=== PATIENT | male | born 1995 | race Caucasian/White ===

== ENCOUNTER 2022-06-11 15:00 | Outpatient (RCR) | payer MEDICARE, MEDICAID, SELFPAY ==
[2022-06-03 10:15] VITALS: BP 115/78; PULSE 99; TEMP 35.7; BMI 23.7
--- NOTE | 2022-06-03 11:18 | PCM.WC.HP ---
History of Present Illness Date of Service: 06/03/22 Chief Complaint: Left buttock ulcer History of Wound: Patient is accompanied with his mother. He is a 26 year old with a history of Spina bifida presents with a pressure ulcer that start six weeks ago. He bumped his buttocks sometime during the summer and did not tell his mother until it was infected and draining. He initially went to [facility] and was hospitalized 3 days, then transferred to [facility] and was admitted for a week. They were initially told he would need surgery, then were told he didn't need surgery. He was discharged 2 weeks ago. He has a history of Spina bifida which he has had bilateral hip surgery for hip dysplasia at age 8 and another surgery on legs bilaterally to help him wear braces to stand, which he never has been able to do. He had a sacral muscle flap at age 14 at [facility] for an ulcer. Also has a history of hydrocephalous with a shunt. He uses a wheelchair. He states his air cushion for his chair has deflated. He is not completely sure when he received his current wheelchair. He sleeps on a regular mattress with a foam overlay. Upon discharge from , there were no instructions on how to manage the wound. Patient's mother has been covering with large band aid and gauze. Wound care - Right buttocks ulcer Dakins 0.25% moistened gauze covered with ABD/Super absorber daily and as needed (he is incontinent of stool). Left buttock ulcer Aquacel-Ag covered with gauze daily. Wash ulcers with soap and water at the time of the dressing changes. Today denies fever, chills, nausea and vomiting. Appetite is typically good, he is recently getting over the GI flu, therefore has not been eating as much as he typically does. Progress of Wound: Left buttocks ulcer is stage IV, it is beefy pink tunneling into the muscle, with no bone exposure but is palpable. There is a small stage II ulcer on right buttocks that is beefy pink. [facility] Medical History Congenital hip dysplasia Ventricular shunt in place Allergy/AdvReac Type Severity Reaction Status Date / Time Penicillins Allergy Nausea/Vom/ Verified 06/03/22 10:45 Diarrhea Surgical History (Reviewed 06/03/22 @ 11:38 by Brianna Nunes WORKFORCE MANAGEMENT ANALYST, WORKFORCE MANAGEMENT ANALYST-C) S/P flap graft ROS Constitutional Constitutional: Reports as per HPI Eyes Eyes: Reports none ENT HEENT: Reports systems reviewed and no addt'l complaints, except as documented Cardiovascular Cardiovascular: Denies chest pain at rest or dyspnea Respiratory/Chest Respiratory/Chest: Reports systems reviewed and no addt'l complaints, except as documented Gastrointestinal Gastrointestinal: Reports fecal incontinence Genitourinary Genitourinary: Reports systems reviewed and no addt'l complaints, except as documented Musculoskeletal Musculoskeletal: Reports as per HPI Integumentary Integumentary: Reports as per HPI and skin ulcer Neurologic Neurologic: Reports as per HPI and other Details: Shunt placed for hydrocephalous Psychiatric Psychiatric: Reports systems reviewed and no addt'l complaints, except as documented Endocrine Endocrinology: Reports none Hematologic/Lymphatic Hematologic/Lymphatic: Reports none Allergic/Immunologic Allergic/Immunologic: Reports none Vital Signs Vital Signs Vital Signs: 06/03/22 10:15 Temperature 96.3 F L Temperature Source Temporal Pulse Rate 99 Blood Pressure 115/78 Blood Pressure Mean 90 Weight Weight: 175 lb Body Mass Index (BMI) 23.7 Physical Exam Const alert, oriented x3 and no apparent distress General Appearance: cooperative HEENT normocephalic Head and Scalp: atraumatic Eyes General Eye: normal appearance of both eyes Neck full ROM Resp normal respiratory effort, normal air movement and clear to auscultation bilaterally Effort and Inspection: able to speak in complete sentences Cardio regular rate and regular rhythm GI normal to inspection, nondistended, normoactive bowel sounds, soft to palpation and non-tender Back/Spine Cervical Spine: cervical ROM normal Extremity General Extremity: atrophy Skin Wound Narrative: Left buttocks ulcer is stage IV, it is beefy pink tunneling into the muscle, with no bone exposure but is palpable. There is a small stage II ulcer on right buttocks that is beefy pink. Neuro oriented x3 Psych cooperative and affect normal Debridement Note Debridement Note Wound debrided: buttock ulcer Laterality: Left Wound Grade/Stage: Stage IV Type of Debridement: Excisional debridement Anesthesia Used: 5% Lidocaine Gel Depth: Down to and including healthy tissue, in the subcutaneous layer and to muscle Percentage of wound debrided: 100 Instrument Used: 7mm curette Tissue Removed: Non vitalized tissue and slough Severity: Fat Layer Exposed Amount of bleeding with debridement: Mild Bleeding Controlled with: Compression and gauze Patient tolerated procedure: Patient tolerated procedure well Post-Debridement Measurements and Additional Note: Post-Debridement Measurements/Treatment - Nurse 1 - General Ulcer Assessment Start: 06/03/22 10:10 Freq: Status: Active Protocol: ANDREW Activity Type Activity Date Activity User E-sign Co-sign Detail Recorded Client Recorded Date Recorded By Document 06/03/22 10:15 JOSE ROBERTO [id number] 06/03/22 10:25 ID 06/03/22 10:15 WC - Today's Visit Information Type of service Initial Visit Arrival Mode Wheelchair Patient Identification Verified (Name & Yes ) Patient Requires Transmission-Based No Precautions Safety Precautions NA Height and Weight Height 6 ft Weight 175 lb Weight in Pounds 175.0 lbs Body Mass Index (BMI) 23.7 BMI Classification Normal BSA - Jayna 2.01 Vital Signs Temperature (97.8 F-99.1 F) 96.3 F L Temperature Source Temporal Pulse Rate (60-100) 99 Pulse Location Monitor Blood Pressure (90/60-120/80) 115/78 Blood Pressure Mean 90 History Since Last Visit- (Skip if this is Patient's initial visit) Has compression in place as prescribed N/A Has offloadiing in place as prescribed N/A Experienced any changes in pain level or No management Left Footwear Regular Shoe Right Footwear Regular Shoe Pain Scale: 0-10 Numeric Is Patient Pain Free? Yes [facility] Nurse 1 - General Ulcer Measurement Start: 06/03/22 10:10 Freq: Status: Active Protocol: Activity Type Activity Date Activity User E-sign Co-sign Detail Recorded Client Recorded Date Recorded By Document 06/03/22 10:15 JOSE ROBERTO [id number] 06/03/22 10:25 ID 06/03/22 10:15 Wound Center Nurse 1 #1 left buttucks -Current Size (cm) - Length 7 -Current Size (cm) - Width 5.8 -Current Size (cm) - Depth 2.5 -Total Square Cm 40.6 -Date of Last Picture (Recall this 06/03/22 field) -Photo Taken Yes -Tunneling Yes -Tunneling Position (O'clock) 9 -Tunneling Distance (cm) 5.2 -Tunneling Position #2 (O'clock) 3 -Undermining/Tunneling No -Circular Undermining No -Change in Wound Grade/Stage No -Exudate Amt Medium -Exudate Type Serosanguineous -Wound Margin Distinct, Outline Attached -Granulation Amt Large (67-100%) -Granulation Quality Burchinal,Red -Slough/Fibrin Yes -Necrosis Amt Medium (34-66%) -Necrotic Tissue Type Adherent Slough -Structure Exposed N/A -Texture (Meliza-wound Skin Appearance) No Abnormality, Assessed -Moisture (Meliza-wound Skin Appearance) No Abnormality, Assessed -Color (Meliza-wound Skin Appearance) No Abnormality, Assessed -Temperature (Meliza-wound Skin No Abnormality Appearance) (Pt Warm) -Tenderness on Palpation (Meliza-wound No Skin Appearance) -Ulcer Cleansing Soap and Water -Foul Odor after Cleansing No -Anesthetic Used 4% Lidocaine Solution WC - Nurse 2 - General Ulcer CM Notes Start: 06/03/22 10:10 Freq: Status: Active Protocol: Activity Type Activity Date Activity User E-sign Co-sign Detail Recorded Client Recorded Date Recorded By Document 06/03/22 10:54 BILLY [id number] 06/03/22 11:00 BILLY 06/03/22 10:54 Wound Center Nurse 2 2-right buttucks -Time 10:57 -Correct Patient Yes -Correct Side, Site, Position Yes -Correct Procedure Yes -Procedure Performed Yes -Type of Procedure Debridement -Clinical Debridement Subcutaneous -Tissue Removed Subcutaneous -Post Debridement (cm) - Length 1.4 -Post Debridement (cm) - Width 1.7 -Post Debridement (cm) - Depth 0.1 -Total Square (Post) (cm) 2.38 -Area of Debridement (cm) - Length 1.4 -Area of Debridement (cm) - Width 1.7 -Total Square (Area) (cm) 2.38 -Tunneling No -Undermining/Tunneling No -Circular Undermining No -Wound/Ulcer Outcome Not Healed -Ulcer Cleansing Rinsed/ Irrigated with Saline -Foul Odor after Cleansing No -Bioengineered Tissue No -Bleeding Controlled with Pressure -Treatment Response Procedure Tolerated Well -Offloading No -Debridement - Subq, 1st 20sq cm Yes #1 left buttucks -Time 10:55 -Correct Patient Yes -Correct Side, Site, Position Yes -Correct Procedure Yes -Procedure Performed Yes -Type of Procedure Incision & Drainage -Clinical Debridement Muscle / Fascia -Tissue Removed Muscle,Fascia -Post Debridement (cm) - Length 7.0 -Post Debridement (cm) - Width 6.5 -Post Debridement (cm) - Depth 5.3 -Total Square (Post) (cm) 45.50 -Area of Debridement (cm) - Length 7 -Area of Debridement (cm) - Width 6.5 -Total Square (Area) (cm) 45.5 -Tunneling No -Undermining/Tunneling No -Circular Undermining No -Wound/Ulcer Outcome Not Healed -Ulcer Cleansing Rinsed/ Irrigated with Saline -Foul Odor after Cleansing No -Bioengineered Tissue No -Bleeding Controlled with Pressure -Treatment Response Procedure Tolerated Well -Offloading No -Debridement - Muscle / Fascia, 1st Yes 20sq cm -Debridement, Muscle/Fascia, ea addt'l 3 20sq cm or part thereof Pain Scale: 0-10 Numeric Is Patient Pain Free? Yes Additional Wound Wound debrided: buttocks ulcer Laterality: Right Wound Grade/Stage: Stage II Type of Debridement: Excisional debridement Anesthesia Used: 5% Lidocaine Gel Depth: Down to and including healthy tissue and in the subcutaneous layer Percentage of wound debrided: 100 Instrument Used: 3mm curette Tissue Removed: Devitalized tissue and slough Severity: Fat Layer Exposed Amount of bleeding with debridement: Mild Bleeding Controlled with: Compression and gauze Patient tolerated procedure: Patient tolerated procedure well Charges/Coding Visit Charges Office Visits / Consults: 41140 OV L3 New (25 modifier) Procedures Integumentary [id number]: [id number] Camelia musc/fascia 20 sq cm/< (left buttock) Add On Codes: 14736 Camelia musc/fascia add-on (x2) Multi Select Codes Integumentary Integumentary CPT Codes: 29534 Camelia subq tissue 20 sq cm/< (right buttock) Assessment/Plan Assessment/Plan (1) Decubitus ulcer of left buttock, stage 4: CODE(S): L89.324 - Pressure ulcer of left buttock, stage 4 (2) Decubitus ulcer of right buttock, stage 2: CODE(S): L89.312 - Pressure ulcer of right buttock, stage 2 (3) Spina bifida: CODE(S): Q05.9 - Spina bifida, unspecified (4) Wheelchair dependence: CODE(S): Z99.3 - Dependence on wheelchair PLAN: Plan Patient evaluated at the wound center. Would like to obtain recent records from both [facility] [place] and inpatient visits. A wound culture was obtained today, 06/03/22.? A positive culture will necessitate antibiotic therapy. Wound care - Left buttock ulcer Dakins 0.25% moistened gauze covered with ABD/super absorber. Right buttock ulcer Aquacel-Ag covered with gauze. Both dressings are daily and as needed after washing with soap and water. A hospital bed with a low air loss mattress would be beneficial for his stage IV left buttock ulcer that is into the muscle and able to palpate bone. Would like to prevent this ulcer from worsening. A new Roho cushion for his wheelchair to help with pressure when he is sitting in it, his current cushion is flat. H should be evaluated to see if it is time for a new wheelchair. He has several areas on his wheelchair that could potentially cause injury if his legs were to bump into them. Greater than 40 minutes spent with patient and his mother evaluating, educating, establishing plan of care, and documenting.
[2022-06-11 15:27] VITALS: BP 123/92; PULSE 102; RESP 16; TEMP 36.8; BMI 23.7
--- NOTE | 2022-06-11 16:11 | PCM.WC.PN ---
History of Present Illness Date of Service: 06/11/22 Chief Complaint: Left buttock ulcer History of Wound: Patient is accompanied with his mother. He is a 26 year old with a history of Spina bifida presents with a pressure ulcer that start six weeks ago. He bumped his buttocks sometime during the summer and did not tell his mother until it was infected and draining. He initially went to [facility] on 04/28/22 and was hospitalized [address] was obtained on 04/29/22 that showed rim-enhancing perirectal fluid collection measuring 3.9 x 6.2 cm, compatible with an abscess and UTI, he was treated with Meropenem. He was transferred to [facility] and they performed a bedside debridement on 05/02/22, and went to interventional radiology for drainage of his perirectal abscess on 05/03/22 but IR didn't find anything to drain. He was discharged home on 05/05/22. He has a history of Spina bifida which he has had bilateral hip surgery for hip dysplasia at age 8 and another surgery on legs bilaterally to help him wear braces to stand, which he never has been able to do. He had a sacral muscle flap at age 14 at [facility] for an ulcer. Also has a history of hydrocephalous with a ventricular peritoneal catheter He uses a wheelchair. He states his air cushion for his chair has deflated. He is not completely sure when he received his current wheelchair. He sleeps on a regular mattress with a foam overlay. Upon discharge from , there were no instructions on how to manage the wound. Patient's mother has been covering with large band aid and gauze. Wound care - Left buttocks ulcer Dakins 0.25% moistened gauze covered with ABD/Super absorber daily and as needed (he is incontinent of stool). Right buttock ulcer Collagen hydrogel covered with gauze daily. Wash ulcers with soap and water at the time of the dressing changes. Wound culture from 06/03/22 positive for Bacillus sp. no anthracis and Staphylococcus epidermidis. Will start him on Levaquin. Today denies fever, chills, nausea and vomiting. Appetite is typically good, he is recently getting over the GI flu, therefore has not been eating as much as he typically does. Progress of Wound: Left buttocks ulcer is stage IV, it is beefy pink tunneling into the muscle, with no bone exposure but is palpable. There is a small stage II ulcer on right buttocks that is almost healed this week after using Aquacel-Ag on it. Objective Data Objective Data Vital Signs: Vital Signs Temp Pulse Resp BP O2 Del Method 98.3 F 102 H 16 123/92 H Room Air 06/11/22 15:27 06/11/22 15:27 06/11/22 15:27 06/11/22 15:27 06/11/22 15:27 Oxygen Delivery Method Room Air Weight: 175 lb Body Mass Index (BMI) 23.7 Lab / Micro Data Micro: Microbiology 06/03/22 10:50 Wound Abcess - Sacral Gram Stain - Final 06/03/22 10:50 Wound Abcess - Sacral Wound Culture - Final Bacillus sp., not anthracis Staphylococcus epidermidis 06/03/22 10:50 Wound Abcess - Sacral Anaerobic Culture - Final No anaerobic bacteria isolated. Charges/Coding Procedures Integumentary 111xxx-113xx: [id number] Camelia musc/fascia 20 sq cm/< Add On Codes: [id number] Camelia musc/fascia add-on (x2) Debridement Note Debridement Note Wound debrided: buttock ulcer Laterality: Left Wound Grade/Stage: Stage IV Type of Debridement: Excisional debridement Anesthesia Used: 5% Lidocaine Gel Depth: Down to and including healthy tissue, in the subcutaneous layer and to muscle Percentage of wound debrided: 100 Instrument Used: 7mm curette Tissue Removed: Non vitalized tissue and slough, into the muscle Severity: Fat Layer Exposed Amount of bleeding with debridement: Mild Bleeding Controlled with: Compression and gauze Patient tolerated procedure: Patient tolerated procedure well Post-Debridement Measurements and Additional Note: Post-Debridement Measurements/Treatment - Nurse 1 - General Ulcer Assessment Start: 06/03/22 10:10 Freq: Status: Active Protocol: ANDREW Activity Type Activity Date Activity User E-sign Co-sign Detail Recorded Client Recorded Date Recorded By Document 06/03/22 10:15 AK [id number] 06/03/22 10:25 AK Document 06/11/22 15:27 MW [id number] 06/11/22 15:47 MW 06/03/22 06/11/22 10:15 15:27 WC - Today's Visit Information Type of service Initial Visit Follow-up Visit (Physician/FIELD INVESTIGATOR ) Arrival Mode Wheelchair Wheelchair Transfer Assistance None Accompanied by mom Patient Identification Verified (Name & Yes Yes ) Patient Requires Transmission-Based No No Precautions Safety Precautions NA Fall Prevention Height and Weight Height 6 ft Weight 175 lb Weight in Pounds 175.0 lbs Body Mass Index (BMI) 23.7 23.7 BMI Classification Normal Normal BSA - Jayna 2.01 Vital Signs Temperature (97.8 F-99.1 F) 96.3 F L 98.3 F Temperature Source Temporal Temporal Pulse Rate (60-100) 99 102 H Pulse Location Monitor Monitor Respiratory Rate (12-18) 16 Respiratory rate source Observation Oxygen Delivery Method Room Air Blood Pressure (90/60-120/80) 115/78 123/92 H Blood Pressure Mean (mm Hg) 90 102 Source Monitor Position Sitting Blood Pressure Location Left Arm History Since Last Visit- (Skip if this is Patient's initial visit) Have you changed medications since your No last visit? Any new allergies or adverse reactions No Had a fall/change in ADL's that may No increase risk of falls Signs or symptoms of abuse and/or No neglect since last visit Have you been in the hospital since your No last visit? Has dressing in place as prescribed Yes Has compression in place as prescribed N/A N/A Has offloadiing in place as prescribed N/A Yes Experienced any changes in pain level or No No management Left Footwear Regular Shoe Regular Shoe Right Footwear Regular Shoe Regular Shoe Pain Scale: 0-10 Numeric Is Patient Pain Free? Yes Yes - Nurse 1 - General Ulcer Measurement Start: 06/03/22 10:10 Freq: Status: Active Protocol: Activity Type Activity Date Activity User E-sign Co-sign Detail Recorded Client Recorded Date Recorded By Document 06/03/22 10:15 AK [id number] 06/03/22 10:25 AK Document 06/11/22 15:27 MW [id number] 06/11/22 15:47 MW 06/03/22 06/11/22 10:15 15:27 Wound Center Nurse 1 2-right buttucks -Combined with other wound No -Current Size (cm) - Length 0.1 -Current Size (cm) - Width 0.1 -Current Size (cm) - Depth 0.1 -Total Square Cm 0.01 -Date of Last Picture (Recall this 06/11/22 field) -Photo Taken Yes -Epithelialization Small 1-33% -Tunneling No -Undermining/Tunneling No -Circular Undermining No -Exudate Amt Small -Exudate Type Serosanguineous -Wound Margin Flat & Intact -Granulation Amt Large (67-100%) -Granulation Quality Gulf -Slough/Fibrin Yes -Necrosis Amt Small (1-33%) -Necrotic Tissue Type Adherent Slough -Structure Exposed N/A -Texture (Meliza-wound Skin Appearance) No Abnormality, Assessed -Moisture (Meliza-wound Skin Appearance) No Abnormality, Assessed -Color (Meliza-wound Skin Appearance) No Abnormality, Assessed -Temperature (Meliza-wound Skin No Abnormality Appearance) (Pt Warm) -Tenderness on Palpation (Meliza-wound No Skin Appearance) -Ulcer Cleansing Soap and Water -Foul Odor after Cleansing No -Anesthetic Used 4% Lidocaine Solution #1 left buttucks -Combined with other wound No -Current Size (cm) - Length 7 7.2 -Current Size (cm) - Width 5.8 3.0 -Current Size (cm) - Depth 2.5 4.5 -Total Square Cm 40.6 21.60 -Date of Last Picture (Recall this 06/03/22 06/11/22 field) -Photo Taken Yes Yes -Epithelialization None Present -Tunneling Yes Yes -Tunneling Position (O'clock) 9 12 -Tunneling Distance (cm) 5.2 5.5 -Tunneling Position #2 (O'clock) 3 -Undermining/Tunneling No No -Circular Undermining No No -Change in Wound Grade/Stage No -Exudate Amt Medium Large -Exudate Type Serosanguineous Serosanguineous -Wound Margin Distinct, Distinct, Outline Outline Attached Attached -Granulation Amt Large (67-100%) Large (67-100%) -Granulation Quality Gulf,[place] -Slough/Fibrin Yes Yes -Necrosis Amt Medium (34-66%) Small (1-33%) -Necrotic Tissue Type Adherent Slough Adherent Slough -Structure Exposed N/A N/A -Texture (Meliza-wound Skin Appearance) No Abnormality, Assessed, Assessed Scarring -Moisture (Meliza-wound Skin Appearance) No Abnormality, No Abnormality, Assessed Assessed -Color (Meliza-wound Skin Appearance) No Abnormality, No Abnormality, Assessed Assessed -Temperature (Emliza-wound Skin No Abnormality No Abnormality Appearance) (Pt Warm) (Pt Warm) -Tenderness on Palpation (Meliza-wound No No Skin Appearance) -Ulcer Cleansing Soap and Water Soap and Water -Foul Odor after Cleansing No No -Anesthetic Used 4% Lidocaine 4% Lidocaine Solution Solution Lower Limb Edema Present NA WC - Nurse 2 - General Ulcer CM Notes Start: 06/03/22 10:10 Freq: Status: Active Protocol: Activity Type Activity Date Activity User E-sign Co-sign Detail Recorded Client Recorded Date Recorded By Document 06/03/22 10:54 [id number] 06/03/22 11:00 Document 06/11/22 16:05 [id number] 06/11/22 16:09 06/03/22 06/11/22 10:54 16:05 Wound Center Nurse 2 2-right buttucks -Time 10:57 -Correct Patient Yes No -Correct Side, Site, Position Yes No -Correct Procedure Yes No -Procedure Performed Yes No -Type of Procedure Debridement -Clinical Debridement Subcutaneous -Tissue Removed Subcutaneous -Post Debridement (cm) - Length 1.4 -Post Debridement (cm) - Width 1.7 -Post Debridement (cm) - Depth 0.1 -Total Square (Post) (cm) 2.38 -Area of Debridement (cm) - Length 1.4 -Area of Debridement (cm) - Width 1.7 -Total Square (Area) (cm) 2.38 -Tunneling No -Undermining/Tunneling No -Circular Undermining No -Wound/Ulcer Outcome Not Healed Not Healed -Ulcer Cleansing Rinsed/ Irrigated with Saline -Foul Odor after Cleansing No -Bioengineered Tissue No -Bleeding Controlled with Pressure -Treatment Response Procedure Tolerated Well -Offloading No -Debridement - Subq, 1st 20sq cm Yes #1 left buttucks -Time 10:55 16:06 -Correct Patient Yes Yes -Correct Side, Site, Position Yes Yes -Correct Procedure Yes Yes -Procedure Performed Yes Yes -Type of Procedure Incision & Debridement Drainage -Clinical Debridement Muscle / Fascia Muscle / Fascia -Tissue Removed Muscle,Fascia Muscle,Fascia -Post Debridement (cm) - Length 7.0 6.8 -Post Debridement (cm) - Width 6.5 7 -Post Debridement (cm) - Depth 5.3 6.3 -Total Square (Post) (cm) 45.50 47.6 -Area of Debridement (cm) - Length 7 6.8 -Area of Debridement (cm) - Width 6.5 7.0 -Total Square (Area) (cm) 45.5 47.60 -Tunneling No No -Undermining/Tunneling No No -Circular Undermining No No -Wound/Ulcer Outcome Not Healed Not Healed -Ulcer Cleansing Rinsed/ Rinsed/ Irrigated with Irrigated with Saline Saline -Foul Odor after Cleansing No No -Bioengineered Tissue No No -Bleeding Controlled with Pressure Pressure -Treatment Response Procedure Procedure Tolerated Well Tolerated Well -Offloading No No -Pressure Reduction Wheelchair cushion, Mattress overlay -Debridement - Muscle / Fascia, 1st Yes Yes 20sq cm -Debridement, Muscle/Fascia, ea addt'l 3 2 20sq cm or part thereof Pain Scale: 0-10 Numeric Is Patient Pain Free? Yes Yes - Nurse 3 - General Ulcer D/C NN Start: 06/03/22 10:10 Freq: Status: Active Protocol: Activity Type Activity Date Activity User E-sign Co-sign Detail Recorded Client Recorded Date Recorded By Document 06/03/22 11:18 DL [id number] 06/03/22 11:20 DL 06/03/22 11:18 Wound Care Nurse 3 2-right buttucks -Ulcer Cleansing Rinsed/ Irrigated with Saline -Foul Odor after Cleansing No -Other Dressing Aquacel Ag -Primary Dressing Covered/Secured with Dry Gauze, Secured with Tape #1 left buttucks -Ulcer Cleansing Rinsed/ Irrigated with Saline -Foul Odor after Cleansing No -Primary Dressing Applied Other -Other Dressing Dakins -Primary Dressing Covered/Secured with Dry Gauze -Other Covering ABD Treatment Response Procedure Tolerated Well Pain Scale: 0-10 Numeric Is Patient Pain Free? 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 Would like to obtain recent records from both [facility] and inpatient visits. Wound culture from 06/03/22 positive for Bacillus sp. no anthracis and Staphylococcus epidermidis. Will start him on Levaquin 500 mg daily. Wound care - Left buttock ulcer Dakins 0.25% moistened gauze covered with ABD/super absorber. Right buttock ulcer Collagen hydrogel covered with gauze. Both dressings are daily and as needed after washing with soap and water. A hospital bed with a low air loss mattress would be beneficial for his stage IV left buttock ulcer that is into the muscle and able to palpate bone. Would like to prevent this ulcer from worsening. A new Roho cushion for his wheelchair to help with pressure when he is sitting in it, his current cushion is flat. H should be evaluated to see if it is time for a new wheelchair. He has several areas on his wheelchair that could potentially cause injury if his legs were to bump into them. He has not heard from [employer] companies about a bed or Roho cushion yet. Follow up one week.
== END 2022-06-15 23:59 | disposition home or self-care (01) ==
LOC: WC 15:00
PROVIDERS: Visit Provider Nurse Practitioner Family
DX: L89.312 Pressure ulcer of right buttock, stage 2 (principal); L89.324 Pressure ulcer of left buttock, stage 4; Q05.9 Spina bifida, unspecified; Z99.3 Dependence on wheelchair
CPT/HCPCS: 11042; 11043; 11046; 87070; 87075; 87077; 87186; 87205; 99214; G0463

== ENCOUNTER 2022-07-02 15:00 | Outpatient (RCR) | payer MEDICARE, MEDICAID, SELFPAY ==
[2022-06-16 00:38] VITALS: BP 123/92; PULSE 102; RESP 16; TEMP 36.8; BMI 23.7
[2022-06-18 15:37] VITALS: BP 122/75; PULSE 110; RESP 16; BMI 23.7
--- NOTE | 2022-06-18 16:42 | PCM.WC.PN ---
History of Present Illness Date of Service: 06/18/22 Chief Complaint: Left buttock ulcer History of Wound: Patient is accompanied with his mother. He is a 26 year old with a history of Spina bifida presents with a pressure ulcer that start six weeks ago. He bumped his buttocks sometime during the summer and did not tell his mother until it was infected and draining. He initially went to [facility] and was hospitalized 3 days, then transferred to [facility] and was admitted for a week. They were initially told he would need surgery, then were told he didn't need surgery. He was discharged 2 weeks ago. He has a history of Spina bifida which he has had bilateral hip surgery for hip dysplasia at age 8 and another surgery on legs bilaterally to help him wear braces to stand, which he never has been able to do. He had a sacral muscle flap at age 14 at [facility] for an ulcer. Also has a history of hydrocephalous with a shunt. He uses a wheelchair. He states his air cushion for his chair has deflated. He is not completely sure when he received his current wheelchair. He sleeps on a regular mattress with a foam overlay. Upon discharge from , there were no instructions on how to manage the wound. Patient's mother has been covering with large band aid and gauze. Wound care - Left buttocks ulcer Dakins 0.25% moistened gauze covered with ABD/Super absorber daily and as needed (he is incontinent of stool). Right buttock ulcer is healed. Wash ulcers with soap and water at the time of the dressing changes. Wound culture from 06/03/22 positive for Bacillus sp. no anthracis and Staphylococcus epidermidis. Will start him on Levaquin. Today denies fever, chills, nausea and vomiting. Appetite is typically good, he is recently getting over the GI flu, therefore has not been eating as much as he typically does. Progress of Wound: Left buttocks ulcer is stage IV, it is beefy pink tunneling into the muscle, with no bone exposure but is palpable. The right buttocks ulcer is healed today. Objective Data Objective Data Vital Signs: Vital Signs Temp Pulse Resp BP O2 Del Method 98.3 F 110 H 16 122/75 H Room Air 06/16/22 00:38 06/18/22 15:37 06/18/22 15:37 06/18/22 15:37 06/18/22 15:37 Oxygen Delivery Method Room Air Weight: 175 lb Body Mass Index (BMI) 23.7 Charges/Coding Procedures Integumentary 111xxx-113xx: 78554 Camelia musc/fascia 20 sq cm/< Add On Codes: 12414 Camelia musc/fascia add-on (x2) Debridement Note Debridement Note Wound debrided: buttock ulcer Laterality: Left Wound Grade/Stage: Stage IV Type of Debridement: Excisional debridement Anesthesia Used: 5% Lidocaine Gel Depth: Down to and including healthy tissue, in the subcutaneous layer and to muscle Percentage of wound debrided: 100 Instrument Used: 7mm curette Tissue Removed: Non vitalized tissue and slough, into the muscle Severity: Fat Layer Exposed Amount of bleeding with debridement: Mild Bleeding Controlled with: Compression and gauze Patient tolerated procedure: Patient tolerated procedure well Post-Debridement Measurements and Additional Note: Post-Debridement Measurements/Treatment - Nurse 1 - General Ulcer Assessment Start: 06/18/22 15:37 Freq: Status: Active Protocol: ANDREW Activity Type Activity Date Activity User E-sign Co-sign Detail Recorded Client Recorded Date Recorded By Document 06/18/22 15:37 [facility] [id number] 06/18/22 15:49 [facility] 06/18/22 15:37 - Today's Visit Information Type of service Follow-up Visit (Physician/ROLL TENSION TESTER ) Arrival Mode Wheelchair Accompanied by mom Patient Identification Verified (Name & Yes ) Patient Requires Transmission-Based No Precautions Height and Weight Body Mass Index (BMI) 23.7 BMI Classification Normal Vital Signs Pulse Rate (60-100) 110 H Pulse Location Monitor Respiratory Rate (12-18) 16 Respiratory rate source Observation Oxygen Delivery Method Room Air Blood Pressure (90/60-120/80) 122/75 H Blood Pressure Mean (mm Hg) 90 Source Monitor Position Sitting Blood Pressure Location Left Arm History Since Last Visit- (Skip if this is Patient's initial visit) Have you changed medications since your No last visit? Any new allergies or adverse reactions No Had a fall/change in ADL's that may No increase risk of falls Signs or symptoms of abuse and/or No neglect since last visit Have you been in the hospital since your No last visit? Has dressing in place as prescribed Yes Has compression in place as prescribed N/A Has offloadiing in place as prescribed N/A Experienced any changes in pain level or No management Left Footwear Regular Shoe Right Footwear Regular Shoe Pain Scale: 0-10 Numeric Is Patient Pain Free? Yes WC - Nurse 1 - General Ulcer Measurement Start: 06/18/22 15:37 Freq: Status: Active Protocol: Activity Type Activity Date Activity User E-sign Co-sign Detail Recorded Client Recorded Date Recorded By Document 06/18/22 15:37 [facility] [id number] 06/18/22 15:49 [facility] 06/18/22 15:37 Wound Center Nurse 1 2-right buttucks -Combined with other wound No -Current Size (cm) - Length 0 -Current Size (cm) - Width 0 -Current Size (cm) - Depth 0 -Total Square Cm 0 -Date of Last Picture (Recall this 06/18/22 field) -Photo Taken Yes -Epithelialization Large 67-100% -Tunneling No -Undermining/Tunneling No -Circular Undermining No -Exudate Amt None Present -Texture (Meliza-wound Skin Appearance) Assessed, Scarring -Moisture (Meliza-wound Skin Appearance) Assessed -Color (Meliza-wound Skin Appearance) Assessed -Temperature (Meliza-wound Skin No Abnormality Appearance) (Pt Warm) -Tenderness on Palpation (Meliza-wound No Skin Appearance) -Ulcer Cleansing Soap and Water -Foul Odor after Cleansing No #1 left buttucks -Combined with other wound No -Current Size (cm) - Length 7.5 -Current Size (cm) - Width 6 -Current Size (cm) - Depth 3.5 -Total Square Cm 45.0 -Date of Last Picture (Recall this 06/18/22 field) -Photo Taken Yes -Epithelialization Small 1-33% -Tunneling Yes -Tunneling Position (O'clock) 12 -Tunneling Distance (cm) 4.9 -Undermining/Tunneling No -Circular Undermining No -Exudate Amt Large -Exudate Type Serosanguineous -Wound Margin Distinct, Outline Attached -Granulation Amt Large (67-100%) -Granulation Quality Pale,Red -Slough/Fibrin No -Necrosis Amt None Present (0 %) -Texture (Meliza-wound Skin Appearance) Assessed, Scarring -Moisture (Meliza-wound Skin Appearance) Assessed -Color (Meliza-wound Skin Appearance) No Abnormality, Assessed -Temperature (Meliza-wound Skin No Abnormality Appearance) (Pt Warm) -Tenderness on Palpation (Meliza-wound No Skin Appearance) -Ulcer Cleansing Soap and Water -Foul Odor after Cleansing No -Anesthetic Used 4% Lidocaine Solution LARISSA - Nurse 2 - General Ulcer CM Notes Start: 06/18/22 15:37 Freq: Status: Active Protocol: Activity Type Activity Date Activity User E-sign Co-sign Detail Recorded Client Recorded Date Recorded By Document 06/18/22 16:01 BILLY [id number] 06/18/22 16:05 BILLY 06/18/22 16:01 Wound Center Nurse 2 2-right buttucks -Correct Patient No -Correct Side, Site, Position No -Correct Procedure No -Procedure Performed No -Post Debridement (cm) - Length 0 -Post Debridement (cm) - Width 0 -Post Debridement (cm) - Depth 0 -Total Square (Post) (cm) 0 -Area of Debridement (cm) - Length 0 -Area of Debridement (cm) - Width 0 -Total Square (Area) (cm) 0 -Wound/Ulcer Outcome Healed- Epithelialized #1 left buttucks -Time 16:02 -Correct Patient Yes -Correct Side, Site, Position Yes -Correct Procedure Yes -Procedure Performed Yes -Type of Procedure Debridement -Clinical Debridement Muscle / Fascia -Tissue Removed Muscle,Fascia -Post Debridement (cm) - Length 7.2 -Post Debridement (cm) - Width 7.0 -Post Debridement (cm) - Depth 5.8 -Total Square (Post) (cm) 50.40 -Area of Debridement (cm) - Length 7.2 -Area of Debridement (cm) - Width 7 -Total Square (Area) (cm) 50.4 -Tunneling No -Undermining/Tunneling No -Circular Undermining No -Wound/Ulcer Outcome Not Healed -Ulcer Cleansing Rinsed/ Irrigated with Saline -Foul Odor after Cleansing No -Bioengineered Tissue No -Bleeding Controlled with Pressure -Treatment Response Procedure Tolerated Well -Offloading No -Pressure Reduction Wheelchair cushion -Debridement - Muscle / Fascia, 1st Yes 20sq cm -Debridement, Muscle/Fascia, ea addt'l 2 20sq cm or part thereof Pain Scale: 0-10 Numeric Is Patient Pain Free? Yes - Nurse 3 - General Ulcer D/C NN Start: 06/18/22 15:37 Freq: Status: Active Protocol: Activity Type Activity Date Activity User E-sign Co-sign Detail Recorded Client Recorded Date Recorded By Document 06/18/22 16:10 DL [id number] 06/18/22 16:11 DL 06/18/22 16:10 Wound Care Nurse 3 #1 left buttucks -Ulcer Cleansing Rinsed/ Irrigated with Saline -Foul Odor after Cleansing No -Other Dressing dakins -Primary Dressing Covered/Secured with Dry Gauze, Secured with Tape Treatment Response Procedure Tolerated Well Pain Scale: 0-10 Numeric Is Patient Pain Free? 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 Would like to obtain recent records from both [facility] and inpatient visits. Wound culture from 06/03/22 positive for Bacillus sp. no anthracis and Staphylococcus epidermidis. He is taking Levaquin. Right buttock is healed. Wound care - Left buttock ulcer Dakins 0.25% moistened gauze covered with ABD/super absorber daily and as needed after washing with soap and water. Will consider ordering a wound VAC. The concern about using the VAC is that there is not much room between the ulcer and the anal opening. It would be difficult to keep a good seal. He does not want a hospital bed. He states his bed has a egg crate foam mattress cover. A new Roho cushion for his wheelchair to help with pressure when he is sitting in it, his current cushion is flat. He states that he does not qualify for a new wheel chair for another 2 years. He has an electric wheel chair at home, but it keeps malfunctioning so he is using an older wheel chair. He should be receiving his Roho cushion in the next couple weeks. Follow up one week.
[2022-06-25 15:18] VITALS: BP 113/64; PULSE 108; RESP 16; BMI 23.7
--- NOTE | 2022-06-25 15:57 | PN.PCM_ITS ---
History of Present Illness Date of Service: 06/25/22 Chief Complaint: Left buttock ulcer History of Wound: Patient is accompanied with his mother. He is a 26 year old with a history of Spina bifida presents with a pressure ulcer that start six weeks ago. He bumped his buttocks sometime during the summer and did not tell his mother until it was infected and draining. He initially went to [facility] and was hospitalized 3 days, then transferred to [facility] and was admitted for a week. They were initially told he would need surgery, then were told he didn't need surgery. He was discharged 2 weeks ago. He has a history of Spina bifida which he has had bilateral hip surgery for hip dysplasia at age 8 and another surgery on legs bilaterally to help him wear braces to stand, which he never has been able to do. He had a sacral muscle flap at age 14 at [facility] for an ulcer. Also has a history of hydrocephalous with a shunt. He uses a wheelchair. He states his air cushion for his chair has deflated. He is not completely sure when he received his current wheelchair. He sleeps on a regular mattress with a foam overlay. Upon discharge from , per the patient there were no instructions on how to manage the wound. Patient's mother has been covering with large band aid and gauze. Wound care - Left buttocks ulcer Dakins 0.25% moistened gauze covered with ABD/Super absorber daily and as needed (he is incontinent of stool). Right buttock ulcer is healed. Wash ulcers with soap and water at the time of the dressing changes. Wound culture from 06/03/22 positive for Bacillus sp. no anthracis and Staphylococcus epidermidis. Will start him on Levaquin. Today denies fever, chills, nausea and vomiting. Appetite is typically good, he is recently getting over the GI flu, therefore has not been eating as much as he typically does. Progress of Wound: Left buttocks ulcer is stage IV, it is beefy pink tunneling into the muscle, with no bone exposure but is palpable. The right buttocks ulcer remains healed. Objective Data Objective Data Vital Signs: Vital Signs Temp Pulse Resp BP O2 Del Method 98.3 F 108 H 16 113/64 Room Air 06/16/22 00:38 06/25/22 15:18 06/25/22 15:18 06/25/22 15:18 06/25/22 15:18 Oxygen Delivery Method Room Air Weight: 175 lb Body Mass Index (BMI) 23.7 Charges/Coding Procedures Integumentary 111xxx-113xx: 29841 Camelia musc/fascia 20 sq cm/< Add On Codes: 54193 Camelia musc/fascia add-on (x2) Debridement Note Debridement Note Wound debrided: buttock ulcer Laterality: Left Wound Grade/Stage: Stage IV Type of Debridement: Excisional debridement Anesthesia Used: 5% Lidocaine Gel Depth: Down to and including healthy tissue, in the subcutaneous layer and to muscle Percentage of wound debrided: 100 Instrument Used: 7mm curette Tissue Removed: Non vitalized tissue and slough, into the muscle Severity: Fat Layer Exposed Amount of bleeding with debridement: Mild Bleeding Controlled with: Compression and gauze Patient tolerated procedure: Patient tolerated procedure well Post-Debridement Measurements and Additional Note: Post-Debridement Measurements/Treatment - Nurse 1 - General Ulcer Assessment Start: 06/18/22 15:37 Freq: Status: Active Protocol: ANDREW Activity Type Activity Date Activity User E-sign Co-sign Detail Recorded Client Recorded Date Recorded By Document 06/18/22 15:37 [facility] [id number] 06/18/22 15:49 [facility] Document 06/25/22 15:18 [facility] [id number] 06/25/22 15:30 [facility] 06/18/22 06/25/22 15:37 15:18 - Today's Visit Information Type of service Follow-up Visit Follow-up Visit (Physician/WARDROBE ASSISTANT (Physician/WARDROBE ASSISTANT ) ) Arrival Mode Wheelchair Wheelchair Transfer Assistance Other Transfer Assist (Other) 1 Accompanied by mom MOM Patient Identification Verified (Name & Yes Yes ) Patient Requires Transmission-Based No No Precautions Height and Weight Body Mass Index (BMI) 23.7 23.7 BMI Classification Normal Normal Vital Signs Pulse Rate (60-100) 110 H 108 H Pulse Location Monitor Monitor Respiratory Rate (12-18) 16 16 Respiratory rate source Observation Observation Oxygen Delivery Method Room Air Room Air Blood Pressure (90/60-120/80) 122/75 H 113/64 Blood Pressure Mean (mm Hg) 90 80 Source Monitor Monitor Position Sitting Sitting Blood Pressure Location Left Arm Right Forearm History Since Last Visit- (Skip if this is Patient's initial visit) Have you changed medications since your No No last visit? Any new allergies or adverse reactions No No Had a fall/change in ADL's that may No No increase risk of falls Signs or symptoms of abuse and/or No No neglect since last visit Have you been in the hospital since your No No last visit? Has dressing in place as prescribed Yes Yes Has compression in place as prescribed N/A N/A Has offloadiing in place as prescribed N/A N/A Experienced any changes in pain level or No No management Left Footwear Regular Shoe Regular Shoe Right Footwear Regular Shoe Regular Shoe Pain Scale: 0-10 Numeric Is Patient Pain Free? Yes Yes WC - Nurse 1 - General Ulcer Measurement Start: 06/18/22 15:37 Freq: Status: Active Protocol: Activity Type Activity Date Activity User E-sign Co-sign Detail Recorded Client Recorded Date Recorded By Document 06/18/22 15:37 [facility] [id number] 06/18/22 15:49 [facility] Document 06/25/22 15:18 [facility] [id number] 06/25/22 15:30 BMF 06/18/22 06/25/22 15:37 15:18 Wound Center Nurse 1 2-right buttucks -Combined with other wound No -Current Size (cm) - Length 0 -Current Size (cm) - Width 0 -Current Size (cm) - Depth 0 -Total Square Cm 0 -Date of Last Picture (Recall this 06/18/22 field) -Photo Taken Yes -Epithelialization Large 67-100% -Tunneling No -Undermining/Tunneling No -Circular Undermining No -Exudate Amt None Present -Texture (Meliza-wound Skin Appearance) Assessed, Scarring -Moisture (Meliza-wound Skin Appearance) Assessed -Color (Meliza-wound Skin Appearance) Assessed -Temperature (Meliza-wound Skin No Abnormality Appearance) (Pt Warm) -Tenderness on Palpation (Meliza-wound No Skin Appearance) -Ulcer Cleansing Soap and Water -Foul Odor after Cleansing No #1 left buttucks -Combined with other wound No No -Current Size (cm) - Length 7.5 5 -Current Size (cm) - Width 6 6.4 -Current Size (cm) - Depth 3.5 4.2 -Total Square Cm 45.0 32.0 -Date of Last Picture (Recall this 06/18/22 field) -Photo Taken Yes -Epithelialization Small 1-33% None Present -Tunneling Yes No -Tunneling Position (O'clock) 12 -Tunneling Distance (cm) 4.9 -Undermining/Tunneling No No -Circular Undermining No No -Exudate Amt Large Large -Exudate Type Serosanguineous Serosanguineous -Wound Margin Distinct, Distinct, Outline Outline Attached Attached -Granulation Amt Large (67-100%) Large (67-100%) -Granulation Quality Pale,Red [place] -Slough/Fibrin No No -Necrosis Amt None Present (0 None Present (0 %) %) -Texture (Meliza-wound Skin Appearance) Assessed, Assessed, Scarring Scarring -Moisture (Meliza-wound Skin Appearance) Assessed Assessed -Color (Meliza-wound Skin Appearance) No Abnormality, Assessed Assessed -Temperature (Meliza-wound Skin No Abnormality No Abnormality Appearance) (Pt Warm) (Pt Warm) -Tenderness on Palpation (Meliza-wound No No Skin Appearance) -Ulcer Cleansing Soap and Water Soap and Water -Foul Odor after Cleansing No No -Anesthetic Used 4% Lidocaine 4% Lidocaine Solution Solution WC - Nurse 2 - General Ulcer CM Notes Start: 06/18/22 15:37 Freq: Status: Active Protocol: Activity Type Activity Date Activity User E-sign Co-sign Detail Recorded Client Recorded Date Recorded By Document 06/18/22 16:01 [id number] 06/18/22 16:05 Document 06/25/22 15:45 [id number] 06/25/22 15:46 06/18/22 06/25/22 16:01 15:45 Wound Center Nurse 2 2-right buttucks -Correct Patient No -Correct Side, Site, Position No -Correct Procedure No -Procedure Performed No -Post Debridement (cm) - Length 0 -Post Debridement (cm) - Width 0 -Post Debridement (cm) - Depth 0 -Total Square (Post) (cm) 0 -Area of Debridement (cm) - Length 0 -Area of Debridement (cm) - Width 0 -Total Square (Area) (cm) 0 -Wound/Ulcer Outcome Healed- Epithelialized #1 left buttucks -Time 16:02 -Correct Patient Yes Yes -Correct Side, Site, Position Yes Yes -Correct Procedure Yes Yes -Procedure Performed Yes Yes -Type of Procedure Debridement Debridement -Clinical Debridement Muscle / Fascia Muscle / Fascia -Tissue Removed Muscle,Fascia Muscle,Fascia -Post Debridement (cm) - Length 7.2 6.2 -Post Debridement (cm) - Width 7.0 7 -Post Debridement (cm) - Depth 5.8 6.0 -Total Square (Post) (cm) 50.40 43.4 -Area of Debridement (cm) - Length 7.2 6.2 -Area of Debridement (cm) - Width 7 7.0 -Total Square (Area) (cm) 50.4 43.40 -Tunneling No No -Undermining/Tunneling No No -Circular Undermining No No -Wound/Ulcer Outcome Not Healed Not Healed -Ulcer Cleansing Rinsed/ Rinsed/ Irrigated with Irrigated with Saline Saline -Foul Odor after Cleansing No No -Bioengineered Tissue No No -Bleeding Controlled with Pressure Pressure -Treatment Response Procedure Procedure Tolerated Well Tolerated Well -Offloading No No -Pressure Reduction Wheelchair Wheelchair cushion cushion -Debridement - Muscle / Fascia, 1st Yes Yes 20sq cm -Debridement, Muscle/Fascia, ea addt'l 2 2 20sq cm or part thereof Pain Scale: 0-10 Numeric Is Patient Pain Free? Yes Yes - Nurse 3 - General Ulcer D/C NN Start: 06/18/22 15:37 Freq: Status: Active Protocol: Activity Type Activity Date Activity User E-sign Co-sign Detail Recorded Client Recorded Date Recorded By Document 06/18/22 16:10 DL [id number] 06/18/22 16:11 DL 06/18/22 16:10 Wound Care Nurse 3 #1 left buttucks -Ulcer Cleansing Rinsed/ Irrigated with Saline -Foul Odor after Cleansing No -Other Dressing dakins -Primary Dressing Covered/Secured with Dry Gauze, Secured with Tape Treatment Response Procedure Tolerated Well Pain Scale: 0-10 Numeric Is Patient Pain Free? Yes - Visit Discharge Discharge Condition Stable Ambulatory Status Wheelchair Transportation Private Auto Accompanied by mother Notes: dressing applied per Tianna Carmen RN Assessment/Plan Assessment/Plan (1) Stage IV pressure ulcer of sacral region: CODE(S): L89.154 - Pressure ulcer of sacral region, stage 4 (2) Spina bifida: CODE(S): Q05.9 - Spina bifida, unspecified (3) Wheelchair dependence: CODE(S): Z99.3 - Dependence on wheelchair PLAN: Plan Patient evaluated at the wound center. Received records from both [facility] and inpatient visits. CT showed 9 mm distal left ureteral calculus with mild hydronephrosis. He has not seen urology. Will refer him to urology for further evaluation. Wound culture from 06/03/22 positive for Bacillus sp. no anthracis and Staphylococcus epidermidis.? He is taking Levaquin. Right buttock is healed. Massage area with lotion to help soften scarring. Wound care - Left buttock ulcer Dakins 0.25% moistened gauze covered with ABD/super absorber daily and as needed after washing with soap and water. Will consider ordering a wound VAC.? The concern about using the VAC is that there is not much room between the ulcer and the anal opening.? It would be difficult to keep a good seal. He does not want a hospital bed because he does not have any room for it.? He states his bed has a egg crate foam mattress cover. He should be receiving his Roho cushion in the next couple weeks. I think he would benefit from being seen by Plastic Surgery to see if his flap can be advanced. Will discuss this with Dr. Arechiga to see if he can evaluate him within the next couple weeks. Follow up one week.?
[2022-07-02 15:10] VITALS: BP 133/88; PULSE 109; RESP 18; TEMP 37.2; BMI 23.7
--- NOTE | 2022-07-02 16:05 | PCM.WC.HP ---
History of Present Illness Date of Service: 07/02/22 Chief Complaint: WOUND CENTER CONSULT Referring Provider: RONALD Lobo. Manager Lighting: Dr. Arechiga. Recurrent left sacral pressure sore, Stage IV. History of Wound: 26 year old man with a history of Spina bifida presented to the Wound Center with a recurrent left sacral pressure sore that started a couple of months ago according to the patient. He bumped his buttocks sometime during the summer and did not tell his mother until it was infected and draining. He initially went to [facility] in April,, and was hospitalized 3 days for IV antibiotics with Meropenem and Clindamycin. Also received a dose of Vancomycin in the ED and had a skin rash. CT showed a rim-enhancing perirectal fluid collection measuring 3.9 x 6.2 cm, compatible with an abscess. He was transferred to [facility] where an I&D was performed. He has a history of Spina bifida which he has had bilateral hip surgery for hip dysplasia at age 8 and another surgery on legs bilaterally to help him wear braces to stand, which he never has been able to do. He had a sacral muscle flap at age 14 at [facility] for an ulcer. Also has a history of hydrocephalous with a shunt. Wound care - Dakins dressing changes. Wound culture from 06/03/22 positive for Bacillus sp. no anthracis and MRSE. He was started on Levaquin. Today denies fever. His appetite is ok. Progress of Wound: Recurrent left sacral pressure sore, Stage IV, shows good granulation tissue. There is tunneling superiorly to the bone. Bone is palpable but not exposed. [facility] Medical History (Updated 07/08/22 @ 23:[address] Costa Arechiga MD) Congenital hip dysplasia Stage IV pressure ulcer of sacral region Ventricular shunt in place Home Medications levofloxacin 500 mg tablet 500 mg PO DAILY 14 days #14 tabs 06/11/22 [Rx Last Taken Unknown] Allergy/AdvReac Type Severity Reaction Status Date / Time Penicillins Allergy Nausea/Vom/ Verified 07/08/22 23:36 Diarrhea Surgical History S/P flap graft Social History (Updated 07/08/22 @ 23:[address] Costa Arechiga MD) Smoking Status: Never smoker ROS ROS Narrative REVIEW OF SYSTEMS General - Denies fever, fatigue, and weight loss. Eyes - Denies cataracts and glaucoma. ENT - Denies nasal congestion and sore throat. Endocrine - Denies excessive thirst and urination. Skin - Denies suspicious lesions and skin cancer. Has recurrent left sacral pressure sore, Stage IV. Musculoskeletal - Denies joint pain, joint stiffness, weakness of muscles and joints, back pain, and arthritis. Had bilateral hip surgery with hardware. Neuro - Denies headaches. Has spina bifida. Has hydrocephalus with a shunt. Cardiovascular - Denies chest pain, fatigue, and shortness of breath with exertion. Psych - Denies anxiety and depression. Respiratory - Denies chronic cough and shortness of breath. Gastrointestinal - Denies nausea, vomiting, diarrhea, and constipation. Hematologic - Denies abnormal bruising and bleeding. Genitourinary - Denies hematuria and urinary frequency. Vital Signs Vital Signs Vital Signs: 07/02/22 15:10 Temperature 98.9 F Temperature Source Temporal Pulse Rate 109 H Respiratory Rate 18 Blood Pressure 133/88 H Blood Pressure Mean 103 Weight Weight: 175 lb Body Mass Index (BMI) 23.7 Physical Exam Narrative PHYSICAL EXAMINATION General - Alert and Oriented HEENT - PERRL. EOMI. Throat is clear. Neck - Supple and nontender. No cervical adenopathy. Lungs - Clear to auscultation. Heart - Regular rate and rhythm. Abdomen - Soft and nondistended. Buttock - There is a recurrent left sacral pressure sore, Stage IV. Superior tunneling down to the bone. Bone is palpable but not exposed. Bilateral scars from V-Y myocutaneous advancement flaps. Measures 7 x 6 x 4 cm. Superior tunneling measures 5 cm. The recurrent left sacral pressure sore is 2 cm from the anal opening. Neuro - CN II-XII grossly intact. Psych - Normal mood and affect. Debridement Note Debridement Note Wound debrided: #1 Left sacral area. Laterality: Left Wound Grade/Stage: IV. Type of Debridement: Excisional debridement Anesthesia Used: 4% Lidocaine Solution Depth: Down to and including healthy tissue, in the subcutaneous layer, to muscle and to bone (bone is palpable but not debrided.) Percentage of wound debrided: 100 Instrument Used: 7mm curette Tissue Removed: subcutaneous tissue and muscle. Severity: Fat Layer Exposed (muscle is exposed. bone is palpable but not exposed.) Amount of bleeding with debridement: Mild Bleeding Controlled with: Pressure and Compression and gauze Patient tolerated procedure: Patient tolerated procedure well Post-Debridement Measurements and Additional Note: Post-Debridement Measurements/Treatment WC - Nurse 1 - General Ulcer Assessment Start: 06/18/22 15:37 Freq: Status: Active Protocol: WC.LOWEXT Activity Type Activity Date Activity User E-sign Co-sign Detail Recorded Client Recorded Date Recorded By Document 06/18/22 15:37 BM [id number] 06/18/22 15:49 BM Document 06/25/22 15:18 BMF [id number] 06/25/22 15:30 BM Document 07/02/22 15:10 DL [id number] 07/02/22 15:19 DL 06/18/22 06/25/22 07/02/22 15:37 15:18 15:10 WC - Today's Visit Information Type of service Follow-up Visit Follow-up Visit Follow-up Visit (Physician/PAINT TINTER (Physician/PAINT TINTER (Physician/PAINT TINTER ) ) ) Arrival Mode Wheelchair Wheelchair Wheelchair Transfer Assistance Other None Transfer Assist (Other) 1 Accompanied by mom MOM Patient Identification Verified (Name & Yes Yes Yes ) Patient Requires Transmission-Based No No No Precautions Height and Weight Body Mass Index (BMI) 23.7 23.7 23.7 BMI Classification Normal Normal Normal Vital Signs Temperature (97.8 F-99.1 F) 98.9 F Temperature Source Temporal Pulse Rate (60-100) 110 H 108 H 109 H Pulse Location Monitor Monitor Monitor Respiratory Rate (12-18) 16 16 18 Respiratory rate source Observation Observation Observation Oxygen Delivery Method Room Air Room Air Blood Pressure (90/60-120/80) 122/75 H 113/64 133/88 H Blood Pressure Mean 90 80 103 Source Monitor Monitor Position Sitting Sitting Blood Pressure Location Left Arm Right Forearm History Since Last Visit- (Skip if this is Patient's initial visit) Have you changed medications since your No No No last visit? Any new allergies or adverse reactions No No No Had a fall/change in ADL's that may No No No increase risk of falls Signs or symptoms of abuse and/or No No No neglect since last visit Have you been in the hospital since your No No No last visit? Has dressing in place as prescribed Yes Yes Yes Has compression in place as prescribed N/A N/A N/A Has offloadiing in place as prescribed N/A N/A Yes Experienced any changes in pain level or No No No management Left Footwear Regular Shoe Regular Shoe Right Footwear Regular Shoe Regular Shoe Pain Scale: 0-10 Numeric Is Patient Pain Free? Yes Yes Yes WC - Nurse 1 - General Ulcer Measurement Start: 06/18/22 15:37 Freq: Status: Active Protocol: Activity Type Activity Date Activity User E-sign Co-sign Detail Recorded Client Recorded Date Recorded By Document 06/18/22 15:37 BM [id number] 06/18/22 15:49 BM Document 06/25/22 15:18 BMF [id number] 06/25/22 15:30 BMF Document 07/02/22 15:10 DL [id number] 07/02/22 15:19 DL 06/18/22 06/25/22 07/02/22 15:37 15:18 15:10 Wound Center Nurse 1 2-right buttucks -Combined with other wound No -Current Size (cm) - Length 0 -Current Size (cm) - Width 0 -Current Size (cm) - Depth 0 -Total Square Cm 0 -Date of Last Picture (Recall this 06/18/22 field) -Photo Taken Yes -Epithelialization Large 67-100% -Tunneling No -Undermining/Tunneling No -Circular Undermining No -Exudate Amt None Present -Texture (Meliza-wound Skin Appearance) Assessed, Scarring -Moisture (Meliza-wound Skin Appearance) Assessed -Color (Meliza-wound Skin Appearance) Assessed -Temperature (Meliza-wound Skin No Abnormality Appearance) (Pt Warm) -Tenderness on Palpation (Meliza-wound No Skin Appearance) -Ulcer Cleansing Soap and Water -Foul Odor after Cleansing No #1 left sacral area -Combined with other wound No No -Current Size (cm) - Length 7.5 5 6.6 -Current Size (cm) - Width 6 6.4 4.6 -Current Size (cm) - Depth 3.5 4.2 4.6 -Total Square Cm 45.0 32.0 30.36 -Date of Last Picture (Recall this 06/18/22 field) -Photo Taken Yes Yes -Epithelialization Small 1-33% None Present -Tunneling Yes No -Tunneling Position (O'clock) 12 -Tunneling Distance (cm) 4.9 -Undermining/Tunneling No No -Undermining/Tunneling Starts (O'clock 11 ) -Undermining/Tunneling Ends (O'clock) 5 -Maximum Distance (cm) 6.2 -Circular Undermining No No -Exudate Amt Large Large Large -Exudate Type Serosanguineous Serosanguineous Serosanguineous -Wound Margin Distinct, Distinct, Distinct, Outline Outline Outline Attached Attached Attached -Granulation Amt Large (67-100%) Large (67-100%) Large (67-100%) -Granulation Quality Pale,Red [place] Red -Slough/Fibrin No No -Necrosis Amt None Present (0 None Present (0 Small (1-33%) %) %) -Necrotic Tissue Type Adherent Slough -Structure Exposed N/A -Texture (Meliza-wound Skin Appearance) Assessed, Assessed, Scarring Scarring Scarring -Moisture (Meliza-wound Skin Appearance) Assessed Assessed Maceration -Color (Meliza-wound Skin Appearance) No Abnormality, Assessed No Abnormality Assessed -Temperature (Meliza-wound Skin No Abnormality No Abnormality No Abnormality Appearance) (Pt Warm) (Pt Warm) (Pt Warm) -Tenderness on Palpation (Meliza-wound No No No Skin Appearance) -Ulcer Cleansing Soap and Water Soap and Water Soap and Water -Foul Odor after Cleansing No No No -Anesthetic Used 4% Lidocaine 4% Lidocaine 4% Lidocaine Solution Solution Solution WC - Nurse 2 - General Ulcer CM Notes Start: 06/18/22 15:37 Freq: Status: Active Protocol: Activity Type Activity Date Activity User E-sign Co-sign Detail Recorded Client Recorded Date Recorded By Document 06/18/22 16:01 [id number] 06/18/22 16:05 Document 06/25/22 15:45 [id number] 06/25/22 15:46 Document 07/02/22 15:46 [id number] 07/02/22 15:58 06/18/22 06/25/22 07/02/22 16:01 15:45 15:46 Wound Center Nurse 2 2-right buttucks -Correct Patient No -Correct Side, Site, Position No -Correct Procedure No -Procedure Performed No -Post Debridement (cm) - Length 0 -Post Debridement (cm) - Width 0 -Post Debridement (cm) - Depth 0 -Total Square (Post) (cm) 0 -Area of Debridement (cm) - Length 0 -Area of Debridement (cm) - Width 0 -Total Square (Area) (cm) 0 -Wound/Ulcer Outcome Healed- Epithelialized #1 left sacral area -Time 16:02 15:46 -Correct Patient Yes Yes Yes -Correct Side, Site, Position Yes Yes Yes -Correct Procedure Yes Yes Yes -Procedure Performed Yes Yes Yes -Type of Procedure Debridement Debridement Debridement -Clinical Debridement Muscle / Fascia Muscle / Fascia Muscle / Fascia -Tissue Removed Muscle,Fascia Muscle,Fascia Muscle,Fascia -Post Debridement (cm) - Length 7.2 6.2 7.0 -Post Debridement (cm) - Width 7.0 7 5.8 -Post Debridement (cm) - Depth 5.8 6.0 3.6 -Total Square (Post) (cm) 50.40 43.4 40.60 -Area of Debridement (cm) - Length 7.2 6.2 7.0 -Area of Debridement (cm) - Width 7 7.0 5.8 -Total Square (Area) (cm) 50.4 43.40 40.60 -Tunneling No No Yes -Tunneling Position (O'clock) 12 -Tunneling Distance (cm) 5.5 -Undermining/Tunneling No No No -Circular Undermining No No No -Wound/Ulcer Outcome Not Healed Not Healed Not Healed -Ulcer Cleansing Rinsed/ Rinsed/ Rinsed/ Irrigated with Irrigated with Irrigated with Saline Saline Saline -Foul Odor after Cleansing No No No -Bioengineered Tissue No No No -Bleeding Controlled with Pressure Pressure Pressure -Treatment Response Procedure Procedure Procedure Tolerated Well Tolerated Well Tolerated Well -Offloading No No No -Pressure Reduction Wheelchair Wheelchair Wheelchair cushion cushion cushion, Specialty bed -Debridement - Muscle / Fascia, 1st Yes Yes Yes 20sq cm -Debridement, Muscle/Fascia, ea addt'l 2 2 2 20sq cm or part thereof Pain Scale: 0-10 Numeric Is Patient Pain Free? Yes Yes Yes WC - Nurse 3 - General Ulcer D/C NN Start: 06/18/22 15:37 Freq: Status: Active Protocol: Activity Type Activity Date Activity User E-sign Co-sign Detail Recorded Client Recorded Date Recorded By Document 06/18/22 16:10 DL [id number] 06/18/22 16:11 DL Document 06/25/22 15:57 DL [id number] 06/25/22 15:58 DL Document 07/02/22 16:02 DL [id number] 07/02/22 16:03 DL 06/18/22 06/25/22 07/02/22 16:10 15:57 16:02 Wound Care Nurse 3 #1 left sacral area -Ulcer Cleansing Rinsed/ Rinsed/ Rinsed/ Irrigated with Irrigated with Irrigated with Saline Saline Saline -Foul Odor after Cleansing No No No -Other Dressing dakins dakins dakins moistened gauze moistened gauze -Primary Dressing Covered/Secured with Dry Gauze, Dry Gauze, Dry Gauze, Secured with Secured with Secured with Tape Tape Tape Treatment Response Procedure Procedure Procedure Tolerated Well Tolerated Well Tolerated Well Pain Scale: 0-10 Numeric Is Patient Pain Free? Yes Yes Yes WC - Visit Discharge Discharge Condition Stable Stable Stable Ambulatory Status Wheelchair Wheelchair Wheelchair Transportation Private Auto Private Auto Private Auto Accompanied by mother Notes: dressing applied per Tianna Carmen RN Lab / Micro Data Attestation: I reviewed the patient's lab results. Charges/Coding Visit Charges Office Visits / Consults: 15139 OV L5 New (25 Modifier ICD-10 - L89.154, Q05.9, Z99.3, G91.9) Procedures Integumentary 111xxx-113xx: [id number] Camelia musc/fascia 20 sq cm/< (ICD-10 - L89.154, Q05.9, Z99.3, G91.9) Add On Codes: 05144 Camelia musc/fascia add-on (X2 Units ICD-10 - L89.154, Q05.9, Z99.3, G91.9) Assessment/Plan Assessment/Plan (1) Stage IV pressure ulcer of sacral region: CODE(S): L89.154 - Pressure ulcer of sacral region, stage 4 (2) Spina bifida: CODE(S): Q05.9 - Spina bifida, unspecified (3) Wheelchair dependence: CODE(S): Z99.3 - Dependence on wheelchair (4) Hydrocephalus: CODE(S): G91.9 - Hydrocephalus, unspecified PLAN: Plan Medical records reviewed. Labs and cultures reviewed. CT reviewed from Continue Dakins dressing changes. He was treated with Levaquin for MRSE from 06/03/22. He has a new Roho cushion for his wheelchair. He has an overlay mattress at home. He states a hospital low air loss bed won't fit into their trailer. The recurrent left sacral pressure sore shows good granulation tissue but there is superior tunneling that extends to the bone. Suspect underlying osteomyelitis. Recommend operative intervention with excision of the recurrent left sacral pressure sore, Stage IV, and partial ostectomy for osteomyelitis. Soft tissue and bone will be sent to Pathology for analysis to rule out carcinoma and to evaluate for osteomyelitis. Soft tissue and bone will be sent to Microbiology for culture. A positive culture will necessitate antibiotic therapy. Postoperatively may place a VAC. However it may be difficult to maintain a seal because of its proximity to the anal opening. While he is in the hospital, will have General Surgery evaluate for a diverting colostomy which can be done electively. Will also obtain a CT Pelvis to look for osteomyelitis. Anticipate increased metabolic demands from the pressure sore. Will check a Prealbumin and encourage nutritional supplementation with protein to help the healing process. After the infection has been treated and controlled and after his nutrition has been maximized and after the stool has been diverted with a colostomy, then we can begin to discuss wound closure with re-advancement of the gluteus apollo myocutaneous flaps in a V-Y fashion. Will try and get a hold of the operative report if possible to get a sense of whether the flaps have been maximally advanced initially or if more advancement can be done. If the flaps cannot be advanced enough to close the wound defect, we may be able to rotate a vastus lateralis muscle flap followed by skin grafting. I have used the vastus lateralis muscle flap to close the ipsilateral ischial pressure sore. However, reaching the sacral defect would be a longer stretch for the muscle. Also the muscle may have questionable viability after it is freed up distally because the proximal portion of the muscle where the vascular pedicle is may be compromised from previous hip surgery. Other option include a large lumbosacral fasciocutaneous flap. After surgery he would be on bedrest for 6 weeks. Surgery would be done under general anesthesia. Patient was informed of the risks and complications of the procedure including alternatives to surgery. These were discussed with the patient personally. Patient voices understanding and wishes to proceed. Potential risks and complications included but not inclusive of bleeding, infection seroma, hematoma, bruising, swelling, prolonged need for drains, loss of sensation to skin, partial or complete loss of muscle flap and/or skin graft, wound breakdown, need for wound care, poor scarring, poor aesthetic outcome, intra operative cardiac or neurologic events, DVT, PE, and reaction to anesthesia. Followup weekly until the surgery.
== END 2022-07-16 23:59 | disposition home or self-care (01) ==
LOC: WC 15:00
PROVIDERS: Visit Provider Nurse Practitioner Family
DX: L89.154 Pressure ulcer of sacral region, stage 4 (principal); L89.324 Pressure ulcer of left buttock, stage 4; L89.144 Pressure ulcer of left lower back, stage 4; L89.312 Pressure ulcer of right buttock, stage 2; Q05.9 Spina bifida, unspecified; Z99.3 Dependence on wheelchair
CPT/HCPCS: 11043; 11046

== ENCOUNTER 2022-07-16 16:56 | Observation (INO) | payer MEDICARE, MEDICAID, SELFPAY ==
[2022-07-16] VITALS (9 sets, daily range): BP systolic 108–135; BP diastolic 73–106; PULSE 92–126; RESP 16–18; TEMP 36.6–37.7; O2SAT 97–100; BMI 29.0
--- NOTE | 2022-07-16 10:54 | HP.PCM_ITS ---
History and Physical Date of Admission: 07/16/22 HISTORY OF PRESENT ILLNESS 26 year old man with a history of Spina bifida presented to the Wound Center with a recurrent left sacral pressure sore that started a couple of months ago according to the patient. ? He bumped his buttocks sometime during the summer and did not tell his mother until it was infected and draining. He initially went to [facility] in April,, and was hospitalized 3 days for IV antibiotics with Meropenem and Clindamycin.? Also received a dose of Vancomycin in the ED and had a skin rash.? CT showed a rim-enhancing perirectal fluid collection measuring 3.9 x 6.2 cm, compatible with an abscess.? He was transferred to [facility] where an I&D was performed.? ? He has a history of Spina bifida which he has had bilateral hip surgery for hip dysplasia at age 8 and another surgery on legs bilaterally to help him wear braces to stand, which he never has been able to do.? He had a sacral muscle flap at age 14 at [facility] for an ulcer. Also has a history of hydrocephalous with a shunt.? Wound care - Dakins dressing changes. ? ? Wound culture from 06/03/22 positive for Bacillus sp. no anthracis and MRSE.? He was started on Levaquin. Today denies fever.? His appetite is ok. ? PAST MEDICAL HISTORY Congenital hip dysplasia Stage IV pressure ulcer of sacral region Ventricular shunt in place PAST SURGICAL HISTORY S/P flap graft MEDICATIONS levofloxacin ALLERGIES latex penicillin FAMILY HISTORY Noncontributory SOCIAL HISTORY Smoking Status:? Never smoker REVIEW OF SYSTEMS General - Denies fever, fatigue, and weight loss. Eyes - Denies cataracts and glaucoma. ENT - Denies nasal congestion and sore throat. Endocrine - Denies excessive thirst and urination. Skin - Denies suspicious lesions and skin cancer.? Has recurrent left sacral pressure sore, Stage IV. Musculoskeletal - Denies joint pain, joint stiffness, weakness of muscles and joints, back pain, and arthritis.? Had bilateral hip surgery with hardware. Neuro - Denies headaches.? Has spina bifida.? Has hydrocephalus with a shunt. Cardiovascular - Denies chest pain, fatigue, and shortness of breath with exertion. Psych - Denies anxiety and depression. Respiratory - Denies chronic cough and shortness of breath. Gastrointestinal - Denies nausea, vomiting, diarrhea, and constipation. Hematologic - Denies abnormal bruising and bleeding. Genitourinary - Denies hematuria and urinary frequency. PHYSICAL EXAMINATION General - Alert and Oriented HEENT - PERRL. EOMI.? Throat is clear. Neck - Supple and nontender.? No cervical adenopathy. Lungs - Clear to auscultation. Heart - Regular rate and rhythm. Abdomen - Soft and nondistended. Buttock - There is a recurrent left sacral pressure sore, Stage IV.? Superior tunneling down to the bone.? Bone is palpable but not exposed.? Bilateral scars from V-Y myocutaneous advancement flaps.? Measures 7 x 6 x 4 cm.? Superior tunneling measures 5 cm.? The recurrent left sacral pressure sore is 2 cm from the anal opening. Neuro - CN II-XII grossly intact. Psych - Normal mood and affect. ASSESSMENT (1) Stage IV pressure ulcer of sacral region (L89.154). (2) Spina bifida (Q05.9). (3) Wheelchair dependence (Z99.3). (4) Hydrocephalus (G91.9). PLAN Medical records reviewed. Labs and cultures reviewed.? CT reviewed from 04/29/22. Continue Dakins dressing changes. He was treated with Levaquin for MRSE from 06/03/22. He has a new Roho cushion for his wheelchair.? He has an overlay mattress at home.? He states a hospital low air loss bed won't fit into their trailer. The recurrent left sacral pressure sore shows good granulation tissue but there is superior tunneling that extends to the bone.? Suspect underlying osteomyelitis. Recommend operative intervention with excision of the recurrent left sacral pressure sore, Stage IV, and partial ostectomy for osteomyelitis. Soft tissue and bone will be sent to Pathology for analysis to rule out carcinoma and to evaluate for osteomyelitis.? Soft tissue and bone will be sent to Microbiology for culture.? A positive culture will necessitate antibiotic therapy. Postoperatively may place a VAC.? However it may be difficult to maintain a seal because of its proximity to the anal opening. While he is in the hospital, will have General Surgery evaluate for a diverting colostomy which can be done electively. Will also obtain a CT Pelvis to look for osteomyelitis. Anticipate increased metabolic demands from the pressure sore.? Will check a Prealbumin and encourage nutritional supplementation with protein to help the healing process. After the infection has been treated and controlled and after his nutrition has been maximized and after the stool has been diverted with a colostomy, then we can begin to discuss wound closure with re-advancement of the gluteus apollo m yocutaneous flaps in a V-Y fashion.? Will try and get a hold of the operative report if possible to get a sense of whether the flaps have been maximally advanced initially or if more advancement can be done.? If the flaps cannot be advanced enough to close the wound defect, we may be able to rotate a vastus lateralis muscle flap followed by skin grafting.? I have used the vastus lateralis muscle flap to close the ipsilateral ischial pressure sore.? However, reaching the sacral defect would be a longer stretch for the muscle.? Also the muscle may have questionable viability after it is freed up distally because the proximal portion of the muscle where the vascular pedicle is may be compromised from previous hip surgery.? Other option include a large lumbosacral fasciocutaneous flap. After surgery he would be on bedrest for 6 weeks.? Surgery would be done under general anesthesia. Patient was informed of the risks and complications of the procedure including alternatives to surgery.? These were discussed with the patient personally.? Patient voices understanding and wishes to proceed. Potential risks and complications included but not inclusive of bleeding, infection seroma, hematoma, bruising, swelling, prolonged need for drains, loss of sensation to skin, partial or complete loss of muscle flap and/or skin graft, wound breakdown, need for wound care, poor scarring, poor aesthetic outcome, intra operative cardiac or neurologic events, DVT, PE, and reaction to anesthesia. Followup weekly until the surgery. Assessment & Plan Assessment/Plan (1) Spina bifida: (2) Wheelchair dependence: (3) Hydrocephalus: (4) Stage IV pressure ulcer of sacral region:
--- NOTE | 2022-07-16 13:02 | EKG12_ITS ---
Test Reason : PREOP Blood Pressure : / mmHG Vent. Rate : 111 BPM Atrial Rate : 111 BPM P-R Int : 126 ms QRS Dur : 082 ms QT Int : 330 ms P-R-T Axes : 024 028 019 degrees QTc Int : 448 ms Sinus tachycardia Otherwise normal ECG No previous ECGs available Confirmed by NAA RUVALCABA, VAL ([id number]), commissioning editor FATMATA HUDSON ([id number]) on 07/22/2022 12:57:16 PM Referred By: Costa Arechiga Confirmed By:PABLO JACOME MD
[2022-07-16] MEDS: Lactated Ringers 1,000 ML 15 ML IV (13:43)
[2022-07-16] MEDS: Vancomycin IV 1,000 MG/200 ML BAG 200 MG IV (13:45)
[2022-07-16 13:46] LABS: Hematocrit 38.8 % (40-54); Mean Corp Hgb Conc 30.9 g/dL (32-36); Mean Corpuscular Hgb 25.3 pg (27.0-32.0); Mean Corpuscular Volume 81.7 fL (80-94); Mean Platelet Vol. 9.1 fl (6.2-12.0); Platelet Count 350 K/mm3 (150-450); RBC Distribution Width CV 14.9 % (11.6-14.6); RBC Distribution Width SD 44.5 fl (35.1-43.9); Red Blood Count 4.75 M/mm3 (4.6-6.2); White Blood Count 12.4 K/mm3 (4.4-11.0)
[2022-07-16 13:57] LABS: Anion Gap 8 (5-15); BUN 15 mg/dL (7-18); BUN/Creat Ratio 19.5 RATIO (10-20); Calcium,Total 9.2 mg/dL (8.5-10.1); Chloride 104 mmol/L (98-107); Creatinine, Serum 0.77 mg/dL (0.70-1.30); EST Glomerular Filtration Rate 127 mL/min (>60); Est Glom Filt Rate - Afr Amer 154 mL/min (>60); Estimated Creatinine Clearance 133.54 ml/min; Glucose 108 mg/dL (74-106); Potassium 3.7 mmol/L (3.5-5.1); Sodium Level 139 mmol/L (136-145)
--- NOTE | 2022-07-16 14:15 | BONBX_PTH ---
PATIENT: INESSA ADAMES PETRONA LOC: MS3 U#:[id number] AGE/SX: 26/M ROOM: [facility] [place]07/16/[address]: Dr. Costa Arechiga MD : 1995 BED: 1 DIS: 07/17/2022 SPEC #: [id number] RECD: 07/16/22 16:44 STATUS: ELENO REVladislav #: [id number] JOSE ALFREDO: 07/16/22 14:[address]: Costa Arechiga DEPT: SURGICAL PATHOLOGY RECD BY: Nate Conley ENTERED: 07/17/22 10:32 SP TYPE: Bone OTHR DR: Snow Primary Care Phys Tissues: A - Sacral region B - Sacral region Procedures: Decalcification bone/plaque Surgery Specimen Level IV Surgery Specimen Level V HEADER OPERATION: Excision recurrent sacral pressure sore with partial ostectomy PRE-OP DIAGNOSIS: Spina bifida, stage IV pressure ulcer of sacral region TISSUE SUBMITTED: A ? Sacral bone biopsy, B ? Sacral pressure sore tissue MICROSCOPIC DIAGNOSIS A. Sacral bone, biopsy: Chronic reparative and reactive change. No evidence of acute osteomyelitis. B. Skin and soft tissue of sacral region, excision: Ulceration with associated acute and chronic inflammation and granulation. AM:doreen 07/22/2022 MICROSCOPIC DESCRIPTION Slides are reviewed. GROSS DESCRIPTION A - Received in fixative is one container labeled with the patient's name and designated sacral bone biopsy. The specimen consists of multiple pieces of bone that in aggregate measure 3 x 2.5 x 0.4 cm. The specimen is totally submitted in one cassette after decalcification. B - Received in fixative is one container labeled with the patient's name and designated sacral pressure ulcer tissue. The specimen consists of two pieces of skin and soft tissue measuring in aggregate 13 x 10 x 3 cm. The skin surface shows a focal area of ulceration. Formulator Compounder sections are submitted in two cassettes. / SJ:doreen 07/17/2022 TC:2 CPT: 02132, 74491, 02568
[2022-07-16] MEDS: Lidocaine 1% /Epi 1:100 (20ml) 20 ML Vial (15:30)
--- NOTE | 2022-07-16 15:55 | OP.PCM_ITS ---
Problems Associated Problem List Diagnoses (1) Stage IV pressure ulcer of sacral region: (2) Spina bifida: (3) Wheelchair dependence: (4) Hydrocephalus: (5) Methicillin resistant Staphylococcus epidermidis infection: Report of Operation Date of Procedure: 07/16/22 Pre-Operative Diagnosis: 1) Recurrent left sacral pressure sore, Stage IV (L89.154). (2) Spina bifida (Q05.9). (3) Wheelchair dependence (Z99.3). (4) Hydrocephalus (G91.9). (5) MRSE (A49.8). Post-Operative Diagnosis: Same. Surgery/Procedure Performed:: Excision recurrent left sacral pressure sore, Stage IV, with partial ostectomy for osteomyelitis. Description of Surgical Findings:: 26 year old man with a history of Spina bifida presented [facility] with a recurrent left sacral pressure sore that started a couple of months ago according to the patient. ? He bumped his buttocks sometime during the summer and did not tell his mother until it was infected and draining. He initially went to [facility] in April,, and was hospitalized 3 days for IV antibiotics with Meropenem and Clindamycin.? Also received a dose of Vancomycin in the ED and had a skin rash.? CT showed a rim-enhancing perirectal fluid collection measuring 3.9 x 6.2 cm, compatible with an abscess.? He was transferred to [facility] where an I&D was performed.? ? He has a history of Spina bifida which he has had bilateral hip surgery for hip dysplasia at age 8 and another surgery on legs bilaterally to help him wear braces to stand, which he never has been able to do.? He had a sacral muscle flap at age 14 at [facility] for an ulcer. Also has a history of hydrocephalous with a shunt.? Wound care - Dakins dressing changes. ? ? Wound culture from 06/03/22 positive for Bacillus sp. no anthracis and MRSE.? He was started on Levaquin. Patient was informed of the risks and complications of the procedure including alternatives to surgery. These were discussed with the patient personally. Patient voices understanding and wishes to proceed. Potential risks and complications included but not inclusive of bleeding, infection, hematoma, bruising, swelling, wound breakdown, need for wound care, poor scarring, poor aesthetic outcome, intra operative cardiac or neurologic events, DVT, PE, and reaction to anesthesia.? Size of wound left sacral area - 12 x 9 x 5 cm. Surgeon: Costa Arechiga MD one piece expansion maker hand: None Type of Anesthesia: Local MAC (xylocaine with epinephrine and IV sedation.) Anesthesiologist: Esa Fragoso MD and Linda Moore CRNA Specimen's removed: 1. Recurrent left sacral pressure sore soft tissue to Pathology and Microbiology. 2. Recurrent left sacral pressure sore bone to Pathology and Microbiology. Drains: None. Estimated Blood Loss (mL): 350. Description of Procedure: Patient was taken to OR in supine position and was given IV sedation. The patient was placed in the prone position. The sacral and buttock areas were prepped and draped in the usual fashion. SCD's were placed for DVT prophylaxis. Perioperative antibiotics were given intravenously. The recurrent left sacral pressure sore was infiltrated with xylocaine and epinephrine. After waiting 5 minutes for the anesthetic to take effect, An incision was made around the pressure sore into the subcutaneous tissue. The bursal scar tissue was thickened and excised. Dissection was carried down through the muscle to the bone. Inferiorly, the pressure extended to the anal sphincter muscle. Using rongeurs, a partial ostectomy was performed. I took several medical representative samples of bone. A rasp was used to smooth out the bony edges. The wound was irrigated with saline. Hemostasis was obtained with electrocautery. The size of the wound after excision of the recurrent left sacral pressure sore and partial ostectomy for osteomyelitis was 12 x 9 x 5 cm. Bone wax was used over the recently excised bone to help with hemostasis. Half the soft tissue and half the bone was sent to Pathology for analysis to rule out carcinoma and to evaluate for osteomyelitis. Half the soft tissue and half the bone was sent to Microbiology for culture. A positive culture will necessitate antibiotic therapy. The wound was dressed with Mepitel nonadherent dressing followed by Kerlix gauze and Betadine. This was followed with dry Kerlix gauze and ABD pads for a compression dressing. Patient tolerated the procedure well and was sent to PACU in satisfactory condition. Patient will be sent upstairs for continued postop care. It will be difficult to place the VAC because of the proximity to the anal opening. Inferiorly it extended to the anal sphincter muscle. Will have General Surgery evaluate for a diverting colostomy which can be done electively over the next few weeks. After discharge, will followup at the Wound Center. Grafts/Implants Used: Bone wax. Procedure Start Time: 14:49 Procedure Stop Time: 15:53 Complications None. Admit VTE Documentation VTE Present on Admission: No VTE Mechan Device Prophylaxis: SCD's VTE Pharm Prophylaxis ordered?: Yes Addendum Addendum: Surgery Charges CPT - 55913 ICD-10 - L89.154, Q05.9, Z99.3, G91.9, A49.8
--- NOTE | 2022-07-16 16:20 | SUR.PHASEI ---
PATIENT TURNED ON RIGHT SIDE, PRESSURE OFF SURGICAL WOUND
--- NOTE | 2022-07-16 17:20 | PCM.RX.CS ---
Consult Pharmacy has been consulted to manage selected antiobiotic: Vancomycin Type of Consult: New start Suspected Infection: Skin/Soft tissue Prior Doses of Antibiotics Received/Current Regimen: received vancomycin 1000mg IV x1 preop at 13:45 today Labs: Sodium 139 mmol/L (136-145) 07/16/22 13:30 Potassium 3.7 mmol/L (3.5-5.1) 07/16/22 13:30 Chloride 104 mmol/L (98-107) 07/16/22 13:30 Carbon Dioxide 27.0 mmol/L (21.0-32.0) 07/16/22 13:30 Anion Gap 8 (5-15) 07/16/22 13:30 BUN 15 mg/dL (7-18) 07/16/22 13:30 Creatinine 0.77 mg/dL (0.70-1.30) 07/16/22 13:30 Est GFR (MDRD) Af Amer 154 mL/min (>60) 07/16/22 13:30 Est GFR (MDRD) Non-Af 127 mL/min (>60) 07/16/22 13:30 BUN/Creatinine Ratio 19.5 RATIO (10-20) 07/16/22 13:30 Glucose 108 mg/dL (74-106) H 07/16/22 13:30 Weight used for dosin.9 kg Estimated Creatinine Clearance: >100ml/min Goal Trough: 10-15 mcg/mL Pharmacy Plan for Drug Dosing: Per [facility] dosing protocol, will continue with vanc 1250mg IV q12h and will start this approximately 10 hours after the preop dose since that preop dose was not quite at the standard 15mg/kg dose that is initially ordered. Will order a trough before the 4th total dose tomorrow night. Pharmacy Service will continue to monitor and adjust dosing as required. Follow-Up Labs: Trough Vancomycin Labs to be done on [date and time ordered]: 07/17/22 23:30
[2022-07-17 02:00] VITALS: BP 118/57; PULSE 103; RESP 18; TEMP 36.8; O2SAT 95
[2022-07-17 06:20] LABS: Hematocrit 34.2 % (40-54); Hemoglobin 10.1 g/dL (13.0-16.5); Mean Corp Hgb Conc 29.5 g/dL (32-36); Mean Corpuscular Volume 84.7 fL (80-94); Mean Platelet Vol. 9.6 fl (6.2-12.0); Platelet Count 282 K/mm3 (150-450); RBC Distribution Width CV 15.1 % (11.6-14.6); RBC Distribution Width SD 46.5 fl (35.1-43.9); Red Blood Count 4.04 M/mm3 (4.6-6.2); White Blood Count 10.4 K/mm3 (4.4-11.0)
[2022-07-17 06:53] VITALS: O2SAT 99
[2022-07-17 07:00] LABS: Anion Gap 7 (5-15); BUN 14 mg/dL (7-18); BUN/Creat Ratio 19.1 RATIO (10-20); Calcium,Total 8.2 mg/dL (8.5-10.1); Chloride 108 mmol/L (98-107); Creatinine, Serum 0.73 mg/dL (0.70-1.30); EST Glomerular Filtration Rate 135 mL/min (>60); Est Glom Filt Rate - Afr Amer 163 mL/min (>60); Estimated Creatinine Clearance 140.85 ml/min; Glucose 95 mg/dL (74-106); Potassium 4.1 mmol/L (3.5-5.1); Prealbumin 14.6 mg/dL (20.0-40.0); Sodium Level 140 mmol/L (136-145)
[2022-07-17 08:53] VITALS: BP 112/67; PULSE 105; RESP 18; TEMP 37.1; O2SAT 100
--- NOTE | 2022-07-17 09:47 | WOUNDNOTE ---
wound photo: sacrum
[2022-07-17] MEDS: Enoxaparin 40 MG/0.4 ML Syringe SC (10:23)
[2022-07-17] MEDS: Juven (unflavored) Packet 1 PACKET PO (10:23)
[2022-07-17] MEDS: Multivitamins,Therapeutic Tablet 1 TABLET PO (10:23)
--- NOTE | 2022-07-17 10:31 | NURSING ---
This RN is aware of Ronit Gaitan [employer] Software Team Leader Vitals that were obtained earlier today.
--- NOTE | 2022-07-17 11:09 | CT_ITS ---
STUDY: CT PELVIS WITHOUT CONTRAST REASON FOR EXAM: Male, 26 years old. Recurrent left sacral pressure sore, Stage IV RADIATION DOSAGE (If Supplied By Facility): CTDIvol = ( 27.80 ) mGy, DLP = ( 975.69 ) mGycm TECHNIQUE: Transaxial imaging of the pelvis was performed with oral contrast, and without intravenous administration of contrast material. Multiplanar coronal and sagittal images were reformatted. Individualized dose optimization techniques were used for this CT. COMPARISON: None. FINDINGS: There is a 6.1 cm x 4 cm x 7.9 cm large soft tissue defect in the medial aspect of the right buttock and mild involvement of the medial aspect of the left buttock. This tissue defect abuts the distal sacrum and coccygeal elements. Packing material is seen within the defect. There is no evidence of the bony destruction at this time. Small calculi are seen at the base of the urinary bladder. The urinary bladder is mildly dilated and irregular in contour. Surgical anastomosis seen in the right lower quadrant. Normal visualized small intestine. Normal visualized colon. There is no pelvic fluid. There is no pelvic mass lesion or lymphadenopathy. Normal visualized pelvic arteries. Normal abdominal wall. There is a destruction of the left femoral head with cephalic migration of the left femur and deformity of the shaft of the proximal left femur. CT/Pelvis without IV Contrast IMPRESSION: Large soft tissue defect as described. No evidence of osteomyelitis of the sacrum or coccygeal elements. Small calculi at the base of the urinary bladder which is deformed. Cephalic migration of a deformed proximal left femur Electronically Signed: Audie Dozier MD at 13:42 EST ,
--- NOTE | 2022-07-17 11:37 | CASEMGMT ---
RAMILA CM in to pt room to complete assessment, pt is off of the floor at this time.
[2022-07-17] MEDS: 0.9% Saline Lock 10 ML Syringe IV (12:10)
--- NOTE | 2022-07-17 13:35 | CON.PCM.SX_ITS ---
Assessment & Plan Assessment/Plan (1) Decubitus ulcer of left buttock, stage 4: PLAN: This is a 26-year-old male, past medical history inclusive of spina bifida and wheelchair dependence who is under management of plastic surgery for a stage IV decubitus ulcer of the left buttock. General surgery was asked to evaluate the patient for possible fecal diversion via a colostomy. I attempted to educate patient that such an arrangement would be used to improve his chances of healing his current wound and remove the constant threat of infection through contamination. Patient flatly stated that he was not interested at this time. It is also noted that patient has a rather complex past surgical history with the presence of a TROLLEY COACH DRIVER shunt and urinary conduit?both coursing through the right abdomen. In the event patient were to change his mind with respect to a colostomy, he should be evaluated at a facility where there is urologic e xpertise with his anatomy since any planned surgical intervention for a colostomy would involve right-sided port placement in the vicinity of these prior interventions. HPI Consult Data Date of Consult: 07/17/22 HPI Narrative Reason for Consultation: Consideration of fecal diversion with diverting colostomy HPI Narrative: INESSA ADAMES, is a 26 M who is admitted to plastic surgery for management of a stage IV decubitus ulcer of the left buttock. Patient has a history of spina bifida and is wheelchair dependent for his mobilization. He states that the current wound started 3 months ago as he would bang his backside against the wheel of his wheelchair. He admits there have been previous wounds, but not as deep as the current wound. He underwent operative debridement with Dr. Arechiga yesterday 07/16/2022 and surgery was asked to evaluate patient for possible diverting colostomy given the proximity of the patient's wound to his waste stream and difficulty obtaining a wound VAC seal as a consequence. Patient's surgical history includes placement of a TROLLEY COACH DRIVER shunt to his right abdomen as well as creation of a urinary conduit (also on the right side of his abdomen) that exits at his umbilicus. [facility] Medical History (Updated 07/17/22 @ 15:22 by Brianna Nunes NP, PLATING FOREMAN-C) Anxiety Cognitive decline Congenital hip dysplasia Heartburn History of edema Hx of spina bifida Incontinence of bowel Kidney stone Methicillin resistant Staphylococcus epidermidis infection Non-smoker Presence of urostomy Psoriasis Seizures Stage IV pressure ulcer of sacral region Uses wheelchair Ventricular shunt in place Home Medications garlic 500 mg PO DAILY 07/12/22 [History Last Taken Unknown] multivitamin 1 cap PO DAILY 07/12/22 [History Last Taken Unknown] vitamin E 400 unit tablet 45 mg PO DAILY 07/12/22 [History Last Taken Unknown] arginine 7 gram-glutam 7 gram-CaHMB 1.5 [id number]-vt-min oral pwd pkt (Von (with collagen)) 1 packet PO BIDCM 30 days #60 ea 07/17/22 [Rx Last Taken Unknown] docusate sodium 100 mg capsule (Colace) 100 mg PO DAILY 60 days #60 caps 07/17/22 [Rx Last Taken Unknown] levofloxacin 500 mg tablet 500 mg PO DAILY 21 days #21 tabs 07/17/22 [Rx Last Taken Unknown] oxycodone-acetaminophen 5 mg-325 mg tablet (Percocet) 1 tab PO TID PRN pain (scale score 7-10) 4 days #10 tabs 07/17/22 [Rx Last Taken Unknown] sodium hypochlorite 0.25 % solution (HySept) 1 applic topical DAILY 30 days #1 BOTTLE 07/17/22 [Rx Last Taken Unknown] Allergy/AdvReac Type Severity Reaction Status Date / Time latex Allergy Hives Verified 07/16/22 13:33 Penicillins Allergy Nausea/Vom/ Verified 07/16/22 13:33 Diarrhea Surgical History S/P flap graft Social History (Updated 07/08/22 @ 23:[address] Costa Arechiga MD) Smoking Status: Never smoker Physical Exam Const alert and no apparent distress General Appearance: cooperative Resp normal respiratory effort Effort and Inspection: able to speak in complete sentences GI GI Narrative: Nondistended abdomen. Surgical scars on right consistent with prior TROLLEY COACH DRIVER shunt placement. Mucosal os present of the umbilicus which patient states is his urinary conduit. Lab / Micro Data Result Diagrams: 07/17/22 05:37 07/17/22 05:37 Labs: Laboratory Results - last 24 hr 07/16/22 13:30: WBC 12.4 H, RBC 4.75, Hgb 12.0 L, Hct 38.8 L, MCV 81.7, MCH 25.3 L, MCHC 30.9 L, RDW Std Deviation 44.5 H, RDW Coeff of Cathy 14.9 H, Plt Count 350, MPV 9.1 07/16/22 13:30: Sodium 139, Potassium 3.7, Chloride 104, Carbon Dioxide 27.0, Anion Gap 8, BUN 15, Creatinine 0.77, Estim Creat Clear Calc 133.54, Est GFR (MDRD) Af Amer 154, Est GFR (MDRD) Non-Af 127, BUN/Creatinine Ratio 19.5, Glucose 108 H, Calcium 9.2 07/17/22 05:37: WBC 10.4, RBC 4.04 L, Hgb 10.1 L, Hct 34.2 L, MCV 84.7, MCH 25.0 L, MCHC 29.5 L, RDW Std Deviation 46.5 H, RDW Coeff of Cathy 15.1 H, Plt Count 282, MPV 9.6 07/17/22 05:37: Sodium 140, Potassium 4.1, Chloride 108 H, Carbon Dioxide 25.0, Anion Gap 7, BUN 14, Creatinine 0.73, Estim Creat Clear Calc 140.85, Est GFR (MDRD) Af Amer 163, Est GFR (MDRD) Non-Af 135, BUN/Creatinine Ratio 19.1, Glucose 95, Calcium 8.2 L, Prealbumin 14.6 L Micro: Microbiology 07/16/22 Unknown Tissue Ulcer - Sacral Pressure Sore Wound Culture - Preliminary Gram negative cynthia 07/16/22 Unknown Bone - Sacral Bone Wound Culture - Preliminary Gram negative cynthia
--- NOTE | 2022-07-17 13:52 | CASEMGMT ---
Addendum entered by Sophie Peraza 07/17/22 14:46: RAMILA LONG in to pt room, he tried to call his mother and received same message. Provided pt with RAMILA LONG card and he will notify mother she can call if she would like assistance setting up PCP appt. Pt to dc today. Addendum entered by Sophie Peraza 07/17/22 14:37: Spoke with TUFTER OPERATOR Brianna Nunes, states pt and mother have not been interested in [facility] services. RAMILA LONG in to pt room, pt does not have [facility] card with him to see if a PCP is listed. He states his mother has it. TC to pt mother, phone unavailable now. TC to [facility], spoke with Miguel A, states they do accept [facility] patients and would accept a pt with spina bifida. Notified pt of this. Attempted again to call pt mother and call states phone is unavailable now. Marked in pamphlet in pt room for mother to know. Did not set up appt as pt wants to wait for mother to decide PCP. Original Note: RAMILA LONG Assessment: Face to Face with pt for initial transition planning/care coordination assessment. RAMILA LONG introduced self and role at [facility], pt voices understanding and consents to assessment. Pt is A/O x4 and answers all questions appropriately at this time. Care providers, pharmacy, and demographics verified/updated. Pt gave permission for RAMILA LONG to call his mother to discuss care. Admitting Dx: excision left sacral pressure sore partial ostectomy PCP:Pt denies. Pt states that he cannot find a doctor that takes medicaid and will see him d/t his spina bifida. Pt is agreeable to a local healthcare directory. He states he would like his mother to pick the PCP. Specialists:Geni OR [facility] Pharmacy: [facility] Insurance: [facility] Prescription Benefit: yes LNOK: Myrna Perez, mother Living Arrangements: Pt lives with mother in a mobile home with a ramp to enter. Pt reports he is able to bathe himself but his mother assists with dressing him. Pt denies concerns at home. Transportation: Pt mother provides transportation. DME/HHC/SNF: Pt has a w/c. He states it was a smart drive w/c but the motor got wet and he is unable to get a new one for 2 mos. Pt also has a foam mattress on his bed, roho cushion and a shower chair. Pt denies hx of HHC or SNF stays. Pt states no concerns with going home at time of dc. He states his mother has been doing his wound care and will continue. He does see the [facility] and they have set up pt with a supply company. Pt does not know the name of the company. Pt states he caths himself and they wash and reuse the catheters. States he is unable to get new catheters d/t not having PCP. Pt states no further concerns/needs. CM to follow. Advised pt to ask CM if any further question/concerns/needs arise, voices understanding. Pt Goal: Home with mother resuming dressing changes Plan: Home with mother resuming dressing changes TC to pt mother Myrna. She also states pt does not have a PCP because they cannot find a doctor who will take pt. Discussed with her that RN MERCEDES can provide a local healthcare directory pamphlet of healthcare providers. She states she will be in or leave with pt. She is aware that pt would like her to pick PCP. Also made her aware that should pt have a pcp, there is potential for [facility] to assist her with wound care. She states she was a nurse for 20 years and she has no issues to perform the wound care for pt. She is not interested in [facility] for this. She does not know which company provides pt with wound supplies. She states pt will have an appt in [place] upcoming for a kidney stone but does not know the name of the doctor. She denies any questions at this time.
[2022-07-17 14:46] VITALS: BP 101/61; PULSE 99; RESP 18; TEMP 36.8; O2SAT 100
--- NOTE | 2022-07-17 15:03 | DCINST_ITS ---
Discharge Instructions Diet Discharge Diet: No restrictions (increase protein intake) Activity Discharge Activity: - (avoid sitting for long periods of time. Make sure to off load off of buttocks) May resume sexual activity in: No Restrictions Dressing / Incision Call your doctor if your incision/area has: Continuous Slow Oozing, Sudden Increased Bleeding, Increased Pain/ Swelling, Increased Redness and Foul Smelling Discharge Call your doctor if you observe: Fever of 101 or Higher, Inability to have a bowel movement, Shortness of breath, Chest pain, Calf discomfort and Un controlled pain Change Dressing in: 1 day Cleanse incision/area with: Soap & Water Additional Dressing/Incision Instructions:: Dakins 0.25% moistened gauze covered with ABD or super absorber daily and as needed. Follow Up Care Please Follow Up With: Brianna Nunes COMPUTER TECHNOLOGY INSTRUCTOR, COMPUTER TECHNOLOGY INSTRUCTOR-C When: Friday07/22/22 at the wound center as previously scheduled Test Results: Test results from this visit will be discussed in further detail at your follow- up appointment, if applicable. Discharge Plan Admission Admit Date/Time: 07/16/22 16:56 Attending Provider: Costa Arechiga Primary Care Provider: Care Physician,No Primary Consulting Providers: Sunil Dougherty Discharge Orders/Prescriptions Prescriptions: New HySept 0.25 % Solution 1 applic topical DAILY 30 Days Qty: 1 0RF Protocol: *Topical Application Instructions APPLICATION INSTRUCTIONS: sacral wound Von (with collagen) 7-7-1.5 gram Powder In Packet 1 packet PO BIDCM 30 Days Qty: 60 1RF levofloxacin 500 mg tablet 500 mg PO DAILY 21 Days Qty: 21 1RF oxycodone-acetaminophen [Percocet] 5-325 mg tablet 1 tab PO TID PRN (Reason: pain (scale score 7-10)) 4 Days Qty: 10 0RF docusate sodium [Colace] 100 mg capsule 100 mg PO DAILY 60 Days Qty: 60 0RF Continued vitamin E 400 unit Tablet 45 mg PO DAILY garlic Capsule 500 mg PO DAILY multivitamin Capsule 1 cap PO DAILY Referrals / Follow Up: Care Physician,No Primary [Primary Care Provider] - Disposition Disposition (needs filled in before D/C Order can be placed): Home Health Service
--- NOTE | 2022-07-17 15:27 | PCM.PN.SRG ---
Subjective Subjective Postop day #1 Patient states his pain is controlled. Objective Data Objective Data Vital Signs: Vital Signs Temp Pulse Resp BP Pulse Ox O2 Del Method 98.3 F 99 18 101/61 100 Room Air 07/17/22 14:46 07/17/22 14:46 07/17/22 14:46 07/17/22 14:46 07/17/22 14:46 07/17/22 14:47 Oxygen Delivery Method Room Air Weight: 185 lb Body Mass Index (BMI) 29.0 Intake & Output: Intake and Output for Last 24 Hours 07/15/22 07/16/22 07/17/22 23:59 23:59 23:59 Intake Total 353 / 603 1213.5 / 1213.5 Output Total 770 / 770 Balance 353 / 603 443.5 / 443.5 Lab / Micro Data Result Diagrams: 07/17/22 05:37 07/17/22 05:37 Labs: Laboratory Results - last 24 hr 07/17/22 05:37: WBC 10.4, RBC 4.04 L, Hgb 10.1 L, Hct 34.2 L, MCV 84.7, MCH 25.0 L, MCHC 29.5 L, RDW Std Deviation 46.5 H, RDW Coeff of Cathy 15.1 H, Plt Count 282, MPV 9.6 07/17/22 05:37: Sodium 140, Potassium 4.1, Chloride 108 H, Carbon Dioxide 25.0, Anion Gap 7, BUN 14, Creatinine 0.73, Estim Creat Clear Calc 140.85, Est GFR (MDRD) Af Amer 163, Est GFR (MDRD) Non-Af 135, BUN/Creatinine Ratio 19.1, Glucose 95, Calcium 8.2 L, Prealbumin 14.6 L Micro: Microbiology 07/16/22 Unknown Tissue Ulcer - Sacral Pressure Sore Gram Stain - Final 07/16/22 Unknown Tissue Ulcer - Sacral Pressure Sore Wound Culture - Preliminary Gram negative cynthia 07/16/22 Unknown Bone - Sacral Bone Gram Stain - Final 07/16/22 Unknown Bone - Sacral Bone Wound Culture - Preliminary Gram negative cynthia Radiography Diagnostic Testing: Radiology Impression Pelvis CT 07/17/22 11:09 IMPRESSION: Large soft tissue defect as described. No evidence of osteomyelitis of the sacrum or coccygeal elements. Small calculi at the base of the urinary bladder which is deformed. Cephalic migration of a deformed proximal left femur Electronically Signed: Audie Dozier MD at 13:42 EST , Physical Exam Const alert and no apparent distress HEENT normocephalic Lymph Lymphatic: no lymphedema noted Resp normal respiratory effort Effort and Inspection: able to speak in complete sentences Cardio regular rate GI soft to palpation and non-tender Extremity normal capillary refill Skin Wound Narrative: Sacral ulcer is stable with no active bleeding. Wound bed is beefy pink with bone exposure. Neuro Sensorium / Orientation: awake and alert Psych cooperative Assessment & Plan Assessment/Plan (1) Stage IV pressure ulcer of sacral region: (2) Decubitus ulcer of left buttock, stage 4: (3) Wheelchair dependence: (4) Hydrocephalus: (5) Spina bifida: (6) Methicillin resistant Staphylococcus epidermidis infection: (7) Other acute postprocedural pain: PLAN: Plan Patient is resting in bed. He states that he is having difficulty staying off of his ulcer in the hospital bed. He states he keeps rolling back on it. Preliminary operative cultures positive for Gram negative cynthia for both bone and tissue. He is currently on Vancomycin. Will place him on Levaquin upon discharge. Hgb 10.1 today, down for 12.0. Operative blood loss 350 ml and IV solution dilution. Will recheck CBC next week. Prealbumin 14.6. Encouraged increase in protein intake and supplementation with Von or Ensure. Wound care will be Dakins 0.25% moistened gauze covered by ABD/Super absorber daily and as needed after washing area with soap and water. There is concern that stool will get into the ulcer due to the proximity of the ulcer with the anal opening. Dr. Dougherty has been consulted for a colostomy evaluation to be done on an elective outpatient basis. Follow up at the wound Center next Friday to see me as previous scheduled. Discharge home today. Charges/Coding Procedures Integumentary 111xxx-113xx: [id number] Global Visit
[2022-07-17] MEDS: DAKIN'S SOL HALF STRENGTH (=0.25%) 1 APPLIC TOPICAL (16:58)
--- NOTE | 2022-07-17 16:59 | NURSING ---
Aware of Vital Signs that were done at 1415 today by Ronit Gaitan Hartington Copying Machine Repairer.
== END 2022-07-17 17:34 | disposition home health service (06) ==
LOC: SDC 07-17 09:35 → MS3 07-17 09:35
PROVIDERS: Anesthesiology; Admitting Provider Surgery; Referring Provider Surgery; Visit Provider Surgery
PROC: (CPT 15937; principal; 2022-07-16 14:00)
DX: L89.154 Pressure ulcer of sacral region, stage 4 (principal); Q05.9 Spina bifida, unspecified; G91.9 Hydrocephalus, unspecified; Z99.3 Dependence on wheelchair; Z86.14 Personal history of Methicillin resistant Staphylococcus aureus infection; Q74.8 Other specified congenital malformations of limb(s); Z79.899 Other long term (current) drug therapy; L40.9 Psoriasis, unspecified
CPT/HCPCS: 15937; 01120; J2405; J7120; 36415; 72192; 80048; 84134; 85027; 87015; 87070; 87075; 87077; 87102; 87116; 87186; 87205; 87206; 88305; 88307; 88311; 93005; 94668; 96365; 96366; 96372; 97802; 99221; 99252; J7050; A4216; G0378; G0463

== ENCOUNTER 2022-08-12 11:15 | Outpatient (RCR) | payer MEDICARE, MEDICAID, SELFPAY ==
[2022-07-17 00:36] VITALS: BP 133/88; PULSE 109; RESP 18; TEMP 37.2; BMI 23.7
[2022-07-24 12:58] VITALS: BP 111/72; PULSE 119; RESP 18; TEMP 36.6; BMI 23.7
--- NOTE | 2022-07-24 16:57 | PCM.WC.PN ---
History of Present Illness Date of Service: 07/24/22 Chief Complaint: Recurrent left sacral pressure sore, Stage IV. History of Wound: 26 year old man with a history of Spina bifida presented to the Wound Center with a recurrent left sacral pressure sore that started a couple of months ago according to the patient. He bumped his buttocks sometime during the summer and did not tell his mother until it was infected and draining. He initially went to [facility] in April,, and was hospitalized 3 days for IV antibiotics with Meropenem and Clindamycin. Also received a dose of Vancomycin in the ED and had a skin rash. CT showed a rim-enhancing perirectal fluid collection measuring 3.9 x 6.2 cm, compatible with an abscess. He was transferred to [facility] where an I&D was performed. He has a history of Spina bifida which he has had bilateral hip surgery for hip dysplasia at age 8 and another surgery on legs bilaterally to help him wear braces to stand, which he never has been able to do. He had a sacral muscle flap at age 14 at [facility] for an ulcer. Also has a history of hydrocephalous with a shunt. Surgery 07/16/22 - Excision recurrent left sacral pressure sore, Stage IV, with partial ostectomy for osteomyelitis. Operative tissue and bone cultures positive for Enterobacter cloacae complex and he is on Levaquin. Consult placed for diverting colostomy but it was recommended the patient be referred to a tertiary center due to his SHOE LASTER shunt and urinary conduit. Wound care - Dakins dressing changes. Wound culture from 06/03/22 positive for Bacillus sp. no anthracis and MRSE. He was started on Levaquin. Today denies fever. His appetite is ok. Progress of Wound: His mother states he has been having a lot of issues with loose stools and it getting into the ulcer. She is changing him and his dressing at least 4 times per day. The left sacral pressure sore, Stage IV with bone exposure has some fat necrosis present. Objective Data Objective Data Vital Signs: Vital Signs Temp Pulse Resp BP 97.8 F 119 H 18 111/72 07/24/22 12:58 07/24/22 12:58 07/24/22 12:58 07/24/22 12:58 Weight: 175 lb Body Mass Index (BMI) 23.7 Charges/Coding Procedures Integumentary 111xxx-113xx: [id number] Global Visit Debridement Note Debridement Note Wound debrided: #1 Left sacral area. Laterality: Left Wound Grade/Stage: IV Type of Debridement: Excisional debridement Anesthesia Used: 4% Lidocaine Solution Depth: Down to and including healthy tissue, in the subcutaneous layer, to muscle and to bone (bone is palpable but not debrided.) Percentage of wound debrided: 100 Instrument Used: 7mm curette Tissue Removed: subcutaneous tissue and muscle. Severity: Fat Layer Exposed (muscle is exposed. bone is palpable but not exposed.) Amount of bleeding with debridement: Mild Bleeding Controlled with: Pressure, Compression and gauze and Silver Nitrate Patient tolerated procedure: Patient tolerated procedure well Post-Debridement Measurements and Additional Note: Post-Debridement Measurements/Treatment WC - Nurse 1 - General Ulcer Assessment Start: 07/24/22 12:58 Freq: Status: Active Protocol: [email or web address] Activity Type Activity Date Activity User E-sign Co-sign Detail Recorded Client Recorded Date Recorded By Document 07/24/22 12:58 DL [id number] 07/24/22 13:09 DL 07/24/22 12:58 WC - Today's Visit Information Type of service Follow-up Visit (Physician/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 ) Arrival Mode Wheelchair Transfer Assistance None Patient Identification Verified (Name & Yes ) Patient Requires Transmission-Based No Precautions Height and Weight Body Mass Index (BMI) 23.7 BMI Classification Normal Vital Signs Temperature (97.8 F-99.1 F) 97.8 F Temperature Source Temporal Pulse Rate (60-100) 119 H Pulse Location Monitor Respiratory Rate (12-18) 18 Respiratory rate source Observation Blood Pressure (90/60-120/80) 111/72 Blood Pressure Mean (mm Hg) 85 Source Monitor History Since Last Visit- (Skip if this is Patient's initial visit) Have you changed medications since your No last visit? Any new allergies or adverse reactions No Had a fall/change in ADL's that may No increase risk of falls Signs or symptoms of abuse and/or No neglect since last visit Have you been in the hospital since your No last visit? Has dressing in place as prescribed Yes Has compression in place as prescribed N/A Has offloadiing in place as prescribed Yes Experienced any changes in pain level or No management Pain Scale: 0-10 Numeric Is Patient Pain Free? Yes WC - Nurse 1 - General Ulcer Measurement Start: 07/24/22 12:58 Freq: Status: Active Protocol: Activity Type Activity Date Activity User E-sign Co-sign Detail Recorded Client Recorded Date Recorded By Document 07/24/22 12:58 DL [id number] 07/24/22 13:09 DL 07/24/22 12:58 Wound Center Nurse 1 #1 left buttucks -Combined with other wound No -Current Size (cm) - Length 14 -Current Size (cm) - Width 5 -Current Size (cm) - Depth 7.5 -Total Square Cm 70 -Date of Last Picture (Recall this 07/24/22 field) -Photo Taken Yes -Epithelialization None Present -Tunneling No -Undermining/Tunneling No -Circular Undermining No -Exudate Amt Large -Exudate Type Serosanguineous -Wound Margin Distinct, Outline Attached -Granulation Amt Small (1-33%) -Granulation Quality Red -Slough/Fibrin Yes -Necrosis Amt Large (67-100%) -Necrotic Tissue Type Adherent Slough -Texture (Meliza-wound Skin Appearance) Assessed, Scarring -Moisture (Meliza-wound Skin Appearance) Assessed -Color (Meliza-wound Skin Appearance) Assessed -Temperature (Meliza-wound Skin No Abnormality Appearance) (Pt Warm) -Tenderness on Palpation (Meliza-wound No Skin Appearance) -Ulcer Cleansing Soap and Water -Foul Odor after Cleansing No -Anesthetic Used 4% Lidocaine Solution WC - Nurse 2 - General Ulcer CM Notes Start: 07/24/22 12:58 Freq: Status: Active Protocol: Activity Type Activity Date Activity User E-sign Co-sign Detail Recorded Client Recorded Date Recorded By Document 07/24/22 13:29 DL [id number] 07/24/22 13:36 DL Edit Result 07/24/22 13:29 DL (1) [id number] 07/24/22 13:39 DL (1) #1 left buttucks - Bleeding Controlled with Pressure => Pressure,Silver => Nitrate 07/24/22 13:29 Wound Center Nurse 2 -Time 13:29 -Correct Patient Yes -Correct Side, Site, Position Yes -Correct Procedure Yes -Procedure Performed Yes -Type of Procedure Debridement -Clinical Debridement Muscle / Fascia -Tissue Removed Muscle,Fascia -Post Debridement (cm) - Length 17 -Post Debridement (cm) - Width 6.0 -Post Debridement (cm) - Depth 7.0 -Total Square (Post) (cm) 102.0 -Area of Debridement (cm) - Length 17 -Area of Debridement (cm) - Width 6.0 -Total Square (Area) (cm) 102.0 -Tunneling No -Undermining/Tunneling No -Circular Undermining No -Wound/Ulcer Outcome Not Healed -Ulcer Cleansing Rinsed/ Irrigated with Saline -Foul Odor after Cleansing No -Bioengineered Tissue No -Bleeding Controlled with Pressure,Silver Nitrate -Treatment Response Procedure Tolerated Well -Offloading No -Debridement - Muscle / Fascia, 1st Yes 20sq cm -Debridement, Muscle/Fascia, ea addt'l 5 20sq cm or part thereof Pain Scale: 0-10 Numeric Is Patient Pain Free? Yes - Nurse 3 - General Ulcer D/C NN Start: 07/24/22 12:58 Freq: Status: Active Protocol: Activity Type Activity Date Activity User E-sign Co-sign Detail Recorded Client Recorded Date Recorded By Document 07/24/22 13:51 DL [id number] 07/24/22 13:52 DL 07/24/22 13:51 Wound Care Center Nurse 3 #1 left buttucks -Ulcer Cleansing Soap and Water -Foul Odor after Cleansing No -Other Dressing dakins -Primary Dressing Covered/Secured with Dry Gauze, Secured with Tape Treatment Response Procedure Tolerated Well Pain Scale: 0-10 Numeric Is Patient Pain Free? Yes - Visit Discharge Discharge Condition Stable Ambulatory Status Wheelchair Transportation Private Auto Accompanied by mother Assessment/Plan Assessment/Plan (1) Stage IV pressure ulcer of sacral region: CODE(S): L89.154 - Pressure ulcer of sacral region, stage 4 (2) Spina bifida: CODE(S): Q05.9 - Spina bifida, unspecified (3) Wheelchair dependence: CODE(S): Z99.3 - Dependence on wheelchair (4) Hydrocephalus: CODE(S): G91.9 - Hydrocephalus, unspecified PLAN: Plan Patient evaluated at the wound center today. Wound care - Continue Dakins o.25% moistened gauze covered by ABD/super absorber dressing changes daily. Operative culture from 07/16/22 for both the tissue and the bone are positive for Enterobacter cloacae complex. He is being treated with Levaquin. Prealbumin 14.6 from 07/17/22. Encourage increase protein intake with supplementation. He has a new Roho cushion for his wheelchair. He has an overlay mattress at home. He states a hospital low air loss bed won't fit into their trailer. Dr. Dougherty evaluated him while Latonya was in the hospital for a colostomy. Latonya at that time stated he is not interested in one at this time. Dr Dougherty stated in his note that if the patient changed his mind, then he should be referred to a tertiary center due to his shunt and urinary conduit - both coursing through the right abdomen, he should be evaluated at at facility where there is urologic expertise with her anatomy. Patient's mother states that he definitely needs a colostomy, he is incontinent of stool and she is having a difficult time keeping him clean. She states there is stool getting into the wound and she is changing him at least 4 times per day. Will refer him to [facility] for further evaluation. Follow up one week.
[2022-07-29 14:38] VITALS: BP 130/67; RESP 16; TEMP 37.2; BMI 23.7
--- NOTE | 2022-07-29 15:22 | PCM.WC.PN ---
History of Present Illness Date of Service: 07/29/22 Chief Complaint: Recurrent left sacral pressure sore, Stage IV. History of Wound: 26 year old man with a history of Spina bifida presented to the Wound Center with a recurrent left sacral pressure sore that started a couple of months ago according to the patient. He bumped his buttocks sometime during the summer and did not tell his mother until it was infected and draining. He initially went to [facility] in April,, and was hospitalized 3 days for IV antibiotics with Meropenem and Clindamycin. Also received a dose of Vancomycin in the ED and had a skin rash. CT showed a rim-enhancing perirectal fluid collection measuring 3.9 x 6.2 cm, compatible with an abscess. He was transferred to [facility] where an I&D was performed. He has a history of Spina bifida which he has had bilateral hip surgery for hip dysplasia at age 8 and another surgery on legs bilaterally to help him wear braces to stand, which he never has been able to do. He had a sacral muscle flap at age 14 at [facility] for an ulcer. Also has a history of hydrocephalous with a shunt. Surgery 07/16/22 - Excision recurrent left sacral pressure sore, Stage IV, with partial ostectomy for osteomyelitis. Operative tissue and bone cultures positive for Enterobacter cloacae complex and he is on Levaquin. 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 Wound care - Dakins dressing changes. Wound culture from 06/03/22 positive for Bacillus sp. no anthracis and MRSE. He was started on Levaquin. Today denies fever. His appetite is ok. Progress of Wound: The left sacral pressure sore, Stage IV with bone exposure looks better this week. He has not been having as much diarrhea and his mother states the stool has not been as much as an issue this week. The base of the ulcer is beefy pink, there is not as much fat necrosis. Objective Data Objective Data Vital Signs: Vital Signs Temp Pulse Resp BP O2 Del Method 98.9 F 119 H 16 130/67 H Room Air 07/29/22 14:38 07/24/22 12:58 07/29/22 14:38 07/29/22 14:38 07/29/22 14:38 Oxygen Delivery Method Room Air Weight: 175 lb Body Mass Index (BMI) 23.7 Charges/Coding Procedures Integumentary 111xxx-113xx: 98197 Global Visit Debridement Note Debridement Note Wound debrided: #1 Left sacral area. Laterality: Left Wound Grade/Stage: Stage IV Type of Debridement: Excisional debridement Anesthesia Used: 4% Lidocaine Solution and 5% Lidocaine Gel Depth: Down to and including healthy tissue, in the subcutaneous layer, to muscle and to bone (bone is palpable but not debrided.) Percentage of wound debrided: 100 Instrument Used: 7mm curette Tissue Removed: subcutaneous tissue and muscle. Severity: Fat Layer Exposed (muscle is exposed. bone is palpable but not exposed.) Amount of bleeding with debridement: Mild Bleeding Controlled with: Pressure, Compression and gauze and Silver Nitrate Patient tolerated procedure: Patient tolerated procedure well Post-Debridement Measurements and Additional Note: Post-Debridement Measurements/Treatment WC - Nurse 1 - General Ulcer Assessment Start: 07/24/22 12:58 Freq: Status: Active Protocol: ANDREW Activity Type Activity Date Activity User E-sign Co-sign Detail Recorded Client Recorded Date Recorded By Document 07/24/22 12:58 DL [id number] 07/24/22 13:09 DL Document 07/29/22 14:38 [facility] [id number] 07/29/22 14:45 [facility] 07/24/22 07/29/22 12:58 14:38 - Today's Visit Information Type of service Follow-up Visit Follow-up Visit (Physician/RESEARCH PSYCHOLOGIST (Physician/RESEARCH PSYCHOLOGIST ) ) Arrival Mode Wheelchair Wheelchair Transfer Assistance None Other Transfer Assist (Other) 1 Accompanied by MOM Patient Identification Verified (Name & Yes Yes ) Patient Requires Transmission-Based No No Precautions Height and Weight Body Mass Index (BMI) 23.7 23.7 BMI Classification Normal Normal Vital Signs Temperature (97.8 F-99.1 F) 97.8 F 98.9 F Temperature Source Temporal Temporal Pulse Rate (60-100) 119 H Pulse Location Monitor Respiratory Rate (12-18) 18 16 Respiratory rate source Observation Observation Oxygen Delivery Method Room Air Blood Pressure (90/60-120/80) 111/72 130/67 H Blood Pressure Mean (mm Hg) 85 88 Source Monitor Monitor Position Sitting Blood Pressure Location Left Arm History Since Last Visit- (Skip if this is Patient's initial visit) Have you changed medications since your No No last visit? Any new allergies or adverse reactions No Had a fall/change in ADL's that may No No increase risk of falls Signs or symptoms of abuse and/or No No neglect since last visit Have you been in the hospital since your No No last visit? Has dressing in place as prescribed Yes Yes Has compression in place as prescribed N/A N/A Has offloadiing in place as prescribed Yes N/A Experienced any changes in pain level or No No management Left Footwear Regular Shoe Right Footwear Regular Shoe Pain Scale: 0-10 Numeric Is Patient Pain Free? Yes Yes WC - Nurse 1 - General Ulcer Measurement Start: 07/24/22 12:58 Freq: Status: Active Protocol: Activity Type Activity Date Activity User E-sign Co-sign Detail Recorded Client Recorded Date Recorded By Document 07/24/22 12:58 DL [id number] 07/24/22 13:09 DL Document 07/29/22 14:38 [facility] [id number] 07/29/22 14:45 BMF 07/24/22 07/29/22 12:58 14:38 Wound Center Nurse 1 #1 left buttucks -Combined with other wound No No -Current Size (cm) - Length 14 14.5 -Current Size (cm) - Width 5 5 -Current Size (cm) - Depth 7.5 7.6 -Total Square Cm 70 72.5 -Date of Last Picture (Recall this 07/24/22 07/29/22 field) -Photo Taken Yes Yes -Epithelialization None Present None Present -Tunneling No -Undermining/Tunneling No Yes -Undermining/Tunneling Starts (O'clock 1 ) -Undermining/Tunneling Ends (O'clock) 1 -Maximum Distance (cm) 4.1 -Undermining/Tunneling Starts #2 (O' 9 clock) -Undermining/Tunneling Ends #2 (O' 9 clock) -Maximum Distance #2 (cm) 5.6 -Circular Undermining No No -Exudate Amt Large Large -Exudate Type Serosanguineous Yellow/Green -Wound Margin Distinct, Distinct, Outline Outline Attached Attached -Granulation Amt Small (1-33%) Medium (34-66%) -Granulation Quality Red Red -Slough/Fibrin Yes Yes -Necrosis Amt Large (67-100%) Medium (34-66%) -Necrotic Tissue Type Adherent Slough Adherent Slough -Texture (Meliza-wound Skin Appearance) Assessed, Assessed, Scarring Scarring -Moisture (Meliza-wound Skin Appearance) Assessed Assessed -Color (Meliza-wound Skin Appearance) Assessed Assessed -Temperature (Meliza-wound Skin No Abnormality No Abnormality Appearance) (Pt Warm) (Pt Warm) -Tenderness on Palpation (Meliza-wound No No Skin Appearance) -Ulcer Cleansing Soap and Water Soap and Water -Foul Odor after Cleansing No No -Anesthetic Used 4% Lidocaine 4% Lidocaine Solution Solution WC - Nurse 2 - General Ulcer CM Notes Start: 07/24/22 12:58 Freq: Status: Active Protocol: Activity Type Activity Date Activity User E-sign Co-sign Detail Recorded Client Recorded Date Recorded By Document 07/24/22 13:29 DL [id number] 07/24/22 13:36 DL Edit Result 07/24/22 13:29 DL (1) [id number] 07/24/22 13:39 DL Document 07/29/22 15:10 JF [id number] 07/29/22 15:15 JF (1) #1 left buttucks - Bleeding Controlled with Pressure => Pressure,Silver => Nitrate 07/24/22 07/29/22 13:29 15:10 Wound Center Nurse 2 #1 left buttucks -Time 13:29 15:11 -Correct Patient Yes Yes -Correct Side, Site, Position Yes Yes -Correct Procedure Yes Yes -Procedure Performed Yes Yes -Type of Procedure Debridement Debridement -Clinical Debridement Muscle / Fascia Muscle / Fascia -Tissue Removed Muscle,Fascia Muscle,Fascia -Post Debridement (cm) - Length 17 17 -Post Debridement (cm) - Width 6.0 8 -Post Debridement (cm) - Depth 7.0 7.4 -Total Square (Post) (cm) 102.0 136 -Area of Debridement (cm) - Length 17 17 -Area of Debridement (cm) - Width 6.0 8 -Total Square (Area) (cm) 102.0 136 -Tunneling No No -Undermining/Tunneling No No -Circular Undermining No No -Wound/Ulcer Outcome Not Healed Not Healed -Ulcer Cleansing Rinsed/ Rinsed/ Irrigated with Irrigated with Saline Saline -Foul Odor after Cleansing No No -Bioengineered Tissue No No -Bleeding Controlled with Pressure,Silver Pressure Nitrate -Treatment Response Procedure Procedure Tolerated Well Tolerated Well -Offloading No No -Pressure Reduction Wheelchair cushion -Debridement - Muscle / Fascia, 1st Yes Yes 20sq cm -Debridement, Muscle/Fascia, ea addt'l 5 6 20sq cm or part thereof Pain Scale: 0-10 Numeric Is Patient Pain Free? Yes Yes - Nurse 3 - General Ulcer D/C NN Start: 07/24/22 12:58 Freq: Status: Active Protocol: Activity Type Activity Date Activity User E-sign Co-sign Detail Recorded Client Recorded Date Recorded By Document 07/24/22 13:51 DL [id number] 07/24/22 13:52 DL Document 07/29/22 15:19 [id number] 07/29/22 15:20 JF 07/24/22 07/29/22 13:51 15:19 Wound Care Center Nurse 3 #1 left buttucks -Ulcer Cleansing Soap and Water Rinsed/ Irrigated with Saline -Foul Odor after Cleansing No No -Negative Pressure Wound Therapy N/A -Other Dressing dakins dakins and ABD -Primary Dressing Covered/Secured with Dry Gauze, Dry Gauze, Secured with Secured with Tape Tape Treatment Response Procedure Tolerated Well Pain Scale: 0-10 Numeric Is Patient Pain Free? Yes Yes - Visit Discharge Discharge Condition Stable Stable Ambulatory Status Wheelchair Wheelchair Transportation Private Auto Private Auto Accompanied by mother mom Medication Reconcilliation completed & Yes provided to patient/care provider Clinical Summary of Care Provided Yes Assessment/Plan Assessment/Plan (1) Stage IV pressure ulcer of sacral region: CODE(S): L89.154 - Pressure ulcer of sacral region, stage 4 (2) Spina bifida: CODE(S): Q05.9 - Spina bifida, unspecified (3) Wheelchair dependence: CODE(S): Z99.3 - Dependence on wheelchair (4) Hydrocephalus: CODE(S): G91.9 - Hydrocephalus, unspecified PLAN: Plan Patient evaluated at the wound center today. Wound care - Continue Dakins o.25% moistened gauze covered by ABD/super absorber dressing changes daily. Operative culture from 07/16/22 for both the tissue and the bone are positive for Enterobacter cloacae complex. He is being treated with Levaquin. Prealbumin 14.6 from 07/17/22. Encourage increase protein intake with supplementation. He has a new Roho cushion for his wheelchair. He has an overlay mattress at home. He states a hospital low air loss bed won't fit into their trailer. Dr. Dougherty evaluated him while Latonya was in the hospital for a colostomy. Latonya at that time stated he is not interested in one at this time. Dr Dougherty stated in his note that if the patient changed his mind, then he should be referred to a tertiary center due to his shunt and urinary conduit - both coursing through the right abdomen, he should be evaluated at at facility where there is urologic expertise with her anatomy. Patient's mother has made an appointment in early August at [facility] to be evaluated for colostomy placement. Follow up two weeks.
[2022-08-12 10:59] VITALS: BP 121/55; PULSE 96; RESP 20; TEMP 36.4; BMI 23.7
--- NOTE | 2022-08-12 14:32 | PCM.WC.PN ---
History of Present Illness Date of Service: 08/12/22 Chief Complaint: Recurrent left sacral pressure sore, Stage IV. History of Wound: 26 year old man with a history of Spina bifida presented to the Wound Center with a recurrent left sacral pressure sore that started a couple of months ago according to the patient. He bumped his buttocks sometime during the summer and did not tell his mother until it was infected and draining. He initially went to [facility] in April,, and was hospitalized 3 days for IV antibiotics with Meropenem and Clindamycin. Also received a dose of Vancomycin in the ED and had a skin rash. CT showed a rim-enhancing perirectal fluid collection measuring 3.9 x 6.2 cm, compatible with an abscess. He was transferred to [facility] where an I&D was performed. He has a history of Spina bifida which he has had bilateral hip surgery for hip dysplasia at age 8 and another surgery on legs bilaterally to help him wear braces to stand, which he never has been able to do. He had a sacral muscle flap at age 14 at [facility] for an ulcer. Also has a history of hydrocephalous with a shunt. Surgery 07/16/22 - Excision recurrent left sacral pressure sore, Stage IV, with partial ostectomy for osteomyelitis. Operative tissue and bone cultures positive for Enterobacter cloacae complex and he is on Levaquin. 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 He has that appointment on 08/14/22. Wound care - Dakins dressing changes. Wound culture from 06/03/22 positive for Bacillus sp. no anthracis and MRSE. He was started on Levaquin. Today denies fever. His appetite is ok. Progress of Wound: The left sacral pressure sore, Stage IV with bone exposure looks better this week. Wound bed is beefy pink. Bone is still palpable. Objective Data Objective Data Vital Signs: Vital Signs Temp Pulse Resp BP O2 Del Method 97.5 F L 96 20 H 121/55 H Room Air 08/12/22 10:59 08/12/22 10:59 08/12/22 10:59 08/12/22 10:59 07/29/22 14:38 Oxygen Delivery Method Room Air Weight: 175 lb Body Mass Index (BMI) 23.7 Charges/Coding Procedures Integumentary 111xxx-113xx: 04461 Global Visit Debridement Note Debridement Note Wound debrided: #1 Left sacral area. Laterality: Left Wound Grade/Stage: Stage IV Type of Debridement: Excisional debridement Anesthesia Used: 4% Lidocaine Solution and 5% Lidocaine Gel Depth: Down to and including healthy tissue, in the subcutaneous layer, to muscle and to bone (bone is palpable but not debrided.) Percentage of wound debrided: 100 Instrument Used: 7mm curette Tissue Removed: subcutaneous tissue and muscle. Severity: Fat Layer Exposed (muscle is exposed. bone is palpable but not exposed.) Amount of bleeding with debridement: Mild Bleeding Controlled with: Pressure, Compression and gauze and Silver Nitrate Patient tolerated procedure: Patient tolerated procedure well Post-Debridement Measurements and Additional Note: Post-Debridement Measurements/Treatment - Nurse 1 - General Ulcer Assessment Start: 07/24/22 12:58 Freq: Status: Active Protocol: ANDREW Activity Type Activity Date Activity User E-sign Co-sign Detail Recorded Client Recorded Date Recorded By Document 07/24/22 12:58 [id number] 07/24/22 13:09 Document 07/29/22 14:38 [facility] [id number] 07/29/22 14:45 [facility] Document 08/12/22 10:59 DL [id number] 08/12/22 11:01 DL 07/24/22 07/29/22 08/12/22 12:58 14:38 10:59 - Today's Visit Information Type of service Follow-up Visit Follow-up Visit Follow-up Visit (Physician/TELESALES PROFESSIONAL (Physician/TELESALES PROFESSIONAL (Physician/TELESALES PROFESSIONAL ) ) ) Arrival Mode Wheelchair Wheelchair Wheelchair Transfer Assistance None Other None Transfer Assist (Other) 1 Accompanied by MOM Patient Identification Verified (Name & Yes Yes Yes ) Patient Requires Transmission-Based No No No Precautions Height and Weight Body Mass Index (BMI) 23.7 23.7 23.7 BMI Classification Normal Normal Normal Vital Signs Temperature (97.8 F-99.1 F) 97.8 F 98.9 F 97.5 F L Temperature Source Temporal Temporal Temporal Pulse Rate (60-100) 119 H 96 Pulse Location Monitor Monitor Respiratory Rate (12-18) 18 16 20 H Respiratory rate source Observation Observation Oxygen Delivery Method Room Air Blood Pressure (90/60-120/80) 111/72 130/67 H 121/55 H Blood Pressure Mean (mm Hg) 85 88 77 Source Monitor Monitor Monitor Position Sitting Blood Pressure Location Left Arm History Since Last Visit- (Skip if this is Patient's initial visit) Have you changed medications since your No No No last visit? Any new allergies or adverse reactions No No Had a fall/change in ADL's that may No No No increase risk of falls Signs or symptoms of abuse and/or No No No neglect since last visit Have you been in the hospital since your No No No last visit? Has dressing in place as prescribed Yes Yes Yes Has compression in place as prescribed N/A N/A N/A Has offloadiing in place as prescribed Yes N/A Experienced any changes in pain level or No No No management Left Footwear Regular Shoe Right Footwear Regular Shoe Pain Scale: 0-10 Numeric Is Patient Pain Free? Yes Yes Yes WC - Nurse 1 - General Ulcer Measurement Start: 07/24/22 12:58 Freq: Status: Active Protocol: Activity Type Activity Date Activity User E-sign Co-sign Detail Recorded Client Recorded Date Recorded By Document 07/24/22 12:58 DL [id number] 07/24/22 13:09 DL Document 07/29/22 14:38 [facility] [id number] 07/29/22 14:45 BMF Document 08/12/22 11:01 DL [id number] 08/12/22 11:04 DL 07/24/22 07/29/22 08/12/22 12:58 14:38 11:01 Wound Center Nurse 1 #1 left buttucks -Combined with other wound No No -Current Size (cm) - Length 14 14.5 13 -Current Size (cm) - Width 5 5 2 -Current Size (cm) - Depth 7.5 7.6 5.6 -Total Square Cm 70 72.5 26 -Date of Last Picture (Recall this 07/24/22 07/29/22 field) -Photo Taken Yes Yes Yes -Epithelialization None Present None Present -Tunneling No -Tunneling Position (O'clock) 6 -Tunneling Distance (cm) 2 -Undermining/Tunneling No Yes -Undermining/Tunneling Starts (O'clock 1 ) -Undermining/Tunneling Ends (O'clock) 1 -Maximum Distance (cm) 4.1 -Undermining/Tunneling Starts #2 (O' 9 clock) -Undermining/Tunneling Ends #2 (O' 9 clock) -Maximum Distance #2 (cm) 5.6 -Circular Undermining No No -Exudate Amt Large Large Medium -Exudate Type Serosanguineous Yellow/Green Serosanguineous -Wound Margin Distinct, Distinct, Distinct, Outline Outline Outline Attached Attached Attached -Granulation Amt Small (1-33%) Medium (34-66%) Medium (34-66%) -Granulation Quality Red Red Red -Slough/Fibrin Yes Yes -Necrosis Amt Large (67-100%) Medium (34-66%) Medium (34-66%) -Necrotic Tissue Type Adherent Slough Adherent Slough Adherent Slough -Structure Exposed Bone -Texture (Meliza-wound Skin Appearance) Assessed, Assessed, Scarring Scarring Scarring -Moisture (Meliza-wound Skin Appearance) Assessed Assessed No Abnormality -Color (Meliza-wound Skin Appearance) Assessed Assessed No Abnormality -Temperature (Meliza-wound Skin No Abnormality No Abnormality No Abnormality Appearance) (Pt Warm) (Pt Warm) (Pt Warm) -Tenderness on Palpation (Meliza-wound No No No Skin Appearance) -Ulcer Cleansing Soap and Water Soap and Water Soap and Water -Foul Odor after Cleansing No No No -Anesthetic Used 4% Lidocaine 4% Lidocaine 4% Lidocaine Solution Solution Solution -Wound Comment(s) measurements per Brandon florence WC - Nurse 2 - General Ulcer CM Notes Start: 07/24/22 12:58 Freq: Status: Active Protocol: Activity Type Activity Date Activity User E-sign Co-sign Detail Recorded Client Recorded Date Recorded By Document 07/24/22 13:29 DL [id number] 07/24/22 13:36 DL Edit Result 07/24/22 13:29 DL (1) [id number] 07/24/22 13:39 DL Document 07/29/22 15:10 JF [id number] 07/29/22 15:15 JF Document 08/12/22 11:41 [id number] 08/12/22 11:43 JF (1) #1 left buttucks - Bleeding Controlled with Pressure => Pressure,Silver => Nitrate 07/24/22 07/29/22 08/12/22 13:29 15:10 11:41 Wound Center Nurse 2 #1 left buttucks -Time 13:29 15:11 11:41 -Correct Patient Yes Yes Yes -Correct Side, Site, Position Yes Yes Yes -Correct Procedure Yes Yes Yes -Procedure Performed Yes Yes Yes -Type of Procedure Debridement Debridement Debridement -Clinical Debridement Muscle / Fascia Muscle / Fascia Muscle / Fascia -Tissue Removed Muscle,Fascia Muscle,Fascia Muscle,Fascia -Post Debridement (cm) - Length 17 17 15.0 -Post Debridement (cm) - Width 6.0 8 7.0 -Post Debridement (cm) - Depth 7.0 7.4 5.5 -Total Square (Post) (cm) 102.0 136 105.00 -Area of Debridement (cm) - Length 17 17 15 -Area of Debridement (cm) - Width 6.0 8 7.0 -Total Square (Area) (cm) 102.0 136 105.0 -Tunneling No No No -Undermining/Tunneling No No No -Circular Undermining No No No -Wound/Ulcer Outcome Not Healed Not Healed Not Healed -Ulcer Cleansing Rinsed/ Rinsed/ Wound Cleanser Irrigated with Irrigated with Saline Saline -Foul Odor after Cleansing No No No -Bioengineered Tissue No No No -Bleeding Controlled with Pressure,Silver Pressure Pressure Nitrate -Treatment Response Procedure Procedure Procedure Tolerated Well Tolerated Well Tolerated Well -Offloading No No No -Pressure Reduction Wheelchair cushion -Debridement - Muscle / Fascia, 1st Yes Yes Yes 20sq cm -Debridement, Muscle/Fascia, ea addt'l 5 6 5 20sq cm or part thereof Pain Scale: 0-10 Numeric Is Patient Pain Free? Yes Yes Yes WC - Nurse 3 - General Ulcer D/C NN Start: 07/24/22 12:58 Freq: Status: Active Protocol: Activity Type Activity Date Activity User E-sign Co-sign Detail Recorded Client Recorded Date Recorded By Document 07/24/22 13:51 DL [id number] 07/24/22 13:52 DL Document 07/29/22 15:19 JF [id number] 07/29/22 15:20 JF Document 08/12/22 11:58 NE [id number] 08/12/22 11:59 AK 07/24/22 07/29/22 08/12/22 13:51 15:19 11:58 Wound Care Center Nurse 3 #1 left buttucks -Ulcer Cleansing Soap and Water Rinsed/ Rinsed/ Irrigated with Irrigated with Saline Saline -Foul Odor after Cleansing No No No -Negative Pressure Wound Therapy N/A N/A -Primary Dressing Applied Hysept ($) -Other Dressing dakins dakins and ABD ABD -Primary Dressing Covered/Secured with Dry Gauze, Dry Gauze, Dry Gauze, Secured with Secured with Secured with Tape Tape Tape Treatment Response Procedure Tolerated Well Pain Scale: 0-10 Numeric Is Patient Pain Free? Yes Yes Yes WC - Visit Discharge Discharge Condition Stable Stable Stable Ambulatory Status Wheelchair Wheelchair Wheelchair Transportation Private Auto Private Auto Private Auto Accompanied by mother mom Medication Reconcilliation completed & Yes Yes provided to patient/care provider Clinical Summary of Care Provided Yes Yes Assessment/Plan Assessment/Plan (1) Stage IV pressure ulcer of sacral region: CODE(S): L89.154 - Pressure ulcer of sacral region, stage 4 (2) Spina bifida: CODE(S): Q05.9 - Spina bifida, unspecified (3) Wheelchair dependence: CODE(S): Z99.3 - Dependence on wheelchair (4) Hydrocephalus: CODE(S): G91.9 - Hydrocephalus, unspecified PLAN: Plan Patient evaluated at the wound center today. Wound care - Continue Dakins 0.25% moistened gauze covered by ABD/super absorber dressing changes daily. Operative culture from 07/16/22 for both the tissue and the bone are positive for Enterobacter cloacae complex. He is being treated with Levaquin. Prealbumin 14.6 from 07/17/22. Encourage increase protein intake with supplementation. He has a new Roho cushion for his wheelchair. He has a memory foam mattress at home. He states a hospital low air loss bed won't fit into their trailer. His mother states that he never has any red areas or pressure areas when he is in bed. Dr. Dougherty evaluated him while Latonya was in the hospital for a colostomy. Latonya at that time stated he is not interested in one at this time. Dr Dougherty stated in his note that if the patient changed his mind, then he should be referred to a tertiary center due to his shunt and urinary conduit - both coursing through the right abdomen, he should be evaluated at at facility where there is urologic expertise with her anatomy. Patient's mother has made an appointment on Friday08/14/22 at [facility] to be evaluated for colostomy placement. Follow up two weeks.
== END 2022-08-13 23:59 | disposition home or self-care (01) ==
LOC: WC 11:15
PROVIDERS: Visit Provider Nurse Practitioner Family
DX: L89.154 Pressure ulcer of sacral region, stage 4 (principal); Q05.9 Spina bifida, unspecified; Z99.3 Dependence on wheelchair
CPT/HCPCS: 11043; 11046

== ENCOUNTER 2022-10-07 14:45 | Outpatient (RCR) | payer MEDICARE, MEDICAID, SELFPAY ==
[2022-08-14 00:24] VITALS: BP 121/55; PULSE 96; RESP 20; TEMP 36.4; BMI 23.7
[2022-09-16 15:07] VITALS: BP 123/76; PULSE 107; RESP 20; TEMP 37.1; BMI 23.7
--- NOTE | 2022-09-16 16:19 | PCM.WC.PN ---
History of Present Illness Date of Service: 09/16/22 Chief Complaint: Recurrent left sacral pressure sore, Stage IV. History of Wound: 26 year old man with a history of Spina bifida presented to the Wound Center with a recurrent left sacral pressure sore that started a couple of months ago according to the patient. He bumped his buttocks sometime during the summer and did not tell his mother until it was infected and draining. He initially went to [facility] in April,, and was hospitalized 3 days for IV antibiotics with Meropenem and Clindamycin. Also received a dose of Vancomycin in the ED and had a skin rash. CT showed a rim-enhancing perirectal fluid collection measuring 3.9 x 6.2 cm, compatible with an abscess. He was transferred to [facility] where an I&D was performed. He has a history of Spina bifida which he has had bilateral hip surgery for hip dysplasia at age 8 and another surgery on legs bilaterally to help him wear braces to stand, which he never has been able to do. He had a sacral muscle flap at age 14 at [facility] for an ulcer. Also has a history of hydrocephalous with a shunt. Surgery 07/16/22 - Excision recurrent left sacral pressure sore, Stage IV, with partial ostectomy for osteomyelitis. Operative tissue and bone cultures positive for Enterobacter cloacae complex and he is on Levaquin. 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 Wound care - Dakins dressing changes. Wound culture from 06/03/22 positive for Bacillus sp. no anthracis and MRSE. He was started on Levaquin. Today denies fever. His appetite is ok. Progress of Wound: The left sacral pressure sore, Stage IV is pink. There is no bone exposure. Objective Data Objective Data Vital Signs: Vital Signs Temp Pulse Resp BP 98.7 F 107 H 20 H 123/76 H 09/16/22 15:07 09/16/22 15:07 09/16/22 15:07 09/16/22 15:07 Weight: 175 lb Body Mass Index (BMI) 23.7 Charges/Coding Procedures Integumentary 111xxx-113xx: 31386 Global Visit Debridement Note Debridement Note Wound debrided: #1 Left sacral area. Laterality: Left Wound Grade/Stage: Stage IV Type of Debridement: Excisional debridement Anesthesia Used: 4% Lidocaine Solution and 5% Lidocaine Gel Depth: Down to and including healthy tissue, in the subcutaneous layer and to muscle Percentage of wound debrided: 100 Instrument Used: 7mm curette Tissue Removed: subcutaneous tissue and muscle. Severity: Fat Layer Exposed (muscle is exposed. bone is palpable but not exposed.) Amount of bleeding with debridement: Mild Bleeding Controlled with: Pressure and Compression and gauze Patient tolerated procedure: Patient tolerated procedure well Post-Debridement Measurements and Additional Note: Post-Debridement Measurements/Treatment - Nurse 1 - General Ulcer Assessment Start: 09/16/22 15:07 Freq: Status: Active Protocol: ANDREW Activity Type Activity Date Activity User E-sign Co-sign Detail Recorded Client Recorded Date Recorded By Document 09/16/22 15:07 DL [id number] 09/16/22 15:14 DL 09/16/22 15:07 WC - Today's Visit Information Type of service Follow-up Visit (Physician/SENIOR FRONT END WEB DEVELOPER ) Arrival Mode Wheelchair Transfer Assist (Other) x1 Patient Identification Verified (Name & Yes ) Patient Requires Transmission-Based No Precautions Height and Weight Body Mass Index (BMI) 23.7 BMI Classification Normal Vital Signs Temperature (97.8 F-99.1 F) 98.7 F Temperature Source Temporal Pulse Rate (60-100) 107 H Pulse Location Monitor Respiratory Rate (12-18) 20 H Respiratory rate source Observation Blood Pressure (90/60-120/80) 123/76 H Blood Pressure Mean (mm Hg) 91 Source Monitor History Since Last Visit- (Skip if this is Patient's initial visit) Have you changed medications since your No last visit? Any new allergies or adverse reactions No Had a fall/change in ADL's that may No increase risk of falls Signs or symptoms of abuse and/or No neglect since last visit Have you been in the hospital since your No last visit? Has dressing in place as prescribed Yes Has compression in place as prescribed N/A Has offloadiing in place as prescribed Yes Experienced any changes in pain level or No management Pain Scale: 0-10 Numeric Is Patient Pain Free? Yes Isaías Nurse 1 - General Ulcer Measurement Start: 09/16/22 15:07 Freq: Status: Active Protocol: Activity Type Activity Date Activity User E-sign Co-sign Detail Recorded Client Recorded Date Recorded By Document 09/16/22 15:07 DL [id number] 09/16/22 15:14 DL 09/16/22 15:07 Wound Center Nurse 1 #1 left buttucks -Current Size (cm) - Length 13.2 -Current Size (cm) - Width 8 -Current Size (cm) - Depth 5.5 -Total Square Cm 105.6 -Photo Taken Yes -Undermining/Tunneling Starts (O'clock 1 ) -Undermining/Tunneling Ends (O'clock) 5 -Maximum Distance (cm) 6.5 -Exudate Amt Large -Exudate Type Serosanguineous -Wound Margin Thickened & Rolled Under -Granulation Amt Large (67-100%) -Granulation Quality Red -Necrosis Amt Small (1-33%) -Necrotic Tissue Type Adherent Slough -Structure Exposed N/A -Texture (Meliza-wound Skin Appearance) Scarring -Moisture (Meliza-wound Skin Appearance) No Abnormality -Color (Meliza-wound Skin Appearance) No Abnormality -Temperature (Meliza-wound Skin No Abnormality Appearance) (Pt Warm) -Tenderness on Palpation (Meliza-wound No Skin Appearance) -Ulcer Cleansing Soap and Water -Foul Odor after Cleansing No -Anesthetic Used 4% Lidocaine Solution WC - Nurse 2 - General Ulcer CM Notes Start: 09/16/22 15:07 Freq: Status: Active Protocol: Activity Type Activity Date Activity User E-sign Co-sign Detail Recorded Client Recorded Date Recorded By Document 09/16/22 15:32 BILLY [id number] 09/16/22 15:35 BILLY 09/16/22 15:32 Wound Center Nurse 2 -Time 15:34 -Correct Patient Yes -Correct Side, Site, Position Yes -Correct Procedure Yes -Procedure Performed Yes -Type of Procedure Debridement -Clinical Debridement Muscle / Fascia -Tissue Removed Muscle,Fascia -Post Debridement (cm) - Length 13 -Post Debridement (cm) - Width 8 -Post Debridement (cm) - Depth 4.2 -Total Square (Post) (cm) 104 -Area of Debridement (cm) - Length 13 -Area of Debridement (cm) - Width 8 -Total Square (Area) (cm) 104 -Tunneling No -Undermining/Tunneling Yes -Undermining/Tunneling Starts (O'clock 1 ) -Undermining/Tunneling Ends (O'clock) 5 -Maximum Distance (cm) 7 -Circular Undermining No -Wound/Ulcer Outcome Not Healed -Ulcer Cleansing Rinsed/ Irrigated with Saline -Foul Odor after Cleansing No -Bioengineered Tissue No -Bleeding Controlled with Pressure -Treatment Response Procedure Tolerated Well -Offloading No -Debridement - Muscle / Fascia, 1st Yes 20sq cm -Debridement, Muscle/Fascia, ea addt'l 5 20sq cm or part thereof Pain Scale: 0-10 Numeric Is Patient Pain Free? Yes - Nurse 3 - General Ulcer D/C NN Start: 09/16/22 15:07 Freq: Status: Active Protocol: Activity Type Activity Date Activity User E-sign Co-sign Detail Recorded Client Recorded Date Recorded By Document 09/16/22 15:42 DL [id number] 09/16/22 15:44 DL 09/16/22 15:42 Wound Care Center Nurse 3 #1 left buttucks -Ulcer Cleansing Rinsed/ Irrigated with Saline -Foul Odor after Cleansing No -Primary Dressing Applied Hysept ($) -Other Dressing dakins -Primary Dressing Covered/Secured with Dry Gauze, Secured with Tape Treatment Response Procedure Tolerated Well Pain Scale: 0-10 Numeric Is Patient Pain Free? Yes - Visit Discharge Discharge Condition Stable Ambulatory Status Wheelchair Transportation Private Auto Assessment/Plan Assessment/Plan (1) Stage IV pressure ulcer of sacral region: CODE(S): L89.154 - Pressure ulcer of sacral region, stage 4 (2) Spina bifida: CODE(S): Q05.9 - Spina bifida, unspecified (3) Wheelchair dependence: CODE(S): Z99.3 - Dependence on wheelchair (4) Hydrocephalus: CODE(S): G91.9 - Hydrocephalus, unspecified PLAN: Plan Patient evaluated at the wound center today. Wound care - Continue Dakins 0.25% moistened gauze covered by ABD/super absorber dressing changes daily. Operative culture from 07/16/22 for both the tissue and the bone are positive for Enterobacter cloacae complex. He is being treated with Levaquin. Prealbumin 14.6 from 07/17/22. Encourage increase protein intake with supplementation. He has a new Roho cushion for his wheelchair. He has a memory foam mattress at home. He states a hospital low air loss bed won't fit into their trailer. His mother states that he never has any red areas or pressure areas when he is in bed. Dr. Dougherty evaluated him while Latonya was in the hospital for a colostomy. Latonya at that time stated he is not interested in one at this time. Dr Dougherty stated in his note that if the patient changed his mind, then he should be referred to a tertiary center due to his shunt and urinary conduit - both coursing through the right abdomen, he should be evaluated at at facility where there is urologic expertise with her anatomy. Patient had an appointment on 08/14/22 at [facility] to be evaluated for colostomy placement. He is scheduled for September 30, 2022. Follow up three weeks.
--- NOTE | 2022-09-23 13:47 | WC ---
Patient's mom Myrna called informing us that her son's catrachito-ulcer doesn't look good and probably needs an antibiotic. Called her back and she said there's redness between 11-1:00 with a bit of an odor and has had low grade temps. Notified Brianna RODRIGUEZ. Patient is currently on his way to [place] to get blood work done for his future surgery for his colostomy. She isn't able to bring him in [place] due to her work schedule. Brianna reviewed recent wound culture and called in Bactrim for 10 days. Will attempt to let Myrna know, made several attempts but her voicemail is not set-up.
[2022-10-07 14:58] VITALS: BP 133/85; PULSE 132; RESP 16; TEMP 36.6; BMI 23.7
--- NOTE | 2022-10-07 15:29 | PCM.WC.PN ---
History of Present Illness Date of Service: 10/07/22 Chief Complaint: Recurrent left sacral pressure sore, Stage IV. History of Wound: 26 year old man with a history of Spina bifida presented to the Wound Center with a recurrent left sacral pressure sore that started a couple of months ago according to the patient. He bumped his buttocks sometime during the summer and did not tell his mother until it was infected and draining. He initially went to [facility] in April,, and was hospitalized 3 days for IV antibiotics with Meropenem and Clindamycin. Also received a dose of Vancomycin in the ED and had a skin rash. CT showed a rim-enhancing perirectal fluid collection measuring 3.9 x 6.2 cm, compatible with an abscess. He was transferred to [facility] where an I&D was performed. He has a history of Spina bifida which he has had bilateral hip surgery for hip dysplasia at age 8 and another surgery on legs bilaterally to help him wear braces to stand, which he never has been able to do. He had a sacral muscle flap at age 14 at [facility] for an ulcer. Also has a history of hydrocephalous with a shunt. Surgery 07/16/22 - Excision recurrent left sacral pressure sore, Stage IV, with partial ostectomy for osteomyelitis. Operative tissue and bone cultures positive for Enterobacter cloacae complex and he is on Levaquin. 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 Wound care - Dakins dressing changes. Wound culture from 06/03/22 positive for Bacillus sp. no anthracis and MRSE. He was started on Levaquin. Today denies fever. His appetite is ok. Progress of Wound: The left sacral pressure sore, Stage IV is pink into the muscle. There is no bone exposure. He obtained a colostomy a couple weeks ago at [facility], he is not having any issues with that. Objective Data Objective Data Vital Signs: Vital Signs Temp Pulse Resp BP O2 Del Method 97.8 F 132 H 16 133/85 H Room Air 10/07/22 14:58 10/07/22 14:58 10/07/22 14:58 10/07/22 14:58 10/07/22 14:58 Oxygen Delivery Method Room Air Weight: 175 lb Body Mass Index (BMI) 23.7 Charges/Coding Procedures Integumentary 111xxx-113xx: 29218 Camelia musc/fascia 20 sq cm/< Add On Codes: 07447 Camelia musc/fascia add-on (x4) Debridement Note Debridement Note Wound debrided: #1 Left sacral area. Laterality: Left Wound Grade/Stage: Stage IV Type of Debridement: Excisional debridement Anesthesia Used: 4% Lidocaine Solution and 5% Lidocaine Gel Depth: Down to and including healthy tissue, in the subcutaneous layer and to muscle Percentage of wound debrided: 100 Instrument Used: 7mm curette Tissue Removed: subcutaneous tissue and muscle. Severity: Fat Layer Exposed (muscle is exposed. bone is palpable but not exposed.) Amount of bleeding with debridement: Mild Bleeding Controlled with: Pressure and Compression and gauze Patient tolerated procedure: Patient tolerated procedure well Post-Debridement Measurements and Additional Note: Post-Debridement Measurements/Treatment - Nurse 1 - General Ulcer Assessment Start: 09/16/22 15:07 Freq: Status: Active Protocol: ANDREW Activity Type Activity Date Activity User E-sign Co-sign Detail Recorded Client Recorded Date Recorded By Document 09/16/22 15:07 DL [id number] 09/16/22 15:14 DL Document 10/07/22 14:58 [facility] [id number] 10/07/22 15:01 BM 09/16/22 10/07/22 15:07 14:58 - Today's Visit Information Type of service Follow-up Visit Follow-up Visit (Physician/RENTAL SALES REPRESENTATIVE (Physician/RENTAL SALES REPRESENTATIVE ) ) Arrival Mode Wheelchair Wheelchair Transfer Assistance Other Transfer Assist (Other) x1 2 Accompanied by MOM Patient Identification Verified (Name & Yes Yes ) Patient Requires Transmission-Based No No Precautions Height and Weight Body Mass Index (BMI) 23.7 23.7 BMI Classification Normal Normal Vital Signs Temperature (97.8 F-99.1 F) 98.7 F 97.8 F Temperature Source Temporal Temporal Pulse Rate (60-100) 107 H 132 H Pulse Location Monitor Apical Respiratory Rate (12-18) 20 H 16 Respiratory rate source Observation Observation Oxygen Delivery Method Room Air Blood Pressure (90/60-120/80) 123/76 H 133/85 H Blood Pressure Mean (mm Hg) 91 101 Source Monitor Monitor Position Sitting Blood Pressure Location Right Arm History Since Last Visit- (Skip if this is Patient's initial visit) Have you changed medications since your No No last visit? Any new allergies or adverse reactions No No Had a fall/change in ADL's that may No No increase risk of falls Signs or symptoms of abuse and/or No No neglect since last visit Have you been in the hospital since your No Yes last visit? Has dressing in place as prescribed Yes Yes Has compression in place as prescribed N/A N/A Has offloadiing in place as prescribed Yes N/A Experienced any changes in pain level or No No management Left Footwear Regular Shoe Right Footwear Regular Shoe Pain Scale: 0-10 Numeric Is Patient Pain Free? Yes Yes WC - Nurse 1 - General Ulcer Measurement Start: 09/16/22 15:07 Freq: Status: Active Protocol: Activity Type Activity Date Activity User E-sign Co-sign Detail Recorded Client Recorded Date Recorded By Document 09/16/22 15:07 DL [id number] 09/16/22 15:14 DL Document 10/07/22 14:58 [facility] [id number] 10/07/22 15:01 BMF 09/16/22 10/07/22 15:07 14:58 Wound Center Nurse 1 #1 left buttucks -Combined with other wound No -Current Size (cm) - Length 13.2 12.2 -Current Size (cm) - Width 8 4.3 -Current Size (cm) - Depth 5.5 2.7 -Total Square Cm 105.6 52.46 -Date of Last Picture (Recall this 10/07/22 field) -Photo Taken Yes Yes -Epithelialization Small 1-33% -Tunneling No -Undermining/Tunneling Yes -Undermining/Tunneling Starts (O'clock 1 12 ) -Undermining/Tunneling Ends (O'clock) 5 5 -Maximum Distance (cm) 6.5 4 -Exudate Amt Large Large -Exudate Type Serosanguineous Serosanguineous -Wound Margin Thickened & Distinct, Rolled Under Outline Attached -Granulation Amt Large (67-100%) Large (67-100%) -Granulation Quality Red Red -Slough/Fibrin No -Necrosis Amt Small (1-33%) None Present (0 %) -Necrotic Tissue Type Adherent Slough -Structure Exposed N/A -Texture (Meliza-wound Skin Appearance) Scarring Assessed, Scarring -Moisture (Meliza-wound Skin Appearance) No Abnormality Assessed -Color (Meliza-wound Skin Appearance) No Abnormality Assessed -Temperature (Meliza-wound Skin No Abnormality No Abnormality Appearance) (Pt Warm) (Pt Warm) -Tenderness on Palpation (Meliza-wound No No Skin Appearance) -Ulcer Cleansing Soap and Water Soap and Water -Foul Odor after Cleansing No No -Anesthetic Used 4% Lidocaine 4% Lidocaine Solution Solution WC - Nurse 2 - General Ulcer CM Notes Start: 09/16/22 15:07 Freq: Status: Active Protocol: Activity Type Activity Date Activity User E-sign Co-sign Detail Recorded Client Recorded Date Recorded By Document 09/16/22 15:32 [id number] 09/16/22 15:35 Document 10/07/22 15:06 [id number] 10/07/22 15:10 09/16/22 10/07/22 15:32 15:06 Wound Center Nurse 2 #1 left buttucks -Time 15:34 15:07 -Correct Patient Yes Yes -Correct Side, Site, Position Yes Yes -Correct Procedure Yes Yes -Procedure Performed Yes Yes -Type of Procedure Debridement Debridement -Clinical Debridement Muscle / Fascia Muscle / Fascia -Tissue Removed Muscle,Fascia Muscle,Fascia -Post Debridement (cm) - Length 13 12.7 -Post Debridement (cm) - Width 8 7 -Post Debridement (cm) - Depth 4.2 4.0 -Total Square (Post) (cm) 104 88.9 -Area of Debridement (cm) - Length 13 12.7 -Area of Debridement (cm) - Width 8 7.0 -Total Square (Area) (cm) 104 88.90 -Tunneling No -Undermining/Tunneling Yes Yes -Undermining/Tunneling Starts (O'clock 1 1 ) -Undermining/Tunneling Ends (O'clock) 5 5 -Maximum Distance (cm) 7 4.9 -Circular Undermining No No -Wound/Ulcer Outcome Not Healed Not Healed -Ulcer Cleansing Rinsed/ Rinsed/ Irrigated with Irrigated with Saline Saline -Foul Odor after Cleansing No No -Bioengineered Tissue No No -Bleeding Controlled with Pressure Pressure -Treatment Response Procedure Procedure Tolerated Well Tolerated Well -Offloading No No -Pressure Reduction Wheelchair cushion -Debridement - Muscle / Fascia, 1st Yes Yes 20sq cm -Debridement, Muscle/Fascia, ea addt'l 5 4 20sq cm or part thereof Pain Scale: 0-10 Numeric Is Patient Pain Free? Yes Yes - Nurse 3 - General Ulcer D/C NN Start: 09/16/22 15:07 Freq: Status: Active Protocol: Activity Type Activity Date Activity User E-sign Co-sign Detail Recorded Client Recorded Date Recorded By Document 09/16/22 15:42 DL [id number] 09/16/22 15:44 DL Document 10/07/22 15:21 BM [id number] 10/07/22 15:21 BM 09/16/22 10/07/22 15:42 15:21 Wound Care Center Nurse 3 #1 left buttucks -Ulcer Cleansing Rinsed/ Rinsed/ Irrigated with Irrigated with Saline Saline -Foul Odor after Cleansing No No -Primary Dressing Applied Hysept ($) Hysept ($) -Other Dressing dakins DAKINS MOIST GAUZE -Primary Dressing Covered/Secured with Dry Gauze, Secured with Secured with Tape Tape -Other Covering ABDS Treatment Response Procedure Procedure Tolerated Well Tolerated Well Pain Scale: 0-10 Numeric Is Patient Pain Free? Yes Yes - Visit Discharge Discharge Condition Stable Stable Ambulatory Status Wheelchair Wheelchair Transportation Private Auto Private Auto Accompanied by MOM Assessment/Plan Assessment/Plan (1) Stage IV pressure ulcer of sacral region: CODE(S): L89.154 - Pressure ulcer of sacral region, stage 4 (2) Spina bifida: CODE(S): Q05.9 - Spina bifida, unspecified (3) Wheelchair dependence: CODE(S): Z99.3 - Dependence on wheelchair (4) Hydrocephalus: CODE(S): G91.9 - Hydrocephalus, unspecified PLAN: Plan Patient evaluated at the wound center today. Wound care - Will apply to his insurance for a wound VAC now that he has a colostomy. Continue Dakins 0.25% moistened gauze covered by ABD/super absorber dressing changes daily until he can come in to the wound center to show his mother how to place a wound VAC. She states that he had a wound VAC in the past. She is still declining home health services at this time. Operative culture from 07/16/22 for both the tissue and the bone are positive for Enterobacter cloacae complex. He completed the Levaquin. He has a new Roho cushion for his wheelchair. He has a memory foam mattress at home. He states a hospital low air loss bed won't fit into their trailer. His mother states that he never has any red areas or pressure areas when he is in bed. Dr. Dougherty evaluated him while Latonya was in the hospital for a colostomy. Latonya at that time stated he is not interested in one at this time. Dr Dougherty stated in his note that if the patient changed his mind, then he should be referred to a tertiary center due to his shunt and urinary conduit - both coursing through the right abdomen, he should be evaluated at at facility where there is urologic expertise with her anatomy. Patient had a colostomy placed at [facility] on September 30, 2022. Follow up one week.
== END 2022-10-13 23:59 | disposition home or self-care (01) ==
LOC: WC 14:45
PROVIDERS: Visit Provider Nurse Practitioner Family
DX: L89.154 Pressure ulcer of sacral region, stage 4 (principal); Q05.9 Spina bifida, unspecified; G91.9 Hydrocephalus, unspecified; R21 Rash and other nonspecific skin eruption; Z98.2 Presence of cerebrospinal fluid drainage device; Z99.3 Dependence on wheelchair
CPT/HCPCS: 11043; 11046

== ENCOUNTER 2022-11-04 14:45 | Outpatient (RCR) | payer MEDICARE, MEDICAID, SELFPAY ==
[2022-10-14 00:08] VITALS: BP 133/85; PULSE 132; RESP 16; TEMP 36.6; BMI 23.7
[2022-10-21 14:00] VITALS: BP 124/71; PULSE 115; RESP 20; TEMP 36.5; BMI 23.7
--- NOTE | 2022-10-21 15:39 | PN.PCM_ITS ---
History of Present Illness Date of Service: 10/21/22 Chief Complaint: Recurrent left sacral pressure sore, Stage IV. History of Wound: 26 year old man with a history of Spina bifida presented to the Wound Center with a recurrent left sacral pressure sore that started a couple of months ago according to the patient. He bumped his buttocks sometime during the summer and did not tell his mother until it was infected and draining. He initially went to [facility] in April,, and was hospitalized 3 days for IV antibiotics with Meropenem and Clindamycin. Also received a dose of Vancomycin in the ED and had a skin rash. CT showed a rim- enhancing perirectal fluid collection measuring 3.9 x 6.2 cm, compatible with an abscess. He was transferred to [facility] where an I&D was performed. He has a history of Spina bifida which he has had bilateral hip surgery for hip dysplasia at age 8 and another surgery on legs bilaterally to help him wear braces to stand, which he never has been able to do. He had a sacral muscle flap at age 14 at [facility] for an ulcer. Also has a history of hydrocephalous with a shunt. Surgery 07/16/22 - Excision recurrent left sacral pressure sore, Stage IV, with partial ostectomy for osteomyelitis. Operative tissue and bone cultures positive for Enterobacter cloacae complex and he is on Levaquin. Consult placed for diverting colostomy but it was recommended the patient be referred to a tertiary center due to his [employer] shunt and urinary conduit. Wound care - Wound VAC at 150 mmHg to be changed 3 times per week. Wound culture from 06/03/22 positive for Bacillus sp. no anthracis and MRSE. He was started on Levaquin. Today denies fever. His appetite is ok. Progress of Wound: The left sacral pressure sore, Stage IV is pink into the muscle. There is no bone exposure. He obtained a colostomy in September at [facility], he is not having any issues with that. Will start the wound VAC to help decrease the depth of his ulcer. He has finally received the wound VAC and his mother wants to be educated on how to change it. Objective Data Objective Data Vital Signs: Vital Signs Temp Pulse Resp BP 97.7 F L 115 H 20 H 124/71 H 10/21/22 14:00 10/21/22 14:00 10/21/22 14:00 10/21/22 14:00 Weight: 175 lb Body Mass Index (BMI) 23.7 Charges/Coding Procedures Integumentary 111xxx-113xx: 55744 Camelia musc/fascia 20 sq cm/< Add On Codes: 73040 Camelia musc/fascia add-on (x4) Debridement Note Debridement Note Wound debrided: #1 Left sacral area. Laterality: Left Wound Grade/Stage: Stage IV Type of Debridement: Excisional debridement Anesthesia Used: 4% Lidocaine Solution and 5% Lidocaine Gel Depth: Down to and including healthy tissue, in the subcutaneous layer and to muscle Percentage of wound debrided: 100 Instrument Used: 7mm curette Tissue Removed: subcutaneous tissue and muscle. Severity: Fat Layer Exposed (muscle is exposed. bone is palpable but not exposed.) Amount of bleeding with debridement: Mild Bleeding Controlled with: Pressure and Compression and gauze Patient tolerated procedure: Patient tolerated procedure well Post-Debridement Measurements and Additional Note: Post-Debridement Measurements/Treatment - Nurse 1 - General Ulcer Assessment Start: 10/21/22 14:00 Freq: Status: Active Protocol: LARISSA.LOWSARAHT Activity Type Activity Date Activity User E-sign Co-sign Detail Recorded Client Recorded Date Recorded By Document 10/21/22 14:00 DL [id number] 10/21/22 14:09 DL 10/21/22 14:00 WC - Today's Visit Information Type of service Follow-up Visit (Physician/SHIPPING SUPPORT ) Arrival Mode Wheelchair Transfer Assistance Manual Transfer Assist (Other) x1 Patient Identification Verified (Name & Yes ) Patient Requires Transmission-Based No Precautions Height and Weight Body Mass Index (BMI) 23.7 BMI Classification Normal Vital Signs Temperature (97.8 F-99.1 F) 97.7 F L Temperature Source Temporal Pulse Rate (60-100) 115 H Pulse Location Monitor Respiratory Rate (12-18) 20 H Respiratory rate source Observation Blood Pressure (90/60-120/80) 124/71 H Blood Pressure Mean (mm Hg) 88 Source Monitor History Since Last Visit- (Skip if this is Patient's initial visit) Have you changed medications since your No last visit? Any new allergies or adverse reactions No Had a fall/change in ADL's that may No increase risk of falls Signs or symptoms of abuse and/or No neglect since last visit Have you been in the hospital since your No last visit? Has dressing in place as prescribed Yes Has compression in place as prescribed N/A Has offloadiing in place as prescribed Yes Experienced any changes in pain level or No management Pain Scale: 0-10 Numeric Is Patient Pain Free? Yes - Nurse 1 - General Ulcer Measurement Start: 10/21/22 14:00 Freq: Status: Active Protocol: Activity Type Activity Date Activity User E-sign Co-sign Detail Recorded Client Recorded Date Recorded By Document 10/21/22 14:00 [id number] 10/21/22 14:09 DL 10/21/22 14:00 Wound Center Nurse 1 #1 left buttucks -Current Size (cm) - Length 1.5 -Current Size (cm) - Width 7 -Current Size (cm) - Depth 2.2 -Total Square Cm 10.5 -Photo Taken Yes -Undermining/Tunneling Starts (O'clock 1 ) -Undermining/Tunneling Ends (O'clock) 5 -Maximum Distance (cm) 7.3 -Exudate Amt Medium -Exudate Type Serosanguineous -Wound Margin Distinct, Outline Attached -Granulation Amt Large (67-100%) -Granulation Quality Red -Necrosis Amt None Present (0 %) -Structure Exposed N/A -Texture (Meliza-wound Skin Appearance) Scarring -Moisture (Meliza-wound Skin Appearance) No Abnormality -Color (Meliza-wound Skin Appearance) No Abnormality -Temperature (Meliza-wound Skin No Abnormality Appearance) (Pt Warm) -Tenderness on Palpation (Meliza-wound No Skin Appearance) -Ulcer Cleansing Soap and Water -Foul Odor after Cleansing No -Anesthetic Used 4% Lidocaine Solution - Nurse 2 - General Ulcer CM Notes Start: 10/21/22 14:00 Freq: Status: Active Protocol: Activity Type Activity Date Activity User E-sign Co-sign Detail Recorded Client Recorded Date Recorded By Document 10/21/22 14:29 [id number] 10/21/22 14:33 10/21/22 14:29 Wound Center Nurse 2 -Time 14:30 -Correct Patient Yes -Correct Side, Site, Position Yes -Correct Procedure Yes -Procedure Performed Yes -Type of Procedure Debridement -Clinical Debridement Muscle / Fascia -Tissue Removed Muscle,Fascia -Post Debridement (cm) - Length 11.8 -Post Debridement (cm) - Width 7.8 -Post Debridement (cm) - Depth 3.4 -Total Square (Post) (cm) 92.04 -Area of Debridement (cm) - Length 11.8 -Area of Debridement (cm) - Width 7.8 -Total Square (Area) (cm) 92.04 -Tunneling No -Undermining/Tunneling Yes -Undermining/Tunneling Starts (O'clock 1 ) -Undermining/Tunneling Ends (O'clock) 5 -Maximum Distance (cm) 6.3 -Circular Undermining No -Wound/Ulcer Outcome Not Healed -Ulcer Cleansing Rinsed/ Irrigated with Saline -Foul Odor after Cleansing No -Bioengineered Tissue No -Bleeding Controlled with Pressure -Treatment Response Procedure Tolerated Well -Offloading No -Pressure Reduction Wheelchair cushion -Debridement - Muscle / Fascia, 1st Yes 20sq cm -Debridement, Muscle/Fascia, ea addt'l 4 20sq cm or part thereof Pain Scale: 0-10 Numeric Is Patient Pain Free? Yes - Nurse 3 - General Ulcer D/C NN Start: 10/21/22 14:00 Freq: Status: Active Protocol: Activity Type Activity Date Activity User E-sign Co-sign Detail Recorded Client Recorded Date Recorded By Document 10/21/22 15:13 DL [id number] 10/21/22 15:14 DL 10/21/22 15:13 Wound Care Center Nurse 3 #1 left buttucks -Ulcer Cleansing Soap and Water -Foul Odor after Cleansing No -Negative Pressure Wound Therapy Continue -Setting (mmHg) 150 -Negative Pressure is Continuous -NPWT Application Charge NPWT & Debridement (nc ) Meliza-Wound Care Barrier Treatment Response Procedure Tolerated Well Pain Scale: 0-10 Numeric Is Patient Pain Free? Yes WC - Visit Discharge Discharge Condition Stable Ambulatory Status Wheelchair Transportation Private Auto Accompanied by mother Notes: Vac initiated today, mother instructed on application. Assessment/Plan Assessment/Plan (1) Stage IV pressure ulcer of sacral region: CODE(S): L89.154 - Pressure ulcer of sacral region, stage 4 (2) Spina bifida: CODE(S): Q05.9 - Spina bifida, unspecified (3) Wheelchair dependence: CODE(S): Z99.3 - Dependence on wheelchair (4) Hydrocephalus: CODE(S): G91.9 - Hydrocephalus, unspecified PLAN: Plan Patient evaluated at the wound center today. Wound care - Wound VAC at 150mm Hg three times per week, now that he has a colostomy. His mother will be educated on how to apply the wound VAC, she has applied them in the past. She is still declining home health services at this time. Hopefully with the wound vac, this will help decrease the depth of his ulcer. Operative culture from 07/16/22 for both the tissue and the bone are positive for Enterobacter cloacae complex. He completed the Levaquin. He has a new Roho cushion for his wheelchair. He has a memory foam mattress at home. He states a hospital low air loss bed won't fit into their trailer. His mother states that he never has any red areas or pressure areas when he is in bed. Patient had a colostomy placed at [facility] on September 30, 2022 and is doing well since then. Follow up two weeks.
--- NOTE | 2022-11-04 15:27 | PN.PCM_ITS ---
History of Present Illness Date of Service: 11/04/22 Chief Complaint: Recurrent left sacral pressure sore, Stage IV. History of Wound: 26 year old man with a history of Spina bifida presented to the Wound Center with a recurrent left sacral pressure sore that started a couple of months ago according to the patient. He bumped his buttocks sometime during the summer and did not tell his mother until it was infected and draining. He initially went to [facility] in April,, and was hospitalized 3 days for IV antibiotics with Meropenem and Clindamycin. Also received a dose of Vancomycin in the ED and had a skin rash. CT showed a rim- enhancing perirectal fluid collection measuring 3.9 x 6.2 cm, compatible with an abscess. He was transferred to [facility] where an I&D was performed. He has a history of Spina bifida which he has had bilateral hip surgery for hip dysplasia at age 8 and another surgery on legs bilaterally to help him wear braces to stand, which he never has been able to do. He had a sacral muscle flap at age 14 at [facility] for an ulcer. Also has a history of hydrocephalous with a shunt. Surgery 07/16/22 - Excision recurrent left sacral pressure sore, Stage IV, with partial ostectomy for osteomyelitis. Operative tissue and bone cultures positive for Enterobacter cloacae complex and he is on Levaquin. Consult placed for diverting colostomy but it was recommended the patient be referred to a tertiary center due to his [employer] shunt and urinary conduit. Wound care - Wound VAC at 150 mmHg to be changed 3 times per week. Wound culture from 06/03/22 positive for Bacillus sp. no anthracis and MRSE. He was started on Levaquin. Today denies fever. His appetite is ok. Progress of Wound: The left sacral pressure sore, Stage IV is pink into the muscle. There is no bone exposure. He obtained a colostomy in September at [facility], he is not having any issues with that. He is tolerating the wound VAC and his mom is doing a good job with his VAC dressing changes. She states he is having a lot of drainage and it requires changing the canister every other day. Objective Data Objective Data Vital Signs: Vital Signs Temp Pulse Resp BP 97.7 F L 115 H 20 H 124/71 H 10/21/22 14:00 10/21/22 14:00 10/21/22 14:00 10/21/22 14:00 Weight: 175 lb Body Mass Index (BMI) 23.7 Charges/Coding Procedures Integumentary 111xxx-113xx: 34913 Camelia musc/fascia 20 sq cm/< Add On Codes: 34428 Camelia musc/fascia add-on (x4) Debridement Note Debridement Note Wound debrided: #1 Left sacral area. Laterality: Left Wound Grade/Stage: Stage IV Type of Debridement: Excisional debridement Anesthesia Used: 4% Lidocaine Solution Depth: Down to and including healthy tissue, in the subcutaneous layer and to muscle Percentage of wound debrided: 100 Instrument Used: 7mm curette Tissue Removed: subcutaneous tissue into the muscle muscle. Severity: Fat Layer Exposed (muscle is exposed. bone is palpable but not exposed.) Amount of bleeding with debridement: Mild Bleeding Controlled with: Pressure and Compression and gauze Patient tolerated procedure: Patient tolerated procedure well Post-Debridement Measurements and Additional Note: Post-Debridement Measurements/Treatment - Nurse 1 - General Ulcer Assessment Start: 10/21/22 14:00 Freq: Status: Active Protocol: [email or web address].LOWEXT Activity Type Activity Date Activity User E-sign Co-sign Detail Recorded Client Recorded Date Recorded By Document 10/21/22 14:00 DL [id number] 10/21/22 14:09 DL 10/21/22 14:00 WC - Today's Visit Information Type of service Follow-up Visit (Physician/WELDING MACHINE OPERATOR RESISTANCE ) Arrival Mode Wheelchair Transfer Assistance Manual Transfer Assist (Other) x1 Patient Identification Verified (Name & Yes ) Patient Requires Transmission-Based No Precautions Height and Weight Body Mass Index (BMI) 23.7 BMI Classification Normal Vital Signs Temperature (97.8 F-99.1 F) 97.7 F L Temperature Source Temporal Pulse Rate (60-100) 115 H Pulse Location Monitor Respiratory Rate (12-18) 20 H Respiratory rate source Observation Blood Pressure (90/60-120/80) 124/71 H Blood Pressure Mean (mm Hg) 88 Source Monitor History Since Last Visit- (Skip if this is Patient's initial visit) Have you changed medications since your No last visit? Any new allergies or adverse reactions No Had a fall/change in ADL's that may No increase risk of falls Signs or symptoms of abuse and/or No neglect since last visit Have you been in the hospital since your No last visit? Has dressing in place as prescribed Yes Has compression in place as prescribed N/A Has offloadiing in place as prescribed Yes Experienced any changes in pain level or No management Pain Scale: 0-10 Numeric Is Patient Pain Free? Yes LARISSA - Nurse 1 - General Ulcer Measurement Start: 10/21/22 14:00 Freq: Status: Active Protocol: Activity Type Activity Date Activity User E-sign Co-sign Detail Recorded Client Recorded Date Recorded By Document 10/21/22 14:00 DL [id number] 10/21/22 14:09 DL 10/21/22 14:00 Wound Center Nurse 1 #1 left buttucks -Current Size (cm) - Length 1.5 -Current Size (cm) - Width 7 -Current Size (cm) - Depth 2.2 -Total Square Cm 10.5 -Photo Taken Yes -Undermining/Tunneling Starts (O'clock 1 ) -Undermining/Tunneling Ends (O'clock) 5 -Maximum Distance (cm) 7.3 -Exudate Amt Medium -Exudate Type Serosanguineous -Wound Margin Distinct, Outline Attached -Granulation Amt Large (67-100%) -Granulation Quality Red -Necrosis Amt None Present (0 %) -Structure Exposed N/A -Texture (Meliza-wound Skin Appearance) Scarring -Moisture (Meliza-wound Skin Appearance) No Abnormality -Color (Meliza-wound Skin Appearance) No Abnormality -Temperature (Meliza-wound Skin No Abnormality Appearance) (Pt Warm) -Tenderness on Palpation (Meliza-wound No Skin Appearance) -Ulcer Cleansing Soap and Water -Foul Odor after Cleansing No -Anesthetic Used 4% Lidocaine Solution LARISSA - Nurse 2 - General Ulcer CM Notes Start: 10/21/22 14:00 Freq: Status: Active Protocol: Activity Type Activity Date Activity User E-sign Co-sign Detail Recorded Client Recorded Date Recorded By Document 10/21/22 14:29 [id number] 10/21/22 14:33 Document 11/04/22 15:23 PL [id number] 11/04/22 15:25 PL 10/21/22 11/04/22 14:29 15:23 Wound Center Nurse 2 #1 left buttucks -Time 14:30 15:15 -Correct Patient Yes Yes -Correct Side, Site, Position Yes Yes -Correct Procedure Yes Yes -Procedure Performed Yes Yes -Type of Procedure Debridement Debridement -Clinical Debridement Muscle / Fascia Muscle / Fascia -Tissue Removed Muscle,Fascia Muscle -Post Debridement (cm) - Length 11.8 12.0 -Post Debridement (cm) - Width 7.8 7.0 -Post Debridement (cm) - Depth 3.4 3.3 -Total Square (Post) (cm) 92.04 84.00 -Area of Debridement (cm) - Length 11.8 12.0 -Area of Debridement (cm) - Width 7.8 7.0 -Total Square (Area) (cm) 92.04 84.00 -Tunneling No No -Undermining/Tunneling Yes Yes -Undermining/Tunneling Starts (O'clock 1 1 ) -Undermining/Tunneling Ends (O'clock) 5 5 -Maximum Distance (cm) 6.3 7.5 -Circular Undermining No No -Wound/Ulcer Outcome Not Healed Not Healed -Ulcer Cleansing Rinsed/ Rinsed/ Irrigated with Irrigated with Saline Saline -Foul Odor after Cleansing No No -Bioengineered Tissue No No -Bleeding Controlled with Pressure Pressure -Treatment Response Procedure Procedure Tolerated Well Tolerated Well -Offloading No -Pressure Reduction Wheelchair cushion -Debridement - Muscle / Fascia, 1st Yes Yes 20sq cm -Debridement, Muscle/Fascia, ea addt'l 4 4 20sq cm or part thereof Pain Scale: 0-10 Numeric Is Patient Pain Free? Yes Yes - Nurse 3 - General Ulcer D/C NN Start: 10/21/22 14:00 Freq: Status: Active Protocol: Activity Type Activity Date Activity User E-sign Co-sign Detail Recorded Client Recorded Date Recorded By Document 10/21/22 15:13 DL [id number] 10/21/22 15:14 DL 10/21/22 15:13 Wound Care Center Nurse 3 #1 left buttucks -Ulcer Cleansing Soap and Water -Foul Odor after Cleansing No -Negative Pressure Wound Therapy Continue -Setting (mmHg) 150 -Negative Pressure is Continuous -NPWT Application Charge NPWT & Debridement (nc ) Meliza-Wound Care Barrier Treatment Response Procedure Tolerated Well Pain Scale: 0-10 Numeric Is Patient Pain Free? Yes WC - Visit Discharge Discharge Condition Stable Ambulatory Status Wheelchair Transportation Private Auto Accompanied by mother Notes: Vac initiated today, mother instructed on application. Assessment/Plan Assessment/Plan (1) Stage IV pressure ulcer of sacral region: CODE(S): L89.154 - Pressure ulcer of sacral region, stage 4 (2) Spina bifida: CODE(S): Q05.9 - Spina bifida, unspecified (3) Wheelchair dependence: CODE(S): Z99.3 - Dependence on wheelchair (4) Hydrocephalus: CODE(S): G91.9 - Hydrocephalus, unspecified PLAN: Plan Patient evaluated at the wound center today. Wound care - Wound VAC at 150mm Hg three times per week, now that he has a colostomy. His mother is doing a nice job with the wound VAC dressing changes. Hopefully with the wound vac, this will help decrease the depth of his ulcer. Operative culture from 07/16/22 for both the tissue and the bone are positive for Enterobacter cloacae complex. He completed the Levaquin. He has a new Roho cushion for his wheelchair. He has a memory foam mattress at home. He states a hospital low air loss bed won't fit into their trailer. His mother states that he never has any red areas or pressure areas when he is in bed. Patient had a colostomy placed at [facility] on September 30, 2022 and is doing well since then. Follow up two weeks.
[2022-11-04 16:25] VITALS: BP 129/67; PULSE 67; TEMP 36.1; BMI 23.7
== END 2022-11-13 23:59 | disposition home or self-care (01) ==
LOC: WC 14:45
PROVIDERS: Visit Provider Nurse Practitioner Family
DX: L89.154 Pressure ulcer of sacral region, stage 4 (principal); Q05.9 Spina bifida, unspecified; Z98.2 Presence of cerebrospinal fluid drainage device; R21 Rash and other nonspecific skin eruption; Z99.3 Dependence on wheelchair
CPT/HCPCS: 11043; 11046; 97605

== ENCOUNTER 2022-12-12 15:30 | Outpatient (RCR) | payer MEDICARE, MEDICAID, SELFPAY ==
[2022-11-14 00:14] VITALS: BP 129/67; PULSE 67; RESP 20; TEMP 36.1; BMI 23.7
[2022-12-02 14:50] VITALS: BP 111/68; PULSE 102; RESP 16; TEMP 36.6; BMI 23.7
--- NOTE | 2022-12-02 15:15 | PN.PCM_ITS ---
History of Present Illness Date of Service: 12/02/22 Chief Complaint: Recurrent left sacral pressure sore, Stage IV. History of Wound: 26 year old man with a history of Spina bifida presented to the Wound Center with a recurrent left sacral pressure sore that started a couple of months ago according to the patient. He bumped his buttocks sometime during the summer and did not tell his mother until it was infected and draining. He initially went to [facility] in April,, and was hospitalized 3 days for IV antibiotics with Meropenem and Clindamycin. Also received a dose of Vancomycin in the ED and had a skin rash. CT showed a rim- enhancing perirectal fluid collection measuring 3.9 x 6.2 cm, compatible with an abscess. He was transferred to [facility] where an I&D was performed. He has a history of Spina bifida which he has had bilateral hip surgery for hip dysplasia at age 8 and another surgery on legs bilaterally to help him wear braces to stand, which he never has been able to do. He had a sacral muscle flap at age 14 at [facility] for an ulcer. Also has a history of hydrocephalous with a shunt. Surgery 07/16/22 - Excision recurrent left sacral pressure sore, Stage IV, with partial ostectomy for osteomyelitis. Operative tissue and bone cultures positive for Enterobacter cloacae complex and he is on Levaquin. 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 Wound care - Wound VAC at 150 mmHg to be changed 3 times per week. Wound culture from 06/03/22 positive for Bacillus sp. no anthracis and MRSE. He was started on Levaquin. Today denies fever. His appetite is ok. Progress of Wound: The left sacral pressure sore, Stage IV is pink into the muscle. There is no bone exposure. He obtained a colostomy in September at [facility], he is not having any issues with that. His mother states that he is having increased wound VAC drainage with an odor. There is concern that he is not keeping a good seal on the VAC. Objective Data Objective Data Vital Signs: Vital Signs Temp Pulse Resp BP O2 Del Method 97.9 F 102 H 16 111/68 Room Air 12/02/22 14:50 12/02/22 14:50 12/02/22 14:50 12/02/22 14:50 12/02/22 14:50 Oxygen Delivery Method Room Air Weight: 175 lb Body Mass Index (BMI) 23.7 Charges/Coding Procedures Integumentary 111xxx-113xx: 55339 Camelia musc/fascia 20 sq cm/< Add On Codes: 61709 Camelia musc/fascia add-on (x4) Debridement Note Debridement Note Wound debrided: #1 Left sacral area. Laterality: Left Wound Grade/Stage: Stage IV Type of Debridement: Excisional debridement Anesthesia Used: 4% Lidocaine Solution Depth: Down to and including healthy tissue, in the subcutaneous layer and to mu scle Percentage of wound debrided: 100 Instrument Used: 7mm curette Tissue Removed: subcutaneous tissue into the muscle muscle. Severity: Fat Layer Exposed (muscle is exposed. bone is palpable but not exposed.) Amount of bleeding with debridement: Mild Bleeding Controlled with: Pressure and Compression and gauze Patient tolerated procedure: Patient tolerated procedure well Post-Debridement Measurements and Additional Note: Post-Debridement Measurements/Treatment - Nurse 1 - General Ulcer Assessment Start: 12/02/22 14:50 Freq: Status: Active Protocol: ANDREW Activity Type Activity Date Activity User E-sign Co-sign Detail Recorded Client Recorded Date Recorded By Document 12/02/22 14:50 [facility] [id number] 12/02/22 14:59 [facility] 12/02/22 14:50 - Today's Visit Information Type of service Follow-up Visit (Physician/INFUSION PHARMACIST ) Arrival Mode Wheelchair Transfer Assistance Other Transfer Assist (Other) 1 Accompanied by MOM Patient Identification Verified (Name & Yes ) Patient Requires Transmission-Based No Precautions Height and Weight Body Mass Index (BMI) 23.7 BMI Classification Normal Vital Signs Temperature (97.8 F-99.1 F) 97.9 F Temperature Source Temporal Pulse Rate (60-100) 102 H Pulse Location Monitor Respiratory Rate (12-18) 16 Respiratory rate source Observation Oxygen Delivery Method Room Air Blood Pressure (90/60-120/80) 111/68 Blood Pressure Mean (mm Hg) 82 Source Monitor Position Sitting Blood Pressure Location Right Arm History Since Last Visit- (Skip if this is Patient's initial visit) Have you changed medications since your No last visit? Any new allergies or adverse reactions No Had a fall/change in ADL's that may No increase risk of falls Signs or symptoms of abuse and/or No neglect since last visit Have you been in the hospital since your No last visit? Has dressing in place as prescribed Yes Has compression in place as prescribed N/A Has offloadiing in place as prescribed N/A Experienced any changes in pain level or No management Left Footwear Regular Shoe Right Footwear Regular Shoe Pain Scale: 0-10 Numeric Is Patient Pain Free? Yes WC - Nurse 1 - General Ulcer Measurement Start: 12/02/22 14:50 Freq: Status: Active Protocol: Activity Type Activity Date Activity User E-sign Co-sign Detail Recorded Client Recorded Date Recorded By Document 12/02/22 14:50 [facility] [id number] 12/02/22 14:59 [facility] 12/02/22 14:50 Wound Center Nurse 1 #1 left buttucks -Combined with other wound No -Current Size (cm) - Length 11 -Current Size (cm) - Width 7.6 -Current Size (cm) - Depth 4.3 -Total Square Cm 83.6 -Date of Last Picture (Recall this 12/02/22 field) -Photo Taken Yes -Epithelialization None Present -Tunneling No -Undermining/Tunneling Yes -Undermining/Tunneling Starts (O'clock 1 ) -Undermining/Tunneling Ends (O'clock) 5 -Maximum Distance (cm) 5 -Exudate Amt Large -Exudate Type Serosanguineous -Wound Margin Distinct, Outline Attached -Granulation Amt Large (67-100%) -Granulation Quality [place] -Slough/Fibrin Yes -Necrosis Amt Small (1-33%) -Necrotic Tissue Type Adherent Slough -Structure Exposed Bone -Texture (Meliza-wound Skin Appearance) Assessed, Scarring -Moisture (Meliza-wound Skin Appearance) Assessed -Color (Meliza-wound Skin Appearance) Assessed -Temperature (Meliza-wound Skin No Abnormality Appearance) (Pt Warm) -Tenderness on Palpation (Meilza-wound No Skin Appearance) -Ulcer Cleansing Soap and Water -Foul Odor after Cleansing No -Anesthetic Used 4% Lidocaine Solution Assessment/Plan Assessment/Plan (1) Stage IV pressure ulcer of sacral region: CODE(S): L89.154 - Pressure ulcer of sacral region, stage 4 (2) Spina bifida: CODE(S): Q05.9 - Spina bifida, unspecified (3) Wheelchair dependence: CODE(S): Z99.3 - Dependence on wheelchair (4) Hydrocephalus: CODE(S): G91.9 - Hydrocephalus, unspecified PLAN: Plan Patient evaluated at the wound center today. Wound care - Will take a wound VAC holiday for one week. Place Dakins 0.25% moistened gauze daily covered with ABD. Plan on restarting the VAC next week. A wound culture was obtained today.? A positive culture will necessitate antibiotic therapy. Operative culture from 07/16/22 for both the tissue and the bone are positive for Enterobacter cloacae complex. He completed the Levaquin. He has a new Roho cushion for his wheelchair. He has a memory foam mattress at home. He states a hospital low air loss bed won't fit into their trailer. His mother states that he never has any red areas or pressure areas when he is in bed. Patient had a colostomy placed at [facility] on September 30, 2022 and is doing well since then. Follow up next week with Dr. Arechiga at the wound center for further evaluation.
--- NOTE | 2022-12-11 13:49 | WC ---
Have been attempting to get a hold of patient's mother regarding the new prescription for Levaquin. No answer and her voicemail is not set up for messages. Will continue to get a hold of Myrna.
[2022-12-12 15:40] VITALS: BP 115/61; PULSE 113; RESP 20; TEMP 36.8; BMI 23.7
--- NOTE | 2022-12-12 17:30 | PCM.WC.PN ---
History of Present Illness Date of Service: 12/12/22 Chief Complaint: Recurrent left sacral pressure sore, Stage IV. History of Wound: 26 year old man with a history of Spina bifida presented to the Wound Center with a recurrent left sacral pressure sore that started a couple of months ago according to the patient. He bumped his buttocks sometime during the summer and did not tell his mother until it was infected and draining. He initially went to [facility] in April,, and was hospitalized 3 days for IV antibiotics with Meropenem and Clindamycin. Also received a dose of Vancomycin in the ED and had a skin rash. CT showed a rim-enhancing perirectal fluid collection measuring 3.9 x 6.2 cm, compatible with an abscess. He was transferred to [facility] where an I&D was performed. He has a history of Spina bifida which he has had bilateral hip surgery for hip dysplasia at age 8 and another surgery on legs bilaterally to help him wear braces to stand, which he never has been able to do. He had a sacral muscle flap at age 14 at [facility] for an ulcer. Also has a history of hydrocephalous with a shunt. Surgery 07/16/22 - Excision recurrent left sacral pressure sore, Stage IV, with partial ostectomy for osteomyelitis. Surgery 09/30/22 - Diverting colostomy placed at [facility]. Wound care - VAC at 150 mmHg to be changed 3 times per week. Tissue and bone cultures from surgery 07/16/22 were positive for Enterobacter cloacae complex and he was placed on Levaquin. Wound culture from 12/02/22 was positive for Proteus panneri and Streptococcus group C. He was placed on Levaquin. Erythromycin was added for the Streptococcus. Pathology from surgery 07/16/22 was negative for acute osteomyelitis. Prealbumin from 07/17/22 was 14.6. Encourage nutritional supplementation with protein to help the healing process. A CT Pelvis was done on 07/17/22. It showed a 6.1 cm x 4 cm x 7.9 cm large soft tissue defect in the medial aspect of the right buttock and mild involvement of the medial aspect of the left buttock. This tissue defect abuts the distal sacrum and coccygeal elements. Packing material is seen within the defect. There is no evidence of the bony destruction at this time. There is a destruction of the left femoral head with cephalic migration of the left femur and deformity of the shaft of the proximal left femur. No evidence of osteomyelitis of the sacrum or coccygeal elements. Today denies fever. His appetite is ok. Progress of Wound: The left sacral pressure sore, Stage IV is healing with good granulation tissue. There is palpable bone but not exposed. Objective Data Objective Data Vital Signs: Vital Signs Temp Pulse Resp BP O2 Del Method 98.2 F 113 H 20 H 115/61 Room Air 12/12/22 15:40 12/12/22 15:40 12/12/22 15:40 12/12/22 15:40 12/02/22 14:50 Oxygen Delivery Method Room Air Weight: 175 lb Body Mass Index (BMI) 23.7 Prealbumin from 07/17/22 was 14.6. Encourage nutritional supplementation with protein to help the healing process. Lab / Micro Data Attestation: I reviewed the patient's lab results. Micro: Microbiology 12/02/22 15:10 Wound Abcess - Buttock Gram Stain - Final 12/02/22 15:10 Wound Abcess - Buttock Wound Culture - Final Proteus penneri Streptococcus group C 12/02/22 15:10 Wound Abcess - Buttock Anaerobic Culture - Final No anaerobic bacteria isolated. Charges/Coding Procedures Integumentary 111xxx-113xx: 63234 Camelia musc/fascia 20 sq cm/< (ICD-10 - L89.154, Q05.9, Z99.3, G91.9) Add On Codes: 62365 Camelia musc/fascia add-on (x4 Units ICD-10 - ICD-10 - L89.154, Q05.9, Z99.3, G91.9) Debridement Note Debridement Note Wound debrided: #1 Sacral area. Laterality: Not Applicable Wound Grade/Stage: IV. Type of Debridement: Excisional debridement Anesthesia Used: 4% Lidocaine Solution Depth: Down to and including healthy tissue, in the subcutaneous layer, to muscle and to bone (bone is palpable but not exposed and not debrided.) Percentage of wound debrided: 100 Instrument Used: 7mm curette Tissue Removed: subcutaneous tissue and muscle. Severity: Fat Layer Exposed (muscle is exposed. bone is palpable but not exposed and not debrided.) Amount of bleeding with debridement: Mild Bleeding Controlled with: Pressure and Compression and gauze Patient tolerated procedure: Patient tolerated procedure well Post-Debridement Measurements and Additional Note: Post-Debridement Measurements/Treatment LARISSA - Nurse 1 - General Ulcer Assessment Start: 12/02/22 14:50 Freq: Status: Active Protocol: ANDREW Activity Type Activity Date Activity User E-sign Co-sign Detail Recorded Client Recorded Date Recorded By Document 12/02/22 14:50 BMF [id number] 12/02/22 14:59 BMF Document 12/12/22 15:40 DL [id number] 12/12/22 15:41 DL 12/02/22 12/12/22 14:50 15:40 WC - Today's Visit Information Type of service Follow-up Visit Follow-up Visit (Physician/ENTRY LEVEL PROGRAMMER (Physician/ENTRY LEVEL PROGRAMMER ) ) Arrival Mode Wheelchair Wheelchair Transfer Assistance Other None Transfer Assist (Other) 1 Accompanied by MOM Patient Identification Verified (Name & Yes Yes ) Patient Requires Transmission-Based No No Precautions Height and Weight Body Mass Index (BMI) 23.7 23.7 BMI Classification Normal Normal Vital Signs Temperature (97.8 F-99.1 F) 97.9 F 98.2 F Temperature Source Temporal Temporal Pulse Rate (60-100) 102 H 113 H Pulse Location Monitor Monitor Respiratory Rate (12-18) 16 20 H Respiratory rate source Observation Observation Oxygen Delivery Method Room Air Blood Pressure (90/60-120/80) 111/68 115/61 Blood Pressure Mean (mm Hg) 82 79 Source Monitor Monitor Position Sitting Blood Pressure Location Right Arm History Since Last Visit- (Skip if this is Patient's initial visit) Have you changed medications since your No No last visit? Any new allergies or adverse reactions No No Had a fall/change in ADL's that may No No increase risk of falls Signs or symptoms of abuse and/or No No neglect since last visit Have you been in the hospital since your No No last visit? Has dressing in place as prescribed Yes Yes Has compression in place as prescribed N/A N/A Has offloadiing in place as prescribed N/A Yes Experienced any changes in pain level or No No management Left Footwear Regular Shoe Right Footwear Regular Shoe Pain Scale: 0-10 Numeric Is Patient Pain Free? Yes Yes LARISSA - Nurse 1 - General Ulcer Measurement Start: 12/02/22 14:50 Freq: Status: Active Protocol: Activity Type Activity Date Activity User E-sign Co-sign Detail Recorded Client Recorded Date Recorded By Document 12/02/22 14:50 BMF [id number] 12/02/22 14:59 BMF Document 12/12/22 15:40 DL [id number] 12/12/22 15:41 DL 12/02/22 12/12/22 14:50 15:40 Wound Center Nurse 1 #1 left buttucks -Combined with other wound No -Current Size (cm) - Length 11 12 -Current Size (cm) - Width 7.6 8 -Current Size (cm) - Depth 4.3 7 -Total Square Cm 83.6 96 -Date of Last Picture (Recall this 12/02/22 field) -Photo Taken Yes -Epithelialization None Present -Tunneling No -Undermining/Tunneling Yes -Undermining/Tunneling Starts (O'clock 1 ) -Undermining/Tunneling Ends (O'clock) 5 -Maximum Distance (cm) 5 -Exudate Amt Large Medium -Exudate Type Serosanguineous Serosanguineous -Wound Margin Distinct, Distinct, Outline Outline Attached Attached -Granulation Amt Large (67-100%) Large (67-100%) -Granulation Quality [place] -Slough/Fibrin Yes -Necrosis Amt Small (1-33%) Small (1-33%) -Necrotic Tissue Type Adherent Slough Adherent Slough -Structure Exposed Bone N/A -Texture (Meliza-wound Skin Appearance) Assessed, Scarring Scarring -Moisture (Meliza-wound Skin Appearance) Assessed No Abnormality -Color (Meliza-wound Skin Appearance) Assessed No Abnormality -Temperature (Meliza-wound Skin No Abnormality No Abnormality Appearance) (Pt Warm) (Pt Warm) -Tenderness on Palpation (Meliza-wound No No Skin Appearance) -Ulcer Cleansing Soap and Water Soap and Water -Foul Odor after Cleansing No -Anesthetic Used 4% Lidocaine 4% Lidocaine Solution Solution WC - Nurse 2 - General Ulcer CM Notes Start: 12/02/22 14:50 Freq: Status: Active Protocol: Activity Type Activity Date Activity User E-sign Co-sign Detail Recorded Client Recorded Date Recorded By Document 12/02/22 15:58 PL [id number] 12/02/22 16:00 PL Document 12/12/22 15:59 [id number] 12/12/22 16:06 12/02/22 12/12/22 15:58 15:59 Wound Center Nurse 2 #1 left buttucks -Time 14:50 16:02 -Correct Patient Yes Yes -Correct Side, Site, Position Yes Yes -Correct Procedure Yes Yes -Procedure Performed Yes Yes -Type of Procedure Debridement Debridement -Clinical Debridement Muscle / Fascia Muscle / Fascia -Tissue Removed Subcutaneous, Muscle,Fascia Muscle -Post Debridement (cm) - Length 11.0 12.1 -Post Debridement (cm) - Width 9.0 8 -Post Debridement (cm) - Depth 3.5 7 -Total Square (Post) (cm) 99.00 96.8 -Area of Debridement (cm) - Length 11.0 12.1 -Area of Debridement (cm) - Width 9.0 8 -Total Square (Area) (cm) 99.00 96.8 -Tunneling No No -Undermining/Tunneling No No -Circular Undermining No No -Wound/Ulcer Outcome Healed- Not Healed Surgical Closure -Ulcer Cleansing Rinsed/ Irrigated with Saline -Foul Odor after Cleansing No No -Bioengineered Tissue No No -Bleeding Controlled with Pressure Pressure -Treatment Response Procedure Procedure Tolerated Well Tolerated Well -Offloading No -Pressure Reduction Wheelchair cushion -Debridement - Muscle / Fascia, 1st Yes Yes 20sq cm -Debridement, Muscle/Fascia, ea addt'l 4 4 20sq cm or part thereof Pain Scale: 0-10 Numeric Is Patient Pain Free? Yes Yes - Nurse 3 - General Ulcer D/C NN Start: 12/02/22 14:50 Freq: Status: Active Protocol: Activity Type Activity Date Activity User E-sign Co-sign Detail Recorded Client Recorded Date Recorded By Document 12/02/22 15:16 DL [id number] 12/02/22 15:18 DL Document 12/12/22 16:23 DL [id number] 12/12/22 16:24 DL 12/02/22 12/12/22 15:16 16:23 Wound Care Center Nurse 3 #1 left buttucks -Ulcer Cleansing Soap and Water Rinsed/ Irrigated with Saline -Foul Odor after Cleansing No No -Negative Pressure Wound Therapy Continue -Setting (mmHg) 150 -Negative Pressure is Continuous -Primary Dressing Applied Hysept ($) -Other Dressing dakins packing -Other Covering ABD -NPWT Application Charge NPWT & Debridement (nc ) Treatment Response Procedure Procedure Tolerated Well Tolerated Well Pain Scale: 0-10 Numeric Is Patient Pain Free? Yes Yes WC - Visit Discharge Discharge Condition Stable Stable Ambulatory Status Wheelchair Wheelchair Transportation Private Auto Private Auto Accompanied by mother Notes: dressing packed Dressing applie per B Carmen per mother today. today. Assessment/Plan Assessment/Plan (1) Stage IV pressure ulcer of sacral region: CODE(S): L89.154 - Pressure ulcer of sacral region, stage 4 (2) Spina bifida: CODE(S): Q05.9 - Spina bifida, unspecified (3) Wheelchair dependence: CODE(S): Z99.3 - Dependence on wheelchair (4) Hydrocephalus: CODE(S): G91.9 - Hydrocephalus, unspecified PLAN: Plan Restart the VAC after taking a VAC holiday for one week. A wound culture was obtained today.? It was positive for Proteus panneri and Streptococcus group C. He was placed on Levaquin. Erythromycin was added for the Streptococcus. Prealbumin from 07/17/22 was 14.6. Encourage nutritional supplementation with protein to help the healing process. Patient had a colostomy placed at [facility] on September 30, 2022 and is doing well since then. He has a new Roho cushion for his wheelchair. He has a memory foam mattress at home. He states a hospital low air loss bed won't fit into their trailer. His mother states that he never has any red areas or pressure areas when he is in bed. A memory foam mattress is not adequate for a Stage IV pressure sore. When the wound is closed with muscle flaps, a hospital low air loss bed is paramount. Otherwise the memory foam mattress will place extra pressure on the surgical incision, and there is a very high likelihood that the flap would fail. The patient and family are anxious for wound closure. Stressed the importance of control of infection, maximize the nutrition, and have proper low air loss bed before considering wound closure. I anticipate wound closure in 6 months, tentative. Initially will need another excision along with partial ostectomy to evaluate for osteomyelitis. The gluteus apollo V-Y myocutaneous flaps appear to be maximally advanced. Not sure how much advancement I will get for closure even by mobilizing and advancing both gluteus apollo myocutaneous flaps. Vastus lateralis muscular flaps can be used as well. However its blood supply is in the proximal thigh. He has bilateral incisions from previous hip surgery. Don't know preop whether these muscle flaps will be able to be used because of previous surgical dissection that may have compromised the proximal blood supply to the vastus lateralis muscle. So when the muscle is elevated from distal to proximal, there is a chance the muscle won't survive because of compromised proximal blood supply. Ultimately the last resort would be a total thigh flap to provide enough soft tissue to close the pressure sore. The flap necessitates an amputation. The mother stated that they are not in favor of an amputation. The patient may benefit from being evaluated at a tertiary center for possible wound closure with microvascular free tissue transfer if the above mentioned muscles end up being inadequate for complete wound closure. At the time of the excision of the pressure sore in preparation for wound closure with muscle flaps, will check a Prealbumin and send soft tissue and bone to Pathology as well as to Microbiology. A positive culture will necessitate antibiotic therapy, possibly IV. Followup one week.
== END 2022-12-13 23:59 | disposition home or self-care (01) ==
LOC: WC 15:30
PROVIDERS: Visit Provider Nurse Practitioner Family
DX: L89.154 Pressure ulcer of sacral region, stage 4 (principal); Q05.9 Spina bifida, unspecified; Z99.3 Dependence on wheelchair; R21 Rash and other nonspecific skin eruption
CPT/HCPCS: 11043; 11046; 87070; 87075; 87077; 87186; 87205

== ENCOUNTER 2023-01-13 13:30 | Outpatient (RCR) | payer MEDICARE, MEDICAID, SELFPAY ==
[2022-12-14 00:36] VITALS: BP 115/61; PULSE 113; RESP 20; TEMP 36.8; BMI 23.7
[2022-12-23 14:20] VITALS: BP 105/60; PULSE 104; RESP 104; TEMP 36.8; BMI 23.7
--- NOTE | 2022-12-23 15:09 | PCM.WC.PN ---
History of Present Illness Date of Service: 12/23/22 Chief Complaint: Recurrent left sacral pressure sore, Stage IV. History of Wound: 26 year old man with a history of Spina bifida presented to the [facility] with a recurrent left sacral pressure sore that started a couple of months ago according to the patient. He bumped his buttocks sometime during the summer and did not tell his mother until it was infected and draining. He initially went to [facility] in April,, and was hospitalized 3 days for IV antibiotics with Meropenem and Clindamycin. Also received a dose of Vancomycin in the ED and had a skin rash. CT showed a rim-enhancing perirectal fluid collection measuring 3.9 x 6.2 cm, compatible with an abscess. He was transferred to [facility] where an I&D was performed. He has a history of Spina bifida which he has had bilateral hip surgery for hip dysplasia at age 8 and another surgery on legs bilaterally to help him wear braces to stand, which he never has been able to do. He had a sacral muscle flap at age 14 at [facility] for an ulcer. Also has a history of hydrocephalous with a shunt. Surgery 07/16/22 - Excision recurrent left sacral pressure sore, Stage IV, with partial ostectomy for osteomyelitis. Operative tissue and bone cultures positive for Enterobacter cloacae complex and he is on Levaquin. Consult placed for diverting colostomy but it was recommended the patient be referred to a tertiary center due to his CHAIRMAN shunt and urinary conduit. Wound care - Wound VAC at 150 mmHg to be changed 3 times per week. Wound culture from 06/03/22 positive for Bacillus sp. no anthracis and MRSE. He was started on Levaquin. Today denies fever. His appetite is ok. Progress of Wound: The left sacral pressure sore, Stage IV is healing with good granulation tissue. There is palpable bone but not exposed. His mother states they have had some issues over the past couple days with the wound VAC because he is perspiring so much due to the heat. Meliza wound is clear. Objective Data Objective Data Vital Signs: Vital Signs Temp Pulse Resp BP O2 Del Method 98.2 F 104 H 104 H 105/60 Room Air 12/23/22 14:20 12/23/22 14:20 12/23/22 14:20 12/23/22 14:20 12/23/22 14:20 Oxygen Delivery Method Room Air Weight: 175 lb Body Mass Index (BMI) 23.7 Charges/Coding Procedures Integumentary 111xxx-113xx: 22443 Camelia musc/fascia 20 sq cm/< Add On Codes: 68054 Camelia musc/fascia add-on (x4) Debridement Note Debridement Note Wound debrided: #1 Sacral area. Laterality: Not Applicable Wound Grade/Stage: IV. Type of Debridement: Excisional debridement Anesthesia Used: 4% Lidocaine Solution Depth: Down to and including healthy tissue, in the subcutaneous layer, to muscle and to bone (bone is palpable but not exposed and not debrided.) Percentage of wound debrided: 100 Instrument Used: 7mm curette Tissue Removed: subcutaneous tissue and muscle. Severity: Fat Layer Exposed (muscle is exposed. bone is palpable but not exposed and not debrided.) Amount of bleeding with debridement: Mild Bleeding Controlled with: Pressure and Compression and gauze Patient tolerated procedure: Patient tolerated procedure well Post-Debridement Measurements and Additional Note: Post-Debridement Measurements/Treatment - Nurse 1 - General Ulcer Assessment Start: 12/23/22 14:18 Freq: Status: Active Protocol: [email or web address].[email or web address] Activity Type Activity Date Activity User E-sign Co-sign Detail Recorded Client Recorded Date Recorded By Document 12/23/22 14:20 [facility] [id number] 12/23/22 14:33 [facility] 12/23/22 14:20 - Today's Visit Information Type of service Follow-up Visit (Physician/INSPECTOR [employer] [facility] ) Arrival Mode Wheelchair Transfer Assistance Other Transfer Assist (Other) stand by Accompanied by mom Patient Identification Verified (Name & Yes ) Patient Requires Transmission-Based No Precautions Height and Weight Body Mass Index (BMI) 23.7 BMI Classification Normal Vital Signs Temperature (97.8 F-99.1 F) 98.2 F Temperature Source Temporal Pulse Rate (60-100) 104 H Pulse Location Monitor Respiratory Rate (12-18) 104 H Respiratory rate source Observation Oxygen Delivery Method Room Air Blood Pressure (90/60-120/80) 105/60 Blood Pressure Mean (mm Hg) 75 Source Monitor Position Sitting Blood Pressure Location Left Arm History Since Last Visit- (Skip if this is Patient's initial visit) Have you changed medications since your No last visit? Any new allergies or adverse reactions No Had a fall/change in ADL's that may No increase risk of falls Signs or symptoms of abuse and/or No neglect since last visit Have you been in the hospital since your No last visit? Has dressing in place as prescribed Yes Has compression in place as prescribed N/A Has offloadiing in place as prescribed N/A Experienced any changes in pain level or No management Left Footwear Regular Shoe Right Footwear Regular Shoe Pain Scale: 0-10 Numeric Is Patient Pain Free? Yes LARISSA - Nurse 1 - General Ulcer Measurement Start: 12/23/22 14:18 Freq: Status: Active Protocol: Activity Type Activity Date Activity User E-sign Co-sign Detail Recorded Client Recorded Date Recorded By Document 12/23/22 14:20 [facility] [id number] 12/23/22 14:33 [facility] 12/23/22 14:20 Wound Center Nurse 1 #1 left buttucks -Combined with other wound No -Current Size (cm) - Length 12.9 -Current Size (cm) - Width 3.4 -Current Size (cm) - Depth 4.2 -Total Square Cm 43.86 -Date of Last Picture (Recall this 12/23/22 field) -Photo Taken Yes -Epithelialization None Present -Tunneling No -Undermining/Tunneling Yes -Undermining/Tunneling Starts (O'clock 8 ) -Undermining/Tunneling Ends (O'clock) 3 -Maximum Distance (cm) 4.3 -Circular Undermining No -Exudate Amt Large -Exudate Type Serosanguineous -Wound Margin Distinct, Outline Attached -Granulation Amt Large (67-100%) -Granulation Quality Red -Slough/Fibrin Yes -Necrosis Amt Small (1-33%) -Necrotic Tissue Type Adherent Slough -Texture (Meliza-wound Skin Appearance) Assessed, Scarring -Moisture (Meliza-wound Skin Appearance) Assessed -Color (Meliza-wound Skin Appearance) Assessed -Temperature (Meliza-wound Skin No Abnormality Appearance) (Pt Warm) -Tenderness on Palpation (Meliza-wound No Skin Appearance) -Ulcer Cleansing Soap and Water -Foul Odor after Cleansing No -Anesthetic Used 4% Lidocaine Solution LARISSA - Nurse 2 - General Ulcer CM Notes Start: 12/23/22 14:18 Freq: Status: Active Protocol: Activity Type Activity Date Activity User E-sign Co-sign Detail Recorded Client Recorded Date Recorded By Document 12/23/22 14:52 [id number] 12/23/22 14:57 JF 12/23/22 14:52 Wound Center Nurse 2 -Time 14:52 -Correct Patient Yes -Correct Side, Site, Position Yes -Correct Procedure Yes -Procedure Performed Yes -Type of Procedure Debridement -Clinical Debridement Muscle / Fascia -Tissue Removed Muscle,Fascia -Post Debridement (cm) - Length 12.0 -Post Debridement (cm) - Width 8.0 -Post Debridement (cm) - Depth 2.8 -Total Square (Post) (cm) 96.00 -Area of Debridement (cm) - Length 12 -Area of Debridement (cm) - Width 8.0 -Total Square (Area) (cm) 96.0 -Tunneling No -Undermining/Tunneling Yes -Undermining/Tunneling Starts (O'clock 7 ) -Undermining/Tunneling Ends (O'clock) 12 -Maximum Distance (cm) 5.5 -Circular Undermining No -Wound/Ulcer Outcome Not Healed -Ulcer Cleansing Rinsed/ Irrigated with Saline -Foul Odor after Cleansing No -Bioengineered Tissue No -Bleeding Controlled with Pressure -Treatment Response Procedure Tolerated Well -Offloading No -Pressure Reduction Wheelchair cushion -Debridement - Muscle / Fascia, 1st Yes 20sq cm -Debridement, Muscle/Fascia, ea addt'l 4 20sq cm or part thereof Pain Scale: 0-10 Numeric Is Patient Pain Free? Yes - Nurse 3 - General Ulcer D/C NN Start: 12/23/22 14:18 Freq: Status: Active Protocol: Activity Type Activity Date Activity User E-sign Co-sign Detail Recorded Client Recorded Date Recorded By Document 12/23/22 15:03 DL [id number] 12/23/22 15:04 DL 12/23/22 15:03 Wound Care Center Nurse 3 #1 left buttucks -Ulcer Cleansing Soap and Water -Foul Odor after Cleansing No -Negative Pressure Wound Therapy Continue -Setting (mmHg) 150 -Negative Pressure is Continuous -NPWT Application Charge NPWT & Debridement (nc ) Meliza-Wound Care Barrier Treatment Response Procedure Tolerated Well Pain Scale: 0-10 Numeric Is Patient Pain Free? Yes - Visit Discharge Discharge Condition Stable Ambulatory Status Wheelchair Transportation Private Auto Assessment/Plan Assessment/Plan (1) Stage IV pressure ulcer of sacral region: CODE(S): L89.154 - Pressure ulcer of sacral region, stage 4 (2) Spina bifida: CODE(S): Q05.9 - Spina bifida, unspecified (3) Wheelchair dependence: CODE(S): Z99.3 - Dependence on wheelchair (4) Hydrocephalus: CODE(S): G91.9 - Hydrocephalus, unspecified PLAN: Plan Patient was evaluated at the wound healing center today. Wound care - Wound VAC at 150 mmHg to be changed 3 times per week. Wash ulcer and meliza wound with soap and water at the time of the dressing change. If have difficulty keeping the wound vac dressing in place due to perspiration, stressed importance of keeping a good seal. If there is not a good seal then may remove the VAC and place Dakins 0.25% moistened gauze covered with ABD daily. A wound culture was obtained 12/02/22, it was positive for Proteus panneri and Streptococcus group C. He was placed on Levaquin. Erythromycin was added for the Streptococcus. Prealbumin from 07/17/22 was 14.6. Encourage nutritional supplementation with protein to help the healing process. Patient had a colostomy placed at [facility] on September 30, 2022 and is doing well since then. Follow up 2 weeks. Call or come in if develop any concerns. He has a new Roho cushion for his wheelchair. He has a memory foam mattress at home. He states a hospital low air loss bed won't fit into their trailer. His mother states that he never has any red areas or pressure areas when he is in bed. A memory foam mattress is not adequate for a Stage IV pressure sore. When the wound is closed with muscle flaps, a hospital low air loss bed is paramount. Otherwise the memory foam mattress will place extra pressure on the surgical incision, and there is a very high likelihood that the flap would fail. The patient and family are anxious for wound closure. Stressed the importance of control of infection, maximize the nutrition, and have proper low air loss bed before considering wound closure. I anticipate wound closure in 6 months, tentative. Initially will need another excision along with partial ostectomy to evaluate for osteomyelitis. The gluteus apollo V-Y myocutaneous flaps appear to be maximally advanced. Not sure how much advancement I will get for closure even by mobilizing and advancing both gluteus apollo myocutaneous flaps. Vastus lateralis muscular flaps can be used as well. However its blood supply is in the proximal thigh. He has bilateral incisions from previous hip surgery. Don't know preop whether these muscle flaps will be able to be used because of previous surgical dissection that may have compromised the proximal blood supply to the vastus lateralis muscle. So when the muscle is elevated from distal to proximal, there is a chance the muscle won't survive because of compromised proximal blood supply. Ultimately the last resort would be a total thigh flap to provide enough soft tissue to close the pressure sore. The flap necessitates an amputation. The mother stated that they are not in favor of an amputation. The patient may benefit from being evaluated at a tertiary center for possible wound closure with microvascular free tissue transfer if the above mentioned muscles end up being inadequate for complete wound closure. At the time of the excision of the pressure sore in preparation for wound closure with muscle flaps, will check a Prealbumin and send soft tissue and bone to Pathology as well as to Microbiology. A positive culture will necessitate antibiotic therapy, possibly IV.
[2023-01-13 13:48] VITALS: BP 108/75; PULSE 111; RESP 16; TEMP 36.8; BMI 23.7
--- NOTE | 2023-01-13 14:27 | PCM.WC.PN ---
History of Present Illness Date of Service: 01/13/23 Chief Complaint: Recurrent left sacral pressure sore, Stage IV. History of Wound: 26 year old man with a history of Spina bifida presented to the Wound Center with a recurrent left sacral pressure sore that started a couple of months ago according to the patient. He bumped his buttocks sometime during the summer and did not tell his mother until it was infected and draining. He initially went to [facility] in April,, and was hospitalized 3 days for IV antibiotics with Meropenem and Clindamycin. Also received a dose of Vancomycin in the ED and had a skin rash. CT showed a rim-enhancing perirectal fluid collection measuring 3.9 x 6.2 cm, compatible with an abscess. He was transferred to [facility] where an I&D was performed. He has a history of Spina bifida which he has had bilateral hip surgery for hip dysplasia at age 8 and another surgery on legs bilaterally to help him wear braces to stand, which he never has been able to do. He had a sacral muscle flap at age 14 at [facility] for an ulcer. Also has a history of hydrocephalous with a shunt. Surgery 07/16/22 - Excision recurrent left sacral pressure sore, Stage IV, with partial ostectomy for osteomyelitis. Operative tissue and bone cultures positive for Enterobacter cloacae complex and he is on Levaquin. Consult placed for diverting colostomy but it was recommended the patient be referred to a tertiary center due to his COMPLAINT MANAGER shunt and urinary conduit. Wound care - Wound VAC at 150 mmHg to be changed 3 times per week. Wound culture from 06/03/22 positive for Bacillus sp. no anthracis and MRSE. He was started on Levaquin. Today denies fever. His appetite is ok. Progress of Wound: The left sacral pressure sore, Stage IV is healing with good granulation tissue. There is palpable bone but not exposed. His mother states that the wound VAC has not been working correctly. The collection canister alarm won't go off so she stopped using the wound VAC and has been using Dakins wet to dry dressings. He also has a pressure area on his posterior scrotum that is intact but needs to be watched closely it measures approximately 0.5 x 0.1 cm. Objective Data Objective Data Vital Signs: Vital Signs Temp Pulse Resp BP O2 Del Method 98.2 F 111 H 16 108/75 Room Air 01/13/23 13:48 01/13/23 13:48 01/13/23 13:48 01/13/23 13:48 01/13/23 13:48 Oxygen Delivery Method Room Air Weight: 175 lb Body Mass Index (BMI) 23.7 Charges/Coding Procedures Integumentary 111xxx-113xx: [id number] Camelia musc/fascia 20 sq cm/< Add On Codes: 82531 Camelia musc/fascia add-on (x4) Debridement Note Debridement Note Wound debrided: #1 Sacral area. Laterality: Not Applicable Wound Grade/Stage: IV. Type of Debridement: Excisional debridement Anesthesia Used: 4% Lidocaine Solution Depth: Down to and including healthy tissue, in the subcutaneous layer, to muscle and to bone (bone is palpable but not exposed and not debrided.) Percentage of wound debrided: 100 Instrument Used: 7mm curette Tissue Removed: subcutaneous tissue and muscle. Severity: Fat Layer Exposed (muscle is exposed. bone is palpable but not exposed and not debrided.) Amount of bleeding with debridement: Mild Bleeding Controlled with: Pressure and Compression and gauze Patient tolerated procedure: Patient tolerated procedure well Post-Debridement Measurements and Additional Note: Post-Debridement Measurements/Treatment - Nurse 1 - General Ulcer Assessment Start: 12/23/22 14:18 Freq: Status: Active Protocol: ANDREW Activity Type Activity Date Activity User E-sign Co-sign Detail Recorded Client Recorded Date Recorded By Document 12/23/22 14:20 [facility] [id number] 12/23/22 14:33 [facility] Document 01/13/23 13:48 [facility] [id number] 01/13/23 13:58 [facility] 12/23/22 01/13/23 14:20 13:48 - Today's Visit Information Type of service Follow-up Visit Follow-up Visit (Physician/PROP WORKER (Physician/PROP WORKER ) ) Arrival Mode Wheelchair Wheelchair Transfer Assistance Other Other Transfer Assist (Other) stand by 1 Accompanied by mom MOM Patient Identification Verified (Name & Yes Yes ) Patient Requires Transmission-Based No No Precautions Height and Weight Body Mass Index (BMI) 23.7 23.7 BMI Classification Normal Normal Vital Signs Temperature (97.8 F-99.1 F) 98.2 F 98.2 F Temperature Source Temporal Temporal Pulse Rate (60-100) 104 H 111 H Pulse Location Monitor Monitor Respiratory Rate (12-18) 104 H 16 Respiratory rate source Observation Observation Oxygen Delivery Method Room Air Room Air Blood Pressure (90/60-120/80) 105/60 108/75 Blood Pressure Mean (mm Hg) 75 86 Source Monitor Monitor Position Sitting Sitting Blood Pressure Location Left Arm Left Arm History Since Last Visit- (Skip if this is Patient's initial visit) Have you changed medications since your No No last visit? Any new allergies or adverse reactions No No Had a fall/change in ADL's that may No No increase risk of falls Signs or symptoms of abuse and/or No No neglect since last visit Have you been in the hospital since your No No last visit? Has dressing in place as prescribed Yes No Has compression in place as prescribed N/A N/A Has offloadiing in place as prescribed N/A N/A Experienced any changes in pain level or No No management Left Footwear Regular Shoe Regular Shoe Right Footwear Regular Shoe Regular Shoe Pain Scale: 0-10 Numeric Is Patient Pain Free? Yes Yes WC - Nurse 1 - General Ulcer Measurement Start: 12/23/22 14:18 Freq: Status: Active Protocol: Activity Type Activity Date Activity User E-sign Co-sign Detail Recorded Client Recorded Date Recorded By Document 12/23/22 14:20 [facility] [id number] 12/23/22 14:33 [facility] Document 01/13/23 13:48 [facility] [id number] 01/13/23 13:58 [facility] 12/23/22 01/13/23 14:20 13:48 Wound Center Nurse 1 #1 left buttucks -Combined with other wound No No -Current Size (cm) - Length 12.9 12.2 -Current Size (cm) - Width 3.4 4.5 -Current Size (cm) - Depth 4.2 4.6 -Total Square Cm 43.86 54.90 -Date of Last Picture (Recall this 12/23/22 01/13/23 field) -Photo Taken Yes Yes -Epithelialization None Present None Present -Tunneling No No -Undermining/Tunneling Yes Yes -Undermining/Tunneling Starts (O'clock 8 9 ) -Undermining/Tunneling Ends (O'clock) 3 2 -Maximum Distance (cm) 4.3 8 -Circular Undermining No No -Exudate Amt Large Large -Exudate Type Serosanguineous Serosanguineous -Wound Margin Distinct, Distinct, Outline Outline Attached Attached -Granulation Amt Large (67-100%) Large (67-100%) -Granulation Quality Red Pale -Slough/Fibrin Yes Yes -Necrosis Amt Small (1-33%) Small (1-33%) -Necrotic Tissue Type Adherent Slough Adherent Slough -Structure Exposed Bone -Texture (Meliza-wound Skin Appearance) Assessed, Assessed Scarring -Moisture (Meliza-wound Skin Appearance) Assessed Assessed -Color (Meliza-wound Skin Appearance) Assessed Assessed -Temperature (Meliza-wound Skin No Abnormality No Abnormality Appearance) (Pt Warm) (Pt Warm) -Tenderness on Palpation (Meliza-wound No No Skin Appearance) -Ulcer Cleansing Soap and Water Soap and Water -Foul Odor after Cleansing No No -Anesthetic Used 4% Lidocaine 4% Lidocaine Solution Solution WC - Nurse 2 - General Ulcer CM Notes Start: 12/23/22 14:18 Freq: Status: Active Protocol: Activity Type Activity Date Activity User E-sign Co-sign Detail Recorded Client Recorded Date Recorded By Document 12/23/22 14:52 [id number] 12/23/22 14:57 Document 01/13/23 14:13 [id number] 01/13/23 14:19 12/23/22 01/13/23 14:52 14:13 Wound Center Nurse 2 #1 left buttucks -Time 14:52 14:15 -Correct Patient Yes Yes -Correct Side, Site, Position Yes Yes -Correct Procedure Yes Yes -Procedure Performed Yes Yes -Type of Procedure Debridement Debridement -Clinical Debridement Muscle / Fascia Muscle / Fascia -Tissue Removed Muscle,Fascia Muscle,Fascia -Post Debridement (cm) - Length 12.0 12 -Post Debridement (cm) - Width 8.0 8 -Post Debridement (cm) - Depth 2.8 4 -Total Square (Post) (cm) 96.00 96 -Area of Debridement (cm) - Length 12 12 -Area of Debridement (cm) - Width 8.0 8 -Total Square (Area) (cm) 96.0 96 -Tunneling No No -Undermining/Tunneling Yes Yes -Undermining/Tunneling Starts (O'clock 7 7 ) -Undermining/Tunneling Ends (O'clock) 12 12 -Maximum Distance (cm) 5.5 7.6 -Circular Undermining No No -Wound/Ulcer Outcome Not Healed Not Healed -Ulcer Cleansing Rinsed/ Rinsed/ Irrigated with Irrigated with Saline Saline -Foul Odor after Cleansing No No -Bioengineered Tissue No No -Bleeding Controlled with Pressure Pressure -Treatment Response Procedure Procedure Tolerated Well Tolerated Well -Offloading No No -Pressure Reduction Wheelchair Wheelchair cushion cushion -Debridement - Muscle / Fascia, 1st Yes Yes 20sq cm -Debridement, Muscle/Fascia, ea addt'l 4 4 20sq cm or part thereof Pain Scale: 0-10 Numeric Is Patient Pain Free? Yes Yes - Nurse 3 - General Ulcer D/C NN Start: 12/23/22 14:18 Freq: Status: Active Protocol: Activity Type Activity Date Activity User E-sign Co-sign Detail Recorded Client Recorded Date Recorded By Document 12/23/22 15:03 DL [id number] 12/23/22 15:04 DL Document 01/13/23 14:25 DL [id number] 01/13/23 14:26 DL 12/23/22 01/13/23 15:03 14:25 Wound Care Center Nurse 3 #1 left buttucks -Ulcer Cleansing Soap and Water Soap and Water -Foul Odor after Cleansing No No -Negative Pressure Wound Therapy Continue Continue -Setting (mmHg) 150 150 -Negative Pressure is Continuous Continuous -NPWT Application Charge NPWT & NPWT & Debridement (nc Debridement (nc ) ) Meliza-Wound Care Barrier Treatment Response Procedure Procedure Tolerated Well Tolerated Well Pain Scale: 0-10 Numeric Is Patient Pain Free? Yes Yes WC - Visit Discharge Discharge Condition Stable Stable Ambulatory Status Wheelchair Wheelchair Transportation Private Auto Private Auto Assessment/Plan Assessment/Plan (1) Stage IV pressure ulcer of sacral region: CODE(S): L89.154 - Pressure ulcer of sacral region, stage 4 (2) Spina bifida: CODE(S): Q05.9 - Spina bifida, unspecified (3) Wheelchair dependence: CODE(S): Z99.3 - Dependence on wheelchair (4) Hydrocephalus: CODE(S): G91.9 - Hydrocephalus, unspecified PLAN: Plan Patient was evaluated at the wound healing center today. Wound care - Wound VAC at 150 mmHg to be changed 3 times per week. Wash ulcer and meliza wound with soap and water at the time of the dressing change. If have difficulty keeping the wound vac dressing in place due to perspiration, stressed importance of keeping a good seal. If there is not a good seal then may remove the VAC and place Dakins 0.25% moistened gauze covered with ABD daily. To his scrotal pressure area, place skin barrier daily to the area to help protect it. Discussed making sure that he is not sitting on his scrotum. Will monitor closely. A wound culture was obtained 12/02/22, it was positive for Proteus panneri and Streptococcus group C. He was placed on Levaquin. Erythromycin was added for the Streptococcus. Prealbumin from 07/17/22 was 14.6. Encourage nutritional supplementation with protein to help the healing process. Patient had a colostomy placed at [facility] on September 30, 2022 and is doing well since then. Follow up 2 weeks. Call or come in if develop any concerns. He has a new Roho cushion for his wheelchair. He has a memory foam mattress at home. He states a hospital low air loss bed won't fit into their trailer. His mother states that he never has any red areas or pressure areas when he is in bed. A memory foam mattress is not adequate for a Stage IV pressure sore. When the wound is closed with muscle flaps, a hospital low air loss bed is paramount. Otherwise the memory foam mattress will place extra pressure on the surgical incision, and there is a very high likelihood that the flap would fail. The patient and family are anxious for wound closure. Stressed the importance of control of infection, maximize the nutrition, and have proper low air loss bed before considering wound closure. I anticipate wound closure in 6 months, tentative. Initially will need another excision along with partial ostectomy to evaluate for osteomyelitis. The gluteus apollo V-Y myocutaneous flaps appear to be maximally advanced. Not sure how much advancement I will get for closure even by mobilizing and advancing both gluteus apollo myocutaneous flaps. Vastus lateralis muscular flaps can be used as well. However its blood supply is in the proximal thigh. He has bilateral incisions from previous hip surgery. Don't know preop whether these muscle flaps will be able to be used because of previous surgical dissection that may have compromised the proximal blood supply to the vastus lateralis muscle. So when the muscle is elevated from distal to proximal, there is a chance the muscle won't survive because of compromised proximal blood supply. Ultimately the last resort would be a total thigh flap to provide enough soft tissue to close the pressure sore. The flap necessitates an amputation. The mother stated that they are not in favor of an amputation. The patient may benefit from being evaluated at a tertiary center for possible wound closure with microvascular free tissue transfer if the above mentioned muscles end up being inadequate for complete wound closure. At the time of the excision of the pressure sore in preparation for wound closure with muscle flaps, will check a Prealbumin and send soft tissue and bone to Pathology as well as to Microbiology. A positive culture will necessitate antibiotic therapy, possibly IV.
== END 2023-01-13 23:59 | disposition home or self-care (01) ==
LOC: WC 13:30
PROVIDERS: Visit Provider Nurse Practitioner Family
DX: L89.154 Pressure ulcer of sacral region, stage 4 (principal); Q05.9 Spina bifida, unspecified; Z98.2 Presence of cerebrospinal fluid drainage device; Z99.3 Dependence on wheelchair
CPT/HCPCS: 11043; 11046

== ENCOUNTER 2023-01-29 10:11 | Outpatient (RCR) | payer MEDICARE, MEDICAID, SELFPAY ==
[2023-01-14 00:29] VITALS: BP 108/75; PULSE 111; RESP 16; TEMP 36.8; BMI 23.7
[2023-01-29 11:03] VITALS: BP 120/74; PULSE 126; RESP 20; TEMP 37.4; BMI 23.7
--- NOTE | 2023-01-29 14:09 | PN.PCM_ITS ---
History of Present Illness Date of Service: 01/29/23 Chief Complaint: Recurrent left sacral pressure sore, Stage IV. History of Wound: 27 year old man with a history of Spina bifida presented to the Wound Center with a recurrent left sacral pressure sore that started a couple of months ago according to the patient. He bumped his buttocks sometime during the summer and did not tell his mother until it was infected and draining. He initially went to [facility] in April,, and was hospitalized 3 days for IV antibiotics with Meropenem and Clindamycin. Also received a dose of Vancomycin in the ED and had a skin rash. CT showed a rim- enhancing perirectal fluid collection measuring 3.9 x 6.2 cm, compatible with an abscess. He was transferred to [facility] where an I&D was performed. He has a history of Spina bifida which he has had bilateral hip surgery for hip dysplasia at age 8 and another surgery on legs bilaterally to help him wear braces to stand, which he never has been able to do. He had a sacral muscle flap at age 14 at [facility] for an ulcer. Also has a history of hydrocephalous with a shunt. Surgery 07/16/22 - Excision recurrent left sacral pressure sore, Stage IV, with partial ostectomy for osteomyelitis. Operative tissue and bone cultures positive for Enterobacter cloacae complex and he is on Levaquin. Consult placed for diverting colostomy but it was recommended the patient be referred to a tertiary center due to his ROOTER OPERATOR shunt and urinary conduit. Wound care - Wound VAC at 150 mmHg to be changed 3 times per week. Wound culture from 06/03/22 positive for Bacillus sp. no anthracis and MRSE. He was started on Levaquin. Today denies fever. His appetite is ok. Progress of Wound: The left sacral pressure sore, Stage IV is healing with good granulation tissue. There is palpable bone but not exposed. His mother states that the wound VAC has not been working correctly, they have been doing Dakins moistened gauze dressing changes while waiting for a new wound VAC. His mom states he has been having nausea and vomiting for the past couple days with fevers as high as 102. He has not been eating or drinking anything. She states that he isn't as sharp as he typically is. He is warm to touch. Wound culture obtained after his debridement and I am referring him to the ED for further evaluation. Objective Data Objective Data Vital Signs: Vital Signs Temp Pulse Resp BP 99.4 F H 126 H 20 H 120/74 01/29/23 11:03 01/29/23 11:03 01/29/23 11:03 01/29/23 11:03 Weight: 175 lb Body Mass Index (BMI) 23.7 Charges/Coding Procedures Integumentary 111xxx-113xx: 75057 Camelia musc/fascia 20 sq cm/< Add On Codes: 78920 Camelia musc/fascia add-on (x4) Debridement Note Debridement Note Wound debrided: #1 Sacral area. Laterality: Not Applicable Wound Grade/Stage: IV. Type of Debridement: Excisional debridement Anesthesia Used: 4% Lidocaine Solution Depth: Down to and including healthy tissue, in the subcutaneous layer, to muscle and to bone (bone is palpable but not exposed and not debrided.) Percentage of wound debrided: 100 Instrument Used: 7mm curette Tissue Removed: subcutaneous tissue and muscle. Severity: Fat Layer Exposed (muscle is exposed. bone is palpable but not exposed and not debrided.) Amount of bleeding with debridement: Mild Bleeding Controlled with: Pressure and Compression and gauze Patient tolerated procedure: Patient tolerated procedure well Debridement Free Text: Ulcer into the muscle with bone covered but palpable. Post-Debridement Measurements and Additional Note: Post-Debridement Measurements/Treatment - Nurse 1 - General Ulcer Assessment Start: 01/29/23 11:00 Freq: Status: Active Protocol: .LOWEXT Activity Type Activity Date Activity User E-sign Co-sign Detail Recorded Client Recorded Date Recorded By Document 01/29/23 11:03 [id number] 01/29/23 11:13 JOHNATHAN 01/29/23 11:03 - Today's Visit Information Type of service Follow-up Visit (Physician/MOTOR VEHICLE REPRESENTATIVE ) Arrival Mode Wheelchair Transfer Assistance None Patient Identification Verified (Name & Yes ) Patient Requires Transmission-Based No Precautions Height and Weight Body Mass Index (BMI) 23.7 BMI Classification Normal Vital Signs Temperature (97.8 F-99.1 F) 99.4 F H Temperature Source Oral Pulse Rate (60-100) 126 H Pulse Location Monitor Respiratory Rate (12-18) 20 H Respiratory rate source Observation Blood Pressure (90/60-120/80) 120/74 Blood Pressure Mean (mm Hg) 89 Source Monitor History Since Last Visit- (Skip if this is Patient's initial visit) Have you changed medications since your No last visit? Any new allergies or adverse reactions No Had a fall/change in ADL's that may No increase risk of falls Signs or symptoms of abuse and/or No neglect since last visit Have you been in the hospital since your No last visit? Has dressing in place as prescribed Yes Has compression in place as prescribed N/A Has offloadiing in place as prescribed N/A Experienced any changes in pain level or No management Pain Scale: 0-10 Numeric Is Patient Pain Free? Yes - Nurse 1 - General Ulcer Measurement Start: 01/29/23 11:00 Freq: Status: Active Protocol: Activity Type Activity Date Activity User E-sign Co-sign Detail Recorded Client Recorded Date Recorded By Document 01/29/23 11:03 JOHNATHAN [id number] 01/29/23 11:13 JOHNATHAN 01/29/23 11:03 Wound Center Nurse 1 #1 left buttucks -Current Size (cm) - Length 12 -Current Size (cm) - Width 10.5 -Current Size (cm) - Depth 7 -Total Square Cm 126.0 -Exudate Amt Medium -Exudate Type Serosanguineous -Wound Margin Distinct, Outline Attached -Granulation Amt Medium (34-66%) -Granulation Quality [place],Red -Necrosis Amt None Present (0 %) -Structure Exposed N/A -Texture (Meliza-wound Skin Appearance) Scarring -Moisture (Meliza-wound Skin Appearance) No Abnormality -Color (Meliza-wound Skin Appearance) No Abnormality -Temperature (Meliza-wound Skin No Abnormality Appearance) (Pt Warm) -Ulcer Cleansing Soap and Water -Foul Odor after Cleansing No -Anesthetic Used 4% Lidocaine Solution - Nurse 2 - General Ulcer CM Notes Start: 01/29/23 11:00 Freq: Status: Active Protocol: Activity Type Activity Date Activity User E-sign Co-sign Detail Recorded Client Recorded Date Recorded By Document 01/29/23 11:20 BILLY [id number] 01/29/23 11:27 BILLY 01/29/23 11:20 Wound Center Nurse 2 -Time 11:20 -Correct Patient Yes -Correct Side, Site, Position Yes -Correct Procedure Yes -Procedure Performed Yes -Type of Procedure Debridement -Clinical Debridement Muscle / Fascia -Tissue Removed Muscle,Fascia -Post Debridement (cm) - Length 12 -Post Debridement (cm) - Width 8 -Post Debridement (cm) - Depth 4 -Total Square (Post) (cm) 96 -Area of Debridement (cm) - Length 12 -Area of Debridement (cm) - Width 8 -Total Square (Area) (cm) 96 -Tunneling No -Undermining/Tunneling No -Circular Undermining No -Wound/Ulcer Outcome Not Healed -Ulcer Cleansing Rinsed/ Irrigated with Saline -Foul Odor after Cleansing No -Bioengineered Tissue No -Bleeding Controlled with Pressure -Treatment Response Procedure Tolerated Well -Offloading No -Pressure Reduction Wheelchair cushion -Debridement - Muscle / Fascia, 1st Yes 20sq cm Pain Scale: 0-10 Numeric Is Patient Pain Free? Yes - Nurse 3 - General Ulcer D/C NN Start: 01/29/23 11:00 Freq: Status: Active Protocol: Activity Type Activity Date Activity User E-sign Co-sign Detail Recorded Client Recorded Date Recorded By Document 01/29/23 11:34 [id number] 01/29/23 11:35 01/29/23 11:34 Wound Care Center Nurse 3 #1 left buttucks -Ulcer Cleansing Rinsed/ Irrigated with Saline -Foul Odor after Cleansing No -Other Dressing dakin's -Primary Dressing Covered/Secured with Dry Gauze & Roll Gauze, Secured with Tape Pain Scale: 0-10 Numeric Is Patient Pain Free? Yes - Visit Discharge Discharge Condition Stable Ambulatory Status Wheelchair Transportation Private Auto Accompanied by mom Medication Reconcilliation completed & Yes provided to patient/care provider Clinical Summary of Care Provided Yes Notes: Report to ER Assessment/Plan Assessment/Plan (1) Stage IV pressure ulcer of sacral region: CODE(S): L89.154 - Pressure ulcer of sacral region, stage 4 (2) Spina bifida: CODE(S): Q05.9 - Spina bifida, unspecified (3) Wheelchair dependence: CODE(S): Z99.3 - Dependence on wheelchair (4) Hydrocephalus: CODE(S): G91.9 - Hydrocephalus, unspecified (5) Nausea & vomiting: CODE(S): R11.2 - Nausea with vomiting, unspecified (6) Fever: CODE(S): R50.9 - Fever, unspecified PLAN: Plan Patient was evaluated at the wound healing center today. Wound care - Wound VAC on hold until her receives a new wound VAC. Will start Dakins 0.25% moistened gauze daily. Wash ulcer and meliza wound with soap and water at the time of the dressing change. To his scrotal pressure area, place skin barrier daily to the area to help protect it. Discussed making sure that he is not sitting on his scrotum. Will monitor closely. His mother states that he has been running fevers on and off for the past couple days and has been nausea with vomiting. A wound culture was obtained today.? A positive culture will necessitate antibiotic therapy. Will refer him to the ED for further evaluation of his nausea and vomiting and fevers. Phoned the ED and spoke with Dr. Carranza that I was sending the patient over with his mother for further evaluation. A wound culture was obtained 12/02/22, it was positive for Proteus panneri and Streptococcus group C. He was placed on Levaquin. Erythromycin was added for the Streptococcus. Prealbumin from 07/17/22 was 14.6. Encourage nutritional supplementation with protein to help the healing process. Patient had a colostomy placed at [facility] on September 30, 2022 and is doing well since then. Follow up 2 weeks. Call or come in if develop any concerns. He has a new Roho cushion for his wheelchair. He has a memory foam mattress at home. He states a hospital low air loss bed won't fit into their trailer. His mother states that he never has any red areas or pressure areas when he is in bed. A memory foam mattress is not adequate for a Stage IV pressure sore. When the wound is closed with muscle flaps, a hospital low air loss bed is paramount. Otherwise the memory foam mattress will place extra pressure on the surgical incision, and there is a very high likelihood that the flap would fail. The patient and family are anxious for wound closure. Stressed the importance of control of infection, maximize the nutrition, and have proper low air loss bed before considering wound closure. I anticipate wound closure in 6 months, tentative. Initially will need another excision along with partial ostectomy to evaluate for osteomyelitis. The gluteus apollo V-Y myocutaneous flaps appear to be maximally advanced. Not sure how much advancement I will get for closure even by mobilizing and advancing both gluteus apollo myocutaneous flaps. Vastus lateralis muscular flaps can be used as well. However its blood supply is in the proximal thigh. He has bilateral incisions from previous hip surgery. Don't know preop whether these muscle flaps will be able to be used because of previous surgical dissection that may have compromised the proximal blood supply to the vastus lateralis muscle. So when the muscle is elevated from distal to proximal, there is a chance the muscle won't survive because of compromised proximal blood supply. Ultimately the last resort would be a total thigh flap to provide enough soft tissue to close the pressure sore. The flap necessitates an amputation. The mother stated that they are not in favor of an amputation. The patient may benefit from being evaluated at a tertiary center for possible wound closure with microvascular free tissue transfer if the above mentioned muscles end up being inadequate for complete wound closure. At the time of the excision of the pressure sore in preparation for wound closure with muscle flaps, will check a Prealbumin and send soft tissue and bone to Pathology as well as to Microbiology. A positive culture will necessitate antibiotic therapy, possibly IV.
== END 2023-02-13 23:59 | disposition home or self-care (01) ==
LOC: WC 10:11
PROVIDERS: Visit Provider Nurse Practitioner Family
DX: L89.154 Pressure ulcer of sacral region, stage 4 (principal); Q05.9 Spina bifida, unspecified; R21 Rash and other nonspecific skin eruption; Z98.2 Presence of cerebrospinal fluid drainage device; Z99.3 Dependence on wheelchair; R11.2 Nausea with vomiting, unspecified; R50.9 Fever, unspecified
CPT/HCPCS: 11043; 11046; 87070; 87075; 87077; 87186; 87205

== ENCOUNTER 2023-01-29 11:49 | Inpatient (IN) | payer MEDICARE, MEDICAID, SELFPAY ==
[2023-01-29] VITALS (9 sets, daily range): BP systolic 96–119; BP diastolic 71–84; PULSE 91–125; RESP 14–20; TEMP 36.3–37.6; O2SAT 97–100; BMI 21.6; BMI 20.8
--- NOTE | 2023-01-29 11:59 | EDS_ITS ---
HPI History of Present Illness Chief Complaint: Abscess [facility] Medical History (Updated 01/29/23 @ 13:[address] Julien Carranza, DO) Anxiety Cognitive decline Congenital hip dysplasia Heartburn History of edema Hx of spina bifida Incontinence of bowel Kidney stone Methicillin resistant Staphylococcus epidermidis infection Non-smoker Presence of urostomy Psoriasis Seizures Stage IV pressure ulcer of sacral region Uses wheelchair Ventricular shunt in place Home Medications garlic 500 mg PO DAILY 07/12/22 [History Last Taken Unknown] multivitamin 1 cap PO DAILY 07/12/22 [History Last Taken Unknown] vitamin E 400 unit tablet 45 mg PO DAILY 07/12/22 [History Last Taken Unknown] arginine 7 gram-glutam 7 gram-CaHMB 1.5 [id number] oral pwd pkt (Von (with collagen)) 1 packet PO BIDCM 30 days #60 ea 07/17/22 [Rx Last Taken Unknown] docusate sodium 100 mg capsule (Colace) 100 mg PO DAILY 60 days #60 caps 07/17/22 [Rx Last Taken Unknown] levofloxacin 500 mg tablet 500 mg PO DAILY 21 days #21 tabs 07/17/22 [Rx Last Taken Unknown] oxycodone-acetaminophen 5 mg-325 mg tablet (Percocet) 1 tab PO TID PRN pain (scale score 7-10) 4 days #10 tabs 07/17/22 [Rx Last Taken Unknown] sodium hypochlorite 0.25 % solution (HySept) 1 applic topical DAILY 30 days #1 BOTTLE 07/17/22 [Rx Last Taken Unknown] sulfamethoxazole 800 mg-trimethoprim 160 mg tablet (Bactrim DS) 1 tab PO Q12H 10 days #20 tabs 09/23/22 [Rx Last Taken Unknown] levofloxacin 500 mg tablet 500 mg PO DAILY 14 days #14 tabs 12/10/22 [Rx Last Taken Unknown] erythromycin 500 mg tablet,delayed release 500 mg PO Q12H 10 days #20 tabs 12/17/22 [Rx Last Taken Unknown] Allergy/AdvReac Type Severity Reaction Status Date / Time latex Allergy Hives Verified 01/29/23 11:52 Penicillins Allergy Nausea/Vom/ Verified 01/29/23 11:52 Diarrhea levofloxacin [From Levaquin] AdvReac Mild Nausea/Vom/ Verified 01/29/23 11:52 Diarrhea Surgical History S/P flap graft Social History (Updated 07/08/22 @ 23:[address] Costa Arechiga MD) Smoking Status: Never smoker EXAM Physical Exam Const Vital Signs: 01/29/23 11:50 01/29/23 12:08 Temperature 99.7 F H Temperature Source Oral Pulse Rate 125 H Respiratory Rate 16 Blood Pressure 117/80 Blood Pressure Mean 92 Pulse Ox 100 Oxygen Delivery Method Room Air Room Air [facility] [place] Narrative Medical decision making narrative: HISTORY OF PRESENT ILLNESS: 27-year-old male history of spina bifida, history of colostomy, history of sacral decubitus ulcer presents with his mother with concern for infection. He was seen at wound care prior to arrival. histology specialist ( Angeljessicaerin) was concerned for infection patient felt warm per her report. Notes she debrided the patient's wound and took with culture. State she thinks the patient needs to be evaluated for sepsis. Patient's mother does not think it is his second he was also thinks he has another source of infection. She is concerned about him being dehydrated given nausea and vomiting. States he has not tolerated p.o. for at least 24 hours. any head trauma. She denies any new focal deficits. Notes a cough. Denies any sick contacts. Notes increased ostomy output. REVIEW OF SYSTEMS: Pertinent positives: Fever, nausea vomiting, increased ostomy output Pertinent negatives: Focal weakness, seizures, syncope or chest pain PHYSICAL EXAM: Nursing triage notes reviewed, Vital signs reviewed Constitutional: please see [facility] HENT: MMM Eyes: Pupils equal round and reactive to light, Extraocular muscles intact Neck: No stridor, no JVD, full neck ROM Lungs: Clear to auscultation, No wheezing or rales. No increased work of breathing, no conversational dyspnea, no accessory muscle use, no nasal flaring. No respiratory distress noted Heart: Regular rate and rhythm, No murmurs, No rubs and No gallops, 2+ distal pulses (radial, femoral, posterior tibial) in all extremities Abdomen: Soft, there no obvious tenderness, no pulsatile abdominal masses, o stomy noted with liquid brown output : No CVAT Extremities: No edema Neuro: Alert, oriented to person, place and time, cranial nerves II through XII intact, 5/5 strength in bilateral upper extremities, chronic contractures noted bilateral lower extremities with decreased movement however baseline strength per the patient's caregiver.. Intact sensation to light touch in all extremities, 2+ reflexes bilateral patella tendons. No obvious extremity ataxia. Gait not assessed secondary to chronic condition. Skin: No rash or lesions noted MEDICAL DECISION MAKING: Chief Complaint: Fever, nausea vomiting, dehydration External records reviewed: Reviewed prior inpatient notes, reviewed prior history and physical by Dr. Costa Arechiga Factors affecting care: Hydrocephalus status post [employer] shunt, sacral decubitus ulcer, MRSA infection Social determinants of health: Developmental delay History obtained from others: Patient's mother Consults: Internal medicine, wound care ALL IMAGES (IF OBTAINED) HAVE BEEN PERSONALLY REVIEWED AND INTERPRETED BY MYSELF. EKG with sinus tachycardia, normal axis, no intervals, no STEMI MDM Narrative: Patient was initially tachycardic and borderline febrile I considered the following differential diagnosis: Sepsis, intra-abdominal pathology, sacral osteomyelitis, COVID, flu, pneumonia, UTI, intra-abdominal infection I obtained a broad lab and imaging work-up to further elucidate the etiology the patient's complaints. I obtained an chest x-ray rule out pneumonia, COVID and flu swab, urinalysis to rule out UTI. Also obtain blood cultures lactate and urine culture empirically given patient initial tachycardia and fever. He was treated with Tylenol, fluid bolus and given empiric broad-spectrum antibiotics. Patient's labs were remarkable for evidence of dehydration consistent with nausea vomiting creased ostomy output with hyponatremia, hypokalemia. These were replaced with IV fluids and oral potassium. CBC without evidence of leukocytosis suggestive of no systemic inflammation. Lactate was initially elevated consistent with endorgan hypoperfusion. There are signs of coagulopathy as well. COVID and flu were negative. X-ray showed no evidence of pneumonia. CT scan of the abdomen pelvis showed evidence of chronic sacral osteomyelitis. UA with evidence of UTI. Given these bacterial infectious etiologies were covered by the broad-spectrum antibiotics were given. Given abnormal vital signs signs of sepsis and fever. Patient will be admitted for ongoing antibiotics, await cultures of her wound, urine culture and blood cult ures. The patient and/or family, caregivers express understanding. The patient and/or family, caregivers agrees with the plan. Shared decision making: I will have a discussion with the patient and or visitors regarding risk/benefits of further testing or admission. They will be made aware of of the risk/benefits inherent in this decision they will be given the opportunity to voice understanding. Total critical care time today provided was at least 0 minutes. This excludes separately billable procedures. Critical care time (if documented) is secondary to the patient having high probability of clinically significant/life threatening deterioration in the patient's condition which required my urgent intervention. Lab Data Attestation: I reviewed the patient's lab results. Lab results narrative: CBC without leukocytosis, noted anemia, no thrombocytopenia Coagulopathy noted with elevated PT, PTT BMP with hyponatremia, hypokalemia consistent with history of nausea vomit increased ostomy output, there is no anion gap to suggest endorgan hypoperfusion bicarb is within normal limits on BMP suggesting no metabolic acidosis Lactate elevated consistent with endorgan hypoperfusion CK within normal limits no evidence of rhabdo LFTs show no evidence of hepatobiliary pathology. COVID and flu are negative Labs: Laboratory Results - last 24 hr 01/29/23 01/29/23 12:20 13:45 WBC 10.7 RBC 4.85 Hgb 9.6 L Hct 33.7 L MCV 69.5 L MCH 19.8 L MCHC 28.5 L RDW Std Deviation 46.3 H RDW Coeff of Cathy 18.6 H Plt Count 473 H MPV 8.2 Immature Gran % (Auto) 1.000 H Neut % (Auto) 76.7 H Lymph % (Auto) 13.8 L [place] % (Auto) 8.1 Eos % (Auto) 0.1 Baso % (Auto) 0.3 Absolute Neuts (auto) 8.2 H Absolute Lymphs (auto) 1.47 Nucleated RBC % 0 PT 16.8 H INR 1.4 APTT 44.4 H Sodium 130 L Potassium 3.0 L Chloride 96 L Carbon Dioxide 27.0 Anion Gap 7 BUN 12 Creatinine 0.86 Estim Creat Clear Calc 112.04 Est GFR (MDRD) Af Amer 136 Est GFR (MDRD) Non-Af 112 BUN/Creatinine Ratio 14.0 Glucose 103 Lactic Acid 2.2 H* Calcium 8.4 L Total Bilirubin 0.50 AST 11 L ALT 9 L Alkaline Phosphatase 100 Total Creatine Kinase 24 L Total Protein 7.1 Albumin 2.1 L Globulin 5.0 H Albumin/Globulin Ratio 0.4 L Urine Color Yellow Urine Clarity Sl. Cloudy Urine pH 7.0 Ur Specific [place] 1.010 Urine Protein 30 H Urine Glucose (UA) Normal Urine Ketones 5 H Urine Occult Blood 25 H Urine Nitrite Positive H Urine Bilirubin Negative Urine Urobilinogen Normal Ur Leukocyte Esterase 500 H Radiography Diagnostic Testing: Clinical Impression(s) from Imaging Studies Abdomen/Pelvis CT 01/29/23 12:08 IMPRESSION: 4.7 cm soft tissue ulceration overlying the inferior aspect of the sacrum with changes suggestive chronic osteomyelitis of the distal sacrum. 2 calculi are seen at the base of the urinary bladder. Distended urinary bladder with the deformity of the bladder. Cephalic migration of an altered appearance of the proximal left femur. Electronically Signed: Audie Dozier MD at 13:38 EDT , Chest X-Ray 01/29/23 12:39 IMPRESSION: Normal x-ray examination of the chest. Electronically Signed: Audie Dozier MD at 13:07 EDT , Discharge Plan Triage Chief Complaint: Abscess ED Provider: Julien Carranza Dx/Rx/DC Orders Clinical Impression: Decubitus ulcer of sacral area, Fever, Nausea & vomiting, Acute hyponatremia, Acute hypokalemia Prescriptions: No Action vitamin E 400 unit Tablet 45 mg PO DAILY garlic Capsule 500 mg PO DAILY multivitamin Capsule 1 cap PO DAILY HySept 0.25 % Solution 1 applic topical DAILY 30 Days Qty: 1 0RF Protocol: *Topical Application Instructions APPLICATION INSTRUCTIONS: sacral wound Von (with collagen) 7-7-1.5 gram Powder In Packet 1 packet PO BIDCM 30 Days Qty: 60 1RF levofloxacin 500 mg tablet 500 mg PO DAILY 21 Days Qty: 21 1RF oxycodone-acetaminophen [Percocet] 5-325 mg tablet 1 tab PO TID PRN (Reason: pain (scale score 7-10)) 4 Days Qty: 10 0RF docusate sodium [Colace] 100 mg capsule 100 mg PO DAILY 60 Days Qty: 60 0RF sulfamethoxazole-trimethoprim [Bactrim DS] 800-160 mg tablet 1 tab PO Q12H 10 Days Qty: 20 0RF levofloxacin 500 mg tablet 500 mg PO DAILY 14 Days Qty: 14 1RF erythromycin 500 mg tablet,delayed release (DR/EC) 500 mg PO Q12H 10 Days Qty: 20 2RF Primary Care Provider: Costa Arechiga Referrals: Care Physician,No Primary [Non-Staff] - Disposition Disposition: Acute Care Hospital [facility]
--- NOTE | 2023-01-29 12:08 | EKG12_ITS ---
Test Reason : Blood Pressure : / mmHG Vent. Rate : 122 BPM Atrial Rate : 122 BPM P-R Int : 096 ms QRS Dur : 088 ms QT Int : 304 ms P-R-T Axes : 000 050 034 degrees QTc Int : 433 ms Sinus tachycardia with short RI Otherwise normal ECG Confirmed by NORBERT HORAN ([id number]), technical writer and editor JETHRO ARTEAGA ([id number]) on 01/30/2023 11:25:42 AM Referred By: Confirmed By:NORBERT HORAN
--- NOTE | 2023-01-29 12:08 | CT_ITS ---
STUDY: CT ABDOMEN AND PELVIS WITHOUT CONTRAST REASON FOR EXAM: Male, 27 years old. Sacral ulcer r/o osteomyelitis. SPINA BIFIDA RADIATION DOSAGE (If Supplied By Facility): CTDIvol = ( 6.64 ) mGy, DLP = ( 370.42 ) mGycm TECHNIQUE: Transaxial images were obtained from the dome of the diaphragm to the symphysis pubis without oral contrast, and without intravenous contrast. Sagittal and coronal images were reconstructed. Individualized dose optimization techniques were used for this CT. COMPARISON: Comparison is made with prior CT scan of pelvis dated July 17, 2022. FINDINGS: A right-sided ventriculoperitoneal shunt tube is seen. The catheter is also seen along the left hemidiaphragm. The visualized lung bases are unremarkable. The visualized portions of the heart are within normal limits. Normal liver. Normal gallbladder and extrahepatic biliary system. Normal spleen. Normal pancreas. Normal bilateral adrenal glands. Normal right kidney. 5 mm nonobstructive calculus is seen in the lower pole calyx of the left kidney. Normal visualized stomach. Normal small intestine. A colostomy is seen in the left anterior lower quadrant. The appendix is visualized and appears normal. Normal abdominal aorta. Normal inferior vena cava. There is borderline retroperitoneal lymphadenopathy with enlarged nodes no greater than 10mm in the short axis diameter. 2 calculi are seen in the base of the urinary bladder. The larger measured 6.3 mm. There is a distended urinary bladder. The urinary bladder has a lobulated appearance. This is unchanged. There is a small umbilical hernia containing fat. There is evidence of spina bifida. There is a 4.7 cm soft tissue ulceration overlying the distal portion of the sacrum. This is essentially unchanged. There is sclerosis of the underlying sacrum suggestive of possible chronic osteomyelitis. There is superior migration of the proximal left femur. There is deformity of the proximal left femur with the old fracture of the left femoral head. CT/Abdomen/Pelvis without Cont IMPRESSION: 4.7 cm soft tissue ulceration overlying the inferior aspect of the sacrum with changes suggestive chronic osteomyelitis of the distal sacrum. 2 calculi are seen at the base of the urinary bladder. Distended urinary bladder with the deformity of the bladder. Cephalic migration of an altered appearance of the proximal left femur. Electronically Signed: Audie Dozier MD at 13:38 EDT ,
[2023-01-29 12:37] LABS: Absolute Lymphocyte Count 1.47 X10^3/uL (0.83-4.51); Absolute Neutrophil Count 8.2 X10^3/uL (2.0-7.7); Basophil# 0.03 X10^3/uL; Basophil% 0.3 % (0-1); Eosinophil# 0.01 X10^3/uL; Eosinophils% 0.1 % (0-5); Hematocrit 33.7 % (40-54); Hemoglobin 9.6 g/dL (13.0-16.5); Lymphocyte # 1.47 X10^3/ul (0.83-4.51); Lymphocyte % 13.8 % (19-41); Mean Corp Hgb Conc 28.5 g/dL (32-36); Mean Corpuscular Hgb 19.8 pg (27.0-32.0); Mean Corpuscular Volume 69.5 fL (80-94); Mean Platelet Vol. 8.2 fl (6.2-12.0); Monocyte# 0.87 X10^3/uL; Monocyte% 8.1 % (0-10); NRBC Flagged by Analyzer 0 % (0-5); Neutrophil % 76.7 % (47-70); Platelet Count 473 K/mm3 (150-450); RBC Distribution Width CV 18.6 % (11.6-14.6); RBC Distribution Width SD 46.3 fl (35.1-43.9); Red Blood Count 4.85 M/mm3 (4.6-6.2); White Blood Count 10.7 K/mm3 (4.4-11.0)
--- NOTE | 2023-01-29 12:39 | RAD_ITS ---
STUDY: X-RAY CHEST REASON FOR EXAM: Male, 27 years old. Sepsis TECHNIQUE: Single AP portable view of the chest. COMPARISON: None. FINDINGS: The lungs are clear and expanded. There is no demonstrated pleural abnormality. Normal size heart. Normal mediastinum and cheyanne. Normal visualized pulmonary arteries. Normal visualized aortic arch and descending thoracic aorta. Normal visualized thoracic spine. Normal visualized ribs, clavicles, and shoulders. There is no demonstrated abnormality of the visualized soft tissue structures of the upper abdomen. RAD/Chest 1 View (Portable) IMPRESSION: Normal x-ray examination of the chest. Electronically Signed: Audie Dozier MD at 13:07 EDT ,
[2023-01-29] MEDS: Ondansetron 4 MG/2 ML Vial IV (12:45)
[2023-01-29] MEDS: 0.9% Normal Saline 1,000 ML 999 ML IV ×2 (12:45→14:24)
[2023-01-29] MEDS: Acetaminophen 500 MG Tablet 1000 MG PO (12:45)
[2023-01-29 12:46] LABS: International Normalized Ratio 1.4; Prothrombin Time (Protime)PT. 16.8 SECONDS (11.7-14.9)
[2023-01-29 12:47] LABS: Partial Thromboplast Time 44.4 Seconds (24.1-36.2)
[2023-01-29 12:56] LABS: ALB/GLOB Ratio 0.4 RATIO (0.9-2.4); AST(SGOT) 11 U/L (15-37); Alanine Aminotransfer ALT/SGPT 9 U/L (16-61); Albumin, Serum 2.1 g/dL (3.2-5.0); Alkaline Phosphatase 100 U/L (45-117); Anion Gap 7 (5-15); BUN 12 mg/dL (7-18); CPK Total, Creatine Kinase 24 U/L (39-308); Calcium,Total 8.4 mg/dL (8.5-10.1); Chloride 96 mmol/L (98-107); Creatinine, Serum 0.86 mg/dL (0.70-1.30); EST Glomerular Filtration Rate 112 mL/min (>60); Est Glom Filt Rate - Afr Amer 136 mL/min (>60); Estimated Creatinine Clearance 112.04 ml/min; Glucose 103 mg/dL (74-106); Protein, Total 7.1 g/dL (6.4-8.2); Sodium Level 130 mmol/L (136-145)
[2023-01-29 13:10] LABS: Lactic Acid 2.2 mmol/L (0.4-1.9)
[2023-01-29 13:50] LABS: Mucous, Urine 0 SEEN /hpf (<or=2+); Squamous Epithelial Cells - UA 0 SEEN /hpf (0-5)
[2023-01-29 13:53] LABS: Color, Urine Yellow (Yellow); Glucose, Dipstick Normal (Normal); Ketone-Dipstick 5 mg/dl (Negative); Leukocyte Esterase-Dipstick 500 /ul (Negative); Nitrite-Dipstick Positive (Negative); Occult Blood-Urine 25 /ul (Negative); Protein-Dipstick 30 mg/dl (Negative); Urine Bilirubin Dipstick Negative (Negative); Urine Clarity Sl. Cloudy (Clear); Urine Urobilinogen Normal (Normal)
[2023-01-29 14:01] LABS: Amorphous Sediment 2+; Bacteria 2+ /hpf (None Seen); Red Blood Cells-Urine 0-5 SEEN /hpf (0-5); White Blood Cells 25-50 SEEN /hpf (0-5)
--- NOTE | 2023-01-29 14:14 | NURSING ---
Augusto CLAY UTI, SEPSIS
--- NOTE | 2023-01-29 14:23 | HP.PCM.HOS_ITS ---
HPI - General General Date of Admission: 01/29/23 Date of Service: 01/29/23 Chief Complaint: confusion. fevers. HPI Narrative INESSA ADAMES, is a 27 M who presents with confusion, fever, rigors. Patient had been well up until the past few days where he has been not able to tolerate any oral. He is been getting more confused particularly today was having fevers at home. He was sent to the emergency room where he was noted to be febrile. Patient underwent a work-up including a urinalysis that was concerning for urinary tract infection and patient received cefepime and vancomycin. Patient does have a large decubitus ulcer that is healing on his sacrum. That was recently cultured. Patient is here with his mother who states that his mentation is currently improved. He was confused earlier but that is since resolved. [facility] Medical History Anxiety Cognitive decline Congenital hip dysplasia Heartburn History of edema Hx of spina bifida Incontinence of bowel Kidney stone Methicillin resistant Staphylococcus epidermidis infection Non-smoker Presence of urostomy Psoriasis Seizures Stage IV pressure ulcer of sacral region Uses wheelchair Ventricular shunt in place Home Medications garlic 500 mg PO DAILY 07/12/22 [History Last Taken Unknown] multivitamin 1 cap PO DAILY 07/12/22 [History Last Taken Unknown] vitamin E 400 unit tablet 45 mg PO DAILY 07/12/22 [History Last Taken Unknown] arginine 7 gram-glutam 7 gram-CaHMB 1.5 dudg-hsavf-oz-min oral pwd pkt (Von (with collagen)) 1 packet PO BIDCM 30 days #60 ea 07/17/22 [Rx Last Taken Unknown] docusate sodium 100 mg capsule (Colace) 100 mg PO DAILY 60 days #60 caps 07/17/22 [Rx Last Taken Unknown] levofloxacin 500 mg tablet 500 mg PO DAILY 21 days #21 tabs 07/17/22 [Rx Last Taken Unknown] oxycodone-acetaminophen 5 mg-325 mg tablet (Percocet) 1 tab PO TID PRN pain (scale score 7-10) 4 days #10 tabs 07/17/22 [Rx Last Taken Unknown] sodium hypochlorite 0.25 % solution (HySept) 1 applic topical DAILY 30 days #1 BOTTLE 07/17/22 [Rx Last Taken Unknown] sulfamethoxazole 800 mg-trimethoprim 160 mg tablet (Bactrim DS) 1 tab PO Q12H 10 days #20 tabs 09/23/22 [Rx Last Taken Unknown] levofloxacin 500 mg tablet 500 mg PO DAILY 14 days #14 tabs 12/10/22 [Rx Last Taken Unknown] erythromycin 500 mg tablet,delayed release 500 mg PO Q12H 10 days #20 tabs 12/17/22 [Rx Last Taken Unknown] Allergy/AdvReac Type Severity Reaction Status Date / Time latex Allergy Hives Verified 01/29/23 11:52 Penicillins Allergy Nausea/Vom/ Verified 01/29/23 11:52 Diarrhea levofloxacin [From Levaquin] AdvReac Mild Nausea/Vom/ Verified 01/29/23 11:52 Diarrhea no significant family history Surgical History S/P flap graft Social History (Updated 01/29/23 @ 14:[address] Esa Mccurdy DO) Smoking Status: Never smoker alcohol intake: never substance use type: does not use ROS ROS Narrative Patient does self catheterize through his umbilicus when he feels the need to urinate. His mother states that they have not had any new prescriptions for catheter since the onset of the pandemic. State they have had trouble getting into see a urologist as there is no local urologist that we will see him. Either the urologist only sees females or the urologist does not accept Medicaid . She states that the catheters that he uses are bleached and boiled. All review of systems were negative except as mentioned above in the history of present illness and the other review of systems. Vital Signs Vital Signs Vital Signs: 01/29/23 11:50 01/29/23 12:08 Temperature 37.6 C H Temperature Source Oral Pulse Rate 125 H Respiratory Rate 16 Blood Pressure 117/80 Blood Pressure Mean 92 Pulse Ox 100 Oxygen Delivery Method Room Air Room Air Weight Weight: 62.5 kg Body Mass Index (BMI) 21.6 Physical Exam Const alert and no apparent distress Constitutional Narrative: Up in bed. Nontoxic. HEENT normocephalic, hearing grossly normal bilaterally and oropharynx normal Eyes Eyes Narrative: No icterus Neck no lymphadenopathy Resp normal respiratory effort, no retractions, no use of accessory muscles and clear to auscultation bilaterally Cardio regular rate, regular rhythm, S1 normal heart sound and S2 normal heart sound GI normal to inspection, nondistended, normoactive bowel sounds and soft to palpation GI Narrative: Ostomy in place. Umbilicus reviewed and showed no erythema. Little bit of urine dribbling from the area. Extremity normal to inspection and full ROM Skin Skin Narrative: Large sacral decubitus ulcer that is healing by secondary intention. No foul odor was identified nor any purulent tissue could be clearly identified. Neuro oriented x3 and moves all extremities Sensorium / Orientation: awake and alert Psych affect normal Results Lab / Micro Data Attestation: I reviewed the patient's lab results. 01/29/23 12:20 01/29/23 12:20 Labs: Laboratory Results - last 24 hr 01/29/23 12:20: WBC 10.7, RBC 4.85, Hgb 9.6 L, Hct 33.7 L, MCV 69.5 L, MCH 19.8 L, MCHC 28.5 L, RDW Std Deviation 46.3 H, RDW Coeff of Cathy 18.6 H, Plt Count 473 H, MPV 8.2, Immature Gran % (Auto) 1.000 H, Neut % (Auto) 76.7 H, Lymph % (Auto) 13.8 L, [place] % (Auto) 8.1, Eos % (Auto) 0.1, Baso % (Auto) 0.3, Absolute Neuts (auto) 8.2 H, Absolute Lymphs (auto) 1.47, Nucleated RBC % 0, PT 16.8 H, INR 1.4, APTT 44.4 H, Sodium 130 L, Potassium 3.0 L, Chloride 96 L, Carbon Dioxide 27.0, Anion Gap 7, BUN 12, Creatinine 0.86, Estim Creat Clear Calc 112.04, Est GFR (MDRD) Af Amer 136, Est GFR (MDRD) Non-Af 112, BUN/Creatinine Ratio 14.0, Glucose 103, Lactic Acid 2.2 H*, Calcium 8.4 L, Total Bilirubin 0.50, AST 11 L, ALT 9 L, Alkaline Phosphatase 100, Total Creatine Kinase 24 L, Total Protein 7.1, Albumin 2.1 L, Globulin 5.0 H, Albumin/Globulin Ratio 0.4 L 01/29/23 13:45: Urine Color Yellow, Urine Clarity Sl. Cloudy, Urine pH 7.0, Ur Specific [place] 1.010, Urine Protein 30 H, Urine Glucose (UA) Normal, Urine Ketones 5 H, Urine Occult Blood 25 H, Urine Nitrite Positive H, Urine Bilirubin Negative, Urine Urobilinogen Normal, Ur Leukocyte Esterase 500 H, Urine RBC 0-5 SEEN, Urine WBC 25-50 SEEN, Ur Squamous Epith Cells 0 SEEN, Amorphous Sediment 2+, Urine Bacteria 2+, Urine Mucus 0 SEEN Micro: Microbiology 01/29/23 12:50 Nasal Secretion SARS-CoV-2 & FLU Antigen (Rapid) - Final EKG Initial EKG: Attestation: I personally reviewed and interpreted this EKG as follows: Prior EKG tracings: available for review EKG Rhythm Intrepretation: Sinus Tachycardia Radiology Impression Abdomen/Pelvis CT 01/29/23 12:08 IMPRESSION: 4.7 cm soft tissue ulceration overlying the inferior aspect of the sacrum with changes suggestive chronic osteomyelitis of the distal sacrum. 2 calculi are seen at the base of the urinary bladder. Distended urinary bladder with the deformity of the bladder. Cephalic migration of an altered appearance of the proximal left femur. Electronically Signed: Audie Dozier MD at 13:38 EDT , Chest X-Ray 01/29/23 12:39 IMPRESSION: Normal x-ray examination of the chest. Electronically Signed: Audie Dozier MD at 13:07 EDT , Assessment & Plan Assessment/Plan (1) UTI (urinary tract infection): QUALIFIERS: Urinary tract infection type: catheter-associated UTI Indwelling urinary catheter type: unspecified Encounter type: initial encounter Qualified Code(s): T83.511A - Infection and inflammatory reaction due to indwelling urethral catheter, initial encounter; N39.0 - Urinary tract infection, site not specified PLAN: Acute Patient self catheterizes but has been not using new catheters. He and his mother have been unable to see a local urologist due to either the urologist seeing only females or the urologist not taking Medicaid patients. Patient self catheterizes through his umbilicus Patient received cefepime in the emergency room. We will continue with that on the floor. Urine cultures pending. (2) Metabolic encephalopathy: PLAN: Secondary to the underlying infection Clinically improved at this time. No additional work-up. 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 The patient is functional as far as the patient's mother is aware. Has had it replaced when he was 9 years old as it had to be replaced as he had grown and it needed to be adjusted. No clinical evidence at this time to suggest meningitis. * Spina bifida: VTE prophylaxis: Low molecular weight heparin. Disposition: When anticipate 2 midnight stay in anticipation of the following the urine cultures. Eventual plan is for the patient to return home with his mother. Charges/Coding Visit Charges Inpatient E&M: 36572 Init Hosp L3
[2023-01-29] MEDS: Vancomycin IV 1,000 MG/200 ML BAG 200 MG IV (14:24)
[2023-01-29] MEDS: Potassium Chloride Oral Tablet 20 MEQ 60 MEQ PO (14:26)
[2023-01-29] MEDS: DiphenhydrAMINE 50 MG/ML Syringe IV (15:39)
--- NOTE | 2023-01-29 15:42 | ED.RN ---
pt called out stating he was itchy around his neck and head, areas noted to be red. pt stating he has siriasis. Iv vanc done infusing. Dr. Carranza updated. IV Benadryl ordered and given.
[2023-01-29 16:31] LABS: Reflex Lactate? Y
[2023-01-29 17:38] LABS: Lactic Acid 1.2 mmol/L (0.4-1.9)
[2023-01-29] MEDS: 0.9% Normal Saline 1,000 ML 150 ML IV (17:47)
[2023-01-30 03:35] VITALS: BP 96/52; PULSE 99; RESP 18; TEMP 37; O2SAT 100
[2023-01-30 06:48] LABS: Absolute Lymphocyte Count 1.06 X10^3/uL (0.83-4.51); Absolute Neutrophil Count 4.3 X10^3/uL (2.0-7.7); Basophil# 0.03 X10^3/uL; Basophil% 0.5 % (0-1); Eosinophils% 1.6 % (0-5); Hematocrit 29.7 % (40-54); Hemoglobin 8.3 g/dL (13.0-16.5); Lymphocyte # 1.06 X10^3/ul (0.83-4.51); Lymphocyte % 17.5 % (19-41); Mean Corp Hgb Conc 27.9 g/dL (32-36); Mean Corpuscular Volume 71.6 fL (80-94); Mean Platelet Vol. 8.4 fl (6.2-12.0); Monocyte# 0.49 X10^3/uL; Monocyte% 8.1 % (0-10); NRBC Flagged by Analyzer 0 % (0-5); Neutrophil # 4.29 X10^3/uL (2.7-7.7); Neutrophil % 70.7 % (47-70); Platelet Count 409 K/mm3 (150-450); RBC Distribution Width CV 18.6 % (11.6-14.6); RBC Distribution Width SD 47.8 fl (35.1-43.9); Red Blood Count 4.15 M/mm3 (4.6-6.2); White Blood Count 6.1 K/mm3 (4.4-11.0)
[2023-01-30 07:54] LABS: Anion Gap 9 (5-15); BUN 10 mg/dL (7-18); BUN/Creat Ratio 16.7 RATIO (10-20); Calcium,Total 7.9 mg/dL (8.5-10.1); Chloride 108 mmol/L (98-107); EST Glomerular Filtration Rate 170 mL/min (>60); Est Glom Filt Rate - Afr Amer 205 mL/min (>60); Estimated Creatinine Clearance 155.19 ml/min; Glucose 81 mg/dL (74-106); Potassium 3.2 mmol/L (3.5-5.1); Sodium Level 137 mmol/L (136-145)
[2023-01-30 09:20] VITALS: BP 103/72; PULSE 105; RESP 16; TEMP 37.1; O2SAT 100
[2023-01-30] MEDS: Docusate Sodium 100 MG Capsule PO (09:29)
[2023-01-30] MEDS: Enoxaparin 40 MG/0.4 ML Syringe SC (09:29)
[2023-01-30] MEDS: DAKIN'S SOL HALF STRENGTH (=0.25%) 1 APPLIC TOPICAL (10:08)
--- NOTE | 2023-01-30 10:10 | CASEMGMT ---
Addendum entered by Sophie Peraza 01/30/23 14:11: Pt reports he cannot do a 10am appt. He states it needs to be 2pm or after. RAMILA LONG called back to 's office and changed appt to Mar 27 at 2pm. Pt aware and placed on dc instructions. Original Note: RN MERCEDES Assessment: Face to Face with pt for initial transition planning/care coordination assessment. RN MERCEDES introduced self and role at [facility], pt voices understanding and consents to assessment. Pt is A/O x4 and answers all questions appropriately at this time. Pt sitting up in bed on roho cushion in no distress. Care providers, pharmacy, and demographics verified/updated. Admitting Dx: UTI, sepsis PCP:Pt does not have. Pt wishes for this RAMILA LONG to call his mother to set up PCP for him. He would like her to pick the PCP. Specialists:Geni, wound. Pt sees C every 2 wks. [facility] Pres[facility] Benefit: yes LNOK: Myrna Perez, mother Living Arrangements: Pt lives with mother in a mobile home with a ramp to enter. Pt is able to bathe self. He states his mother assists with dressing and does meals, laundry and grocery shopping. Pt denies concerns at home other than not being able to get catheter supplies. Pt aware once he establishes with PCP, this may be able to happen. Transportation: Pt mother transports pt to medical appts. DME/HHC/SNF: Pt has a w/c, foam mattress, roho cushion and shower chair. Pt denies hx of HHC and states he does not need it now. Pt denies SNF stays. Pt states no concerns with going home at time of dc. TC to pt mother, reviewed list of primary care physicians and mother chose . She is aware appt will be made and pt will be made aware. Pt mother states she does not feel that HHC is needed either as she was a nurse. Pt mother appreciative of the call and denies any questions. Pt states no further concerns/needs. CM to follow. Advised pt to ask CM if any further question/concerns/needs arise, voices understanding. Pt Goal: Home with mother performing dressing changes, obtain PCP. Plan: Home with mother performing dressing changes, set up PCP appt. TC to 's office. Set up appt for Mar 25 at 10am. Pt to arrive 15 min early and bring packet that will be mailed to him. Pt will also need photo ID and insurance card. Notified pt of this information and placed on dc instructions.
--- NOTE | 2023-01-30 10:11 | WOUNDNOTE ---
wound photo: sacrum
--- NOTE | 2023-01-30 10:20 | WOUNDNOTE ---
Pt with colostomy appliance to the left lower abdomen. patient states the appliances are changed about every other day at home. appliance is intact at this time. Pt states he is hoping to be discharged home today or tomorrow. pt did not bring any supplies in from home and does now want this nurse to apply one of the appliances here at the hospital. pt prefers to use his own. states they will change the appliance at home. pt denies further needs at this time.
[2023-01-30 14:35] VITALS: BP 112/71; PULSE 110; RESP 16; TEMP 37.4; O2SAT 97
--- NOTE | 2023-01-30 14:37 | PCM.PN.HOSP ---
Reason for Visit Reason for Visit: Diagnoses Hypo-osmolality and hyponatremia (01/29/23) Hypokalemia (01/29/23) Metabolic encephalopathy (01/29/23) Pressure ulcer of sacral region, stage 4 (01/29/23) Urinary tract infection, site not specified (01/29/23) Infection and inflammatory reaction due to indwelling urethral catheter, initial encounter (01/29/23) Subjective Subjective Seen at bedside. Sitting comfortably in bed, conversing normally, no acute distress. He reports feeling significantly improved today. He denies any pain or discomfort with urination. He states that the ulcer on his buttocks is not causing him significant pain right now. Denies any fevers or chills. No other acute concerns. Objective Data Objective Data Vital Signs: Vital Signs Temp Pulse Resp BP Pulse Ox O2 Del Method 99.3 F H 110 H 16 112/71 97 Room Air 01/30/23 14:35 01/30/23 14:35 01/30/23 14:35 01/30/23 14:35 01/30/23 14:35 01/30/23 14:35 Oxygen Delivery Method Room Air Weight: 60.4 kg Body Mass Index (BMI) 20.8 Intake & Output: Intake and Output for Last 24 Hours 01/28/23 01/29/23 01/30/23 23:59 23:59 23:59 Intake Total 2350 / 2350 1350 / 1350 Output Total 1000 / 1000 Balance 2350 / 2350 350 / 350 Lab / Micro Data Attestation: I reviewed the patient's lab results. 01/30/23 06:13 01/30/23 06:13 Labs: Laboratory Results - last 24 hr 01/29/23 12:20: Magnesium 2.0 01/29/23 17:00: Lactic Acid 1.2 01/30/23 06:13: WBC 6.1, RBC 4.15 L, Hgb 8.3 L, Hct 29.7 L, MCV 71.6 L, MCH 20.0 L, MCHC 27.9 L, RDW Std Deviation 47.8 H, RDW Coeff of Cathy 18.6 H, Plt Count 409, MPV 8.4, Immature Gran % (Auto) 1.600 H, Neut % (Auto) 70.7 H, Lymph % (Auto) 17.5 L, Haakon % (Auto) 8.1, Eos % (Auto) 1.6, Baso % (Auto) 0.5, Absolute Neuts (auto) 4.3, Absolute Lymphs (auto) 1.06, Nucleated RBC % 0, Sodium 137, Potassium 3.2 L, Chloride 108 H, Carbon Dioxide 20.0 L, Anion Gap 9, BUN 10, Creatinine 0.60 L, Estim Creat Clear Calc 155.19, Est GFR (MDRD) Af Amer 205, Est GFR (MDRD) Non-Af 170, BUN/Creatinine Ratio 16.7, Glucose 81, Calcium 7.9 L Micro: Microbiology 01/29/23 13:45 Urine, Catheterized Urine Culture - Preliminary GNR lactose job putter up and ticket preparer 01/29/23 12:50 Nasal Secretion SARS-CoV-2 & FLU Antigen (Rapid) - Final Physical Exam Const alert and oriented x3 Constitutional Narrative: Pleasant young male, mild cognitive delay at baseline, sitting comfortably in bed, conversing normally, no acute distress. General Appearance: cooperative and comfortable HEENT normocephalic, head/scalp atraumatic, hearing grossly normal bilaterally, nasal mucous membranes and turbinates normal and moist oral mucous membranes Eyes PERRL, EOMs intact bilaterally and conjunctivae normal Neck full ROM, no lymphadenopathy and supple Lymph Lymphatic: no lymphadenopathy noted Chest inspection of chest normal Resp normal respiratory effort, normal air movement, no use of accessory muscles and clear to auscultation bilaterally Cardio regular rate, regular rhythm, no murmurs and peripheral pulses 2+ throughout GI normal to inspection, nondistended, normoactive bowel sounds, soft to palpation, non-tender and non-distended Narrative: No suprapubic tenderness to palpation. Back/Spine Back/Spine Narrative: Known changes due to spina bifida. Extremity normal to inspection, full ROM and no pedal edema Skin Skin Narrative: Known stage IV sacral decubitus ulcer. Did not view today as dressing was in place. Psych mental status grossly normal Assessment & Plan Assessment/Plan (1) UTI (urinary tract infection): QUALIFIERS: Urinary tract infection type: catheter-associated UTI Indwelling urinary catheter type: unspecified Encounter type: initial encounter Qualified Code(s): T83.511A - Infection and inflammatory reaction due to indwelling urethral catheter, initial encounter; N39.0 - Urinary tract infection, site not specified (2) Metabolic encephalopathy: (3) Acute hypokalemia: (4) Acute hyponatremia: (5) Decubitus ulcer of sacral area: QUALIFIERS: Pressure injury stage: stage 4 Qualified Code(s): L89.154 - Pressure ulcer of sacral region, stage 4 PLAN: Plan Patient is a 27-year-old male with history significant for spina bifida, stage IV decubitus ulcer of sacral region, wheelchair-bound, colostomy, mild cognitive impairment and seizures who presented to the [facility] ED on 01/29 with confusion, fevers and rigors. 1. Complicated UTI Catheter associated UTI, as patient straight caths himself at home. Per patient and mother, patient has been sterilizing his catheters and reusing them at home because they have been unable to get into see a local urologist. He self catheterizes through his umbilicus. UA showed positive nitrates and leukocyte esterase, with 2+ bacteria seen. Preliminary urine culture results show a gram-negative cynthia lactose job putter up and ticket preparer. CT abdomen pelvis with contrast showed a distended urinary bladder with deformity of the bladder, 2 calculi seen at the base of the urinary bladder, was otherwise unremarkable. -Continue cefepime, will narrow as able. Likely plan for 7-day course. Case management following for assistance in finding appropriate follow-up care once discharged. 2. Stage IV decubitus ulcer of sacral region Known. Had diverting colostomy placed in September 2022 that seems to have aided with minimizing risk of further infection. CT abdomen pelvis on admission showed a 4.7 cm soft tissue ulceration overlying the inferior aspect of the sacrum with changes suggestive of chronic osteomyelitis of the distal sacrum. -Wound care following, appreciate assistance. Scheduled turns in bed by nursing. Continue outpatient follow-up. Have low concern that patient's current infection is secondary to this ulcer. 3. Hypokalemia, improving ? Likely secondary to potassium wasting in setting of UTI as noted above, versus potassium wasting through colostomy. Replete as needed 4. Hyponatremia, improved ? Likely secondary to dehydration on admission. Sodium 130 in the ED, improved to 137 with IV fluids. Monitor. 5. Chronic microcytic anemia ? Unclear etiology. May be secondary to iron deficiency versus anemia of chronic disease. Hemoglobin 9.6 on admission, dropped to 8.3 after IV fluids. No sources of bleeding noted. Will obtain iron studies. Monitor CBC. 6. History of spina bifida, wheelchair-bound at baseline ?Lives with his mother at home. Has assistance with activities at home as needed. No need for home health care on discharge. DVT prophylaxis: Lovenox CODE STATUS: Full code, unverified Expected disposition: Home, 1 to 2 days Total clinical time spent by myself addressing the patient's medical issues, reviewing all the data, and collaborating with patient's care team: 35 minutes. Charges/Coding Visit Charges Inpatient E&M: 41207 Subs Hosp L2
[2023-01-30 15:40] LABS: Ferritin 192 ng/mL (26-388); Iron 12 ug/dL (65-175); Iron Binding Capacity,Total 196 ug/dL (250-450); PERCENT IRON SATURATION 6.1 % (15.0-55.0)
[2023-01-31 03:31] VITALS: BP 104/64; PULSE 89; RESP 16; TEMP 36.9; O2SAT 100
[2023-01-31] MEDS: Calcium Carbonate 500 MG Tablet PO (06:57)
[2023-01-31] MEDS: Docusate Sodium 100 MG Capsule PO (06:57)
[2023-01-31 08:43] LABS: Hematocrit 32.4 % (40-54); Hemoglobin 9.1 g/dL (13.0-16.5); Mean Corp Hgb Conc 28.1 g/dL (32-36); Mean Corpuscular Volume 71.2 fL (80-94); Mean Platelet Vol. 8.2 fl (6.2-12.0); Platelet Count 385 K/mm3 (150-450); RBC Distribution Width CV 18.6 % (11.6-14.6); Red Blood Count 4.55 M/mm3 (4.6-6.2)
[2023-01-31 09:14] VITALS: BP 96/63; PULSE 95; RESP 16; TEMP 37.8; O2SAT 99
[2023-01-31 09:32] LABS: Anion Gap 5 (5-15); BUN 11 mg/dL (7-18); BUN/Creat Ratio 20.3 RATIO (10-20); Calcium,Total 8.2 mg/dL (8.5-10.1); Chloride 106 mmol/L (98-107); Creatinine, Serum 0.54 mg/dL (0.70-1.30); EST Glomerular Filtration Rate 190 mL/min (>60); Est Glom Filt Rate - Afr Amer 230 mL/min (>60); Estimated Creatinine Clearance 172.44 ml/min; Glucose 86 mg/dL (74-106); Potassium 3.2 mmol/L (3.5-5.1); Sodium Level 137 mmol/L (136-145)
[2023-01-31] MEDS: DAKIN'S SOL HALF STRENGTH (=0.25%) 1 APPLIC TOPICAL (09:36)
[2023-01-31] MEDS: Enoxaparin 40 MG/0.4 ML Syringe SC (09:38)
[2023-01-31] MEDS: Ferrous Sulfate 325 MG Tablet PO (11:57)
--- NOTE | 2023-01-31 13:12 | DCINST_ITS ---
Discharge Instructions Diet Discharge Diet: No restrictions Activity Discharge Activity: Return to Normal Activity Weight Bearing Status: Weight bearing as tolerated Follow Up Care Test Results: Test results from this visit will be discussed in further detail at your follow- up appointment, if applicable. Pending Tests Upon Discharge: None Discharge Plan Admission Admit Date/Time: 01/29/23 14:15 Primary Reason for Your Visit: UTI Attending Provider: Jimmy Lemus Primary Care Provider: Lucia Parmar Consulting Providers: Esa Mccurdy Instructions Additional Instructions / Restrictions: Please complete 6 more days of ciprofloxacin twice daily to complete a 7-day course of antibiotics for your urinary tract infection. Also please start taking iron pills daily for your iron deficiency anemia. Please follow-up with your new primary care provider when scheduled. Discharge Orders/Prescriptions Prescriptions: New ferrous sulfate [FeroSul] 325 mg (65 mg iron) Tablet 325 mg PO DAILY@1200 90 Days Qty: 90 0RF ciprofloxacin HCl 500 mg tablet 500 mg PO BID 6 Days Qty: 12 0RF Referrals / Follow Up: Lucia Parmar MD [Primary Care Provider] - 03/27/23 2:00 pm (You will be mailed a packet from the doctor office. Please bring this with you to your appoi ntment and arrive 15 minutes early. Please bring a photo ID and insurance card as well. ) Care Physician,No Primary [Non-Staff] - Disposition Disposition (needs filled in before D/C Order can be placed): Home, Self Care
--- NOTE | 2023-01-31 13:17 | PCM.DC.SUM ---
Providers Date of Admission: 01/29/23 Date of Discharge: 01/31/23 Primary Care Physician: Dr. Lucia Parmar MD Consultations 01/29/23 17:20 Consult: Onc/Wound/dental hygiene instructor Routine Comment: Reason For Visit: UTI, SEPSIS Diagnosis Discharge Diagnosis (1) UTI (urinary tract infection): Status: Acute Code(s): N39.0 - Urinary tract infection, site not specified Qualifiers: Encounter type: initial encounter Indwelling urinary catheter type: unspecified Urinary tract infection type: catheter-associated UTI Qualified Code(s): T83.511A - Infection and inflammatory reaction due to indwelling urethral catheter, initial encounter; N39.0 - Urinary tract infection, site not specified (2) Metabolic encephalopathy: Status: Acute Code(s): G93.41 - Metabolic encephalopathy (3) Acute hypokalemia: Status: Acute Code(s): E87.6 - Hypokalemia (4) Acute hyponatremia: Status: Acute Code(s): E87.1 - Hypo-osmolality and hyponatremia (5) Decubitus ulcer of sacral area: Status: Acute Code(s): L89.159 - Pressure ulcer of sacral region, unspecified stage Qualifiers: Pressure injury stage: stage 4 Qualified Code(s): L89.154 - Pressure ulcer of sacral region, stage 4 Plan Patient is a 27-year-old male with history significant for spina bifida, 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 1. Complicated UTI Catheter associated UTI, as patient straight caths himself at home. Per patient and mother, patient has been sterilizing his catheters and reusing them at home because they have been unable to get into see a local urologist. He self catheterizes through his umbilicus. UA showed positive nitrates and leukocyte esterase, with 2+ bacteria seen. Preliminary urine culture results show a gram-negative cynthia lactose mba internship. CT abdomen pelvis with contrast showed a distended urinary bladder with deformity of the bladder, 2 calculi seen at the base of the urinary bladder, was otherwise unremarkable. -Continue cefepime, will narrow as able. Likely plan for 7-day course. Case management following for assistance in finding appropriate follow-up care once discharged. 2. Stage IV decubitus ulcer of sacral region Known. Had diverting colostomy placed in September 2022 that seems to have aided with minimizing risk of further infection. CT abdomen pelvis on admission showed a 4.7 cm soft tissue ulceration overlying the inferior aspect of the sacrum with changes suggestive of chronic osteomyelitis of the distal sacrum. -Wound care following, appreciate assistance. Scheduled turns in bed by nursing. Continue outpatient follow-up. Have low concern that patient's current infection is secondary to this ulcer. 3. Hypokalemia, improving ? Likely secondary to potassium wasting in setting of UTI as noted above, versus potassium wasting through colostomy. Replete as needed 4. Hyponatremia, improved ? Likely secondary to dehydration on admission. Sodium 130 in the ED, improved to 137 with IV fluids. Monitor. 5. Chronic microcytic anemia ? Unclear etiology. May be secondary to iron deficiency versus anemia of chronic disease. Hemoglobin 9.6 on admission, dropped to 8.3 after IV fluids. No sources of bleeding noted. Will obtain iron studies. Monitor CBC. 6. History of spina bifida, wheelchair-bound at baseline ?Lives with his mother at home. Has assistance with activities at home as needed. No need for home health care on discharge. DVT prophylaxis: Lovenox CODE STATUS: Full code, unverified Expected disposition: Home, 1 to 2 days Total clinical time spent by myself addressing the patient's medical issues, reviewing all the data, and collaborating with patient's care team: 35 minutes. Medications at Discharge Home Medications ciprofloxacin HCl 500 mg tablet 500 mg PO BID 6 days #12 tabs 01/31/23 ferrous sulfate 325 mg (65 mg iron) tablet (FeroSul) 325 mg PO DAILY@1200 90 days #90 tabs 01/31/23 Hospital Course Operations None Procedures - (Chest x-ray, CT abdomen pelvis with IV contrast) Summary of Care Provided Minutes Spent on Discharge: 38 Hospital Course: Patient is a 27-year-old male with history significant for spina bifida, 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 Discharge diagnoses: Complicated UTI Stage IV decubitus ulcer of sacral region Hypokalemia, improved Hyponatremia, improved Chronic microcytic anemia History of spina bifida, wheelchair-bound at baseline PCP follow-up: Completing 7-day course of ciprofloxacin on discharge. Will need ample catheter supplies at home. We will also need continued close monitoring of his stage IV sacral ulcer going forward. Total clinical time spent by myself addressing the patient's discharge needs: 38 minutes. Physical Exam Const alert and oriented x3 Constitutional Narrative: Pleasant young male, mild cognitive delay at baseline, sitting comfortably in bed, conversing normally, no acute distress. General Appearance: cooperative and comfortable HEENT normocephalic, head/scalp atraumatic, hearing grossly normal bilaterally, nasal mucous membranes and turbinates normal and moist oral mucous membranes Eyes PERRL, EOMs intact bilaterally and conjunctivae normal Neck full ROM, no lymphadenopathy and supple Lymph Lymphatic: no lymphadenopathy noted Chest inspection of chest normal Resp normal respiratory effort, normal air movement, no use of accessory muscles and clear to auscultation bilaterally Cardio regular rate, regular rhythm, no murmurs and peripheral pulses 2+ throughout GI normal to inspection, nondistended, normoactive bowel sounds, soft to palpation, non-tender and non-distended Narrative: No suprapubic tenderness to palpation. Back/Spine Back/Spine Narrative: Known changes due to spina bifida. Extremity normal to inspection, full ROM and no pedal edema Skin Skin Narrative: Known stage IV sacral decubitus ulcer. Did not view today as dressing was in place. Psych mental status grossly normal Weight / BMI Weight Weight: 60.4 kg Body Mass Index (BMI) 20.8 ABG / Lab / Microbiology Data 01/31/23 08:35 01/31/23 08:35 Laboratory: Laboratory Results - last 24 hr 01/30/23 06:13: Iron 12 L, TIBC 196 L, Iron Saturation 6.1 L, Ferritin 192 01/31/23 08:35: WBC 5.0, RBC 4.55 L, Hgb 9.1 L, Hct 32.4 L, MCV 71.2 L, MCH 20.0 L, MCHC 28.1 L, RDW Std Deviation 47.0 H, RDW Coeff of Cathy 18.6 H, Plt Count 385, MPV 8.2, Sodium 137, Potassium 3.2 L, Chloride 106, Carbon Dioxide 26.0, Anion Gap 5, BUN 11, Creatinine 0.54 L, Estim Creat Clear Calc 172.44, Est GFR (MDRD) Af Amer 230, Est GFR (MDRD) Non-Af 190, BUN/Creatinine Ratio 20.3 H, Glucose 86, Calcium 8.2 L Microbiology: Microbiology 01/29/23 12:50 Blood Culture (Wb) - Anticubital Left Blood Culture - Preliminary No growth in 48 hours. 01/29/23 12:20 Blood Culture (Wb) - Anticubital Left Blood Culture - Preliminary No growth in 48 hours. 01/29/23 13:45 Urine, Catheterized Urine Culture - Final Escherichia coli 01/29/23 12:50 Nasal Secretion SARS-CoV-2 & FLU Antigen (Rapid) - Final D/C Instructions Discharge Diet: No restrictions Weight Bearing Status: Weight bearing as tolerated Pending Tests Upon Discharge: None Meaningful Use Info Meaningful Use Diagnoses (Choose all that apply): None applicable Discharge Plan Admission Admit Date/Time: 01/29/23 14:15 Primary Reason for Your Visit: UTI Attending Provider: Jimmy Lemus Primary Care Provider: Lucia Parmar Consulting Providers: Esa Mccurdy Instructions Additional Instructions / Restrictions: Please complete 6 more days of ciprofloxacin twice daily to complete a 7-day course of antibiotics for your urinary tract infection. Also please start taking iron pills daily for your iron deficiency anemia. Please follow-up with your new primary care provider when scheduled. Discharge Orders/Prescriptions Prescriptions: New ferrous sulfate [FeroSul] 325 mg (65 mg iron) Tablet 325 mg PO DAILY@1200 90 Days Qty: 90 0RF ciprofloxacin HCl 500 mg tablet 500 mg PO BID 6 Days Qty: 12 0RF Referrals / Follow Up: Lucia Parmar MD [Primary Care Provider] - 03/27/23 2:00 pm (You will be mailed a packet from the doctor office. Please bring this with you to your appointment and arrive 15 minutes early. Please bring a photo ID and insurance card as well. ) Care Physician,No Primary [Non-Staff] - Disposition Disposition (needs filled in before D/C Order can be placed): Home, Self Care Charges/Coding Visit Charges Inpatient E&M: 43393 Disch Hosp >30min
[2023-01-31 13:49] VITALS: BP 94/58; PULSE 95; RESP 16; TEMP 37.1; O2SAT 100
== END 2023-01-31 17:41 | disposition home or self-care (01) | DRG 698 ==
LOC: ED 14:16 → MS3 15:03
PROVIDERS: Emergency Provider Emergency Medicine; PCP Internal Medicine; Visit Provider Hospitalist
DX: T83.518A Infection and inflammatory reaction due to other urinary catheter, initial encounter (principal); G93.41 Metabolic encephalopathy; L89.154 Pressure ulcer of sacral region, stage 4; Q05.4 Unspecified spina bifida with hydrocephalus; E87.1 Hypo-osmolality and hyponatremia; N39.0 Urinary tract infection, site not specified; D50.9 Iron deficiency anemia, unspecified; Z98.2 Presence of cerebrospinal fluid drainage device; N32.89 Other specified disorders of bladder; Z99.3 Dependence on wheelchair; Z86.14 Personal history of Methicillin resistant Staphylococcus aureus infection
CPT/HCPCS: 11043; 11046; 36415; 71045; 74176; 80048; 80053; 81001; 82550; 82728; 83540; 83550; 83605; 83735; 85025; 85027; 85610; 85730; 87040; 87070; 87075; 87077; 87086; 87088; 87186; 87205; 87428; 93005; 97802; 99285; J7030; J7050; A4216; J2405

== ENCOUNTER 2023-04-02 09:29 | Outpatient (RCR) | payer MEDICARE, MEDICAID, SELFPAY ==
[2023-02-14 00:14] VITALS: BP 120/74; PULSE 126; RESP 20; TEMP 37.4; BMI 23.7
[2023-04-02 09:50] VITALS: BP 121/73; PULSE 116; RESP 18; TEMP 36.1; BMI 23.7
--- NOTE | 2023-04-02 11:58 | PCM.WC.PN ---
History of Present Illness Date of Service: 04/02/23 Chief Complaint: Recurrent left sacral pressure sore, Stage IV. History of Wound: 27 year old man with a history of Spina bifida presented to the Wound Center with a recurrent left sacral pressure sore that started a couple of months ago according to the patient. He bumped his buttocks sometime during the summer and did not tell his mother until it was infected and draining. He initially went to [facility] in April,, and was hospitalized 3 days for IV antibiotics with Meropenem and Clindamycin. Also received a dose of Vancomycin in the ED and had a skin rash. CT showed a rim-enhancing perirectal fluid collection measuring 3.9 x 6.2 cm, compatible with an abscess. He was transferred to [facility] where an I&D was performed. He has a history of Spina bifida which he has had bilateral hip surgery for hip dysplasia at age 8 and another surgery on legs bilaterally to help him wear braces to stand, which he never has been able to do. He had a sacral muscle flap at age 14 at [facility] for an ulcer. Also has a history of hydrocephalous with a shunt. Surgery 07/16/22 - Excision recurrent left sacral pressure sore, Stage IV, with partial ostectomy for osteomyelitis. Operative tissue and bone cultures positive for Enterobacter cloacae complex and he is on Levaquin. Consult placed for diverting colostomy but it was recommended the patient be referred to a tertiary center due to his [employer]END[employer] shunt and urinary conduit. Wound care - Wound VAC at 150 mmHg to be changed 3 times per week. Wound culture from 06/03/22 positive for Bacillus sp. no anthracis and MRSE. He was started on Levaquin. Today denies fever. His appetite is ok. Progress of Wound: The left sacral pressure sore, Stage IV is healing with good granulation tissue. There is palpable bone but not exposed. He ended up hospitalized after his last visit on 01/29/23. He also was admitted to [place] in February for a seizure. His mom states they have not been using the wound VAC because they couldn't keep a seal. She has been using Dakins moistened gauze. Objective Data Objective Data Vital Signs: Vital Signs Temp Pulse Resp BP 97 F L 116 H 18 121/73 H 04/02/23 09:50 04/02/23 09:50 04/02/23 09:50 04/02/23 09:50 Weight: 175 lb Body Mass Index (BMI) 23.7 Charges/Coding Procedures Integumentary 111xxx-113xx: 79649 Camelia musc/fascia 20 sq cm/< Add On Codes: 85352 Camelia musc/fascia add-on (x6) Debridement Note Debridement Note Wound debrided: #1 Sacral area. Laterality: Not Applicable Wound Grade/Stage: IV. Type of Debridement: Excisional debridement Anesthesia Used: 4% Lidocaine Solution Depth: Down to and including healthy tissue, in the subcutaneous layer, to muscle and to bone (bone is palpable but not exposed and not debrided.) Percentage of wound debrided: 100 Instrument Used: 7mm curette Tissue Removed: subcutaneous tissue and muscle. Severity: Fat Layer Exposed (muscle is exposed. bone is palpable but not exposed and not debrided.) Amount of bleeding with debridement: Mild Bleeding Controlled with: Pressure and Compression and gauze Patient tolerated procedure: Patient tolerated procedure well Debridement Free Text: Ulcer into the muscle with bone covered but palpable. Post-Debridement Measurements and Additional Note: Post-Debridement Measurements/Treatment - Nurse 1 - General Ulcer Assessment Start: 04/02/23 09:50 Freq: Status: Active Protocol: ANDREW Activity Type Activity Date Activity User E-sign Co-sign Detail Recorded Client Recorded Date Recorded By Document 04/02/23 09:50 DL Desktop 04/02/23 09:57 DL 04/02/23 09:50 - Today's Visit Information Type of service Follow-up Visit (Physician/SECOND SHIFT SUPERVISOR ) Arrival Mode Wheelchair Transfer Assistance Manual Transfer Assist (Other) x1 Patient Identification Verified (Name & Yes ) Patient Requires Transmission-Based No Precautions Height and Weight Body Mass Index (BMI) 23.7 BMI Classification Normal Vital Signs Temperature (97.8 F-99.1 F) 97 F L Temperature Source Temporal Pulse Rate (60-100) 116 H Pulse Location Monitor Respiratory Rate (12-18) 18 Respiratory rate source Observation Blood Pressure (90/60-120/80) 121/73 H Blood Pressure Mean (mm Hg) 89 Source Monitor History Since Last Visit- (Skip if this is Patient's initial visit) Have you changed medications since your No last visit? Any new allergies or adverse reactions No Had a fall/change in ADL's that may No increase risk of falls Signs or symptoms of abuse and/or No neglect since last visit Have you been in the hospital since your No last visit? Has dressing in place as prescribed Yes Has compression in place as prescribed N/A Has offloadiing in place as prescribed Yes Experienced any changes in pain level or No management Pain Scale: 0-10 Numeric Is Patient Pain Free? Yes WC - Nurse 1 - General Ulcer Measurement Start: 04/02/23 09:50 Freq: Status: Active Protocol: Activity Type Activity Date Activity User E-sign Co-sign Detail Recorded Client Recorded Date Recorded By Document 04/02/23 09:50 DL Desktop 04/02/23 09:57 DL 04/02/23 09:50 Wound Center Nurse 1 #1 left buttucks -Current Size (cm) - Length 11.5 -Current Size (cm) - Width 8.5 -Current Size (cm) - Depth 3.2 -Total Square Cm 97.75 -Photo Taken Yes -Undermining/Tunneling Yes -Undermining/Tunneling Starts (O'clock 9 ) -Undermining/Tunneling Ends (O'clock) 4 -Maximum Distance (cm) 5.4 -Exudate Amt Large -Exudate Type Serosanguineous -Wound Margin Distinct, Outline Attached -Granulation Amt Large (67-100%) -Granulation Quality Becker,Red -Necrosis Amt Small (1-33%) -Necrotic Tissue Type Adherent Slough -Texture (Meliza-wound Skin Appearance) Assessed -Moisture (Meliza-wound Skin Appearance) Assessed -Color (Meliza-wound Skin Appearance) Assessed -Temperature (Meliza-wound Skin No Abnormality Appearance) (Pt Warm) -Ulcer Cleansing Soap and Water -Foul Odor after Cleansing No -Anesthetic Used 4% Lidocaine Solution Lower Limb Edema Present NA WC - Nurse 2 - General Ulcer CM Notes Start: 04/02/23 09:50 Freq: Status: Active Protocol: Activity Type Activity Date Activity User E-sign Co-sign Detail Recorded Client Recorded Date Recorded By Document 04/02/23 10:13 JF Laptop 04/02/23 10:20 JF 04/02/23 10:13 Wound Center Nurse 2 #1 left buttucks -Time 10:14 -Correct Patient Yes -Correct Side, Site, Position Yes -Correct Procedure Yes -Procedure Performed Yes -Type of Procedure Debridement -Clinical Debridement Muscle / Fascia -Tissue Removed Muscle -Post Debridement (cm) - Length 14 -Post Debridement (cm) - Width 9.3 -Post Debridement (cm) - Depth 2.9 -Total Square (Post) (cm) 130.2 -Area of Debridement (cm) - Length 14.0 -Area of Debridement (cm) - Width 9.3 -Total Square (Area) (cm) 130.20 -Tunneling No -Undermining/Tunneling Yes -Undermining/Tunneling Starts (O'clock 12 ) -Undermining/Tunneling Ends (O'clock) 5 -Maximum Distance (cm) 7 -Circular Undermining No -Wound/Ulcer Outcome Not Healed -Ulcer Cleansing Rinsed/ Irrigated with Saline -Foul Odor after Cleansing No -Bioengineered Tissue No -Bleeding Controlled with Pressure -Treatment Response Procedure Tolerated Well -Offloading No -Pressure Reduction Wheelchair cushion -Debridement - Muscle / Fascia, 1st Yes 20sq cm -Debridement, Muscle/Fascia, ea addt'l 6 20sq cm or part thereof Pain Scale: 0-10 Numeric Is Patient Pain Free? Yes - Nurse 3 - General Ulcer D/C NN Start: 04/02/23 09:50 Freq: Status: Active Protocol: Activity Type Activity Date Activity User E-sign Co-sign Detail Recorded Client Recorded Date Recorded By Document 04/02/23 10:35 KW Desktop 04/02/23 10:35 KW 04/02/23 10:35 Wound Care Center Nurse 3 #1 left buttucks -Ulcer Cleansing Rinsed/ Irrigated with Saline -Primary Dressing Applied Hysept ($) -Primary Dressing Covered/Secured with Dry Gauze, Secured with Tape Pain Scale: 0-10 Numeric Is Patient Pain Free? Yes - Visit Discharge Discharge Condition Stable Ambulatory Status Wheelchair Transportation Private Auto Medication Reconcilliation completed & No provided to patient/care provider Clinical Summary of Care Provided Yes Assessment/Plan Assessment/Plan (1) Stage IV pressure ulcer of sacral region: CODE(S): L89.154 - Pressure ulcer of sacral region, stage 4 (2) Spina bifida: CODE(S): Q05.9 - Spina bifida, unspecified QUALIFIERS: Spinal region: lumbosacral Presence of hydrocephalus: with hydrocephalus Qualified Code(s): Q05.2 - Lumbar spina bifida with hydrocephalus (3) Wheelchair dependence: CODE(S): Z99.3 - Dependence on wheelchair (4) Hydrocephalus: CODE(S): G91.9 - Hydrocephalus, unspecified QUALIFIERS: Hydrocephalus type: unspecified Qualified Code(s): G91.9 - Hydrocephalus, unspecified (5) Nausea & vomiting: CODE(S): R11.2 - Nausea with vomiting, unspecified (6) Fever: CODE(S): R50.9 - Fever, unspecified PLAN: Plan Patient was evaluated at the wound healing center today. Wound care - Discontinue Wound VAC. Dakins 0.25% moistened gauze daily. Wash ulcer and meliza wound with soap and water at the time of the dressing change. A wound culture was obtained 12/02/22, it was positive for Proteus panneri and Streptococcus group C. He was placed on Levaquin. Erythromycin was added for the Streptococcus. Prealbumin from 07/17/22 was 14.6. Encourage nutritional supplementation with protein to help the healing process. Patient had a colostomy placed at [facility] on September 30, 2022 and is doing well since then. Wound culture from 01/29/23 positive for Pseudomonas aeroginosa #1 and #2 and Staphylococcus hominis hominis. He was treated with Cipro. Follow up 3 weeks. Call or come in if develop any concerns. He has a new Roho cushion for his wheelchair. He has a memory foam mattress at home. He states a hospital low air loss bed won't fit into their trailer. His mother states that he never has any red areas or pressure areas when he is in bed. A memory foam mattress is not adequate for a Stage IV pressure sore. When the wound is closed with muscle flaps, a hospital low air loss bed is paramount. Otherwise the memory foam mattress will place extra pressure on the surgical incision, and there is a very high likelihood that the flap would fail. The patient and family are anxious for wound closure. Stressed the importance of control of infection, maximize the nutrition, and have proper low air loss bed before considering wound closure. I anticipate wound closure in 6 months, tentative. Initially will need another excision along with partial ostectomy to evaluate for osteomyelitis. The gluteus apollo V-Y myocutaneous flaps appear to be maximally advanced. Not sure how much advancement I will get for closure even by mobilizing and advancing both gluteus apollo myocutaneous flaps. Vastus lateralis muscular flaps can be used as well. However its blood supply is in the proximal thigh. He has bilateral incisions from previous hip surgery. Don't know preop whether these muscle flaps will be able to be used because of previous surgical dissection that may have compromised the proximal blood supply to the vastus lateralis muscle. So when the muscle is elevated from distal to proximal, there is a chance the muscle won't survive because of compromised proximal blood supply. Ultimately the last resort would be a total thigh flap to provide enough soft tissue to close the pressure sore. The flap necessitates an amputation. The mother stated that they are not in favor of an amputation. The patient may benefit from being evaluated at a tertiary center for possible wound closure with microvascular free tissue transfer if the above mentioned muscles end up being inadequate for complete wound closure. At the time of the excision of the pressure sore in preparation for wound closure with muscle flaps, will check a Prealbumin and send soft tissue and bone to Pathology as well as to Microbiology. A positive culture will necessitate antibiotic therapy, possibly IV.
== END 2023-04-15 23:59 | disposition home or self-care (01) ==
LOC: WC 09:29
PROVIDERS: PCP Internal Medicine; Visit Provider Nurse Practitioner Family
DX: L89.154 Pressure ulcer of sacral region, stage 4 (principal); Q05.2 Lumbar spina bifida with hydrocephalus; Z98.2 Presence of cerebrospinal fluid drainage device; R11.2 Nausea with vomiting, unspecified; R50.9 Fever, unspecified; Z99.3 Dependence on wheelchair
CPT/HCPCS: 11043; 11046

== ENCOUNTER 2023-04-23 09:22 | Outpatient (RCR) | payer MEDICARE, MEDICAID, SELFPAY ==
[2023-04-16 00:07] VITALS: BP 121/73; PULSE 116; RESP 18; TEMP 36.1; BMI 23.7
[2023-04-23 09:25] VITALS: BP 115/71; PULSE 106; TEMP 36.2; BMI 23.7
--- NOTE | 2023-04-23 16:07 | PCM.WC.PN ---
History of Present Illness Date of Service: 04/23/23 Chief Complaint: Recurrent left sacral pressure sore, Stage IV. History of Wound: 27 year old man with a history of Spina bifida presented to the Wound Center with a recurrent left sacral pressure sore that started a couple of months ago according to the patient. He bumped his buttocks sometime during the summer and did not tell his mother until it was infected and draining. He initially went to [facility] in April,, and was hospitalized 3 days for IV antibiotics with Meropenem and Clindamycin. Also received a dose of Vancomycin in the ED and had a skin rash. CT showed a rim-enhancing perirectal fluid collection measuring 3.9 x 6.2 cm, compatible with an abscess. He was transferred to [facility] where an I&D was performed. He has a history of Spina bifida which he has had bilateral hip surgery for hip dysplasia at age 8 and another surgery on legs bilaterally to help him wear braces to stand, which he never has been able to do. He had a sacral muscle flap at age 14 at [facility] for an ulcer. Also has a history of hydrocephalous with a shunt. Surgery 07/16/22 - Excision recurrent left sacral pressure sore, Stage IV, with partial ostectomy for osteomyelitis. Operative tissue and bone cultures positive for Enterobacter cloacae complex and he is on Levaquin. Consult placed for diverting colostomy but it was recommended the patient be referred to a tertiary center due to his DIRECTOR [employer]ACE[employer] shunt and urinary conduit. Wound care - Wound VAC at 150 mmHg to be changed 3 times per week. Wound culture from 06/03/22 positive for Bacillus sp. no anthracis and MRSE. He was started on Levaquin. Today denies fever. His appetite is ok. Progress of Wound: The left sacral pressure sore, Stage IV into the muscle, the bone is palpable but not exposed. There is circumferential undermining with the deepest area at 9 o'clock. Objective Data Objective Data Vital Signs: Vital Signs Temp Pulse Resp BP O2 Del Method 97.1 F L 106 H 18 115/71 Room Air 04/23/23 09:25 04/23/23 09:25 04/16/23 00:07 04/23/23 09:25 04/23/23 09:25 Oxygen Delivery Method Room Air Weight: 175 lb Body Mass Index (BMI) 23.7 Charges/Coding Procedures Integumentary 111xxx-113xx: 34769 Camelia musc/fascia 20 sq cm/< Add On Codes: 46733 Camelia musc/fascia add-on (x4) Debridement Note Debridement Note Wound debrided: #1 Sacral area. Laterality: Not Applicable Wound Grade/Stage: IV. Type of Debridement: Excisional debridement Anesthesia Used: 4% Lidocaine Solution Depth: Down to and including healthy tissue, in the subcutaneous layer, to muscle and to bone (bone is palpable but not exposed and not debrided.) Percentage of wound debrided: 100 Instrument Used: 7mm curette Tissue Removed: subcutaneous tissue and muscle. Severity: Fat Layer Exposed (muscle is exposed. bone is palpable but not exposed and not debrided.) Amount of bleeding with debridement: Mild Bleeding Controlled with: Pressure and Compression and gauze Patient tolerated procedure: Patient tolerated procedure well Debridement Free Text: Ulcer into the muscle with bone covered but palpable. Post-Debridement Measurements and Additional Note: Post-Debridement Measurements/Treatment - Nurse 1 - General Ulcer Assessment Start: 04/23/23 09:25 Freq: Status: Active Protocol: [email or web address] Activity Type Activity Date Activity User E-sign Co-sign Detail Recorded Client Recorded Date Recorded By Document 04/23/23 09:25 Desktop 04/23/23 09:37 04/23/23 09:25 - Today's Visit Information Type of service Follow-up Visit (Physician/TOOTH INSPECTOR ) Arrival Mode Wheelchair Transfer Assistance None Accompanied by mother Patient Identification Verified (Name & Yes ) Patient Requires Transmission-Based No Precautions Safety Precautions Fall Prevention Height and Weight Body Mass Index (BMI) 23.7 BMI Classification Normal Vital Signs Temperature (97.8 F-99.1 F) 97.1 F L Temperature Source Temporal Pulse Rate (60-100) 106 H Pulse Location Monitor Oxygen Delivery Method Room Air Blood Pressure (90/60-120/80) 115/71 Blood Pressure Mean (mm Hg) 85 Source Monitor Position Sitting Blood Pressure Location Left Arm History Since Last Visit- (Skip if this is Patient's initial visit) Have you changed medications since your No last visit? Any new allergies or adverse reactions No Had a fall/change in ADL's that may No increase risk of falls Signs or symptoms of abuse and/or No neglect since last visit Have you been in the hospital since your No last visit? Has dressing in place as prescribed Yes Has compression in place as prescribed N/A Has offloadiing in place as prescribed N/A Experienced any changes in pain level or No management Pain Scale: 0-10 Numeric Is Patient Pain Free? Yes - Nurse 1 - General Ulcer Measurement Start: 04/23/23 09:25 Freq: Status: Active Protocol: Activity Type Activity Date Activity User E-sign Co-sign Detail Recorded Client Recorded Date Recorded By Document 04/23/23 09:25 Desktop 04/23/23 09:37 04/23/23 09:25 Wound Center Nurse 1 #1 sacrum -Epithelialization Small 1-33% -Exudate Type Serous -Wound Margin Distinct, Outline Attached -Granulation Amt Medium (34-66%) -Granulation Quality Red -Slough/Fibrin No -Necrosis Amt Small (1-33%) -Necrotic Tissue Type Adherent Slough -Structure Exposed Muscle -Texture (Meliza-wound Skin Appearance) Assessed -Moisture (Meliza-wound Skin Appearance) Assessed -Color (Meliza-wound Skin Appearance) Assessed -Temperature (Meliza-wound Skin No Abnormality Appearance) (Pt Warm) -Tenderness on Palpation (Meliza-wound No Skin Appearance) -Ulcer Cleansing Soap and Water -Anesthetic Used 4% Lidocaine Solution - Nurse 2 - General Ulcer CM Notes Start: 04/23/23 09:25 Freq: Status: Active Protocol: Activity Type Activity Date Activity User E-sign Co-sign Detail Recorded Client Recorded Date Recorded By Document 04/23/23 10:19 Laptop 04/23/23 10:25 04/23/23 10:19 Wound Center Nurse 2 -Time 10:20 -Correct Patient Yes -Correct Side, Site, Position Yes -Correct Procedure Yes -Procedure Performed Yes -Type of Procedure Debridement -Clinical Debridement Muscle / Fascia -Tissue Removed Muscle,Fascia -Post Debridement (cm) - Length 11.0 -Post Debridement (cm) - Width 8.5 -Post Debridement (cm) - Depth 2.8 -Total Square (Post) (cm) 93.50 -Area of Debridement (cm) - Length 11 -Area of Debridement (cm) - Width 8.5 -Total Square (Area) (cm) 93.5 -Tunneling Yes -Tunneling Position (O'clock) 9 -Tunneling Distance (cm) 7.5 -Undermining/Tunneling No -Circular Undermining Yes -Wound/Ulcer Outcome Not Healed -Ulcer Cleansing Rinsed/ Irrigated with Saline -Foul Odor after Cleansing No -Bioengineered Tissue No -Bleeding Controlled with Pressure -Treatment Response Procedure Tolerated Well -Offloading No -Pressure Reduction Wheelchair cushion -Debridement - Muscle / Fascia, 1st Yes 20sq cm -Debridement, Muscle/Fascia, ea addt'l 4 20sq cm or part thereof -Debridement - Bone, 1st 20sq cm No Pain Scale: 0-10 Numeric Is Patient Pain Free? Yes Assessment/Plan Assessment/Plan (1) Stage IV pressure ulcer of sacral region: CODE(S): L89.154 - Pressure ulcer of sacral region, stage 4 (2) Spina bifida: CODE(S): Q05.9 - Spina bifida, unspecified QUALIFIERS: Spinal region: lumbosacral Presence of hydrocephalus: with hydrocephalus Qualified Code(s): Q05.2 - Lumbar spina bifida with hydrocephalus (3) Wheelchair dependence: CODE(S): Z99.3 - Dependence on wheelchair (4) Hydrocephalus: CODE(S): G91.9 - Hydrocephalus, unspecified QUALIFIERS: Hydrocephalus type: unspecified Qualified Code(s): G91.9 - Hydrocephalus, unspecified (5) Nausea & vomiting: CODE(S): R11.2 - Nausea with vomiting, unspecified (6) Fever: CODE(S): R50.9 - Fever, unspecified PLAN: Plan Patient was evaluated at the wound healing center today. Wound care - Dakins 0.25% moistened gauze daily. Wash ulcer and meliza wound with soap and water at the time of the dressing change. A wound culture was obtained 12/02/22, it was positive for Proteus panneri and Streptococcus group C. He was placed on Levaquin. Erythromycin was added for the Streptococcus. Prealbumin from 07/17/22 was 14.6. Encourage nutritional supplementation with protein to help the healing process. Patient had a colostomy placed at [facility] on September 30, 2022 and is doing well since then. Wound culture from 01/29/23 positive for Pseudomonas aeroginosa #1 and #2 and Staphylococcus hominis hominis. He was treated with Cipro. Follow up 3 weeks. Call or come in if develop any concerns. He has a new Roho cushion for his wheelchair. He has a memory foam mattress at home. He states a hospital low air loss bed won't fit into their trailer. His mother states that he never has any red areas or pressure areas when he is in bed. A memory foam mattress is not adequate for a Stage IV pressure sore. When the wound is closed with muscle flaps, a hospital low air loss bed is paramount. Otherwise the memory foam mattress will place extra pressure on the surgical incision, and there is a very high likelihood that the flap would fail. The patient and family are anxious for wound closure. Stressed the importance of control of infection, maximize the nutrition, and have proper low air loss bed before considering wound closure. I anticipate wound closure in 6 months, tentative. Initially will need another excision along with partial ostectomy to evaluate for osteomyelitis. The gluteus apollo V-Y myocutaneous flaps appear to be maximally advanced. Not sure how much advancement I will get for closure even by mobilizing and advancing both gluteus apollo myocutaneous flaps. Vastus lateralis muscular flaps can be used as well. However its blood supply is in the proximal thigh. He has bilateral incisions from previous hip surgery. Don't know preop whether these muscle flaps will be able to be used because of previous surgical dissection that may have compromised the proximal blood supply to the vastus lateralis muscle. So when the muscle is elevated from distal to proximal, there is a chance the muscle won't survive because of compromised proximal blood supply. Ultimately the last resort would be a total thigh flap to provide enough soft tissue to close the pressure sore. The flap necessitates an amputation. The mother stated that they are not in favor of an amputation. The patient may benefit from being evaluated at a tertiary center for possible wound closure with microvascular free tissue transfer if the above mentioned muscles end up being inadequate for complete wound closure. At the time of the excision of the pressure sore in preparation for wound closure with muscle flaps, will check a Prealbumin and send soft tissue and bone to Pathology as well as to Microbiology. A positive culture will necessitate antibiotic therapy, possibly IV.
== END 2023-05-15 23:59 | disposition home or self-care (01) ==
LOC: WC 09:22
PROVIDERS: PCP Internal Medicine; Visit Provider Nurse Practitioner Family
DX: L89.154 Pressure ulcer of sacral region, stage 4 (principal); Q05.9 Spina bifida, unspecified; Z98.2 Presence of cerebrospinal fluid drainage device; R50.9 Fever, unspecified; R11.2 Nausea with vomiting, unspecified; Z99.3 Dependence on wheelchair
CPT/HCPCS: 11043; 11046

== ENCOUNTER 2023-05-26 12:59 | Outpatient (RCR) | payer MEDICARE, MEDICAID, SELFPAY ==
[2023-05-16 00:08] VITALS: BP 115/71; PULSE 106; RESP 18; TEMP 36.2; BMI 23.7
[2023-05-26 13:09] VITALS: BP 119/70; PULSE 96; RESP 16; TEMP 36.6; BMI 23.7
--- NOTE | 2023-05-26 16:52 | PCM.WC.PN ---
History of Present Illness Date of Service: 05/26/23 Chief Complaint: Recurrent left sacral pressure sore, Stage IV. History of Wound: 27 year old man with a history of Spina bifida presented to the Wound Center with a recurrent left sacral pressure sore that started a couple of months ago according to the patient. He bumped his buttocks sometime during the summer and did not tell his mother until it was infected and draining. He initially went to [facility] in April,, and was hospitalized 3 days for IV antibiotics with Meropenem and Clindamycin. Also received a dose of Vancomycin in the ED and had a skin rash. CT showed a rim-enhancing perirectal fluid collection measuring 3.9 x 6.2 cm, compatible with an abscess. He was transferred to [facility] where an I&D was performed. He has a history of Spina bifida which he has had bilateral hip surgery for hip dysplasia at age 8 and another surgery on legs bilaterally to help him wear braces to stand, which he never has been able to do. He had a sacral muscle flap at age 14 at [facility] for an ulcer. Also has a history of hydrocephalous with a shunt. Surgery 07/16/22 - Excision recurrent left sacral pressure sore, Stage IV, with partial ostectomy for osteomyelitis. Operative tissue and bone cultures positive for Enterobacter cloacae complex and he is on Levaquin. Consult placed for diverting colostomy but it was recommended the patient be referred to a tertiary center due to his [employer] D[employer] shunt and urinary conduit. Wound care - Wound VAC at 150 mmHg to be changed 3 times per week. Wound culture from 06/03/22 positive for Bacillus sp. no anthracis and MRSE. He was started on Levaquin. Today denies fever. His appetite is ok. Progress of Wound: The left sacral pressure sore, Stage IV into the muscle, the bone is palpable but not exposed. There is circumferential undermining with the deepest area at 9 o'clock. He has a new ulcer on his left scrotum most likely from pressure and moisture. Objective Data Objective Data Vital Signs: Vital Signs Temp Pulse Resp BP O2 Del Method 98 F 96 16 119/70 Room Air 05/26/23 13:09 05/26/23 13:09 05/26/23 13:09 05/26/23 13:09 05/26/23 13:09 Oxygen Delivery Method Room Air Weight: 175 lb Body Mass Index (BMI) 23.7 Charges/Coding Procedures Integumentary 111xxx-113xx: 16848 Camelia musc/fascia 20 sq cm/< (sacral ulcer) Add On Codes: 61495 Camelia musc/fascia add-on (x5) Multi Select Codes Integumentary Integumentary CPT Codes: 41162 Camelia subq tissue 20 sq cm/< (left scrotal ulcer) Debridement Note Debridement Note Wound debrided: #1 Sacral area. Laterality: Not Applicable Wound Grade/Stage: IV. Type of Debridement: Excisional debridement Anesthesia Used: 4% Lidocaine Solution Depth: Down to and including healthy tissue, in the subcutaneous layer, to muscle and to bone (bone is palpable but not exposed and not debrided.) Percentage of wound debrided: 100 Instrument Used: 7mm curette Tissue Removed: subcutaneous tissue and muscle. Severity: Fat Layer Exposed (muscle is exposed. bone is palpable but not exposed and not debrided.) Amount of bleeding with debridement: Mild Bleeding Controlled with: Pressure and Compression and gauze Patient tolerated procedure: Patient tolerated procedure well Debridement Free Text: Ulcer into the muscle with bone covered but palpable. Post-Debridement Measurements and Additional Note: Post-Debridement Measurements/Treatment - Nurse 1 - General Ulcer Assessment Start: 05/26/23 13:07 Freq: Status: Active Protocol: [email or web address] Activity Type Activity Date Activity User E-sign Co-sign Detail Recorded Client Recorded Date Recorded By Document 05/26/23 13:09 [facility] Desktop 05/26/23 13:24 [facility] 05/26/23 13:09 - Today's Visit Information Type of service Follow-up Visit (Physician/GENERAL RO[employer]NAGER ) Arrival Mode Wheelchair Transfer Assistance Other Transfer Assist (Other) stand by Accompanied by mom Patient Identification Verified (Name & Yes ) Patient Requires Transmission-Based No Precautions Height and Weight Body Mass Index (BMI) 23.7 BMI Classification Normal Vital Signs Temperature (97.8 F-99.1 F) 98 F Temperature Source Temporal Pulse Rate (60-100) 96 Pulse Location Monitor Respiratory Rate (12-18) 16 Respiratory rate source Ventilator Oxygen Delivery Method Room Air Blood Pressure (90/60-120/80) 119/70 Blood Pressure Mean (mm Hg) 86 Source Monitor Position Sitting Blood Pressure Location Left Arm History Since Last Visit- (Skip if this is Patient's initial visit) Have you changed medications since your No last visit? Any new allergies or adverse reactions No Had a fall/change in ADL's that may No increase risk of falls Signs or symptoms of abuse and/or No neglect since last visit Have you been in the hospital since your No last visit? Has dressing in place as prescribed Yes Has compression in place as prescribed N/A Has offloadiing in place as prescribed N/A Experienced any changes in pain level or No management Left Footwear Regular Shoe Right Footwear Regular Shoe Pain Scale: 0-10 Numeric Is Patient Pain Free? Yes WC - Nurse 1 - General Ulcer Measurement Start: 05/26/23 13:07 Freq: Status: Active Protocol: Activity Type Activity Date Activity User E-sign Co-sign Detail Recorded Client Recorded Date Recorded By Document 05/26/23 13:09 [facility] Desktop 05/26/23 13:24 [facility] 05/26/23 13:09 Wound Center Nurse 1 #3- SCROTAL -Combined with other wound No -Current Size (cm) - Length 2.3 -Current Size (cm) - Width 3.1 -Current Size (cm) - Depth 0.1 -Total Square Cm 7.13 -Date of Last Picture (Recall this 05/26/23 field) -Photo Taken No -Epithelialization None Present -Tunneling No -Undermining/Tunneling No -Circular Undermining No -Exudate Amt Large -Exudate Type Serosanguineous -Wound Margin Flat & Intact -Granulation Amt Small (1-33%) -Granulation Quality Red -Slough/Fibrin Yes -Necrosis Amt Large (67-100%) -Necrotic Tissue Type Adherent Slough -Texture (Meliza-wound Skin Appearance) Assessed, Scarring -Moisture (Meliza-wound Skin Appearance) Assessed -Color (Meliza-wound Skin Appearance) Assessed, Erythema -Temperature (Meliza-wound Skin No Abnormality Appearance) (Pt Warm) -Tenderness on Palpation (Meliza-wound No Skin Appearance) -Ulcer Cleansing Soap and Water -Foul Odor after Cleansing No -Anesthetic Used 4% Lidocaine Solution #1 sacrum -Combined with other wound No -Current Size (cm) - Length 10.9 -Current Size (cm) - Width 3.5 -Current Size (cm) - Depth 6.7 -Total Square Cm 38.15 -Date of Last Picture (Recall this 05/26/23 field) -Photo Taken Yes -Epithelialization None Present -Tunneling No -Undermining/Tunneling Yes -Undermining/Tunneling Starts (O'clock 9 ) -Undermining/Tunneling Ends (O'clock) 11 -Maximum Distance (cm) 4.1 -Circular Undermining No -Exudate Amt Large -Exudate Type Yellow/Green -Wound Margin Distinct, Outline Attached -Granulation Amt Large (67-100%) -Granulation Quality Red -Slough/Fibrin Yes -Necrosis Amt Small (1-33%) -Necrotic Tissue Type Adherent Slough -Texture (Meliza-wound Skin Appearance) Assessed, Scarring -Moisture (Meliza-wound Skin Appearance) Assessed -Color (Meliza-wound Skin Appearance) Assessed -Temperature (Meliza-wound Skin No Abnormality Appearance) (Pt Warm) -Tenderness on Palpation (Meliza-wound No Skin Appearance) -Ulcer Cleansing Soap and Water -Anesthetic Used 4% Lidocaine Solution, Cetacaine WC - Nurse 2 - General Ulcer CM Notes Start: 05/26/23 13:07 Freq: Status: Active Protocol: Activity Type Activity Date Activity User E-sign Co-sign Detail Recorded Client Recorded Date Recorded By Document 05/26/23 13:38 Laptop 05/26/23 13:48 05/26/23 13:38 Wound Center Nurse 2 #3- SCROTAL -Time 13:47 -Correct Patient Yes -Correct Side, Site, Position Yes -Correct Procedure Yes -Procedure Performed Yes -Type of Procedure Debridement -Clinical Debridement Subcutaneous -Tissue Removed Subcutaneous -Post Debridement (cm) - Length 3.0 -Post Debridement (cm) - Width 2.0 -Post Debridement (cm) - Depth 0.1 -Total Square (Post) (cm) 6.00 -Area of Debridement (cm) - Length 3.0 -Area of Debridement (cm) - Width 2.0 -Total Square (Area) (cm) 6.00 -Tunneling No -Undermining/Tunneling No -Circular Undermining No -Wound/Ulcer Outcome Not Healed -Ulcer Cleansing Rinsed/ Irrigated with Saline -Foul Odor after Cleansing No -Bioengineered Tissue No -Bleeding Controlled with Pressure -Treatment Response Procedure Tolerated Well -Offloading No -Pressure Reduction Wheelchair cushion -Debridement - Subq, 1st 20sq cm Yes #1 sacrum -Time 13:46 -Correct Patient Yes -Correct Side, Site, Position Yes -Correct Procedure Yes -Procedure Performed Yes -Type of Procedure Debridement -Clinical Debridement Muscle / Fascia -Tissue Removed Muscle,Fascia -Post Debridement (cm) - Length 11.5 -Post Debridement (cm) - Width 10.0 -Post Debridement (cm) - Depth 1.5 -Total Square (Post) (cm) 115.00 -Area of Debridement (cm) - Length 11.5 -Area of Debridement (cm) - Width 10 -Total Square (Area) (cm) 115.0 -Tunneling No -Undermining/Tunneling No -Circular Undermining No -Wound/Ulcer Outcome Not Healed -Ulcer Cleansing Rinsed/ Irrigated with Saline -Foul Odor after Cleansing No -Bioengineered Tissue No -Bleeding Controlled with Pressure -Treatment Response Procedure Tolerated Well -Offloading No -Debridement - Muscle / Fascia, 1st Yes 20sq cm -Debridement, Muscle/Fascia, ea addt'l 5 20sq cm or part thereof Pain Scale: 0-10 Numeric Is Patient Pain Free? Yes - Nurse 3 - General Ulcer D/C NN Start: 05/26/23 13:07 Freq: Status: Active Protocol: Activity Type Activity Date Activity User E-sign Co-sign Detail Recorded Client Recorded Date Recorded By Document 05/26/23 14:00 [facility] Desktop 05/26/23 14:01 [facility] 05/26/23 14:00 Wound Care Center Nurse 3 #3- SCROTAL -Ulcer Cleansing Rinsed/ Irrigated with Saline -Foul Odor after Cleansing No -Other Dressing CALMOSEPTINE #1 sacrum -Ulcer Cleansing Soap and Water -Foul Odor after Cleansing No -Primary Dressing Applied Hysept ($) -Other Dressing DAKINS MOIST KERLIX -Primary Dressing Covered/Secured with Secured with Tape -Other Covering ABD Treatment Response Procedure Tolerated Well Pain Scale: 0-10 Numeric Is Patient Pain Free? Yes - Visit Discharge Discharge Condition Stable Ambulatory Status Wheelchair Transportation Private Auto Accompanied by MOM Additional Wound Wound debrided: Scrotum Laterality: Left Wound Grade/Stage: Stage II Type of Debridement: Excisional debridement Anesthesia Used: 5% Lidocaine Gel Depth: Down to and including healthy tissue and in the subcutaneous layer Percentage of wound debrided: 100 Instrument Used: 5mm curette Tissue Removed: Non viable tissue and slough Severity: Limited To Skin Breakdown Amount of bleeding with debridement: Mild Bleeding Controlled with: Compression and gauze Patient tolerated procedure: Patient tolerated procedure well Assessment/Plan Assessment/Plan (1) Stage IV pressure ulcer of sacral region: CODE(S): L89.154 - Pressure ulcer of sacral region, stage 4 (2) Spina bifida: CODE(S): Q05.9 - Spina bifida, unspecified QUALIFIERS: Spinal region: lumbosacral Presence of hydrocephalus: with hydrocephalus Qualified Code(s): Q05.2 - Lumbar spina bifida with hydrocephalus (3) Wheelchair dependence: CODE(S): Z99.3 - Dependence on wheelchair (4) Hydrocephalus: CODE(S): G91.9 - Hydrocephalus, unspecified QUALIFIERS: Hydrocephalus type: unspecified Qualified Code(s): G91.9 - Hydrocephalus, unspecified (5) Nausea & vomiting: CODE(S): R11.2 - Nausea with vomiting, unspecified (6) Fever: CODE(S): R50.9 - Fever, unspecified (7) Skin ulcer of scrotum: CODE(S): N50.89 - Other specified disorders of the male genital organs PLAN: Plan Patient was evaluated at the wound healing center today. Wound care - Dakins 0.25% moistened gauze daily. Wash ulcer and meliza wound with soap and water at the time of the dressing change. Left sacral ulcer place barrier cream on daily and make sure he is not sitting on his scrotum. A wound culture was obtained 12/02/22, it was positive for Proteus panneri and Streptococcus group C. He was placed on Levaquin. Erythromycin was added for the Streptococcus. Prealbumin from 07/17/22 was 14.6. Encourage nutritional supplementation with protein to help the healing process. Patient had a colostomy placed at [facility] on September 30, 2022 and is doing well since then. Wound culture from 01/29/23 positive for Pseudomonas aeroginosa #1 and #2 and Staphylococcus hominis hominis. He was treated with Cipro. Follow up 4 weeks. Call or come in if develop any concerns. He has a new Roho cushion for his wheelchair. He has a memory foam mattress at home. He states a hospital low air loss bed won't fit into their trailer. His mother states that he never has any red areas or pressure areas when he is in bed. A memory foam mattress is not adequate for a Stage IV pressure sore. When the wound is closed with muscle flaps, a hospital low air loss bed is paramount. Otherwise the memory foam mattress will place extra pressure on the surgical incision, and there is a very high likelihood that the flap would fail. The patient and family are anxious for wound closure. Stressed the importance of control of infection, maximize the nutrition, and have proper low air loss bed before considering wound closure. I anticipate wound closure in 6 months, tentative. Initially will need another excision along with partial ostectomy to evaluate for osteomyelitis. The gluteus apollo V-Y myocutaneous flaps appear to be maximally advanced. Not sure how much advancement I will get for closure even by mobilizing and advancing both gluteus apollo myocutaneous flaps. Vastus lateralis muscular flaps can be used as well. However its blood supply is in the proximal thigh. He has bilateral incisions from previous hip surgery. Don't know preop whether these muscle flaps will be able to be used because of previous surgical dissection that may have compromised the proximal blood supply to the vastus lateralis muscle. So when the muscle is elevated from distal to proximal, there is a chance the muscle won't survive because of compromised proximal blood supply. Ultimately the last resort would be a total thigh flap to provide enough soft tissue to close the pressure sore. The flap necessitates an amputation. The mother stated that they are not in favor of an amputation. The patient may benefit from being evaluated at a tertiary center for possible wound closure with microvascular free tissue transfer if the above mentioned muscles end up being inadequate for complete wound closure. At the time of the excision of the pressure sore in preparation for wound closure with muscle flaps, will check a Prealbumin and send soft tissue and bone to Pathology as well as to Microbiology. A positive culture will necessitate antibiotic therapy, possibly IV.
--- NOTE | 2023-05-29 13:02 | WC ---
Received a call from Brianna Nunes about sending patient to ID for consult due to increase resistance to ATB's based on his culture report. Called Myrna, patient's mom and informed her that I will be sending the referral to Dr Light's office and they will contact her for an appt. She verbalized understanding. Referral faxed.
--- NOTE | 2023-06-04 16:29 | WC ---
Myrna, patient's mom called saying Latonya nixon get in until 06/25/23 for ID. Notified Brianna Nunes [employer] regarding this and she will be calling in [employer] to [facility] to cover until seen by ID. She stressed that if patient's wound get worse, to report to ER. Explained this to Myrna who verbalized understanding.
== END 2023-06-15 23:59 | disposition home or self-care (01) ==
LOC: WC 12:59
PROVIDERS: PCP Internal Medicine; Visit Provider Nurse Practitioner Family
DX: L89.154 Pressure ulcer of sacral region, stage 4 (principal); L98.492 Non-pressure chronic ulcer of skin of other sites with fat layer exposed; Q05.2 Lumbar spina bifida with hydrocephalus; Z98.2 Presence of cerebrospinal fluid drainage device; R11.2 Nausea with vomiting, unspecified; Z99.3 Dependence on wheelchair; N50.9 Disorder of male genital organs, unspecified; R50.9 Fever, unspecified
CPT/HCPCS: 11042; 11043; 11046; 87070; 87075; 87077; 87186; 87205

== ENCOUNTER 2023-06-23 13:23 | Outpatient (RCR) | payer MEDICARE, MEDICAID, SELFPAY ==
[2023-06-16 00:10] VITALS: BP 119/70; PULSE 96; RESP 16; TEMP 36.6; BMI 23.7
[2023-06-23 13:28] VITALS: BP 117/78; PULSE 91; RESP 18; TEMP 36.2; BMI 23.7
--- NOTE | 2023-06-23 14:45 | PCM.WC.PN ---
History of Present Illness Date of Service: 06/23/23 Chief Complaint: Recurrent left sacral pressure sore, Stage IV. History of Wound: 27 year old man with a history of Spina bifida presented to the [facility] with a recurrent left sacral pressure sore that started a couple of months ago according to the patient. He bumped his buttocks sometime during the summer and did not tell his mother until it was infected and draining. He initially went to [facility] in April,, and was hospitalized 3 days for IV antibiotics with Meropenem and Clindamycin. Also received a dose of Vancomycin in the ED and had a skin rash. CT showed a rim-enhancing perirectal fluid collection measuring 3.9 x 6.2 cm, compatible with an abscess. He was transferred to [facility] where an I&D was performed. He has a history of Spina bifida which he has had bilateral hip surgery for hip dysplasia at age 8 and another surgery on legs bilaterally to help him wear braces to stand, which he never has been able to do. He had a sacral muscle flap at age 14 at [facility] for an ulcer. Also has a history of hydrocephalous with a shunt. Surgery 07/16/22 - Excision recurrent left sacral pressure sore, Stage IV, with partial ostectomy for osteomyelitis. Wound Care - [facility]. Operative tissue and bone cultures from 07/16/22 were positive for Enterobacter cloacae complex. He was treated with Levaquin. Pathology from 07/16/22 showed chronic reparative and reactive change. No evidence of acute osteomyelitis. Recent wound culture from 05/27/23 showed MDR Acinetobacter baumannii, Enterococcus faecalis, and Methicillin resistant Staphylococcus haemolyticus. Infectious Diseases has been consulted to assist with antibiotic management (PO vs IV). Prealbumin from 07/17/22 was 14.6. Encourage nutritional supplementation with protein to help the healing process. CT Abdomen/Pelvis from 01/29/23 - There is sclerosis of the underlying sacrum suggestive of possible chronic osteomyelitis. There is superior migration of the proximal left femur. There is deformity of the proximal left femur with the old fracture of the left femoral head. Today denies fever. His appetite is ok. Progress of Wound: Stable. Minimal improvement. Objective Data Objective Data Vital Signs: Vital Signs Temp Pulse Resp BP O2 Del Method 97.1 F L 91 18 117/78 Room Air 06/23/23 13:28 06/23/23 13:28 06/23/23 13:28 06/23/23 13:28 06/23/23 13:28 Oxygen Delivery Method Room Air Weight: 175 lb Body Mass Index (BMI) 23.7 Prealbumin from 07/17/22 was 14.6.? Encourage nutritional supplementation with protein to help the healing process. Lab / Micro Data Attestation: I reviewed the patient's lab results. Charges/Coding Procedures Integumentary [id number]: [id number] Camelia musc/fascia 20 sq cm/< (ICD-10 - L89.154, Q05.9, Z99.3, G91.9) Add On Codes: 93911 Camelia musc/fascia add-on (x5 Units) (ICD-10 - L89.154, Q05.9, Z99.3, G91.9) Debridement Note Debridement Note Wound debrided: #1 Sacral area. Laterality: Not Applicable Wound Grade/Stage: IV. Type of Debridement: Excisional debridement Anesthesia Used: 4% Lidocaine Solution Depth: Down to and including healthy tissue, in the subcutaneous layer, to muscle and to bone (bone is palpable but not exposed and not debrided.) Percentage of wound debrided: 100 Instrument Used: 7mm curette Tissue Removed: subcutaneous tissue and muscle. Severity: Fat Layer Exposed (muscle is exposed. bone is palpable but not exposed and not debrided.) Amount of bleeding with debridement: Mild Bleeding Controlled with: Pressure and Compression and gauze Patient tolerated procedure: Patient tolerated procedure well Debridement Free Text: Ulcer into the muscle with bone palpable but covered with granulation tissue. Post-Debridement Measurements and Additional Note: Post-Debridement Measurements/Treatment - Nurse 1 - General Ulcer Assessment Start: 06/23/23 13:28 Freq: Status: Active Protocol: .LOWEXT Activity Type Activity Date Activity User E-sign Co-sign Detail Recorded Client Recorded Date Recorded By Document 06/23/23 13:28 [facility] Desktop 06/23/23 13:38 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 ) Arrival Mode Wheelchair Patient Identification Verified (Name & Yes ) Height and Weight Body Mass Index (BMI) 23.7 BMI Classification Normal Vital Signs Temperature (97.8 F-99.1 F) 97.1 F L Temperature Source Temporal Pulse Rate (60-100) 91 Pulse Location Monitor Respiratory Rate (12-18) 18 Respiratory rate source Observation Oxygen Delivery Method Room Air Blood Pressure (90/60-120/80) 117/78 Blood Pressure Mean (mm Hg) 91 Source Monitor Position Sitting Blood Pressure Location Left Arm History Since Last Visit- (Skip if this is Patient's initial visit) Have you changed medications since your No last visit? Any new allergies or adverse reactions No Had a fall/change in ADL's that may No increase risk of falls Signs or symptoms of abuse and/or No neglect since last visit Have you been in the hospital since your No last visit? Has dressing in place as prescribed Yes Has compression in place as prescribed No Has offloadiing in place as prescribed No Experienced any changes in pain level or No management Left Footwear Regular Shoe Right Footwear Regular Shoe Pain Scale: 0-10 Numeric Is Patient Pain Free? Yes WC - Nurse 1 - General Ulcer Measurement Start: 06/23/23 13:28 Freq: Status: Active Protocol: Activity Type Activity Date Activity User E-sign Co-sign Detail Recorded Client Recorded Date Recorded By Document 06/23/23 13:28 [facility] Desktop 06/23/23 13:38 [facility] 06/23/23 13:28 Wound Center Nurse 1 #3- SCROTAL -Current Size (cm) - Length 0 -Current Size (cm) - Width 0 -Current Size (cm) - Depth 0 -Total Square Cm 0 #1 sacrum -Current Size (cm) - Length 11.5 -Current Size (cm) - Width 4.3 -Current Size (cm) - Depth 2.7 -Total Square Cm 49.45 -Date of Last Picture (Recall this 06/23/23 field) -Photo Taken Yes -Undermining/Tunneling Yes -Undermining/Tunneling Starts (O'clock 7 ) -Undermining/Tunneling Ends (O'clock) 2 -Maximum Distance (cm) 8.5 -Exudate Amt Medium -Exudate Type Yellow/Green -Wound Margin Distinct, Outline Attached -Granulation Amt Large (67-100%) -Granulation Quality Red -Necrosis Amt Small (1-33%) -Necrotic Tissue Type Adherent Slough -Texture (Meliza-wound Skin Appearance) Assessed -Moisture (Meliza-wound Skin Appearance) Assessed -Color (Meliza-wound Skin Appearance) Assessed -Ulcer Cleansing Soap and Water -Anesthetic Used 4% Lidocaine Solution WC - Nurse 2 - General Ulcer CM Notes Start: 06/23/23 13:28 Freq: Status: Active Protocol: Activity Type Activity Date Activity User E-sign Co-sign Detail Recorded Client Recorded Date Recorded By Document 06/23/23 13:48 [facility]ILLY Laptop 06/23/23 13:54 BILLY Edit Result 06/23/23 13:48 JF (1) Laptop 06/23/23 14:02 JF (1) #3- SCROTAL - Post Debridement (cm) - Length => 0 - Post Debridement (cm) - Width => 0 - Post Debridement (cm) - Depth => 0 - Total Square (Post) (cm) => 0 - Area of Debridement (cm) - Length => 0 - Area of Debridement (cm) - Width => 0 - Total Square (Area) (cm) => 0 - Wound/Ulcer Outcome => Healed- => Epithelialized 06/23/23 13:48 Wound Center Nurse 2 #3- SCROTAL -Correct Patient No -Correct Side, Site, Position No -Correct Procedure No -Procedure Performed No -Post Debridement (cm) - Length 0 -Post Debridement (cm) - Width 0 -Post Debridement (cm) - Depth 0 -Total Square (Post) (cm) 0 -Area of Debridement (cm) - Length 0 -Area of Debridement (cm) - Width 0 -Total Square (Area) (cm) 0 -Wound/Ulcer Outcome Healed- Epithelialized #1 sacrum -Time 13:48 -Correct Patient Yes -Correct Side, Site, Position Yes -Correct Procedure Yes -Procedure Performed Yes -Type of Procedure Debridement -Clinical Debridement Muscle / Fascia -Tissue Removed Muscle,Fascia -Post Debridement (cm) - Length 11 -Post Debridement (cm) - Width 10 -Post Debridement (cm) - Depth 1.0 -Total Square (Post) (cm) 110 -Area of Debridement (cm) - Length 11 -Area of Debridement (cm) - Width 10 -Total Square (Area) (cm) 110 -Tunneling Yes -Tunneling Position (O'clock) 9 -Tunneling Distance (cm) 6 -Undermining/Tunneling No -Circular Undermining No -Wound/Ulcer Outcome Not Healed -Ulcer Cleansing Rinsed/ Irrigated with Saline -Foul Odor after Cleansing No -Bioengineered Tissue No -Bleeding Controlled with Pressure -Treatment Response Procedure Tolerated Well -Offloading No -Debridement - Muscle / Fascia, 1st Yes 20sq cm -Debridement, Muscle/Fascia, ea addt'l 5 20sq cm or part thereof Pain Scale: 0-10 Numeric Is Patient Pain Free? Yes WC - Nurse 3 - General Ulcer D/C NN Start: 06/23/23 13:28 Freq: Status: Active Protocol: Activity Type Activity Date Activity User E-sign Co-sign Detail Recorded Client Recorded Date Recorded By Document 06/23/23 14:19 [facility] Desktop 06/23/23 14:19 KW 06/23/23 14:19 Wound Care Center Nurse 3 #1 sacrum -Primary Dressing Applied Hysept ($) -Primary Dressing Covered/Secured with Dry Gauze, Secured with Tape Pain Scale: 0-10 Numeric Is Patient Pain Free? Yes WC - Visit Discharge Discharge Condition Stable Ambulatory Status Wheelchair Transportation Private Auto Medication Reconcilliation completed & No provided to patient/care provider Clinical Summary of Care Provided Yes Additional Wound Tissue Removed: Non viable tissue and slough Assessment/Plan Assessment/Plan (1) Stage IV pressure ulcer of sacral region: CODE(S): L89.154 - Pressure ulcer of sacral region, stage 4 (2) Spina bifida: CODE(S): Q05.9 - Spina bifida, unspecified QUALIFIERS: Presence of hydrocephalus: with hydrocephalus Spinal region: lumbosacral Qualified Code(s): Q05.2 - Lumbar spina bifida with hydrocephalus (3) Wheelchair dependence: CODE(S): Z99.3 - Dependence on wheelchair (4) Hydrocephalus: CODE(S): G91.9 - Hydrocephalus, unspecified QUALIFIERS: Hydrocephalus type: unspecified Qualified Code(s): G91.9 - Hydrocephalus, unspecified PLAN: Plan Wound care - Dakins dressing changes daily. Had a wound culture on 05/27/23. It showed MDR Acinetobacter baumannii, Enterococcus faecalis, and Methicillin resistant Staphylococcus haemolyticus. He is being evaluated by Infectious Diseases later in the week for assistance with antibiotic management (PO vs IV). He has a new Roho cushion for his wheelchair. He has a memory foam mattress at home. He states a hospital low air loss bed won't fit into their trailer. His mother states that he never has any red areas or pressure areas when he is in bed. A memory foam mattress is not adequate for a Stage IV pressure sore. When the wound is closed with muscle flaps, a hospital low air loss bed is paramount. Otherwise the memory foam mattress will place extra pressure on the surgical incision, and there is a very high likelihood that the flap would fail. The patient and family are anxious for wound closure. Stressed the importance of control of infection, maximize the nutrition, and have proper low air loss bed before considering wound closure. I anticipate wound closure in 6 months, tentative. Initially will need another excision along with partial ostectomy to evaluate for osteomyelitis. The gluteus apollo V-Y myocutaneous flaps appear to be maximally advanced. Not sure how much advancement I will get for closure even by mobilizing and advancing both gluteus apollo myocutaneous flaps. Vastus lateralis muscular flaps can be used as well. However its blood supply is in the proximal thigh. He has bilateral incisions from previous hip surgery. Don't know preop whether these muscle flaps will be able to be used because of previous surgical dissection that may have compromised the proximal blood supply to the vastus lateralis muscle. So when the muscle is elevated from distal to proximal, there is a chance the muscle won't survive because of compromised proximal blood supply. Ultimately the last resort would be a total thigh flap to provide enough soft tissue to close the pressure sore. The flap necessitates an amputation. The mother stated that they are not in favor of an amputation. The patient may benefit from being evaluated at a tertiary center for possible wound closure with microvascular free tissue transfer if the above mentioned muscles end up being inadequate for complete wound closure. At the time of the excision of the pressure sore in preparation for wound closure with muscle flaps, will check a Prealbumin and send soft tissue and bone to Pathology as well as to Microbiology. A positive culture will necessitate antibiotic therapy. Usually can then proceed with the muscle flap closure in about 2 weeks after the excision. However if Pseudomonas is present or MRSA is present, then would need to treat for 6 weeks before thinking about wound closure. Followup 2 weeks.
== END 2023-07-16 23:59 | disposition home or self-care (01) ==
LOC: WC 13:23
PROVIDERS: PCP Internal Medicine; Visit Provider Surgery
DX: L89.154 Pressure ulcer of sacral region, stage 4 (principal); Q05.2 Lumbar spina bifida with hydrocephalus; G91.9 Hydrocephalus, unspecified; Z99.3 Dependence on wheelchair
CPT/HCPCS: 11043; 11046; 87070; 87075; 87077; 87186; 87205

== ENCOUNTER 2023-08-05 13:00 | Outpatient (RCR) | payer MEDICARE, MEDICAID, SELFPAY ==
[2023-07-17 00:45] VITALS: BP 117/78; PULSE 91; RESP 18; TEMP 36.2; BMI 23.7
[2023-07-22 13:20] VITALS: BP 114/67; PULSE 108; RESP 18; TEMP 36.4; BMI 23.7
--- NOTE | 2023-07-22 14:41 | PCM.WC.PN ---
History of Present Illness Date of Service: 07/22/23 Chief Complaint: Recurrent left sacral pressure sore, Stage IV. History of Wound: 27 year old man with a history of Spina bifida presented to the [facility] with a recurrent left sacral pressure sore that started a couple of months ago according to the patient. He bumped his buttocks sometime during the summer and did not tell his mother until it was infected and draining. He initially went to [facility] in April,, and was hospitalized 3 days for IV antibiotics with Meropenem and Clindamycin. Also received a dose of Vancomycin in the ED and had a skin rash. CT showed a rim-enhancing perirectal fluid collection measuring 3.9 x 6.2 cm, compatible with an abscess. He was transferred to [facility] where an I&D was performed. He has a history of Spina bifida which he has had bilateral hip surgery for hip dysplasia at age 8 and another surgery on legs bilaterally to help him wear braces to stand, which he never has been able to do. He had a sacral muscle flap at age 14 at [facility] for an ulcer. Also has a history of hydrocephalous with a shunt. Surgery 07/16/22 - Excision recurrent left sacral pressure sore, Stage IV, with partial ostectomy for osteomyelitis. Wound Care - [facility]. Operative tissue and bone cultures from 07/16/22 were positive for Enterobacter cloacae complex. He was treated with Levaquin. Pathology from 07/16/22 showed chronic reparative and reactive change. No evidence of acute osteomyelitis. Recent wound culture from 05/27/23 showed MDR Acinetobacter baumannii, Enterococcus faecalis, and Methicillin resistant Staphylococcus haemolyticus. Infectious Diseases has been consulted to assist with antibiotic management (PO vs IV). Prealbumin from 07/17/22 was 14.6. Encourage nutritional supplementation with protein to help the healing process. CT Abdomen/Pelvis from 01/29/23 - There is sclerosis of the underlying sacrum suggestive of possible chronic osteomyelitis. There is superior migration of the proximal left femur. There is deformity of the proximal left femur with the old fracture of the left femoral head. Today denies fever. His appetite is ok. Progress of Wound: Stable. Minimal improvement. Wound bed is beefy pink. Was hospitalized in [place] last week for having several seizures. Objective Data Objective Data Vital Signs: Vital Signs Temp Pulse Resp BP 97.6 F L 108 H 18 114/67 07/22/23 13:20 07/22/23 13:20 07/22/23 13:20 07/22/23 13:20 Weight: 175 lb Body Mass Index (BMI) 23.7 Charges/Coding Procedures Integumentary 111xxx-113xx: 32808 Camelia musc/fascia 20 sq cm/< (ICD-10 - L89.154, Q05.9, Z99.3, G91.9) Add On Codes: 06361 Camelia musc/fascia add-on (x4 Units) (ICD-10 - L89.154, Q05.9, Z99.3, G91.9) Debridement Note Debridement Note Wound debrided: #1 Sacral area. Laterality: Not Applicable Wound Grade/Stage: IV. Type of Debridement: Excisional debridement Anesthesia Used: 4% Lidocaine Solution Depth: Down to and including healthy tissue, in the subcutaneous layer, to muscle and to bone (bone is palpable but not exposed and not debrided.) Percentage of wound debrided: 100 Instrument Used: 7mm curette Tissue Removed: subcutaneous tissue and muscle. Severity: Fat Layer Exposed (muscle is exposed. bone is palpable but not exposed and not debrided.) Amount of bleeding with debridement: Mild Bleeding Controlled with: Pressure and Compression and gauze Patient tolerated procedure: Patient tolerated procedure well Debridement Free Text: Ulcer into the muscle with bone palpable but covered with granulation tissue. Post-Debridement Measurements and Additional Note: Post-Debridement Measurements/Treatment - Nurse 1 - General Ulcer Assessment Start: 07/22/23 13:20 Freq: Status: Active Protocol: ANDREW Activity Type Activity Date Activity User E-sign Co-sign Detail Recorded Client Recorded Date Recorded By Document 07/22/23 13:20 RB Desktop 07/22/23 13:37 RB 07/22/23 13:20 - Today's Visit Information Type of service Follow-up Visit (Physician/[employer]SULTANT ) Arrival Mode Ambulatory Transfer Assistance None Patient Identification Verified (Name & Yes ) Patient Requires Transmission-Based No Precautions Height and Weight Body Mass Index (BMI) 23.7 BMI Classification Normal Vital Signs Temperature (97.8 F-99.1 F) 97.6 F L Temperature Source Temporal Pulse Rate (60-100) 108 H Pulse Location Monitor Respiratory Rate (12-18) 18 Respiratory rate source Observation Blood Pressure (90/60-120/80) 114/67 Blood Pressure Mean (mm Hg) 82 Source Monitor Position Sitting Blood Pressure Location Right Arm History Since Last Visit- (Skip if this is Patient's initial visit) Have you changed medications since your No last visit? Any new allergies or adverse reactions No Had a fall/change in ADL's that may No increase risk of falls Signs or symptoms of abuse and/or No neglect since last visit Have you been in the hospital since your No last visit? Has dressing in place as prescribed Yes Has compression in place as prescribed No Has offloadiing in place as prescribed No Experienced any changes in pain level or No management Pain Scale: 0-10 Numeric Is Patient Pain Free? Yes WC - Nurse 1 - General Ulcer Measurement Start: 07/22/23 13:20 Freq: Status: Active Protocol: Activity Type Activity Date Activity User E-sign Co-sign Detail Recorded Client Recorded Date Recorded By Document 07/22/23 13:20 RB Desktop 07/22/23 13:37 RB 07/22/23 13:20 Wound Center Nurse 1 #1 sacrum -Combined with other wound No -Current Size (cm) - Length 13 -Current Size (cm) - Width 9 -Current Size (cm) - Depth 4.1 -Total Square Cm 117 -Tunneling No -Undermining/Tunneling Yes -Undermining/Tunneling Starts (O'clock 10 ) -Undermining/Tunneling Ends (O'clock) 2 -Maximum Distance (cm) 7.1 -Circular Undermining No -Exudate Amt Large -Exudate Type Serosanguineous -Wound Margin Thickened & Rolled Under -Granulation Amt Large (67-100%) -Granulation Quality Wolbach,Red -Slough/Fibrin Yes -Necrosis Amt Medium (34-66%) -Necrotic Tissue Type Adherent Slough -Structure Exposed Bone -Texture (Meliza-wound Skin Appearance) Assessed -Moisture (Meliza-wound Skin Appearance) Assessed -Color (Meliza-wound Skin Appearance) Assessed -Temperature (Meliza-wound Skin No Abnormality Appearance) (Pt Warm) -Tenderness on Palpation (Meliza-wound No Skin Appearance) -Ulcer Cleansing Wound Cleanser -Foul Odor after Cleansing Yes, Due to Product Use -Anesthetic Used 4% Lidocaine Solution WC - Nurse 2 - General Ulcer CM Notes Start: 07/22/23 13:20 Freq: Status: Active Protocol: Activity Type Activity Date Activity User E-sign Co-sign Detail Recorded Client Recorded Date Recorded By Document 07/22/23 13:51 JF Laptop 07/22/23 13:56 JF Edit Result 07/22/23 13:51 JF (1) Laptop 07/22/23 13:56 JF (1) #1 sacrum - Debridement, Muscle/Fascia, ea addt'l => 4 20sq cm or part thereof 07/22/23 13:51 Wound Center Nurse 2 -Time 13:51 -Correct Patient Yes -Correct Side, Site, Position Yes -Correct Procedure Yes -Procedure Performed Yes -Type of Procedure Debridement -Clinical Debridement Muscle / Fascia -Tissue Removed Muscle,Fascia -Post Debridement (cm) - Length 12 -Post Debridement (cm) - Width 8 -Post Debridement (cm) - Depth 3.6 -Total Square (Post) (cm) 96 -Area of Debridement (cm) - Length 12 -Area of Debridement (cm) - Width 8 -Total Square (Area) (cm) 96 -Tunneling No -Undermining/Tunneling Yes -Undermining/Tunneling Starts (O'clock 9 ) -Undermining/Tunneling Ends (O'clock) 12 -Maximum Distance (cm) 5.6 -Circular Undermining No -Wound/Ulcer Outcome Not Healed -Ulcer Cleansing Rinsed/ Irrigated with Saline -Foul Odor after Cleansing No -Bioengineered Tissue No -Bleeding Controlled with Pressure -Treatment Response Procedure Tolerated Well -Offloading No -Pressure Reduction Wheelchair cushion -Debridement - Muscle / Fascia, 1st Yes 20sq cm -Debridement, Muscle/Fascia, ea addt'l 4 20sq cm or part thereof Pain Scale: 0-10 Numeric Is Patient Pain Free? Yes LARISSA - Nurse 3 - General Ulcer D/C NN Start: 07/22/23 13:20 Freq: Status: Active Protocol: Activity Type Activity Date Activity User E-sign Co-sign Detail Recorded Client Recorded Date Recorded By Document 07/22/23 14:17 RB Desktop 07/22/23 14:19 RB 07/22/23 14:17 Wound Care Center Nurse 3 #1 sacrum -Ulcer Cleansing Rinsed/ Irrigated with Saline -Other Dressing dakins moistened gauze -Primary Dressing Covered/Secured with Dry Gauze,Dry Gauze & Roll Gauze,Secured with Tape -Other Covering abd Treatment Response Procedure Tolerated Well Pain Scale: 0-10 Numeric Is Patient Pain Free? Yes WC - Visit Discharge Discharge Condition Stable Ambulatory Status Wheelchair Transportation Private Auto Medication Reconcilliation completed & No provided to patient/care provider Clinical Summary of Care Provided Yes Notes: assist per 2 nurses to w/c Additional Wound Tissue Removed: Non viable tissue and slough Assessment/Plan Assessment/Plan (1) Stage IV pressure ulcer of sacral region: CODE(S): L89.154 - Pressure ulcer of sacral region, stage 4 (2) Spina bifida: CODE(S): Q05.9 - Spina bifida, unspecified QUALIFIERS: Spinal region: lumbosacral Presence of hydrocephalus: with hydrocephalus Qualified Code(s): Q05.2 - Lumbar spina bifida with hydrocephalus (3) Wheelchair dependence: CODE(S): Z99.3 - Dependence on wheelchair (4) Hydrocephalus: CODE(S): G91.9 - Hydrocephalus, unspecified QUALIFIERS: Hydrocephalus type: unspecified Qualified Code(s): G91.9 - Hydrocephalus, unspecified PLAN: Plan Wound care - Dakins dressing changes daily. Had a wound culture on 05/27/23. It showed MDR Acinetobacter baumannii, Enterococcus faecalis, and Methicillin resistant Staphylococcus haemolyticus. He is on IV antibiotics from Infectious Diseases for antibiotic management. Patient does not remember what antibiotic that he is currently on. Will obtain note from ID. Followup [address] Arechiga's previous note: He has a new Roho cushion for his wheelchair. He has a memory foam mattress at home. He states a hospital low air loss bed won't fit into their trailer. His mother states that he never has any red areas or pressure areas when he is in bed. A memory foam mattress is not adequate for a Stage IV pressure sore. When the wound is closed with muscle flaps, a hospital low air loss bed is paramount. Otherwise the memory foam mattress will place extra pressure on the surgical incision, and there is a very high likelihood that the flap would fail. The patient and family are anxious for wound closure. Stressed the importance of control of infection, maximize the nutrition, and have proper low air loss bed before considering wound closure. I anticipate wound closure in 6 months, tentative. Initially will need another excision along with partial ostectomy to evaluate for osteomyelitis. The gluteus apollo V-Y myocutaneous flaps appear to be maximally advanced. Not sure how much advancement I will get for closure even by mobilizing and advancing both gluteus apollo myocutaneous flaps. Vastus lateralis muscular flaps can be used as well. However its blood supply is in the proximal thigh. He has bilateral incisions from previous hip surgery. Don't know preop whether these muscle flaps will be able to be used because of previous surgical dissection that may have compromised the proximal blood supply to the vastus lateralis muscle. So when the muscle is elevated from distal to proximal, there is a chance the muscle won't survive because of compromised proximal blood supply. Ultimately the last resort would be a total thigh flap to provide enough soft tissue to close the pressure sore. The flap necessitates an amputation. The mother stated that they are not in favor of an amputation. The patient may benefit from being evaluated at a tertiary center for possible wound closure with microvascular free tissue transfer if the above mentioned muscles end up being inadequate for complete wound closure. At the time of the excision of the pressure sore in preparation for wound closure with muscle flaps, will check a Prealbumin and send soft tissue and bone to Pathology as well as to Microbiology. A positive culture will necessitate antibiotic therapy. Usually can then proceed with the muscle flap closure in about 2 weeks after the excision. However if Pseudomonas is present or MRSA is present, then would need to treat for 6 weeks before thinking about wound closure.
[2023-08-05 13:18] VITALS: BP 103/61; PULSE 102; RESP 18; TEMP 36.6; BMI 23.7
--- NOTE | 2023-08-05 14:56 | PCM.WC.PN ---
History of Present Illness Date of Service: 08/05/23 Chief Complaint: Recurrent left sacral pressure sore, Stage IV. History of Wound: 27 year old man with a history of Spina bifida presented to the Wound Center with a recurrent left sacral pressure sore that started a couple of months ago according to the patient. He bumped his buttocks sometime during the summer and did not tell his mother until it was infected and draining. He initially went to [facility] in April,, and was hospitalized 3 days for IV antibiotics with Meropenem and Clindamycin. Also received a dose of Vancomycin in the ED and had a skin rash. CT showed a rim-enhancing perirectal fluid collection measuring 3.9 x 6.2 cm, compatible with an abscess. He was transferred to [facility] where an I&D was performed. He has a history of Spina bifida which he has had bilateral hip surgery for hip dysplasia at age 8 and another surgery on legs bilaterally to help him wear braces to stand, which he never has been able to do. He had a sacral muscle flap at age 14 at [facility] for an ulcer. Also has a history of hydrocephalous with a shunt. Surgery 07/16/22 - Excision recurrent left sacral pressure sore, Stage IV, with partial ostectomy for osteomyelitis. Wound Care - [facility]. Operative tissue and bone cultures from 07/16/22 were positive for Enterobacter cloacae complex. He was treated with Levaquin. Pathology from 07/16/22 showed chronic reparative and reactive change. No evidence of acute osteomyelitis. Recent wound culture from 05/27/23 showed MDR Acinetobacter baumannii, Enterococcus faecalis, and Methicillin resistant Staphylococcus haemolyticus. Infectious Diseases has been consulted to assist with antibiotic management (PO vs IV). Prealbumin from 07/17/22 was 14.6. Encourage nutritional supplementation with protein to help the healing process. CT Abdomen/Pelvis from 01/29/23 - There is sclerosis of the underlying sacrum suggestive of possible chronic osteomyelitis. There is superior migration of the proximal left femur. There is deformity of the proximal left femur with the old fracture of the left femoral head. Today denies fever. His appetite is ok. Progress of Wound: Ulcer is stable. Wound bed is beefy pink. Objective Data Objective Data Vital Signs: Vital Signs Temp Pulse Resp BP 97.8 F 102 H 18 103/61 08/05/23 13:18 08/05/23 13:18 08/05/23 13:18 08/05/23 13:18 Weight: 175 lb Body Mass Index (BMI) 23.7 Charges/Coding Procedures Integumentary [id number]: 72111 Camelia musc/fascia 20 sq cm/< (ICD-10 - L89.154, Q05.9, Z99.3, G91.9) Add On Codes: 52068 Camelia musc/fascia add-on (x6 Units) (ICD-10 - L89.154, Q05.9, Z99.3, G91.9) Debridement Note Debridement Note Wound debrided: #1 Sacral area. Laterality: Not Applicable Wound Grade/Stage: IV. Type of Debridement: Excisional debridement Anesthesia Used: 4% Lidocaine Solution Depth: Down to and including healthy tissue, in the subcutaneous layer, to muscle and to bone (bone is palpable but not exposed and not debrided.) Percentage of wound debrided: 100 Instrument Used: 7mm curette Tissue Removed: subcutaneous tissue and muscle. Severity: Fat Layer Exposed (muscle is exposed. bone is palpable but not exposed and not debrided.) Amount of bleeding with debridement: Mild Bleeding Controlled with: Pressure, Compression and gauze and Silver Nitrate (Silver Nitrate used at 2 o'clock area where there was some hypergranulation tissue present) Patient tolerated procedure: Patient tolerated procedure well Debridement Free Text: Ulcer into the muscle with bone palpable but covered with granulation tissue. Post-Debridement Measurements and Additional Note: Post-Debridement Measurements/Treatment - Nurse 1 - General Ulcer Assessment Start: 07/22/23 13:20 Freq: Status: Active Protocol: ANDREW Activity Type Activity Date Activity User E-sign Co-sign Detail Recorded Client Recorded Date Recorded By Document 07/22/23 13:20 RB Desktop 07/22/23 13:37 RB Document 08/05/23 13:18 RB Desktop 08/05/23 13:21 RB 07/22/23 08/05/23 13:20 13:18 - Today's Visit Information Type of service Follow-up Visit Follow-up Visit (Physician/RECYCLING PROGRAM MANAGER (Physician/RECYCLING PROGRAM MANAGER ) ) Arrival Mode Ambulatory Wheelchair Transfer Assistance None Manual Patient Identification Verified (Name & Yes Yes ) Patient Requires Transmission-Based No No Precautions Height and Weight Body Mass Index (BMI) 23.7 23.7 BMI Classification Normal Normal Vital Signs Temperature (97.8 F-99.1 F) 97.6 F L 97.8 F Temperature Source Temporal Temporal Pulse Rate (60-100) 108 H 102 H Pulse Location Monitor Monitor Respiratory Rate (12-18) 18 18 Respiratory rate source Observation Observation Blood Pressure (90/60-120/80) 114/67 103/61 Blood Pressure Mean (mm Hg) 82 75 Source Monitor Monitor Position Sitting Semi-Fowlers Blood Pressure Location Right Arm Left Arm History Since Last Visit- (Skip if this is Patient's initial visit) Have you changed medications since your No No last visit? Any new allergies or adverse reactions No No Had a fall/change in ADL's that may No No increase risk of falls Signs or symptoms of abuse and/or No No neglect since last visit Have you been in the hospital since your No No last visit? Has dressing in place as prescribed Yes Yes Has compression in place as prescribed No No Has offloadiing in place as prescribed No No Experienced any changes in pain level or No No management Pain Scale: 0-10 Numeric Is Patient Pain Free? Yes Yes WC - Nurse 1 - General Ulcer Measurement Start: 07/22/23 13:20 Freq: Status: Active Protocol: Activity Type Activity Date Activity User E-sign Co-sign Detail Recorded Client Recorded Date Recorded By Document 07/22/23 13:20 RB Desktop 07/22/23 13:37 RB Document 08/05/23 13:18 RB Desktop 08/05/23 13:21 RB 07/22/23 08/05/23 13:20 13:18 Wound Center Nurse 1 #1 sacrum -Combined with other wound No No -Current Size (cm) - Length 13 10.5 -Current Size (cm) - Width 9 7.5 -Current Size (cm) - Depth 4.1 5 -Total Square Cm 117 78.75 -Tunneling No No -Undermining/Tunneling Yes Yes -Undermining/Tunneling Starts (O'clock 10 1 ) -Undermining/Tunneling Ends (O'clock) 2 5 -Maximum Distance (cm) 7.1 6.5 -Circular Undermining No -Exudate Amt Large Medium -Exudate Type Serosanguineous Serosanguineous -Wound Margin Thickened & Thickened & Rolled Under Rolled Under -Granulation Amt Large (67-100%) Medium (34-66%) -Granulation Quality [place],Red [place] -Slough/Fibrin Yes Yes -Necrosis Amt Medium (34-66%) Medium (34-66%) -Necrotic Tissue Type Adherent Slough Adherent Slough -Structure Exposed Bone Bone -Texture (Meliza-wound Skin Appearance) Assessed Assessed, Scarring -Moisture (Meliza-wound Skin Appearance) Assessed Assessed -Color (Meliza-wound Skin Appearance) Assessed Assessed -Temperature (Meliza-wound Skin No Abnormality No Abnormality Appearance) (Pt Warm) (Pt Warm) -Tenderness on Palpation (Meliza-wound No No Skin Appearance) -Ulcer Cleansing Wound Cleanser Wound Cleanser -Foul Odor after Cleansing Yes, Due to No Product Use -Anesthetic Used 4% Lidocaine 5% Lidocaine Solution Gel WC - Nurse 2 - General Ulcer CM Notes Start: 07/22/23 13:20 Freq: Status: Active Protocol: Activity Type Activity Date Activity User E-sign Co-sign Detail Recorded Client Recorded Date Recorded By Document 07/22/23 13:51 Laptop 07/22/23 13:56 Edit Result 07/22/23 13:51 JF (1) Laptop 07/22/23 13:56 JF Document 08/05/23 13:32 JF Laptop 08/05/23 13:43 JF (1) #1 sacrum - Debridement, Muscle/Fascia, ea addt'l => 4 20sq cm or part thereof 07/22/23 08/05/23 13:51 13:32 Wound Center Nurse 2 #1 sacrum -Time 13:51 13:33 -Correct Patient Yes Yes -Correct Side, Site, Position Yes Yes -Correct Procedure Yes Yes -Procedure Performed Yes Yes -Type of Procedure Debridement Debridement -Clinical Debridement Muscle / Fascia Muscle / Fascia -Tissue Removed Muscle,Fascia Muscle,Fascia -Post Debridement (cm) - Length 12 11 -Post Debridement (cm) - Width 8 11 -Post Debridement (cm) - Depth 3.6 4.5 -Total Square (Post) (cm) 96 121 -Area of Debridement (cm) - Length 12 11 -Area of Debridement (cm) - Width 8 11 -Total Square (Area) (cm) 96 121 -Tunneling No No -Undermining/Tunneling Yes Yes -Undermining/Tunneling Starts (O'clock 9 12 ) -Undermining/Tunneling Ends (O'clock) 12 3 -Maximum Distance (cm) 5.6 6.7 -Circular Undermining No No -Wound/Ulcer Outcome Not Healed Not Healed -Ulcer Cleansing Rinsed/ Rinsed/ Irrigated with Irrigated with Saline Saline -Foul Odor after Cleansing No No -Bioengineered Tissue No No -Bleeding Controlled with Pressure Pressure -Treatment Response Procedure Procedure Tolerated Well Tolerated Well -Offloading No No -Pressure Reduction Wheelchair Wheelchair cushion cushion -Debridement - Muscle / Fascia, 1st Yes Yes 20sq cm -Debridement, Muscle/Fascia, ea addt'l 4 6 20sq cm or part thereof Pain Scale: 0-10 Numeric Is Patient Pain Free? Yes Yes - Nurse 3 - General Ulcer D/C NN Start: 07/22/23 13:20 Freq: Status: Active Protocol: Activity Type Activity Date Activity User E-sign Co-sign Detail Recorded Client Recorded Date Recorded By Document 07/22/23 14:17 RB Desktop 07/22/23 14:19 RB Document 08/05/23 13:51 KW Desktop 08/05/23 13:51 07/22/23 08/05/23 14:17 13:51 Wound Care Center Nurse 3 #1 sacrum -Ulcer Cleansing Rinsed/ Irrigated with Saline -Primary Dressing Applied Hysept ($) -Other Dressing dakins moistened gauze -Primary Dressing Covered/Secured with Dry Gauze,Dry Dry Gauze, Gauze & Roll Secured with Gauze,Secured Tape with Tape -Other Covering abd Treatment Response Procedure Tolerated Well Pain Scale: 0-10 Numeric Is Patient Pain Free? Yes Yes - Visit Discharge Discharge Condition Stable Stable Ambulatory Status Wheelchair Wheelchair Transportation Private Auto Private Auto Medication Reconcilliation completed & No No provided to patient/care provider Clinical Summary of Care Provided Yes Yes Notes: assist per 2 nurses to w/c Additional Wound Tissue Removed: Non viable tissue and slough Assessment/Plan Assessment/Plan (1) Stage IV pressure ulcer of sacral region: CODE(S): L89.154 - Pressure ulcer of sacral region, stage 4 (2) Spina bifida: CODE(S): Q05.9 - Spina bifida, unspecified QUALIFIERS: Spinal region: lumbosacral Presence of hydrocephalus: with hydrocephalus Qualified Code(s): Q05.2 - Lumbar spina bifida with hydrocephalus (3) Wheelchair dependence: CODE(S): Z99.3 - Dependence on wheelchair (4) Hydrocephalus: CODE(S): G91.9 - Hydrocephalus, unspecified QUALIFIERS: Hydrocephalus type: unspecified Qualified Code(s): G91.9 - Hydrocephalus, unspecified PLAN: Plan Wound care - Dakins dressing changes daily. Had a wound culture on 05/27/23. It showed MDR Acinetobacter baumannii, Enterococcus faecalis, and Methicillin resistant Staphylococcus haemolyticus. He is on IV antibiotics from Infectious Diseases for antibiotic management. Patient is on Meropenem, which he completes next week. Followup [address] Arechiga's previous note: He has a new Roho cushion for his wheelchair. He has a memory foam mattress at home. He states a hospital low air loss bed won't fit into their trailer. His mother states that he never has any red areas or pressure areas when he is in bed. A memory foam mattress is not adequate for a Stage IV pressure sore. When the wound is closed with muscle flaps, a hospital low air loss bed is paramount. Otherwise the memory foam mattress will place extra pressure on the surgical incision, and there is a very high likelihood that the flap would fail. The patient and family are anxious for wound closure. Stressed the importance of control of infection, maximize the nutrition, and have proper low air loss bed before considering wound closure. I anticipate wound closure in 6 months, tentative. Initially will need another excision along with partial ostectomy to evaluate for osteomyelitis. The gluteus apollo V-Y myocutaneous flaps appear to be maximally advanced. Not sure how much advancement I will get for closure even by mobilizing and advancing both gluteus apollo myocutaneous flaps. Vastus lateralis muscular flaps can be used as well. However its blood supply is in the proximal thigh. He has bilateral incisions from previous hip surgery. Don't know preop whether these muscle flaps will be able to be used because of previous surgical dissection that may have compromised the proximal blood supply to the vastus lateralis muscle. So when the muscle is elevated from distal to proximal, there is a chance the muscle won't survive because of compromised proximal blood supply. Ultimately the last resort would be a total thigh flap to provide enough soft tissue to close the pressure sore. The flap necessitates an amputation. The mother stated that they are not in favor of an amputation. The patient may benefit from being evaluated at a tertiary center for possible wound closure with microvascular free tissue transfer if the above mentioned muscles end up being inadequate for complete wound closure. At the time of the excision of the pressure sore in preparation for wound closure with muscle flaps, will check a Prealbumin and send soft tissue and bone to Pathology as well as to Microbiology. A positive culture will necessitate antibiotic therapy. Usually can then proceed with the muscle flap closure in about 2 weeks after the excision. However if Pseudomonas is present or MRSA is present, then would need to treat for 6 weeks before thinking about wound closure.
== END 2023-08-14 23:59 | disposition home or self-care (01) ==
LOC: WC 13:00
PROVIDERS: PCP Internal Medicine; Visit Provider Surgery
DX: L89.154 Pressure ulcer of sacral region, stage 4 (principal); Q05.2 Lumbar spina bifida with hydrocephalus; Z99.3 Dependence on wheelchair
CPT/HCPCS: 11043; 11046

== ENCOUNTER 2023-09-02 13:15 | Outpatient (RCR) | payer MEDICARE, MEDICAID, SELFPAY ==
[2023-08-15 00:15] VITALS: BP 103/61; PULSE 102; RESP 18; TEMP 36.6; BMI 23.7
[2023-08-19 13:52] VITALS: BP 86/62; PULSE 111; RESP 18; TEMP 37.6; BMI 23.7
--- NOTE | 2023-08-19 15:23 | PCM.WC.PN ---
History of Present Illness Date of Service: 08/19/23 Chief Complaint: Recurrent left sacral pressure sore, Stage IV. History of Wound: 27 year old man with a history of Spina bifida presented to the [facility]ound [facility] with a recurrent left sacral pressure sore that started a couple of months ago according to the patient. He bumped his buttocks sometime during the summer and did not tell his mother until it was infected and draining. He initially went to [facility] in April,, and was hospitalized 3 days for IV antibiotics with Meropenem and Clindamycin. Also received a dose of Vancomycin in the ED and had a skin rash. CT showed a rim-enhancing perirectal fluid collection measuring 3.9 x 6.2 cm, compatible with an abscess. He was transferred to [facility] where an I&D was performed. He has a history of Spina bifida which he has had bilateral hip surgery for hip dysplasia at age 8 and another surgery on legs bilaterally to help him wear braces to stand, which he never has been able to do. He had a sacral muscle flap at age 14 at [facility] for an ulcer. Also has a history of hydrocephalous with a shunt. Surgery 07/16/22 - Excision recurrent left sacral pressure sore, Stage IV, with partial ostectomy for osteomyelitis. Wound Care - [facility]. Operative tissue and bone cultures from 07/16/22 were positive for Enterobacter cloacae complex. He was treated with Levaquin. Pathology from 07/16/22 showed chronic reparative and reactive change. No evidence of acute osteomyelitis. Recent wound culture from 05/27/23 showed MDR Acinetobacter baumannii, Enterococcus faecalis, and Methicillin resistant Staphylococcus haemolyticus. Infectious Diseases has been consulted to assist with antibiotic management (PO vs IV). Prealbumin from 07/17/22 was 14.6. Encourage nutritional supplementation with protein to help the healing process. CT Abdomen/Pelvis from 01/29/23 - There is sclerosis of the underlying sacrum suggestive of possible chronic osteomyelitis. There is superior migration of the proximal left femur. There is deformity of the proximal left femur with the old fracture of the left femoral head. Today denies fever. His appetite is ok. Progress of Wound: Sacral ulcer is stable. There are multiple areas in the ulcer that pocket full of bloody fluid, they appear almost like blood blisters. Most likely caused by sitting on ulcer too long. He has a new area on his mid lower back with scabbing that is sensitive to palpation and has scabbing present. Denies any trauma. Not erythematous. His mother would like to be having this ulcer closed. Discussed the need to send him to a tertiary center since we currently do not have a plastic surgeon in [facility] that will do flap. She would prefer to go to [place] than [place]. Objective Data Objective Data Vital Signs: Vital Signs Temp Pulse Resp BP 99.7 F H 111 H 18 86/62 L 08/19/23 13:52 08/19/23 13:52 08/19/23 13:52 08/19/23 13:52 Weight: 175 lb Body Mass Index (BMI) 23.7 Charges/Coding Procedures Integumentary [id number]: 66143 Camelia musc/fascia 20 sq cm/< ( sacral ulcer ICD-10 - L89.154, Q05.9, Z99.3, G91.9) Add On Codes: 65016 Camelia musc/fascia add-on (x6 Units) (ICD-10 - L89.154, Q05.9, Z99.3, G91.9) Multi Select Codes Integumentary Integumentary CPT Codes: 15040 Camelia subq tissue 20 sq cm/< (midline lower back wound) Addendum Addendum: 29108 x 1 midline lower back Debridement Note Debridement Note Wound debrided: #1 Sacral area. Laterality: Not Applicable Wound Grade/Stage: IV. Type of Debridement: Excisional debridement Anesthesia Used: 4% Lidocaine Solution Depth: Down to and including healthy tissue, in the subcutaneous layer, to muscle and to bone (bone is palpable but not exposed and not debrided.) Percentage of wound debrided: 100 Instrument Used: 7mm curette Tissue Removed: subcutaneous tissue and muscle. Severity: Fat Layer Exposed (muscle is exposed. bone is palpable but not exposed and not debrided.) Amount of bleeding with debridement: Mild Bleeding Controlled with: Pressure, Compression and gauze and Silver Nitrate (Silver Nitrate used at 2 o'clock area.) Patient tolerated procedure: Patient tolerated procedure well Debridement Free Text: Ulcer into the muscle with bone palpable but covered with granulation tissue. Post-Debridement Measurements and Additional Note: Post-Debridement Measurements/Treatment WC - Nurse 1 - General Ulcer Assessment Start: 08/19/23 13:52 Freq: Status: Active Protocol: DICK Activity Type Activity Date Activity User E-sign Co-sign Detail Recorded Client Recorded Date Recorded By Document 08/19/23 13:52 [email or web address] 08/19/23 13:56 08/19/23 13:52 - Today's Visit Information Type of service Follow-up Visit (Physician/OSTOMY CARE NURSE ) Arrival Mode Wheelchair Transfer Assistance None Patient Identification Verified (Name & Yes ) Patient Requires Transmission-Based No Precautions Height and Weight Body Mass Index (BMI) 23.7 BMI Classification Normal Vital Signs Temperature (97.8 F-99.1 F) 99.7 F H Temperature Source Temporal Pulse Rate (60-100) 111 H Pulse Location Monitor Respiratory Rate (12-18) 18 Respiratory rate source Observation Blood Pressure (90/60-120/80) 86/62 L Blood Pressure Mean (mm Hg) 70 Source Monitor Position Semi-Fowlers Blood Pressure Location Right Arm History Since Last Visit- (Skip if this is Patient's initial visit) Have you changed medications since your No last visit? Any new allergies or adverse reactions No Had a fall/change in ADL's that may No increase risk of falls Signs or symptoms of abuse and/or No neglect since last visit Have you been in the hospital since your No last visit? Has dressing in place as prescribed Yes Has compression in place as prescribed No Has offloadiing in place as prescribed No Experienced any changes in pain level or No management Pain Scale: 0-10 Numeric Is Patient Pain Free? Yes - Nurse 1 - General Ulcer Measurement Start: 08/19/23 13:52 Freq: Status: Active Protocol: Activity Type Activity Date Activity User E-sign Co-sign Detail Recorded Client Recorded Date Recorded By Document 08/19/23 13:52 [email or web address] 08/19/23 13:56 08/19/23 13:52 Wound Center Nurse 1 #3- SCROTAL -Combined with other wound No -Current Size (cm) - Length 0.1 -Current Size (cm) - Width 0.1 -Current Size (cm) - Depth 0.1 -Total Square Cm 0.01 -Tunneling No -Undermining/Tunneling No -Circular Undermining No -Exudate Amt Small -Exudate Type Serosanguineous -Wound Margin Distinct, Outline Attached -Granulation Amt Large (67-100%) -Granulation Quality [place] -Slough/Fibrin Yes -Necrosis Amt Medium (34-66%) -Necrotic Tissue Type Adherent Slough -Structure Exposed N/A -Texture (Meliza-wound Skin Appearance) Assessed -Moisture (Meliza-wound Skin Appearance) Assessed -Color (Meliza-wound Skin Appearance) Assessed -Temperature (Meliza-wound Skin No Abnormality Appearance) (Pt Warm) -Tenderness on Palpation (Meliza-wound No Skin Appearance) -Ulcer Cleansing Wound Cleanser -Foul Odor after Cleansing No #1 sacrum -Combined with other wound No -Current Size (cm) - Length 11 -Current Size (cm) - Width 7.5 -Current Size (cm) - Depth 3.5 -Total Square Cm 82.5 -Photo Taken Yes -Tunneling No -Undermining/Tunneling No -Circular Undermining No -Exudate Amt Large -Exudate Type Serosanguineous -Wound Margin Thickened & Rolled Under -Granulation Amt Medium (34-66%) -Granulation Quality [place] -Slough/Fibrin Yes -Necrosis Amt Medium (34-66%) -Necrotic Tissue Type Adherent Slough -Structure Exposed N/A -Texture (Meliza-wound Skin Appearance) Assessed -Moisture (Meliza-wound Skin Appearance) Assessed -Color (Meliza-wound Skin Appearance) Assessed -Temperature (Meliza-wound Skin No Abnormality Appearance) (Pt Warm) -Tenderness on Palpation (Meliza-wound No Skin Appearance) -Ulcer Cleansing Wound Cleanser -Foul Odor after Cleansing No -Anesthetic Used 5% Lidocaine Gel WC - Nurse 2 - General Ulcer CM Notes Start: 08/19/23 13:52 Freq: Status: Active Protocol: Activity Type Activity Date Activity User E-sign Co-sign Detail Recorded Client Recorded Date Recorded By Document 08/19/23 14:34 Laptop 08/19/23 14:47 08/19/23 14:34 Wound Center Nurse 2 #3- SCROTAL -Correct Patient No -Correct Side, Site, Position No -Correct Procedure No -Procedure Performed No -Post Debridement (cm) - Length 0 -Post Debridement (cm) - Width 0 -Post Debridement (cm) - Depth 0 -Total Square (Post) (cm) 0 -Area of Debridement (cm) - Length 0 -Area of Debridement (cm) - Width 0 -Total Square (Area) (cm) 0 -Wound/Ulcer Outcome Healed- Epithelialized 4-lower back -Time 14:45 -Correct Patient Yes -Correct Side, Site, Position Yes -Correct Procedure Yes -Procedure Performed Yes -Type of Procedure Debridement -Clinical Debridement Subcutaneous -Tissue Removed Subcutaneous -Post Debridement (cm) - Length 4.5 -Post Debridement (cm) - Width 4.5 -Post Debridement (cm) - Depth 0.1 -Total Square (Post) (cm) 20.25 -Area of Debridement (cm) - Length 4.5 -Area of Debridement (cm) - Width 4.5 -Total Square (Area) (cm) 20.25 -Tunneling No -Undermining/Tunneling No -Circular Undermining No -Wound/Ulcer Outcome Not Healed -Ulcer Cleansing Rinsed/ Irrigated with Saline -Foul Odor after Cleansing No -Bioengineered Tissue No -Bleeding Controlled with Pressure -Treatment Response Procedure Tolerated Well -Offloading No -Debridement - Subq, 1st 20sq cm Yes -Debridement, SubQ, ea addt'l 20sq cm 1 or part thereof #1 sacrum -Time 14:35 -Correct Patient Yes -Correct Side, Site, Position Yes -Correct Procedure Yes -Procedure Performed Yes -Type of Procedure Debridement -Clinical Debridement Muscle / Fascia -Tissue Removed Muscle,Fascia -Post Debridement (cm) - Length 14 -Post Debridement (cm) - Width 10 -Post Debridement (cm) - Depth 2.8 -Total Square (Post) (cm) 140 -Area of Debridement (cm) - Length 14 -Area of Debridement (cm) - Width 10 -Total Square (Area) (cm) 140 -Tunneling No -Undermining/Tunneling Yes -Undermining/Tunneling Starts (O'clock 3 ) -Maximum Distance (cm) 6.2 -Circular Undermining No -Wound/Ulcer Outcome Not Healed -Ulcer Cleansing Rinsed/ Irrigated with Saline -Foul Odor after Cleansing No -Bioengineered Tissue No -Bleeding Controlled with Pressure,Silver Nitrate -Treatment Response Procedure Tolerated Well -Offloading No -Pressure Reduction Wheelchair cushion -Debridement - Muscle / Fascia, 1st Yes 20sq cm -Debridement, Muscle/Fascia, ea addt'l 6 20sq cm or part thereof Pain Scale: 0-10 Numeric Is Patient Pain Free? Yes Additional Wound Wound debrided: lower mid back Laterality: Not Applicable Type of Debridement: Excisional debridement Anesthesia Used: 5% Lidocaine Gel Depth: Down to and including healthy tissue and in the subcutaneous layer Percentage of wound debrided: 100 Instrument Used: 5mm curette Tissue Removed: Non viable tissue and slough Severity: Limited To Skin Breakdown Amount of bleeding with debridement: Mild Bleeding Controlled with: Compression and gauze Patient tolerated procedure: Patient tolerated procedure well Operative Diagnosis: removed scabbing and non viable tissue, under scabbing area is superficial Assessment/Plan Assessment/Plan (1) Stage IV pressure ulcer of sacral region: CODE(S): L89.154 - Pressure ulcer of sacral region, stage 4 (2) Spina bifida: CODE(S): Q05.9 - Spina bifida, unspecified QUALIFIERS: Spinal region: lumbosacral Presence of hydrocephalus: with hydrocephalus Qualified Code(s): Q05.2 - Lumbar spina bifida with hydrocephalus (3) Wheelchair dependence: CODE(S): Z99.3 - Dependence on wheelchair (4) Hydrocephalus: CODE(S): G91.9 - Hydrocephalus, unspecified QUALIFIERS: Hydrocephalus type: unspecified Qualified Code(s): G91.9 - Hydrocephalus, unspecified (5) Excoriation of back: CODE(S): S20.419A - Abrasion of unspecified back wall of thorax, initial encounter PLAN: Plan Wound care - Dakins moistened gauze dressing changes daily after washing with soap and water to sacral ulcer. Lower back excoriation is superficial, start collagen hydrogel covered with gauze daily after washing with soap and water. Had a wound culture on 05/27/23. It showed MDR Acinetobacter baumannii, Enterococcus faecalis, and Methicillin resistant Staphylococcus haemolyticus. He is on IV antibiotics from Infectious Diseases for antibiotic management. Patient completed Meropenem. Will refer him to plastics at [facility] for evaluation for closure of flap. Did express to patient and his mother that he really needs to be off loading and staying off this ulcer. Stressed importance of a low air loss mattress. The foam mattress he is on is not helping relieve pressure from his ulcer. We have had this discussion in the past but his mother does not want the bed because it would not fit in his room and it would have to be in their living room. Had discussion with mom that she needs to be involved with medical decisions for Latonya, especially when he gets admitted to the hospital due to his cognitive issues of understanding everything that is discussed with him. She verbalized understanding. I stressed that she needs to let the hospital know to call and discuss his medical care with her because he does not always comprehend what is being said and he also does not remember what was discussed. Unsure if she has power of commercial attorney over his medical care. Followup [address] Arechiga's previous note: He has a new Roho cushion for his wheelchair. He has a memory foam mattress at home. He states a hospital low air loss bed won't fit into their trailer. His mother states that he never has any red areas or pressure areas when he is in bed. A memory foam mattress is not adequate for a Stage IV pressure sore. When the wound is closed with muscle flaps, a hospital low air loss bed is paramount. Otherwise the memory foam mattress will place extra pressure on the surgical incision, and there is a very high likelihood that the flap would fail. The patient and family are anxious for wound closure. Stressed the importance of control of infection, maximize the nutrition, and have proper low air loss bed before considering wound closure. I anticipate wound closure in 6 months, tentative. Initially will need another excision along with partial ostectomy to evaluate for osteomyelitis. The gluteus apollo V-Y myocutaneous flaps appear to be maximally advanced. Not sure how much advancement I will get for closure even by mobilizing and advancing both gluteus apollo myocutaneous flaps. Vastus lateralis muscular flaps can be used as well. However its blood supply is in the proximal thigh. He has bilateral incisions from previous hip surgery. Don't know preop whether these muscle flaps will be able to be used because of previous surgical dissection that may have compromised the proximal blood supply to the vastus lateralis muscle. So when the muscle is elevated from distal to proximal, there is a chance the muscle won't survive because of compromised proximal blood supply. Ultimately the last resort would be a total thigh flap to provide enough soft tissue to close the pressure sore. The flap necessitates an amputation. The mother stated that they are not in favor of an amputation. The patient may benefit from being evaluated at a tertiary center for possible wound closure with microvascular free tissue transfer if the above mentioned muscles end up being inadequate for complete wound closure. At the time of the excision of the pressure sore in preparation for wound closure with muscle flaps, will check a Prealbumin and send soft tissue and bone to Pathology as well as to Microbiology. A positive culture will necessitate antibiotic therapy. Usually can then proceed with the muscle flap closure in about 2 weeks after the excision. However if Pseudomonas is present or MRSA is present, then would need to treat for 6 weeks before thinking about wound closure.
[2023-09-02 13:16] VITALS: BP 109/48; PULSE 104; RESP 18; TEMP 36.2; BMI 23.7
--- NOTE | 2023-09-02 15:40 | PN.PCM_ITS ---
History of Present Illness Date of Service: 09/02/23 Chief Complaint: Recurrent left sacral pressure sore, Stage IV. History of Wound: 27 year old man with a history of Spina bifida presented to the [facility] with a recurrent left sacral pressure sore that started a couple of months ago according to the patient. He bumped his buttocks sometime during the summer and did not tell his mother until it was infected and draining. He initially went to [facility] in April,, and was hospitalized 3 days for IV antibiotics with Meropenem and Clindamycin. Also received a dose of Vancomycin in the ED and had a skin rash. CT showed a rim- enhancing perirectal fluid collection measuring 3.9 x 6.2 cm, compatible with an abscess. He was transferred to [facility] where an I&D was performed. He has a history of Spina bifida which he has had bilateral hip surgery for hip dysplasia at age 8 and another surgery on legs bilaterally to help him wear braces to stand, which he never has been able to do. He had a sacral muscle flap at age 14 at [facility] for an ulcer. Also has a history of hydrocephalous with a shunt. Surgery 07/16/22 - Excision recurrent left sacral pressure sore, Stage IV, with partial ostectomy for osteomyelitis. Wound Care - [facility]. Operative tissue and bone cultures from 07/16/22 were positive for Enterobacter cloacae complex. He was treated with Levaquin. Pathology from 07/16/22 showed chronic reparative and reactive change. No evidence of acute osteomyelitis. Recent wound culture from 05/27/23 showed MDR Acinetobacter baumannii, Enterococcus faecalis, and Methicillin resistant Staphylococcus haemolyticus. Infectious Diseases has been consulted to assist with antibiotic management (PO vs IV). Prealbumin from 07/17/22 was 14.6. Encourage nutritional supplementation with protein to help the healing process. CT Abdomen/Pelvis from 01/29/23 - There is sclerosis of the underlying sacrum suggestive of possible chronic osteomyelitis. There is superior migration of the proximal left femur. There is deformity of the proximal left femur with the old fracture of the left femoral head. Today denies fever. His appetite is ok. Progress of Wound: Sacral ulcer is stable. Ulcer bed is beefy pink. The area on his mid lower back with scabbing has healed. He now has a pink area that clinically looks like yeast. This is in an area where his diaper covers the skin. They are still waiting to hear from Yvonne Du about a consult for his possible flap closure. Objective Data Objective Data Vital Signs: Vital Signs Temp Pulse Resp BP 97.2 F L 104 H 18 109/48 L 09/02/23 13:16 09/02/23 13:16 09/02/23 13:16 09/02/23 13:16 Weight: 175 lb Body Mass Index (BMI) 23.7 Charges/Coding Procedures Integumentary [id number]: [id number] Camelia musc/fascia 20 sq cm/< ( sacral ulcer ICD-10 - L89.154, Q05.9, Z99.3, G91.9) Add On Codes: 62166 Camelia musc/fascia add-on (x4 Units) (ICD-10 - L89.154, Q05.9, Z99.3, G91.9) Debridement Note Debridement Note Wound debrided: #1 Sacral area. Laterality: Not Applicable Wound Grade/Stage: IV. Type of Debridement: Excisional debridement Anesthesia Used: 4% Lidocaine Solution Depth: Down to and including healthy tissue, in the subcutaneous layer, to muscle and to bone (bone is palpable but not exposed and not debrided.) Percentage of wound debrided: 100 Instrument Used: 7mm curette Tissue Removed: subcutaneous tissue and muscle. Severity: Fat Layer Exposed (muscle is exposed. bone is palpable but not exposed and not debrided.) Amount of bleeding with debridement: Mild Bleeding Controlled with: Pressure, Compression and gauze and Silver Nitrate (Silver Nitrate used at 2 o'clock area.) Patient tolerated procedure: Patient tolerated procedure well Debridement Free Text: Ulcer into the muscle with bone palpable but covered with granulation tissue. Post-Debridement Measurements and Additional Note: Post-Debridement Measurements/Treatment WC - Nurse 1 - General Ulcer Assessment Start: 08/19/23 13:52 Freq: Status: Active Protocol: ANDREW Activity Type Activity Date Activity User E-sign Co-sign Detail Recorded Client Recorded Date Recorded By Document 08/19/23 13:52 RB Desktop 08/19/23 13:56 RB Document 09/02/23 13:16 RB Desktop 09/02/23 13:20 RB 08/19/23 09/02/23 13:52 13:16 - Today's Visit Information Type of service Follow-up Visit Follow-up Visit (Physician/INFORMATION RESOURCES DIRECTOR (Physician/INFORMATION RESOURCES DIRECTOR ) ) Arrival Mode Wheelchair Wheelchair Transfer Assistance None Manual Patient Identification Verified (Name & Yes Yes ) Patient Requires Transmission-Based No No Precautions Height and Weight Body Mass Index (BMI) 23.7 23.7 BMI Classification Normal Normal Vital Signs Temperature (97.8 F-99.1 F) 99.7 F H 97.2 F L Temperature Source Temporal Temporal Pulse Rate (60-100) 111 H 104 H Pulse Location Monitor Monitor Respiratory Rate (12-18) 18 18 Respiratory rate source Observation Observation Blood Pressure (90/60-120/80) 86/62 L 109/48 L Blood Pressure Mean (mm Hg) 70 68 Source Monitor Monitor Position Semi-Fowlers Sitting Blood Pressure Location Right Arm Left Arm History Since Last Visit- (Skip if this is Patient's initial visit) Have you changed medications since your No No last visit? Any new allergies or adverse reactions No No Had a fall/change in ADL's that may No No increase risk of falls Signs or symptoms of abuse and/or No No neglect since last visit Have you been in the hospital since your No No last visit? Has dressing in place as prescribed Yes Yes Has compression in place as prescribed No No Has offloadiing in place as prescribed No No Experienced any changes in pain level or No No management Pain Scale: 0-10 Numeric Is Patient Pain Free? Yes Yes - Nurse 1 - General Ulcer Measurement Start: 08/19/23 13:52 Freq: Status: Active Protocol: Activity Type Activity Date Activity User E-sign Co-sign Detail Recorded Client Recorded Date Recorded By Document 08/19/23 13:52 RB Desktop 08/19/23 13:56 RB Document 09/02/23 13:16 RB Desktop 09/02/23 13:20 RB 08/19/23 09/02/23 13:52 13:16 Wound Center Nurse 1 4-lower back -Combined with other wound No -Current Size (cm) - Length 0 -Current Size (cm) - Width 0 -Current Size (cm) - Depth 0 -Total Square Cm 0 -Epithelialization Large 67-100% #3- SCROTAL -Combined with other wound No -Current Size (cm) - Length 0.1 -Current Size (cm) - Width 0.1 -Current Size (cm) - Depth 0.1 -Total Square Cm 0.01 -Tunneling No -Undermining/Tunneling No -Circular Undermining No -Exudate Amt Small -Exudate Type Serosanguineous -Wound Margin Distinct, Outline Attached -Granulation Amt Large (67-100%) -Granulation Quality [place] -Slough/Fibrin Yes -Necrosis Amt Medium (34-66%) -Necrotic Tissue Type Adherent Slough -Structure Exposed N/A -Texture (Meliza-wound Skin Appearance) Assessed -Moisture (Meliza-wound Skin Appearance) Assessed -Color (Meliza-wound Skin Appearance) Assessed -Temperature (Meliza-wound Skin No Abnormality Appearance) (Pt Warm) -Tenderness on Palpation (Meliza-wound No Skin Appearance) -Ulcer Cleansing Wound Cleanser -Foul Odor after Cleansing No #1 sacrum -Combined with other wound No No -Current Size (cm) - Length 11 12 -Current Size (cm) - Width 7.5 6.7 -Current Size (cm) - Depth 3.5 5.7 -Total Square Cm 82.5 80.4 -Photo Taken Yes -Tunneling No No -Undermining/Tunneling No Yes -Undermining/Tunneling Starts (O'clock 3 ) -Undermining/Tunneling Ends (O'clock) 3 -Maximum Distance (cm) 7 -Circular Undermining No No -Exudate Amt Large Large -Exudate Type Serosanguineous Serosanguineous -Wound Margin Thickened & Thickened & Rolled Under Rolled Under -Granulation Amt Medium (34-66%) Large (67-100%) -Granulation Quality [place] -Slough/Fibrin Yes Yes -Necrosis Amt Medium (34-66%) Medium (34-66%) -Necrotic Tissue Type Adherent Slough Adherent Slough -Structure Exposed N/A N/A -Texture (Meliza-wound Skin Appearance) Assessed Scarring -Moisture (Meliza-wound Skin Appearance) Assessed Assessed -Color (Meliza-wound Skin Appearance) Assessed Assessed -Temperature (Meliza-wound Skin No Abnormality No Abnormality Appearance) (Pt Warm) (Pt Warm) -Tenderness on Palpation (Meliza-wound No No Skin Appearance) -Ulcer Cleansing Wound Cleanser Wound Cleanser -Foul Odor after Cleansing No No -Anesthetic Used 5% Lidocaine 4% Lidocaine Gel Solution WC - Nurse 2 - General Ulcer CM Notes Start: 08/19/23 13:52 Freq: Status: Active Protocol: Activity Type Activity Date Activity User E-sign Co-sign Detail Recorded Client Recorded Date Recorded By Document 08/19/23 14:34 Laptop 08/19/23 14:47 Document 09/02/23 13:36 Laptop 09/02/23 13:39 08/19/23 09/02/23 14:34 13:36 Wound Center Nurse 2 4-lower back -Time 14:45 -Correct Patient Yes No -Correct Side, Site, Position Yes No -Correct Procedure Yes No -Procedure Performed Yes No -Type of Procedure Debridement -Clinical Debridement Subcutaneous -Tissue Removed Subcutaneous -Post Debridement (cm) - Length 4.5 0 -Post Debridement (cm) - Width 4.5 0 -Post Debridement (cm) - Depth 0.1 0 -Total Square (Post) (cm) 20.25 0 -Area of Debridement (cm) - Length 4.5 0 -Area of Debridement (cm) - Width 4.5 0 -Total Square (Area) (cm) 20.25 0 -Tunneling No -Undermining/Tunneling No -Circular Undermining No -Wound/Ulcer Outcome Not Healed Healed- Epithelialized -Ulcer Cleansing Rinsed/ Irrigated with Saline -Foul Odor after Cleansing No -Bioengineered Tissue No -Bleeding Controlled with Pressure -Treatment Response Procedure Tolerated Well -Offloading No -Debridement - Subq, 1st 20sq cm Yes -Debridement, SubQ, ea addt'l 20sq cm 1 or part thereof #3- SCROTAL -Correct Patient No -Correct Side, Site, Position No -Correct Procedure No -Procedure Performed No -Post Debridement (cm) - Length 0 -Post Debridement (cm) - Width 0 -Post Debridement (cm) - Depth 0 -Total Square (Post) (cm) 0 -Area of Debridement (cm) - Length 0 -Area of Debridement (cm) - Width 0 -Total Square (Area) (cm) 0 -Wound/Ulcer Outcome Healed- Epithelialized #1 sacrum -Time 14:35 13:36 -Correct Patient Yes Yes -Correct Side, Site, Position Yes Yes -Correct Procedure Yes Yes -Procedure Performed Yes Yes -Type of Procedure Debridement Debridement -Clinical Debridement Muscle / Fascia Muscle / Fascia -Tissue Removed Muscle,Fascia Muscle,Fascia -Post Debridement (cm) - Length 14 11 -Post Debridement (cm) - Width 10 8 -Post Debridement (cm) - Depth 2.8 3.1 -Total Square (Post) (cm) 140 88 -Area of Debridement (cm) - Length 14 11 -Area of Debridement (cm) - Width 10 8 -Total Square (Area) (cm) 140 88 -Tunneling No Yes -Tunneling Position (O'clock) 3 -Tunneling Distance (cm) 5.5 -Undermining/Tunneling Yes No -Undermining/Tunneling Starts (O'clock 3 ) -Maximum Distance (cm) 6.2 -Circular Undermining No No -Wound/Ulcer Outcome Not Healed Not Healed -Ulcer Cleansing Rinsed/ Rinsed/ Irrigated with Irrigated with Saline Saline -Foul Odor after Cleansing No No -Bioengineered Tissue No No -Bleeding Controlled with Pressure,Silver Pressure Nitrate -Treatment Response Procedure Procedure Tolerated Well Tolerated Well -Offloading No No -Pressure Reduction Wheelchair Wheelchair cushion cushion -Debridement - Muscle / Fascia, 1st Yes Yes 20sq cm -Debridement, Muscle/Fascia, ea addt'l 6 8 20sq cm or part thereof Pain Scale: 0-10 Numeric Is Patient Pain Free? Yes Yes - Nurse 3 - General Ulcer D/C NN Start: 08/19/23 13:52 Freq: Status: Active Protocol: Activity Type Activity Date Activity User E-sign Co-sign Detail Recorded Client Recorded Date Recorded By Document 08/19/23 15:45 RB Desktop 08/19/23 15:46 RB Document 09/02/23 13:43 KW Desktop 09/02/23 13:43 08/19/23 09/02/23 15:45 13:43 Wound Care Center Nurse 3 4-lower back -Ulcer Cleansing Rinsed/ Irrigated with Saline -Other Dressing hydrogel -Primary Dressing Covered/Secured with Dry Gauze, Secured with Tape #1 sacrum -Ulcer Cleansing Rinsed/ Irrigated with Saline -Primary Dressing Applied Hysept ($) -Other Dressing dakins mostened gauze -Primary Dressing Covered/Secured with Dry Gauze, Dry Gauze, Secured with Secured with Tape Tape Pain Scale: 0-10 Numeric Is Patient Pain Free? Yes Yes - Visit Discharge Discharge Condition Stable Stable Ambulatory Status Wheelchair Wheelchair Transportation Private Auto Private Auto Medication Reconcilliation completed & No No provided to patient/care provider Clinical Summary of Care Provided Yes Yes Assessment/Plan Assessment/Plan (1) Stage IV pressure ulcer of sacral region: CODE(S): L89.154 - Pressure ulcer of sacral region, stage 4 (2) Spina bifida: CODE(S): Q05.9 - Spina bifida, unspecified QUALIFIERS: Presence of hydrocephalus: with hydrocephalus Spinal region: lumbosacral Qualified Code(s): Q05.2 - Lumbar spina bifida with hydrocephalus (3) Wheelchair dependence: CODE(S): Z99.3 - Dependence on wheelchair (4) Hydrocephalus: CODE(S): G91.9 - Hydrocephalus, unspecified QUALIFIERS: Hydrocephalus type: unspecified Qualified Code(s): G91.9 - Hydrocephalus, unspecified (5) Excoriation of back: CODE(S): S20.419A - Abrasion of unspecified back wall of thorax, initial encounter (6) Abrasion of lower back: CODE(S): S30.810A - Abrasion of lower back and pelvis, initial encounter (7) Yeast infection of the skin: CODE(S): B37.2 - Candidiasis of skin and nail PLAN: Plan Wound care - Dakins moistened gauze dressing changes daily after washing with soap and water to sacral ulcer. Lower back excoriation has healed. It has a red rash that clinically appears to be yeast. Will send in nystatin cream to use twice daily. Had a wound culture on 05/27/23. It showed MDR Acinetobacter baumannii, Enterococcus faecalis, and Methicillin resistant Staphylococcus haemolyticus. He is on IV antibiotics from Infectious Diseases for antibiotic management. Patient completed Meropenem. Referred him to plastics at [facility] for evaluation for closure of flap. He has not been seen by them yet. Did express to patient and his mother that he really needs to be off loading and staying off this ulcer. Stressed importance of a low air loss mattress. The foam mattress he is on is not helping relieve pressure from his ulcer. We have had this discussion in the past but his mother does not want the bed because it would not fit in his room and it would have to be in their living room. Followup [address] Arechiga's previous note: He has a new Roho cushion for his wheelchair. He has a memory foam mattress at home. He states a hospital low air loss bed won't fit into their trailer. His mother states that he never has any red areas or pressure areas when he is in bed. A memory foam mattress is not adequate for a Stage IV pressure sore. When the wound is closed with muscle flaps, a hospital low air loss bed is paramount. Otherwise the memory foam mattress will place extra pressure on the surgical incision, and there is a very high likelihood that the flap would fail. The patient and family are anxious for wound closure. Stressed the importance of control of infection, maximize the nutrition, and have proper low air loss bed before considering wound closure. I anticipate wound closure in 6 months, tentative. Initially will need another excision along with partial ostectomy to evaluate for osteomyelitis. The gluteus apollo V-Y myocutaneous flaps appear to be maximally advanced. Not sure how much advancement I will get for closure even by mobilizing and advancing both gluteus apollo myocutaneous flaps. Vastus lateralis muscular flaps can be used as well. However its blood supply is in the proximal thigh. He has bilateral incisions from previous hip surgery. Don't know preop whether these muscle flaps will be able to be used because of previous surgical dissection that may have compromised the proximal blood supply to the vastus lateralis muscle. So when the muscle is elevated from distal to proximal, there is a chance the muscle won't survive because of compromised proximal blood supply. Ultimately the last resort would be a total thigh flap to provide enough soft tissue to close the pressure sore. The flap necessitates an amputation. The mother stated that they are not in favor of an amputation. The patient may benefit from being evaluated at a tertiary center for possible wound closure with microvascular free tissue transfer if the above mentioned muscles end up being inadequate for complete wound closure. At the time of the excision of the pressure sore in preparation for wound closure with muscle flaps, will check a Prealbumin and send soft tissue and bone to Pathology as well as to Microbiology. A positive culture will necessitate antibiotic therapy. Usually can then proceed with the muscle flap closure in about 2 weeks after the excision. However if Pseudomonas is present or MRSA is present, then would need to treat for 6 weeks before thinking about wound closure.
== END 2023-09-14 23:59 | disposition home or self-care (01) ==
LOC: WC 13:15
PROVIDERS: PCP Internal Medicine; Visit Provider Nurse Practitioner Family
DX: L89.154 Pressure ulcer of sacral region, stage 4 (principal); Q05.2 Lumbar spina bifida with hydrocephalus; G91.9 Hydrocephalus, unspecified; R21 Rash and other nonspecific skin eruption; Z99.3 Dependence on wheelchair; S20.419A Abrasion of unspecified back wall of thorax, initial encounter; S30.810A Abrasion of lower back and pelvis, initial encounter; B37.2 Candidiasis of skin and nail
CPT/HCPCS: 11042; 11043; 11045; 11046

== ENCOUNTER 2023-09-23 06:13 | Day surgery (SDC) | payer MEDICARE, MEDICAID, SELFPAY ==
[2023-09-23] VITALS (7 sets, daily range): BP systolic 93–104; BP diastolic 50–76; PULSE 83–98; RESP 16–18; TEMP 36.4–37; O2SAT 100; BMI 23.5
[2023-09-23] MEDS: Lactated Ringers 1,000 ML 15 ML IV (06:48)
--- NOTE | 2023-09-23 08:14 | DCINST_ITS ---
Discharge Instructions Diet Discharge Diet: No restrictions Activity Discharge Activity: Return to Normal Activity Dressing / Incision Call your doctor if your incision/area has: Foul Smelling Discharge Follow Up Care Please Follow Up With: Isaiah Yang MD When: 3 weeks Test Results: Test results from this visit will be discussed in further detail at your follow- up appointment, if applicable. Discharge Plan Admission Attending Provider: Isaiah Yang Primary Care Provider: Lucia Parmar Discharge Orders/Prescriptions Prescriptions: No Action levetiracetam [Keppra] 500 mg tablet 500 mg PO BID Qty: 60 0RF ferrous sulfate [FeroSul] 325 mg (65 mg iron) Tablet 325 mg PO DAILY@1200 90 Days Qty: 90 0RF levetiracetam [Keppra XR] 500 mg tablet extended release 24 hr 500 mg PO BID nystatin 100,000 unit/gram cream 1 applic topical BID 14 Days Qty: 30 2RF potassium chloride 20 mEq tablet,ER particles/crystals 40 meq PO ONCE Qty: 2 0RF (DME) Bard Coude Tip Catheter 14 Fr misc See Rx Instructions .Route Qty: 120 5RF Rx Instructions: As directed Referrals / Follow Up: Lucia Parmar MD [Primary Care Provider] - Disposition Disposition (needs filled in before D/C Order can be placed): Home, Self Care
--- NOTE | 2023-09-23 08:15 | PCM.OPRPT ---
Problems Associated Problem List Diagnoses (1) Foreign body in ear, bilateral: Report of Operation Date of Procedure: 09/23/23 Pre-Operative Diagnosis: foreign body, right and left ear Post-Operative Diagnosis: foreign body, right and left ear Surgeon: Isaiah Yang Type of Anesthesia: General Description of Procedure: on the day of the procedure, after appropriate informed consent was obtained, the patient was brought to the operating room and placed in supine position on the operating table. he was placed under general mask anesthesia by the anesthesiologist. the right ear was examined with the binocular operating microscope. the compacted q-tip end was removed with an alligator. there was a middle ear effusion with retraction. the left ear was examined and again, a compacted qtip was removed. the TM was viewed in its entirety and found to be intact; the middle ear was normal. he was awoken from anesthesia and transferred to the PACU in stable condition.
[2023-09-23] MEDS: Ciprofloxacin 0.3% 2.5ml Bottle 1 DRP (08:22)
== END 2023-09-23 09:14 | disposition home or self-care (01) ==
LOC: SDC 06:15 → AC 06:26
PROVIDERS: PCP Internal Medicine; Referring Provider Otolaryngology; Visit Provider Otolaryngology
PROC: (CPT 69205; principal; 2023-09-23 07:55)
DX: T16.1XXA Foreign body in right ear, initial encounter (principal); Z93.3 Colostomy status; Z93.6 Other artificial openings of urinary tract status; T16.2XXA Foreign body in left ear, initial encounter; Z16.29 Resistance to other single specified antibiotic; Z87.728 Personal history of other specified (corrected) congenital malformations of nervous system and sense organs; E61.1 Iron deficiency; Z99.3 Dependence on wheelchair; Z96.643 Presence of artificial hip joint, bilateral
CPT/HCPCS: 69205; 00124; J7120; J2405

== ENCOUNTER 2023-10-29 14:04 | Outpatient (RCR) | payer MEDICARE, MEDICAID, SELFPAY ==
[2023-09-15 00:38] VITALS: BP 109/48; PULSE 104; RESP 18; TEMP 36.2; BMI 23.7
[2023-10-29 14:27] VITALS: BP 102/61; PULSE 97; RESP 18; TEMP 36.9; BMI 23.7
--- NOTE | 2023-10-29 16:18 | PCM.WC.PN ---
History of Present Illness Date of Service: 10/29/23 Chief Complaint: Recurrent left sacral pressure sore, Stage IV. History of Wound: 27 year old man with a history of Spina bifida presented to the Wound Center with a recurrent left sacral pressure sore that started a couple of months ago according to the patient. He bumped his buttocks sometime during the summer and did not tell his mother until it was infected and draining. He initially went to [facility] in April,, and was hospitalized 3 days for IV antibiotics with Meropenem and Clindamycin. Also received a dose of Vancomycin in the ED and had a skin rash. CT showed a rim-enhancing perirectal fluid collection measuring 3.9 x 6.2 cm, compatible with an abscess. He was transferred to [facility] where an I&D was performed. He has a history of Spina bifida which he has had bilateral hip surgery for hip dysplasia at age 8 and another surgery on legs bilaterally to help him wear braces to stand, which he never has been able to do. He had a sacral muscle flap at age 14 at [facility] for an ulcer. Also has a history of hydrocephalous with a shunt. Surgery 07/16/22 - Excision recurrent left sacral pressure sore, Stage IV, with partial ostectomy for osteomyelitis. Wound Care - [facility]. Operative tissue and bone cultures from 07/16/22 were positive for Enterobacter cloacae complex. He was treated with Levaquin. Pathology from 07/16/22 showed chronic reparative and reactive change. No evidence of acute osteomyelitis. Recent wound culture from 05/27/23 showed MDR Acinetobacter baumannii, Enterococcus faecalis, and Methicillin resistant Staphylococcus haemolyticus. Infectious Diseases has been consulted to assist with antibiotic management (PO vs IV). Prealbumin from 07/17/22 was 14.6. Encourage nutritional supplementation with protein to help the healing process. CT Abdomen/Pelvis from 01/29/23 - There is sclerosis of the underlying sacrum suggestive of possible chronic osteomyelitis. There is superior migration of the proximal left femur. There is deformity of the proximal left femur with the old fracture of the left femoral head. Today denies fever. His appetite is ok. Progress of Wound: Sacral ulcer is stable. Ulcer bed is beefy pink. He has one area that is bruised, most likely from too much time in his wheel chair. He was seen at [facility] wound center a couple weeks ago. They changed his dressing to Sorbalgon-Ag (calium alginate with silver dressing). He did not see a plastic surgeon. His mother said that she was told you will a plastic surgeon when we think he's ready to see a surgeon. They have an appointment there again next week. He is waiting on a new wheel chair, orders have been signed. Objective Data Objective Data Vital Signs: Vital Signs Temp Pulse Resp BP 98.4 F 97 18 102/61 10/29/23 14:27 10/29/23 14:27 10/29/23 14:27 10/29/23 14:27 Weight: 175 lb Body Mass Index (BMI) 23.7 Charges/Coding Procedures Integumentary [id number]: [id number] Camelia musc/fascia 20 sq cm/< ( sacral ulcer ICD-10 - L89.154, Q05.9, Z99.3, G91.9) Add On Codes: 53961 Camelia musc/fascia add-on (x4 Units) (ICD-10 - L89.154, Q05.9, Z99.3, G91.9) Debridement Note Debridement Note Wound debrided: #1 Sacral area. Laterality: Not Applicable Wound Grade/Stage: IV. Type of Debridement: Excisional debridement Anesthesia Used: 4% Lidocaine Solution Depth: Down to and including healthy tissue, in the subcutaneous layer, to muscle and to bone (bone is palpable but not exposed and not debrided.) Percentage of wound debrided: 100 Instrument Used: 7mm curette Tissue Removed: subcutaneous tissue and muscle. Severity: Fat Layer Exposed (muscle is exposed. bone is palpable but not exposed and not debrided.) Amount of bleeding with debridement: Mild Bleeding Controlled with: Pressure, Compression and gauze and Silver Nitrate (Silver Nitrate used at 2 o'clock area.) Patient tolerated procedure: Patient tolerated procedure well Debridement Free Text: Ulcer into the muscle with bone palpable but covered with granulation tissue. Post-Debridement Measurements and Additional Note: Post-Debridement Measurements/Treatment WC - Nurse 1 - General Ulcer Assessment Start: 10/29/23 14:27 Freq: Status: Active Protocol: ANDREW Activity Type Activity Date Activity User E-sign Co-sign Detail Recorded Client Recorded Date Recorded By Document 10/29/23 14:27 RB wound center 10/29/23 14:34 10/29/23 14:27 - Today's Visit Information Type of service Follow-up Visit (Physician/[employer] ) Arrival Mode Wheelchair Transfer Assistance Manual Patient Identification Verified (Name & Yes ) Patient Requires Transmission-Based No Precautions Height and Weight Body Mass Index (BMI) 23.7 BMI Classification Normal Vital Signs Temperature (97.8 F-99.1 F) 98.4 F Temperature Source Temporal Pulse Rate (60-100) 97 Pulse Location Monitor Respiratory Rate (12-18) 18 Respiratory rate source Observation Blood Pressure (90/60-120/80) 102/61 Blood Pressure Mean (mm Hg) 74 Source Monitor Position Semi-Fowlers Blood Pressure Location Left Arm History Since Last Visit- (Skip if this is Patient's initial visit) Have you changed medications since your No last visit? Any new allergies or adverse reactions No Had a fall/change in ADL's that may No increase risk of falls Signs or symptoms of abuse and/or No neglect since last visit Have you been in the hospital since your No last visit? Has dressing in place as prescribed Yes Has compression in place as prescribed No Has offloadiing in place as prescribed Yes Experienced any changes in pain level or No management Pain Scale: 0-10 Numeric Is Patient Pain Free? Yes - Nurse 1 - General Ulcer Measurement Start: 10/29/23 14:27 Freq: Status: Active Protocol: Activity Type Activity Date Activity User E-sign Co-sign Detail Recorded Client Recorded Date Recorded By Document 10/29/23 14:27 wound center 10/29/23 14:34 10/29/23 14:27 Wound Center Nurse 1 #1 sacrum -Combined with other wound No -Current Size (cm) - Length 11.1 -Current Size (cm) - Width 5 -Current Size (cm) - Depth 2.4 -Total Square Cm 55.5 -Photo Taken Yes -Tunneling No -Undermining/Tunneling Yes -Undermining/Tunneling Starts (O'clock 12 ) -Undermining/Tunneling Ends (O'clock) 5 -Maximum Distance (cm) 4.5 -Circular Undermining No -Exudate Amt Large -Exudate Type Serosanguineous -Wound Margin Thickened & Rolled Under -Granulation Amt Large (67-100%) -Granulation Quality Big Pool,Red -Slough/Fibrin Yes -Necrosis Amt Medium (34-66%) -Necrotic Tissue Type Adherent Slough -Structure Exposed N/A -Texture (Meliza-wound Skin Appearance) Assessed, Scarring -Moisture (Meliza-wound Skin Appearance) Assessed -Color (Meliza-wound Skin Appearance) Assessed -Temperature (Meliza-wound Skin No Abnormality Appearance) (Pt Warm) -Tenderness on Palpation (Meliza-wound No Skin Appearance) -Ulcer Cleansing Wound Cleanser -Foul Odor after Cleansing No -Anesthetic Used 4% Lidocaine Solution -Wound Comment(s) shanice jesus helped measurement of wound WC - Nurse 2 - General Ulcer CM Notes Start: 10/29/23 14:27 Freq: Status: Active Protocol: Activity Type Activity Date Activity User E-sign Co-sign Detail Recorded Client Recorded Date Recorded By Document 10/29/23 14:56 [id number] 10/29/23 15:01 10/29/23 14:56 Wound Center Nurse 2 -Time 14:56 -Correct Patient Yes -Correct Side, Site, Position Yes -Correct Procedure Yes -Procedure Performed Yes -Type of Procedure Debridement -Clinical Debridement Muscle / Fascia -Tissue Removed Muscle -Post Debridement (cm) - Length 10.8 -Post Debridement (cm) - Width 8.0 -Post Debridement (cm) - Depth 3.2 -Total Square (Post) (cm) 86.40 -Area of Debridement (cm) - Length 10.8 -Area of Debridement (cm) - Width 8.0 -Total Square (Area) (cm) 86.40 -Tunneling Yes -Tunneling Position (O'clock) 3 -Tunneling Distance (cm) 4.5 -Wound/Ulcer Outcome Not Healed -Ulcer Cleansing Rinsed/ Irrigated with Saline -Foul Odor after Cleansing No -Bleeding Controlled with Pressure -Treatment Response Procedure Tolerated Well -Debridement - Muscle / Fascia, 1st Yes 20sq cm -Debridement, Muscle/Fascia, ea addt'l 4 20sq cm or part thereof Pain Scale: 0-10 Numeric Is Patient Pain Free? Yes WC - Nurse 3 - General Ulcer D/C NN Start: 10/29/23 14:27 Freq: Status: Active Protocol: Activity Type Activity Date Activity User E-sign Co-sign Detail Recorded Client Recorded Date Recorded By Document 10/29/23 15:13 RB wound center 10/29/23 15:14 RB 10/29/23 15:13 Wound Care Center Nurse 3 #1 sacrum -Ulcer Cleansing Rinsed/ Irrigated with Saline -Other Dressing sorbalogon AG -Primary Dressing Covered/Secured with Dry Gauze, Secured with Tape -Other Covering ABD Treatment Response Procedure Tolerated Well Pain Scale: 0-10 Numeric Is Patient Pain Free? Yes Teaching: Wound Center Dressing Your Wound -Person Taught Patient -Teaching Method Discussion, Demonstration -Response to teaching Verbalize understanding WC - Visit Discharge Discharge Condition Stable Ambulatory Status Wheelchair Transportation Private Auto Medication Reconcilliation completed & No provided to patient/care provider Clinical Summary of Care Provided Yes Assessment/Plan Assessment/Plan (1) Stage IV pressure ulcer of sacral region: CODE(S): L89.154 - Pressure ulcer of sacral region, stage 4 (2) Spina bifida: CODE(S): Q05.9 - Spina bifida, unspecified QUALIFIERS: Spinal region: lumbosacral Presence of hydrocephalus: with hydrocephalus Qualified Code(s): Q05.2 - Lumbar spina bifida with hydrocephalus (3) Wheelchair dependence: CODE(S): Z99.3 - Dependence on wheelchair (4) Hydrocephalus: CODE(S): G91.9 - Hydrocephalus, unspecified QUALIFIERS: Hydrocephalus type: unspecified Qualified Code(s): G91.9 - Hydrocephalus, unspecified (5) Excoriation of back: CODE(S): S20.419A - Abrasion of unspecified back wall of thorax, initial encounter (6) Abrasion of lower back: CODE(S): S30.810A - Abrasion of lower back and pelvis, initial encounter (7) Yeast infection of the skin: CODE(S): B37.2 - Candidiasis of skin and nail PLAN: Plan Wound care - Calcium alginate with silver (Sorbalgon-Ag) covered with fluffed gauze and topped with ABD daily after washing with soap and water. Had a wound culture on 05/27/23. It showed MDR Acinetobacter baumannii, Enterococcus faecalis, and Methicillin resistant Staphylococcus haemolyticus. He is on IV antibiotics from Infectious Diseases for antibiotic management. Patient completed Meropenem. Referred him to plastics at [facility] for evaluation for closure of flap. He has another appointment at their wound center scheduled in the next 2 weeks. Instructed him mom that he may need to be seen at [facility] wound clinic several times before seeing a plastic surgeon. Instructed her to keep us notified if she has any issues or concerns. Did express to patient and his mother that he really needs to be off loading and staying off this ulcer. Stressed importance of a low air loss mattress. Followup as needed. From Dr. Arechiga's previous note: He has a new Roho cushion for his wheelchair. He has a memory foam mattress at home. He states a hospital low air loss bed won't fit into their trailer. His mother states that he never has any red areas or pressure areas when he is in bed. A memory foam mattress is not adequate for a Stage IV pressure sore. When the wound is closed with muscle flaps, a hospital low air loss bed is paramount. Otherwise the memory foam mattress will place extra pressure on the surgical incision, and there is a very high likelihood that the flap would fail. The patient and family are anxious for wound closure. Stressed the importance of control of infection, maximize the nutrition, and have proper low air loss bed before considering wound closure. I anticipate wound closure in 6 months, tentative. Initially will need another excision along with partial ostectomy to evaluate for osteomyelitis. The gluteus apollo V-Y myocutaneous flaps appear to be maximally advanced. Not sure how much advancement I will get for closure even by mobilizing and advancing both gluteus apollo myocutaneous flaps. Vastus lateralis muscular flaps can be used as well. However its blood supply is in the proximal thigh. He has bilateral incisions from previous hip surgery. Don't know preop whether these muscle flaps will be able to be used because of previous surgical dissection that may have compromised the proximal blood supply to the vastus lateralis muscle. So when the muscle is elevated from distal to proximal, there is a chance the muscle won't survive because of compromised proximal blood supply. Ultimately the last resort would be a total thigh flap to provide enough soft tissue to close the pressure sore. The flap necessitates an amputation. The mother stated that they are not in favor of an amputation. The patient may benefit from being evaluated at a tertiary center for possible wound closure with microvascular free tissue transfer if the above mentioned muscles end up being inadequate for complete wound closure. At the time of the excision of the pressure sore in preparation for wound closure with muscle flaps, will check a Prealbumin and send soft tissue and bone to Pathology as well as to Microbiology. A positive culture will necessitate antibiotic therapy. Usually can then proceed with the muscle flap closure in about 2 weeks after the excision. However if Pseudomonas is present or MRSA is present, then would need to treat for 6 weeks before thinking about wound closure.
== END 2023-11-14 23:59 | disposition home or self-care (01) ==
LOC: WC 14:04
PROVIDERS: PCP Internal Medicine; Visit Provider Nurse Practitioner Family
DX: L89.154 Pressure ulcer of sacral region, stage 4 (principal); Q05.2 Lumbar spina bifida with hydrocephalus; Z99.3 Dependence on wheelchair; S20.419A Abrasion of unspecified back wall of thorax, initial encounter; S30.810A Abrasion of lower back and pelvis, initial encounter; B37.2 Candidiasis of skin and nail
CPT/HCPCS: 11043; 11046

== ENCOUNTER 2023-12-08 14:20 | Outpatient (RCR) | payer MEDICARE, MEDICAID, SELFPAY ==
[2023-11-15 01:29] VITALS: BP 109/48; PULSE 104; RESP 18; TEMP 36.2; BMI 23.7
[2023-12-08 14:33] VITALS: BP 111/48; PULSE 82; RESP 16; TEMP 36.6; BMI 23.7
--- NOTE | 2023-12-08 15:13 | PCM.WC.PN ---
History of Present Illness Date of Service: 12/08/23 Chief Complaint: Recurrent left sacral pressure sore, Stage IV. History of Wound: 28 year old man with a history of Spina bifida presented to the Wound Center with a recurrent left sacral pressure sore that started a couple of months ago according to the patient. He bumped his buttocks sometime during the summer and did not tell his mother until it was infected and draining. He initially went to [facility] in April,, and was hospitalized 3 days for IV antibiotics with Meropenem and Clindamycin. Also received a dose of Vancomycin in the ED and had a skin rash. CT showed a rim-enhancing perirectal fluid collection measuring 3.9 x 6.2 cm, compatible with an abscess. He was transferred to [facility] where an I&D was performed. He has a history of Spina bifida which he has had bilateral hip surgery for hip dysplasia at age 8 and another surgery on legs bilaterally to help him wear braces to stand, which he never has been able to do. He had a sacral muscle flap at age 14 at [facility] for an ulcer. Also has a history of hydrocephalous with a shunt. Surgery 07/16/22 - Excision recurrent left sacral pressure sore, Stage IV, with partial ostectomy for osteomyelitis. Wound Care - [facility]. Operative tissue and bone cultures from 07/16/22 were positive for Enterobacter cloacae complex. He was treated with Levaquin. Pathology from 07/16/22 showed chronic reparative and reactive change. No evidence of acute osteomyelitis. Wound culture from 05/27/23 showed MDR Acinetobacter baumannii, Enterococcus faecalis, and Methicillin resistant Staphylococcus haemolyticus. Infectious Diseases has been consulted to assist with antibiotic management (PO vs IV). Prealbumin from 07/17/22 was 14.6. Encourage nutritional supplementation with protein to help the healing process. CT Abdomen/Pelvis from 01/29/23 - There is sclerosis of the underlying sacrum suggestive of possible chronic osteomyelitis. There is superior migration of the proximal left femur. There is deformity of the proximal left femur with the old fracture of the left femoral head. Today denies fever. His appetite is ok. Progress of Wound: Sacral ulcer is stable. Ulcer bed is beefy pink. No odor or clinical signs of infection. His meliza wound is clear. He was seen at [facility] wound center a couple times. He was referred to [facility] for evaluation for a flap by plastics but he needed to go through the wound center and his mother said that she was told you will a plastic surgeon when we think he's ready to see a surgeon. She states that the last time he was there they ordered a wound VAC, but he never received it. His mother states that she does not want to go back to [place] because it is too far for her drive and they are not doing anything for him that the [facility] center cannot do. I did mention that he still needs evaluated by a plastic surgeon for a flap and she said they would wait until the plastic surgeon come in January. Objective Data Objective Data Vital Signs: Vital Signs Temp Pulse Resp BP O2 Del Method 97.9 F 82 16 111/48 L Room Air 12/08/23 14:33 12/08/23 14:33 12/08/23 14:33 12/08/23 14:33 12/08/23 14:33 Oxygen Delivery Method Room Air Weight: 175 lb Body Mass Index (BMI) 23.7 Charges/Coding Procedures Integumentary 111xxx-113xx: [id number] Camelia musc/fascia 20 sq cm/< Add On Codes: 61881 Camelia musc/fascia add-on (x2) Debridement Note Debridement Note Wound debrided: #1 Sacral area. Laterality: Not Applicable Wound Grade/Stage: IV. Type of Debridement: Excisional debridement Anesthesia Used: 4% Lidocaine Solution Depth: Down to and including healthy tissue, in the subcutaneous layer, to muscle and to bone (bone is palpable but not exposed and not debrided.) Percentage of wound debrided: 100 Instrument Used: 7mm curette Tissue Removed: subcutaneous tissue and muscle. Severity: Fat Layer Exposed (muscle is exposed. bone is palpable but not exposed and not debrided.) Amount of bleeding with debridement: Mild Bleeding Controlled with: Pressure and Compression and gauze Patient tolerated procedure: Patient tolerated procedure well Debridement Free Text: Ulcer into the muscle with bone palpable but covered with granulation tissue. Post-Debridement Measurements and Additional Note: Post-Debridement Measurements/Treatment LARISSA - Nurse 1 - General Ulcer Assessment Start: 12/08/23 14:31 Freq: Status: Active Protocol: ANDREW Activity Type Activity Date Activity User E-sign Co-sign Detail Recorded Client Recorded Date Recorded By Document 12/08/23 14:33 [facility] 12/08/23 14:45 [facility] 12/08/23 14:33 WC - Today's Visit Information Type of service Follow-up Visit (Physician/ASSEMBLY DEPARTMENT SUPERVISOR ) Arrival Mode Wheelchair Transfer Assistance Other Transfer Assist (Other) standby Accompanied by mom Patient Identification Verified (Name & Yes ) Patient Requires Transmission-Based No Precautions Height and Weight Body Mass Index (BMI) 23.7 BMI Classification Normal Vital Signs Temperature (97.8 F-99.1 F) 97.9 F Temperature Source Temporal Pulse Rate (60-100) 82 Pulse Location Monitor Respiratory Rate (12-18) 16 Respiratory rate source Observation Oxygen Delivery Method Room Air Blood Pressure (90/60-120/80) 111/48 L Blood Pressure Mean (mm Hg) 69 Source Monitor Position Sitting Blood Pressure Location Right Arm History Since Last Visit- (Skip if this is Patient's initial visit) Have you changed medications since your No last visit? Any new allergies or adverse reactions No Had a fall/change in ADL's that may No increase risk of falls Signs or symptoms of abuse and/or No neglect since last visit Have you been in the hospital since your No last visit? Has dressing in place as prescribed Yes Has compression in place as prescribed N/A Has offloadiing in place as prescribed N/A Experienced any changes in pain level or No management Left Footwear Regular Shoe Right Footwear Regular Shoe Pain Scale: 0-10 Numeric Is Patient Pain Free? Yes - Nurse 1 - General Ulcer Measurement Start: 12/08/23 14:31 Freq: Status: Active Protocol: Activity Type Activity Date Activity User E-sign Co-sign Detail Recorded Client Recorded Date Recorded By Document 12/08/23 14:33 [facility] 12/08/23 14:45 [facility] 12/08/23 14:33 Wound Center Nurse 1 #1 sacrum -Combined with other wound No -Current Size (cm) - Length 9 -Current Size (cm) - Width 3 -Current Size (cm) - Depth 5.6 -Total Square Cm 27 -Date of Last Picture (Recall this 12/08/23 field) -Photo Taken Yes -Tunneling No -Undermining/Tunneling Yes -Undermining/Tunneling Starts (O'clock 1 ) -Undermining/Tunneling Ends (O'clock) 4 -Maximum Distance (cm) 5.1 -Circular Undermining No -Exudate Amt Large -Exudate Type Serosanguineous -Wound Margin Thickened & Rolled Under -Granulation Amt Large (67-100%) -Granulation Quality Red -Slough/Fibrin Yes -Necrosis Amt Small (1-33%) -Necrotic Tissue Type Adherent Slough -Texture (Meliza-wound Skin Appearance) Assessed, Scarring -Moisture (Meliza-wound Skin Appearance) Assessed -Color (Meliza-wound Skin Appearance) Assessed -Temperature (Meliza-wound Skin No Abnormality Appearance) (Pt Warm) -Tenderness on Palpation (Meliza-wound No Skin Appearance) -Ulcer Cleansing Soap and Water -Foul Odor after Cleansing No -Anesthetic Used 4% Lidocaine Solution WC - Nurse 2 - General Ulcer CM Notes Start: 12/08/23 14:31 Freq: Status: Active Protocol: Activity Type Activity Date Activity User E-sign Co-sign Detail Recorded Client Recorded Date Recorded By Document 12/08/23 15:00 JF 0000 12/08/23 15:05 12/08/23 15:00 Wound Center Nurse 2 -Time 15:02 -Correct Patient Yes -Correct Side, Site, Position Yes -Correct Procedure Yes -Procedure Performed Yes -Type of Procedure Debridement -Clinical Debridement Muscle / Fascia -Tissue Removed Muscle,Fascia -Post Debridement (cm) - Length 10 -Post Debridement (cm) - Width 6 -Post Debridement (cm) - Depth 3.9 -Total Square (Post) (cm) 60 -Area of Debridement (cm) - Length 10 -Area of Debridement (cm) - Width 6 -Total Square (Area) (cm) 60 -Tunneling No -Undermining/Tunneling Yes -Undermining/Tunneling Starts (O'clock 3 ) -Maximum Distance (cm) 6.5 -Circular Undermining No -Wound/Ulcer Outcome Not Healed -Ulcer Cleansing Rinsed/ Irrigated with Saline -Foul Odor after Cleansing No -Bioengineered Tissue No -Bleeding Controlled with Pressure -Treatment Response Procedure Tolerated Well -Offloading No -Pressure Reduction Wheelchair cushion -Debridement - Muscle / Fascia, 1st Yes 20sq cm -Debridement, Muscle/Fascia, ea addt'l 2 20sq cm or part thereof Pain Scale: 0-10 Numeric Is Patient Pain Free? Yes - Nurse 3 - General Ulcer D/C NN Start: 12/08/23 14:31 Freq: Status: Active Protocol: Activity Type Activity Date Activity User E-sign Co-sign Detail Recorded Client Recorded Date Recorded By Document 12/08/23 15:12 [facility] 12/08/23 15:12 [facility] 12/08/23 15:12 Wound Care Center Nurse 3 #1 sacrum -Ulcer Cleansing Rinsed/ Irrigated with Saline -Foul Odor after Cleansing No -Primary Dressing Applied Silvercel -Other Dressing kerlix, ABD; DRSG PER DL IT RISK ANALYST -Primary Dressing Covered/Secured with Secured with Tape -Silvercel 2 Treatment Response Procedure Tolerated Well Pain Scale: 0-10 Numeric Is Patient Pain Free? Yes WC - Visit Discharge Discharge Condition Stable Ambulatory Status Wheelchair Transportation Private Auto Accompanied by MOM Assessment/Plan Assessment/Plan (1) Stage IV pressure ulcer of sacral region: CODE(S): L89.154 - Pressure ulcer of sacral region, stage 4 (2) Spina bifida: CODE(S): Q05.9 - Spina bifida, unspecified QUALIFIERS: Spinal region: lumbosacral Presence of hydrocephalus: with hydrocephalus Qualified Code(s): Q05.2 - Lumbar spina bifida with hydrocephalus (3) Wheelchair dependence: CODE(S): Z99.3 - Dependence on wheelchair (4) Hydrocephalus: CODE(S): G91.9 - Hydrocephalus, unspecified QUALIFIERS: Hydrocephalus type: unspecified Qualified Code(s): G91.9 - Hydrocephalus, unspecified PLAN: Plan Wound care - Silver alginate covered with fluffed gauze and topped with ABD daily after washing with soap and water. Will order a Wound VAC at 150 mmHg to be changed 3 times per week. This will start once it is approved and they receive the wound VAC. His mother is able to do his wound VAC dressing changes. The wound VAC will hopefully help decrease the depth and tunneled area. Had a wound culture on 05/27/23. It showed MDR Acinetobacter baumannii, Enterococcus faecalis, and Methicillin resistant Staphylococcus haemolyticus. He is on IV antibiotics from Infectious Diseases for antibiotic management. Patient completed Meropenem. Referred him to plastics at [facility] for evaluation for closure of flap. He never saw a plastic surgeon and his mother has decided to stay in [place] for the time being. Did express to patient and his mother that he really needs to be off loading and staying off this ulcer. Stressed importance of a low air loss mattress. Encouraged supplementation with protein to help with wound healing. Follow up [address] Arechiga's previous note: He has a new Roho cushion for his wheelchair. He has a memory foam mattress at home. He states a hospital low air loss bed won't fit into their trailer. His mother states that he never has any red areas or pressure areas when he is in bed. A memory foam mattress is not adequate for a Stage IV pressure sore. When the wound is closed with muscle flaps, a hospital low air loss bed is paramount. Otherwise the memory foam mattress will place extra pressure on the surgical incision, and there is a very high likelihood that the flap would fail. The patient and family are anxious for wound closure. Stressed the importance of control of infection, maximize the nutrition, and have proper low air loss bed before considering wound closure. I anticipate wound closure in 6 months, tentative. Initially will need another excision along with partial ostectomy to evaluate for osteomyelitis. The gluteus apollo V-Y myocutaneous flaps appear to be maximally advanced. Not sure how much advancement I will get for closure even by mobilizing and advancing both gluteus apollo myocutaneous flaps. Vastus lateralis muscular flaps can be used as well. However its blood supply is in the proximal thigh. He has bilateral incisions from previous hip surgery. Don't know preop whether these muscle flaps will be able to be used because of previous surgical dissection that may have compromised the proximal blood supply to the vastus lateralis muscle. So when the muscle is elevated from distal to proximal, there is a chance the muscle won't survive because of compromised proximal blood supply. Ultimately the last resort would be a total thigh flap to provide enough soft tissue to close the pressure sore. The flap necessitates an amputation. The mother stated that they are not in favor of an amputation. The patient may benefit from being evaluated at a tertiary center for possible wound closure with microvascular free tissue transfer if the above mentioned muscles end up being inadequate for complete wound closure. At the time of the excision of the pressure sore in preparation for wound closure with muscle flaps, will check a Prealbumin and send soft tissue and bone to Pathology as well as to Microbiology. A positive culture will necessitate antibiotic therapy. Usually can then proceed with the muscle flap closure in about 2 weeks after the excision. However if Pseudomonas is present or MRSA is present, then would need to treat for 6 weeks before thinking about wound closure.
--- NOTE | 2023-12-09 15:58 | WC ---
Contacted for call regarding concerns on pt wound vac order. Spoke with Josy in place of [facility] who originally called and was in a meeting. I confirmed with her that the wound vac orders was in fact signed by provider Oli Nunes. Josy stated she put in a note to send over to Sagr[facility] to proceed with vac order, and [facility] will be in contact with us if anymore info is needed.
--- NOTE | 2023-12-17 09:48 | WC ---
PHOTO SACRUM 12/08/23
== END 2023-12-14 23:59 | disposition home or self-care (01) ==
LOC: WC 14:20
PROVIDERS: PCP Internal Medicine; Visit Provider Nurse Practitioner Family
DX: L89.154 Pressure ulcer of sacral region, stage 4 (principal); Q05.2 Lumbar spina bifida with hydrocephalus; R21 Rash and other nonspecific skin eruption; Z99.3 Dependence on wheelchair
CPT/HCPCS: 11043; 11046

== ENCOUNTER 2024-01-05 13:30 | Outpatient (RCR) | payer MEDICARE, MEDICAID, SELFPAY ==
[2023-12-15 00:39] VITALS: BP 109/48; PULSE 104; RESP 18; TEMP 36.2; BMI 23.7
[2023-12-22 14:17] VITALS: BP 108/55; PULSE 89; RESP 16; TEMP 36.3; BMI 23.7
--- NOTE | 2023-12-22 16:26 | PCM.WC.PN ---
History of Present Illness Date of Service: 12/22/23 Chief Complaint: Recurrent left sacral pressure sore, Stage IV. History of Wound: 27 year old man with a history of Spina bifida presented to the Wound Center with a recurrent left sacral pressure sore that started a couple of months ago according to the patient. He bumped his buttocks sometime during the summer and did not tell his mother until it was infected and draining. He initially went to [facility] in April,, and was hospitalized 3 days for IV antibiotics with Meropenem and Clindamycin. Also received a dose of Vancomycin in the ED and had a skin rash. CT showed a rim-enhancing perirectal fluid collection measuring 3.9 x 6.2 cm, compatible with an abscess. He was transferred to [facility] where an I&D was performed. He has a history of Spina bifida which he has had bilateral hip surgery for hip dysplasia at age 8 and another surgery on legs bilaterally to help him wear braces to stand, which he never has been able to do. He had a sacral muscle flap at age 14 at [facility] for an ulcer. Also has a history of hydrocephalous with a shunt. Surgery 07/16/22 - Excision recurrent left sacral pressure sore, Stage IV, with partial ostectomy for osteomyelitis. Wound Care - [facility]. Operative tissue and bone cultures from 07/16/22 were positive for Enterobacter cloacae complex. He was treated with Levaquin. Pathology from 07/16/22 showed chronic reparative and reactive change. No evidence of acute osteomyelitis. Recent wound culture from 05/27/23 showed MDR Acinetobacter baumannii, Enterococcus faecalis, and Methicillin resistant Staphylococcus haemolyticus. Infectious Diseases has been consulted to assist with antibiotic management (PO vs IV). Prealbumin from 07/17/22 was 14.6. Encourage nutritional supplementation with protein to help the healing process. CT Abdomen/Pelvis from 01/29/23 - There is sclerosis of the underlying sacrum suggestive of possible chronic osteomyelitis. There is superior migration of the proximal left femur. There is deformity of the proximal left femur with the old fracture of the left femoral head. Today denies fever. His appetite is ok. Progress of Wound: Sacral ulcer is stable. Ulcer bed is beefy pink. No odor or clinical signs of infection. His meliza wound has a small amount of erythema on the left buttocks that has a pattern that resembles the wound VAC drape circles. Unsure if this where he has been having issues with wound VAC leaking. His mother has been changing his wound VAC dressing 3 times per week. She states that he has issues at night with perspiration and will sweat and then will have an air leak. She is typically able to get the air leak to stop. Objective Data Objective Data Vital Signs: Vital Signs Temp Pulse Resp BP O2 Del Method 97.3 F L 89 16 108/55 L Room Air 12/22/23 14:17 12/22/23 14:17 12/22/23 14:17 12/22/23 14:17 12/22/23 14:17 Oxygen Delivery Method Room Air Weight: 175 lb Body Mass Index (BMI) 23.7 Charges/Coding Procedures Integumentary 111xxx-113xx: [id number] Camelia musc/fascia 20 sq cm/< Add On Codes: 49315 Camelia musc/fascia add-on (x3) Debridement Note Debridement Note Wound debrided: #1 Sacral area. Laterality: Not Applicable Wound Grade/Stage: IV. Type of Debridement: Excisional debridement Anesthesia Used: 4% Lidocaine Solution Depth: Down to and including healthy tissue, in the subcutaneous layer, to muscle and to bone (bone is palpable but not exposed and not debrided.) Percentage of wound debrided: 100 Instrument Used: 7mm curette Tissue Removed: subcutaneous tissue and muscle. Severity: Fat Layer Exposed (muscle is exposed. bone is palpable but not exposed and not debrided.) Amount of bleeding with debridement: Mild Bleeding Controlled with: Pressure and Compression and gauze Patient tolerated procedure: Patient tolerated procedure well Debridement Free Text: Ulcer into the muscle with bone palpable but covered with granulation tissue. Post-Debridement Measurements and Additional Note: Post-Debridement Measurements/Treatment - Nurse 1 - General Ulcer Assessment Start: 12/22/23 14:17 Freq: Status: Active Protocol: ANDREW Activity Type Activity Date Activity User E-sign Co-sign Detail Recorded Client Recorded Date Recorded By Document 12/22/23 14:17 KW h 12/22/23 14:23 KW 12/22/23 14:17 - Today's Visit Information Type of service Follow-up Visit (Physician/LIMOUSINE DRIVER ) Arrival Mode Wheelchair Accompanied by mom Patient Identification Verified (Name & Yes ) Height and Weight Body Mass Index (BMI) 23.7 BMI Classification Normal Vital Signs Temperature (97.8 F-99.1 F) 97.3 F L Temperature Source Temporal Pulse Rate (60-100) 89 Pulse Location Monitor Respiratory Rate (12-18) 16 Respiratory rate source Observation Oxygen Delivery Method Room Air Blood Pressure (90/60-120/80) 108/55 L Blood Pressure Mean (mm Hg) 72 Source Monitor Position Sitting Blood Pressure Location Right Arm History Since Last Visit- (Skip if this is Patient's initial visit) Have you changed medications since your No last visit? Any new allergies or adverse reactions No Had a fall/change in ADL's that may No increase risk of falls Signs or symptoms of abuse and/or No neglect since last visit Have you been in the hospital since your No last visit? Has dressing in place as prescribed Yes Has compression in place as prescribed N/A Has offloadiing in place as prescribed N/A Experienced any changes in pain level or No management Left Footwear Regular Shoe Right Footwear Regular Shoe Pain Scale: 0-10 Numeric Is Patient Pain Free? Yes WC - Nurse 1 - General Ulcer Measurement Start: 12/22/23 14:17 Freq: Status: Active Protocol: Activity Type Activity Date Activity User E-sign Co-sign Detail Recorded Client Recorded Date Recorded By Document 12/22/23 14:17 KW h 12/22/23 14:23 KW 12/22/23 14:17 Wound Center Nurse 1 #1 sacrum -Current Size (cm) - Length 11.1 -Current Size (cm) - Width 3.6 -Current Size (cm) - Depth 3.6 -Total Square Cm 39.96 -Date of Last Picture (Recall this 12/22/23 field) -Undermining/Tunneling Yes -Undermining/Tunneling Starts (O'clock 9 ) -Undermining/Tunneling Ends (O'clock) 5 -Maximum Distance (cm) 5.5 -Exudate Amt Medium -Exudate Type Serosanguineous -Wound Margin Distinct, Outline Attached -Granulation Amt Large (67-100%) -Granulation Quality [place] -Texture (Meliza-wound Skin Appearance) Assessed -Moisture (Meliza-wound Skin Appearance) Assessed, Maceration -Color (Meliza-wound Skin Appearance) Assessed -Temperature (Meliza-wound Skin No Abnormality Appearance) (Pt Warm) -Tenderness on Palpation (Meliza-wound No Skin Appearance) -Ulcer Cleansing Soap and Water -Foul Odor after Cleansing No -Anesthetic Used 4% Lidocaine Solution LARISSA - Nurse 2 - General Ulcer CM Notes Start: 12/22/23 14:17 Freq: Status: Active Protocol: Activity Type Activity Date Activity User E-sign Co-sign Detail Recorded Client Recorded Date Recorded By Document 12/22/23 14:34 12/22/23 14:40 12/22/23 14:34 Wound Center Nurse 2 -Correct Patient Yes -Correct Side, Site, Position Yes -Correct Procedure Yes -Procedure Performed Yes -Type of Procedure Debridement -Clinical Debridement Muscle / Fascia -Tissue Removed Muscle,Fascia -Post Debridement (cm) - Length 10 -Post Debridement (cm) - Width 7 -Post Debridement (cm) - Depth 4.4 -Total Square (Post) (cm) 70 -Area of Debridement (cm) - Length 10 -Area of Debridement (cm) - Width 7 -Total Square (Area) (cm) 70 -Tunneling Yes -Tunneling Position (O'clock) 3 -Tunneling Distance (cm) 4.6 -Undermining/Tunneling No -Circular Undermining No -Wound/Ulcer Outcome Not Healed -Ulcer Cleansing Rinsed/ Irrigated with Saline -Foul Odor after Cleansing No -Bioengineered Tissue No -Bleeding Controlled with Pressure -Treatment Response Procedure Tolerated Well -Offloading No -Debridement - Muscle / Fascia, 1st Yes 20sq cm -Debridement, Muscle/Fascia, ea addt'l 3 20sq cm or part thereof Pain Scale: 0-10 Numeric Is Patient Pain Free? Yes LARISSA - Nurse 3 - General Ulcer D/C NN Start: 12/22/23 14:17 Freq: Status: Active Protocol: Activity Type Activity Date Activity User E-sign Co-sign Detail Recorded Client Recorded Date Recorded By Document 12/22/23 15:10 [facility] [id number] 12/22/23 15:10 [facility] 12/22/23 15:10 Wound Care Center Nurse 3 #1 sacrum -Ulcer Cleansing Rinsed/ Irrigated with Saline -Foul Odor after Cleansing No -Negative Pressure Wound Therapy Continue -Setting (mmHg) 150 -Negative Pressure is Continuous -NPWT Application Charge NPWT & Debridement (nc ) Treatment Response Procedure Tolerated Well Pain Scale: 0-10 Numeric Is Patient Pain Free? Yes WC - Visit Discharge Discharge Condition Stable Ambulatory Status Wheelchair Transportation Private Auto Accompanied by MOM Assessment/Plan Assessment/Plan (1) Stage IV pressure ulcer of sacral region: CODE(S): L89.154 - Pressure ulcer of sacral region, stage 4 (2) Spina bifida: CODE(S): Q05.9 - Spina bifida, unspecified QUALIFIERS: Spinal region: lumbosacral Presence of hydrocephalus: with hydrocephalus Qualified Code(s): Q05.2 - Lumbar spina bifida with hydrocephalus (3) Wheelchair dependence: CODE(S): Z99.3 - Dependence on wheelchair (4) Hydrocephalus: CODE(S): G91.9 - Hydrocephalus, unspecified QUALIFIERS: Hydrocephalus type: unspecified Qualified Code(s): G91.9 - Hydrocephalus, unspecified PLAN: Plan Wound care - Silver alginate covered with fluffed gauze and topped with ABD daily after washing with soap and water. Will order a Wound VAC at 150 mmHg to be changed 3 times per week. Wash ulcer with soap and water at the time of the dressing changes. Had a wound culture on 05/27/23. It showed MDR Acinetobacter baumannii, Enterococcus faecalis, and Methicillin resistant Staphylococcus haemolyticus. He was on IV antibiotics from Infectious Diseases for antibiotic management. Patient completed Meropenem. Referred him to plastics at [facility] for evaluation for closure of flap. He never saw a plastic surgeon and his mother has decided to stay in [place] for the time being. Did express to patient and his mother that he really needs to be off loading and staying off this ulcer. Stressed importance of a low air loss mattress. Encouraged supplementation with protein to help with wound healing. Follow up [address] Arechiga's previous note: He has a new Roho cushion for his wheelchair. He has a memory foam mattress at home. He states a hospital low air loss bed won't fit into their trailer. His mother states that he never has any red areas or pressure areas when he is in bed. A memory foam mattress is not adequate for a Stage IV pressure sore. When the wound is closed with muscle flaps, a hospital low air loss bed is paramount. Otherwise the memory foam mattress will place extra pressure on the surgical incision, and there is a very high likelihood that the flap would fail. The patient and family are anxious for wound closure. Stressed the importance of control of infection, maximize the nutrition, and have proper low air loss bed before considering wound closure. I anticipate wound closure in 6 months, tentative. Initially will need another excision along with partial ostectomy to evaluate for osteomyelitis. The gluteus apollo V-Y myocutaneous flaps appear to be maximally advanced. Not sure how much advancement I will get for closure even by mobilizing and advancing both gluteus apollo myocutaneous flaps. Vastus lateralis muscular flaps can be used as well. However its blood supply is in the proximal thigh. He has bilateral incisions from previous hip surgery. Don't know preop whether these muscle flaps will be able to be used because of previous surgical dissection that may have compromised the proximal blood supply to the vastus lateralis muscle. So when the muscle is elevated from distal to proximal, there is a chance the muscle won't survive because of compromised proximal blood supply. Ultimately the last resort would be a total thigh flap to provide enough soft tissue to close the pressure sore. The flap necessitates an amputation. The mother stated that they are not in favor of an amputation. The patient may benefit from being evaluated at a tertiary center for possible wound closure with microvascular free tissue transfer if the above mentioned muscles end up being inadequate for complete wound closure. At the time of the excision of the pressure sore in preparation for wound closure with muscle flaps, will check a Prealbumin and send soft tissue and bone to Pathology as well as to Microbiology. A positive culture will necessitate antibiotic therapy. Usually can then proceed with the muscle flap closure in about 2 weeks after the excision. However if Pseudomonas is present or MRSA is present, then would need to treat for 6 weeks before thinking about wound closure.
--- NOTE | 2023-12-25 09:30 | WC ---
PHOTO 12/22/2023 SACRAL
[2024-01-05 13:37] VITALS: BP 154/106; PULSE 87; RESP 18; TEMP 36.7; BMI 23.7
--- NOTE | 2024-01-05 15:39 | PN.PCM_ITS ---
History of Present Illness Date of Service: 01/05/24 Chief Complaint: Recurrent left sacral pressure sore, Stage IV. History of Wound: 27 year old man with a history of Spina bifida presented to the [facility] with a recurrent left sacral pressure sore that started a couple of months ago according to the patient. He bumped his buttocks sometime during the summer and did not tell his mother until it was infected and draining. He initially went to [facility] in April,, and was hospitalized 3 days for IV antibiotics with Meropenem and Clindamycin. Also received a dose of Vancomycin in the ED and had a skin rash. CT showed a rim- enhancing perirectal fluid collection measuring 3.9 x 6.2 cm, compatible with an abscess. He was transferred to [facility] where an I&D was performed. He has a history of Spina bifida which he has had bilateral hip surgery for hip dysplasia at age 8 and another surgery on legs bilaterally to help him wear braces to stand, which he never has been able to do. He had a sacral muscle flap at age 14 at [facility] for an ulcer. Also has a history of hydrocephalous with a shunt. Surgery 07/16/22 - Excision recurrent left sacral pressure sore, Stage IV, with partial ostectomy for osteomyelitis. Wound Care - [facility]. Operative tissue and bone cultures from 07/16/22 were positive for Enterobacter cloacae complex. He was treated with Levaquin. Pathology from 07/16/22 showed chronic reparative and reactive change. No evidence of acute osteomyelitis. Recent wound culture from 05/27/23 showed MDR Acinetobacter baumannii, Enterococcus faecalis, and Methicillin resistant Staphylococcus haemolyticus. Infectious Diseases has been consulted to assist with antibiotic management (PO vs IV). Prealbumin from 07/17/22 was 14.6. Encourage nutritional supplementation with protein to help the healing process. CT Abdomen/Pelvis from 01/29/23 - There is sclerosis of the underlying sacrum suggestive of possible chronic osteomyelitis. There is superior migration of the proximal left femur. There is deformity of the proximal left femur with the old fracture of the left femoral head. Today denies fever. His appetite is ok. Progress of Wound: His mother states that they have been having a difficult time with a good seal on the wound VAC. She states that Latonya perspires a lot when it is warm (especially at night), and they will get a leak. He has a scabby/erythematous spot on his buttocks distal to the ulcer. The sacral ulcer is slightly smaller. Ulcer bed is beefy pink. No odor or clinical signs of infection. He has some curling of the edges of his wound, especially on the lateral aspects of the ulcer. His mother has been changing his wound VAC dressing 3 times per week. She did remove the wound VAC last night and started Dakin's dressing changes because he developed an air leak that she was not able to seal. Objective Data Objective Data Vital Signs: Vital Signs Temp Pulse Resp BP O2 Del Method 98.1 F 87 18 154/106 H Room Air 01/05/24 13:37 01/05/24 13:37 01/05/24 13:37 01/05/24 13:37 12/22/23 14:17 Oxygen Delivery Method Room Air Weight: 175 lb Body Mass Index (BMI) 23.7 Charges/Coding Procedures Integumentary 111xxx-113xx: [id number] Camelia musc/fascia 20 sq cm/< Add On Codes: 00808 Camelia musc/fascia add-on (x3) Debridement Note Debridement Note Wound debrided: #1 Sacral area. Laterality: Not Applicable Wound Grade/Stage: IV. Type of Debridement: Excisional debridement Anesthesia Used: 4% Lidocaine Solution Depth: Down to and including healthy tissue, in the subcutaneous layer, to muscle and to bone (bone is palpable but not exposed and not debrided.) Percentage of wound debrided: 100 Instrument Used: 7mm curette Tissue Removed: subcutaneous tissue and muscle. Severity: Fat Layer Exposed (muscle is exposed. bone is palpable but not exposed and not debrided.) Amount of bleeding with debridement: Mild Bleeding Controlled with: Pressure and Compression and gauze Patient tolerated procedure: Patient tolerated procedure well Debridement Free Text: Ulcer into the muscle with bone palpable but covered with granulation tissue. Post-Debridement Measurements and Additional Note: Post-Debridement Measurements/Treatment WC - Nurse 1 - General Ulcer Assessment Start: 12/22/23 14:17 Freq: Status: Active Protocol: ANDREW Activity Type Activity Date Activity User E-sign Co-sign Detail Recorded Client Recorded Date Recorded By Document 12/22/23 14:17 KW h 12/22/23 14:23 KW Document 01/05/24 13:37 DL [email or web address] 01/05/24 13:44 DL 12/22/23 01/05/24 14:17 13:37 - Today's Visit Information Type of service Follow-up Visit Follow-up Visit (Physician/NUCLEAR MEDICINE TECH (Physician/NUCLEAR MEDICINE TECH ) ) Arrival Mode Wheelchair Ambulatory Transfer Assistance None Accompanied by mom Patient Identification Verified (Name & Yes Yes ) Patient Requires Transmission-Based No Precautions Height and Weight Body Mass Index (BMI) 23.7 23.7 BMI Classification Normal Normal Vital Signs Temperature (97.8 F-99.1 F) 97.3 F L 98.1 F Temperature Source Temporal Temporal Pulse Rate (60-100) 89 87 Pulse Location Monitor Monitor Respiratory Rate (12-18) 16 18 Respiratory rate source Observation Observation Oxygen Delivery Method Room Air Blood Pressure (90/60-120/80) 108/55 L 154/106 H Blood Pressure Mean (mm Hg) 72 122 Source Monitor Monitor Position Sitting Blood Pressure Location Right Arm History Since Last Visit- (Skip if this is Patient's initial visit) Have you changed medications since your No No last visit? Any new allergies or adverse reactions No No Had a fall/change in ADL's that may No No increase risk of falls Signs or symptoms of abuse and/or No No neglect since last visit Have you been in the hospital since your No No last visit? Has dressing in place as prescribed Yes Yes Has compression in place as prescribed N/A N/A Has offloadiing in place as prescribed N/A Yes Experienced any changes in pain level or No No management Left Footwear Regular Shoe Right Footwear Regular Shoe Pain Scale: 0-10 Numeric Is Patient Pain Free? Yes Yes - Nurse 1 - General Ulcer Measurement Start: 12/22/23 14:17 Freq: Status: Active Protocol: Activity Type Activity Date Activity User E-sign Co-sign Detail Recorded Client Recorded Date Recorded By Document 12/22/23 14:17 KW h 12/22/23 14:23 KW Document 01/05/24 13:37 DL [email or web address] 01/05/24 13:44 DL 12/22/23 01/05/24 14:17 13:37 Wound Center Nurse 1 #1 sacrum -Current Size (cm) - Length 11.1 10.2 -Current Size (cm) - Width 3.6 5.1 -Current Size (cm) - Depth 3.6 4.2 -Total Square Cm 39.96 52.02 -Date of Last Picture (Recall this 12/22/23 field) -Photo Taken Yes -Undermining/Tunneling Yes -Undermining/Tunneling Starts (O'clock 9 8 ) -Undermining/Tunneling Ends (O'clock) 5 11 -Maximum Distance (cm) 5.5 4.2 -Undermining/Tunneling Starts #2 (O' 1 clock) -Undermining/Tunneling Ends #2 (O' 5 clock) -Maximum Distance #2 (cm) 2.5 -Exudate Amt Medium Medium -Exudate Type Serosanguineous Serosanguineous -Wound Margin Distinct, Distinct, Outline Outline Attached Attached -Granulation Amt Large (67-100%) Large (67-100%) -Granulation Quality [place] Red -Necrosis Amt None Present (0 %) -Structure Exposed Bone,N/A -Texture (Meliza-wound Skin Appearance) Assessed Scarring -Moisture (Meliza-wound Skin Appearance) Assessed, No Abnormality Maceration -Color (Meliza-wound Skin Appearance) Assessed No Abnormality -Temperature (Meliza-wound Skin No Abnormality Appearance) (Pt Warm) -Tenderness on Palpation (Meliza-wound No Skin Appearance) -Ulcer Cleansing Soap and Water Soap and Water -Foul Odor after Cleansing No No -Anesthetic Used 4% Lidocaine 4% Lidocaine Solution Solution -Wound Comment(s) tapping bone, not exposed. WC - Nurse 2 - General Ulcer CM Notes Start: 12/22/23 14:17 Freq: Status: Active Protocol: Activity Type Activity Date Activity User E-sign Co-sign Detail Recorded Client Recorded Date Recorded By Document 12/22/23 14:34 00 12/22/23 14:40 Document 01/05/24 13:56 [facility] [email or web address] 01/05/24 14:09 [facility] 12/22/23 01/05/24 14:34 13:56 Wound Center Nurse 2 #1 sacrum -Time 13:56 -Correct Patient Yes Yes -Correct Side, Site, Position Yes Yes -Correct Procedure Yes Yes -Procedure Performed Yes Yes -Type of Procedure Debridement Debridement -Clinical Debridement Muscle / Fascia Muscle / Fascia -Tissue Removed Muscle,Fascia Muscle -Post Debridement (cm) - Length 10 11 -Post Debridement (cm) - Width 7 6.5 -Post Debridement (cm) - Depth 4.4 3 -Total Square (Post) (cm) 70 71.5 -Area of Debridement (cm) - Length 10 11 -Area of Debridement (cm) - Width 7 6.5 -Total Square (Area) (cm) 70 71.5 -Tunneling Yes No -Tunneling Position (O'clock) 3 -Tunneling Distance (cm) 4.6 -Undermining/Tunneling No No -Circular Undermining No No -Wound/Ulcer Outcome Not Healed Not Healed -Ulcer Cleansing Rinsed/ Rinsed/ Irrigated with Irrigated with Saline Saline -Foul Odor after Cleansing No No -Bioengineered Tissue No No -Bleeding Controlled with Pressure Pressure -Treatment Response Procedure Procedure Tolerated Well Tolerated Well -Offloading No No -Debridement - Muscle / Fascia, 1st Yes Yes 20sq cm -Debridement, Muscle/Fascia, ea addt'l 3 3 20sq cm or part thereof Pain Scale: 0-10 Numeric Is Patient Pain Free? Yes Yes - Nurse 3 - General Ulcer D/C NN Start: 12/22/23 14:17 Freq: Status: Active Protocol: Activity Type Activity Date Activity User E-sign Co-sign Detail Recorded Client Recorded Date Recorded By Document 12/22/23 15:10 [facility] [email or web address] 12/22/23 15:10 [facility] Document 01/05/24 14:15 KW l 01/05/24 14:15 KW 12/22/23 01/05/24 15:10 14:15 Wound Care Center Nurse 3 #1 sacrum -Ulcer Cleansing Rinsed/ Irrigated with Saline -Foul Odor after Cleansing No -Negative Pressure Wound Therapy Continue -Setting (mmHg) 150 -Negative Pressure is Continuous -Other Dressing DAKINS SOAKED GAUZE -Primary Dressing Covered/Secured with Dry Gauze, Secured with Tape -NPWT Application Charge NPWT & Debridement (nc ) Treatment Response Procedure Tolerated Well Pain Scale: 0-10 Numeric Is Patient Pain Free? Yes Yes - Visit Discharge Discharge Condition Stable Stable Ambulatory Status Wheelchair Wheelchair Transportation Private Auto Private Auto Accompanied by MOM Medication Reconcilliation completed & No provided to patient/care provider Clinical Summary of Care Provided Yes Assessment/Plan Assessment/Plan (1) Stage IV pressure ulcer of sacral region: CODE(S): L89.154 - Pressure ulcer of sacral region, stage 4 (2) Spina bifida: CODE(S): Q05.9 - Spina bifida, unspecified QUALIFIERS: Spinal region: lumbosacral Presence of hydrocephalus: with hydrocephalus Qualified Code(s): Q05.2 - Lumbar spina bifida with hydrocephalus (3) Wheelchair dependence: CODE(S): Z99.3 - Dependence on wheelchair (4) Hydrocephalus: CODE(S): G91.9 - Hydrocephalus, unspecified QUALIFIERS: Hydrocephalus type: unspecified Qualified Code(s): G91.9 - Hydrocephalus, unspecified PLAN: Plan Wound care - Dakin's 0.25% moistened gauze covered with ABD daily. Take wound V AC hol until 01/08/24 to help with meliza wound excoriation. When restart the Wound VAC at 150 mmHg to be changed 3 times per week. Wash ulcer with soap and water at the time of the dressing changes. Had a wound culture on 05/27/23. It showed MDR Acinetobacter baumannii, Enterococcus faecalis, and Methicillin resistant Staphylococcus haemolyticus. He was on IV antibiotics from Infectious Diseases for antibiotic management. Patient completed Meropenem. Referred him to plastics at [facility] [place] for evaluation for closure of flap. He never saw a plastic surgeon and his mother has decided to stay in [place] for the time being. Did express to patient and his mother that he really needs to be off loading and staying off this ulcer. Stressed importance of a low air loss mattress. Encouraged supplementation with protein to help with wound healing. Follow up [address] Arechiga's previous note: He has a new Roho cushion for his wheelchair. He has a memory foam mattress at home. He states a hospital low air loss bed won't fit into their trailer. His mother states that he never has any red areas or pressure areas when he is in bed. A memory foam mattress is not adequate for a Stage IV pressure sore. When the wound is closed with muscle flaps, a hospital low air loss bed is paramount. Otherwise the memory foam mattress will place extra pressure on the surgical incision, and there is a very high likelihood that the flap would fail. The patient and family are anxious for wound closure. Stressed the importance of control of infection, maximize the nutrition, and have proper low air loss bed before considering wound closure. I anticipate wound closure in 6 months, tentative. Initially will need another excision along with partial ostectomy to evaluate for osteomyelitis. The gluteus apollo V-Y myocutaneous flaps appear to be maximally advanced. Not sure how much advancement I will get for closure even by mobilizing and advancing both gluteus apollo myocutaneous flaps. Vastus lateralis muscular flaps can be used as well. However its blood supply is in the proximal thigh. He has bilateral incisions from previous hip surgery. Don't know preop whether these muscle flaps will be able to be used because of previous surgical dissection that may have compromised the proximal blood supply to the vastus lateralis muscle. So when the muscle is elevated from distal to proximal, there is a chance the muscle won't survive because of compromised proximal blood supply. Ultimately the last resort would be a total thigh flap to provide enough soft tissue to close the pressure sore. The flap necessitates an amputation. The mother stated that they are not in favor of an amputation. The patient may benefit from being evaluated at a tertiary center for possible wound closure with microvascular free tissue transfer if the above mentioned muscles end up being inadequate for complete wound closure. At the time of the excision of the pressure sore in preparation for wound closure with muscle flaps, will check a Prealbumin and send soft tissue and bone to Pathology as well as to Microbiology. A positive culture will necessitate antibiotic therapy. Usually can then proceed with the muscle flap closure in about 2 weeks after the excision. However if Pseudomonas is present or MRSA is present, then would need to treat for 6 weeks before thinking about wound closure.
--- NOTE | 2024-01-14 09:58 | WC ---
PHOTO 01/05/24 [facility]
== END 2024-01-14 23:59 | disposition home or self-care (01) ==
LOC: WC 13:30
PROVIDERS: PCP Internal Medicine; Visit Provider Nurse Practitioner Family
DX: L89.154 Pressure ulcer of sacral region, stage 4 (principal); Q05.2 Lumbar spina bifida with hydrocephalus; R21 Rash and other nonspecific skin eruption; Z99.3 Dependence on wheelchair
CPT/HCPCS: 11043; 11046

== ENCOUNTER 2024-02-09 13:30 | Outpatient (RCR) | payer MEDICARE, MEDICAID, SELFPAY ==
[2024-01-15 00:20] VITALS: BP 109/48; PULSE 104; RESP 18; TEMP 36.2; BMI 23.7
[2024-01-21 15:32] VITALS: BP 103/54; PULSE 94; RESP 18; TEMP 36.9; BMI 23.7
--- NOTE | 2024-01-21 16:28 | PN.PCM_ITS ---
History of Present Illness Date of Service: 01/21/24 Chief Complaint: Recurrent left sacral pressure sore, Stage IV. History of Wound: 27 year old man with a history of Spina bifida presented to the Wound Center with a recurrent left sacral pressure sore that started a couple of months ago according to the patient. He bumped his buttocks sometime during the summer and did not tell his mother until it was infected and draining. He initially went to [facility] in April,, and was hospitalized 3 days for IV antibiotics with Meropenem and Clindamycin. Also received a dose of Vancomycin in the ED and had a skin rash. CT showed a rim- enhancing perirectal fluid collection measuring 3.9 x 6.2 cm, compatible with an abscess. He was transferred to [facility] where an I&D was performed. He has a history of Spina bifida which he has had bilateral hip surgery for hip dysplasia at age 8 and another surgery on legs bilaterally to help him wear braces to stand, which he never has been able to do. He had a sacral muscle flap at age 14 at [facility] for an ulcer. Also has a history of hydrocephalous with a shunt. Surgery 07/16/22 - Excision recurrent left sacral pressure sore, Stage IV, with partial ostectomy for osteomyelitis. Wound Care - [facility]. Operative tissue and bone cultures from 07/16/22 were positive for Enterobacter cloacae complex. He was treated with Levaquin. Pathology from 07/16/22 showed chronic reparative and reactive change. No evidence of acute osteomyelitis. Recent wound culture from 05/27/23 showed MDR Acinetobacter baumannii, Enterococcus faecalis, and Methicillin resistant Staphylococcus haemolyticus. Infectious Diseases has been consulted to assist with antibiotic management (PO vs IV). Prealbumin from 07/17/22 was 14.6. Encourage nutritional supplementation with protein to help the healing process. CT Abdomen/Pelvis from 01/29/23 - There is sclerosis of the underlying sacrum suggestive of possible chronic osteomyelitis. There is superior migration of the proximal left femur. There is deformity of the proximal left femur with the old fracture of the left femoral head. Today denies fever. His appetite is ok. Progress of Wound: Ulcer is nice beefy pink color. His mother states that they still sometimes have difficulty with the wound VAC seal but she has been able to keep it on and sealed for the most part. Meliza wound is clear. Objective Data Objective Data Vital Signs: Vital Signs Temp Pulse Resp BP 98.4 F 94 18 103/54 L 01/21/24 15:32 01/21/24 15:32 01/21/24 15:32 01/21/24 15:32 Weight: 175 lb Body Mass Index (BMI) 23.7 Charges/Coding Procedures Integumentary [id number]: [id number] Camelia musc/fascia 20 sq cm/< Add On Codes: 27802 Camelia musc/fascia add-on (x3) Debridement Note Debridement Note Wound debrided: #1 Sacral area. Laterality: Not Applicable Wound Grade/Stage: IV. Type of Debridement: Excisional debridement Anesthesia Used: 4% Lidocaine Solution Depth: Down to and including healthy tissue, in the subcutaneous layer, to muscle and to bone (bone is palpable but not exposed and not debrided.) Percentage of wound debrided: 100 Instrument Used: 7mm curette Tissue Removed: subcutaneous tissue and muscle. Severity: Fat Layer Exposed (muscle is exposed. bone is palpable but not exposed and not debrided.) Amount of bleeding with debridement: Mild Bleeding Controlled with: Pressure and Compression and gauze Patient tolerated procedure: Patient tolerated procedure well Debridement Free Text: Ulcer into the muscle with bone palpable but covered with granulation tissue. Post-Debridement Measurements and Additional Note: Post-Debridement Measurements/Treatment - Nurse 1 - General Ulcer Assessment Start: 01/21/24 15:32 Freq: Status: Active Protocol: .LOWEX Activity Type Activity Date Activity User E-sign Co-sign Detail Recorded Client Recorded Date Recorded By Document 01/21/24 15:32 RB wound 01/21/24 15:33 RB 01/21/24 15:32 - Today's Visit Information Type of service Follow-up Visit (Physician/SEMICONDUCTOR PROCESSOR ) Arrival Mode Wheelchair Transfer Assistance Manual Patient Identification Verified (Name & Yes ) Patient Requires Transmission-Based No Precautions Height and Weight Body Mass Index (BMI) 23.7 BMI Classification Normal Vital Signs Temperature (97.8 F-99.1 F) 98.4 F Temperature Source Temporal Pulse Rate (60-100) 94 Pulse Location Monitor Respiratory Rate (12-18) 18 Respiratory rate source Observation Blood Pressure (90/60-120/80) 103/54 L Blood Pressure Mean (mm Hg) 70 Source Monitor Position Semi-Fowlers Blood Pressure Location Left Arm History Since Last Visit- (Skip if this is Patient's initial visit) Have you changed medications since your No last visit? Any new allergies or adverse reactions No Had a fall/change in ADL's that may No increase risk of falls Signs or symptoms of abuse and/or No neglect since last visit Have you been in the hospital since your No last visit? Has dressing in place as prescribed Yes Has compression in place as prescribed No Has offloadiing in place as prescribed No Experienced any changes in pain level or No management Pain Scale: 0-10 Numeric Is Patient Pain Free? Yes WC - Nurse 1 - General Ulcer Measurement Start: 01/21/24 15:32 Freq: Status: Active Protocol: Activity Type Activity Date Activity User E-sign Co-sign Detail Recorded Client Recorded Date Recorded By Document 01/21/24 15:32 RB wound 01/21/24 15:33 RB 01/21/24 15:32 Wound Center Nurse 1 #1 sacrum -Combined with other wound No -Current Size (cm) - Length 9.5 -Current Size (cm) - Width 4 -Current Size (cm) - Depth 4.5 -Total Square Cm 38.0 -Tunneling No -Undermining/Tunneling Yes -Undermining/Tunneling Starts (O'clock 3 ) -Undermining/Tunneling Ends (O'clock) 3 -Maximum Distance (cm) 3.7 -Circular Undermining No -Exudate Amt Large -Exudate Type Serosanguineous -Wound Margin Thickened & Rolled Under -Granulation Amt Medium (34-66%) -Granulation Quality [place] -Slough/Fibrin Yes -Necrosis Amt Medium (34-66%) -Necrotic Tissue Type Adherent Slough -Structure Exposed N/A -Texture (Meliza-wound Skin Appearance) Assessed -Moisture (Meliza-wound Skin Appearance) Assessed -Color (Meliza-wound Skin Appearance) Assessed -Temperature (Meliza-wound Skin No Abnormality Appearance) (Pt Warm) -Tenderness on Palpation (Meliza-wound No Skin Appearance) -Ulcer Cleansing Wound Cleanser -Foul Odor after Cleansing No -Anesthetic Used 4% Lidocaine Solution LARISSA - Nurse 2 - General Ulcer CM Notes Start: 01/21/24 15:32 Freq: Status: Active Protocol: Activity Type Activity Date Activity User E-sign Co-sign Detail Recorded Client Recorded Date Recorded By Document 01/21/24 15:55 GM 01/21/24 15:57 GM 01/21/24 15:55 Wound Center Nurse 2 -Time 15:56 -Correct Patient Yes -Correct Side, Site, Position Yes -Correct Procedure Yes -Procedure Performed Yes -Type of Procedure Debridement -Clinical Debridement Muscle / Fascia -Tissue Removed Muscle -Post Debridement (cm) - Length 10.0 -Post Debridement (cm) - Width 7.0 -Post Debridement (cm) - Depth 4.3 -Total Square (Post) (cm) 70.00 -Area of Debridement (cm) - Length 10.0 -Area of Debridement (cm) - Width 7.0 -Total Square (Area) (cm) 70.00 -Tunneling No -Undermining/Tunneling No -Circular Undermining No -Wound/Ulcer Outcome Not Healed -Ulcer Cleansing Rinsed/ Irrigated with Saline -Foul Odor after Cleansing No -Bioengineered Tissue No -Bleeding Controlled with Pressure -Treatment Response Procedure Tolerated Well -Debridement - Muscle / Fascia, 1st Yes 20sq cm Pain Scale: 0-10 Numeric Is Patient Pain Free? Yes - Nurse 3 - General Ulcer D/C NN Start: 01/21/24 15:32 Freq: Status: Active Protocol: Activity Type Activity Date Activity User E-sign Co-sign Detail Recorded Client Recorded Date Recorded By Document 01/21/24 16:23 RB wound 01/21/24 16:24 RB Edit Result 01/21/24 16:23 RB (1) wound 01/21/24 16:25 RB (1) #1 sacrum - NPWT Application Charge NPWT > 50 sq cm ($ => NPWT </= 50 sq cm ) => ($) 01/21/24 16:23 Wound Care Center Nurse 3 #1 sacrum -Negative Pressure Wound Therapy Continue -Setting (mmHg) 150 -Negative Pressure is Continuous -NPWT Application Charge NPWT </= 50 sq cm ($) Meliza-Wound Care Barrier Treatment Response Procedure Tolerated Well Pain Scale: 0-10 Numeric Is Patient Pain Free? Yes - Visit Discharge Discharge Condition Stable Ambulatory Status Ambulatory Transportation Private Auto Medication Reconcilliation completed & No provided to patient/care provider Clinical Summary of Care Provided Yes Assessment/Plan Assessment/Plan (1) Stage IV pressure ulcer of sacral region: CODE(S): L89.154 - Pressure ulcer of sacral region, stage 4 (2) Spina bifida: CODE(S): Q05.9 - Spina bifida, unspecified QUALIFIERS: Spinal region: lumbosacral Presence of hydrocephalus: with hydrocephalus Qualified Code(s): Q05.2 - Lumbar spina bifida with hydrocephalus (3) Wheelchair dependence: CODE(S): Z99.3 - Dependence on wheelchair (4) Hydrocephalus: CODE(S): G91.9 - Hydrocephalus, unspecified QUALIFIERS: Hydrocephalus type: unspecified Qualified Code(s): G91.9 - Hydrocephalus, unspecified PLAN: Plan Wound care - Dakin's 0.25% moistened gauze covered with ABD daily. Take wound VAC holiday until 01/08/24 to help with meliza wound excoriation. When restart the Wound VAC at 150 mmHg to be changed 3 times per week. Wash ulcer with soap and water at the time of the dressing changes. Had a wound culture on 05/27/23. It showed MDR Acinetobacter baumannii, Enterococcus faecalis, and Methicillin resistant Staphylococcus haemolyticus. He was on IV antibiotics from Infectious Diseases for antibiotic management. Patient completed Meropenem. Referred him to plastics at [facility] for evaluation for closure of flap. He never saw a plastic surgeon and his mother has decided to stay in [place] for the time being. Did express to patient and his mother that he really needs to be off loading and staying off this ulcer. Stressed importance of a low air loss mattress. Encouraged supplementation with protein to help with wound healing. Follow up [address] Rodriguez, the new plastic surgeon in [facility]. From Dr. Arechiga's previous note: He has a new Roho cushion for his wheelchair. He has a memory foam mattress at home. He states a hospital low air loss bed won't fit into their trailer. His mother states that he never has any red areas or pressure areas when he is in bed. A memory foam mattress is not adequate for a Stage IV pressure sore. When the wound is closed with muscle flaps, a hospital low air loss bed is paramount. Otherwise the memory foam mattress will place extra pressure on the surgical incision, and there is a very high likelihood that the flap would fail. The patient and family are anxious for wound closure. Stressed the importance of control of infection, maximize the nutrition, and have proper low air loss bed before considering wound closure. I anticipate wound closure in 6 months, tentative. Initially will need another excision along with partial ostectomy to evaluate for osteomyelitis. The gluteus apollo V-Y myocutaneous flaps appear to be maximally advanced. Not sure how much advancement I will get for closure even by mobilizing and advancing both gluteus apollo myocutaneous flaps. Vastus lateralis muscular flaps can be used as well. However its blood supply is in the proximal thigh. He has bilateral incisions from previous hip surgery. Don't know preop whether these muscle flaps will be able to be used because of previous surgical dissection that may have compromised the proximal blood supply to the vastus lateralis muscle. So when the muscle is elevated from distal to proximal, there is a chance the muscle won't survive because of compromised proximal blood supply. Ultimately the last resort would be a total thigh flap to provide enough soft tissue to close the pressure sore. The flap necessitates an amputation. The mother stated that they are not in favor of an amputation. The patient may benefit from being evaluated at a tertiary center for possible wound closure with microvascular free tissue transfer if the above mentioned muscles end up being inadequate for complete wound closure. At the time of the excision of the pressure sore in preparation for wound closure with muscle flaps, will check a Prealbumin and send soft tissue and bone to Pathology as well as to Microbiology. A positive culture will necessitate antibiotic therapy. Usually can then proceed with the muscle flap closure in about 2 weeks after the excision. However if Pseudomonas is present or MRSA is present, then would need to treat for 6 weeks before thinking about wound closure.
[2024-02-09 13:11] VITALS: BP 118/77; PULSE 108; RESP 18; TEMP 37.1; BMI 23.7
--- NOTE | 2024-02-09 14:25 | TISS_PTH ---
PATIENT: INESSA ADAMES PETRONA LOC: U#:[id number] AGE/SX: 28/M ROOM: RE02/09/[address]: Dr. Myron Rodriguez MD : 1995 BED: DIS: 02/14/2024 SPEC #: [id number] RECD: 02/10/24 11:51 STATUS: ELENO REVladislav #: [id number] JOSE ALFREDO: 02/09/24 14:[address]: Myron Rodriguez DEPT: SURGICAL PATHOLOGY RECD BY: Elle Parry ENTERED: 02/10/24 12:54 SP TYPE: Tissue Bx OTHR DR: Dr. Lucia Parmar MD No Primary Care Phys Tissues: Sacrum, NOS Procedures: Surgery Specimen Level IV HEADER OPERATION: Tissue excision obtain from sacral ulcer stage IV PRE-OP DIAGNOSIS: Ulcer >2 years, non healing TISSUE SUBMITTED: Tissue biopsy- sacrum MICROSCOPIC DIAGNOSIS Skin and soft tissue of sacral region, biopsy: Acanthosis and fibrosis. Focal hyperkeratosis. Mild chronic inflammation of dermis. No evidence of malignancy. See comment. EULALIO/ 02/11/2024 COMMENT A distinct ulcer is not identified. Clinical correlation is suggested. Case has been reviewed in consultation with Dr. Villalba who concurs with the above diagnosis. IDC:[id number] MICROSCOPIC DESCRIPTION Slides are reviewed. GROSS DESCRIPTION Received in fixative is one container labeled with the patient's name and designated Sacrum ulcer biopsy. The specimen consists of a punch biopsy of irwin-white skin measuring 0.5cm in diameter and 0.5cm in length. The specimen is inked, bisected and submitted entirely in one cassette. 02/10/2024 TC:3 CPT:89285
--- NOTE | 2024-02-09 17:23 | PCM.WC.HP ---
History of Present Illness Date of Service: 02/09/24 Chief Complaint: Recurrent left sacral pressure sore, Stage IV. History of Wound: 27 year old man with a history of Spina bifida presented to the Wound Center with a recurrent left sacral pressure sore that started a couple of months ago according to the patient. He bumped his buttocks sometime during the summer and did not tell his mother until it was infected and draining. He initially went to [facility] in April,, and was hospitalized 3 days for IV antibiotics with Meropenem and Clindamycin. Also received a dose of Vancomycin in the ED and had a skin rash. CT showed a rim-enhancing perirectal fluid collection measuring 3.9 x 6.2 cm, compatible with an abscess. He was transferred to [facility] where an I&D was performed. He has a history of Spina bifida which he has had bilateral hip surgery for hip dysplasia at age 8 and another surgery on legs bilaterally to help him wear braces to stand, which he never has been able to do. He had a sacral muscle flap at age 14 at [facility] for an ulcer. Also has a history of hydrocephalous with a shunt. Surgery 07/16/22 - Excision recurrent left sacral pressure sore, Stage IV, with partial ostectomy for osteomyelitis. Wound Care - [facility]. Operative tissue and bone cultures from 07/16/22 were positive for Enterobacter cloacae complex. He was treated with Levaquin. Pathology from 07/16/22 showed chronic reparative and reactive change. No evidence of acute osteomyelitis. Recent wound culture from 05/27/23 showed MDR Acinetobacter baumannii, Enterococcus faecalis, and Methicillin resistant Staphylococcus haemolyticus. Infectious Diseases has been consulted to assist with antibiotic management (PO vs IV). Prealbumin from 07/17/22 was 14.6. Encourage nutritional supplementation with protein to help the healing process. CT Abdomen/Pelvis from 01/29/23 - There is sclerosis of the underlying sacrum suggestive of possible chronic osteomyelitis. There is superior migration of the proximal left femur. There is deformity of the proximal left femur with the old fracture of the left femoral head. Today denies fever. His appetite is ok. Progress of Wound: Current encounter, 09 February 2024: Patient here for follow-up. He is here with his mother, who is his primary caregiver. Latonya was a patient of a previous member of our practice , Dr. Arechiga , who performed an excision of the patient's sacral pressure ulcer in June 2022. The patient has been doing wound care ever since at the wound care center. They are currently using the wound VAC. They have had some granulation tissue at the base of the wound but there is been limited progress overall. Latonya and his mother are frustrated and would like to potentially change the wound care as the VAC is leaking often. The patient has diverting ostomy, but there is still some mucus that comes from the anus that sometimes causes it to leak. Of note he was treated for osteomyelitis in the past from positive bone cultures, but the wound has not been biopsied. He also has a history of a pressure sore reconstruction during adolescence at [facility] which his mother reports went quite well. [facility] Medical History Open wound Low iron Gastric reflux Methicillin resistant Staphylococcus epidermidis infection Cognitive decline Anxiety Psoriasis Uses wheelchair Kidney stone Seizures Incontinence of bowel Heartburn Non-smoker History of edema Hx of spina bifida Stage IV pressure ulcer of sacral region Congenital hip dysplasia Home Medications ?Medication ?Instructions ?Recorded ?Last Taken ?Type ferrous sulfate 325 mg (65 mg 325 mg PO DAILY@1200 90 days #90 01/31/23 Unknown Rx iron) tablet (FeroSul) tabs levetiracetam 500 mg tablet 500 mg PO BID #60 tabs 03/27/23 Unknown Rx (Keppra) catheter 14 Fr (Bard Coude Tip #120 ea 04/02/23 Unknown Rx Catheter) potassium chloride 20 mEq 40 meq (2 x 20 mEq) PO ONCE #2 tabs 04/02/23 09/22/23 Rx tablet,extended release(part/cryst) nystatin 100,000 unit/gram topical 1 applic topical BID 14 days #30 09/04/23 Unknown Rx cream grams levetiracetam 500 mg 500 mg PO BID SEIZURES 09/23/23 09/22/23 History tablet,extended release 24 hr (Keppra XR) Allergy/AdvReac Type Severity Reaction Status Date / Time latex Allergy Hives Verified 09/23/23 06:34 Penicillins Allergy Nausea/Vom/ Verified 09/23/23 06:34 Diarrhea levofloxacin (From Levaquin) AdvReac Mild Nausea/Vom/ Verified 09/23/23 06:34 Diarrhea Family History Other No significant family history Surgical History H/O bilateral hip replacements Colostomy in place Presence of urostomy S/P flap graft Ventricular shunt in place Social History household members: family current occupational status: disabled Smoking Status: Never smoker Electronic Cigarette Use: not used alcohol intake: never substance use type: does not use caffeine: Yes what type of physical activity do you participate in: none seatbelt use: always do you feel safe at home: Yes Vital Signs Vital Signs Vital Signs: 02/09/24 13:11 Temperature 98.8 F Temperature Source Temporal Pulse Rate 108 H Respiratory Rate 18 Blood Pressure 118/77 Blood Pressure Mean 90 Blood Pressure Source Monitor Blood Pressure Position Sitting Blood Pressure Location Right Arm Weight Weight: 175 lb Body Mass Index (BMI) 23.7 Physical Exam Narrative Large sacral wound with exposed muscle fascia at the base, 10.7 x 5 x 5 cm with 5 cm of undermining around the edges circumferentially. No undrained fluid collections. The wound does not go into or connect with the anus. There is good granulation tissue over the bone. There are some scars from previous potential rotation flaps/V to Y advancement The edges of the wound are slightly red and scaly, warranting a biopsy. Resp normal respiratory effort Cardio regular rate Neuro Neuro Narrative: Unable to move the lower extremities No spasms in the lower extremity and I am able to get his legs nearly straight, but there are some contractures at the knees (30 to 40 degree contractures). Debridement Note Debridement Note Laterality: Not Applicable Type of Debridement: Excisional debridement Anesthesia Used: 4% Lidocaine Solution Depth: to muscle Percentage of wound debrided: 100 Instrument Used: 7mm curette Severity: Necrosis of Muscle Amount of bleeding with debridement: Mild Bleeding Controlled with: Pressure Patient tolerated procedure: Patient tolerated procedure well Post-Debridement Measurements and Additional Note: Post-Debridement Measurements/Treatment LARISSA - Nurse 1 - General Ulcer Assessment Start: 01/21/24 15:32 Freq: Status: Active Protocol: ANDREW Activity Type Activity Date Activity User E-sign Co-sign Detail Recorded Client Recorded Date Recorded By Document 01/21/24 15:32 RB wound 01/21/24 15:33 RB Document 02/09/24 13:11 JF [id number] 02/09/24 13:17 JF 01/21/24 02/09/24 15:32 13:11 - Today's Visit Information Type of service Follow-up Visit Follow-up Visit (Physician/STONE CRUSHER OPERATOR (Physician/STONE CRUSHER OPERATOR ) ) Arrival Mode Wheelchair Wheelchair Transfer Assistance Manual Accompanied by mother Patient Identification Verified (Name & Yes Yes ) Patient Requires Transmission-Based No No Precautions Height and Weight Body Mass Index (BMI) 23.7 23.7 BMI Classification Normal Normal Vital Signs Temperature (97.8 F-99.1 F) 98.4 F 98.8 F Temperature Source Temporal Temporal Pulse Rate (60-100) 94 108 H Pulse Location Monitor Monitor Respiratory Rate (12-18) 18 18 Respiratory rate source Observation Observation Blood Pressure (90/60-120/80) 103/54 L 118/77 Blood Pressure Mean 70 90 Source Monitor Monitor Position Semi-Fowlers Sitting Blood Pressure Location Left Arm Right Arm History Since Last Visit- (Skip if this is Patient's initial visit) Have you changed medications since your No No last visit? Any new allergies or adverse reactions No No Had a fall/change in ADL's that may No No increase risk of falls Signs or symptoms of abuse and/or No No neglect since last visit Have you been in the hospital since your No No last visit? Has dressing in place as prescribed Yes Yes Has compression in place as prescribed No N/A Has offloadiing in place as prescribed No No Experienced any changes in pain level or No No management Left Footwear Regular Shoe Right Footwear Regular Shoe Pain Scale: 0-10 Numeric Is Patient Pain Free? Yes Yes - Nurse 1 - General Ulcer Measurement Start: 01/21/24 15:32 Freq: Status: Active Protocol: Activity Type Activity Date Activity User E-sign Co-sign Detail Recorded Client Recorded Date Recorded By Document 01/21/24 15:32 RB wound 01/21/24 15:33 RB Document 02/09/24 13:11 JF [id number] 02/09/24 13:17 01/21/24 02/09/24 15:32 13:11 Wound Center Nurse 1 #1 sacrum -Combined with other wound No No -Current Size (cm) - Length 9.5 10.0 -Current Size (cm) - Width 4 3.5 -Current Size (cm) - Depth 4.5 4.5 -Total Square Cm 38.0 35.00 -Photo Taken Yes -Epithelialization Small 1-33% -Tunneling No -Undermining/Tunneling Yes No -Undermining/Tunneling Starts (O'clock 3 ) -Undermining/Tunneling Ends (O'clock) 3 -Maximum Distance (cm) 3.7 -Circular Undermining No No -Exudate Amt Large Large -Exudate Type Serosanguineous Serosanguineous -Wound Margin Thickened & Flat & Intact Rolled Under -Granulation Amt Medium (34-66%) Medium (34-66%) -Granulation Quality Arbutus Arbutus -Slough/Fibrin Yes Yes -Necrosis Amt Medium (34-66%) Small (1-33%) -Necrotic Tissue Type Adherent Slough Adherent Slough -Structure Exposed N/A N/A -Texture (Meliza-wound Skin Appearance) Assessed Assessed -Moisture (Meliza-wound Skin Appearance) Assessed Assessed,Dry/ Scaly -Color (Meliza-wound Skin Appearance) Assessed Assessed -Temperature (Meliza-wound Skin No Abnormality No Abnormality Appearance) (Pt Warm) (Pt Warm) -Tenderness on Palpation (Meliza-wound No No Skin Appearance) -Ulcer Cleansing Wound Cleanser Wound Cleanser -Foul Odor after Cleansing No No -Anesthetic Used 4% Lidocaine 4% Lidocaine Solution Solution Lower Limb Edema Present NA WC - Nurse 2 - General Ulcer CM Notes Start: 01/21/24 15:32 Freq: Status: Active Protocol: Activity Type Activity Date Activity User E-sign Co-sign Detail Recorded Client Recorded Date Recorded By Document 01/21/24 15:55 GM 01/21/24 15:57 GM Edit Result 01/21/24 15:55 GM (1) [id number] 01/28/24 07:24 GM Document 02/09/24 14:10 JF [id number] 02/09/24 14:28 JF (1) #1 sacrum - Debridement, Muscle/Fascia, ea addt'l => 3 20sq cm or part thereof 01/21/24 02/09/24 15:55 14:10 Wound Center Nurse 2 #1 sacrum -Time 15:56 14:13 -Correct Patient Yes Yes -Correct Side, Site, Position Yes Yes -Correct Procedure Yes Yes -Procedure Performed Yes Yes -Type of Procedure Debridement Debridement -Clinical Debridement Muscle / Fascia Muscle / Fascia -Tissue Removed Muscle Muscle,Fascia -Post Debridement (cm) - Length 10.0 10.7 -Post Debridement (cm) - Width 7.0 5.0 -Post Debridement (cm) - Depth 4.3 5.0 -Total Square (Post) (cm) 70.00 53.50 -Area of Debridement (cm) - Length 10.0 10.7 -Area of Debridement (cm) - Width 7.0 5.0 -Total Square (Area) (cm) 70.00 53.50 -Tunneling No No -Undermining/Tunneling No No -Circular Undermining No No -Wound/Ulcer Outcome Not Healed Not Healed -Ulcer Cleansing Rinsed/ Rinsed/ Irrigated with Irrigated with Saline Saline -Foul Odor after Cleansing No No -Bioengineered Tissue No No -Bleeding Controlled with Pressure Pressure -Treatment Response Procedure Procedure Tolerated Well Tolerated Well -Offloading No -Pressure Reduction Wheelchair cushion -Debridement - Muscle / Fascia, 1st Yes Yes 20sq cm -Debridement, Muscle/Fascia, ea addt'l 3 2 20sq cm or part thereof -I&D / Paring / Biopsy Punch bx skin ( includes simple close, if done ), single lesion Pain Scale: 0-10 Numeric Is Patient Pain Free? Yes Yes WC - Nurse 3 - General Ulcer D/C NN Start: 01/21/24 15:32 Freq: Status: Active Protocol: Activity Type Activity Date Activity User E-sign Co-sign Detail Recorded Client Recorded Date Recorded By Document 01/21/24 16:23 RB wound 01/21/24 16:24 RB Edit Result 01/21/24 16:23 RB (1) wound 01/21/24 16:25 RB Document 02/09/24 14:47 DL [id number] 02/09/24 14:48 DL (1) #1 sacrum - NPWT Application Charge NPWT > 50 sq cm ($ => NPWT </= 50 sq cm ) => ($) 01/21/24 02/09/24 16:23 14:47 Wound Care Center Nurse 3 #1 sacrum -Ulcer Cleansing Soap and Water -Foul Odor after Cleansing No -Negative Pressure Wound Therapy Continue -Setting (mmHg) 150 -Negative Pressure is Continuous -Primary Dressing Applied Hysept ($) -Other Dressing dakins -Other Covering ABD -NPWT Application Charge NPWT </= 50 sq cm ($) Meliza-Wound Care Barrier Treatment Response Procedure Procedure Tolerated Well Tolerated Well Pain Scale: 0-10 Numeric Is Patient Pain Free? Yes Yes WC - Visit Discharge Discharge Condition Stable Stable Ambulatory Status Ambulatory Wheelchair Transportation Private Auto Private Auto Medication Reconcilliation completed & No provided to patient/care provider Clinical Summary of Care Provided Yes Notes: Vac discontinued today. Facility Type Home Health Orders Sent Yes Charges/Coding Visit Charges Office Visits / Consults: 65636 OV L5 Est 40min (25 modifier ) Procedures Integumentary 111xxx-113xx: [id number] Camelia musc/fascia 20 sq cm/< Add On Codes: 08971 Camelia musc/fascia add-on (x 2) Assessment/Plan Assessment/Plan (1) Decubitus ulcer of left buttock, stage 4: CODE(S): L89.324 - Pressure ulcer of left buttock, stage 4 PLAN: I am meeting Sacha Adam for the first time today Please see separate operative note above for the debridement portion of the office visit today He has slight contraction deformities at his knee joints, but I do not think these are contributing greatly to the current wound. He is not having any spasms, so from positioning standpoint he should be able to offload. He has a pressure offloading bed at home. I have biopsied the wound edge today and we will follow-up the results given chronicity of the wound. I have also switched to Dakin's wet-to-dry twice daily per mother's request. We are going to refer him to a dietary/nutrition consult. Also ordering nutrition labs today to check potential for wound healing. I began talking to Latonya and his mother today about reconstruction of his sacral pressure sore and what this will entail. We talked about making further incisions for flap dissection and the process of wound healing and need for pressure offloading. I told him that sometimes he make a bigger wound into a smaller wound through the surgeries, as there is still some wound breakdown eventually. I talked him about not sitting on the wound at all as it heals and the need for potential planning for a rehab facility following the surgery. They seemed understand and wanted to talk to me more about reconstruction at the next visit in 2 weeks. Follow-up results of the biopsy and nutrition labs at the next visit in 2-week. Dakin's wet to dry twice daily for dressings,
--- NOTE | 2024-02-11 13:29 | WC ---
PHOTO 02/09/24 SACRUM
== END 2024-02-14 23:59 | disposition home or self-care (01) ==
LOC: WC 13:30
PROVIDERS: PCP Internal Medicine; Visit Provider Surgery Plastic and Reconstructive Surgery
DX: L89.154 Pressure ulcer of sacral region, stage 4 (principal); L89.324 Pressure ulcer of left buttock, stage 4; Q05.2 Lumbar spina bifida with hydrocephalus; Z99.3 Dependence on wheelchair
CPT/HCPCS: 11043; 11046; 11104; 88305; 97605; 97606

== ENCOUNTER → 2024-03-12 | Outpatient (CLI) | payer MEDICARE, MEDICAID, SELFPAY ==
[2024-03-12 16:44] LABS: Absolute Lymphocyte Count 2.06 X10^3/uL (0.83-4.51); Absolute Neutrophil Count 7.3 X10^3/uL (2.0-7.7); Basophil# 0.05 X10^3/uL; Basophil% 0.5 % (0-1); Eosinophil# 0.25 X10^3/uL; Eosinophils% 2.5 % (0-5); Hematocrit 34.5 % (40-54); Hemoglobin 9.1 g/dL (13.0-16.5); Lymphocyte # 2.06 X10^3/ul (0.83-4.51); Lymphocyte % 20.2 % (19-41); Mean Corp Hgb Conc 26.4 g/dL (32-36); Mean Corpuscular Hgb 17.8 pg (27.0-32.0); Mean Corpuscular Volume 67.4 fL (80-94); Mean Platelet Vol. 9.6 fl (6.2-12.0); Monocyte# 0.47 X10^3/uL; Monocyte% 4.6 % (0-10); NRBC Flagged by Analyzer 0 % (0-5); Neutrophil % 71.6 % (47-70); POSITIVE COUNT YES; Platelet Count 400 K/mm3 (150-450); RBC Distribution Width SD 44.5 fl (35.1-43.9); Red Blood Count 5.12 M/mm3 (4.6-6.2); White Blood Count 10.2 K/mm3 (4.4-11.0)
[2024-03-12 16:55] LABS: Platelet Count 392 K/mm3 (150-450); RET-HE 17.3 pg (30-35)
[2024-03-12 17:03] LABS: ALB/GLOB Ratio 0.6 RATIO (0.9-2.4); AST(SGOT) 16 U/L (15-37); Alanine Aminotransfer ALT/SGPT 14 U/L (16-61); Albumin, Serum 2.6 g/dL (3.2-5.0); Alkaline Phosphatase 107 U/L (45-117); Anion Gap 7 (5-15); BUN 11 mg/dL (7-18); BUN/Creat Ratio 15.9 RATIO (10-20); Calcium,Total 8.8 mg/dL (8.5-10.1); Chloride 112 mmol/L (98-107); Creatinine, Serum 0.69 mg/dL (0.70-1.30); EST Glomerular Filtration Rate 142 mL/min (>60); Est Glom Filt Rate - Afr Amer 172 mL/min (>60); Globulin 4.6 g/dL (2.2-4.2); Glucose 103 mg/dL (74-106); Potassium 3.9 mmol/L (3.5-5.1); Protein, Total 7.2 g/dL (6.4-8.2); Sodium Level 138 mmol/L (136-145)
[2024-03-12 17:17] LABS: Ferritin 22 ng/mL (26-388); Iron 16 ug/dL (65-175); Iron Binding Capacity,Total 326 ug/dL (250-450)
[2024-03-12 17:25] LABS: Differential Indicated SCAN CRITERIA MET
[2024-03-12 17:34] LABS: Differential Comment SEE COMMENTS; Platelet Estimate ADEQUATE (ADEQ)
[2024-03-12 17:35] LABS: Anisocytosis 2+; Microcytosis 2+; Ovalocyte RARE; Platelet Morphology LARGE; Red Cell Morphology N CHROM NORMAL (NORM C&C)
[2024-03-15 12:58] LABS: Pathologist Review Reviewed
== END | disposition home or self-care (01) ==
LOC: BIMLAB 15:32
PROVIDERS: PCP Internal Medicine; Referring Provider Physician Assistant; Visit Provider Physician Assistant
DX: Z78.9 Other specified health status (principal); Q05.2 Lumbar spina bifida with hydrocephalus; D50.9 Iron deficiency anemia, unspecified
CPT/HCPCS: 80053; 82728; 83540; 83550; 85025; 85045

== ENCOUNTER 2024-04-12 14:45 | Outpatient (RCR) | payer MEDICARE, MEDICAID, SELFPAY ==
[2024-03-26 08:08] VITALS: BP 109/48; PULSE 104; RESP 18; TEMP 36.2; BMI 23.7
[2024-03-29 14:19] VITALS: BP 106/62; PULSE 96; RESP 16; TEMP 36.9; BMI 23.7
--- NOTE | 2024-03-29 18:06 | PN.SURG_ITS ---
Subjective Subjective History of Wound: 27 year old man with a history of Spina bifida presented to the Wound Center with a recurrent left sacral pressure sore that started a couple of months ago according to the patient. He bumped his buttocks sometime during the summer and did not tell his mother until it was infected and draining. He initially went to [facility] in April,, and was hospitalized 3 days for IV antibiotics with Meropenem and Clindamycin. Also received a dose of Vancomycin in the ED and had a skin rash. CT showed a rim- enhancing perirectal fluid collection measuring 3.9 x 6.2 cm, compatible with an abscess. He was transferred to [facility] where an I&D was perfo rmed. He has a history of Spina bifida which he has had bilateral hip surgery for hip dysplasia at age 8 and another surgery on legs bilaterally to help him wear braces to stand, which he never has been able to do. He had a sacral muscle flap at age 14 at [facility] for an ulcer. Also has a history of hydrocephalous with a shunt. Surgery 07/16/22 - Excision recurrent left sacral pressure sore, Stage IV, with partial ostectomy for osteomyelitis. Wound Care - [facility]. Operative tissue and bone cultures from 07/16/22 were positive for Enterobacter cloacae complex. He was treated with Levaquin. Pathology from 07/16/22 showed chronic reparative and reactive change. No evidence of acute osteomyelitis. Recent wound culture from 05/27/23 showed MDR Acinetobacter baumannii, Enterococcus faecalis, and Methicillin resistant Staphylococcus haemolyticus. Infectious Diseases has been consulted to assist with antibiotic management (PO vs IV). Prealbumin from 07/17/22 was 14.6. Encourage nutritional supplementation with protein to help the healing process. CT Abdomen/Pelvis from 01/29/23 - There is sclerosis of the underlying sacrum suggestive of possible chronic osteomyelitis. There is superior migration of the proximal left femur. There is deformity of the proximal left femur with the old fracture of the left femoral head. Today denies fever. His appetite is ok. Progress of Wound: 09 February 2024: Patient here for follow-up. He is here with his mother, who is his primary caregiver. Latonya was a patient of a previous member of our practice , Dr. Arechiga , who performed an excision of the patient's sacral pressure ulcer in June 2022. The patient has been doing wound care ever since at the wound care center. They are currently using the wound VAC. They have had some granulation tissue at the base of the wound but there is been limited progress overall. Latonya and his mother are frustrated and would like to potentially change the wound care as the VAC is leaking often. The patient has diverting ostomy, but there is still some mucus that comes from the anus that sometimes causes it to leak. Of note he was treated for osteomyelitis in the past from positive bone cultures, but the wound has not been biopsied. He also has a history of a pressure sore reconstruction during adolescence at [facility] which his mother reports went quite well. 24 FEB 2024: Patient presents today for evaluation of his wound with his mother present. She reports that there struggling to do wound care at home as they are living in a trailer (just the two of them) with limited resources. I talked her extensively about reconstruction today and I talked to him extensively about reconstruction and the process postoperatively. They had a reconstruction when he was an adolescent of a sacral wound that was successful at [facility] with what looks like a V to Y advancement flap and another V-Y (examined previous scars). He has an ostomy. His anus does make a small amount of mucus, but they are able to keep this of the wound pretty well. 01 Mar 2024: Labs reviewed with the patient. The patient has not seen his primary care physician in a while and she is on maternity leave. He is a patient of [facility] and is seeing Dakota Davila next week. I will talk to Dakota Davila personally in the meantime about my concerns about Latonya's labs, including his nutrition and his MCV (which was 66). His hemoglobin was 9.5 and I am concerned about a iron deficiency anemia. I think before reconstruction we need to address this. Latonya is also meeting with the food and nutrition teacher today to discuss increased protein intake. His albumin is 2.8 based on last week's labs and his prealbumin is 16. 30 Feb 2024: Doing alright today. No new problems. Patient here today with his mother comes all of his appointment. I talked to them about their appointment with Dakota Davila, who is the primary care provider. They met with him and he is continuing the iron supplementation for the anemia and working with him on his diet to improve his overall protein intake, and decrease added sugar intake. CURRENT ENCOUNTER, 29 Mar 2024: Here today for evaluation of wound. I've been talking to Dakota Davila (PA at internal medicine practice) about the patient's anemia. They're continuing to treat with iron. We will plan for repeat labs. Objective Data Objective Data Vital Signs: Vital Signs Temp Pulse Resp BP O2 Del Method 98.5 F 96 16 106/62 Room Air 03/29/24 14:19 03/29/24 14:19 03/29/24 14:19 03/29/24 14:19 03/29/24 14:19 Oxygen Delivery Method Room Air Weight: 175 lb Body Mass Index (BMI) 23.7
--- NOTE | 2024-03-29 18:11 | PCM.WC.PN ---
History of Present Illness Date of Service: 03/29/24 Chief Complaint: Recurrent left sacral pressure sore, Stage IV. History of Wound: History of Wound: 27 year old man with a history of Spina bifida presented to the Wound Center with a recurrent left sacral pressure sore that started a couple of months ago according to the patient. He bumped his buttocks sometime during the summer and did not tell his mother until it was infected and draining. He initially went to [facility] in April,, and was hospitalized 3 days for IV antibiotics with Meropenem and Clindamycin. Also received a dose of Vancomycin in the ED and had a skin rash. CT showed a rim-enhancing perirectal fluid collection measuring 3.9 x 6.2 cm, compatible with an abscess. He was transferred to [facility] where an I&D was performed. He has a history of Spina bifida which he has had bilateral hip surgery for hip dysplasia at age 8 and another surgery on legs bilaterally to help him wear braces to stand, which he never has been able to do. He had a sacral muscle flap at age 14 at [facility] for an ulcer. Also has a history of hydrocephalous with a shunt. Surgery 07/16/22 - Excision recurrent left sacral pressure sore, Stage IV, with partial ostectomy for osteomyelitis. Wound Care - [facility]. Operative tissue and bone cultures from 07/16/22 were positive for Enterobacter cloacae complex. He was treated with Levaquin. Pathology from 07/16/22 showed chronic reparative and reactive change. No evidence of acute osteomyelitis. Recent wound culture from 05/27/23 showed MDR Acinetobacter baumannii, Enterococcus faecalis, and Methicillin resistant Staphylococcus haemolyticus. Infectious Diseases has been consulted to assist with antibiotic management (PO vs IV). Prealbumin from 07/17/22 was 14.6. Encourage nutritional supplementation with protein to help the healing process. CT Abdomen/Pelvis from 01/29/23 - There is sclerosis of the underlying sacrum suggestive of possible chronic osteomyelitis. There is superior migration of the proximal left femur. There is deformity of the proximal left femur with the old fracture of the left femoral head. Today denies fever. His appetite is ok. Progress of Wound: 09 February 2024: Patient here for follow-up. He is here with his mother, who is his primary caregiver. Latonya was a patient of a previous member of our practice , Dr. Arechiga , who performed an excision of the patient's sacral pressure ulcer in June 2022. The patient has been doing wound care ever since at the wound care center. They are currently using the wound VAC. They have had some granulation tissue at the base of the wound but there is been limited progress overall. Latonya and his mother are frustrated and would like to potentially change the wound care as the VAC is leaking often. The patient has diverting ostomy, but there is still some mucus that comes from the anus that sometimes causes it to leak. Of note he was treated for osteomyelitis in the past from positive bone cultures, but the wound has not been biopsied. He also has a history of a pressure sore reconstruction during adolescence at [facility] which his mother reports went quite well. 24 FEB 2024: Patient presents today for evaluation of his wound with his mother present. She reports that there struggling to do wound care at home as they are living in a trailer (just the two of them) with limited resources. I talked her extensively about reconstruction today and I talked to him extensively about reconstruction and the process postoperatively. They had a reconstruction when he was an adolescent of a sacral wound that was successful at [facility] with what looks like a V to Y advancement flap and another V-Y (examined previous scars). He has an ostomy. His anus does make a small amount of mucus, but they are able to keep this of the wound pretty well. 01 Mar 2024: Labs reviewed with the patient. The patient has not seen his primary care physician in a while and she is on maternity leave. He is a patient of [facility] and is seeing Dakota Davila next week. I will talk to Dakota Davila personally in the meantime about my concerns about Latonya's labs, including his nutrition and his MCV (which was 66). His hemoglobin was 9.5 and I am concerned about a iron deficiency anemia. I think before reconstruction we need to address this. Latonya is also meeting with the nutrition assistant today to discuss increased protein intake. His albumin is 2.8 based on last week's labs and his prealbumin is 16. 30 Feb 2024: Doing alright today. No new problems. Patient here today with his mother comes all of his appointment. I talked to them about their appointment with Dakota Davila, who is the primary care provider. They met with him and he is continuing the iron supplementation for the anemia and working with him on his diet to improve his overall protein intake, and decrease added sugar intake. CURRENT ENCOUNTER, 29 Mar 2024: Here today for evaluation of wound. I've been talking to Dakota Davila (PA at internal medicine practice) about the patient's anemia. They're continuing to treat with iron. We will plan for repeat labs now in preparation for surgery. Patient has been compliant with medications and compliant with offloading per patient and mother's report. Objective Data Objective Data Vital Signs: Vital Signs Temp Pulse Resp BP O2 Del Method 98.5 F 96 16 106/62 Room Air 03/29/24 14:19 03/29/24 14:19 03/29/24 14:19 03/29/24 14:19 03/29/24 14:19 Oxygen Delivery Method Room Air Weight: 175 lb Body Mass Index (BMI) 23.7 Charges/Coding Procedures Integumentary 111xxx-113xx: 32775 Camelia musc/fascia 20 sq cm/< Add On Codes: 10195 Camelia musc/fascia add-on (x2) Physical Exam Narrative Large sacral wound with exposed muscle fascia at the base, no areas of exposed bone now granulating well, 9 x 6 cm and 4 cm deep with 5 cm of undermining around the edges circumferentially. No fluid collections. The wound does not go into or connect with the anus. There is some granulation tissue over the bone. There are some scars from previous potential rotation flaps/V to Y advancement The edges of the wound are slightly red and scaly, warranting a biopsy. 09 February 2024: 9 Feb 2024: Wound on 15 Mar 2024: Resp normal respiratory effort Cardio regular rate GI GI Narrative: Ostomy present and is working Neuro Neuro Narrative: Unable to move the lower extremities No spasms in the lower extremity and I am able to get his legs nearly straight, but there are some contractures at the knees (30 to 40 degree contractures). Debridement Note Debridement Note Wound debrided: sacrum Laterality: Not Applicable Type of Debridement: Excisional debridement Anesthesia Used: 4% Lidocaine Solution Depth: to muscle Percentage of wound debrided: 100 Instrument Used: 7mm curette Severity: Necrosis of Muscle Amount of bleeding with debridement: Moderate Bleeding Controlled with: Compression and gauze Patient tolerated procedure: Patient tolerated procedure well Post-Debridement Measurements and Additional Note: Post-Debridement Measurements/Treatment - Nurse 1 - General Ulcer Assessment Start: 03/29/24 14:19 Freq: Status: Active Protocol: ANDREW Activity Type Activity Date Activity User E-sign Co-sign Detail Recorded Client Recorded Date Recorded By Document 03/29/24 14:19 [facility] [id number] 03/29/24 14:29 [facility] 03/29/24 14:19 WC - Today's Visit Information Type of service Follow-up Visit (Physician/REHABILITATION ATTENDANT ) Arrival Mode Wheelchair Transfer Assistance Other Transfer Assist (Other) 1 Accompanied by mom Height and Weight Body Mass Index (BMI) 23.7 BMI Classification Normal Vital Signs Temperature (97.8 F-99.1 F) 98.5 F Temperature Source Temporal Pulse Rate (60-100) 96 Pulse Location Monitor Respiratory Rate (12-18) 16 Respiratory rate source Observation Oxygen Delivery Method Room Air Blood Pressure (90/60-120/80) 106/62 Blood Pressure Mean (mm Hg) 76 Source Monitor Position Sitting Blood Pressure Location Left Arm History Since Last Visit- (Skip if this is Patient's initial visit) Have you changed medications since your No last visit? Any new allergies or adverse reactions No Had a fall/change in ADL's that may No increase risk of falls Signs or symptoms of abuse and/or No neglect since last visit Have you been in the hospital since your No last visit? Has dressing in place as prescribed Yes Has compression in place as prescribed N/A Has offloadiing in place as prescribed N/A Experienced any changes in pain level or No management Left Footwear Regular Shoe Right Footwear Regular Shoe Pain Scale: 0-10 Numeric Is Patient Pain Free? Yes - Nurse 1 - General Ulcer Measurement Start: 03/29/24 14:19 Freq: Status: Active Protocol: Activity Type Activity Date Activity User E-sign Co-sign Detail Recorded Client Recorded Date Recorded By Document 03/29/24 14:19 [facility] [id number] 03/29/24 14:29 [facility] 03/29/24 14:19 Wound Center Nurse 1 #1 sacrum -Combined with other wound No -Current Size (cm) - Length 10.1 -Current Size (cm) - Width 2.5 -Current Size (cm) - Depth 1 -Total Square Cm 25.25 -Date of Last Picture (Recall this 03/29/24 field) -Photo Taken Yes -Epithelialization Small 1-33% -Tunneling No -Undermining/Tunneling Yes -Undermining/Tunneling Starts (O'clock 7 ) -Undermining/Tunneling Ends (O'clock) 3 -Maximum Distance (cm) 4.2 -Exudate Amt Large -Exudate Type Yellow/Green -Wound Margin Thickened & Rolled Under -Granulation Amt Large (67-100%) -Granulation Quality Warner,Red -Slough/Fibrin No -Necrosis Amt None Present (0 %) -Texture (Meliza-wound Skin Appearance) Assessed, Scarring -Moisture (Meliza-wound Skin Appearance) Assessed -Color (Meliza-wound Skin Appearance) Assessed -Temperature (Meliza-wound Skin No Abnormality Appearance) (Pt Warm) -Tenderness on Palpation (Meliza-wound No Skin Appearance) -Ulcer Cleansing Soap and Water -Foul Odor after Cleansing No -Anesthetic Used 4% Lidocaine Solution WC - Nurse 2 - General Ulcer CM Notes Start: 03/29/24 14:19 Freq: Status: Active Protocol: Activity Type Activity Date Activity User E-sign Co-sign Detail Recorded Client Recorded Date Recorded By Document 03/29/24 14:31 [facility] [id number] 03/29/24 14:41 [facility] 03/29/24 14:31 Wound Center Nurse 2 -Time 14:31 -Correct Patient Yes -Correct Side, Site, Position Yes -Correct Procedure Yes -Procedure Performed Yes -Type of Procedure Debridement -Clinical Debridement Muscle / Fascia -Tissue Removed Muscle,Fascia -Post Debridement (cm) - Length 6 -Post Debridement (cm) - Width 9 -Post Debridement (cm) - Depth 4 -Total Square (Post) (cm) 54 -Area of Debridement (cm) - Length 6 -Area of Debridement (cm) - Width 9 -Total Square (Area) (cm) 54 -Wound/Ulcer Outcome Not Healed -Ulcer Cleansing Rinsed/ Irrigated with Saline -Foul Odor after Cleansing No -Bioengineered Tissue No -Bleeding Controlled with Pressure -Treatment Response Procedure Tolerated Well -Debridement - Muscle / Fascia, 1st Yes 20sq cm -Debridement, Muscle/Fascia, ea addt'l 2 20sq cm or part thereof Pain Scale: 0-10 Numeric Is Patient Pain Free? Yes WC - Nurse 3 - General Ulcer D/C NN Start: 03/29/24 14:19 Freq: Status: Active Protocol: Activity Type Activity Date Activity User E-sign Co-sign Detail Recorded Client Recorded Date Recorded By Document 03/29/24 14:51 [facility] [id number] 03/29/24 14:51 [facility] 03/29/24 14:51 Wound Care Center Nurse 3 #1 sacrum -Ulcer Cleansing Soap and Water -Foul Odor after Cleansing No -Primary Dressing Applied Hysept ($) -Other Dressing dakins moist kerlix -Primary Dressing Covered/Secured with Secured with Tape -Other Covering abd Treatment Response Procedure Tolerated Well Pain Scale: 0-10 Numeric Is Patient Pain Free? Yes WC - Visit Discharge Discharge Condition Stable Ambulatory Status Wheelchair Transportation Private Auto Accompanied by mom Assessment/Plan Assessment/Plan (1) Decubitus ulcer of sacral area: CODE(S): L89.159 - Pressure ulcer of sacral region, unspecified stage QUALIFIERS: Pressure injury stage: stage 4 Qualified Code(s): L89.154 - Pressure ulcer of sacral region, stage 4 PLAN: Plan We talked extensively today about pressure offloading and not being able to sit in a wheelchair, as well as expectations for postoperative admission and rehabilitation with pressure offloading (no sitting must lay on side or prone for several weeks postoperatively). They endorsed understanding. Plan for the visit today was to meet with the nutrition assistant today in the wound care center clinic as a multidisciplinary effort to prepare him for surgery. I have ordered preoperative nutrition labs including A1c, prealbumin , CBC and CMP. I talked the patient and his mother extensively about the risks of surgery, including bleeding, infection, damage to surrounding structures, surgical site dehiscence and wound formation, need for wound care, need for repeat operations, failure to obtain the desired result, DVT/PE (unlikely given that he has been chronically immobilized, but possible), and the risks of anesthesia including . All of their questions were answered, and they agreed to proceed with surgery. I talked to them about the potential for making a larger wound if he is not healing well. I talked to them about wound dehiscence extensively and how sometimes you take a larger wound and make it into a smaller wound. I talked him about the risks of underlying infection causing wound dehiscence and breakdown and the need for biopsies and possible treatment for several weeks with IV antibiotics. We will discuss these things again at the next appointment and review the nutrition labs and see how he is doing with his diet. Given that they are in agreement with the pressure offloading and postoperative protocol, I think he is a flap candidate. I will likely plan to use previous flaps as they appear to be viable, and just readvanced them over the wound. Continue current wound care regiment with Dakin's wet-to-dry twice daily and pressure offloading. Plan from 01 March 2024: I again discussed the above surgical risks and plans with the patient and his mother, but also discussed the need for evaluation from primary care doctor for iron deficiency anemia and increased protein intake. I am happy that he saw the electrical engineering intern today and he will work on those things to increase his overall nutrition status in anticipation for flap. Follow-up in 1 week. Continue Dakin's wet-to-dry and pressure offloading 15 Mar 2024: Patient recently got a CT scan which demonstrated some osteomyelitis at the wound base. I am ordering an MRI to see the extent of the osteomyelitis for surgical planning. I think it is appropriate at this point since he has been medically optimized to perform an initial debridement with bone cultures followed by irrigating wound VAC and hospital admission for pressure offloading, and potential flap closure thereafter once wound is clean and proper antibiotics/ID consultation has been initiated. I went over the above risks and benefits again with the patient and his mother and they would like to proceed. They understand that he will likely be admitted and go to rehab afterwards. I talked to them extensively about the pressure offloading protocol and eventual sitting protocol. He understands that if he has poor positioning then the flaps will dehisce and fail and he may have a larger wound. CPT codes for insurance prior authorization are as follows: 56692, 22174 x 2, 83303 (adjacent tissue transfer 30 to 60 cm ^2), 86521 (each additional 30 cm ^2). Plan from 29 Mar 2024: Follow-up MRI. Patient will need records from [facility] to find out what kind of FISHER[employer] DIRECTOR shunt was placed so that he can get MRI here. We are working on getting these records. In the meantime continue Dakin's wet-to-dry wound care. Also will follow-up with internal medicine team on anemia and follow-up labs. Will be good to check patient's nutrition with the nutrition labs since intervention with nutrition therapist.
--- NOTE | 2024-03-30 08:57 | WC ---
PHOTO 03/29/24 [facility]
--- NOTE | 2024-03-30 08:57 | WC ---
PHOTO 03/29/24 [facility]
--- NOTE | 2024-03-30 08:58 | WC ---
PHOTO 03/29/24 [facility]
--- NOTE | 2024-04-12 17:17 | PN.PCM_ITS ---
History of Present Illness Date of Service: 04/12/24 Chief Complaint: Recurrent left sacral pressure sore, Stage IV. History of Wound: History of Wound: 27 year old man with a history of Spina bifida presented to the Wound Center with a recurrent left sacral pressure sore that started a couple of months ago according to the patient. He bumped his buttocks sometime during the summer and did not tell his mother until it was infected and draining. He initially went to [facility] in April,, and was hospitalized 3 days for IV antibiotics with Meropenem and Clindamycin. Also received a dose of Vancomycin in the ED and had a skin rash. CT showed a rim-enhancing perirectal fluid collection measuring 3.9 x 6.2 cm, compatible with an abscess. He was transferred to [facility] where an I&D was performed. He has a history of Spina bifida which he has had bilateral hip surgery for hip dysplasia at age 8 and another surgery on legs bilaterally to help him wear braces to stand, which he never has been able to do. He had a sacral muscle flap at age 14 at [facility] for an ulcer. Also has a history of hydrocephalous with a shunt. Surgery 07/16/22 - Excision recurrent left sacral pressure sore, Stage IV, with partial ostectomy for osteomyelitis. Wound Care - [facility]. Operative tissue and bone cultures from 07/16/22 were positive for Enterobacter cloacae complex. He was treated with Levaquin. Pathology from 07/16/22 showed chronic reparative and reactive change. No evidence of acute osteomyelitis. Recent wound culture from 05/27/23 showed MDR Acinetobacter baumannii, Enterococcus faecalis, and Methicillin resistant Staphylococcus haemolyticus. Infectious Diseases has been consulted to assist with antibiotic management (PO vs IV). Prealbumin from 07/17/22 was 14.6. Encourage nutritional supplementation with protein to help the healing process. CT Abdomen/Pelvis from 01/29/23 - There is sclerosis of the underlying sacrum suggestive of possible chronic osteomyelitis. There is superior migration of the proximal left femur. There is deformity of the proximal left femur with the old fracture of the left femoral head. Today denies fever. His appetite is ok. Progress of Wound: 09 February 2024: Patient here for follow-up. He is here with his mother, who is his primary caregiver. Latonya was a patient of a previous member of our practice , Dr. Arechiga , who performed an excision of the patient's sacral pressure ulcer in June 2022. The patient has been doing wound care ever since at the wound care center. They are currently using the wound VAC. They have had some granulation tissue at the base of the wound but there is been limited progress overall. Latonya and his mother are frustrated and would like to potentially change the wound care as the VAC is leaking often. The patient has diverting ostomy, but there is still some mucus that comes from the anus that sometimes causes it to leak. Of note he was treated for osteomyelitis in the past from positive bone cultures, but the wound has not been biopsied. He also has a history of a pressure sore reconstruction during adolescence at [facility] which his mother reports went quite well. 24 FEB 2024: Patient presents today for evaluation of his wound with his mother present. She reports that there struggling to do wound care at home as they are living in a trailer (just the two of them) with limited resources. I talked her extensively about reconstruction today and I talked to him extensively about reconstruction and the process postoperatively. They had a reconstruction when he was an adolescent of a sacral wound that was successful at [facility] with what looks like a V to Y advancement flap and another V-Y (examined previous scars). He has an ostomy. His anus does make a small amount of mucus, but they are able to keep this of the wound pretty well. 01 Mar 2024: Labs reviewed with the patient. The patient has not seen his primary care physician in a while and she is on maternity leave. He is a patient of [facility] and is seeing Dakota Davila next week. I will talk to Dakota Davila personally in the meantime about my concerns about Latonya's labs, including his nutrition and his MCV (which was 66). His hemoglobin was 9.5 and I am concerned about a iron deficiency anemia. I think before reconstruction we need to address this. Latonya is also meeting with the client relationship consultant today to discuss increased protein intake. His albumin is 2.8 based on last week's labs and his prealbumin is 16. 30 Feb 2024: Doing alright today. No new problems. Patient here today with his mother comes all of his appointment. I talked to them about their appointment with Dakota Davila, who is the primary care provider. They met with him and he is continuing the iron supplementation for the anemia and working with him on his diet to improve his overall protein intake, and decrease added sugar intake. 29 Mar 2024: Here today for evaluation of wound. I've been talking to Dakota Davila (PA at internal medicine practice) about the patient's anemia. They're continuing to treat with iron. We will plan for repeat labs now in preparation for surgery. Patient has been compliant with medications and compliant with offloading per patient and mother's report. CURRENT ENCOUNTER, 12 Apr 2024: Doing well overall with dressing changes. We are working on coordinating the MRI for pre-operative planning. Objective Data Objective Data Vital Signs: Vital Signs Temp Pulse Resp BP O2 Del Method 98.5 F 96 16 106/62 Room Air 03/29/24 14:19 03/29/24 14:19 03/29/24 14:19 03/29/24 14:19 03/29/24 14:19 Oxygen Delivery Method Room Air Weight: 175 lb Body Mass Index (BMI) 23.7 Charges/Coding Procedures Integumentary 111xxx-113xx: 74896 Cmaelia bone 20 sq cm/< Add On Codes: 70749 Camelia bone add-on (x 2 units ) Physical Exam Narrative Large sacral wound with exposed muscle fascia at the base,small area of exposed bone now that is granulating. 10 x 6 cm and 4 cm deep with 5 cm of undermining around the edges circumferentially. No fluid collections. The wound does not go into or connect with the anus. There is some granulation tissue over the bone. There are some scars from previous potential rotation flaps/V to Y advancement The edges of the wound are slightly red and scaly, warranting a biopsy. 09 February 2024: 9 Feb 2024: Wound on 15 Mar 2024: Resp normal respiratory effort Cardio regular rate GI GI Narrative: Ostomy present and is working Neuro Neuro Narrative: Unable to move the lower extremities No spasms in the lower extremity and I am able to get his legs nearly straight, but there are some contractures at the knees (30 to 40 degree contractures). Debridement Note Debridement Note Wound debrided: Sacral wound Laterality: Not Applicable Wound Grade/Stage: Satge 4 Type of Debridement: Excisional debridement Anesthesia Used: 4% Lidocaine Solution Depth: to bone Percentage of wound debrided: 100 Instrument Used: 7mm curette Severity: Necrosis of Bone Amount of bleeding with debridement: Moderate Bleeding Controlled with: Pressure Patient tolerated procedure: Patient tolerated procedure well Post-Debridement Measurements and Additional Note: Post-Debridement Measurements/Treatment - Nurse 1 - General Ulcer Assessment Start: 03/29/24 14:19 Freq: Status: Active Protocol: ANDREW Activity Type Activity Date Activity User E-sign Co-sign Detail Recorded Client Recorded Date Recorded By Document 03/29/24 14:19 [facility] [id number] 03/29/24 14:29 [facility] 03/29/24 14:19 WC - Today's Visit Information Type of service Follow-up Visit (Physician/HOUSEKEEPER AND LAUNDRY ASSISTANT ) Arrival Mode Wheelchair Transfer Assistance Other Transfer Assist (Other) 1 Accompanied by mom Height and Weight Body Mass Index (BMI) 23.7 BMI Classification Normal Vital Signs Temperature (97.8 F-99.1 F) 98.5 F Temperature Source Temporal Pulse Rate (60-100) 96 Pulse Location Monitor Respiratory Rate (12-18) 16 Respiratory rate source Observation Oxygen Delivery Method Room Air Blood Pressure (90/60-120/80) 106/62 Blood Pressure Mean (mm Hg) 76 Source Monitor Position Sitting Blood Pressure Location Left Arm History Since Last Visit- (Skip if this is Patient's initial visit) Have you changed medications since your No last visit? Any new allergies or adverse reactions No Had a fall/change in ADL's that may No increase risk of falls Signs or symptoms of abuse and/or No neglect since last visit Have you been in the hospital since your No last visit? Has dressing in place as prescribed Yes Has compression in place as prescribed N/A Has offloadiing in place as prescribed N/A Experienced any changes in pain level or No management Left Footwear Regular Shoe Right Footwear Regular Shoe Pain Scale: 0-10 Numeric Is Patient Pain Free? Yes - Nurse 1 - General Ulcer Measurement Start: 03/29/24 14:19 Freq: Status: Active Protocol: Activity Type Activity Date Activity User E-sign Co-sign Detail Recorded Client Recorded Date Recorded By Document 03/29/24 14:19 [facility] [id number] 03/29/24 14:29 [facility] 03/29/24 14:19 Wound Center Nurse 1 #1 sacrum -Combined with other wound No -Current Size (cm) - Length 10.1 -Current Size (cm) - Width 2.5 -Current Size (cm) - Depth 1 -Total Square Cm 25.25 -Date of Last Picture (Recall this 03/29/24 field) -Photo Taken Yes -Epithelialization Small 1-33% -Tunneling No -Undermining/Tunneling Yes -Undermining/Tunneling Starts (O'clock 7 ) -Undermining/Tunneling Ends (O'clock) 3 -Maximum Distance (cm) 4.2 -Exudate Amt Large -Exudate Type Yellow/Green -Wound Margin Thickened & Rolled Under -Granulation Amt Large (67-100%) -Granulation Quality [place],Red -Slough/Fibrin No -Necrosis Amt None Present (0 %) -Texture (Mleiza-wound Skin Appearance) Assessed, Scarring -Moisture (Meliza-wound Skin Appearance) Assessed -Color (Meliza-wound Skin Appearance) Assessed -Temperature (Meliza-wound Skin No Abnormality Appearance) (Pt Warm) -Tenderness on Palpation (Meliza-wound No Skin Appearance) -Ulcer Cleansing Soap and Water -Foul Odor after Cleansing No -Anesthetic Used 4% Lidocaine Solution WC - Nurse 2 - General Ulcer CM Notes Start: 03/29/24 14:19 Freq: Status: Active Protocol: Activity Type Activity Date Activity User E-sign Co-sign Detail Recorded Client Recorded Date Recorded By Document 03/29/24 14:31 [facility] [id number] 03/29/24 14:41 [facility] Document 04/12/24 15:22 [id number] 04/12/24 15:27 03/29/24 04/12/24 14:31 15:22 Wound Center Nurse 2 #1 sacrum -Time 14:31 15:23 -Correct Patient Yes Yes -Correct Side, Site, Position Yes Yes -Correct Procedure Yes Yes -Procedure Performed Yes Yes -Type of Procedure Debridement Debridement -Clinical Debridement Muscle / Fascia Bone -Tissue Removed Muscle,Fascia Non-viable tissue -Post Debridement (cm) - Length 6 6 -Post Debridement (cm) - Width 9 10 -Post Debridement (cm) - Depth 4 4.0 -Total Square (Post) (cm) 54 60 -Area of Debridement (cm) - Length 6 6 -Area of Debridement (cm) - Width 9 10 -Total Square (Area) (cm) 54 60 -Tunneling No -Undermining/Tunneling No -Circular Undermining No -Wound/Ulcer Outcome Not Healed Not Healed -Ulcer Cleansing Rinsed/ Rinsed/ Irrigated with Irrigated with Saline Saline -Foul Odor after Cleansing No No -Bioengineered Tissue No No -Bleeding Controlled with Pressure Pressure -Treatment Response Procedure Procedure Tolerated Well Tolerated Well -Offloading No -Pressure Reduction Wheelchair cushion -Debridement - Muscle / Fascia, 1st Yes 20sq cm -Debridement, Muscle/Fascia, ea addt'l 2 20sq cm or part thereof -Debridement - Bone, 1st 20sq cm Yes -Debridement, Bone, ea addt'l 20sq cm 2 or part thereof Pain Scale: 0-10 Numeric Is Patient Pain Free? Yes Yes - Nurse 3 - General Ulcer D/C NN Start: 03/29/24 14:19 Freq: Status: Active Protocol: Activity Type Activity Date Activity User E-sign Co-sign Detail Recorded Client Recorded Date Recorded By Document 03/29/24 14:51 BM[facility] [id number] 03/29/24 14:51 BM[facility] Document 04/12/24 15:44 [facility] [id number] 04/12/24 15:45 BMF Edit Result 04/12/24 15:44 BMF (1) [id number] 04/12/24 15:49 BMF (1) #1 sacrum - Primary Dressing Applied => Mepilex Border - Other Covering abd; drsg per kw => trial w/ sacral anthropology department chair => border drsg. - Mepilex Border => 1 03/29/24 04/12/24 14:51 15:44 Wound Care Center Nurse 3 #1 sacrum -Ulcer Cleansing Soap and Water Rinsed/ Irrigated with Saline -Foul Odor after Cleansing No No -Primary Dressing Applied Hysept ($) Mepilex Border -Other Dressing dakins moist dakins moist kerlix gauze -Primary Dressing Covered/Secured with Secured with Secured with Tape Tape -Other Covering abd trial w/ sacral border drsg. -Mepilex Border 1 Treatment Response Procedure Procedure Tolerated Well Tolerated Well Pain Scale: 0-10 Numeric Is Patient Pain Free? Yes Yes - Visit Discharge Discharge Condition Stable Stable Ambulatory Status Wheelchair Wheelchair Transportation Private Auto Private Auto Accompanied by mom mom Assessment/Plan Assessment/Plan (1) Decubitus ulcer of sacral area: CODE(S): L89.159 - Pressure ulcer of sacral region, unspecified stage QUALIFIERS: Pressure injury stage: stage 4 Qualified Code(s): L 89.154 - Pressure ulcer of sacral region, stage 4 PLAN: Plan We talked extensively today about pressure offloading and not being able to sit in a wheelchair, as well as expectations for postoperative admission and rehabilitation with pressure offloading (no sitting must lay on side or prone for several weeks postoperatively). They endorsed understanding. I have ordered preoperative nutrition labs including A1c, prealbumin , CBC and CMP to be repeated (He has been on a high protein diet for 5 weeks since the albumin was 2.6). He is following nutrition team recommendations. I talked the patient and his mother extensively about the risks of surgery, including bleeding, infection, damage to surrounding structures, surgical site dehiscence and wound formation, need for wound care, need for repeat operations, failure to obtain the desired result, DVT/PE (unlikely given that he has been chronically immobilized, but possible), and the risks of anesthesia including . All of their questions were answered, and they agreed to proceed with surgery. I talked to them about the potential for making a larger wound if he is not healing well. I talked to them about wound dehiscence extensively and how sometimes you take a larger wound and make it into a smaller wound. I talked him about the risks of underlying infection causing wound dehiscence and breakdown and the need for biopsies and possible treatment for several weeks with IV antibiotics. We will discuss these things again at the next appointment and review the nutrition labs and see how he is doing with his diet. Given that they are in agreement with the pressure offloading and postoperative protocol, I think he is a flap candidate. I will likely plan to use previous flaps as they appear to be viable, and just readvanced them over the wound. Continue current wound care regiment with Dakin's wet-to-dry twice daily and pressure offloading. Plan from 01 March 2024: I again discussed the above surgical risks and plans with the patient and his mother, but also discussed the need for evaluation from primary care doctor for iron deficiency anemia and increased protein intake. I am happy that he saw the leaf tinner today and he will work on those things to increase his overall nutrition status in anticipation for flap. Follow-up in 1 week. Continue Dakin's wet-to-dry and pressure offloading Plan from 15 Mar 2024: Patient recently got a CT scan which demonstrated some osteomyelitis at the wound base. I am ordering an MRI to see the extent of the osteomyelitis for surgical planning. I think it is appropriate at this point since he has been medically optimized to perform an initial debridement with bone cultures followed by irrigating wound VAC and hospital admission for pressure offloading, and potential flap closure thereafter once wound is clean and proper antibiotics/ID consultation has been initiated. I went over the above risks and benefits again with the patient and his mother and they would like to proceed. They understand that he will likely be admitted and go to rehab afterwards. I talked to them extensively about the pressure offloading protocol and eventual sitting protocol. He understands that if he has poor positioning then the flaps will dehisce and fail and he may have a larger wound. CPT codes for insurance prior authorization are as follows: 69436, 34834 x 2, 36247 (adjacent tissue transfer 30 to 60 cm ^2), 33846 (each additional 30 cm ^2). Plan from 29 Mar 2024: Follow-up MRI. Patient will need records from [facility] to find out what kind of TRANSACTIONAL ATTORNEY shunt was placed so that he can get MRI here. We are working on getting these records. In the meantime continue Cary's wet-to-dry wound care. Also will follow-up with internal medicine team on anemia and follow-up labs. Will be good to check patient's nutrition with the nutrition labs since intervention with nutrition therapist. Plan from 12 Apr 2024: F/u MRI. Scheduling for surgery (debridement, followed by irrigating VAC, followed by flap closure). F/u nutrition labs.
--- NOTE | 2024-04-13 08:40 | WC ---
PHOTO 04/12/24 LEFT BUTTOCK
--- NOTE | 2024-04-13 08:42 | WC ---
PHOTO 04/12/24 LEFT BUTTOCKS
== END 2024-04-15 23:59 | disposition home or self-care (01) ==
LOC: WC 14:45
PROVIDERS: PCP Internal Medicine; Referring Provider Surgery Plastic and Reconstructive Surgery; Visit Provider Surgery Plastic and Reconstructive Surgery
DX: L89.154 Pressure ulcer of sacral region, stage 4 (principal); D64.9 Anemia, unspecified
CPT/HCPCS: 11043; 11044; 11046; 11047

== ENCOUNTER 2024-05-03 14:11 | Outpatient (RCR) | payer MEDICARE, MEDICAID, SELFPAY ==
[2024-04-16 00:52] VITALS: BP 109/48; PULSE 104; RESP 18; TEMP 36.2; BMI 23.7
[2024-05-03 14:34] VITALS: BP 110/65; PULSE 94; RESP 16; TEMP 36.2; BMI 23.7
--- NOTE | 2024-05-03 16:15 | RAD_ITS ---
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 No destructive or sclerotic abnormality observed. SOFT TISSUES: No soft tissue swelling or gas. There is a right-sided shunt catheter. No metallic density is appreciated. SINUSES: No acute abnormality. RAD/Skull less than 4 Views IMPRESSION: Right-sided shunt catheter. No metallic density is seen. Patient is cleared for MRI. Electronically Signed: Darshan Manzanares DO at 23:09 EST ,
--- NOTE | 2024-05-03 18:19 | PN.PCM_ITS ---
History of Present Illness Date of Service: 05/03/24 Chief Complaint: Recurrent left sacral pressure sore, Stage IV. History of Wound: History of Wound: 27 year old man with a history of Spina bifida presented to the Wound Center with a recurrent left sacral pressure sore that started a couple of months ago according to the patient. He bumped his buttocks sometime during the summer and did not tell his mother until it was infected and draining. He initially went to [facility] in April,, and was hospitalized 3 days for IV antibiotics with Meropenem and Clindamycin. Also received a dose of Vancomycin in the ED and had a skin rash. CT showed a rim-enhancing perirectal fluid collection measuring 3.9 x 6.2 cm, compatible with an abscess. He was transferred to [facility] where an I&D was performed. He has a history of Spina bifida which he has had bilateral hip surgery for hip dysplasia at age 8 and another surgery on legs bilaterally to help him wear braces to stand, which he never has been able to do. He had a sacral muscle flap at age 14 at [facility] for an ulcer. Also has a history of hydrocephalous with a shunt. Surgery 07/16/22 - Excision recurrent left sacral pressure sore, Stage IV, with partial ostectomy for osteomyelitis. Wound Care - [facility]. Operative tissue and bone cultures from 07/16/22 were positive for Enterobacter cloacae complex. He was treated with Levaquin. Pathology from 07/16/22 showed chronic reparative and reactive change. No evidence of acute osteomyelitis. Recent wound culture from 05/27/23 showed MDR Acinetobacter baumannii, Enterococcus faecalis, and Methicillin resistant Staphylococcus haemolyticus. Infectious Diseases has been consulted to assist with antibiotic management (PO vs IV). Prealbumin from 07/17/22 was 14.6. Encourage nutritional supplementation with protein to help the healing process. CT Abdomen/Pelvis from 01/29/23 - There is sclerosis of the underlying sacrum suggestive of possible chronic osteomyelitis. There is superior migration of the proximal left femur. There is deformity of the proximal left femur with the old fracture of the left femoral head. Today denies fever. His appetite is ok. Progress of Wound: 09 February 2024: Patient here for follow-up. He is here with his mother, who is his primary caregiver. Latonya was a patient of a previous member of our practice , Dr. Arechiga , who performed an excision of the patient's sacral pressure ulcer in June 2022. The patient has been doing wound care ever since at the wound care center. They are currently using the wound VAC. They have had some granulation tissue at the base of the wound but there is been limited progress overall. Latonya and his mother are frustrated and would like to potentially change the wound care as the VAC is leaking often. The patient has diverting ostomy, but there is still some mucus that comes from the anus that sometimes causes it to leak. Of note he was treated for osteomyelitis in the past from positive bone cultures, but the wound has not been biopsied. He also has a history of a pressure sore reconstruction during adolescence at [facility] which his mother reports went quite well. 24 FEB 2024: Patient presents today for evaluation of his wound with his mother present. She reports that there struggling to do wound care at home as they are living in a trailer (just the two of them) with limited resources. I talked her extensively about reconstruction today and I talked to him extensively about reconstruction and the process postoperatively. They had a reconstruction when he was an adolescent of a sacral wound that was successful at [facility] with what looks like a V to Y advancement flap and another V-Y (examined previous scars). He has an ostomy. His anus does make a small amount of mucus, but they are able to keep this of the wound pretty well. 01 Mar 2024: Labs reviewed with the patient. The patient has not seen his primary care physician in a while and she is on maternity leave. He is a patient of [facility] and is seeing Dakota Davila next week. I will talk to Dakota Davila personally in the meantime about my concerns about Latonya's labs, including his nutrition and his MCV (which was 66). His hemoglobin was 9.5 and I am concerned about a iron deficiency anemia. I think before reconstruction we need to address this. Latonya is also meeting with the documentum consultant today to discuss increased protein intake. His albumin is 2.8 based on last week's labs and his prealbumin is 16. 30 Feb 2024: Doing alright today. No new problems. Patient here today with his mother comes all of his appointment. I talked to them about their appointment with Dakota Davila, who is the primary care provider. They met with him and he is continuing the iron supplementation for the anemia and working with him on his diet to improve his overall protein intake, and decrease added sugar intake. 29 Mar 2024: Here today for evaluation of wound. I've been talking to Dakota Davila (PA at internal medicine practice) about the patient's anemia. They're continuing to treat with iron. We will plan for repeat labs now in preparation for surgery. Patient has been compliant with medications and compliant with offloading per patient and mother's report. 12 Apr 2024: Doing well overall with dressing changes. We are working on coordinating the MRI for pre-operative planning. Subjective Subjective CURRENT ENCOUNTER, 03 May 2024: Doing dressing changes. Has a head xray ordered to look at Shunt, then plan is for MRI for surgical planning. Objective Data Objective Data Vital Signs: Vital Signs Temp Pulse Resp BP O2 Del Method 97.2 F L 94 16 110/65 Room Air 05/03/24 14:34 05/03/24 14:34 05/03/24 14:34 05/03/24 14:34 05/03/24 14:34 Oxygen Delivery Method Room Air Weight: 175 lb Body Mass Index (BMI) 23.7 Charges/Coding Procedures Integumentary 111xxx-113xx: [id number] Camelia bone 20 sq cm/< Add On Codes: 43205 Camelia bone add-on (2) Physical Exam Narrative Large sacral wound with exposed muscle fascia at the base, with a persistent central/superior area of exposed bone. Wound measures 10 x 6 cm and 3 cm deep. No fluid collections. The wound does not go into or connect with the anus. There is some granulation tissue over the bone. There are some scars from previous potential rotation flaps/V to Y advancement 09 February 2024: 23 Feb 2024: Wound on 15 Mar 2024: Resp normal respiratory effort Cardio regular rate GI GI Narrative: Ostomy present and is working Neuro Neuro Narrative: Unable to move the lower extremities No spasms in the lower extremity and I am able to get his legs nearly straight, but there are some contractures at the knees (30 to 40 degree contractures). Debridement Note Debridement Note Wound debrided: Sacral wound Laterality: Not Applicable Wound Grade/Stage: Stage 4 Type of Debridement: Excisional debridement Anesthesia Used: 4% Lidocaine Solution Depth: to bone Percentage of wound debrided: 100 Instrument Used: 7mm curette Severity: Necrosis of Bone Amount of bleeding with debridement: Moderate Bleeding Controlled with: Pressure Patient tolerated procedure: Patient tolerated procedure well Post-Debridement Measurements and Additional Note: Post-Debridement Measurements/Treatment - Nurse 1 - General Ulcer Assessment Start: 05/03/24 14:18 Freq: Status: Active Protocol: ANDREW Activity Type Activity Date Activity User E-sign Co-sign Detail Recorded Client Recorded Date Recorded By Document 05/03/24 14:34 [facility] [id number] 05/03/24 14:42 [facility] 05/03/24 14:34 WC - Today's Visit Information Type of service Follow-up Visit (Physician/FUNERAL LOCATION MANAGER ) Arrival Mode Wheelchair Transfer Assistance Other Transfer Assist (Other) standby Accompanied by mom Patient Identification Verified (Name & Yes ) Patient Requires Transmission-Based No Precautions Height and Weight Body Mass Index (BMI) 23.7 BMI Classification Normal Vital Signs Temperature (97.8 F-99.1 F) 97.2 F L Temperature Source Temporal Pulse Rate (60-100) 94 Pulse Location Monitor Respiratory Rate (12-18) 16 Respiratory rate source Observation Oxygen Delivery Method Room Air Blood Pressure (90/60-120/80) 110/65 Blood Pressure Mean (mm Hg) 80 Source Monitor Position Sitting Blood Pressure Location Left Forearm History Since Last Visit- (Skip if this is Patient's initial visit) Have you changed medications since your No last visit? Any new allergies or adverse reactions No Had a fall/change in ADL's that may No increase risk of falls Signs or symptoms of abuse and/or No neglect since last visit Have you been in the hospital since your No last visit? Has dressing in place as prescribed Yes Has compression in place as prescribed N/A Has offloadiing in place as prescribed N/A Experienced any changes in pain level or No management Left Footwear Regular Shoe Right Footwear Regular Shoe Pain Scale: 0-10 Numeric Is Patient Pain Free? Yes - Nurse 1 - General Ulcer Measurement Start: 05/03/24 14:18 Freq: Status: Active Protocol: Activity Type Activity Date Activity User E-sign Co-sign Detail Recorded Client Recorded Date Recorded By Document 05/03/24 14:34 [facility] [id number] 05/03/24 14:42 [facility] 05/03/24 14:34 Wound Center Nurse 1 #1 sacrum -Combined with other wound No -Current Size (cm) - Length 9 -Current Size (cm) - Width 3.9 -Current Size (cm) - Depth 1.5 -Total Square Cm 35.1 -Tunneling No -Undermining/Tunneling Yes -Undermining/Tunneling Starts (O'clock 7 ) -Undermining/Tunneling Ends (O'clock) 4 -Maximum Distance (cm) 5.7 -Circular Undermining No -Exudate Amt Large -Exudate Type Yellow/Green -Wound Margin Distinct, Outline Attached -Granulation Amt Large (67-100%) -Granulation Quality Pale,Red -Slough/Fibrin No -Necrosis Amt None Present (0 %) -Texture (Meliza-wound Skin Appearance) Assessed -Moisture (Meliza-wound Skin Appearance) Assessed -Color (Meliza-wound Skin Appearance) Assessed -Temperature (Meliza-wound Skin No Abnormality Appearance) (Pt Warm) -Tenderness on Palpation (Meliza-wound No Skin Appearance) -Ulcer Cleansing Soap and Water -Foul Odor after Cleansing No -Anesthetic Used 4% Lidocaine Solution WC - Nurse 2 - General Ulcer CM Notes Start: 05/03/24 14:18 Freq: Status: Active Protocol: Activity Type Activity Date Activity User E-sign Co-sign Detail Recorded Client Recorded Date Recorded By Document 05/03/24 15:42 [facility] [id number] 05/03/24 15:45 [facility] 05/03/24 15:42 Wound Center Nurse 2 -Time 15:43 -Correct Patient Yes -Correct Side, Site, Position Yes -Correct Procedure Yes -Procedure Performed Yes -Type of Procedure Debridement -Clinical Debridement Bone -Tissue Removed Muscle,Fascia, Non-viable tissue -Post Debridement (cm) - Length 6 -Post Debridement (cm) - Width 10 -Post Debridement (cm) - Depth 3.0 -Total Square (Post) (cm) 60 -Area of Debridement (cm) - Length 6 -Area of Debridement (cm) - Width 10 -Total Square (Area) (cm) 60 -Tunneling No -Undermining/Tunneling No -Circular Undermining No -Wound/Ulcer Outcome Not Healed -Ulcer Cleansing Rinsed/ Irrigated with Saline -Foul Odor after Cleansing No -Bioengineered Tissue No -Bleeding Controlled with Pressure -Treatment Response Procedure Tolerated Well -Offloading No -Assistive Device(s) Wheelchair -Debridement - Bone, 1st 20sq cm Yes -Debridement, Bone, ea addt'l 20sq cm 2 or part thereof Pain Scale: 0-10 Numeric Is Patient Pain Free? Yes WC - Nurse 3 - General Ulcer D/C NN Start: 05/03/24 14:18 Freq: Status: Active Protocol: Activity Type Activity Date Activity User E-sign Co-sign Detail Recorded Client Recorded Date Recorded By Document 05/03/24 15:50 ML [id number] 05/03/24 15:51 ML 05/03/24 15:50 Wound Care Center Nurse 3 #1 sacrum -Ulcer Cleansing Rinsed/ Irrigated with Saline -Other Dressing packed with dakins soaked guaze -Primary Dressing Covered/Secured with Dry Gauze, Secured with Tape Pain Scale: 0-10 Numeric Is Patient Pain Free? Yes Assessment/Plan Assessment/Plan (1) Decubitus ulcer of sacral area: CODE(S): L89.159 - Pressure ulcer of sacral region, unspecified stage QUALIFIERS: Pressure injury stage: stage 4 Qualified Code(s): L 89.154 - Pressure ulcer of sacral region, stage 4 PLAN: Plan We talked extensively today about pressure offloading and not being able to sit in a wheelchair, as well as expectations for postoperative admission and rehabilitation with pressure offloading (no sitting must lay on side or prone for several weeks postoperatively). They endorsed understanding. I have ordered preoperative nutrition labs including A1c, prealbumin , CBC and CMP to be repeated (He has been on a high protein diet for 5 weeks since the albumin was 2.6). He is following nutrition team recommendations. I talked the patient and his mother extensively about the risks of surgery, including bleeding, infection, damage to surrounding structures, surgical site dehiscence and wound formation, need for wound care, need for repeat operations, failure to obtain the desired result, DVT/PE (unlikely given that he has been chronically immobilized, but possible), and the risks of anesthesia including . All of their questions were answered, and they agreed to proceed with surgery. I talked to them about the potential for making a larger wound if he is not healing well. I talked to them about wound dehiscence extensively and how sometimes you take a larger wound and make it into a smaller wound. I talked him about the risks of underlying infection causing wound dehiscence and breakdown and the need for biopsies and possible treatment for several weeks with IV antibiotics. We will discuss these things again at the next appointment and review the nutrition labs and see how he is doing with his diet. Given that they are in agreement with the pressure offloading and postoperative protocol, I think he is a flap candidate. I will likely plan to use previous flaps as they appear to be viable, and just readvanced them over the wound. Continue current wound care regiment with Dakin's wet-to-dry twice daily and pressure offloading. Plan from 01 March 2024: I again discussed the above surgical risks and plans with the patient and his mother, but also discussed the need for evaluation from primary care doctor for iron deficiency anemia and increased protein intake. I am happy that he saw the systems checkout mechanic today and he will work on those things to increase his overall nutrition status in anticipation for flap. Follow-up in 1 week. Continue Cary's wet-to-dry and pressure offloading Plan from 15 Mar 2024: Patient recently got a CT scan which demonstrated some osteomyelitis at the wound base. I am ordering an MRI to see the extent of the osteomyelitis for surgical planning. I think it is appropriate at this point since he has been medically optimized to perform an initial debridement with bone cultures followed by irrigating wound VAC and hospital admission for pressure offloading, and potential flap closure thereafter once wound is clean and proper antibiotics/ID consultation has been initiated. I went over the above risks and benefits again with the patient and his mother and they would like to proceed. They understand that he will likely be admitted and go to rehab afterwards. I talked to them extensively about the pressure offloading protocol and eventual sitting protocol. He understands that if he has poor positioning then the flaps will dehisce and fail and he may have a larger wound. CPT codes for insurance prior authorization are as follows: 58241, 85053 x 2, 49328 (adjacent tissue transfer 30 to 60 cm ^2), 62937 (each additional 30 cm ^2). Plan from 29 Mar 2024: Follow-up MRI. Patient will need records from [facility] to find out what kind of TALENT ACQUISITION DIRECTOR shunt was placed so that he can get MRI here. We are working on getting these records. In the meantime continue Cary's wet-to-dry wound care. Also will follow-up with internal medicine team on anemia and follow-up labs. Will be good to check patient's nutrition with the nutrition labs since intervention with nutrition therapist. Plan from 03 May 2024: F/u MRI. Scheduling for surgery (debridement, followed by irrigating VAC, followed by flap closure). F/u nutrition labs.
== END 2024-05-15 23:59 | disposition home or self-care (01) ==
LOC: WC 14:11
PROVIDERS: PCP Internal Medicine; Referring Provider Surgery Plastic and Reconstructive Surgery; Visit Provider Surgery Plastic and Reconstructive Surgery
DX: L89.154 Pressure ulcer of sacral region, stage 4 (principal); D64.9 Anemia, unspecified
CPT/HCPCS: 11044; 11047; 70250

== ENCOUNTER 2024-06-04 14:57 | Outpatient (RCR) | payer MEDICARE, MEDICAID, SELFPAY ==
[2024-05-16 00:52] VITALS: BP 109/48; PULSE 104; RESP 18; TEMP 36.2; BMI 23.7
[2024-05-31 13:09] VITALS: BP 134/75; PULSE 90; RESP 16; TEMP 36.9; BMI 23.7
--- NOTE | 2024-05-31 16:47 | PCM.WC.PN ---
History of Present Illness Date of Service: 05/31/24 Chief Complaint: Recurrent left sacral pressure sore, Stage IV. History of Wound: History of Wound: 27 year old man with a history of Spina bifida presented to the Wound Center with a recurrent left sacral pressure sore that started a couple of months ago according to the patient. He bumped his buttocks sometime during the summer and did not tell his mother until it was infected and draining. He initially went to [facility] in April,, and was hospitalized 3 days for IV antibiotics with Meropenem and Clindamycin. Also received a dose of Vancomycin in the ED and had a skin rash. CT showed a rim-enhancing perirectal fluid collection measuring 3.9 x 6.2 cm, compatible with an abscess. He was transferred to [facility] where an I&D was performed. He has a history of Spina bifida which he has had bilateral hip surgery for hip dysplasia at age 8 and another surgery on legs bilaterally to help him wear braces to stand, which he never has been able to do. He had a sacral muscle flap at age 14 at [facility] for an ulcer. Also has a history of hydrocephalous with a shunt. Surgery 07/16/22 - Excision recurrent left sacral pressure sore, Stage IV, with partial ostectomy for osteomyelitis. [facility] Operative tissue and bone cultures from 07/16/22 were positive for Enterobacter cloacae complex. He was treated with Levaquin. Pathology from 07/16/22 showed chronic reparative and reactive change. No evidence of acute osteomyelitis. Recent wound culture from 05/27/23 showed MDR Acinetobacter baumannii, Enterococcus faecalis, and Methicillin resistant Staphylococcus haemolyticus. Infectious Diseases has been consulted to assist with antibiotic management (PO vs IV). Prealbumin from 07/17/22 was 14.6. Encourage nutritional supplementation with protein to help the healing process. CT Abdomen/Pelvis from 01/29/23 - There is sclerosis of the underlying sacrum suggestive of possible chronic osteomyelitis. There is superior migration of the proximal left femur. There is deformity of the proximal left femur with the old fracture of the left femoral head. Today denies fever. His appetite is ok. Progress of Wound: 09 February 2024: Patient here for follow-up. He is here with his mother, who is his primary caregiver. Latonya was a patient of a previous member of our practice , Dr. Arechiga , who performed an excision of the patient's sacral pressure ulcer in June 2022. The patient has been doing wound care ever since at the wound care center. They are currently using the wound VAC. They have had some granulation tissue at the base of the wound but there is been limited progress overall. Latonya and his mother are frustrated and would like to potentially change the wound care as the VAC is leaking often. The patient has diverting ostomy, but there is still some mucus that comes from the anus that sometimes causes it to leak. Of note he was treated for osteomyelitis in the past from positive bone cultures, but the wound has not been biopsied. He also has a history of a pressure sore reconstruction during adolescence at [facility] which his mother reports went quite well. 24 FEB 2024: Patient presents today for evaluation of his wound with his mother present. She reports that there struggling to do wound care at home as they are living in a trailer (just the two of them) with limited resources. I talked her extensively about reconstruction today and I talked to him extensively about reconstruction and the process postoperatively. They had a reconstruction when he was an adolescent of a sacral wound that was successful at [facility] with what looks like a V to Y advancement flap and another V-Y (examined previous scars). He has an ostomy. His anus does make a small amount of mucus, but they are able to keep this of the wound pretty well. 01 Mar 2024: Labs reviewed with the patient. The patient has not seen his primary care physician in a while and she is on maternity leave. He is a patient of [facility] and is seeing Dakota Davila next week. I will talk to Dakota Davila personally in the meantime about my concerns about Latonya's labs, including his nutrition and his MCV (which was 66). His hemoglobin was 9.5 and I am concerned about a iron deficiency anemia. I think before reconstruction we need to address this. Latonya is also meeting with the strategy execution consultant today to discuss increased protein intake. His albumin is 2.8 based on last week's labs and his prealbumin is 16. 30 Feb 2024: Doing alright today. No new problems. Patient here today with his mother comes all of his appointment. I talked to them about their appointment with Dakota Davila, who is the primary care provider. They met with him and he is continuing the iron supplementation for the anemia and working with him on his diet to improve his overall protein intake, and decrease added sugar intake. 29 Mar 2024: Here today for evaluation of wound. I've been talking to Dakota Davila (PA at internal medicine practice) about the patient's anemia. They're continuing to treat with iron. We will plan for repeat labs now in preparation for surgery. Patient has been compliant with medications and compliant with offloading per patient and mother's report. 12 Apr 2024: Doing well overall with dressing changes. We are working on coordinating the MRI for pre-operative planning. 03 May 2024: Doing dressing changes. Has a head xray ordered to look at Shunt, then plan is for MRI for surgical planning. Subjective Subjective CURRENT ENCOUNTER, 31 May 2024: Compliant with wound care and offloading. Getting MRI later this week and repeat nutrition labs. He has been following closely the recommendations from the nutrition consultation and is looking forward to seeing his new labs as he feels his protein intake has improved greatly. Objective Data Objective Data Vital Signs: Vital Signs Temp Pulse Resp BP O2 Del Method 98.5 F 90 16 134/75 H Room Air 05/31/24 13:09 05/31/24 13:09 05/31/24 13:09 05/31/24 13:09 05/31/24 13:09 Oxygen Delivery Method Room Air Weight: 175 lb Body Mass Index (BMI) 23.7 Charges/Coding Procedures Integumentary 111xxx-113xx: [id number] Camelia musc/fascia 20 sq cm/< Add On Codes: 31175 Camelia musc/fascia add-on (x2 ) Physical Exam Narrative Large sacral wound with exposed muscle fascia at the base, with a persistent central/superior area of exposed bone. Wound measures (again today) 10 x 6 cm and 3 cm deep. No fluid collections. The wound does not go into or connect with the anus. There is some granulation tissue over the bone. There are some scars from previous potential rotation flaps/V to Y advancement 09 February 2024: 9 Feb 2024: Wound on 15 Mar 2024: Resp normal respiratory effort Cardio regular rate GI GI Narrative: Ostomy present and is working Neuro Neuro Narrative: Unable to move the lower extremities No spasms in the lower extremity and I am able to get his legs nearly straight, but there are some contractures at the knees (30 to 40 degree contractures). Debridement Note Debridement Note Wound debrided: Sacral wound Type of Debridement: Excisional debridement Anesthesia Used: 4% Lidocaine Solution Depth: to muscle Percentage of wound debrided: 100 Instrument Used: 5mm curette Severity: Necrosis of Muscle Amount of bleeding with debridement: Mild Bleeding Controlled with: Compression and gauze Patient tolerated procedure: Patient tolerated procedure well Post-Debridement Measurements and Additional Note: Post-Debridement Measurements/Treatment - Nurse 1 - General Ulcer Assessment Start: 05/31/24 13:09 Freq: Status: Active Protocol: [facility]ARISAS[employer] Activity Type Activity Date Activity User E-sign Co-sign Detail Recorded Client Recorded Date Recorded By Document 05/31/24 13:09 [facility] [id number] 05/31/24 13:18 [facility] 05/31/24 13:09 WC - Today's Visit Information Type of service Follow-up Visit (Physician/DESULPHURING OPERATOR ) Arrival Mode Wheelchair Transfer Assistance Other Transfer Assist (Other) standby Accompanied by mom Patient Identification Verified (Name & Yes ) Patient Requires Transmission-Based No Precautions Height and Weight Body Mass Index (BMI) 23.7 BMI Classification Normal Vital Signs Temperature (97.8 F-99.1 F) 98.5 F Temperature Source Temporal Pulse Rate (60-100) 90 Pulse Location Monitor Respiratory Rate (12-18) 16 Respiratory rate source Observation Oxygen Delivery Method Room Air Blood Pressure (90/60-120/80) 134/75 H Blood Pressure Mean (mm Hg) 94 Source Monitor Position Sitting Blood Pressure Location Right Forearm History Since Last Visit- (Skip if this is Patient's initial visit) Have you changed medications since your No last visit? Any new allergies or adverse reactions No Had a fall/change in ADL's that may No increase risk of falls Signs or symptoms of abuse and/or No neglect since last visit Have you been in the hospital since your No last visit? Has dressing in place as prescribed Yes Has compression in place as prescribed N/A Has offloadiing in place as prescribed N/A Experienced any changes in pain level or No management Left Footwear Regular Shoe Right Footwear Regular Shoe Pain Scale: 0-10 Numeric Is Patient Pain Free? Yes - Nurse 1 - General Ulcer Measurement Start: 05/31/24 13:09 Freq: Status: Active Protocol: Activity Type Activity Date Activity User E-sign Co-sign Detail Recorded Client Recorded Date Recorded By Document 05/31/24 13:09 [facility] [id number] 05/31/24 13:18 [facility] 05/31/24 13:09 Wound Center Nurse 1 #1 sacrum -Combined with other wound No -Current Size (cm) - Length 8.7 -Current Size (cm) - Width 2.5 -Current Size (cm) - Depth 2.4 -Total Square Cm 21.75 -Date of Last Picture (Recall this 05/31/24 field) -Photo Taken Yes -Epithelialization Small 1-33% -Tunneling No -Undermining/Tunneling Yes -Undermining/Tunneling Starts (O'clock 12 ) -Undermining/Tunneling Ends (O'clock) 4 -Maximum Distance (cm) 4.6 -Circular Undermining No -Exudate Amt Large -Exudate Type Serosanguineous -Wound Margin Distinct, Outline Attached -Granulation Amt Large (67-100%) -Granulation Quality Red -Slough/Fibrin No -Necrosis Amt None Present (0 %) -Texture (Meliza-wound Skin Appearance) Assessed, Scarring -Moisture (Meliza-wound Skin Appearance) Assessed -Color (Meliza-wound Skin Appearance) Assessed -Temperature (Meliza-wound Skin No Abnormality Appearance) (Pt Warm) -Tenderness on Palpation (Meliza-wound No Skin Appearance) -Ulcer Cleansing Soap and Water -Foul Odor after Cleansing No -Anesthetic Used 4% Lidocaine Solution WC - Nurse 2 - General Ulcer CM Notes Start: 05/31/24 13:09 Freq: Status: Active Protocol: Activity Type Activity Date Activity User E-sign Co-sign Detail Recorded Client Recorded Date Recorded By Document 05/31/24 13:35 [id number] 05/31/24 13:37 05/31/24 13:35 Wound Center Nurse 2 -Time 13:35 -Correct Patient Yes -Correct Side, Site, Position Yes -Correct Procedure Yes -Procedure Performed Yes -Type of Procedure Debridement -Clinical Debridement Muscle / Fascia -Tissue Removed Muscle,Fascia, Non-viable tissue -Post Debridement (cm) - Length 6 -Post Debridement (cm) - Width 10 -Post Debridement (cm) - Depth 3 -Total Square (Post) (cm) 60 -Area of Debridement (cm) - Length 6 -Area of Debridement (cm) - Width 10 -Total Square (Area) (cm) 60 -Tunneling No -Undermining/Tunneling No -Circular Undermining No -Wound/Ulcer Outcome Not Healed -Ulcer Cleansing Rinsed/ Irrigated with Saline -Foul Odor after Cleansing No -Bioengineered Tissue No -Bleeding Controlled with Pressure -Treatment Response Procedure Tolerated Well -Offloading No -Debridement - Muscle / Fascia, 1st Yes 20sq cm -Debridement, Muscle/Fascia, ea addt'l 2 20sq cm or part thereof Pain Scale: 0-10 Numeric Is Patient Pain Free? Yes WC - Nurse 3 - General Ulcer D/C NN Start: 05/31/24 13:09 Freq: Status: Active Protocol: Activity Type Activity Date Activity User E-sign Co-sign Detail Recorded Client Recorded Date Recorded By Document 05/31/24 13:51 [facility] [id number] 05/31/24 13:51 [facility] 05/31/24 13:51 Wound Care Center Nurse 3 #1 sacrum -Ulcer Cleansing Rinsed/ Irrigated with Saline -Foul Odor after Cleansing No -Primary Dressing Applied Hysept ($) -Other Dressing abd -Primary Dressing Covered/Secured with Secured with Tape Treatment Response Procedure Tolerated Well Pain Scale: 0-10 Numeric Is Patient Pain Free? Yes WC - Visit Discharge Discharge Condition Stable Ambulatory Status Wheelchair Transportation Private Auto Accompanied by mom Assessment/Plan Assessment/Plan (1) Decubitus ulcer of sacral area: CODE(S): L89.159 - Pressure ulcer of sacral region, unspecified stage QUALIFIERS: Pressure injury stage: stage 4 Qualified Code(s): L89.154 - Pressure ulcer of sacral region, stage 4 PLAN: Plan We talked extensively today about pressure offloading and not being able to sit in a wheelchair, as well as expectations for postoperative admission and rehabilitation with pressure offloading (no sitting must lay on side or prone for several weeks postoperatively). They endorsed understanding. I have ordered preoperative nutrition labs including A1c, prealbumin , CBC and CMP to be repeated (He has been on a high protein diet for 5 weeks since the albumin was 2.6). He is following nutrition team recommendations. I talked the patient and his mother extensively about the risks of surgery, including bleeding, infection, damage to surrounding structures, surgical site dehiscence and wound formation, need for wound care, need for repeat operations, failure to obtain the desired result, DVT/PE (unlikely given that he has been chronically immobilized, but possible), and the risks of anesthesia including . All of their questions were answered, and they agreed to proceed with surgery. I talked to them about the potential for making a larger wound if he is not healing well. I talked to them about wound dehiscence extensively and how sometimes you take a larger wound and make it into a smaller wound. I talked him about the risks of underlying infection causing wound dehiscence and breakdown and the need for biopsies and possible treatment for several weeks with IV antibiotics. We will discuss these things again at the next appointment and review the nutrition labs and see how he is doing with his diet. Given that they are in agreement with the pressure offloading and postoperative protocol, I think he is a flap candidate. I will likely plan to use previous flaps as they appear to be viable, and just readvanced them over the wound. Continue current wound care regiment with Dakin's wet-to-dry twice daily and pressure offloading. Plan from 01 March 2024: I again discussed the above surgical risks and plans with the patient and his mother, but also discussed the need for evaluation from primary care doctor for iron deficiency anemia and increased protein intake. I am happy that he saw the architectural intern today and he will work on those things to increase his overall nutrition status in anticipation for flap. Follow-up in 1 week. Continue Dakin's wet-to-dry and pressure offloading Plan from 15 Mar 2024: Patient recently got a CT scan which demonstrated some osteomyelitis at the wound base. I am ordering an MRI to see the extent of the osteomyelitis for surgical planning. I think it is appropriate at this point since he has been medically optimized to perform an initial debridement with bone cultures followed by irrigating wound VAC and hospital admission for pressure offloading, and potential flap closure thereafter once wound is clean and proper antibiotics/ID consultation has been initiated. I went over the above risks and benefits again with the patient and his mother and they would like to proceed. They understand that he will likely be admitted and go to rehab afterwards. I talked to them extensively about the pressure offloading protocol and eventual sitting protocol. He understands that if he has poor positioning then the flaps will dehisce and fail and he may have a larger wound. CPT codes for insurance prior authorization are as follows: 85142, 94561 x 2, 56106 (adjacent tissue transfer 30 to 60 cm ^2), 35381 (each additional 30 cm ^2). Plan from 29 Mar 2024: Follow-up MRI. Patient will need records from [facility] to find out what kind of WEBSITE OPTIMIZATION STRATEGIST shunt was placed so that he can get MRI here. We are working on getting these records. In the meantime continue Cary's wet-to-dry wound care. Also will follow-up with internal medicine team on anemia and follow-up labs. Will be good to check patient's nutrition with the nutrition labs since intervention with nutrition therapist. 31 May 2024: F/u MRI. Scheduling for surgery (debridement, followed by irrigating VAC, followed by flap closure). F/u nutrition labs.
--- NOTE | 2024-06-02 13:49 | WC ---
PHOTO 05/31/24 [facility]
--- NOTE | 2024-06-02 13:53 | WC ---
PHOTO 05/31/24 [facility]
--- NOTE | 2024-06-04 13:54 | MRI_ITS ---
STUDY: MR PELVIS WITH T WITHOUT CONTRAST REASON FOR EXAM: Male, 28 years old. OSTEOMYELITIS TECHNIQUE: Standardized fat and water weighted pulse sequences were obtained in all 3 orthogonal planes, pre-and post contrast administration. IV 14 cc clariscan was administered for the contrast portion of the examination. COMPARISON: None. FINDINGS: Severe bladder distention. Normal visualized small intestine. Normal visualized colon. There is no pelvic fluid. There is no pelvic mass lesion or lymphadenopathy. Normal visualized pelvic arteries. Skin thickening and edema of the subcutaneous fat of the medial aspect of the buttocks bilaterally consistent with cellulitis. No loculated fluid collection to suggest abscess. There is a decubitus ulcer that extends anteriorly towards the distal aspect of the sacrum. There are areas of marrow edema within the sacrum particularly within the right sacral ala with contrast enhancement consistent with cortical osteitis. There is destruction and sclerosis of the distal aspect of the sacrum suggestive of chronic osteomyelitis. MRI/Pelvis W/WO Contrast IMPRESSION: Midline sacral decubitus ulcer with suspected chronic osteomyelitis of the distal sacrum and cortical osteitis of the more proximal sacrum particularly the right sacral ala. Electronically Signed: Choco Nayak MD at 10:04 [facility] ,
[2024-06-04 15:31] LABS: Absolute Lymphocyte Count 1.96 X10^3/uL (0.83-4.51); Absolute Neutrophil Count 10.8 X10^3/uL (2.0-7.7); Basophil# 0.08 X10^3/uL; Basophil% 0.6 % (0-1); Eosinophil# 0.25 X10^3/uL; Eosinophils% 1.8 % (0-5); Hematocrit 39.5 % (40-54); Hemoglobin 11.1 g/dL (13.0-16.5); Lymphocyte # 1.96 X10^3/ul (0.83-4.51); Lymphocyte % 14.2 % (19-41); Mean Corp Hgb Conc 28.1 g/dL (32-36); Mean Corpuscular Hgb 18.6 pg (27.0-32.0); Mean Corpuscular Volume 66.3 fL (80-94); Monocyte# 0.74 X10^3/uL; Monocyte% 5.3 % (0-10); NRBC Flagged by Analyzer 0 % (0-5); Neutrophil # 10.75 X10^3/uL (2.7-7.7); Neutrophil % 77.6 % (47-70); Platelet Count 422 K/mm3 (150-450); RBC Distribution Width CV 19.8 % (11.6-14.6); RBC Distribution Width SD 44.1 fl (35.1-43.9); Red Blood Count 5.96 M/mm3 (4.6-6.2); White Blood Count 13.9 K/mm3 (4.4-11.0)
[2024-06-04 16:01] LABS: Hemoglobin A1c 4.8 % (3.8-5.6)
[2024-06-04 16:06] LABS: ALB/GLOB Ratio 0.7 RATIO (0.9-2.4); AST(SGOT) 11 U/L (15-37); Alanine Aminotransfer ALT/SGPT 17 U/L (16-61); Albumin, Serum 3.1 g/dL (3.2-5.0); Alkaline Phosphatase 89 U/L (45-117); Anion Gap 9 (5-15); BUN 17 mg/dL (7-18); BUN/Creat Ratio 28.9 RATIO (10-20); Calcium,Total 9.1 mg/dL (8.5-10.1); Chloride 109 mmol/L (98-107); Creatinine, Serum 0.59 mg/dL (0.70-1.30); EST Glomerular Filtration Rate 171 mL/min (>60); Est Glom Filt Rate - Afr Amer 207 mL/min (>60); Estimated Creatinine Clearance 184.92 ml/min; Globulin 4.2 g/dL (2.2-4.2); Glucose 99 mg/dL (74-106); Potassium 3.3 mmol/L (3.5-5.1); Protein, Total 7.3 g/dL (6.4-8.2); Sodium Level 134 mmol/L (136-145)
[2024-06-06 07:07] LABS: Prealbumin 20 mg/dL (14-35)
== END 2024-06-15 23:59 | disposition home or self-care (01) ==
LOC: WC 14:57
PROVIDERS: PCP Internal Medicine; Referring Provider Surgery Plastic and Reconstructive Surgery; Visit Provider Surgery Plastic and Reconstructive Surgery
DX: L89.154 Pressure ulcer of sacral region, stage 4 (principal); Q05.2 Lumbar spina bifida with hydrocephalus; D64.9 Anemia, unspecified
CPT/HCPCS: 11043; 11046; 36415; 72197; 80053; 83036; 84134; 85025; A9575

== ENCOUNTER 2024-06-28 14:34 | Outpatient (RCR) | payer MEDICARE, MEDICAID, SELFPAY ==
[2024-06-16 00:48] VITALS: BP 109/48; PULSE 104; RESP 18; TEMP 36.2; BMI 23.7
[2024-06-28 15:19] VITALS: BP 121/76; PULSE 103; RESP 18; TEMP 36.9; BMI 23.7
--- NOTE | 2024-06-28 18:03 | PN.PCM_ITS ---
History of Present Illness Date of Service: 06/28/24 Chief Complaint: Recurrent left sacral pressure sore, Stage IV. History of Wound: History of Wound: 27 year old man with a history of Spina bifida presented to the Wound Center with a recurrent left sacral pressure sore that started a couple of months ago according to the patient. He bumped his buttocks sometime during the summer and did not tell his mother until it was infected and draining. He initially went to [facility] in April,, and was hospitalized 3 days for IV antibiotics with Meropenem and Clindamycin. Also received a dose of Vancomycin in the ED and had a skin rash. CT showed a rim-enhancing perirectal fluid collection measuring 3.9 x 6.2 cm, compatible with an abscess. He was transferred to [facility] where an I&D was performed. He has a history of Spina bifida which he has had bilateral hip surgery for hip dysplasia at age 8 and another surgery on legs bilaterally to help him wear braces to stand, which he never has been able to do. He had a sacral muscle flap at age 14 at [facility] for an ulcer. Also has a history of hydrocephalous with a shunt. Surgery 07/16/22 - Excision recurrent left sacral pressure sore, Stage IV, with partial ostectomy for osteomyelitis. Wound Care - [facility]'s. Operative tissue and bone cultures from 07/16/22 were positive for Enterobacter cloacae complex. He was treated with Levaquin. Pathology from 07/16/22 showed chronic reparative and reactive change. No evidence of acute osteomyelitis. Recent wound culture from 05/27/23 showed MDR Acinetobacter baumannii, Enterococcus faecalis, and Methicillin resistant Staphylococcus haemolyticus. Infectious Diseases has been consulted to assist with antibiotic management (PO vs IV). Prealbumin from 07/17/22 was 14.6. Encourage nutritional supplementation with protein to help the healing process. CT Abdomen/Pelvis from 01/29/23 - There is sclerosis of the underlying sacrum suggestive of possible chronic osteomyelitis. There is superior migration of the proximal left femur. There is deformity of the proximal left femur with the old fracture of the left femoral head. Today denies fever. His appetite is ok. Progress of Wound: 09 February 2024: Patient here for follow-up. He is here with his mother, who is his primary caregiver. Latonya was a patient of a previous member of our practice , Dr. Arechiga , who performed an excision of the patient's sacral pressure ulcer in June 2022. The patient has been doing wound care ever since at the wound care center. They are currently using the wound VAC. They have had some granulation tissue at the base of the wound but there is been limited progress overall. Latonya and his mother are frustrated and would like to potentially change the wound care as the VAC is leaking often. The patient has diverting ostomy, but there is still some mucus that comes from the anus that sometimes causes it to leak. Of note he was treated for osteomyelitis in the past from positive bone cultures, but the wound has not been biopsied. He also has a history of a pressure sore reconstruction during adolescence at [facility] which his mother reports went quite well. 24 FEB 2024: Patient presents today for evaluation of his wound with his mother present. She reports that there struggling to do wound care at home as they are living in a trailer (just the two of them) with limited resources. I talked her extensively about reconstruction today and I talked to him extensively about reconstruction and the process postoperatively. They had a reconstruction when he was an adolescent of a sacral wound that was successful at [facility] with what looks like a V to Y advancement flap and another V-Y (examined previous scars). He has an ostomy. His anus does make a small amount of mucus, but they are able to keep this of the wound pretty well. 01 Mar 2024: Labs reviewed with the patient. The patient has not seen his primary care physician in a while and she is on maternity leave. He is a patient of [place] [facility] and is seeing Dakota Davila next week. I will talk to Dakota Davila personally in the meantime about my concerns about Latonya's labs, including his nutrition and his MCV (which was 66). His hemoglobin was 9.5 and I am concerned about a iron deficiency anemia. I think before reconstruction we need to address this. Latonya is also meeting with the livestock nutritionist today to discuss increased protein intake. His albumin is 2.8 based on last week's labs and his prealbumin is 16. 30 Feb 2024: Doing alright today. No new problems. Patient here today with his mother comes all of his appointment. I talked to them about their appointment with Daokta Davila, who is the primary care provider. They met with him and he is continuing the iron supplementation for the anemia and working with him on his diet to improve his overall protein intake, and decrease added sugar intake. 29 Mar 2024: Here today for evaluation of wound. I've been talking to Dakota Davila (PA at internal medicine practice) about the patient's anemia. They're continuing to treat with iron. We will plan for repeat labs now in preparation for surgery. Patient has been compliant with medications and compliant with offloading per patient and mother's report. 12 Apr 2024: Doing well overall with dressing changes. We are working on coordinating the MRI for pre-operative planning. 03 May 2024: Doing dressing changes. Has a head xray ordered to look at Shunt, then plan is for MRI for surgical planning. Subjective Subjective 31 May 2024: Compliant with wound care and offloading. Getting MRI later this week and repeat nutrition labs. He has been following closely the recommendations from the nutrition consultation and is looking forward to seeing his new labs as he feels his protein intake has improved greatly. CURRENT ENCOUNTER, 28 Jun 2024: I have reviewed MRI (had discussion with Dr. Carter, spine surgery, regarding the reactive findings of the upper pelvis/iliac region and no intervention at this time. If concern for osteomyelitis in this area at a later time 2/2 clinical signs/symptoms, they would recommend IR guided biopsy). Discussed patient with primary care and hospitalist team. His Hgb (11) is optimized (although I've referred to [facility] for work up for possible non-iron causes of anemia such as sideroblastic anemias in the setting of low MCV). Patient and mother ready for debridement/reconstruction. He would like to proceed and understands risks of flap failure and the positioning restrictions/long post-operative course of pressure offloading protocol. Objective Data Objective Data Vital Signs: Vital Signs Temp Pulse Resp BP O2 Del Method 98.5 F 103 H 18 121/76 H Room Air 06/28/24 15:19 06/28/24 15:19 06/28/24 15:19 06/28/24 15:19 06/28/24 15:19 Oxygen Delivery Method Room Air Weight: 175 lb Body Mass Index (BMI) 23.7 Charges/Coding Procedures Integumentary 111xxx-113xx: [id number] Camelia musc/fascia 20 sq cm/< Add On Codes: 17565 Camelia musc/fascia add-on (x2 ) Physical Exam Narrative Large sacral wound with exposed muscle fascia at the base, with a persistent central/superior area of exposed bone. Wound measures (again today) 10.2 x 5 cm and 2 cm deep. No fluid collections. The wound does not go into or connect with the anus. T here is granulation tissue over the bone. There are some scars from previous potential rotation flaps/V to Y advancement 09 February 2024: 23 Feb 2024: Wound on 15 Mar 2024: Resp normal respiratory effort Cardio regular rate GI GI Narrative: Ostomy present and is working Neuro Neuro Narrative: Unable to move the lower extremities No spasms in the lower extremity and I am able to get his legs nearly straight, but there are some contractures at the knees (30 to 40 degree contractures). Debridement Note Debridement Note Wound debrided: Sacral wound Laterality: Not Applicable (Central) Wound Grade/Stage: 3 Type of Debridement: Excisional debridement Anesthesia Used: 4% Lidocaine Solution Depth: to muscle Percentage of wound debrided: 100 Instrument Used: 7mm curette Severity: Necrosis of Muscle Amount of bleeding with debridement: Moderate Bleeding Controlled with: Compression and gauze Patient tolerated procedure: Patient tolerated procedure well Post-Debridement Measurements and Additional Note: Post-Debridement Measurements/Treatment - Nurse 1 - General Ulcer Assessment Start: 06/28/24 15:19 Freq: Status: Active Protocol: [email or web address].LOWEXT Activity Type Activity Date Activity User E-sign Co-sign Detail Recorded Client Recorded Date Recorded By Document 06/28/24 15:19 [id number] 06/28/24 15:31 06/28/24 15:19 - Today's Visit Information Type of service Follow-up Visit (Physician/ENAMEL BUFFER ) Arrival Mode Wheelchair Patient Identification Verified (Name & Yes ) Height and Weight Body Mass Index (BMI) 23.7 BMI Classification Normal Vital Signs Temperature (97.8 F-99.1 F) 98.5 F Temperature Source Temporal Pulse Rate (60-100) 103 H Pulse Location Monitor Respiratory Rate (12-18) 18 Respiratory rate source Observation Oxygen Delivery Method Room Air Blood Pressure (90/60-120/80) 121/76 H Blood Pressure Mean (mm Hg) 91 Source Monitor Position Sitting Blood Pressure Location Left Forearm History Since Last Visit- (Skip if this is Patient's initial visit) Have you changed medications since your No last visit? Any new allergies or adverse reactions No Had a fall/change in ADL's that may No increase risk of falls Signs or symptoms of abuse and/or No neglect since last visit Have you been in the hospital since your No last visit? Has dressing in place as prescribed Yes Has compression in place as prescribed N/A Has offloadiing in place as prescribed N/A Experienced any changes in pain level or No management Left Footwear Regular Shoe Right Footwear Regular Shoe Pain Scale: 0-10 Numeric Is Patient Pain Free? Yes - Nurse 1 - General Ulcer Measurement Start: 06/28/24 15:19 Freq: Status: Active Protocol: Activity Type Activity Date Activity User E-sign Co-sign Detail Recorded Client Recorded Date Recorded By Document 06/28/24 15:19 KARLA [id number] 06/28/24 15:31 KARLA 06/28/24 15:19 Wound Center Nurse 1 #1 sacrum -Current Size (cm) - Length 10.2 -Current Size (cm) - Width 5 -Current Size (cm) - Depth 2 -Total Square Cm 51.0 -Date of Last Picture (Recall this 06/28/24 field) -Exudate Amt Large -Exudate Type Yellow/Green -Wound Margin Distinct, Outline Attached -Granulation Amt Large (67-100%) -Granulation Quality Ringoes,Red -Structure Exposed Bone -Texture (Meliza-wound Skin Appearance) Assessed -Moisture (Meliza-wound Skin Appearance) Assessed -Color (Meliza-wound Skin Appearance) Assessed -Temperature (Meliza-wound Skin No Abnormality Appearance) (Pt Warm) -Tenderness on Palpation (Meliza-wound No Skin Appearance) -Ulcer Cleansing Soap and Water -Foul Odor after Cleansing No -Anesthetic Used 4% Lidocaine Solution,5% Lidocaine Gel WC - Nurse 2 - General Ulcer CM Notes Start: 06/28/24 15:19 Freq: Status: Active Protocol: Activity Type Activity Date Activity User E-sign Co-sign Detail Recorded Client Recorded Date Recorded By Document 06/28/24 15:40 BILLY [id number] 06/28/24 15:41 BILLY 06/28/24 15:40 Wound Center Nurse 2 -Time 15:40 -Correct Patient Yes -Correct Side, Site, Position Yes -Correct Procedure Yes -Procedure Performed Yes -Type of Procedure Debridement -Clinical Debridement Muscle / Fascia -Tissue Removed Muscle -Post Debridement (cm) - Length 10.3 -Post Debridement (cm) - Width 5 -Post Debridement (cm) - Depth 2.0 -Total Square (Post) (cm) 51.5 -Area of Debridement (cm) - Length 10.3 -Area of Debridement (cm) - Width 5 -Total Square (Area) (cm) 51.5 -Tunneling No -Undermining/Tunneling No -Circular Undermining No -Wound/Ulcer Outcome Not Healed -Ulcer Cleansing Rinsed/ Irrigated with Saline -Foul Odor after Cleansing No -Bioengineered Tissue No -Bleeding Controlled with Pressure -Treatment Response Procedure Tolerated Well -Offloading No -Debridement - Muscle / Fascia, 1st Yes 20sq cm -Debridement, Muscle/Fascia, ea addt'l 2 20sq cm or part thereof Pain Scale: 0-10 Numeric Is Patient Pain Free? Yes WC - Nurse 3 - General Ulcer D/C NN Start: 06/28/24 15:19 Freq: Status: Active Protocol: Activity Type Activity Date Activity User E-sign Co-sign Detail Recorded Client Recorded Date Recorded By Document 06/28/24 15:47 ML [id number] 06/28/24 15:47 ML 06/28/24 15:47 Wound Care Center Nurse 3 #1 sacrum -Ulcer Cleansing Soap and Water -Other Dressing dakins,abd -Primary Dressing Covered/Secured with Secured with Tape Pain Scale: 0-10 Numeric Is Patient Pain Free? Yes Assessment/Plan Assessment/Plan (1) Decubitus ulcer of sacral area: CODE(S): L89.159 - Pressure ulcer of sacral region, unspecified stage QUALIFIERS: Pressure injury stage: stage 4 Qualified Code(s): L 89.154 - Pressure ulcer of sacral region, stage 4 PLAN: Plan We talked extensively today about pressure offloading and not being able to sit in a wheelchair, as well as expectations for postoperative admission and rehabilitation with pressure offloading (no sitting must lay on side or prone for several weeks postoperatively). They endorsed understanding. I have ordered preoperative nutrition labs including A1c, prealbumin , CBC and CMP to be repeated (He has been on a high protein diet for 5 weeks since the albumin was 2.6). He is following nutrition team recommendations. I talked the patient and his mother extensively about the risks of surgery, including bleeding, infection, damage to surrounding structures, surgical site dehiscence and wound formation, need for wound care, need for repeat operations, failure to obtain the desired result, DVT/PE (unlikely given that he has been chronically immobilized, but possible), and the risks of anesthesia including . All of their questions were answered, and they agreed to proceed with surgery. I talked to them about the potential for making a larger wound if he is not healing well. I talked to them about wound dehiscence extensively and how sometimes you take a larger wound and make it into a smaller wound. I talked him about the risks of underlying infection causing wound dehiscence and breakdown and the need for biopsies and possible treatment for several weeks with IV antibiotics. We will discuss these things again at the next appointment and review the nutrition labs and see how he is doing with his diet. Given that they are in agreement with the pressure offloading and postoperative protocol, I think he is a flap candidate. I will likely plan to use previous flaps as they appear to be viable, and just readvanced them over the wound. Continue current wound care regiment with Dakin's wet-to-dry twice daily and pressure offloading. Plan from 01 March 2024: I again discussed the above surgical risks and plans with the patient and his mother, but also discussed the need for evaluation from primary care doctor for iron deficiency anemia and increased protein intake. I am happy that he saw the family member caretaker today and he will work on those things to increase his overall nutrition status in anticipation for flap. Follow-up in 1 week. Continue Dakin's wet-to-dry and pressure offloading Plan from 15 Mar 2024: Patient recently got a CT scan which demonstrated some osteomyelitis at the wound base. I am ordering an MRI to see the extent of the osteomyelitis for surgical planning. I think it is appropriate at this point since he has been medically optimized to perform an initial debridement with bone cultures followed by irrigating wound VAC and hospital admission for pressure offloading, and potential flap closure thereafter once wound is clean and proper antibiotics/ID consultation has been initiated. I went over the above risks and benefits again with the patient and his mother and they would like to proceed. They understand that he will likely be admitted and go to rehab afterwards. I talked to them extensively about the pressure offloading protocol and eventual sitting protocol. He understands that if he has poor positioning then the flaps will dehisce and fail and he may have a larger wound. CPT codes for insurance prior authorization are as follows: 04187, 74654 x 2, 66783 (adjacent tissue transfer 30 to 60 cm ^2), 35438 (each additional 30 cm ^2). Plan from 29 Mar 2024: Follow-up MRI. Patient will need records from [facility] to find out what kind of SOFTWARE DEVELOPER INTERN shunt was placed so that he can get MRI here. We are working on getting these records. In the meantime continue Cary's wet-to-dry wound care. Also will follow-up with internal medicine team on anemia and follow-up labs. Will be good to check patient's nutrition with the nutrition labs since intervention with nutrition therapist. Plan 31 May 2024: F/u MRI. Scheduling for surgery (debridement, followed by irrigating VAC, followed by flap closure). F/u nutrition labs. Plan from 29 Jun 2024: Patient and mother ready for debridement/reconstruction. He would like to proceed and understands risks of flap failure and the positioning restrictions/long post-operative course of pressure offloading protocol. We talked again today about flap failure, and the risks, benefits, and alternatives to reconstruction.
--- NOTE | 2024-07-02 09:00 | WC ---
PHOTO 06/28/24 SACRUM
== END 2024-07-14 13:05 | disposition home or self-care (01) ==
LOC: WC 14:34
PROVIDERS: PCP Internal Medicine; Referring Provider Surgery Plastic and Reconstructive Surgery; Visit Provider Surgery Plastic and Reconstructive Surgery
DX: L89.154 Pressure ulcer of sacral region, stage 4 (principal); Q05.9 Spina bifida, unspecified; D64.9 Anemia, unspecified
CPT/HCPCS: 11043; 11046

== ENCOUNTER 2024-06-30 09:02 | Inpatient (IN) | payer MEDICARE, MEDICAID, SELFPAY ==
[2024-06-30] VITALS (13 sets, daily range): BP systolic 101–128; BP diastolic 54–103; PULSE 85–112; RESP 16–18; TEMP 36.3–37.3; O2SAT 97–100; BMI 18.3; BMI 18.4
[2024-06-30] MEDS: 0.9% Normal Saline (1000mL) 1,000 ML 15 ML IV (06:10)
--- NOTE | 2024-06-30 06:50 | PCM.PRE.AN2 ---
ASA Classification* ASA Classification ASA Classification: 3 Assessment & Plan Anesthesia* Anesthesia Assessment Anesthesia Assessment: Discussed sedation and/or anesthesia options, risks, benefits, and alternatives with patient/parents/legal guardian/POA. Questions invited. The patient/parents/legal guardian/POA seems to understand and agrees to proceed with anesthesia plan. Reviewed the physical assessment, medical history, allergy history and patient home medications list prior to surgery/procedure/anesthetic and documented any changes. Performed airway and anesthesia risk assessments. Anesthesia Type Anesthesia Type: General Anesthesia Focused Assessment* Temperature: 99.1 F Pulse Rate: 112 Blood Pressure: 115/75 Respiratory Rate: 18 Pulse Ox: 100 Airway Assessment Mouth opens: >3 cm Mallampati Score: II Focused Labs Anesthesia Preop lab: CBC WBC 13.9 K/mm3 (4.4-11.0) H 06/04/24 15:12 RBC 5.96 M/mm3 (4.6-6.2) 06/04/24 15:12 Hgb 11.1 g/dL (13.0-16.5) L 06/04/24 15:12 Hct 39.5 % (40-54) L 06/04/24 15:12 Plt Count 422 K/mm3 (150-450) 06/04/24 15:12 CHEMISTRY Potassium 3.3 mmol/L (3.5-5.1) L 06/04/24 15:12 Sodium 134 mmol/L (136-145) L 06/04/24 15:12 Magnesium 2.0 mg/dL (1.6-2.6) 01/29/23 12:20 BUN 17 mg/dL (7-18) 06/04/24 15:12 Creatinine 0.59 mg/dL (0.70-1.30) L 06/04/24 15:12 Glucose 99 mg/dL (74-106) 06/04/24 15:12 COAG PT 16.8 SECONDS (11.7-14.9) H 01/29/23 12:20 Pre-Assessment Diagnosis/Proposed Procedure Planned Operative Procedure(s): EXCISION SACRAL WOUND WITH FLAP RECONSTRUCTION WITH IRRIGATING WOUND VAC, POSSIBLE DELAY CLOSURE, STAGE 1 Anesthesia History Anesthesia History - director of corporate responsibility: Anesthesia History - director of corporate responsibility Hx Hospitalization No 06/30/24 06:18 Any Problems With Anesthesia No 06/30/24 06:18 Cholinesterase deficiency No 06/30/24 06:18 You/Your Family Experience No 06/30/24 06:18 fever (hyperthermia) with Relationship Recent Exposure to Contagious No 06/30/24 06:26 Disease Does patient have nerve No 06/30/24 06:18 stimulator Patient instructed to have device shut off --Does patient have Pacemaker No 06/30/24 06:26 or ICD? When Was Last Pacemaker Check QUESTION #4 FULL TEXT: You/Your Family Experience fever (hyperthermia) with Anesthesia Last Oral Intake Last Oral intake: Last Oral Intake NPO since 16:30 06/30/24 06:26 Meds taken in AM with sips of No 06/30/24 06:26 water? Meds patient instructed to take am of surgery PONV PONV - director of corporate responsibility: PONV - director of corporate responsibility Female No 06/30/24 06:18 HX of Motion Sickness No 06/30/24 06:18 HX of N/V After Surgery Yes 06/30/24 06:18 Non-Smoker Yes 06/30/24 06:18 Duration of Surgery greater Yes 06/30/24 06:18 than 60 minutes Number of Risk Factors 3 06/30/24 06:18 PONV Score Moderate Risk 06/30/24 06:18 Height & Weight Height & Weight: Anesthesia: Height & Weight Height 6 ft 06/30/24 06:26 Weight: 61.235 kg 06/30/24 06:26 Body Mass Index (BMI) 18.3 06/30/24 06:26 Respiratory Assessment Respiratory Assessment - director of corporate responsibility: Respiratory Tract Infection Hx - director of corporate responsibility Hx Respiratory Tract Infection No 06/30/24 06:18 STOP Sleep Apnea STOP Sleep Apnea - director of corporate responsibility: STOP Sleep Apnea - director of corporate responsibility Hx Hypertension No 06/30/24 06:18 Hx Sleep Apnea No 06/30/24 06:18 CPAP BIPAP Do you snore loudly (louder No 06/30/24 06:18 than talking or can be heard Do you often feel tired/ No 06/30/24 06:18 fatigued/ sleepy during daytime? Has anyone observed you stop No 06/30/24 06:18 breathing during sleep? STOP Results Negative 06/30/24 06:18 QUESTION #5 FULL TEXT : Do you snore loudly (louder than talking or can be heard through closed doors)? Tobacco Use History Tobacco Use History - director of corporate responsibility: Tobacco Use History - director of corporate responsibility Tobacco Use Smoking Status Never smoker 06/30/24 06:18 Hx Tobacco Use No 06/30/24 06:18 Years Smoking Packs Smoked per Day Smoking Cessation Date was within the last 15 years Hx Smoking Cessation Date Hx Smoking Cessation Counseling Hematologic Medial History Hematologic Hx - director of corporate responsibility: Hematologic Medical Hx - computer mechanic Hx of Blood Transfusion No 06/30/24 06:18 Hx of Transfusion in last 3 No 06/30/24 06:18 Months Date of Last Transfusion (if within last 3 months) Ever experience any problems No 06/30/24 06:18 with transfusion(s)? Specify any problems Hx of Preganancy in last 3 N/A 06/30/24 06:18 Months Nurse Filling Out Transfusion [email or web address] 06/30/24 06:18 & Questions: Date: 06/30/24 06/30/24 06:18 Time: 06:24 06/30/24 06:18 Patient unable to answer at this time (ie. confused, unrespo /Reproduction History /Reproductive History - director of corporate responsibility: /Reproductive Hx- director of corporate responsibility Hx Now No 06/30/24 06:18 Gestational Age (in weeks): EDC: Hx Hx Para Hx Section SAB No 08/20/23 08:57 Active Medications Active Medications: Current Medications Generic Name Dose Route Start Last Admin Trade Name Freq PRN Reason Stop Dose Admin Clindamycin Phosphate 900 mg in 50 mls @ 75 mls/hr 06/30/24 07:30 Cleocin IV 06/30/24 08:09 PREOP ONE Sodium Chloride 1,000 mls @ 15 mls/hr 06/30/24 06:00 06/30/24 06:10 IV 07/05/24 19:19 15 mls/hr .Q48H EMMANUEL Administration Protocol PFSH Medical History Open wound Low iron Gastric reflux Methicillin resistant Staphylococcus epidermidis infection Cognitive decline Anxiety Psoriasis Uses wheelchair Kidney stone Seizures Incontinence of bowel Heartburn Non-smoker History of edema Hx of spina bifida Stage IV pressure ulcer of sacral region Congenital hip dysplasia Home Medications ?Medication ?Instructions ?Recorded ?Last Taken ?Type ferrous sulfate 325 mg (65 mg 325 mg PO DAILY@1200 90 days #90 01/31/23 Unknown Rx iron) tablet (FeroSul) tabs levetiracetam 500 mg tablet 500 mg PO BID #60 tabs 03/27/23 06/29/24 03:30 Rx (Keppra) catheter 14 Fr (Bard Coude Tip #120 ea 04/02/23 Unknown Rx Catheter) potassium chloride 20 mEq 40 meq (2 x 20 mEq) PO ONCE #2 tabs 04/02/23 09/22/23 Rx tablet,extended release(part/cryst) Allergy/AdvReac Type Severity Reaction Status Date / Time latex Allergy Hives Verified 06/30/24 06:15 Penicillins Allergy Nausea/Vom/ Verified 06/30/24 06:15 Diarrhea levofloxacin (From Levaquin) AdvReac Mild Nausea/Vom/ Verified 06/30/24 06:15 Diarrhea Family History Other No significant family history Surgical History H/O bilateral hip replacements Colostomy in place Presence of urostomy S/P flap graft Ventricular shunt in place Social History household members: family current occupational status: disabled Smoking Status: Never smoker Electronic Cigarette Use: not used alcohol intake: never substance use type: does not use caffeine: Yes what type of physical activity do you participate in: none seatbelt use: always do you feel safe at home: Yes Review of Systems (Anesthesia) ROS Narrative System reviewed and no additional complaints, except as documented.
--- NOTE | 2024-06-30 07:28 | PCM.HP.STD ---
HPI - General HPI Narrative INESSA ADAMES, is a 28 M who presents for sacral wound debridement . Current Encounter (DATE OF SURGERY H&P UPDATE): I saw and examined the patient this morning in pre-operative holding. We discussed risks and benefits of today's surgery and they would like to proceed. NO CHANGE in health history since last seen and evaluated. Ready to proceed with surgery. [facility] Medical History Open wound Low iron Gastric reflux Methicillin resistant Staphylococcus epidermidis infection Cognitive decline Anxiety Psoriasis Uses wheelchair Kidney stone Seizures Incontinence of bowel Heartburn Non-smoker History of edema Hx of spina bifida Stage IV pressure ulcer of sacral region Congenital hip dysplasia Home Medications ?Medication ?Instructions ?Recorded ?Last Taken ?Type ferrous sulfate 325 mg (65 mg 325 mg PO DAILY@1200 90 days #90 01/31/23 Unknown Rx iron) tablet (FeroSul) tabs levetiracetam 500 mg tablet 500 mg PO BID #60 tabs 03/27/23 06/29/24 03:30 Rx (Keppra) catheter 14 Fr (Bard Coude Tip #120 ea 04/02/23 Unknown Rx Catheter) potassium chloride 20 mEq 40 meq (2 x 20 mEq) PO ONCE #2 tabs 04/02/23 09/22/23 Rx tablet,extended release(part/cryst) Allergy/AdvReac Type Severity Reaction Status Date / Time latex Allergy Hives Verified 06/30/24 06:15 Penicillins Allergy Nausea/Vom/ Verified 06/30/24 06:15 Diarrhea levofloxacin (From Levaquin) AdvReac Mild Nausea/Vom/ Verified 06/30/24 06:15 Diarrhea Family History Other No significant family history Surgical History H/O bilateral hip replacements Colostomy in place Presence of urostomy S/P flap graft Ventricular shunt in place Social History household members: family current occupational status: disabled Smoking Status: Never smoker Electronic Cigarette Use: not used alcohol intake: never substance use type: does not use caffeine: Yes what type of physical activity do you participate in: none seatbelt use: always do you feel safe at home: Yes Vital Signs Vital Signs Vital Signs: 06/30/24 06:26 06/30/24 06:26 06/30/24 06:50 Temperature 99.1 F 99.1 F Temperature Source Temporal Pulse Rate 112 H 112 H Respiratory Rate 18 18 Respiratory Pattern Normal Blood Pressure 115/75 115/75 Blood Pressure Mean 88 Blood Pressure Source Monitor Blood Pressure Position Supine Blood Pressure Location Left Arm Pulse Ox 100 100 Oxygen Delivery Method Room Air Weight Weight: 135 lb Body Mass Index (BMI) 18.3 Physical Exam Narrative Large sacral wound with exposed muscle fascia at the base, with a persistent central/superior area of exposed bone. Wound measures (again today) 10.2 x 5 cm and 2 cm deep. No fluid collections. The wound does not go into or connect with the anus. There is granulation tissue over the bone. There are some scars from previous potential rotation flaps/V to Y advancement 09 February 2024: 23 Feb 2024: Wound on 15 Mar 2024: Resp normal respiratory effort Cardio regular rate GI GI Narrative: Ostomy present and is working Neuro Neuro Narrative: Unable to move the lower extremities No spasms in the lower extremity and I am able to get his legs nearly straight, but there are some contractures at the knees (30 to 40 degree contractures). Assessment & Plan Assessment/Plan (1) Decubitus ulcer of sacral area: QUALIFIERS: Pressure injury stage: stage 4 Qualified Code(s): L89.154 - Pressure ulcer of sacral region, stage 4 PLAN: I talked the patient extensively about the risks of surgery, including bleeding, infection, damage to surrounding structures, surgical site dehiscence and wound formation, need for wound care, need for repeat operations, failure to obtain the desired result, DVT/PE, and the risks of anesthesia including . The benefits and alternatives of this surgery were also discussed. All of their questions were answered, and they agreed to proceed with surgery. INTERVAL H&P PLAN, DATE OF SURGERY: We will proceed with surgery today.
--- NOTE | 2024-06-30 07:30 | BONBX_PTH ---
PATIENT: INESSA ADAMES PETRONA LOC: MS3 U#:[id number] AGE/SX: 28/M ROOM: [facility] RE06/30/[address]: Dr. Myron Rodriguez MD : 1995 BED: 1 DIS: 07/10/2024 SPEC #: [id number] RECD: 06/30/24 10:40 STATUS: ELENO REVladislav #: [id number] JOSE ALFREDO: 06/30/24 07:[address]: Myron Rodriguez DEPT: SURGICAL PATHOLOGY RECD BY: Elle Parry ENTERED: 06/30/24 11:28 SP TYPE: Bone OTHR DR: MD Dr. Jairon Lynch DO Tissues: A - Sacral region B - Sacral region Procedures: Decalcification bone/plaque Surgery Specimen Level IV Surgery Specimen Level V HEADER OPERATION: Excision sacral wound with debridement, irrigating wound vac PRE-OP DIAGNOSIS: Decubitus ulcer of sacral area TISSUE SUBMITTED: A- Bone from sacral wound - rule out osteomyelitis, B- Skin from sacral wound - rule out skin cancer MICROSCOPIC DIAGNOSIS A. Bone from sacrum: Fragments of bone with reactive changes. Negative for acute osteomyelitis. B. Skin from sacral wound, excision: Skin with extensive hyperkeratosis, pseudoepitheliomatous hyperplasia, and granulation tissue reaction. Negative for malignancy. LYNDSEY. 07/02/2024 MICROSCOPIC DESCRIPTION Slides are reviewed. GROSS DESCRIPTION A. Received in fixative is one container labeled with the patient's name and designated Bone from sacral wound. The specimen consists of two fragments of bone measuring in aggregate 0.5 x 0.3 x 0.1cm. B. Received in fixative is one container labeled with the patient's name and designated Skin from sacral wound. The specimen consists of a piece of skin with underlying tissue measuring 1.2 x 1.2 x 0.5cm. The specimen is inked, serially sectioned and submitted entirely in one cassette. LYNDSEY. 06/30/2024 TC:5 CPT:01053n2,10184
[2024-06-30] MEDS: Clindamycin 900 MG/50 ML BAG 75 MG IV (07:54)
[2024-06-30] MEDS: Methylene Blue 1% 100 MG/10 ML VIAL (08:11)
[2024-06-30] MEDS: Bupiv/Epi 0.25% 30 ML Vial (08:15)
--- NOTE | 2024-06-30 09:03 | PCM.POST.ANE ---
Anesthesia: Postop Eval I Current Vital Signs Temperature: 97.3 F Pulse Rate: 98 Blood Pressure: 122/74 Respiratory Rate: 16 Pulse Ox: 100 Oxygen Delivery Method: Nasal Cannula Oxygen Flow Rate (L/min): 3 Assessment Airway patent: Yes Spontaneous unlabored respirations: Yes Mental status: Awake nausea: No Vomiting: No Anesthesia Complication: No Fluid Hydration Crystalloid volume administer (ml): 600 Total IV fluid infused: 600 Progress Note Anesthesia document: Postop Eval 1 completed: Yes
--- NOTE | 2024-06-30 09:07 | OP.PCM_ITS ---
Operative Report (Standard) Operative Information Date of Procedure: 06/30/24 Pre-Operative Diagnosis: Sacral decubitus ulcer Post-Operative Diagnosis: Same Surgery/Procedure Performed: 1) Excision of sacral wound, 10.2 x 5 cm (2 cm deep down to bone), CPT: 02172, 27807 2) Application of irrigating negative pressure wound VAC (not disposable), >50 cm, CPT: 70398 woods overseer: Yes Firer Electric Locomotive: Brett Storey Tasks completed by funeral home assistant: Retracting Type of Anesthesia: General/Supplemental (with 20 cc of 0.25% marcaine with 1:200,000 epinephrine ) RN Documented Start/Stop Times: Operation Date: 06/30/24 07:30 Case Time Into Pre-Op 06/30/24 05:54 Out of Pre-Op 06/30/24 07:35 Anesthesia Start 06/30/24 07:37 Into Room 06/30/24 07:37 Procedure Start 06/30/24 08:11 Procedure End 06/30/24 08:43 Anesthesia End 06/30/24 08:51 Out of Room 06/30/24 08:51 Into Recovery 06/30/24 08:53 Procedure Start Time: 08:11 Procedure Stop Time: 08:43 Select all DRAINS/GRAFTS/IMPLANTS that apply: None Estimated Blood Loss: 25 cc Fluids Replaced: 600 cc LR Specimen collected: Yes Description of specimen(s) removed: Bone biopsy, skin/wound biopsy, bone culture, deep wound culture Description of surgery: Indications: Patient is a 28-year-old male with history of spina bifida and 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 Presents today for debridement in the operating room. He understands risks, benefits, and alternatives to this today's procedure. He and his family (mother) decided to proceed. Procedure Details: Patient was correctly identified in preoperative holding and taken back to the operating room where he was administered general anesthesia and he was placed in the prone position and prepped and draped in sterile fashion. A proper timeout was performed. Care was taken to pad all bony prominences and protect the face. Once the appropriate level of anesthesia was obtained he was anesthetized with 20 cc quarter percent Marcaine with epinephrine around the wound to mitigate bleeding risk. Methylene blue was added to the wound to ensure complete excision of the wound. The wound was then sharply excised with curette and rongeur and scissors down to healthy bleeding tissue which included excision of bone in the sacral region. The entire excision was 10.2 x 5 cm. A bone culture and a deep soft tissue culture was taken with clean rongeur's. A wedge of skin and wound edge was also taken for pathology to rule out malignancy. The sacrum was also sent as a pathologic bone biopsy specimen to check for microscopic findings of osteomyelitis. The wound was then irrigated with 450 cc of Irrisept and copious amounts normal saline. Hemostasis was obtained with Bovie electrocautery and topical 0.25% Marcaine with epinephrine on a clear Telfa. The irrigating wound VAC was then applied and set to 20 cc irrigating every 2 hours. Postoperative plan: Admit to the floor and consult medicine and infectious disease. Anticipate 5 days of irrigating wound VAC as tissue specimens and cultures result. Likely flap reconstruction early next week. In the meantime pressure offloading bed, high-protein diet and nutrition consult. Surgical Findings: Healthy appearing bone at the base of the wound, no clinical signs of osteomyelitis. Complications Complications: No Admit VTE Documentation VTE Present on Admission: No VTE Mechan Device Prophylaxis: SCD's
--- NOTE | 2024-06-30 09:22 | POSTOPAN2_ITS ---
Anesthesia Postop Eval I Sum Postop Eval Completion status Anesthesia document: Postop Eval 1 completed: Yes Anesthesia Postop Eval I Summary Anesthesia Postop Eval I Summary: Anesthesia Postop Eval I: Assessment Summary Airway patent Yes 06/30/24 09:04 CHANGE MANAGEMENT SPECIALIST.[email or web address] Spontaneous unlabored Yes 06/30/24 09:04 CHANGE MANAGEMENT SPECIALIST.RWOO respirations Mental status Awake 06/30/24 09:04 CHANGE MANAGEMENT SPECIALIST.RWOO nausea No 06/30/24 09:04 CHANGE MANAGEMENT SPECIALIST.RWOO Vomiting No 06/30/24 09:04 CHANGE MANAGEMENT SPECIALIST.RWOO Anesthesia Postop Eval I: Fluid Summary Crystalloid volume administer 600 06/30/24 09:04 CHANGE MANAGEMENT SPECIALIST.RWOO (ml) Colloids volume administered ( ml) Blood Product volume administered (ml) Total IV fluid infused 600 06/30/24 09:04 CHANGE MANAGEMENT SPECIALIST.RWOO Anesthesia Postop Eval I: Summary Notes Anesthesia Complication No 06/30/24 09:04 CHANGE MANAGEMENT SPECIALIST.RWOO Anesthesia Complication Comment: Post-operative progress note Anesthesia: Postop Eval II Evaluation Mental status: Awake Pain Level: 0 nausea: No Vomiting: No
--- NOTE | 2024-06-30 09:22 | PCM.POSTANE2 ---
Anesthesia Postop Eval I Sum Postop Eval Completion status Anesthesia document: Postop Eval 1 completed: Yes Anesthesia Postop Eval I Summary Anesthesia Postop Eval I Summary: Anesthesia Postop Eval I: Assessment Summary Airway patent Yes 06/30/24 09:04 VAT [email or web address] Spontaneous unlabored Yes 06/30/24 09:04 VAT [email or web address] respirations Mental status Awake 06/30/24 09:04 VAT [email or web address] nausea No 06/30/24 09:04 VAT [email or web address].[email or web address] Vomiting No 06/30/24 09:04 VAT [email or web address] Anesthesia Postop Eval I: Fluid Summary Crystalloid volume administer 600 06/30/24 09:04 VAT TENDER.RWOO (ml) Colloids volume administered ( ml) Blood Product volume administered (ml) Total IV fluid infused 600 06/30/24 09:04 VAT [email or web address] Anesthesia Postop Eval I: Summary Notes Anesthesia Complication No 06/30/24 09:04 VAT TENDER.[email or web address] Anesthesia Complication Comment: Post-operative progress note Anesthesia: Postop Eval II Evaluation Mental status: Awake Pain Level: 0 nausea: No Vomiting: No
[2024-06-30] MEDS: Sodium Hypochlorite (Dakin's) 0.125% Wound Irrigation IRRIGATION (11:54)
[2024-06-30] MEDS: Ferrous Sulfate 325 MG Tablet PO (14:38)
--- NOTE | 2024-06-30 18:33 | PCM.PN.HOSP ---
Reason for Visit Reason for Visit: Diagnoses Pressure ulcer of sacral region, stage 4 (06/30/24) Subjective Subjective Patient was seen and examined today, he does not appear to be in any distress. Patient underwent excision of his sacral wound today and an application of irrigating negative pressure wound VAC. Objective Data Objective Data Vital Signs: Vital Signs Temp Pulse Resp BP Pulse Ox O2 Del Method O2 Flow Rate 98.4 F 98 16 122/91 H 100 Room Air 3 06/30/24 18:29 06/30/24 18:29 06/30/24 18:29 06/30/24 18:29 06/30/24 18:29 06/30/24 18:29 06/30/24 09:15 Oxygen Flow Rate (L/min) 3 Oxygen Delivery Method Room Air Weight: 61.8 kg Body Mass Index (BMI) 18.4 Intake & Output: Intake and Output for Last 24 Hours 06/28/24 06/29/24 06/30/24 23:59 23:59 23:59 Intake Total 1683.25 / 1683.25 Output Total 400 / 400 Balance 1283.25 / 1283.25 Lab / Micro Data 07/01/24 05:42 07/01/24 05:42 Micro: Microbiology 06/30/24 Unknown Tissue - Sacral Gram Stain - Final 06/30/24 Unknown Bone - Sacral Bone Gram Stain - Final Physical Exam Const alert, oriented x3 and no apparent distress Constitutional Narrative: Patient has cognitive impairment but is able to carry on conversation and answers simple questions appropriately. General Appearance: cooperative, well kempt and well developed Orientation / Consciousness: awake, oriented to person and oriented to place HEENT normocephalic, head/scalp atraumatic and moist oral mucous membranes Eyes PERRL, EOMs intact bilaterally and conjunctivae normal Neck supple, no JVD and thyroid normal General: trachea midline Resp normal respiratory effort, no retractions, no use of accessory muscles and clear to auscultation bilaterally Auscultation: Negative for rales, rhonchi or wheezes Cardio regular rate, regular rhythm, S1 normal heart sound, S2 normal heart sound, no murmurs, no rub and no gallops GI normal to inspection, nondistended, normoactive bowel sounds, soft to palpation, non-tender and non-distended GI Narrative: Patient has a colostomy and urostomy present Extremity no clubbing, cyanosis or edema Skin no rashes or lesions noted General Skin Exam: no breakdown Neuro CN's II-XII intact bilaterally, moves all extremities, no focal motor deficits and no sensory deficits noted Sensorium / Orientation: awake, alert, oriented to person and oriented to place Psych Psych Narrative: Patient has cognitive impairment Assessment & Plan Assessment/Plan (1) Iron deficiency anemia: PLAN: Plan 1. Iron deficiency anemia-labs will be monitored, patient does not require blood transfusion at this time #2 seizure disorder-patient is on Keppra #3 spina bifida-complicates care, management, recovery, and prognosis #4 stage IV pressure injury to the coccyx-patient has a wound VAC, he will need repeat surgery next week Total clinical time spent by myself addressing the patient's medical issues, reviewing all of his data, and collaborating with patient's care team: 50 minutes Charges/Coding Visit Charges Inpatient E&M: 53586 Subs Hosp L3
[2024-06-30] MEDS: levETIRAcetam 500 MG Tablet PO (21:41)
[2024-07-01] VITALS (8 sets, daily range): BP systolic 102–135; BP diastolic 62–83; PULSE 96–108; RESP 15–18; TEMP 36.6–37.6; O2SAT 97–100
[2024-07-01 06:41] LABS: Absolute Lymphocyte Count 1.94 X10^3/uL (0.83-4.51); Absolute Neutrophil Count 5.7 X10^3/uL (2.0-7.7); Basophil# 0.05 X10^3/uL; Basophil% 0.6 % (0-1); Eosinophil# 0.37 X10^3/uL; Eosinophils% 4.3 % (0-5); Hemoglobin 9.6 g/dL (13.0-16.5); Lymphocyte # 1.94 X10^3/ul (0.83-4.51); Lymphocyte % 22.4 % (19-41); Mean Corp Hgb Conc 29.1 g/dL (32-36); Mean Corpuscular Hgb 19.8 pg (27.0-32.0); Mean Corpuscular Volume 67.9 fL (80-94); Mean Platelet Vol. 9.1 fl (6.2-12.0); Monocyte# 0.51 X10^3/uL; Monocyte% 5.9 % (0-10); NRBC Flagged by Analyzer 0 % (0-5); Neutrophil # 5.72 X10^3/uL (2.7-7.7); Neutrophil % 66.1 % (47-70); Platelet Count 393 K/mm3 (150-450); RBC Distribution Width SD 47.5 fl (35.1-43.9); Red Blood Count 4.86 M/mm3 (4.6-6.2); White Blood Count 8.7 K/mm3 (4.4-11.0)
[2024-07-01 07:01] LABS: ALB/GLOB Ratio 0.7 RATIO (0.9-2.4); AST(SGOT) 9 U/L (15-37); Alanine Aminotransfer ALT/SGPT 10 U/L (16-61); Albumin, Serum 2.5 g/dL (3.2-5.0); Alkaline Phosphatase 76 U/L (45-117); Anion Gap 8 (5-15); BUN 16 mg/dL (7-18); BUN/Creat Ratio 27.2 RATIO (10-20); Calcium,Total 8.4 mg/dL (8.5-10.1); Chloride 115 mmol/L (98-107); Creatinine, Serum 0.59 mg/dL (0.70-1.30); EST Glomerular Filtration Rate 171 mL/min (>60); Est Glom Filt Rate - Afr Amer 207 mL/min (>60); Estimated Creatinine Clearance 160.03 ml/min; Globulin 3.5 g/dL (2.2-4.2); Glucose 85 mg/dL (74-106); Potassium 3.7 mmol/L (3.5-5.1); Sodium Level 138 mmol/L (136-145)
[2024-07-01] MEDS: Ensure Plus High Protein 120 ML LIQUID PO ×2 (08:35→12:01)
[2024-07-01] MEDS: levETIRAcetam 500 MG Tablet PO ×2 (10:47→21:39)
[2024-07-01] MEDS: Enoxaparin 40 MG/0.4 ML Syringe SC (10:47)
[2024-07-01] MEDS: Ferrous Sulfate 325 MG Tablet PO (12:01)
--- NOTE | 2024-07-01 13:31 | PN.SURG_ITS ---
Subjective Subjective Postop #1 Patient is sitting up in bed. He states he is having no pain. He does complain of having a lot of gas/bloating and would like something to help with it. Objective Data Objective Data Vital Signs: Vital Signs Temp Pulse Resp BP Pulse Ox O2 Del Method O2 Flow Rate 98.4 F 108 H 16 120/81 H 97 Room Air 3 07/01/24 08:20 07/01/24 12:55 07/01/24 12:55 07/01/24 08:20 07/01/24 08:20 07/01/24 12:55 06/30/24 09:15 Oxygen Flow Rate (L/min) 3 Oxygen Delivery Method Room Air Weight: 136 lb 3.931 oz Body Mass Index (BMI) 18.4 Intake & Output: Intake and Output for Last 24 Hours 06/29/24 06/30/24 07/01/24 23:59 23:59 23:59 Intake Total 1683.25 / 1683.25 840 / 840 Output Total 400 / 400 1600 / 1600 Balance 1283.25 / 1283.25 -760 / -760 Lab / Micro Data Attestation: I reviewed the patient's lab results. 07/01/24 05:42 07/01/24 05:42 Labs: Laboratory Results - last 24 hr 07/01/24 05:42: WBC 8.7, RBC 4.86, Hgb 9.6 L, Hct 33.0 L, MCV 67.9 L, MCH 19.8 L , MCHC 29.1 L, RDW Std Deviation 47.5 H, RDW Coeff of Cathy 20.0 H, Plt Count 393, MPV 9.1, Immature Gran % (Auto) 0.700, Neut % (Auto) 66.1, Lymph % (Auto) 22.4, Collier % (Auto) 5.9, Eos % (Auto) 4.3, Baso % (Auto) 0.6, Absolute Neuts (auto) 5.7, Absolute Lymphs (auto) 1.94, Nucleated RBC % 0, Sodium 138, Potassium 3.7, Chloride 115 H, Carbon Dioxide 15.0 L, Anion Gap 8, BUN 16, Creatinine 0.59 L, Estim Creat Clear Calc 160.03, Est GFR (MDRD) Af Amer 207, Est GFR (MDRD) Non-Af 171, BUN/Creatinine Ratio 27.2 H, Glucose 85, Calcium 8.4 L, Total Bilirubin 0.40, AST 9 L, ALT 10 L, Alkaline Phosphatase 76, Total Protein 6.0 L, Albumin 2.5 L, Globulin 3.5, Albumin/Globulin Ratio 0.7 L Micro: Microbiology 06/30/24 Unknown Tissue - Sacral Gram Stain - Final 06/30/24 Unknown Tissue - Sacral Wound Culture - Preliminary Gram positive organism 06/30/24 Unknown Bone - Sacral Bone Gram Stain - Final 06/30/24 Unknown Bone - Sacral Bone Wound Culture - Preliminary Mixed Ximena Physical Exam Narrative Sacral irrigating wound VAC is in place and is keeping a good seal. No signs of bleeding. Const alert and no apparent distress General Appearance: cooperative Orientation / Consciousness: awake HEENT normocephalic Eyes General Eye: normal appearance of both eyes Neck full ROM Resp normal respiratory effort and normal air movement Effort and Inspection: able to speak in complete sentences Cardio regular rate and regular rhythm Extremity normal capillary refill Neuro oriented x3 Sensorium / Orientation: awake and alert Psych thought process normal and cooperative Assessment & Plan Assessment/Plan (1) Stage IV pressure ulcer of sacral region: PLAN: Plan Patient is doing well. He denies any pain. He states that he has been having a lot of gas/bloating. Will prescribe antacid/simethicone as needed. Irrigating wound VAC in place. Plan to change it tomorrow. Operative cultures pending. Will monitor closely. Discussed patient care with hospitalist, Dr. Koch. They will continue to manage him medically.
--- NOTE | 2024-07-01 14:09 | NURSING ---
vitals taken by student nurse observed by this RN.
--- NOTE | 2024-07-01 14:57 | CHAPLAIN ---
Type of Pastoral Visit _x__ Initial Visit ___ Follow-up Visit ___ On-call Visit ___ General Patient Visit ___ Spiritual Assessment ___ Family Conference ___ Bereavement ___ Rapid Response ___ Code Blue ___ Other (describe below) Pastoral Care Referral From _x__ Patient ___ Family ___ Nurse ___ Physician ___ Asp Net Developer ___ Bridal Stylist Sales Consultant ___ Other (describe below) Sacrament/Intervention _x__ Active listening ___ Anointing ___ Moravian ___ Bereavement ___ Communion _x__ Clementina exploration ___ _x__ Life review _x__ Prayer ___ Reconciliation ___ Sacrament of Sick _x__ Supportive presence ___ Wedding ___ Other (describe below) Pastoral Comments patient is welcoming and immediately begins talking about the [place] that he really liked to go to before 2018 but that my mother won't take me there anymore because she doesn't want to lift the wheelchair; pt talks about what he liked about the [place]; pt acknowledges that he is limited in getting out but that he has animals where he lives that he enjoys; pt acknowledges that he does not read and has trouble with math; pt is asked about how he is handling being in the hospital and he says I'm fine. It gets me away from the house and my mother; pt does a lot of talking about things that interest him; pt says that he is happy to have a prayer spoken after some clarification on his clementina; pt asks that this agent based modeler come back tomorrow to see him again
--- NOTE | 2024-07-01 15:35 | CASEMGMT ---
RAMILA LONG Assessment: Face to Face with pt for initial transition planning/care coordination assessment. RAMILA LONG introduced self and role at [facility], pt voices understanding and consents to assessment. Pt is A&O x4 and answers all questions appropriately at this time. Pt sitting up in bed with father at bedside. Pt agreeable to assessment with father present. Care providers, pharmacy, and demographics verified/updated. Admitting Dx: excision sacral wound with flap reconstruction Strata Score: 1 PCP:Ghulam Specialists:Michael, rafia OR [facility]erred [facility] Prescription Benefit: yes LNOK: Myrna Perez, Mother Living Arrangements: Pt lives with brother and mother in a mobile home with a ramp to enter. Pt reports he is indep with bathing and dressing self and mother provides IADLs. Pt states his mother performs wound care and he straight caths himself. Pt denies concerns at home. Transportation: Pt mother provides transportation for pt. DME:electric w/c, pressure reduction cushion for w/c, air bed at home, shower chair. Pt gets ostomy supplies and straight cath supplies from a [employer] but pt is unsure of the name. HHC/SNF: Denies Pt states no concerns with going home at time of dc. Noted in notes, pt to have irrigating wound vac for 5 days while waiting for cultures. Plan for possible flap reconstruction early next week. ID is consulted. Pt states no further concerns/needs. CM to follow. Advised pt to ask CM if any further questions/concerns/needs arise, voices understanding. Pt Goal: Home Plan: Likely home, TBD pending course of hospitalization Iqra MCGRATH CM
[2024-07-01] MEDS: Mag Hydrox/Al Hydrox/Simeth 30 ML UDC 15 ML PO ×2 (17:13→22:10)
[2024-07-01] MEDS: Acetaminophen 500 MG Tablet 1000 MG PO (17:19)
--- NOTE | 2024-07-01 18:48 | PN.HOSP_ITS ---
Reason for Visit Reason for Visit: Diagnoses Pressure ulcer of sacral region, stage 4 (06/30/24) Subjective Subjective Patient was seen and examined today, he complains of gas pains but otherwise has no complaints. Objective Data Objective Data Vital Signs: Vital Signs Temp Pulse Resp BP Pulse Ox O2 Del Method O2 Flow Rate 98.9 F 98 18 135/83 H 100 Room Air 3 07/01/24 18:16 07/01/24 17:16 07/01/24 17:16 07/01/24 17:16 07/01/24 17:16 07/01/24 17:16 06/30/24 09:15 Oxygen Flow Rate (L/min) 3 Oxygen Delivery Method Room Air Weight: 61.8 kg Body Mass Index (BMI) 18.4 Intake & Output: Intake and Output for Last 24 Hours 06/29/24 06/30/24 07/01/24 23:59 23:59 23:59 Intake Total 1683.25 / 1683.25 840 / 840 Output Total 400 / 400 1600 / 1600 Balance 1283.25 / 1283.25 -760 / -760 Lab / Micro Data 07/01/24 05:42 07/01/24 05:42 Labs: Laboratory Results - last 24 hr 07/01/24 05:42: WBC 8.7, RBC 4.86, Hgb 9.6 L, Hct 33.0 L, MCV 67.9 L, MCH 19.8 L , MCHC 29.1 L, RDW Std Deviation 47.5 H, RDW Coeff of Cathy 20.0 H, Plt Count 393, MPV 9.1, Immature Gran % (Auto) 0.700, Neut % (Auto) 66.1, Lymph % (Auto) 22.4, Desha % (Auto) 5.9, Eos % (Auto) 4.3, Baso % (Auto) 0.6, Absolute Neuts (auto) 5.7, Absolute Lymphs (auto) 1.94, Nucleated RBC % 0, Sodium 138, Potassium 3.7, Chloride 115 H, Carbon Dioxide 15.0 L, Anion Gap 8, BUN 16, Creatinine 0.59 L, Estim Creat Clear Calc 160.03, Est GFR (MDRD) Af Amer 207, Est GFR (MDRD) Non-Af 171, BUN/Creatinine Ratio 27.2 H, Glucose 85, Calcium 8.4 L, Total Bilirubin 0.40, AST 9 L, ALT 10 L, Alkaline Phosphatase 76, Total Protein 6.0 L, Albumin 2.5 L, Globulin 3.5, Albumin/Globulin Ratio 0.7 L Micro: Microbiology 06/30/24 Unknown Tissue - Sacral Gram Stain - Final 06/30/24 Unknown Tissue - Sacral Wound Culture - Preliminary Gram positive organism 06/30/24 Unknown Bone - Sacral Bone Gram Stain - Final 06/30/24 Unknown Bone - Sacral Bone Wound Culture - Preliminary Mixed Ximena Physical Exam Narrative alert, oriented x3 and no apparent distress Constitutional Narrative: Patient has cognitive impairment but is able to carry on conversation and answers simple questions appropriately. General Appearance: cooperative, well kempt and well developed Orientation / Consciousness: awake, oriented to person and oriented to place HEENT normocephalic, head/scalp atraumatic and moist oral mucous membranes Eyes PERRL, EOMs intact bilaterally and conjunctivae normal Neck supple, no JVD and thyroid normal General: trachea midline Resp normal respiratory effort, no retractions, no use of accessory muscles and clear to auscultation bilaterally Auscultation: Negative for rales, rhonchi or wheezes Cardio regular rate, regular rhythm, S1 normal heart sound, S2 normal heart sound, no murmurs, no rub and no gallops GI normal to inspection, nondistended, normoactive bowel sounds, soft to palpation, non-tender and non-distended GI Narrative: Patient has a colostomy and urostomy present Extremity no clubbing, cyanosis or edema Skin no rashes or lesions noted General Skin Exam: no breakdown Neuro CN's II-XII intact bilaterally, moves all extremities, no focal motor deficits and no sensory deficits noted Sensorium / Orientation: awake, alert, oriented to person and oriented to place Psych Psych Narrative: Patient has cognitive impairment Assessment & Plan Assessment/Plan (1) Iron deficiency anemia: PLAN: Plan 1. Iron deficiency anemia-labs will be monitored, patient does not require blood transfusion at this time, CBC will be rechecked tomorrow morning, I will order iron studies #2 seizure disorder-patient is on Keppra #3 spina bifida-complicates care, management, recovery, and prognosis #4 stage IV pressure injury to the coccyx-patient has a wound VAC, he will need repeat surgery next week Total clinical time spent by myself addressing the patient's medical issues, reviewing all of his data, and collaborating with patient's care team: 35 minutes Charges/Coding Visit Charges Inpatient E&M: 37826 Subs Hosp L2
[2024-07-01 20:19] LABS: Ferritin 13 ng/mL (26-388); Iron 11 ug/dL (65-175); Iron Binding Capacity,Total 230 ug/dL (250-450); PERCENT IRON SATURATION 4.8 % (15.0-55.0)
[2024-07-02 06:04] LABS: Absolute Lymphocyte Count 1.12 X10^3/uL (0.83-4.51); Absolute Neutrophil Count 9.3 X10^3/uL (2.0-7.7); Basophil# 0.05 X10^3/uL; Basophil% 0.4 % (0-1); Eosinophil# 0.26 X10^3/uL; Eosinophils% 2.2 % (0-5); Hematocrit 36.5 % (40-54); Hemoglobin 10.4 g/dL (13.0-16.5); Lymphocyte # 1.12 X10^3/ul (0.83-4.51); Lymphocyte % 9.7 % (19-41); Mean Corp Hgb Conc 28.5 g/dL (32-36); Mean Corpuscular Hgb 19.3 pg (27.0-32.0); Mean Corpuscular Volume 67.6 fL (80-94); Mean Platelet Vol. 9.1 fl (6.2-12.0); Monocyte# 0.79 X10^3/uL; Monocyte% 6.8 % (0-10); NRBC Flagged by Analyzer 0 % (0-5); Neutrophil # 9.33 X10^3/uL (2.7-7.7); Neutrophil % 80.5 % (47-70); POSITIVE MORPHOLOGY YES; Platelet Count 407 K/mm3 (150-450); RBC Distribution Width CV 20.5 % (11.6-14.6); RBC Distribution Width SD 47.5 fl (35.1-43.9); White Blood Count 11.6 K/mm3 (4.4-11.0)
[2024-07-02 06:06] VITALS: BP 107/69; PULSE 95; RESP 16; TEMP 36.9; O2SAT 100
[2024-07-02 06:18] LABS: Differential Indicated SCAN CRITERIA MET
[2024-07-02 07:05] LABS: Anisocytosis 3+; Differential Comment SCANNED; Macrocytosis RARE; Microcytosis 1+; Polychromasia 1+
[2024-07-02 07:07] LABS: Ovalocyte RARE; Stomatocyte RARE; Tear Drop Cell RARE
[2024-07-02 09:21] VITALS: BP 117/74; PULSE 105; RESP 18; TEMP 36.8; O2SAT 100
[2024-07-02] MEDS: Enoxaparin 40 MG/0.4 ML Syringe SC (09:29)
[2024-07-02] MEDS: levETIRAcetam 500 MG Tablet PO ×2 (09:29→21:44)
--- NOTE | 2024-07-02 11:27 | PN.SURG_ITS ---
<Statement entered by Myron Rodriguez MD - 07/02/24 14:02> Pt seen & evaluated w/MADHAV. I personally interviewed & exam the pt. I was involved in all aspects of pt's orders, interpretation of results & treatment Subjective Subjective Patient is doing well. He denies any complaints of discomfort today. Objective Data Objective Data Vital Signs: Vital Signs Temp Pulse Resp BP Pulse Ox O2 Del Method O2 Flow Rate 98.2 F 105 H 18 117/74 100 Room Air 3 07/02/24 09:21 07/02/24 09:21 07/02/24 09:21 07/02/24 09:21 07/02/24 09:21 07/02/24 09:06/30/24 09:15 Oxygen Flow Rate (L/min) 3 Oxygen Delivery Method Room Air Weight: 136 lb 3.931 oz Body Mass Index (BMI) 18.4 Intake & Output: Intake and Output for Last 24 Hours 06/30/24 07/01/24 07/02/24 23:59 23:59 23:59 Intake Total 1683.25 / 1683.25 840 / 840 400 / 400 Output Total 400 / 400 2500 / 2500 1075 / 1075 Balance 1283.25 / 1283.25 -1660 / -1660 -675 / -675 Lab / Micro Data Attestation: I reviewed the patient's lab results. 07/02/24 05:23 07/01/24 05:42 Labs: Laboratory Results - last 24 hr 07/01/24 19:52: Iron 11 L, TIBC 230 L, Iron Saturation 4.8 L, Ferritin 13 L 07/02/24 05:23: WBC 11.6 H, RBC 5.40, Hgb 10.4 L, Hct 36.5 L, MCV 67.6 L, MCH 19.3 L, MCHC 28.5 L, RDW Std Deviation 47.5 H, RDW Coeff of Cathy 20.5 H, Plt Count 407, MPV 9.1, Immature Gran % (Auto) 0.400, Neut % (Auto) 80.5 H, Lymph % (Auto) 9.7 L, [place] % (Auto) 6.8, Eos % (Auto) 2.2, Baso % (Auto) 0.4, Absolute Neuts (auto) 9.3 H, Absolute Lymphs (auto) 1.12, Nucleated RBC % 0, Differential Comment SCANNED, Polychromasia 1+, Anisocytosis 3+, Microcytosis 1+, Macrocytosis RARE, Tear Drop Cells RARE, Ovalocytes RARE, Stomatocytes RARE Micro: Microbiology 06/30/24 Unknown Bone - Sacral Bone Gram Stain - Final 06/30/24 Unknown Bone - Sacral Bone Wound Culture - Preliminary Mixed Ximena 06/30/24 Unknown Bone - Sacral Bone Anaerobic Culture - Preliminary Checking for anaerobes, further studies to follow. 06/30/24 Unknown Tissue - Sacral Gram Stain - Final 06/30/24 Unknown Tissue - Sacral Wound Culture - Preliminary Gram positive organism Physical Exam Narrative Sacral irrigating wound VAC changed without difficulty. Wound is pink in color. No signs of bleeding. Meliza wound is clear. Reapplied the irrigating wound VAC without difficulty. Good seal obtained. Patient tolerated wound VAC dressing change well. Const alert, oriented x3 and no apparent distress General Appearance: cooperative Orientation / Consciousness: awake HEENT normocephalic Eyes General Eye: normal appearance of both eyes Neck full ROM Resp normal respiratory effort and normal air movement Effort and Inspection: able to speak in complete sentences Cardio regular rate and regular rhythm Extremity normal capillary refill Neuro oriented x3 Sensorium / Orientation: awake and alert Psych thought process normal and cooperative Assessment & Plan Assessment/Plan (1) Stage IV pressure ulcer of sacral region: PLAN: Plan Patient is doing well. He denies any pain. He states that his gas/bloating has resolved. Irrigating wound VAC changed with no issues. Good seal in place. Preliminary tissue operative cultures positive for Mixed Gram Positive and gram negative organisms. Bone cultures show Mixed Ximena. Consulted ID and notified Dr. Light of the consult. Discussed plan of care with Dr. Rodriguez. Charges/Coding Procedures Integumentary [id number]: [id number] Global Visit
[2024-07-02] MEDS: Ferrous Sulfate 325 MG Tablet PO (12:26)
--- NOTE | 2024-07-02 14:14 | CON.PCM.ID_ITS ---
Assessment & Plan Assessment/Plan (1) Sacral osteomyelitis: PLAN: Taken to OR 06/30/[address] Rodriguez, surg pending so far. Has remote h/o MDR AcB and pseudomonas. Will cover with will [facility] flagyl for now. will follow, thank you, d/w surgery team HPI Consult Data Date of Consult: 07/02/24 HPI Narrative Reason for Consultation: osteo HPI Narrative: INESSA ADAMES, is a 28 M with h/o spina bifida, follows at wound center for several months worsened sacral ulcer. Admitted, taken to OR 06/30/[address] Rodriguez. Concern for osteo. No fever, no n/v/d. Has ostomy in place. Full ROS performed and neg except as noted above. [facility] Medical History Open wound Low iron Gastric reflux Methicillin resistant Staphylococcus epidermidis infection Cognitive decline Anxiety Psoriasis Uses wheelchair Kidney stone Seizures Incontinence of bowel Heartburn Non-smoker History of edema Hx of spina bifida Stage IV pressure ulcer of sacral region Congenital hip dysplasia Home Medications ?Medication ?Instructions ?Recorded ?Last Taken ?Type ferrous sulfate 325 mg (65 mg 325 mg PO DAILY@1200 90 days #90 01/31/23 Unknown Rx iron) tablet (FeroSul) tabs levetiracetam 500 mg tablet 500 mg PO BID #60 tabs 03/27/23 06/29/24 03:30 Rx (Keppra) catheter 14 Fr (Bard Coude Tip #120 ea 04/02/23 Unknown Rx Catheter) potassium 99 mg tablet 99 mg PO DAILY SUPPLEMENT 06/30/24 Unknown History Allergy/AdvReac Type Severity Reaction Status Date / Time latex Allergy Hives Verified 06/30/24 06:15 Penicillins Allergy Nausea/Vom/ Verified 06/30/24 06:15 Diarrhea levofloxacin (From Levaquin) AdvReac Mild Nausea/Vom/ Verified 06/30/24 06:15 Diarrhea Family History Other No significant family history Surgical History H/O bilateral hip replacements Colostomy in place Presence of urostomy S/P flap graft Ventricular shunt in place Social History household members: family current occupational status: disabled Smoking Status: Never smoker Electronic Cigarette Use: not used alcohol intake: never substance use type: does not use caffeine: Yes what type of physical activity do you participate in: none seatbelt use: always do you feel safe at home: Yes Physical Exam Const alert, oriented x3 and no apparent distress General Appearance: cooperative HEENT normocephalic and head/scalp atraumatic Eyes PERRL and EOMs intact bilaterally Neck supple and No nodes Resp normal air movement and clear to auscultation bilaterally Cardio regular rate and regular rhythm GI soft to palpation, non-tender and non-distended Extremity General Extremity: Negative for edema Skin Skin Narrative: reviewed wound photos Neuro CN's II-XII intact bilaterally Lab / Micro Data Attestation: I reviewed the patient's lab results. 07/02/24 05:23 07/01/24 05:42 Labs: Laboratory Results - last 24 hr 07/01/24 19:52: Iron 11 L, TIBC 230 L, Iron Saturation 4.8 L, Ferritin 13 L 07/02/24 05:23: WBC 11.6 H, RBC 5.40, Hgb 10.4 L, Hct 36.5 L, MCV 67.6 L, MCH 19.3 L, MCHC 28.5 L, RDW Std Deviation 47.5 H, RDW Coeff of Cathy 20.5 H, Plt Count 407, MPV 9.1, Immature Gran % (Auto) 0.400, Neut % (Auto) 80.5 H, Lymph % (Auto) 9.7 L, [place] % (Auto) 6.8, Eos % (Auto) 2.2, Baso % (Auto) 0.4, Absolute Neuts (auto) 9.3 H, Absolute Lymphs (auto) 1.12, Nucleated RBC % 0, Differential Comment SCANNED, Polychromasia 1+, Anisocytosis 3+, Microcytosis 1+, Macrocytosis RARE, Tear Drop Cells RARE, Ovalocytes RARE, Stomatocytes RARE Micro: Microbiology 06/30/24 Unknown Bone - Sacral Bone Gram Stain - Final 06/30/24 Unknown Bone - Sacral Bone Wound Culture - Preliminary Gram negative cynthia Coag Negative Staph Coag Negative Staph#2 Gram positive organism 06/30/24 Unknown Bone - Sacral Bone Anaerobic Culture - Preliminary Checking for anaerobes, further studies to follow. 06/30/24 Unknown Tissue - Sacral Gram Stain - Final 06/30/24 Unknown Tissue - Sacral Wound Culture - Preliminary Mixed Gram Pos & Gram Neg Org 06/30/24 Unknown Tissue - Sacral Anaerobic Culture - Preliminary Checking for anaerobes, further studies to follow.
[2024-07-02 14:30] VITALS: BP 108/63; PULSE 104; RESP 18; TEMP 37; O2SAT 98
[2024-07-02] MEDS: metroNIDAZOLE 500 MG Tablet PO ×2 (14:50→21:44)
[2024-07-02] MEDS: Gentamicin IV 310 MG in Dextrose 5%-Water (50mL Bag) 50 ML 115.5 MG IVPB (15:29)
--- NOTE | 2024-07-02 15:42 | PCM.RX.CS ---
Consult Antibiotic Management Pharmacy has been consulted to manage selected antibiotic: Gentamicin Type of Intervention Type of Consult: Follow-up Suspected Infection Suspected Infection: Skin/Soft tissue Prior Doses of Antibiotics Prior Doses of Antibiotics Received/Current Regimen: Gentamicin 310 mg IV first dose given 07/02/24 @ 1530 Labs Labs: Sodium 138 mmol/L (136-145) 07/01/24 05:42 Potassium 3.7 mmol/L (3.5-5.1) 07/01/24 05:42 Chloride 115 mmol/L (98-107) H 07/01/24 05:42 Carbon Dioxide 15.0 mmol/L (21.0-32.0) L 07/01/24 05:42 Anion Gap 8 (5-15) 07/01/24 05:42 BUN 16 mg/dL (7-18) 07/01/24 05:42 Creatinine 0.59 mg/dL (0.70-1.30) L 07/01/24 05:42 Est GFR (MDRD) Af Amer 207 mL/min (>60) 07/01/24 05:42 Est GFR (MDRD) Non-Af 171 mL/min (>60) 07/01/24 05:42 BUN/Creatinine Ratio 27.2 RATIO (10-20) H 07/01/24 05:42 Glucose 85 mg/dL (74-106) 07/01/24 05:42 Microbiology Microbiology: Microbiology 06/30/24 Unknown Tissue - Sacral Gram Stain - Final 06/30/24 Unknown Tissue - Sacral Wound Culture - Preliminary Mixed Gram Pos & Gram Neg Org 06/30/24 Unknown Tissue - Sacral Anaerobic Culture - Preliminary Checking for anaerobes, further studies to follow. 06/30/24 Unknown Bone - Sacral Bone Gram Stain - Final 06/30/24 Unknown Bone - Sacral Bone Wound Culture - Preliminary Gram negative cynthia Coag Negative Staph Coag Negative Staph#2 Gram positive organism 06/30/24 Unknown Bone - Sacral Bone Anaerobic Culture - Preliminary Checking for anaerobes, further studies to follow. Dosing Weight Weight used for dosin kg Estimated Creatinine Clearance Estimated Creatinine Clearance: ~ 160 Goal Trough Goal Trough: Other Pharmacy Plan for Drug Dosing Pharmacy Plan for Drug Dosing: Gentamicin consolidated dosing, 310 mg Q24H, random level 10 hours after initial dose (Initial dose = 07/02/24 @ 1530). Pharmacy Service will continue to monitor and adjust dosing as required. Follow-Up Labs Follow-Up Labs: Trough: Gentamicin Date/Time Labs Ordered Labs to be done on [date and time ordered]: 07/03/24 @ 0100
--- NOTE | 2024-07-02 15:43 | CHAPLAIN ---
Type of Pastoral Visit ___ Initial Visit _x__ Follow-up Visit ___ On-call Visit ___ General Patient Visit ___ Spiritual Assessment ___ Family Conference ___ Bereavement ___ Rapid Response ___ Code Blue ___ Other (describe below) Pastoral Care Referral From _x__ Patient ___ Family ___ Nurse ___ Physician ___ Channel Sales Manager ___ Alternative Energy Technician ___ Other (describe below) Sacrament/Intervention _x__ Active listening ___ Anointing ___ Shinto ___ Bereavement ___ Communion ___ Clementina exploration ___ _x__ Life review _x__ Prayer ___ Reconciliation ___ Sacrament of Sick _x__ Supportive presence ___ Wedding ___ Other (describe below) Pastoral Comments follow up as requested by this patient; he is comfortable just talking about the topics that are relevant to him at the time; pt believes he will be in the hospital for a longer period and anticipates surgery next week
[2024-07-02] MEDS: 0.9% Saline Lock 10 ML Syringe IV ×2 (15:45→15:56)
[2024-07-02] MEDS: Vancomycin HCl 1,500 MG in 0.9% Normal Saline (500mL Bag) 500 ML 250 MG IV (15:56)
--- NOTE | 2024-07-02 16:03 | PCM.RX.CS ---
Consult Antibiotic Management Pharmacy has been consulted to manage selected antibiotic: Vancomycin Type of Intervention Type of Consult: New start Suspected Infection Suspected Infection: Osteomyelitis Prior Doses of Antibiotics Prior Doses of Antibiotics Received/Current Regimen: Vancomycin 1500 mg IV x 1 given 07/02/24 @ 1556 Labs Labs: Sodium 138 mmol/L (136-145) 07/01/24 05:42 Potassium 3.7 mmol/L (3.5-5.1) 07/01/24 05:42 Chloride 115 mmol/L (98-107) H 07/01/24 05:42 Carbon Dioxide 15.0 mmol/L (21.0-32.0) L 07/01/24 05:42 Anion Gap 8 (5-15) 07/01/24 05:42 BUN 16 mg/dL (7-18) 07/01/24 05:42 Creatinine 0.59 mg/dL (0.70-1.30) L 07/01/24 05:42 Est GFR (MDRD) Af Amer 207 mL/min (>60) 07/01/24 05:42 Est GFR (MDRD) Non-Af 171 mL/min (>60) 07/01/24 05:42 BUN/Creatinine Ratio 27.2 RATIO (10-20) H 07/01/24 05:42 Glucose 85 mg/dL (74-106) 07/01/24 05:42 Microbiology Microbiology: Microbiology 06/30/24 Unknown Tissue - Sacral Gram Stain - Final 06/30/24 Unknown Tissue - Sacral Wound Culture - Preliminary Mixed Gram Pos & Gram Neg Org 06/30/24 Unknown Tissue - Sacral Anaerobic Culture - Preliminary Checking for anaerobes, further studies to follow. 06/30/24 Unknown Bone - Sacral Bone Gram Stain - Final 06/30/24 Unknown Bone - Sacral Bone Wound Culture - Preliminary Gram negative cynthia Coag Negative Staph Coag Negative Staph#2 Gram positive organism 06/30/24 Unknown Bone - Sacral Bone Anaerobic Culture - Preliminary Checking for anaerobes, further studies to follow. Dosing Weight Weight used for dosin kg Estimated Creatinine Clearance Estimated Creatinine Clearance: ~ 160 Goal Trough Goal Trough: 15-20 mcg/mL Pharmacy Plan for Drug Dosing Pharmacy Plan for Drug Dosing: Vancomycin 1500 m IV x 1 followed by 750 mg Q8H Pharmacy Service will continue to monitor and adjust dosing as required. Follow-Up Labs Follow-Up Labs: Trough: Vancomycin Date/Time Labs Ordered Labs to be done on [date and time ordered]: 07/03/24 @ 3613
--- NOTE | 2024-07-02 18:51 | PCM.PN.HOSP ---
Reason for Visit Reason for Visit: Diagnoses Iron deficiency anemia, unspecified (06/30/24) Pressure ulcer of sacral region, stage 4 (06/30/24) Osteomyelitis of vertebra, sacral and sacrococcygeal region (06/30/24) Subjective Subjective Patient was seen and examined today, he does not appear to be in any distress. I talked briefly with plastic surgery about his care. Objective Data Objective Data Vital Signs: Vital Signs Temp Pulse Resp BP Pulse Ox O2 Del Method O2 Flow Rate 98.6 F 104 H 18 108/63 98 Room Air 3 07/02/24 14:30 07/02/24 14:30 07/02/24 14:30 07/02/24 14:30 07/02/24 14:30 07/02/24 14:30 06/30/24 09:15 Oxygen Flow Rate (L/min) 3 Oxygen Delivery Method Room Air Weight: 61.8 kg Body Mass Index (BMI) 18.4 Intake & Output: Intake and Output for Last 24 Hours 06/30/24 07/01/24 07/02/24 23:59 23:59 23:59 Intake Total 1683.25 / 1683.25 840 / 840 1227.75 / 1227.75 Output Total 400 / 400 2500 / 2500 2175 / 2175 Balance 1283.25 / 1283.25 -1660 / -1660 -947.25 / -947.25 Lab / Micro Data 07/02/24 05:23 07/01/24 05:42 Labs: Laboratory Results - last 24 hr 07/01/24 19:52: Iron 11 L, TIBC 230 L, Iron Saturation 4.8 L, Ferritin 13 L 07/02/24 05:23: WBC 11.6 H, RBC 5.40, Hgb 10.4 L, Hct 36.5 L, MCV 67.6 L, MCH 19.3 L, MCHC 28.5 L, RDW Std Deviation 47.5 H, RDW Coeff of Cathy 20.5 H, Plt Count 407, MPV 9.1, Immature Gran % (Auto) 0.400, Neut % (Auto) 80.5 H, Lymph % (Auto) 9.7 L, Nicholas % (Auto) 6.8, Eos % (Auto) 2.2, Baso % (Auto) 0.4, Absolute Neuts (auto) 9.3 H, Absolute Lymphs (auto) 1.12, Nucleated RBC % 0, Differential Comment SCANNED, Polychromasia 1+, Anisocytosis 3+, Microcytosis 1+, Macrocytosis RARE, Tear Drop Cells RARE, Ovalocytes RARE, Stomatocytes RARE Micro: Microbiology 06/30/24 Unknown Tissue - Sacral Gram Stain - Final 06/30/24 Unknown Tissue - Sacral Wound Culture - Preliminary Mixed Gram Pos & Gram Neg Org 06/30/24 Unknown Tissue - Sacral Anaerobic Culture - Preliminary Checking for anaerobes, further studies to follow. 06/30/24 Unknown Bone - Sacral Bone Gram Stain - Final 06/30/24 Unknown Bone - Sacral Bone Wound Culture - Preliminary Gram negative cynthia Coag Negative Staph Coag Negative Staph#2 Gram positive organism 06/30/24 Unknown Bone - Sacral Bone Anaerobic Culture - Preliminary Checking for anaerobes, further studies to follow. Physical Exam Narrative alert, oriented x3 and no apparent distress Constitutional Narrative: Patient has cognitive impairment but is able to carry on conversation and answers simple questions appropriately. General Appearance: cooperative, well kempt and well developed Orientation / Consciousness: awake, oriented to person and oriented to place HEENT normocephalic, head/scalp atraumatic and moist oral mucous membranes Eyes PERRL, EOMs intact bilaterally and conjunctivae normal Neck supple, no JVD and thyroid normal General: trachea midline Resp normal respiratory effort, no retractions, no use of accessory muscles and clear to auscultation bilaterally Auscultation: Negative for rales, rhonchi or wheezes Cardio regular rate, regular rhythm, S1 normal heart sound, S2 normal heart sound, no murmurs, no rub and no gallops GI normal to inspection, nondistended, normoactive bowel sounds, soft to palpation, non-tender and non-distended GI Narrative: Patient has a colostomy and urostomy present Extremity no clubbing, cyanosis or edema Skin no rashes or lesions noted General Skin Exam: no breakdown Neuro CN's II-XII intact bilaterally, moves all extremities, no focal motor deficits and no sensory deficits noted Sensorium / Orientation: awake, alert, oriented to person and oriented to place Psych Psych Narrative: Patient has cognitive impairment Assessment & Plan Assessment/Plan (1) Iron deficiency anemia: PLAN: Plan 1. 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
[2024-07-02] MEDS: Sodium Ferric Gluconat/Sucrose 250 MG in 0.9% Normal Saline (250mL Bag) 250 ML 135 MG IV (19:33)
[2024-07-02 20:30] VITALS: BP 115/64; PULSE 99; RESP 16; TEMP 36.9; O2SAT 98
[2024-07-02 21:20] VITALS: RESP 16
[2024-07-03] MEDS: Vancomycin HCl 750 MG in 0.9% Normal Saline (250mL Bag) 250 ML 250 MG IV ×2 (00:13→09:00)
[2024-07-03] MEDS: 0.9% Normal Saline (100mL Bag) 100 ML 15 ML IV (00:16)
--- NOTE | 2024-07-03 02:39 | PCM.RX.CS ---
Consult Antibiotic Management Pharmacy has been consulted to manage selected antibiotic: Gentamicin Type of Intervention Type of Consult: Follow-up Suspected Infection Suspected Infection: Osteomyelitis Labs Labs: Sodium 138 mmol/L (136-145) 07/01/24 05:42 Potassium 3.7 mmol/L (3.5-5.1) 07/01/24 05:42 Chloride 115 mmol/L (98-107) H 07/01/24 05:42 Carbon Dioxide 15.0 mmol/L (21.0-32.0) L 07/01/24 05:42 Anion Gap 8 (5-15) 07/01/24 05:42 BUN 16 mg/dL (7-18) 07/01/24 05:42 Creatinine 0.59 mg/dL (0.70-1.30) L 07/01/24 05:42 Est GFR (MDRD) Af Amer 207 mL/min (>60) 07/01/24 05:42 Est GFR (MDRD) Non-Af 171 mL/min (>60) 07/01/24 05:42 BUN/Creatinine Ratio 27.2 RATIO (10-20) H 07/01/24 05:42 Glucose 85 mg/dL (74-106) 07/01/24 05:42 Random Gentamicin 3.0 ug/mL 07/03/24 01:31 Microbiology Microbiology: Microbiology 06/30/24 Unknown Tissue - Sacral Gram Stain - Final 06/30/24 Unknown Tissue - Sacral Wound Culture - Preliminary Mixed Gram Pos & Gram Neg Org 06/30/24 Unknown Tissue - Sacral Anaerobic Culture - Preliminary Checking for anaerobes, further studies to follow. 06/30/24 Unknown Bone - Sacral Bone Gram Stain - Final 06/30/24 Unknown Bone - Sacral Bone Wound Culture - Preliminary Gram negative cynthia Coag Negative Staph Coag Negative Staph#2 Gram positive organism 06/30/24 Unknown Bone - Sacral Bone Anaerobic Culture - Preliminary Checking for anaerobes, further studies to follow. Dosing Weight Weight used for dosin.8 kg Estimated Creatinine Clearance Estimated Creatinine Clearance: 160 Pharmacy Plan for Drug Dosing Pharmacy Plan for Drug Dosing: Gentamicin level drawn 10 hours post-dose was 3.0. This falls within the dosing nomogram area to continue the q 24 hour dosing regimen. Will continue gentamicin at 310mg q24h, and will draw another 10-hr level in five days. Pharmacy Service will continue to monitor and adjust dosing as required. Follow-Up Labs Follow-Up Labs: Trough: Gentamicin (10-hr level) Date/Time Labs Ordered Labs to be done on [date and time ordered]: 07/08/24 @3177
[2024-07-03 04:07] LABS: Prealbumin 12 mg/dL (14-35)
[2024-07-03 05:24] VITALS: BP 101/62; PULSE 92; RESP 16; TEMP 36.7; O2SAT 98
[2024-07-03] MEDS: metroNIDAZOLE 500 MG Tablet PO ×3 (05:28→22:39)
--- NOTE | 2024-07-03 06:25 | PN.SURG_ITS ---
Subjective Subjective Doing well overall. Pain controlled. Tolerated bedside VAC change yesterday Objective Data Objective Data PATHOLOGY RESULTS MICROSCOPIC DIAGNOSIS A. Bone from sacrum: Fragments of bone with reactive changes. Negative for acute osteomyelitis. B. Skin from sacral wound, excision: Skin with extensive hyperkeratosis, pseudoepitheliomatous hyperplasia, and granulation tissue reaction. Negative for malignancy. 07/02/2024 MICROSCOPIC DESCRIPTION Slides are reviewed. GROSS DESCRIPTION A. Received in fixative is one container labeled with the patient's name and designated Bone from sacral wound. The specimen consists of two fragments of bone measuring in aggregate 0.5 x 0.3 x 0.1cm. B. Received in fixative is one container labeled with the patient's name and designated Skin from sacral wound. The specimen consists of a piece of skin with underlying tissue measuring 1.2 x 1.2 x 0.5cm. The specimen is inked, serially sectioned and submitted entirely in one cassette. 06/30/2024 TC:5 CPT:09184f7,51734 Electronically Signed by: Dr. Dr. Hebert Villalba MD 07/02/24 1445 Vital Signs: Vital Signs Temp Pulse Resp BP Pulse Ox O2 Del Method O2 Flow Rate 98.1 F 92 16 101/62 98 Room Air 3 07/03/24 05:24 07/03/24 05:24 07/03/24 05:24 07/03/24 05:24 07/03/24 05:24 07/03/24 05:24 06/30/24 09:15 Oxygen Flow Rate (L/min) 3 Oxygen Delivery Method Room Air Weight: 136 lb 3.931 oz Body Mass Index (BMI) 18.4 Intake & Output: Intake and Output for Last 24 Hours 07/01/24 07/02/24 07/03/24 23:59 23:59 23:59 Intake Total 840 / 840 1497.75 / 1497.75 265.25 / 265.25 Output Total 2500 / 2500 2175 / 2175 Balance -1660 / -1660 -677.25 / -677.25 265.25 / 265.25 Lab / Micro Data 07/02/24 05:23 07/01/24 05:42 Labs: Laboratory Results - last 24 hr 07/02/24 05:23: Differential Comment SCANNED, Polychromasia 1+, Anisocytosis 3+, Microcytosis 1+, Macrocytosis RARE, Tear Drop Cells RARE, Ovalocytes RARE, Stomatocytes RARE, Prealbumin 12 L 07/03/24 01:31: Random Gentamicin 3.0 Micro: Microbiology 06/30/24 Unknown Tissue - Sacral Gram Stain - Final 06/30/24 Unknown Tissue - Sacral Wound Culture - Preliminary Mixed Gram Pos & Gram Neg Org 06/30/24 Unknown Tissue - Sacral Anaerobic Culture - Preliminary Checking for anaerobes, further studies to follow. 06/30/24 Unknown Bone - Sacral Bone Gram Stain - Final 06/30/24 Unknown Bone - Sacral Bone Wound Culture - Preliminary Gram negative cynthia Coag Negative Staph Coag Negative Staph#2 Gram positive organism 06/30/24 Unknown Bone - Sacral Bone Anaerobic Culture - Preliminary Checking for anaerobes, further studies to follow. Physical Exam Narrative Sacral irrigating wound VAC working well. Meliza wound is clear. Const alert, oriented x3 and no apparent distress General Appearance: cooperative Orientation / Consciousness: awake HEENT normocephalic Eyes General Eye: normal appearance of both eyes Neck full ROM Resp normal respiratory effort and normal air movement Effort and Inspection: able to speak in complete sentences Cardio regular rate and regular rhythm Extremity normal capillary refill Neuro oriented x3 Sensorium / Orientation: awake and alert Psych thought process normal and cooperative Assessment & Plan Assessment/Plan (1) Decubitus ulcer of sacral area: QUALIFIERS: Pressure injury stage: stage 4 Qualified Code(s): L 89.154 - Pressure ulcer of sacral region, stage 4 PLAN: Plan Neuro: Continue oral pain meds PRN. Keppra (home medicine for seizures) CV: no concerns at this time Resp: IS Abdomen: Ostomy working, no issues : Voiding regularly, monitor output FEN: Regular diet, every other day electrolytes Hem: SCDs and Lovenox for DVT ppx. Iron per medicine consultation for iron deficiency anemia. ID: Infectious disease following for positive cultures. Vancomycin, Gentamicin per their recommendations. Renal: Monitor Cr while on antibiotics. Pathology (30 Jun 2024 samples): Exam of sacral bone negative for osteomyelitis. Ulcer skin negative for malignancy. Cultures: Bone NGTD, deep soft tissue cultures with mixed gram pos/negative, no speciation yet. Consults: ID and Medicine Charges/Coding Procedures Integumentary [id number]: [id number] Global Visit
[2024-07-03 09:00] VITALS: RESP 18
[2024-07-03] MEDS: Ensure Plus High Protein 120 ML LIQUID PO ×2 (09:00→17:10)
[2024-07-03 09:08] VITALS: BP 111/54; PULSE 109; RESP 16; TEMP 36.7; O2SAT 99
[2024-07-03] MEDS: levETIRAcetam 500 MG Tablet PO ×2 (11:08→22:39)
[2024-07-03] MEDS: Enoxaparin 40 MG/0.4 ML Syringe SC (11:08)
[2024-07-03] MEDS: Sodium Hypochlorite (Dakin's) 0.125% Wound Irrigation IRRIGATION (11:14)
[2024-07-03] MEDS: Sodium Ferric Gluconat/Sucrose 250 MG in 0.9% Normal Saline (250mL Bag) 250 ML 135 MG IV (11:58)
[2024-07-03] MEDS: Ferrous Sulfate 325 MG Tablet PO (14:36)
[2024-07-03] MEDS: Vancomycin Trough/Random Due 1 LAB MC (14:36)
[2024-07-03 15:00] VITALS: RESP 18
[2024-07-03] MEDS: Gentamicin IV 310 MG in Dextrose 5%-Water (50mL Bag) 50 ML 115.5 MG IVPB (15:00)
--- NOTE | 2024-07-03 15:48 | PN.HOSP_ITS ---
Reason for Visit Reason for Visit: Diagnoses Iron deficiency anemia, unspecified (06/30/24) Pressure ulcer of sacral region, stage 4 (06/30/24) Osteomyelitis of vertebra, sacral and sacrococcygeal region (06/30/24) Subjective Subjective Feeling well. Eating well. Objective Data Objective Data Vital Signs: Vital Signs Temp Pulse Resp BP Pulse Ox O2 Del Method O2 Flow Rate 36.7 C 109 H 16 111/54 L 99 Room Air 3 07/03/24 09:08 07/03/24 09:08 07/03/24 09:08 07/03/24 09:08 07/03/24 09:08 07/03/24 09:08 06/30/24 09:15 Oxygen Flow Rate (L/min) 3 Oxygen Delivery Method Room Air Weight: 61.8 kg Body Mass Index (BMI) 18.4 Intake & Output: Intake and Output for Last 24 Hours 07/01/24 07/02/24 07/03/24 23:59 23:59 23:59 Intake Total 840 / 840 1697.75 / 1697.75 1930.00 / 1930.00 Output Total 2500 / 2500 2175 / 2175 800 / 800 Balance -1660 / -1660 -477.25 / -477.25 1130.00 / 1130.00 Lab / Micro Data 07/02/24 05:23 07/01/24 05:42 Labs: Laboratory Results - last 24 hr 07/02/24 05:23: Prealbumin 12 L 07/03/24 01:31: Random Gentamicin 3.0 Micro: Microbiology 06/30/24 Unknown Tissue - Sacral Gram Stain - Final 06/30/24 Unknown Tissue - Sacral Wound Culture - Preliminary Staphylococcus sciuri Gram negative cynthia GPC Poss Enterococcus sp Gram positive cynthia 06/30/24 Unknown Tissue - Sacral Anaerobic Culture - Final No anaerobic bacteria isolated. 06/30/24 Unknown Bone - Sacral Bone Gram Stain - Final 06/30/24 Unknown Bone - Sacral Bone Wound Culture - Preliminary Acinetobacter baumannii Staphylococcus sciuri Staphylococcus epidermidis Gram positive cynthia 06/30/24 Unknown Bone - Sacral Bone Anaerobic Culture - Final No anaerobic bacteria isolated. Physical Exam Const Constitutional Narrative: sitting up in bed. cooperative. Afebrile. Non-toxic. HEENT head/scalp atraumatic and moist oral mucous membranes Resp normal respiratory effort, no retractions, no use of accessory muscles and clear to auscultation bilaterally Cardio regular rate and S1 normal heart sound GI GI Narrative: umbilical orifice for catheter access w/o erythema. Extremity Extremity Narrative: sacral wound vac in place without surrounding erythema. Neuro Sensorium / Orientation: awake and alert Assessment & Plan Assessment/Plan (1) Iron deficiency anemia: PLAN: Plan Iron deficiency anemia * Hg stable * on Ferrous gluconate. Stage IV coccyx pressure ulcer. * s/p Excision of sacral wound, 10.2 x 5 cm (2 cm deep down to bone), Application of irrigating negative pressure wound VAC (not disposable), >50 cm * Plan for flap reconstruction next week. * ID on consult. On abx with vanc, gent and metronidazole. 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 Charges/Coding Visit Charges Inpatient E&M: 45125 Subs Hosp L2
[2024-07-03 16:52] LABS: Vancomycin, Trough Level 24.1 ug/mL (5.0-15.0)
--- NOTE | 2024-07-03 16:59 | PCM.RX.CS ---
Consult Antibiotic Management Pharmacy has been consulted to manage selected antibiotic: Vancomycin Type of Intervention Type of Consult: Follow-up Labs Labs: Sodium 138 mmol/L (136-145) 07/01/24 05:42 Potassium 3.7 mmol/L (3.5-5.1) 07/01/24 05:42 Chloride 115 mmol/L (98-107) H 07/01/24 05:42 Carbon Dioxide 15.0 mmol/L (21.0-32.0) L 07/01/24 05:42 Anion Gap 8 (5-15) 07/01/24 05:42 BUN 16 mg/dL (7-18) 07/01/24 05:42 Creatinine 0.59 mg/dL (0.70-1.30) L 07/01/24 05:42 Est GFR (MDRD) Af Amer 207 mL/min (>60) 07/01/24 05:42 Est GFR (MDRD) Non-Af 171 mL/min (>60) 07/01/24 05:42 BUN/Creatinine Ratio 27.2 RATIO (10-20) H 07/01/24 05:42 Glucose 85 mg/dL (74-106) 07/01/24 05:42 Random Gentamicin 3.0 ug/mL 07/03/24 01:31 Vancomycin Trough 24.1 ug/mL (5.0-15.0) H 07/03/24 16:19 Microbiology Microbiology: Microbiology 06/30/24 Unknown Tissue - Sacral Gram Stain - Final 06/30/24 Unknown Tissue - Sacral Wound Culture - Preliminary Staphylococcus sciuri Gram negative cynthia GPC Poss Enterococcus sp Gram positive cynthia 06/30/24 Unknown Tissue - Sacral Anaerobic Culture - Final No anaerobic bacteria isolated. 06/30/24 Unknown Bone - Sacral Bone Gram Stain - Final 06/30/24 Unknown Bone - Sacral Bone Wound Culture - Preliminary Acinetobacter baumannii Staphylococcus sciuri Staphylococcus epidermidis Gram positive cynthia 06/30/24 Unknown Bone - Sacral Bone Anaerobic Culture - Final No anaerobic bacteria isolated. Pharmacy Plan for Drug Dosing Pharmacy Plan for Drug Dosing: VANCOMYCIN LEVEL RECEIVED Current Vancomycin Dose: 750MG Q8 Number of Doses Received: 3 Vancomycin Level: 24.1 MG/DL Hours Since Last Dose: 7.5 Renal Function: SCr 0.59 mg/dl (from 07/02, labs ordered for tomorrow AM) Renal Function Trend: unknown, only 1 level Lab/Micro: poss enterococcus in wound cx Vancomycin Plan/Comments: 7.5 hour trough is supratherapeutic at 24.1 mg/dl (goal 15-20). Will hold dosing for now and get a random level in 8 hours. Pending Level: 07/04/24 @ 0000 Pharmacy Service will continue to monitor and adjust dosing as required.
[2024-07-03 17:00] VITALS: BP 112/66; PULSE 106; RESP 16; TEMP 36.7; O2SAT 99
[2024-07-03 22:33] VITALS: BP 105/61; PULSE 106; RESP 18; TEMP 36.9; O2SAT 98
[2024-07-04 00:53] LABS: Vancomycin, Random Level 14.5 ug/mL (0.0-15.0)
--- NOTE | 2024-07-04 01:02 | PCM.RX.CS ---
Consult Antibiotic Management Pharmacy has been consulted to manage selected antibiotic: Vancomycin Type of Intervention Type of Consult: Follow-up Suspected Infection Suspected Infection: Skin/Soft tissue Labs Labs: Sodium 138 mmol/L (136-145) 07/01/24 05:42 Potassium 3.7 mmol/L (3.5-5.1) 07/01/24 05:42 Chloride 115 mmol/L (98-107) H 07/01/24 05:42 Carbon Dioxide 15.0 mmol/L (21.0-32.0) L 07/01/24 05:42 Anion Gap 8 (5-15) 07/01/24 05:42 BUN 16 mg/dL (7-18) 07/01/24 05:42 Creatinine 0.59 mg/dL (0.70-1.30) L 07/01/24 05:42 Est GFR (MDRD) Af Amer 207 mL/min (>60) 07/01/24 05:42 Est GFR (MDRD) Non-Af 171 mL/min (>60) 07/01/24 05:42 BUN/Creatinine Ratio 27.2 RATIO (10-20) H 07/01/24 05:42 Glucose 85 mg/dL (74-106) 07/01/24 05:42 Random Gentamicin 3.0 ug/mL 07/03/24 01:31 Vancomycin Trough 24.1 ug/mL (5.0-15.0) H 07/03/24 16:19 Random Vancomycin 14.5 ug/mL (0.0-15.0) 07/04/24 00:29 Microbiology Microbiology: Microbiology 06/30/24 Unknown Tissue - Sacral Gram Stain - Final 06/30/24 Unknown Tissue - Sacral Wound Culture - Preliminary Staphylococcus sciuri Gram negative cynthia GPC Poss Enterococcus sp Gram positive cynthia 06/30/24 Unknown Tissue - Sacral Anaerobic Culture - Final No anaerobic bacteria isolated. 06/30/24 Unknown Bone - Sacral Bone Gram Stain - Final 06/30/24 Unknown Bone - Sacral Bone Wound Culture - Preliminary Acinetobacter baumannii Staphylococcus sciuri Staphylococcus epidermidis Gram positive cynthia 06/30/24 Unknown Bone - Sacral Bone Anaerobic Culture - Final No anaerobic bacteria isolated. Dosing Weight Weight used for dosin.8 kg Estimated Creatinine Clearance Estimated Creatinine Clearance: 160 Goal Trough Goal Trough: 15-20 mcg/mL Pharmacy Plan for Drug Dosing Pharmacy Plan for Drug Dosing: Random vancomycin level drawn 07/04 @0029 was 14.5. Per dosing calculator, a new dose of 1000mg q12h should give an estimated new trough of 17.8. Will initiate this and draw a trough level prior to the fourth dose of the new regimen. Pharmacy Service will continue to monitor and adjust dosing as required. Follow-Up Labs Follow-Up Labs: Trough: Vancomycin Date/Time Labs Ordered Labs to be done on [date and time ordered]: 07/05/24 @1230
[2024-07-04] MEDS: Vancomycin IV 1,000 MG/200 ML BAG 200 MG IV ×2 (01:10→13:53)
[2024-07-04] MEDS: 0.9% Saline Lock 10 ML Syringe IV ×2 (01:11→18:11)
[2024-07-04 01:16] VITALS: BP 106/65; PULSE 106; RESP 16; TEMP 36.7; O2SAT 99
[2024-07-04 04:08] LABS: Hemoglobin 8.2 g/dL (13.0-16.5); Mean Corp Hgb Conc 29.3 g/dL (32-36); Mean Corpuscular Hgb 19.6 pg (27.0-32.0); Mean Platelet Vol. 8.9 fl (6.2-12.0); Platelet Count 363 K/mm3 (150-450); RBC Distribution Width CV 19.9 % (11.6-14.6); RBC Distribution Width SD 47.8 fl (35.1-43.9); Red Blood Count 4.18 M/mm3 (4.6-6.2); White Blood Count 9.8 K/mm3 (4.4-11.0)
[2024-07-04 04:23] LABS: Anion Gap 9 (5-15); BUN 8 mg/dL (7-18); Calcium,Total 8.4 mg/dL (8.5-10.1); Chloride 113 mmol/L (98-107); Creatinine, Serum 0.67 mg/dL (0.70-1.30); EST Glomerular Filtration Rate 148 mL/min (>60); Est Glom Filt Rate - Afr Amer 179 mL/min (>60); Estimated Creatinine Clearance 140.92 ml/min; Glucose 89 mg/dL (74-106); Potassium 3.1 mmol/L (3.5-5.1); Sodium Level 138 mmol/L (136-145)
[2024-07-04 06:31] VITALS: BP 96/44; PULSE 94; RESP 16; TEMP 36.7; O2SAT 99
[2024-07-04] MEDS: metroNIDAZOLE 500 MG Tablet PO ×3 (06:33→20:09)
--- NOTE | 2024-07-04 08:04 | PCM.PN.HOSP ---
Reason for Visit Reason for Visit: Diagnoses Iron deficiency anemia, unspecified (06/30/24) Pressure ulcer of sacral region, stage 4 (06/30/24) Osteomyelitis of vertebra, sacral and sacrococcygeal region (06/30/24) Subjective Subjective No new issues overnight. Objective Data Objective Data Vital Signs: Vital Signs Temp Pulse Resp BP Pulse Ox O2 Del Method O2 Flow Rate 36.7 C 94 16 96/44 L 99 Room Air 3 07/04/24 06:31 07/04/24 06:31 07/04/24 06:31 07/04/24 06:31 07/04/24 06:31 07/04/24 06:31 06/30/24 09:15 Oxygen Flow Rate (L/min) 3 Oxygen Delivery Method Room Air Weight: 61.8 kg Body Mass Index (BMI) 18.4 Intake & Output: Intake and Output for Last 24 Hours 07/02/24 07/03/24 07/04/24 23:59 23:59 23:59 Intake Total 1697.75 / 1697.75 3057.75 / 3557.75 1300 / 1300 Output Total 2175 / 2175 1400 / 2100 1825 / 1825 Balance -477.25 / -477.25 1657.75 / 1457.75 -525 / -525 Lab / Micro Data 07/04/24 03:44 07/04/24 03:44 Labs: Laboratory Results - last 24 hr 07/03/24 16:19: Vancomycin Trough 24.1 H 07/04/24 00:29: Random Vancomycin 14.5 07/04/24 03:44: WBC 9.8, RBC 4.18 L, Hgb 8.2 L, Hct 28.0 L, MCV 67.0 L, MCH 19.6 L, MCHC 29.3 L, RDW Std Deviation 47.8 H, RDW Coeff of Cathy 19.9 H, Plt Count 363, MPV 8.9, Sodium 138, Potassium 3.1 L, Chloride 113 H, Carbon Dioxide 17.0 L, Anion Gap 9, BUN 8, Creatinine 0.67 L, Estim Creat Clear Calc 140.92, Est GFR (MDRD) Af Amer 179, Est GFR (MDRD) Non-Af 148, BUN/Creatinine Ratio 12.0, Glucose 89, Calcium 8.4 L Micro: Microbiology 06/30/24 Unknown Tissue - Sacral Gram Stain - Final 06/30/24 Unknown Tissue - Sacral Wound Culture - Preliminary Staphylococcus sciuri Acinetobacter baumannii Enterococcus faecalis Corynebacterium jeikeium 06/30/24 Unknown Tissue - Sacral Anaerobic Culture - Final No anaerobic bacteria isolated. 06/30/24 Unknown Bone - Sacral Bone Gram Stain - Final 06/30/24 Unknown Bone - Sacral Bone Wound Culture - Final Acinetobacter baumannii Staphylococcus sciuri Staphylococcus epidermidis Corynebacterium jeikeium 06/30/24 Unknown Bone - Sacral Bone Anaerobic Culture - Final No anaerobic bacteria isolated. Physical Exam Const alert and no apparent distress Neuro Sensorium / Orientation: awake and alert Psych affect normal Assessment & Plan Assessment/Plan (1) Iron deficiency anemia: PLAN: Plan Iron deficiency anemia Hg dropped from 10.4 to 8.2. No transfusion indicated at this time, so will continue to monitor. on Ferrous gluconate. Stage IV coccyx pressure ulcer. s/p Excision of sacral wound, 10.2 x 5 cm (2 cm deep down to bone), Application of irrigating negative pressure wound VAC (not disposable), >50 cm Plan for flap reconstruction next week. ID on consult. On abx with vanc, gent and metronidazole. 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 Charges/Coding Visit Charges Inpatient E&M: 65915 [facility] L1
[2024-07-04 09:47] VITALS: BP 111/64; PULSE 98; RESP 18; TEMP 36.7; O2SAT 99
[2024-07-04] MEDS: Ensure Plus High Protein 120 ML LIQUID PO ×2 (09:49→12:47)
[2024-07-04] MEDS: Enoxaparin 40 MG/0.4 ML Syringe SC (09:50)
[2024-07-04] MEDS: levETIRAcetam 500 MG Tablet PO ×2 (09:50→20:09)
[2024-07-04] MEDS: Sodium Ferric Gluconat/Sucrose 250 MG in 0.9% Normal Saline (250mL Bag) 250 ML 135 MG IV (09:50)
--- NOTE | 2024-07-04 11:01 | PCM.PN.SRG ---
Subjective Subjective Reports good pain control. Voiding and his ostomy is productive. Talked to nursing staff and they report poor choices with nutrition (not eating eggs or any protein, eating carbohydrates and processed food only). hr shared services consultant has seen him, however, and is working with him. Objective Data Objective Data Vital Signs: Vital Signs Temp Pulse Resp BP Pulse Ox O2 Del Method O2 Flow Rate 98.0 F 98 18 111/64 99 Room Air 3 07/04/24 09:47 07/04/24 09:47 07/04/24 09:47 07/04/24 09:47 07/04/24 09:47 07/04/24 09:47 06/30/24 09:15 Oxygen Flow Rate (L/min) 3 Oxygen Delivery Method Room Air Weight: 136 lb 3.931 oz Body Mass Index (BMI) 18.4 Intake & Output: Intake and Output for Last 24 Hours 07/02/24 07/03/24 07/04/24 23:59 23:59 23:59 Intake Total 1697.75 / 1697.75 3057.75 / 3557.75 1300 / 1300 Output Total 2175 / 2175 1400 / 2100 1825 / 1825 Balance -477.25 / -477.25 1657.75 / 1457.75 -525 / -525 Lab / Micro Data 07/04/24 03:44 07/04/24 03:44 Labs: Laboratory Results - last 24 hr 07/03/24 16:19: Vancomycin Trough 24.1 H 07/04/24 00:29: Random Vancomycin 14.5 07/04/24 03:44: WBC 9.8, RBC 4.18 L, Hgb 8.2 L, Hct 28.0 L, MCV 67.0 L, MCH 19.6 L, MCHC 29.3 L, RDW Std Deviation 47.8 H, RDW Coeff of Cathy 19.9 H, Plt Count 363, MPV 8.9, Sodium 138, Potassium 3.1 L, Chloride 113 H, Carbon Dioxide 17.0 L, Anion Gap 9, BUN 8, Creatinine 0.67 L, Estim Creat Clear Calc 140.92, Est GFR (MDRD) Af Amer 179, Est GFR (MDRD) Non-Af 148, BUN/Creatinine Ratio 12.0, Glucose 89, Calcium 8.4 L Micro: Microbiology 06/30/24 Unknown Tissue - Sacral Gram Stain - Final 06/30/24 Unknown Tissue - Sacral Wound Culture - Preliminary Staphylococcus sciuri Acinetobacter baumannii Enterococcus faecalis Corynebacterium jevonrenettaium 06/30/24 Unknown Tissue - Sacral Anaerobic Culture - Final No anaerobic bacteria isolated. 06/30/24 Unknown Bone - Sacral Bone Gram Stain - Final 06/30/24 Unknown Bone - Sacral Bone Wound Culture - Final Acinetobacter baumannii Staphylococcus sciuri Staphylococcus epidermidis Corynebacterium jevonikeium 06/30/24 Unknown Bone - Sacral Bone Anaerobic Culture - Final No anaerobic bacteria isolated. Physical Exam Narrative Sacral irrigating wound VAC working well. Meliza wound is clear. Const alert, oriented x3 and no apparent distress General Appearance: cooperative Orientation / Consciousness: awake HEENT normocephalic Eyes General Eye: normal appearance of both eyes Neck full ROM Resp normal respiratory effort and normal air movement Effort and Inspection: able to speak in complete sentences Cardio regular rate and regular rhythm Extremity normal capillary refill Neuro oriented x3 Sensorium / Orientation: awake and alert Psych thought process normal and cooperative Assessment & Plan Assessment/Plan (1) Decubitus ulcer of sacral area: QUALIFIERS: Pressure injury stage: stage 4 Qualified Code(s): L89.154 - Pressure ulcer of sacral region, stage 4 PLAN: Plan Neuro: Continue oral pain meds PRN. Keppra (home medicine for seizures) CV: no concerns at this time Resp: IS Abdomen: Ostomy working, no issues : Voiding regularly, monitor output FEN: Regular diet, every other day electrolytes. Continue nutrition consult. Discussed with nursing encouraging better intake. Hem: SCDs and Lovenox for DVT ppx. Iron per medicine consultation for iron deficiency anemia. No signs of bleeding today on physical exam, will monitor. ID: Infectious disease following for positive cultures. Vancomycin, Gentamicin per their recommendations. Renal: Monitor Cr while on antibiotics. Pathology (30 Jun 2024 samples): Exam of sacral bone negative for osteomyelitis. Ulcer skin negative for malignancy. Cultures: Bone with polymicrobial growth, and deep soft tissue cultures with mixed gram pos/negative as well. Susceptible to the gent/Vanc. Consults: ID and Medicine Charges/Coding Procedures Integumentary [id number]: [id number] Global Visit
[2024-07-04] MEDS: Ferrous Sulfate 325 MG Tablet PO (12:47)
[2024-07-04 14:10] VITALS: BP 119/62; PULSE 93; RESP 18; TEMP 36.6; O2SAT 99
[2024-07-04] MEDS: Mag Hydrox/Al Hydrox/Simeth 30 ML UDC 15 ML PO (14:13)
[2024-07-04] MEDS: Gentamicin IV 310 MG in Dextrose 5%-Water (50mL Bag) 50 ML 115.5 MG IVPB (15:42)
[2024-07-04] MEDS: Ondansetron 4 MG/2 ML Vial IV ×2 (18:11→23:35)
[2024-07-04 20:04] VITALS: BP 116/62; PULSE 100; RESP 16; TEMP 36.7; O2SAT 98
[2024-07-05] MEDS: Vancomycin IV 1,000 MG/200 ML BAG 200 MG IV (01:45)
[2024-07-05 01:50] VITALS: BP 96/51; PULSE 98; RESP 14; TEMP 36.7; O2SAT 98
[2024-07-05] MEDS: metroNIDAZOLE 500 MG Tablet PO ×3 (06:08→21:55)
[2024-07-05 06:44] LABS: Hemoglobin 8.3 g/dL (13.0-16.5); Mean Corp Hgb Conc 28.6 g/dL (32-36); Mean Corpuscular Hgb 19.8 pg (27.0-32.0); Mean Corpuscular Volume 69.2 fL (80-94); Mean Platelet Vol. 8.7 fl (6.2-12.0); POSITIVE MORPHOLOGY YES; Platelet Count 346 K/mm3 (150-450); RBC Distribution Width CV 20.3 % (11.6-14.6); RBC Distribution Width SD 48.5 fl (35.1-43.9); Red Blood Count 4.19 M/mm3 (4.6-6.2); White Blood Count 8.1 K/mm3 (4.4-11.0)
[2024-07-05 06:49] LABS: Scan Indicated on CBC? Y/N YES- FLAGS NOTED
[2024-07-05 07:13] LABS: Anion Gap 8 (5-15); BUN 5 mg/dL (7-18); BUN/Creat Ratio 6.4 RATIO (10-20); Calcium,Total 8.4 mg/dL (8.5-10.1); Chloride 110 mmol/L (98-107); Creatinine, Serum 0.78 mg/dL (0.70-1.30); EST Glomerular Filtration Rate 123 mL/min (>60); Est Glom Filt Rate - Afr Amer 149 mL/min (>60); Estimated Creatinine Clearance 121.05 ml/min; Glucose 86 mg/dL (74-106); Potassium 3.1 mmol/L (3.5-5.1); Sodium Level 139 mmol/L (136-145)
--- NOTE | 2024-07-05 07:29 | PCM.PN.HOSP ---
Reason for Visit Reason for Visit: Diagnoses Iron deficiency anemia, unspecified (06/30/24) Pressure ulcer of sacral region, stage 4 (06/30/24) Osteomyelitis of vertebra, sacral and sacrococcygeal region (06/30/24) Subjective Subjective Feeling ok. Had some nausea. Objective Data Objective Data Vital Signs: Vital Signs Temp Pulse Resp BP Pulse Ox O2 Del Method O2 Flow Rate 36.7 C 98 14 96/51 L 98 Room Air 3 07/05/24 01:50 07/05/24 01:50 07/05/24 01:50 07/05/24 01:50 07/05/24 01:50 07/05/24 01:53 06/30/24 09:15 Oxygen Flow Rate (L/min) 3 Oxygen Delivery Method Room Air Weight: 61.8 kg Body Mass Index (BMI) 18.4 Intake & Output: Intake and Output for Last 24 Hours 07/03/24 07/04/24 07/05/24 23:59 23:59 23:59 Intake Total 3057.75 / 3557.75 3027.75 / 3267.75 920 / 920 Output Total 1400 / 2100 3225 / 3425 650 / 650 Balance 1657.75 / 1457.75 -197.25 / -157.25 270 / 270 Lab / Micro Data 07/05/24 05:44 07/05/24 05:44 Labs: Laboratory Results - last 24 hr 07/05/24 05:44: WBC 8.1, RBC 4.19 L, Hgb 8.3 L, Hct 29.0 L, MCV 69.2 L, MCH 19.8 L, MCHC 28.6 L, RDW Std Deviation 48.5 H, RDW Coeff of Cathy 20.3 H, Plt Count 346, MPV 8.7, Sodium 139, Potassium 3.1 L, Chloride 110 H, Carbon Dioxide 21.0, Anion Gap 8, BUN 5 L, Creatinine 0.78, Estim Creat Clear Calc 121.05, Est GFR (MDRD) Af Amer 149, Est GFR (MDRD) Non-Af 123, BUN/Creatinine Ratio 6.4 L, Glucose 86, Calcium 8.4 L Micro: Microbiology 06/30/24 Unknown Tissue - Sacral Gram Stain - Final 06/30/24 Unknown Tissue - Sacral Wound Culture - Preliminary Staphylococcus sciuri Acinetobacter baumannii Enterococcus faecalis Corynebacterium jeikeium 06/30/24 Unknown Tissue - Sacral Anaerobic Culture - Final No anaerobic bacteria isolated. 06/30/24 Unknown Bone - Sacral Bone Gram Stain - Final 06/30/24 Unknown Bone - Sacral Bone Wound Culture - Final Acinetobacter baumannii Staphylococcus sciuri Staphylococcus epidermidis Corynebacterium jeikeium 06/30/24 Unknown Bone - Sacral Bone Anaerobic Culture - Final No anaerobic bacteria isolated. Physical Exam Const alert and no apparent distress HEENT head/scalp atraumatic and moist oral mucous membranes Resp normal respiratory effort, no retractions, no use of accessory muscles and clear to auscultation bilaterally Cardio regular rate, regular rhythm, S1 normal heart sound and S2 normal heart sound GI normal to inspection, nondistended, normoactive bowel sounds, soft to palpation, non-tender and non-distended GI Narrative: colostomy with brown stool. Assessment & Plan Assessment/Plan (1) Iron deficiency anemia: PLAN: Plan Iron deficiency anemia Hg dropped from 10.4 to 8.2, but stable at 8.3. No transfusion indicated at this time, so will continue to monitor. on IV Ferrous gluconate through today. Continue Ferrous sulfate upon discharge. Stage IV coccyx pressure ulcer. s/p Excision of sacral wound, 10.2 x 5 cm (2 cm deep down to bone), Application of irrigating negative pressure wound VAC (not disposable), >50 cm Plan for flap reconstruction next week. ID on consult. On abx with vanc, gent and metronidazole. 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 Charges/Coding Visit Charges Inpatient E&M: 08265 Subs Hosp L2
--- NOTE | 2024-07-05 08:41 | PN.SURG_ITS ---
Subjective Subjective Doing well overall, but last night vomited (antibiotics causing nausea v the iron infusions?). Felling well this morning though. Hungry for breakfast this morning. Discussed high protein diet/good nutrition for wound healing and patient endorsed an understanding. Objective Data Objective Data Vital Signs: Vital Signs Temp Pulse Resp BP Pulse Ox O2 Del Method O2 Flow Rate 98.1 F 98 14 96/51 L 98 Room Air 3 07/05/24 01:50 07/05/24 01:50 07/05/24 01:50 07/05/24 01:50 07/05/24 01:50 07/05/24 01:53 06/30/24 09:15 Oxygen Flow Rate (L/min) 3 Oxygen Delivery Method Room Air Weight: 136 lb 3.931 oz Body Mass Index (BMI) 18.4 Intake & Output: Intake and Output for Last 24 Hours 07/03/24 07/04/24 07/05/24 23:59 23:59 23:59 Intake Total 3057.75 / 3557.75 3027.75 / 3267.75 920 / 920 Output Total 1400 / 2100 3225 / 3425 650 / 650 Balance 1657.75 / 1457.75 -197.25 / -157.25 270 / 270 Lab / Micro Data 07/05/24 05:44 07/05/24 05:44 Labs: Laboratory Results - last 24 hr 07/05/24 05:44: WBC 8.1, RBC 4.19 L, Hgb 8.3 L, Hct 29.0 L, MCV 69.2 L, MCH 19.8 L, MCHC 28.6 L, RDW Std Deviation 48.5 H, RDW Coeff of Cathy 20.3 H, Plt Count 346, MPV 8.7, Sodium 139, Potassium 3.1 L, Chloride 110 H, Carbon Dioxide 21.0, Anion Gap 8, BUN 5 L, Creatinine 0.78, Estim Creat Clear Calc 121.05, Est GFR (MDRD) Af Amer 149, Est GFR (MDRD) Non-Af 123, BUN/Creatinine Ratio 6.4 L, Glucose 86, Calcium 8.4 L Micro: Microbiology 06/30/24 Unknown Tissue - Sacral Gram Stain - Final 06/30/24 Unknown Tissue - Sacral Wound Culture - Preliminary Staphylococcus sciuri Acinetobacter baumannii Enterococcus faecalis Corynebacterium jeikeium Mixed Gram Positive Organisms 06/30/24 Unknown Tissue - Sacral Anaerobic Culture - Final No anaerobic bacteria isolated. 06/30/24 Unknown Bone - Sacral Bone Gram Stain - Final 06/30/24 Unknown Bone - Sacral Bone Wound Culture - Final Acinetobacter baumannii Staphylococcus sciuri Staphylococcus epidermidis Corynebacterium skipium 06/30/24 Unknown Bone - Sacral Bone Anaerobic Culture - Final No anaerobic bacteria isolated. Physical Exam Narrative Sacral irrigating wound VAC working well. Meliza wound is clear. Const alert, oriented x3 and no apparent distress General Appearance: cooperative Orientation / Consciousness: awake HEENT normocephalic Eyes General Eye: normal appearance of both eyes Neck full ROM Resp normal respiratory effort and normal air movement Effort and Inspection: able to speak in complete sentences Cardio regular rate and regular rhythm GI GI Narrative: Soft abdomen, benign. Ostomy productive with normal, formed stool. Extremity normal capillary refill Neuro oriented x3 Sensorium / Orientation: awake and alert Psych thought process normal and cooperative Assessment & Plan Assessment/Plan (1) Decubitus ulcer of sacral area: QUALIFIERS: Pressure injury stage: stage 4 Qualified Code(s): L 89.154 - Pressure ulcer of sacral region, stage 4 PLAN: Plan Neuro: Continue oral pain meds PRN. Keppra (home medicine for seizures) CV: no concerns at this time Resp: IS Abdomen: Ostomy working, no issues. Will discuss N/V with medicine team. Zofran PRN : Voiding regularly, monitor output FEN: Regular diet, every other day electrolytes. Continue nutrition consult. Discussed with nursing encouraging better intake. Hem: SCDs and Lovenox for DVT ppx. Iron per medicine consultation for iron deficiency anemia. No signs of bleeding today on physical exam, will monitor. ID: Infectious disease following for positive cultures. Vancomycin, Gentamicin per their recommendations. Renal: Monitor Cr while on antibiotics. Pathology (30 Jun 2024 samples): Exam of sacral bone negative for osteomyelitis. Ulcer skin negative for malignancy. Cultures: Bone with polymicrobial growth, and deep soft tissue cultures with mixed gram pos/negative as well. Susceptible to the gent/Vanc. Consults: ID and Medicine Charges/Coding Procedures Integumentary [id number]: [id number] Global Visit
[2024-07-05 09:05] VITALS: BP 107/58; PULSE 86; RESP 18; TEMP 37; O2SAT 99
[2024-07-05] MEDS: levETIRAcetam 500 MG Tablet PO ×2 (09:13→21:55)
[2024-07-05] MEDS: Enoxaparin 40 MG/0.4 ML Syringe SC (09:13)
[2024-07-05] MEDS: Ensure Plus High Protein 120 ML LIQUID PO ×3 (09:13→21:54)
[2024-07-05] MEDS: Ferrous Sulfate 325 MG Tablet PO (09:14)
[2024-07-05] MEDS: 0.9% Saline Lock 10 ML Syringe IV ×4 (09:35→21:55)
[2024-07-05] MEDS: Ondansetron 4 MG/2 ML Vial IV (09:36)
[2024-07-05] MEDS: Sodium Ferric Gluconat/Sucrose 250 MG in 0.9% Normal Saline (250mL Bag) 250 ML 135 MG IV (09:36)
--- NOTE | 2024-07-05 10:17 | CASEMGMT ---
Social Work SW checked in w/pt around discharge plan. Pt states he does plan to go home w/family once he is ready for discharge. SW/CM will continue to follow to ensure an appropriate discharge plan. CARMEL Aguilar
--- NOTE | 2024-07-05 10:26 | NURSING ---
wound vac cannister changed
[2024-07-05] MEDS: Pantoprazole Sodium 40 MG Tablet PO ×2 (11:49→21:55)
[2024-07-05 13:10] LABS: Vancomycin, Trough Level 24.6 ug/mL (5.0-15.0)
--- NOTE | 2024-07-05 13:26 | PCM.RX.CS ---
Consult Antibiotic Management Pharmacy has been consulted to manage selected antibiotic: Vancomycin Type of Intervention Type of Consult: Follow-up Suspected Infection Suspected Infection: Osteomyelitis Prior Doses of Antibiotics Prior Doses of Antibiotics Received/Current Regimen: Vancomycin 1000mg every 12 hours 07/04/23 @ 0110 07/04/23 @ 1353 07/05/23 @ 0145 Labs Labs: Sodium 139 mmol/L (136-145) 07/05/24 05:44 Potassium 3.1 mmol/L (3.5-5.1) L 07/05/24 05:44 Chloride 110 mmol/L (98-107) H 07/05/24 05:44 Carbon Dioxide 21.0 mmol/L (21.0-32.0) 07/05/24 05:44 Anion Gap 8 (5-15) 07/05/24 05:44 BUN 5 mg/dL (7-18) L 07/05/24 05:44 Creatinine 0.78 mg/dL (0.70-1.30) 07/05/24 05:44 Est GFR (MDRD) Af Amer 149 mL/min (>60) 07/05/24 05:44 Est GFR (MDRD) Non-Af 123 mL/min (>60) 07/05/24 05:44 BUN/Creatinine Ratio 6.4 RATIO (10-20) L 07/05/24 05:44 Glucose 86 mg/dL (74-106) 07/05/24 05:44 Random Gentamicin 3.0 ug/mL 07/03/24 01:31 Vancomycin Trough 24.6 ug/mL (5.0-15.0) H 07/05/24 12:20 Random Vancomycin 14.5 ug/mL (0.0-15.0) 07/04/24 00:29 Microbiology Microbiology: Microbiology 06/30/24 Unknown Tissue - Sacral Gram Stain - Final 06/30/24 Unknown Tissue - Sacral Wound Culture - Preliminary Staphylococcus sciuri Acinetobacter baumannii Enterococcus faecalis Corynebacterium jeikeium Mixed Gram Positive Organisms 06/30/24 Unknown Tissue - Sacral Anaerobic Culture - Final No anaerobic bacteria isolated. 06/30/24 Unknown Bone - Sacral Bone Gram Stain - Final 06/30/24 Unknown Bone - Sacral Bone Wound Culture - Final Acinetobacter baumannii Staphylococcus sciuri Staphylococcus epidermidis Corynebacterium jeikeium 06/30/24 Unknown Bone - Sacral Bone Anaerobic Culture - Final No anaerobic bacteria isolated. Dosing Weight Weight used for dosin kg Estimated Creatinine Clearance Estimated Creatinine Clearance: 120 Goal Trough Goal Trough: 15-20 mcg/mL Pharmacy Plan for Drug Dosing Pharmacy Plan for Drug Dosing: Hold VAncomycin Random Vancomycin level Pharmacy Service will continue to monitor and adjust dosing as required. Follow-Up Labs Follow-Up Labs: Trough: Other Date/Time Labs Ordered Labs to be done on [date and time ordered]: 07/05/24 @ 0900 Random VAncomycin level
[2024-07-05 14:29] VITALS: BP 108/65; PULSE 101; RESP 18; TEMP 37.1; O2SAT 96
--- NOTE | 2024-07-05 15:47 | CASEMGMT ---
Social Work SW created in [facility] list of facilities in network w/pt's insurance, in pt's preferred geographic area and complete w/quality and resource use data should it be needed. CARMEL Aguilar
[2024-07-05] MEDS: Gentamicin IV 310 MG in Dextrose 5%-Water (50mL Bag) 50 ML 115.5 MG IVPB (16:05)
[2024-07-05] MEDS: 0.9% Normal Saline (100mL Bag) 100 ML IV (16:07)
--- NOTE | 2024-07-05 16:16 | PCM.PN.ID ---
Physical Exam Narrative Feeling better, mild nausea, no fever Const alert and no apparent distress General Appearance: cooperative Resp normal air movement and clear to auscultation bilaterally Cardio regular rate and regular rhythm GI soft to palpation, non-tender and non-distended Skin Skin Narrative: no new rash ID ID: Route of nutrition/ use of supplements: [] Nutritional Intake: [] IV Site: [] Calderon Catheter: [] Assessment & Plan Assessment/Plan (1) Sacral osteomyelitis: PLAN: Taken to OR 06/30/[address] Rodriguez, surg cx with CoNS x2, AcB, e faecalis, and corynebacter so far. Has remote h/o MDR AcB and pseudomonas. Covering with vanc, gent, flagyl for now. will follow
[2024-07-05] MEDS: proCHLORPERazine 10 MG/2 ML Vial 5 MG IV (17:52)
[2024-07-05 21:19] VITALS: BP 123/62; PULSE 97; RESP 18; TEMP 36.6; O2SAT 97
[2024-07-05 21:30] LABS: Vancomycin, Random Level 15.6 ug/mL (0.0-15.0)
--- NOTE | 2024-07-05 21:55 | PCM.RX.CS ---
Consult Antibiotic Management Pharmacy has been consulted to manage selected antibiotic: Vancomycin Type of Intervention Type of Consult: Follow-up Suspected Infection Suspected Infection: Skin/Soft tissue Labs Labs: Sodium 139 mmol/L (136-145) 07/05/24 05:44 Potassium 3.1 mmol/L (3.5-5.1) L 07/05/24 05:44 Chloride 110 mmol/L (98-107) H 07/05/24 05:44 Carbon Dioxide 21.0 mmol/L (21.0-32.0) 07/05/24 05:44 Anion Gap 8 (5-15) 07/05/24 05:44 BUN 5 mg/dL (7-18) L 07/05/24 05:44 Creatinine 0.78 mg/dL (0.70-1.30) 07/05/24 05:44 Est GFR (MDRD) Af Amer 149 mL/min (>60) 07/05/24 05:44 Est GFR (MDRD) Non-Af 123 mL/min (>60) 07/05/24 05:44 BUN/Creatinine Ratio 6.4 RATIO (10-20) L 07/05/24 05:44 Glucose 86 mg/dL (74-106) 07/05/24 05:44 Random Gentamicin 3.0 ug/mL 07/03/24 01:31 Vancomycin Trough 24.6 ug/mL (5.0-15.0) H 07/05/24 12:20 Random Vancomycin 15.6 ug/mL (0.0-15.0) H 07/05/24 21:05 Microbiology Microbiology: Microbiology 06/30/24 Unknown Tissue - Sacral Gram Stain - Final 06/30/24 Unknown Tissue - Sacral Wound Culture - Preliminary Staphylococcus sciuri Acinetobacter baumannii Enterococcus faecalis Corynebacterium jeikeium Mixed Gram Positive Organisms 06/30/24 Unknown Tissue - Sacral Anaerobic Culture - Final No anaerobic bacteria isolated. 06/30/24 Unknown Bone - Sacral Bone Gram Stain - Final 06/30/24 Unknown Bone - Sacral Bone Wound Culture - Final Acinetobacter baumannii Staphylococcus sciuri Staphylococcus epidermidis Corynebacterium jeikeium 06/30/24 Unknown Bone - Sacral Bone Anaerobic Culture - Final No anaerobic bacteria isolated. Dosing Weight Weight used for dosin.8 kg Estimated Creatinine Clearance Estimated Creatinine Clearance: 121 Goal Trough Goal Trough: 15-20 mcg/mL Pharmacy Plan for Drug Dosing Pharmacy Plan for Drug Dosing: Random vancomycin level drawn 07/05/24 @2105 was 15.6. This warrants resuming dosing. Per calculator, a new dose of 750mg q12h should give a new trough of 17.1. Will initiate now and draw a trough vanco level prior to fourth dose of new regimen. Pharmacy Service will continue to monitor and adjust dosing as required. Follow-Up Labs Follow-Up Labs: Trough: Vancomycin Date/Time Labs Ordered Labs to be done on [date and time ordered]: 07/07/24 @3748
[2024-07-05] MEDS: Vancomycin HCl 750 MG in 0.9% Normal Saline (250mL Bag) 250 ML 250 MG IV (21:56)
[2024-07-06] VITALS (16 sets, daily range): BP systolic 90–116; BP diastolic 44–82; PULSE 66–115; RESP 14–22; TEMP 36.1–37.4; O2SAT 97–100; BMI 18.4
[2024-07-06 05:57] LABS: Hematocrit 27.9 % (40-54); Hemoglobin 8.1 g/dL (13.0-16.5); Mean Corpuscular Volume 68.7 fL (80-94); Mean Platelet Vol. 8.6 fl (6.2-12.0); POSITIVE MORPHOLOGY YES; Platelet Count 326 K/mm3 (150-450); RBC Distribution Width CV 20.5 % (11.6-14.6); RBC Distribution Width SD 47.8 fl (35.1-43.9); Red Blood Count 4.06 M/mm3 (4.6-6.2); White Blood Count 8.2 K/mm3 (4.4-11.0)
[2024-07-06 06:00] LABS: Scan Indicated on CBC? Y/N YES- FLAGS NOTED
[2024-07-06 06:07] LABS: Partial Thromboplast Time 43.4 Seconds (24.1-36.2)
[2024-07-06 06:23] LABS: Anion Gap 7 (5-15); BUN 7 mg/dL (7-18); BUN/Creat Ratio 9.4 RATIO (10-20); Calcium,Total 8.4 mg/dL (8.5-10.1); Chloride 111 mmol/L (98-107); Creatinine, Serum 0.75 mg/dL (0.70-1.30); EST Glomerular Filtration Rate 130 mL/min (>60); Est Glom Filt Rate - Afr Amer 158 mL/min (>60); Estimated Creatinine Clearance 125.89 ml/min; Glucose 100 mg/dL (74-106); Potassium 3.2 mmol/L (3.5-5.1); Sodium Level 138 mmol/L (136-145)
--- NOTE | 2024-07-06 07:09 | PCM.PN.HOSP ---
Reason for Visit Reason for Visit: Diagnoses Iron deficiency anemia, unspecified (06/30/24) Pressure ulcer of sacral region, stage 4 (06/30/24) Osteomyelitis of vertebra, sacral and sacrococcygeal region (06/30/24) Subjective Subjective Feeling better, though has not eaten yet today. Objective Data Objective Data Vital Signs: Vital Signs Temp Pulse Resp BP Pulse Ox O2 Del Method O2 Flow Rate 36.4 C L 93 18 99/56 L 98 Room Air 3 07/06/24 03:52 07/06/24 03:52 07/06/24 03:52 07/06/24 03:52 07/06/24 03:52 07/06/24 03:52 06/30/24 09:15 Oxygen Flow Rate (L/min) 3 Oxygen Delivery Method Room Air Weight: 61.8 kg Body Mass Index (BMI) 18.4 Intake & Output: Intake and Output for Last 24 Hours 07/04/24 07/05/24 07/06/24 23:59 23:59 23:59 Intake Total 3027.75 / 3267.75 2279.13 / 2279.13 Output Total 3225 / 3425 2250 / 2250 875 / 875 Balance -197.25 / -157.25 29.13 / 29.13 -875 / -875 Lab / Micro Data 07/06/24 05:42 07/06/24 05:42 Labs: Laboratory Results - last 24 hr 07/05/24 05:44: WBC 8.1, RBC 4.19 L, Hgb 8.3 L, Hct 29.0 L, MCV 69.2 L, MCH 19.8 L, MCHC 28.6 L, RDW Std Deviation 48.5 H, RDW Coeff of Cathy 20.3 H, Plt Count 346, MPV 8.7, Sodium 139, Potassium 3.1 L, Chloride 110 H, Carbon Dioxide 21.0, Anion Gap 8, BUN 5 L, Creatinine 0.78, Estim Creat Clear Calc 121.05, Est GFR (MDRD) Af Amer 149, Est GFR (MDRD) Non-Af 123, BUN/Creatinine Ratio 6.4 L, Glucose 86, Calcium 8.4 L 07/05/24 12:20: Vancomycin Trough 24.6 H 07/05/24 21:05: Random Vancomycin 15.6 H 07/06/24 05:42: WBC 8.2, RBC 4.06 L, Hgb 8.1 L, Hct 27.9 L, MCV 68.7 L, MCH 20.0 L, MCHC 29.0 L, RDW Std Deviation 47.8 H, RDW Coeff of Cathy 20.5 H, Plt Count 326, MPV 8.6, APTT 43.4 H, Sodium 138, Potassium 3.2 L, Chloride 111 H, Carbon Dioxide 21.0, Anion Gap 7, BUN 7, Creatinine 0.75, Estim Creat Clear Calc 125.89, Est GFR (MDRD) Af Amer 158, Est GFR (MDRD) Non-Af 130, BUN/Creatinine Ratio 9.4 L, Glucose 100, Calcium 8.4 L Micro: Microbiology 06/30/24 Unknown Tissue - Sacral Gram Stain - Final 06/30/24 Unknown Tissue - Sacral Wound Culture - Preliminary Staphylococcus sciuri Acinetobacter baumannii Enterococcus faecalis Corynebacterium jeikeium Mixed Gram Positive Organisms 06/30/24 Unknown Tissue - Sacral Anaerobic Culture - Final No anaerobic bacteria isolated. 06/30/24 Unknown Bone - Sacral Bone Gram Stain - Final 06/30/24 Unknown Bone - Sacral Bone Wound Culture - Final Acinetobacter baumannii Staphylococcus sciuri Staphylococcus epidermidis Corynebacterium jeikeium 06/30/24 Unknown Bone - Sacral Bone Anaerobic Culture - Final No anaerobic bacteria isolated. Physical Exam Const Constitutional Narrative: Up in bed. Nontoxic. Afebrile. HEENT head/scalp atraumatic and moist oral mucous membranes Resp normal respiratory effort, no retractions, no use of accessory muscles and clear to auscultation bilaterally Cardio regular rate, regular rhythm, S1 normal heart sound and S2 normal heart sound GI normal to inspection, nondistended, normoactive bowel sounds, soft to palpation, non-tender and non-distended GI Narrative: colostomy in place. Assessment & Plan Assessment/Plan (1) Iron deficiency anemia: PLAN: Plan Iron deficiency anemia Hg dropped from 10.4 to 8.2, but stable at 8.1. No transfusion indicated at this time, so will continue to monitor. on IV Ferrous gluconate through today. Continue Ferrous sulfate upon discharge. Heme positive stool. Can follow up with GI as outpt for formal endoscopy. Stage IV coccyx pressure ulcer. s/p Excision of sacral wound, 10.2 x 5 cm (2 cm deep down to bone), Application of irrigating negative pressure wound VAC (not disposable), >50 cm Plan for flap reconstruction this week week. ID on consult. On abx with vanc, gent and metronidazole. Cx growing Staph sciuri, Acinetobacter baumannii, Enterococcus faecalis, Corynebacterium jeikeium Chronic conditions: seizure disorder-patient is on Keppra spina bifida-complicates care, management, recovery, and prognosis VTE prophylaxis: SCDs. Charges/Coding Visit Charges Inpatient E&M: 48009 Subs Hosp L2
[2024-07-06] MEDS: Potassium Chloride Oral Tablet 20 MEQ 40 MEQ PO (08:04)
[2024-07-06] MEDS: Pantoprazole Sodium 40 MG Tablet PO ×2 (08:05→21:00)
[2024-07-06] MEDS: levETIRAcetam 500 MG Tablet PO ×2 (08:05→21:00)
--- NOTE | 2024-07-06 08:17 | WOUNDNOTE ---
wound VAC dressing intact with good seal noted. OR planned today with Dr Rodriguez. will leave dressing in place. assessed the ostomy appliance. there is a small amount of unformed brown stool in the appliance. pt states he changes the appliance. prefers to use his own [employer] appliances. pt denies further needs at this time. will monitor.
--- NOTE | 2024-07-06 10:06 | PN.SURG_ITS ---
Subjective Subjective Patient sitting up in bed. He states that he has not been feeling well. He has had some nausea over the past few days. He states that today he is feeling better. He is NPO for his surgery this afternoon. Objective Data Objective Data Vital Signs: Vital Signs Temp Pulse Resp BP Pulse Ox O2 Del Method O2 Flow Rate 98.5 F 102 H 18 114/44 L 99 Room Air 3 07/06/24 07:56 07/06/24 07:56 07/06/24 07:56 07/06/24 07:56 07/06/24 07:56 07/06/24 07:56 06/30/24 09:15 Oxygen Flow Rate (L/min) 3 Oxygen Delivery Method Room Air Weight: 136 lb 3.931 oz Body Mass Index (BMI) 18.4 Intake & Output: Intake and Output for Last 24 Hours 07/04/24 07/05/24 07/06/24 23:59 23:59 23:59 Intake Total 3027.75 / 3267.75 2279.13 / 2279.13 120 / 120 Output Total 3225 / 3425 2250 / 2250 975 / 975 Balance -197.25 / -157.25 29.13 / 29.13 -855 / -855 Lab / Micro Data Attestation: I reviewed the patient's lab results. 07/06/24 05:42 07/06/24 05:42 Labs: Laboratory Results - last 24 hr 07/05/24 12:20: Vancomycin Trough 24.6 H 07/05/24 21:05: Random Vancomycin 15.6 H 07/06/24 05:42: WBC 8.2, RBC 4.06 L, Hgb 8.1 L, Hct 27.9 L, MCV 68.7 L, MCH 20.0 L, MCHC 29.0 L, RDW Std Deviation 47.8 H, RDW Coeff of Cathy 20.5 H, Plt Count 326, MPV 8.6, APTT 43.4 H, Sodium 138, Potassium 3.2 L, Chloride 111 H, Carbon Dioxide 21.0, Anion Gap 7, BUN 7, Creatinine 0.75, Estim Creat Clear Calc 125.89, Est GFR (MDRD) Af Amer 158, Est GFR (MDRD) Non-Af 130, BUN/Creatinine Ratio 9.4 L, Glucose 100, Calcium 8.4 L Micro: Microbiology 06/30/24 Unknown Tissue - Sacral Gram Stain - Final 06/30/24 Unknown Tissue - Sacral Wound Culture - Final Staphylococcus sciuri Acinetobacter baumannii Enterococcus faecalis Corynebacterium jeikeium Corynebacterium striatum Kocuria rosea Staphylococcus epidermidis 06/30/24 Unknown Tissue - Sacral Anaerobic Culture - Final No anaerobic bacteria isolated. 06/30/24 Unknown Bone - Sacral Bone Gram Stain - Final 06/30/24 Unknown Bone - Sacral Bone Wound Culture - Final Acinetobacter baumannii Staphylococcus sciuri Staphylococcus epidermidis Corynebacterium jeikeium 06/30/24 Unknown Bone - Sacral Bone Anaerobic Culture - Final No anaerobic bacteria isolated. Physical Exam Narrative Wound VAC keeping a good seal. Const alert, oriented x3 and no apparent distress General Appearance: cooperative HEENT normocephalic Eyes General Eye: normal appearance of both eyes Resp normal respiratory effort and normal air movement Effort and Inspection: able to speak in complete sentences Cardio regular rate and regular rhythm Extremity normal capillary refill Skin Wound Narrative: Irrigating wound VAC in place. Neuro oriented x3 Assessment & Plan Assessment/Plan (1) Decubitus ulcer of sacral area: QUALIFIERS: Pressure injury stage: stage 4 Qualified Code(s): L 89.154 - Pressure ulcer of sacral region, stage 4 (2) Sacral osteomyelitis: PLAN: Plan Patient is NPO for his scheduled surgery this afternoon. Wound VAC in place. No signs of bleeding. Operative cultures from 06/30/24: Tissue positive for Staphylococcus sciuri, Acinetobacter baumannii, MDRO Enterococcus faecalis, Corynebacterium jeikeium, Corynebacterium striatum, Kocuria rosea, and Staphylococcus epidermidis. Operative bone cultures positive for Acinetobacter baumannii, MDRO Staphylococcus sciuri, Staphylococcus epidermidis, and Corynebacterium jeikeium. Infectious disease is consulted and managing treatment of cultures with Vancomycin, Gentamicin and Flagyl. Pathology of sacral bone: Fragments of bone with reactive changes. Negative for acute osteomyelitis. Skin showed extensive hyperkeratosis, pseudoepitheliomatous hyperplasia, and granulation tissue reaction. Negative for malignancy. He had had issues with nausea over the past several days and he states that he is feeling better. Once he is no longer NPO, continue his protein supplementation. His Prealbumin is 12, which is down from 20 from May 2024. He has SCD's and Lovenox for DVT prophylaxis. Medicine is managing his iron deficiency anemia and history of seizure disorder (on Keppra) and spina bifida. Charges/Coding Procedures Integumentary [id number]: [id number] Global Visit
[2024-07-06] MEDS: Vancomycin HCl 750 MG in 0.9% Normal Saline (250mL Bag) 250 ML 250 MG IV ×2 (10:11→21:02)
--- NOTE | 2024-07-06 10:11 | NURSING ---
Concur with SN documentations under direction of primary RN
[2024-07-06] MEDS: 0.9% Saline Lock 10 ML Syringe IV ×2 (10:12→17:02)
--- NOTE | 2024-07-06 12:00 | PCM.PRE.AN2 ---
ASA Classification* ASA Classification ASA Classification: 3 Assessment & Plan Anesthesia* Anesthesia Assessment Anesthesia Assessment: Discussed sedation and/or anesthesia options, risks, benefits, and alternatives with patient/parents/legal guardian/POA. Questions invited. The patient/parents/legal guardian/POA seems to understand and agrees to proceed with anesthesia plan. Reviewed the physical assessment, medical history, allergy history and patient home medications list prior to surgery/procedure/anesthetic and documented any changes. Performed airway and anesthesia risk assessments. Anesthesia Type Anesthesia Type: General History Source History Obtained from:: Patient and Chart Anesthesia Focused Assessment* Temperature: 98.5 F Pulse Rate: 102 Blood Pressure: 114/44 Respiratory Rate: 18 Pulse Ox: 99 Oxygen Delivery Method: Room Air Oxygen Flow Rate (L/min): 3 Airway Assessment Mouth opens: >3 cm Mallampati Score: I Teeth Condition: Chipped/Broken (Chipped tooth #9. Rest of the teeth are tight.) Neck Range of motion (ROM): Full ROM Focused Labs Anesthesia Preop lab: CBC WBC 8.2 K/mm3 (4.4-11.0) 07/06/24 05:42 RBC 4.06 M/mm3 (4.6-6.2) L 07/06/24 05:42 Hgb 8.1 g/dL (13.0-16.5) L 07/06/24 05:42 Hct 27.9 % (40-54) L 07/06/24 05:42 Plt Count 326 K/mm3 (150-450) 07/06/24 05:42 CHEMISTRY Potassium 3.2 mmol/L (3.5-5.1) L 07/06/24 05:42 Sodium 138 mmol/L (136-145) 07/06/24 05:42 Magnesium 2.0 mg/dL (1.6-2.6) 01/29/23 12:20 BUN 7 mg/dL (7-18) 07/06/24 05:42 Creatinine 0.75 mg/dL (0.70-1.30) 07/06/24 05:42 Glucose 100 mg/dL (74-106) 07/06/24 05:42 COAG PT 16.8 SECONDS (11.7-14.9) H 01/29/23 12:20 Pre-Assessment Diagnosis/Proposed Procedure Planned Operative Procedure(s): EXCISION SACRAL WOUND WITH FLAP RECONSTRUCTION WITH IRRIGATING WOUND VAC, POSSIBLE DELAY CLOSURE, STAGE 1 Anesthesia History Anesthesia History - osteopathic neurologist: Anesthesia History - osteopathic neurologist Hx Hospitalization No 06/30/24 06:18 Any Problems With Anesthesia No 07/06/24 02:30 Cholinesterase deficiency No 07/06/24 02:30 You/Your Family Experience No 07/06/24 02:30 fever (hyperthermia) with Relationship Recent Exposure to Contagious Yes 07/06/24 02:30 Disease Does patient have nerve No 07/06/24 02:30 stimulator Patient instructed to have No 07/06/24 02:30 device shut off --Does patient have Pacemaker No 07/06/24 08:08 or ICD? When Was Last Pacemaker Check QUESTION #4 FULL TEXT: You/Your Family Experience fever (hyperthermia) with Anesthesia Last Oral Intake Last Oral intake: Last Oral Intake NPO since 08:09 07/06/24 08:08 Meds taken in AM with sips of Yes 07/06/24 08:08 water? Meds patient instructed to see MAR 07/06/24 08:08 take am of surgery Any additional information?: Yes NPO since: 08:09 (Patient had some apple juice at 809 to take his medications.) PONV PONV - osteopathic neurologist: PONV - osteopathic neurologist Female No 06/30/24 06:18 HX of Motion Sickness No 06/30/24 06:18 HX of N/V After Surgery Yes 06/30/24 06:18 Non-Smoker Yes 06/30/24 06:18 Duration of Surgery greater Yes 06/30/24 06:18 than 60 minutes Number of Risk Factors 3 06/30/24 06:18 PONV Score Moderate Risk 06/30/24 06:18 Height & Weight Height & Weight: Anesthesia: Height & Weight Height 6 ft 07/06/24 08:08 Weight: 61.8 kg 07/06/24 08:08 Body Mass Index (BMI) 18.4 07/06/24 08:08 Respiratory Assessment Respiratory Assessment - osteopathic neurologist: Respiratory Tract Infection Hx - osteopathic neurologist Hx Respiratory Tract Infection No 07/06/24 02:30 STOP Sleep Apnea STOP Sleep Apnea - osteopathic neurologist: STOP Sleep Apnea - osteopathic neurologist Hx Hypertension No 06/30/24 06:18 Hx Sleep Apnea No 06/30/24 09:34 CPAP BIPAP Do you snore loudly (louder No 06/30/24 06:18 than talking or can be heard Do you often feel tired/ No 06/30/24 06:18 fatigued/ sleepy during daytime? Has anyone observed you stop No 06/30/24 06:18 breathing during sleep? STOP Results Negative 06/30/24 08:53 QUESTION #5 FULL TEXT : Do you snore loudly (louder than talking or can be heard through closed doors)? 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 Specify any problems Hx of Preganancy in last 3 N/A 06/30/24 06:18 Months Nurse Filling Out Transfusion [id number] 06/30/24 06:18 & Questions: Date: 06/30/24 06/30/24 06:18 Time: 06:24 06/30/24 06:18 Patient unable to answer at this time (ie. confused, unrespo /Reproduction History /Reproductive History - osteopathic neurologist: /Reproductive Hx- osteopathic neurologist Hx Now No 07/06/24 02:30 Gestational Age (in weeks): EDC: Hx Hx Para Hx Section SAB No 07/06/24 02:30 Active Medications Active Medications: Current Medications Generic Name Dose Route Start Last Admin Trade Name Freq PRN Reason Stop Dose Admin Acetaminophen 1,000 mg 07/01/24 14:41 07/01/24 17:19 Acetaminophen 500 Mg Tablet PO 1,000 mg Q8H PRN PRN Administration Pain 1-10 or Fever Al Hydroxide/Mg Hydroxide 15 ml 07/01/24 14:37 07/04/24 14:13 Mag Hydrox/Al Hydrox/Simeth 30 Ml Udc PO 15 ml Q4H PRN PRN Administration DYSPEPSIA Sodium Hypochlorite 473 ml/ 0 ml 06/30/24 10:45 07/05/24 09:14 Sodium Chloride 473 ml IRRIGATION Not Given UD EMMANUEL Enoxaparin Sodium 40 mg 06/30/24 10:00 07/06/24 07:30 Enoxaparin 40 Mg/0.4 Ml Syringe SC Not Given DAILY [facility] Ferrous Sulfate 325 mg 06/30/24 12:00 07/05/24 09:14 Ferrous Sulfate 325 Mg Tablet PO 325 mg DAILY@1200 EMMANUEL Administration Gentamicin Sulfate 1 each 07/02/24 12:36 Gentamicin Iv-Pharmacy To Dose 1 Each Each IV PRN PRN Rx to Dose Protocol Sodium Chloride 100 mls @ 15 mls/hr 06/30/24 10:07 07/05/24 17:53 IV 0 mls/hr .Q6H40M PRN Infusion Saline Flush Sodium Chloride 100 mls @ 15 mls/hr 06/30/24 10:07 IV .Q6H40M PRN Additional IVPB Infusion Vancomycin IV-PHARMACY TO DOSE 500 mls @ 250 mls/hr 07/02/24 12:36 1 each/ Sodium Chloride IV PRN PRN Rx to Dose Protocol Gentamicin Sulfate 310 mg/ 57.75 mls @ 115.5 mls/hr 07/03/24 15:30 07/05/24 16:48 Dextrose IVPB Infused Q24H EMMANUEL Infusion Vancomycin HCl 750 mg/ Sodium 265 mls @ 250 mls/hr 07/05/24 22:00 07/06/24 10:11 Chloride IV 250 mls/hr Q12H EMMANUEL Administration Levetiracetam 500 mg 06/30/24 22:00 07/06/24 08:05 Levetiracetam 500 Mg Tablet PO 500 mg BID EMMANUEL Administration Metronidazole 500 mg 07/02/24 14:00 07/06/24 05:55 Metronidazole 500 Mg Tablet PO Not Given TID [facility] Nutritional Formula (Lactose Free) 120 ml 07/05/24 10:00 07/06/24 07:30 Ensure Plus High Protein 120 Ml Liquid PO Not Given 4X/DAY [facility] Ondansetron HCl 4 mg 07/04/24 14:30 07/05/24 09:36 Ondansetron 4 Mg/2 Ml Vial IV 4 mg Q6H PRN PRN Administration NAUSEA/VOMITING Pantoprazole Sodium 40 mg 07/05/24 11:40 07/06/24 08:05 Pantoprazole Sodium 40 Mg Tablet PO 40 mg BID EMMANUEL Administration Prochlorperazine Edisylate 5 mg 07/05/24 11:36 07/05/24 17:52 Prochlorperazine 10 Mg/2 Ml Vial IV 5 mg Q4H PRN PRN Administration NAUSEA/VOMITING Sodium Chloride 10 - 40 ml 06/30/24 10:07 07/06/24 10:12 0.9% Saline Lock 10 Ml Syringe IV 20 ml UD PRN Administration SALINE FLUSH Vancomycin Protocol 1 lab 07/07/24 07:30 Vancomycin Trough/Random Due MC 07/07/24 11:30 DAILY EMMANUEL PFSH Medical History Open wound Low iron Gastric reflux Methicillin resistant Staphylococcus epidermidis infection Cognitive decline Anxiety Psoriasis Uses wheelchair Kidney stone Seizures Incontinence of bowel Heartburn Non-smoker History of edema Hx of spina bifida Stage IV pressure ulcer of sacral region Congenital hip dysplasia Home Medications ?Medication ?Instructions ?Recorded ?Last Taken ?Type ferrous sulfate 325 mg (65 mg 325 mg PO DAILY@1200 90 days #90 01/31/23 Unknown Rx iron) tablet (FeroSul) tabs levetiracetam 500 mg tablet 500 mg PO BID #60 tabs 03/27/23 06/29/24 03:30 Rx (Keppra) catheter 14 Fr (Bard Coude Tip #120 ea 04/02/23 Unknown Rx Catheter) potassium 99 mg tablet 99 mg PO DAILY SUPPLEMENT 06/30/24 Unknown History Allergy/AdvReac Type Severity Reaction Status Date / Time latex Allergy Hives Verified 06/30/24 06:15 Penicillins Allergy Nausea/Vom/ Verified 06/30/24 06:15 Diarrhea levofloxacin (From Levaquin) AdvReac Mild Nausea/Vom/ Verified 06/30/24 06:15 Diarrhea Family History Other No significant family history Surgical History H/O bilateral hip replacements Colostomy in place Presence of urostomy S/P flap graft Ventricular shunt in place Social History household members: family current occupational status: disabled Smoking Status: Never smoker Electronic Cigarette Use: not used alcohol intake: never substance use type: does not use caffeine: Yes what type of physical activity do you participate in: none seatbelt use: always do you feel safe at home: Yes Review of Systems (Anesthesia) ROS Narrative System reviewed and no additional complaints, except as documented.
--- NOTE | 2024-07-06 12:32 | HP.PCM.SX_ITS ---
HPI - General General Date of Admission: 06/30/24 HPI Narrative INESSA ADAMES, is a 28 M who presents for reconstruction of his sacral wound. Current Encounter (DATE OF SURGERY H&P UPDATE): I saw and examined the patient this morning in pre-operative holding. We discussed risks and benefits of today's surgery and they would like to proceed. NO CHANGE in health history since last seen and evaluated. Ready to proceed with surgery. [facility] Medical History Open wound Low iron Gastric reflux Methicillin resistant Staphylococcus epidermidis infection Cognitive decline Anxiety Psoriasis Uses wheelchair Kidney stone Seizures Incontinence of bowel Heartburn Non-smoker History of edema Hx of spina bifida Stage IV pressure ulcer of sacral region Congenital hip dysplasia Home Medications ?Medication ?Instructions ?Recorded ?Last Taken ?Type ferrous sulfate 325 mg (65 mg 325 mg PO DAILY@1200 90 days #90 01/31/23 Unknown Rx iron) tablet (FeroSul) tabs levetiracetam 500 mg tablet 500 mg PO BID #60 tabs 03/27/23 06/29/24 03:30 Rx (Keppra) catheter 14 Fr (Bard Coude Tip #120 ea 04/02/23 Unknown Rx Catheter) potassium 99 mg tablet 99 mg PO DAILY SUPPLEMENT 06/30/24 Unknown History Allergy/AdvReac Type Severity Reaction Status Date / Time latex Allergy Hives Verified 06/30/24 06:15 Penicillins Allergy Nausea/Vom/ Verified 06/30/24 06:15 Diarrhea levofloxacin (From Levaquin) AdvReac Mild Nausea/Vom/ Verified 06/30/24 06:15 Diarrhea Family History Other No significant family history Surgical History H/O bilateral hip replacements Colostomy in place Presence of urostomy S/P flap graft Ventricular shunt in place Social History household members: family current occupational status: disabled Smoking Status: Never smoker Electronic Cigarette Use: not used alcohol intake: never substance use type: does not use caffeine: Yes what type of physical activity do you participate in: none seatbelt use: always do you feel safe at home: Yes Vital Signs Vital Signs Vital Signs: 07/05/24 14:29 07/05/24 14:39 07/05/24 21:19 Temperature 98.7 F 97.8 F Temperature Source Oral Oral Pulse Rate 101 H 97 Pulse Strength Respiratory Rate 18 18 Respiratory Effort Normal Respiratory Depth Respiratory Pattern Blood Pressure 108/65 123/62 H Blood Pressure Mean 79 82 Blood Pressure Source Monitor Monitor Blood Pressure Position Semi-Fowlers Semi-Fowlers Blood Pressure Location Right Arm Right Arm Pulse Ox 96 97 Oxygen Delivery Method Room Air Room Air Oxygen Flow Rate (L/min) 07/05/24 21:32 07/05/24 22:00 07/06/24 03:52 Temperature 97.5 F L Temperature Source Oral Pulse Rate 93 Pulse Strength Normal (2+) Respiratory Rate 18 Respiratory Effort Normal Non-Labored Respiratory Depth Normal Respiratory Pattern Normal Blood Pressure 99/56 L Blood Pressure Mean 70 Blood Pressure Source Monitor Blood Pressure Position Semi-Fowlers Blood Pressure Location Right Arm Pulse Ox 98 Oxygen Delivery Method Room Air Room Air Oxygen Flow Rate (L/min) 07/06/24 07:56 07/06/24 10:10 07/06/24 12:07 Temperature 98.5 F 98.5 F Temperature Source Oral Pulse Rate 102 H 102 H Pulse Strength Normal (2+) Respiratory Rate 18 18 Respiratory Effort Respiratory Depth Respiratory Pattern Blood Pressure 114/44 L 114/44 L Blood Pressure Mean 67 Blood Pressure Source Monitor Blood Pressure Position Semi-Fowlers Blood Pressure Location Right Arm Pulse Ox 99 99 Oxygen Delivery Method Room Air Room Air Oxygen Flow Rate (L/min) 3 Weight Weight: 136 lb 3.931 oz Body Mass Index (BMI) 18.4 Physical Exam Narrative Sacral irrigating wound VAC working well. Meliza wound is clear. Const alert, oriented x3 and no apparent distress General Appearance: cooperative Orientation / Consciousness: awake HEENT normocephalic Eyes General Eye: normal appearance of both eyes Neck full ROM Resp normal respiratory effort and normal air movement Effort and Inspection: able to speak in complete sentences Cardio regular rate and regular rhythm GI GI Narrative: Soft abdomen, benign. Ostomy productive with normal, formed stool. Extremity normal capillary refill Neuro oriented x3 Sensorium / Orientation: awake and alert Psych thought process normal and cooperative Results Lab / Micro Data 07/06/24 05:42 07/06/24 05:42 Labs: Laboratory Results - last 24 hr 07/05/24 12:20: Vancomycin Trough 24.6 H 07/05/24 21:05: Random Vancomycin 15.6 H 07/06/24 05:42: WBC 8.2, RBC 4.06 L, Hgb 8.1 L, Hct 27.9 L, MCV 68.7 L, MCH 20.0 L, MCHC 29.0 L, RDW Std Deviation 47.8 H, RDW Coeff of Cathy 20.5 H, Plt Count 326, MPV 8.6, APTT 43.4 H, Sodium 138, Potassium 3.2 L, Chloride 111 H, Carbon Dioxide 21.0, Anion Gap 7, BUN 7, Creatinine 0.75, Estim Creat Clear Calc 125.89, Est GFR (MDRD) Af Amer 158, Est GFR (MDRD) Non-Af 130, BUN/Creatinine Ratio 9.4 L, Glucose 100, Calcium 8.4 L Micro: Microbiology 07/06/24 10:15 Stool Stool Occult Blood (LENARD) - Final Occult Blood Positive 06/30/24 Unknown Tissue - Sacral Gram Stain - Final 06/30/24 Unknown Tissue - Sacral Wound Culture - Final Staphylococcus sciuri Acinetobacter baumannii Enterococcus faecalis Corynebacterium jeikeium Corynebacterium striatum Kocuria rosea Staphylococcus epidermidis 06/30/24 Unknown Tissue - Sacral Anaerobic Culture - Final No anaerobic bacteria isolated. Assessment & Plan Assessment/Plan (1) Sacral osteomyelitis: (2) Decubitus ulcer of sacral area: QUALIFIERS: Pressure injury stage: stage 4 Qualified Code(s): L 89.154 - Pressure ulcer of sacral region, stage 4 PLAN: Plan I talked the patient extensively about the risks of surgery, including bleeding, infection, damage to surrounding structures, surgical site dehiscence and wound formation, need for wound care, need for repeat operations, flap failure, need for wound care, larger wound, failure to obtain the desired result, DVT/PE, and the risks of anesthesia including . The benefits and alternatives of this surgery were also discussed. All of their questions were answered, and they agreed to proceed with surgery. I talked to the patient about positioning restrictions again today. I talked to medicine about the positive Hemoccult test. They think that it is more of anemia of chronic disease, but will engage with GI. Hgb stable today. F/u CBC in the AM I talked to infectious disease an d they're in agreement with flap closure today for the sacral wound with plan to treat sacral osteomyelitis with IV antibiotics. Plan for surgery today.
--- NOTE | 2024-07-06 15:39 | PCM.POST.ANE ---
Anesthesia: Postop Eval I Current Vital Signs Temperature: 97.3 F Pulse Rate: 85 Blood Pressure: 116/82 Respiratory Rate: 20 Pulse Ox: 99 Assessment Airway patent: Yes Spontaneous unlabored respirations: Yes nausea: No Vomiting: No Anesthesia Complication: No Fluid Hydration Crystalloid volume administer (ml): 700 Total IV fluid infused: 700 Progress Note Anesthesia document: Postop Eval 1 completed: Yes
--- NOTE | 2024-07-06 16:13 | OP.PCM_ITS ---
Operative Report (Standard) Operative Information Date of Procedure: 07/06/24 Pre-Operative Diagnosis: Sacral wound Post-Operative Diagnosis: Same Surgery/Procedure Performed: 1) Surgical preparation/excision of sacral wound vacuum applicator operator: Yes Pressfitter: Maryan Meyers Tasks completed by research program assistant: Retracting Type of Anesthesia: General/Supplemental (with 10 cc of 0.25% Marcaine with 1:20 0,000 epinephrine) RN Documented Start/Stop Times: Operation Date: 07/06/24 12:30 Case Time Into Pre-Op 07/06/24 11:24 Out of Pre-Op 07/06/24 13:21 Anesthesia Start 07/06/24 13:22 Into Room 07/06/24 13:22 Procedure Start 07/06/24 14:03 Procedure End 07/06/24 15:24 Anesthesia End 07/06/24 15:34 Out of Room 07/06/24 15:34 Into Recovery 07/06/24 15:37 Out of Recovery 07/06/24 16:32 Procedure Start Time: 14:03 Procedure Stop Time: 15:24 Select all DRAINS/GRAFTS/IMPLANTS that apply: Drains (2 19 Fr nick drains ) Drain details: Left drain deep over sacrum, right drain draining the donor site Estimated Blood Loss: 50 cc Specimen collected: Yes Description of specimen(s) removed: Culture of bone and deep soft tissues Description of surgery: Indications: Latonya Perez is a 28-year-old male with history of a chronic sacral ulcer secondary to immobilization from his spina bifida. He has had V to Y advancement flaps in the remote past, and the ulcer developed between the flaps in the midline. He has MRI evidence of osteomyelitis as well as culture proven osteomyelitis from debridement last week. He has been on broad-spectrum antibiotics for polymicrobial osteomyelitis and deep soft tissue infection. Since the wound has been debrided last week, he has been inpatient with the [facility] gating wound VAC using Dakin's. I spoke with infectious disease and they agreed that flap coverage of the bone would be reasonable at this time as they are treating the underlying infection with the correct antibiotic and anticipate 6 full weeks of antibiotic. I talked to the patient and his mother about the risks, benefits, and alternatives of reconstruction. He has been working hard to optimize his nutrition and pressure offload. He would like flap reconstruction and understands that there is no guarantee that this will work, and we could turn a larger wound into a smaller wound, or even turn a large wound into a larger wound. They understand the risks of bleeding, infection, damage to surrounding structures, and poor result overall requiring more operations. They also understand the risk of anesthesia including . Procedure details: The patient was correctly identified in preoperative holding and taken back to the operating room he was administered general anesthesia and flipped in the prone position with care taken to pad all bony prominences and protect the face and eyes. A timeout was performed. He was prepped and draped in sterile fashion. 10 cc of the above-noted local solution was injected into the wound. The wound was excised with a 10 blade scalpel, rongeur, curette, and curved Florian scissors, with care taken to remove bone at the base of the wound (only a small layer was removed as the base of the wound had viable bone that was demonstrating pinpoint bleeding). The edges of the wound were freshened up with a 10 blade scalpel. The wound measured 10 x 5 cm. The wound was then washed out with 3 L normal saline and 450 cc of Irrisept. Cultures of the bone and deep soft tissue were taken. A backcut was then made with a 10 blade scalpel on the previous right sided V to Y advancement flap on the superior side to the apex of the flap laterally making a slight backcut a few centimeters proximally on the lower limb of the V to Y incision. Dissection was then taken out with Bovie electrocautery down to the fascia of the gluteal muscle and the fascia was incised so as to rotate advance the flap medially into position over the sacrum. The total area of flap movement and undermined was 21 x 13 cm. Hemostasis was obtained with Bovie electrocautery. A 19 Serbian Nick drain was placed deep to the flap over the sacrum and then also at the flap donor site on the right lateral buttock. The drains were tunneled out laterally. The flap was then inset with 0 PDS for the deep fascial sutures followed by a 2-0 PDS in the Park's fascial/deep dermal regions, followed by 3-0 Monocryl deep dermal sutures followed by 3-0 nylon horizontal mattress sutures. The drains are holding suction at the end of the case. An incisional wound VAC was placed. The placement tolerated the procedure well and was awakened and taken the PACU in stable condition. Postoperative plan: Patient was seen and evaluated in the PACU. Care was taken to ensure that he was on his side and pressure offloading the flap. I discussed this extensively with the nursing team and they were in agreement. Continue strict pressure offloading on her bed, nutrition consult, postop CBC. Surgical Findings: Healthy appearing and feeling (no sequestrum) bone at the base of the wound. Bone was bleeding (pinpoint bleeding) after excision. Complications Complications: No Admit VTE Documentation VTE Mechan Device Prophylaxis: SCD's
[2024-07-06] MEDS: Gentamicin IV 310 MG in Dextrose 5%-Water (50mL Bag) 50 ML 115.5 MG IVPB (17:01)
[2024-07-06] MEDS: Ferrous Sulfate 325 MG Tablet PO (17:01)
[2024-07-06] MEDS: metroNIDAZOLE 500 MG Tablet PO ×2 (17:01→21:00)
[2024-07-06] MEDS: 0.9% Normal Saline (100mL Bag) 100 ML 15 ML IV (17:02)
[2024-07-06 17:17] LABS: Hematocrit 28.7 % (40-54); Mean Corp Hgb Conc 27.9 g/dL (32-36); Mean Corpuscular Hgb 19.6 pg (27.0-32.0); Mean Corpuscular Volume 70.3 fL (80-94); Mean Platelet Vol. 8.4 fl (6.2-12.0); POSITIVE MORPHOLOGY YES; Platelet Count 302 K/mm3 (150-450); RBC Distribution Width CV 20.8 % (11.6-14.6); RBC Distribution Width SD 49.1 fl (35.1-43.9); Red Blood Count 4.08 M/mm3 (4.6-6.2); White Blood Count 8.3 K/mm3 (4.4-11.0)
--- NOTE | 2024-07-06 17:49 | EKG12_ITS ---
Test Reason : CHEST PAIN Blood Pressure : */* mmHG Vent. Rate : 103 BPM Atrial Rate : 103 BPM P-R Int : 118 ms QRS Dur : 82 ms QT Int : 328 ms P-R-T Axes : 44 72 34 degrees QTcB Int : 429 ms Sinus tachycardia Otherwise normal ECG When compared with ECG of 29-Jan-2023 12:16, No significant change was found Confirmed by NAA RUVALCABA, VAL ([id number]), primer expeditor and drier JETHRO ARTEAGA ([id number]) on 07/12/2024 2:15:30 PM Referred By: Myron Rodriguez Confirmed By: VAL JACOME MD
[2024-07-06 17:50] LABS: Scan Indicated on CBC? Y/N YES- FLAGS NOTED
--- NOTE | 2024-07-06 18:45 | NURSING ---
Evan drain stripped
[2024-07-06] MEDS: Acetaminophen 500 MG Tablet 1000 MG PO (21:01)
[2024-07-07 01:09] VITALS: BP 91/50; PULSE 93; RESP 16; TEMP 36.7; O2SAT 100
[2024-07-07 05:09] VITALS: BP 92/58; PULSE 89; RESP 14; TEMP 36.9; O2SAT 100
[2024-07-07] MEDS: metroNIDAZOLE 500 MG Tablet PO ×3 (05:32→23:12)
[2024-07-07 05:34] LABS: Hematocrit 26.8 % (40-54); Hemoglobin 7.6 g/dL (13.0-16.5); Mean Corp Hgb Conc 28.4 g/dL (32-36); Mean Corpuscular Hgb 20.3 pg (27.0-32.0); Mean Corpuscular Volume 71.7 fL (80-94); Mean Platelet Vol. 8.8 fl (6.2-12.0); POSITIVE MORPHOLOGY YES; Platelet Count 294 K/mm3 (150-450); RBC Distribution Width CV 21.1 % (11.6-14.6); RBC Distribution Width SD 50.3 fl (35.1-43.9); Red Blood Count 3.74 M/mm3 (4.6-6.2)
[2024-07-07 05:53] LABS: Anion Gap 7 (5-15); BUN 7 mg/dL (7-18); BUN/Creat Ratio 8.3 RATIO (10-20); Calcium,Total 7.6 mg/dL (8.5-10.1); Chloride 111 mmol/L (98-107); Creatinine, Serum 0.84 mg/dL (0.70-1.30); EST Glomerular Filtration Rate 113 mL/min (>60); Est Glom Filt Rate - Afr Amer 137 mL/min (>60); Glucose 92 mg/dL (74-106); Potassium 3.9 mmol/L (3.5-5.1); Sodium Level 137 mmol/L (136-145)
[2024-07-07 06:00] LABS: Scan Indicated on CBC? Y/N YES- FLAGS NOTED
--- NOTE | 2024-07-07 07:22 | PN.HOSP_ITS ---
Reason for Visit Reason for Visit: Diagnoses Iron deficiency anemia, unspecified (06/30/24) Pressure ulcer of sacral region, stage 4 (06/30/24) Osteomyelitis of vertebra, sacral and sacrococcygeal region (06/30/24) Subjective Subjective Feeling well. Less nausea overall. Objective Data Objective Data Vital Signs: Vital Signs Temp Pulse Resp BP Pulse Ox O2 Del Method O2 Flow Rate 36.9 C 89 14 92/58 L 100 Room Air 2 07/07/24 05:09 07/07/24 05:09 07/07/24 05:09 07/07/24 05:09 07/07/24 05:09 07/07/24 05:09 07/06/24 15:55 Oxygen Flow Rate (L/min) 2 Oxygen Delivery Method Room Air Weight: 61.8 kg Body Mass Index (BMI) 18.4 Intake & Output: Intake and Output for Last 24 Hours 07/05/24 07/06/24 07/07/24 23:59 23:59 23:59 Intake Total 2279.13 / 2279.13 708.00 / 1008.00 899.75 / 899.75 Output Total 2250 / 2250 1070 / 1670 1500 / 1500 Balance 29.13 / 29.13 -362.00 / -662.00 -600.25 / -600.25 Lab / Micro Data 07/07/24 05:15 07/07/24 05:15 Labs: Laboratory Results - last 24 hr 07/06/24 17:07: WBC 8.3, RBC 4.08 L, Hgb 8.0 L, Hct 28.7 L, MCV 70.3 L, MCH 19.6 L, MCHC 27.9 L, RDW Std Deviation 49.1 H, RDW Coeff of Cathy 20.8 H, Plt Count 302, MPV 8.4 Micro: Microbiology 07/06/24 10:15 Stool Stool Occult Blood (LENARD) - Final Occult Blood Positive 06/30/24 Unknown Tissue - Sacral Gram Stain - Final 06/30/24 Unknown Tissue - Sacral Wound Culture - Final Staphylococcus sciuri Acinetobacter baumannii Enterococcus faecalis Corynebacterium jeikeium Corynebacterium striatum Kocuria rosea Staphylococcus epidermidis 06/30/24 Unknown Tissue - Sacral Anaerobic Culture - Final No anaerobic bacteria isolated. 06/30/24 Unknown Bone - Sacral Bone Gram Stain - Final 06/30/24 Unknown Bone - Sacral Bone Wound Culture - Final Acinetobacter baumannii Staphylococcus sciuri Staphylococcus epidermidis Corynebacterium jeikeium 06/30/24 Unknown Bone - Sacral Bone Anaerobic Culture - Final No anaerobic bacteria isolated. Physical Exam Const alert and no apparent distress HEENT head/scalp atraumatic and moist oral mucous membranes Resp normal respiratory effort, no retractions, no use of accessory muscles and clear to auscultation bilaterally Cardio regular rate, regular rhythm, S1 normal heart sound and S2 normal heart sound GI normal to inspection, nondistended, normoactive bowel sounds, soft to palpation, non-tender and non-distended Neuro Sensorium / Orientation: awake and alert Assessment & Plan Assessment/Plan (1) Iron deficiency anemia: PLAN: Plan Iron deficiency anemia * Hg dropped from 10.4 to 8.2, but stable at 8. No transfusion indicated at this time, so will continue to monitor. (Would not transfuse unless hemoglobin is 7 or less) * on IV Ferrous gluconate through today. Continue Ferrous sulfate upon discharge. * Heme positive stool. Can follow up with GI as outpt for formal endoscopy. Stage IV coccyx pressure ulcer. * s/p Excision of sacral wound, 10.2 x 5 cm (2 cm deep down to bone), Application of irrigating negative pressure wound VAC (not disposable), >50 cm * Flap reconstruction 07/06 * ID on consult. On abx with vanc, gent and metronidazole. DC plan is for 6 weeks of meropenem and minocycline. * Cx growing Staph sciuri, Acinetobacter baumannii, Enterococcus faecalis, Corynebacterium jeikeium Chronic conditions: * seizure disorder-patient is on Keppra * spina bifida-complicates care, management, recovery, and prognosis VTE prophylaxis: SCDs. Charges/Coding Visit Charges Inpatient E&M: 59026 Subs Hosp L2
[2024-07-07 07:25] LABS: White Blood Count 8.9 K/mm3 (4.4-11.0)
[2024-07-07 09:01] VITALS: BP 94/52; PULSE 97; RESP 16; TEMP 37.3; O2SAT 100
[2024-07-07] MEDS: Enoxaparin 40 MG/0.4 ML Syringe SC (09:13)
[2024-07-07] MEDS: levETIRAcetam 500 MG Tablet PO ×2 (09:13→23:12)
[2024-07-07] MEDS: Ensure Plus High Protein 120 ML LIQUID PO ×3 (09:13→17:36)
[2024-07-07] MEDS: Pantoprazole Sodium 40 MG Tablet PO ×2 (09:14→23:13)
[2024-07-07] MEDS: Vancomycin Trough/Random Due 1 LAB MC ×2 (10:10→10:11)
[2024-07-07 10:16] LABS: Vancomycin, Trough Level 20.1 ug/mL (5.0-15.0)
--- NOTE | 2024-07-07 10:40 | PCM.RX.CS ---
Consult Antibiotic Management Pharmacy has been consulted to manage selected antibiotic: Vancomycin Type of Intervention Type of Consult: Follow-up Labs Labs: Sodium 137 mmol/L (136-145) 07/07/24 05:15 Potassium 3.9 mmol/L (3.5-5.1) 07/07/24 05:15 Chloride 111 mmol/L (98-107) H 07/07/24 05:15 Carbon Dioxide 19.0 mmol/L (21.0-32.0) L 07/07/24 05:15 Anion Gap 7 (5-15) 07/07/24 05:15 BUN 7 mg/dL (7-18) 07/07/24 05:15 Creatinine 0.84 mg/dL (0.70-1.30) 07/07/24 05:15 Est GFR (MDRD) Af Amer 137 mL/min (>60) 07/07/24 05:15 Est GFR (MDRD) Non-Af 113 mL/min (>60) 07/07/24 05:15 BUN/Creatinine Ratio 8.3 RATIO (10-20) L 07/07/24 05:15 Glucose 92 mg/dL (74-106) 07/07/24 05:15 Random Gentamicin 3.0 ug/mL 07/03/24 01:31 Vancomycin Trough 20.1 ug/mL (5.0-15.0) H 07/07/24 09:26 Random Vancomycin 15.6 ug/mL (0.0-15.0) H 07/05/24 21:05 Microbiology Microbiology: Microbiology 07/06/24 10:15 Stool Stool Occult Blood (LENARD) - Final Occult Blood Positive 06/30/24 Unknown Tissue - Sacral Gram Stain - Final 06/30/24 Unknown Tissue - Sacral Wound Culture - Final Staphylococcus sciuri Acinetobacter baumannii Enterococcus faecalis Corynebacterium jeikeium Corynebacterium striatum Kocuria rosea Staphylococcus epidermidis 06/30/24 Unknown Tissue - Sacral Anaerobic Culture - Final No anaerobic bacteria isolated. 06/30/24 Unknown Bone - Sacral Bone Gram Stain - Final 06/30/24 Unknown Bone - Sacral Bone Wound Culture - Final Acinetobacter baumannii Staphylococcus sciuri Staphylococcus epidermidis Corynebacterium jeikeium 06/30/24 Unknown Bone - Sacral Bone Anaerobic Culture - Final No anaerobic bacteria isolated. Pharmacy Plan for Drug Dosing Pharmacy Plan for Drug Dosing: VANCOMYCIN LEVEL RECEIVED Current Vancomycin Dose: 750MG Q12 Number of Doses Received: MANY Vancomycin Level: 20.1 MG/DL Hours Since Last Dose: 12.5 Renal Function: SCR 0.84 mg/dL, CrCl 112 ml/min Renal Function Trend: stable Vancomycin Plan/Comments: 12.5 hour trough is slightly supratherapeutic at 20.1mg/dL (goal 15-20). James decrease dose to 500mg Q12 and get a level prior to 4th dose of new regimen. Pending Level: 07/08/24 @ 0441 Pharmacy Service will continue to monitor and adjust dosing as required.
[2024-07-07] MEDS: Vancomycin IV 500 MG/100 ML BAG 100 MG IV ×2 (10:42→23:12)
--- NOTE | 2024-07-07 10:45 | PN.SURG_ITS ---
<Statement entered by Myron Rodriguez MD - 07/07/24 11:55> Pt seen & evaluated w/MADHAV. I personally interviewed & exam the pt. I was involved in all aspects of pt's orders, interpretation of results & treatment Patient has been off an on with compliance regarding pressure offloading. I've been talking to him frequently about no pressure on the flap and have discussed extensively with the floor nursing team. Medicine recommending outpatient GI referral (positive hemoccult). Hgb 7.6 (will monitor and transfuse if <7) F/U ID recommendations Plan for iVAC until Friday, 09 Jul 2024. THen plan DC to TCU (rehab at [place]). Subjective Subjective Postop day #1 Patient is doing well with minimal discomfort. He states that he is a little nauseated. Denies any vomiting. Objective Data Objective Data Vital Signs: Vital Signs Temp Pulse Resp BP Pulse Ox O2 Del Method O2 Flow Rate 99.1 F 97 16 94/52 L 100 Room Air 2 07/07/24 09:01 07/07/24 09:01 07/07/24 09:01 07/07/24 09:01 07/07/24 09:01 07/07/24 09:01 07/06/24 15:55 Oxygen Flow Rate (L/min) 2 Oxygen Delivery Method Room Air Weight: 136 lb 3.931 oz Body Mass Index (BMI) 18.4 Intake & Output: Intake and Output for Last 24 Hours 07/05/24 07/06/24 07/07/24 23:59 23:59 23:59 Intake Total 2279.13 / 2279.13 708.00 / 1008.00 899.75 / 899.75 Output Total 2250 / 2250 1070 / 1670 1500 / 1500 Balance 29.13 / 29.13 -362.00 / -662.00 -600.25 / -600.25 Right sacral RANJAN has had 40 ml output since placement Left sacral RANJAN has had 55 ml output since placement Lab / Micro Data Attestation: I reviewed the patient's lab results. 07/07/24 05:15 07/07/24 05:15 Labs: Laboratory Results - last 24 hr 07/06/24 17:07: WBC 8.3, RBC 4.08 L, Hgb 8.0 L, Hct 28.7 L, MCV 70.3 L, MCH 19.6 L, MCHC 27.9 L, RDW Std Deviation 49.1 H, RDW Coeff of Cathy 20.8 H, Plt Count 302, MPV 8.4 07/07/24 05:15: WBC 8.9, RBC 3.74 L, Hgb 7.6 L, Hct 26.8 L, MCV 71.7 L, MCH 20.3 L, MCHC 28.4 L, RDW Std Deviation 50.3 H, RDW Coeff of Cathy 21.1 H, Plt Count 294, MPV 8.8, Sodium 137, Potassium 3.9, Chloride 111 H, Carbon Dioxide 19.0 L, Anion Gap 7, BUN 7, Creatinine 0.84, Estim Creat Clear Calc 112.40, Est GFR (MDRD) Af Amer 137, Est GFR (MDRD) Non-Af 113, BUN/Creatinine Ratio 8.3 L, Glucose 92, Calcium 7.6 L 07/07/24 09:26: Vancomycin Trough 20.1 H Micro: Microbiology 07/06/24 10:15 Stool Stool Occult Blood (LENARD) - Final Occult Blood Positive 06/30/24 Unknown Tissue - Sacral Gram Stain - Final 06/30/24 Unknown Tissue - Sacral Wound Culture - Final Staphylococcus sciuri Acinetobacter baumannii Enterococcus faecalis Corynebacterium jeikeium Corynebacterium striatum Kocuria rosea Staphylococcus epidermidis 06/30/24 Unknown Tissue - Sacral Anaerobic Culture - Final No anaerobic bacteria isolated. 06/30/24 Unknown Bone - Sacral Bone Gram Stain - Final 06/30/24 Unknown Bone - Sacral Bone Wound Culture - Final Acinetobacter baumannii Staphylococcus sciuri Staphylococcus epidermidis Corynebacterium jeikeium 06/30/24 Unknown Bone - Sacral Bone Anaerobic Culture - Final No anaerobic bacteria isolated. Physical Exam Narrative Flap has wound VAC in place. Window on drape shows that the flap is nice pink color. Both JPs are draining serosanguineous drainage. Latonya was laying on his side, but still had pressure on the flap. Stressed importance of laying far onto either side or on abdomen to keep pressure off of his flap. Const alert General Appearance: cooperative Orientation / Consciousness: awake HEENT normocephalic Eyes General Eye: normal appearance of both eyes Neck full ROM Resp normal respiratory effort and normal air movement Effort and Inspection: able to speak in complete sentences Cardio regular rate and regular rhythm GI GI Narrative: colostomy with soft, green stool in bag. Extremity normal to inspection and normal capillary refill Neuro oriented x3 Assessment & Plan Assessment/Plan (1) Sacral osteomyelitis: (2) Decubitus ulcer of sacral area: QUALIFIERS: Pressure injury stage: stage 4 Qualified Code(s): L 89.154 - Pressure ulcer of sacral region, stage 4 PLAN: Plan Patient with minimal complaints. Stressed importance of keeping pressure off of his flap. Discussed staying way over on his side or laying on his stomach to keep pressure off his flap. Flap is nice pink color (window in the center of the drape to visualize flap. JPs are draining small amount of serosanguineous drainage. Wound VAC at 125 mmHg. Encouraged increased protein intake to help with wound healing. He has protein supplements. ID consulted for IV antibiotics for positive cultures from initial debridement. He is currently on Vancomycin, Gentamicin and Flagyl. He is being followed by medicine for his medical issues, including his anemia, which his Hgb 7.6 today, down from 8.0. Dr. Rodriguez present on rounds. Plan of care discussed. Charges/Coding Procedures Integumentary [id number]: [id number] Global Visit
[2024-07-07] MEDS: Ferrous Sulfate 325 MG Tablet PO (11:54)
[2024-07-07] MEDS: Ondansetron 4 MG/2 ML Vial IV (12:45)
--- NOTE | 2024-07-07 13:57 | PCM.PN.ID ---
Physical Exam Narrative Feeling better, on side s/p flap placement, no fever Const alert and no apparent distress General Appearance: cooperative Resp normal air movement and clear to auscultation bilaterally Cardio regular rate and regular rhythm GI soft to palpation, non-tender and non-distended Skin Skin Narrative: no new rash, drain in place ID ID: Route of nutrition/ use of supplements: [] Nutritional Intake: [] IV Site: [] Calderon Catheter: [] Assessment & Plan Assessment/Plan (1) Sacral osteomyelitis: PLAN: Taken to OR 06/30/[address] Rodriguez, surg cx with CoNS x2, AcB, e faecalis, and corynebacter so far. Has remote h/o MDR AcB and pseudomonas. Covering with vanc, gent, flagyl for now. Plan is for 6 weeks iv abx at discharge, tentative plan for IV tip and po minocycline. will follow
[2024-07-07 15:00] VITALS: BP 104/60; PULSE 96; RESP 16; TEMP 37.5; O2SAT 100
[2024-07-07] MEDS: Gentamicin IV 310 MG in Dextrose 5%-Water (50mL Bag) 50 ML 115.5 MG IVPB (16:18)
[2024-07-07 23:16] VITALS: BP 108/64; PULSE 98; RESP 16; TEMP 36.5; O2SAT 99
[2024-07-07 23:29] VITALS: PULSE 101
--- NOTE | 2024-07-08 05:49 | PCM.RX.CS ---
Consult Antibiotic Management Pharmacy has been consulted to manage selected antibiotic: Gentamicin Type of Intervention Type of Consult: Follow-up Labs Labs: Sodium 137 mmol/L (136-145) 07/07/24 05:15 Potassium 3.9 mmol/L (3.5-5.1) 07/07/24 05:15 Chloride 111 mmol/L (98-107) H 07/07/24 05:15 Carbon Dioxide 19.0 mmol/L (21.0-32.0) L 07/07/24 05:15 Anion Gap 7 (5-15) 07/07/24 05:15 BUN 7 mg/dL (7-18) 07/07/24 05:15 Creatinine 0.84 mg/dL (0.70-1.30) 07/07/24 05:15 Est GFR (MDRD) Af Amer 137 mL/min (>60) 07/07/24 05:15 Est GFR (MDRD) Non-Af 113 mL/min (>60) 07/07/24 05:15 BUN/Creatinine Ratio 8.3 RATIO (10-20) L 07/07/24 05:15 Glucose 92 mg/dL (74-106) 07/07/24 05:15 Random Gentamicin 4.0 ug/mL 07/08/24 02:15 Vancomycin Trough 20.1 ug/mL (5.0-15.0) H 07/07/24 09:26 Random Vancomycin 15.6 ug/mL (0.0-15.0) H 07/05/24 21:05 Microbiology Microbiology: Microbiology 07/06/24 14:31 Bone - Sacral Bone Gram Stain - Final 07/06/24 14:24 Tissue - Sacral Gram Stain - Final 07/06/24 10:15 Stool Stool Occult Blood (LENARD) - Final Occult Blood Positive 06/30/24 Unknown Tissue - Sacral Gram Stain - Final 06/30/24 Unknown Tissue - Sacral Wound Culture - Final Staphylococcus sciuri Acinetobacter baumannii Enterococcus faecalis Corynebacterium jeikeium Corynebacterium striatum Kocuria rosea Staphylococcus epidermidis 06/30/24 Unknown Tissue - Sacral Anaerobic Culture - Final No anaerobic bacteria isolated. 06/30/24 Unknown Bone - Sacral Bone Gram Stain - Final 06/30/24 Unknown Bone - Sacral Bone Wound Culture - Final Acinetobacter baumannii Staphylococcus sciuri Staphylococcus epidermidis Corynebacterium jeikeium 06/30/24 Unknown Bone - Sacral Bone Anaerobic Culture - Final No anaerobic bacteria isolated. Pharmacy Plan for Drug Dosing Pharmacy Plan for Drug Dosing: Pharmacy Service will continue to monitor and adjust dosing as required. RANDOM LEVEL 4 @ 10 HOURS. CHANGE TO 310MG Q36H AND DRAW RANDOM LEVEL 10 HOURS AFTER NEXT DOSE Follow-Up Labs Follow-Up Labs: Trough: Gentamicin Date/Time Labs Ordered Labs to be done on [date and time ordered]: 07/09 @ 1331
[2024-07-08] MEDS: metroNIDAZOLE 500 MG Tablet PO ×3 (06:13→22:41)
[2024-07-08 06:15] VITALS: BP 102/53; PULSE 94; RESP 16; TEMP 36.8; O2SAT 100
--- NOTE | 2024-07-08 08:05 | PN.HOSP_ITS ---
Reason for Visit Reason for Visit: Diagnoses Iron deficiency anemia, unspecified (06/30/24) Pressure ulcer of sacral region, stage 4 (06/30/24) Osteomyelitis of vertebra, sacral and sacrococcygeal region (06/30/24) Subjective Subjective Feeling well. No nausea. Eating some. Objective Data Objective Data Vital Signs: Vital Signs Temp Pulse Resp BP Pulse Ox O2 Del Method O2 Flow Rate 36.8 C 94 16 102/53 L 100 Room Air 2 07/08/24 06:15 07/08/24 06:15 07/08/24 06:15 07/08/24 06:15 07/08/24 06:15 07/08/24 06:15 07/06/24 15:55 Oxygen Flow Rate (L/min) 2 Oxygen Delivery Method Room Air Weight: 61.8 kg Body Mass Index (BMI) 18.4 Intake & Output: Intake and Output for Last 24 Hours 07/06/24 07/07/24 07/08/24 23:59 23:59 23:59 Intake Total 708.00 / 1008.00 1057.50 / 1257.50 450 / 450 Output Total 1070 / 1670 2480 / 2480 355 / 355 Balance -362.00 / -662.00 -1422.50 / -1222.50 95 / 95 Lab / Micro Data 07/07/24 05:15 07/07/24 05:15 Labs: Laboratory Results - last 24 hr 07/07/24 09:26: Vancomycin Trough 20.1 H 07/08/24 02:15: Random Gentamicin 4.0 Micro: Microbiology 07/06/24 14:31 Bone - Sacral Bone Gram Stain - Final 07/06/24 14:24 Tissue - Sacral Gram Stain - Final 07/06/24 10:15 Stool Stool Occult Blood (LENARD) - Final Occult Blood Positive 06/30/24 Unknown Tissue - Sacral Gram Stain - Final 06/30/24 Unknown Tissue - Sacral Wound Culture - Final Staphylococcus sciuri Acinetobacter baumannii Enterococcus faecalis Corynebacterium jeikeium Corynebacterium striatum Kocuria rosea Staphylococcus epidermidis 06/30/24 Unknown Tissue - Sacral Anaerobic Culture - Final No anaerobic bacteria isolated. 06/30/24 Unknown Bone - Sacral Bone Gram Stain - Final 06/30/24 Unknown Bone - Sacral Bone Wound Culture - Final Acinetobacter baumannii Staphylococcus sciuri Staphylococcus epidermidis Corynebacterium jeikeium 06/30/24 Unknown Bone - Sacral Bone Anaerobic Culture - Final No anaerobic bacteria isolated. Physical Exam Const alert and no apparent distress HEENT head/scalp atraumatic and moist oral mucous membranes Resp normal respiratory effort, no retractions, no use of accessory muscles and clear to auscultation bilaterally Cardio regular rate, regular rhythm, S1 normal heart sound and S2 normal heart sound Extremity normal to inspection, full ROM and no clubbing, cyanosis or edema Extremity Narrative: Sacral/gluteal wound covered. Wound vac in place. Neuro Sensorium / Orientation: awake and alert Assessment & Plan Assessment/Plan (1) Iron deficiency anemia: PLAN: Plan Iron deficiency anemia * Hg dropped from 10.4 to 8.2, but stable at 7.6. No transfusion indicated at this time, so will continue to monitor. (Would not transfuse unless hemoglobin is 7 or less) * Received 4 doses of ferrous gluconate. Continue Ferrous sulfate upon discharge. * Heme positive stool. Can follow up with GI as outpt for formal endoscopy. Stage IV coccyx pressure ulcer. * s/p Excision of sacral wound, 10.2 x 5 cm (2 cm deep down to bone), Application of irrigating negative pressure wound VAC (not disposable), >50 cm * Flap reconstruction 07/06 * ID on consult. On abx with vanc, gent and metronidazole. DC plan is for 6 weeks of meropenem and minocycline. * Cx growing Staph sciuri, Acinetobacter baumannii, Enterococcus faecalis, Corynebacterium jeikeium Chronic conditions: * seizure disorder-patient is on Keppra * spina bifida-complicates care, management, recovery, and prognosis VTE prophylaxis: SCDs. Charges/Coding Visit Charges Inpatient E&M: 38763 Subs Hosp L2
[2024-07-08 08:07] VITALS: BP 101/53; PULSE 91; RESP 16; TEMP 36.9; O2SAT 96
--- NOTE | 2024-07-08 08:16 | WOUNDNOTE ---
Pt currently resting in bed on left side. wound appears offloaded. good seal noted on VAC at 125mmHg. plan is for VAC change tomorrow according to notes. will continue to monitor.
[2024-07-08] MEDS: levETIRAcetam 500 MG Tablet PO ×2 (10:07→22:41)
[2024-07-08] MEDS: Vancomycin IV 500 MG/100 ML BAG 100 MG IV ×2 (10:07→22:41)
[2024-07-08] MEDS: Pantoprazole Sodium 40 MG Tablet PO ×2 (10:07→22:41)
[2024-07-08] MEDS: Enoxaparin 40 MG/0.4 ML Syringe SC (10:07)
[2024-07-08] MEDS: Ensure Plus High Protein 120 ML LIQUID PO ×3 (10:07→17:48)
--- NOTE | 2024-07-08 10:23 | PCM.PN.ID ---
Physical Exam Narrative Feeling ok, no fever, staying on his side Const alert and no apparent distress General Appearance: cooperative Resp normal air movement and clear to auscultation bilaterally Cardio regular rate and regular rhythm GI soft to palpation, non-tender and non-distended Skin Skin Narrative: no new rash ID ID: Route of nutrition/ use of supplements: [] Nutritional Intake: [] IV Site: [] Calderon Catheter: [] Assessment & Plan Assessment/Plan (1) Sacral osteomyelitis: PLAN: Taken to OR 06/30/[address] Rodriguez, surg cx with CoNS x2, AcB, e faecalis, and corynebacter so far. Has remote h/o MDR AcB and pseudomonas. Covering with vanc, gent, flagyl for now. Plan is for 6 weeks iv abx at discharge, plan for IV tip and po minocycline, stop date 08/11/24 with weekly labs and ID followup in 2 weeks. Wrote rx, d/w case management social worker. will follow
--- NOTE | 2024-07-08 10:24 | CASEMGMT ---
Addendum entered by Luly George 07/08/24 15:29: Social Work TCU is able to accept pt on Friday or Friday (depending on bed availability). Because of insurance, pt will be able to stay in TCU 20 days. IV ATBs are Q8 through 08/11. SUE met with pt and informed that pt can go to TCU for IV ATB and wound care for 20 days but this will not cover the length of IV ATB and pt will need to decide if he will finish IV ATB at home or move to another SNF for duration of IV ATB. SW also educated pt that he could go to another facility now and stay at that facility for entirety of IV ATB. Pt stating Do what you think is best. SW informed pt that SW has attempted to call mother multiple times throughout the day with no answer and VM is full. Pt sent a text message to pt mother requesting she call this SW to discuss DC. SW will continue to follow for dc planning. JAMES Emery Original Note: Social Work SW met with pt to discuss discharge plan. SW explained to pt that IV ATB's Q8 have been ordered. Pt states he has had IV ATBs at home before and it was a struggle for his mom. SW discussed option of going to SNF for short term stay. Pt is agreeable and states that TCU is first choice. SW spoke with TCU and there may not be a bed available. SW notified pt of this and attempted to review SNF list with pt. Pt requesting that SW call his mother to discuss SNF choices. Phone call to pt mother Myrna. No answer and unable to leave a VM. TCU to reveiew case and notify SW if they can accept. SUE will continue to follow for dc planning. JAMES Emery
--- NOTE | 2024-07-08 10:34 | PN.SURG_ITS ---
<Statement entered by Myron Rodriguez MD - 07/10/24 13:32> Pt seen & evaluated w/MADHAV. I personally interviewed & exam the pt. I was involved in all aspects of pt's orders, interpretation of results & treatment Subjective Subjective Latonya states he is doing well. He states he is trying hard not to put pressure on his flap. He denies pain or discomfort at this time. Objective Data Objective Data Vital Signs: Vital Signs Temp Pulse Resp BP Pulse Ox O2 Del Method O2 Flow Rate 98.5 F 91 16 101/53 L 96 Room Air 2 07/08/24 08:07 07/08/24 08:07 07/08/24 08:07 07/08/24 08:07 07/08/24 08:07 07/08/24 08:07 07/06/24 15:55 Oxygen Flow Rate (L/min) 2 Oxygen Delivery Method Room Air Weight: 136 lb 3.931 oz Body Mass Index (BMI) 18.4 Intake & Output: Intake and Output for Last 24 Hours 07/06/24 07/07/24 07/08/24 23:59 23:59 23:59 Intake Total 708.00 / 1008.00 1057.50 / 1257.50 450 / 450 Output Total 1070 / 1670 2480 / 2480 355 / 355 Balance -362.00 / -662.00 -1422.50 / -1222.50 95 / 95 Lab / Micro Data 07/07/24 05:15 07/07/24 05:15 Labs: Laboratory Results - last 24 hr 07/08/24 02:15: Random Gentamicin 4.0 Micro: Microbiology 07/06/24 14:31 Bone - Sacral Bone Gram Stain - Final 07/06/24 14:31 Bone - Sacral Bone Wound Culture - Preliminary No growth-Final to follow 07/06/24 14:24 Tissue - Sacral Gram Stain - Final 07/06/24 14:24 Tissue - Sacral Wound Culture - Preliminary No growth-Final to follow 07/06/24 10:15 Stool Stool Occult Blood (LENARD) - Final Occult Blood Positive 06/30/24 Unknown Tissue - Sacral Gram Stain - Final 06/30/24 Unknown Tissue - Sacral Wound Culture - Final Staphylococcus sciuri Acinetobacter baumannii Enterococcus faecalis Corynebacterium jeikeium Corynebacterium striatum Kocuria rosea Staphylococcus epidermidis 06/30/24 Unknown Tissue - Sacral Anaerobic Culture - Final No anaerobic bacteria isolated. 06/30/24 Unknown Bone - Sacral Bone Gram Stain - Final 06/30/24 Unknown Bone - Sacral Bone Wound Culture - Final Acinetobacter baumannii Staphylococcus sciuri Staphylococcus epidermidis Corynebacterium jevonrenettaium 06/30/24 Unknown Bone - Sacral Bone Anaerobic Culture - Final No anaerobic bacteria isolated. Physical Exam Narrative Wound VAC in place over flap. Window on drape shows that the flap is nice pink color. Both JPs are draining serosanguineous drainage. Latonya was laying on his side, and trying to keep pressure off of his flap. Const alert General Appearance: cooperative Orientation / Consciousness: awake HEENT normocephalic Eyes General Eye: normal appearance of both eyes Neck full ROM Resp normal respiratory effort and normal air movement Effort and Inspection: able to speak in complete sentences Cardio regular rate and regular rhythm GI GI Narrative: colostomy with soft, green stool in bag. Extremity normal to inspection and normal capillary refill Neuro oriented x3 Assessment & Plan Assessment/Plan (1) Decubitus ulcer of sacral area: QUALIFIERS: Pressure injury stage: stage 4 Qualified Code(s): L 89.154 - Pressure ulcer of sacral region, stage 4 (2) Sacral osteomyelitis: PLAN: Plan Patient with no complaints at this time. He has been trying to keep pressure off of his flap site. Continue wound VAC at 125 mm Hg. Encouraged increased protein intake to help with wound healing. He has protein supplements. ID consulted for IV antibiotics for positive cultures from initial debridement. He is currently on Vancomycin, Gentamicin and Flagyl. He is being followed by medicine for his medical issues, including his anemia, which his Hgb stable at 7.[address] Rodriguez present on rounds. Plan of care discussed.
--- NOTE | 2024-07-08 11:26 | WOUNDNOTE ---
Ostomy appliance changed per pt request. pt has own supplies that he prefers we use. Pt denies further needs at this time.
[2024-07-08] MEDS: Ferrous Sulfate 325 MG Tablet PO (11:42)
--- NOTE | 2024-07-08 16:12 | CHAPLAIN ---
Type of Pastoral Visit ___ Initial Visit _x__ Follow-up Visit ___ On-call Visit ___ General Patient Visit ___ Spiritual Assessment ___ Family Conference ___ Bereavement ___ Rapid Response ___ Code Blue ___ Other (describe below) Pastoral Care Referral From _x__ Patient ___ Family ___ Nurse ___ Physician ___ Dog Track Kennel Manager ___ Marketing Support Assistant ___ Other (describe below) Sacrament/Intervention _x__ Active listening ___ Anointing ___ Taoist ___ Bereavement ___ Communion ___ Clementina exploration ___ ___ Life review _x__ Prayer ___ Reconciliation ___ Sacrament of Sick ___ Supportive presence ___ Wedding ___ Other (describe below) Pastoral Comments patient gives updates on his health recovery; pt talks about life and his thoughts; pt welcomes presence and prayer again today for support
[2024-07-08 22:06] LABS: Vancomycin, Trough Level 14.9 ug/mL (5.0-15.0)
--- NOTE | 2024-07-08 22:34 | PCM.RX.CS ---
Consult Antibiotic Management Pharmacy has been consulted to manage selected antibiotic: Vancomycin Type of Intervention Type of Consult: Follow-up Labs Labs: Sodium 137 mmol/L (136-145) 07/07/24 05:15 Potassium 3.9 mmol/L (3.5-5.1) 07/07/24 05:15 Chloride 111 mmol/L (98-107) H 07/07/24 05:15 Carbon Dioxide 19.0 mmol/L (21.0-32.0) L 07/07/24 05:15 Anion Gap 7 (5-15) 07/07/24 05:15 BUN 7 mg/dL (7-18) 07/07/24 05:15 Creatinine 0.84 mg/dL (0.70-1.30) 07/07/24 05:15 Est GFR (MDRD) Af Amer 137 mL/min (>60) 07/07/24 05:15 Est GFR (MDRD) Non-Af 113 mL/min (>60) 07/07/24 05:15 BUN/Creatinine Ratio 8.3 RATIO (10-20) L 07/07/24 05:15 Glucose 92 mg/dL (74-106) 07/07/24 05:15 Random Gentamicin 4.0 ug/mL 07/08/24 02:15 Vancomycin Trough 14.9 ug/mL (5.0-15.0) 07/08/24 21:27 Random Vancomycin 15.6 ug/mL (0.0-15.0) H 07/05/24 21:05 Microbiology Microbiology: Microbiology 07/06/24 14:31 Bone - Sacral Bone Gram Stain - Final 07/06/24 14:31 Bone - Sacral Bone Wound Culture - Preliminary No growth-Final to follow 07/06/24 14:24 Tissue - Sacral Gram Stain - Final 07/06/24 14:24 Tissue - Sacral Wound Culture - Preliminary No growth-Final to follow 07/06/24 10:15 Stool Stool Occult Blood (LENARD) - Final Occult Blood Positive 06/30/24 Unknown Tissue - Sacral Gram Stain - Final 06/30/24 Unknown Tissue - Sacral Wound Culture - Final Staphylococcus sciuri Acinetobacter baumannii Enterococcus faecalis Corynebacterium jeikeium Corynebacterium striatum Kocuria rosea Staphylococcus epidermidis 06/30/24 Unknown Tissue - Sacral Anaerobic Culture - Final No anaerobic bacteria isolated. 06/30/24 Unknown Bone - Sacral Bone Gram Stain - Final 06/30/24 Unknown Bone - Sacral Bone Wound Culture - Final Acinetobacter baumannii Staphylococcus sciuri Staphylococcus epidermidis Corynebacterium skipium 06/30/24 Unknown Bone - Sacral Bone Anaerobic Culture - Final No anaerobic bacteria isolated. Goal Trough Goal Trough: 15-20 mcg/mL Pharmacy Plan for Drug Dosing Pharmacy Plan for Drug Dosing: Pharmacy Service will continue to monitor and adjust dosing as required. TROUGH 14.9 @ 11.5 HOURS. NO CHANGES, FOLLOW UP TROUGH IN 2 DAYS Follow-Up Labs Follow-Up Labs: Trough: Vancomycin Date/Time Labs Ordered Labs to be done on [date and time ordered]: 07/10 @ 7330
[2024-07-08] MEDS: Vancomycin Trough/Random Due 1 LAB MC (22:42)
[2024-07-08 22:46] VITALS: BP 109/58; PULSE 100; RESP 16; TEMP 37.6; O2SAT 100
[2024-07-09] VITALS (7 sets, daily range): BP systolic 96–130; BP diastolic 44–77; PULSE 87–100; RESP 14–19; TEMP 36.6–37.6; O2SAT 100
[2024-07-09] MEDS: Gentamicin IV 310 MG in Dextrose 5%-Water (50mL Bag) 50 ML 115.5 MG IVPB (03:23)
[2024-07-09] MEDS: metroNIDAZOLE 500 MG Tablet PO ×3 (05:23→20:50)
--- NOTE | 2024-07-09 07:09 | PN.HOSP_ITS ---
Reason for Visit Reason for Visit: Diagnoses Iron deficiency anemia, unspecified (06/30/24) Pressure ulcer of sacral region, stage 4 (06/30/24) Osteomyelitis of vertebra, sacral and sacrococcygeal region (06/30/24) Subjective Subjective Feeling ok. Trying to lie on his side. Objective Data Objective Data Vital Signs: Vital Signs Temp Pulse Resp BP Pulse Ox O2 Del Method O2 Flow Rate 37.1 C 87 16 107/63 100 Room Air 2 07/09/24 03:26 07/09/24 03:26 07/09/24 03:26 07/09/24 05:24 07/09/24 03:26 07/09/24 03:26 07/06/24 15:55 Oxygen Flow Rate (L/min) 2 Oxygen Delivery Method Room Air Weight: 61.8 kg Body Mass Index (BMI) 18.4 Intake & Output: Intake and Output for Last 24 Hours 07/07/24 07/08/24 07/09/24 23:59 23:59 23:59 Intake Total 1057.50 / 1257.50 650 / 850 257.75 / 257.75 Output Total 2480 / 2480 1030 / 1530 530 / 530 Balance -1422.50 / -1222.50 -380 / -680 -272.25 / -272.25 Lab / Micro Data 07/07/24 05:15 07/07/24 05:15 Labs: Laboratory Results - last 24 hr 07/08/24 21:27: Vancomycin Trough 14.9 Micro: Microbiology 07/06/24 14:31 Bone - Sacral Bone Gram Stain - Final 07/06/24 14:31 Bone - Sacral Bone Wound Culture - Preliminary No growth-Final to follow 07/06/24 14:24 Tissue - Sacral Gram Stain - Final 07/06/24 14:24 Tissue - Sacral Wound Culture - Preliminary No growth-Final to follow 07/06/24 10:15 Stool Stool Occult Blood (LENARD) - Final Occult Blood Positive 06/30/24 Unknown Tissue - Sacral Gram Stain - Final 06/30/24 Unknown Tissue - Sacral Wound Culture - Final Staphylococcus sciuri Acinetobacter baumannii Enterococcus faecalis Corynebacterium jeikeium Corynebacterium striatum Kocuria rosea Staphylococcus epidermidis 06/30/24 Unknown Tissue - Sacral Anaerobic Culture - Final No anaerobic bacteria isolated. 06/30/24 Unknown Bone - Sacral Bone Gram Stain - Final 06/30/24 Unknown Bone - Sacral Bone Wound Culture - Final Acinetobacter baumannii Staphylococcus sciuri Staphylococcus epidermidis Corynebacterium jeikeium 06/30/24 Unknown Bone - Sacral Bone Anaerobic Culture - Final No anaerobic bacteria isolated. Physical Exam Const alert and no apparent distress HEENT head/scalp atraumatic and moist oral mucous membranes Resp normal respiratory effort, no retractions, no use of accessory muscles and clear to auscultation bilaterally Cardio regular rate, regular rhythm, S1 normal heart sound and S2 normal heart sound GI normal to inspection, nondistended, normoactive bowel sounds and soft to palpation Extremity normal to inspection and full ROM Neuro Sensorium / Orientation: awake and alert Assessment & Plan Assessment/Plan (1) Iron deficiency anemia: PLAN: Plan Iron deficiency anemia * Hg dropped from 10.4 to 8.2, but stable at 7.6. No transfusion indicated at this time, so will continue to monitor. (Would not transfuse unless hemoglobin is 7 or less) * Received 4 doses of ferrous gluconate. Continue Ferrous sulfate upon discharge. * Heme positive stool. Can follow up with GI as outpt for formal endoscopy. Stage IV coccyx pressure ulcer. * s/p Excision of sacral wound, 10.2 x 5 cm (2 cm deep down to bone), Application of irrigating negative pressure wound VAC (not disposable), >50 cm * Flap reconstruction 07/06 * ID on consult. On abx with vanc, gent and metronidazole. DC plan is for 6 weeks of meropenem and minocycline. * Cx growing Staph sciuri, Acinetobacter baumannii, Enterococcus faecalis, Corynebacterium jeikeium Chronic conditions: * seizure disorder-patient is on Keppra * spina bifida-complicates care, management, recovery, and prognosis VTE prophylaxis: SCDs. Medically stable for disdcharge Charges/Coding Visit Charges Inpatient E&M: 53745 Subs Hosp L2
[2024-07-09] MEDS: Ensure Plus High Protein 120 ML LIQUID PO ×3 (09:39→17:41)
[2024-07-09] MEDS: Enoxaparin 40 MG/0.4 ML Syringe SC (09:39)
[2024-07-09] MEDS: levETIRAcetam 500 MG Tablet PO ×2 (09:39→20:50)
[2024-07-09] MEDS: Pantoprazole Sodium 40 MG Tablet PO ×2 (09:39→20:51)
[2024-07-09] MEDS: Vancomycin IV 500 MG/100 ML BAG 100 MG IV ×2 (09:39→20:50)
[2024-07-09] MEDS: 0.9% Saline Lock 10 ML Syringe IV (09:40)
--- NOTE | 2024-07-09 11:50 | WOUNDNOTE ---
wound photo: sacrum
[2024-07-09] MEDS: Ferrous Sulfate 325 MG Tablet PO (11:58)
--- NOTE | 2024-07-09 12:06 | CASEMGMT ---
Addendum entered by uLly George 07/09/24 15:27: Social Work SW attempted to call pt mother again with no answer, VM full. SW met with pt who confirms SW has correct phone number for mother. Pt then called mother with an answer and mother put on speaker phone. Discharge options presented. Mother requesting discharge to TCU and is understanding that at day 21, pt will need to dc home with home antibiotics or transfer to another facility to finish IV ATB. TCU notified that pt will be coming tomorrow. Green Sheet placed on chart to facilitate weekend discharge. Plan: TCU, Friday JAMES Emery Original Note: Social Work Calls to pt mother at 0845 and 1130 with no answer and VM not set up. 4 calls throughout the day yesterday to mother with same results. Yesterday, pt texted his mother with this SW number and request to call the SW however, SW received no call. SW spoke with physician and pt is ready for dc today. SW spoke with TCU and a bed will be available tomorrow. Physician notified and understanding. SW met with pt and presented dc options. Explained that TCU can accept pt tomorrow. Pt is unwilling to commit to this discharge plan stating SW needs to speak with pt's mother for decision making on dc plan. Pt states his mother will be in sometime today, but does not know when. SW requested pt call for this SW when mother gets here. Pt agreeable. SW to follow up of for dc planning. JAMES Emery
--- NOTE | 2024-07-09 12:51 | TREXTCAR_ITS ---
<Statement entered by Myron Rodriguez MD - 07/10/24 13:32> Pt seen & evaluated w/MADHAV. I personally interviewed & exam the pt. I was involved in all aspects of pt's orders, interpretation of results & treatment Diet Diet Order/Speech Therapy: 07/06/24 16:13 Diet: Regular - General Routine Orders/Code Status Routine Lab Work: CBC and BMP Code Status: Full Code DC O2, CPAP, BIPAP needs Home O2 Discharge instructions: No Wound(s) SACRUM: Wound Type: surgical incision s/p muscle flap Dressing Change: Dry Sterile Dressing NAHEED LOWER EXT: Wound Type: SCABS RIGHT SARGENT: Wound Type: Abrasion Suggestions for Active Care Change Position every (hours): 2 Positions to Avoid: Sitting on sacrum/flap. Hours to sit in a chair: 0 Therapies Physical Therapy: Eval and Treat (No sitting on sacrum/flap. He needs to be on far right or left side or prone) Problem/Diagnosis (1) Iron deficiency anemia: Status: Acute Code(s): D50.9 - Iron deficiency anemia, unspecified Plan Patient with no complaints at this time. He has been trying to keep pressure off of his flap site. He may lay on far right and far left sides or on abdomen (prone). Dry dressing over flap. Encouraged increased protein intake to help with wound healing. He has protein supplements. ID consulted for IV antibiotics for positive cultures from initial debridement. He is currently on Vancomycin, Gentamicin and Flagyl. He is being followed by medicine for his medical issues, including his anemia, which his Hgb stable at 7.6 Dr. Rodriguez present on rounds. Plan of care discussed. He will transfer to TCU today or tomorrow. Allergies/Procedures Done in Hospital Allergies latex Allergy (Verified 06/30/24 06:15) Hives Penicillins Allergy (Verified 06/30/24 06:15) Nausea/Vom/Diarrhea levofloxacin (From Levaquin) Adverse Reaction (Mild, Verified 06/30/24 06:15) Nausea/Vom/Diarrhea Type of Care/Length of Stay Estimated LOS: Convalescent Care Less Than 30 days Type of Care Needed: Skilled Rehab Potential: Good Prognosis: Good Additional Orders/Day of Discharge Day of Discharge: 07/10/24 Dietary and Speech Recommendations Dietitian Recommendations/Changes: Continue regular diet to optimze oral intakes s/p surgery. Continue 120mL ensure plus high protein TID with medpass to provide supplemental energy. Follow Up Care Please follow up with your Primary Care Physician in: Upon discharge from TCU he will follow up with Dr. Rodriguez @ wound center Discharge Plan Admission Admit Date/Time: 06/30/24 09:02 Attending Provider: Myron Rodriguez Primary Care Provider: Lucia Parmar Consulting Providers: Myron Light; Esa Mccurdy Discharge Orders/Prescriptions Prescriptions: New meropenem 1 gram recon soln 1 g IV Q8H 34 Days Rx Instructions: stop date 08/11/24. Dx: sacral osteo. Weekly bmp, cbc, LFT, and ESR. fax to [phone]. Routine picc care per protocol. minocycline 100 mg capsule 100 mg PO BID Qty: 68 0RF Rx Instructions: Take two caps for 1st dose, then 1 cap bid after that No Action levetiracetam [Keppra] 500 mg tablet 500 mg PO BID Qty: 60 0RF ferrous sulfate [FeroSul] 325 mg (65 mg iron) Tablet 325 mg PO DAILY@1200 90 Days Qty: 90 0RF potassium 99 mg tablet 99 mg PO DAILY (DME) Bard Coude Tip Catheter 14 Fr misc See Rx Instructions .Route Qty: 120 5RF Rx Instructions: As directed Referrals / Follow Up: Lucia Parmar MD [Primary Care Provider] - Disposition Disposition (needs filled in before D/C Order can be placed): Detention Facility Charges/Coding Procedures Integumentary [id number]: 45013 Global Visit
--- NOTE | 2024-07-09 13:19 | PCM.DC.SUM ---
Providers Date of Admission: 06/30/24 Date of Discharge: 07/10/24 Primary Care Physician: Dr. Lucia Parmar MD Consultations 06/30/24 09:09 Consult: Onc/Wound/nib adjuster Routine Comment: Reason for Consult:: sacral wound care with irrigating wound VAC 06/30/24 09:12 Consult: Hospitalist Routine Consulting Provider: Jairon Koch Reason for Consult: Medical management EMERGENT Consult: No MD Notified: Yes Date Notified: 06/30/24 Time Notified: 09:13 Method of Notification: Verbal 07/02/24 09:11 Consult: Infectious Disease Routine Consulting Provider: Myron Light Reason for Consult: postive operative tissue and bone cultures EMERGENT Consult: No MD Notified: Yes Date Notified: 07/02/24 Time Notified: 09:11 Method of Notification: Text Reason For Visit: Excision sacral wound with flap reconstruction wit Diagnosis Discharge Diagnosis (1) Stage IV pressure ulcer of sacral region: Status: Acute Code(s): L89.154 - Pressure ulcer of sacral region, stage 4 (2) Iron deficiency anemia: Status: Acute Code(s): D50.9 - Iron deficiency anemia, unspecified Plan Patient with no complaints at this time. He has been trying to keep pressure off of his flap site. He may lay on far right and far left sides or on abdomen (prone). Dry dressing over flap. Encouraged increased protein intake to help with wound healing. He has protein supplements. ID consulted for IV antibiotics for positive cultures from initial debridement. He is currently on Vancomycin, Gentamicin and Flagyl. He is being followed by medicine for his medical issues, including his anemia, which his Hgb stable at 7.6 Dr. Rodriguez present on rounds. Plan of care discussed. He will transfer to TCU today or tomorrow. Medications at Discharge Home Medications ferrous sulfate 325 mg (65 mg iron) tablet (FeroSul) 325 mg PO DAILY@1200 90 days #90 tabs 01/31/23 levetiracetam 500 mg tablet (Keppra) 500 mg PO BID #60 tabs 03/27/23 catheter 14 Fr (Bard Coude Tip Catheter) #120 ea 04/02/23 potassium 99 mg tablet 99 mg PO DAILY SUPPLEMENT 06/30/24 meropenem 1 gram intravenous solution 1 g IV Q8H 34 days 07/08/24 minocycline 100 mg capsule 100 mg PO BID #68 caps 07/08/24 Hospital Course Operations - (06/30/24 Excision of sacral wound and application of irrigating wound VAC. 07/06/24 Surgical preparation/excision of sacral wound.) Summary of Care Provided Minutes Spent on Discharge: 25 Hospital Course: Patient was admitted on 06/30/24 for ) Excision of sacral wound, 10.2 x 5 cm (2 cm deep down to bone), and 2) Application of irrigating negative pressure wound VAC (not disposable). Medicine was consulted to manage his medical conditions, which include his Iron deficiency anemia (which he received 4 doses of ferrous gluconate), seizure disorder (on Keppra) and spina bifida. He has Heme positive stool which he will be referred to GI on an outpatient for formal endoscopy. ID consulted for positive operative tissue cultures of Staphylococcus sciuri, Acinetobacter baumannii, MDRO Enterococcus faecalis, Corynebacterium jeikeium, Corynebacterium striatum, Kocuria rosea, and Staph epi. His operative sacral bone cultures were positive Acinetobacter baumannii, Staphylococcus sciuri, Staphylococcus epidermidis, and Corynebacterium jeikeium. He has been treated with Vanc, Gent and Flagyl. Once he is discharged he will be switched to IV Meropenem and po Minocycline. Surgery 07/06/24 for Surgical preparation/excision of sacral wound. Wound VAC placed over the flap site. His flap is doing well. Plan for transfer to TCU to help monitor his flap. Patient encouraged to not put pressure on flap and to lay on sides and stomach. Physical Exam Narrative VAC removed today. Flap looks good, pink in color with capillary refill <2 seconds. RANJAN drains draining serosanguineous drainage. Const alert General Appearance: cooperative Orientation / Consciousness: awake HEENT normocephalic Eyes General Eye: normal appearance of both eyes Neck full ROM Resp normal respiratory effort and normal air movement Effort and Inspection: able to speak in complete sentences Cardio regular rate and regular rhythm GI GI Narrative: colostomy with soft, green stool in bag. Extremity normal to inspection and normal capillary refill Neuro oriented x3 Weight / BMI Weight Weight: 136 lb 3.931 oz Body Mass Index (BMI) 18.4 ABG / Lab / Microbiology Data 07/09/24 13:29 07/09/24 13:29 Laboratory: Laboratory Results - last 24 hr 07/08/24 21:27: Vancomycin Trough 14.9 07/09/24 13:29: WBC 14.0 H, RBC 4.34 L, Hgb 9.1 L, Hct 31.3 L, MCV 72.1 L, MCH 21.0 L, MCHC 29.1 L, RDW Std Deviation 55.4 H, RDW Coeff of Cathy 22.8 H, Plt Count 360, MPV 8.9, Immature Gran % (Auto) 1.100 H, Neut % (Auto) 78.7 H, Lymph % (Auto) 11.9 L, [place] % (Auto) 5.4, Eos % (Auto) 2.5, Baso % (Auto) 0.4, Absolute Neuts (auto) 11.0 H, Absolute Lymphs (auto) 1.67, Nucleated RBC % 0, Differential Comment SCANNED, Sodium 137, Potassium 2.9 L, Chloride 108 H, Carbon Dioxide 22.0, Anion Gap 7, BUN 8, Creatinine 0.93, Estim Creat Clear Calc 101.52, Est GFR (MDRD) Af Amer 122, Est GFR (MDRD) Non-Af 101, BUN/Creatinine Ratio 8.6 L, Glucose 115 H, Calcium 8.1 L, Random Gentamicin 4.6 Microbiology: Microbiology 07/06/24 14:24 Tissue - Sacral Gram Stain - Final 07/06/24 14:24 Tissue - Sacral Wound Culture - Final No growth aerobically. 07/06/24 14:24 Tissue - Sacral Anaerobic Culture - Preliminary No growth in 48 hours. 07/06/24 14:31 Bone - Sacral Bone Gram Stain - Final 07/06/24 14:31 Bone - Sacral Bone Wound Culture - Final No growth aerobically. 07/06/24 14:31 Bone - Sacral Bone Anaerobic Culture - Preliminary No growth in 48 hours. 07/06/24 10:15 Stool Stool Occult Blood (LENARD) - Final Occult Blood Positive 06/30/24 Unknown Tissue - Sacral Gram Stain - Final 06/30/24 Unknown Tissue - Sacral Wound Culture - Final Staphylococcus sciuri Acinetobacter baumannii Enterococcus faecalis Corynebacterium jeikeium Corynebacterium striatum Kocuria rosea Staphylococcus epidermidis 06/30/24 Unknown Tissue - Sacral Anaerobic Culture - Final No anaerobic bacteria isolated. 06/30/24 Unknown Bone - Sacral Bone Gram Stain - Final 06/30/24 Unknown Bone - Sacral Bone Wound Culture - Final Acinetobacter baumannii Staphylococcus sciuri Staphylococcus epidermidis Corynebacterium jevonikeium 06/30/24 Unknown Bone - Sacral Bone Anaerobic Culture - Final No anaerobic bacteria isolated. D/C Instructions DC O2, CPAP, BIPAP Needs Home O2 Discharge instructions: No Meaningful Use Info Meaningful Use Meaningful Use Diagnoses (Choose all that apply): None applicable Ischemic Stroke Statin Dosing Therapy Reference: STATIN DOSE THERAPY REFERENCE: * Patients > 75 years receive moderate or high dose statin therapy. * Patients 75 years or YOUNGER should receive HIGH intensity statin dose unless contraindicated. You will be required to document reason for non-treatment if statin daily dose does not meet guidelines. HIGH DOSE STATIN THERAPY DAILY Atorvastatin > than or = to 40 mg Rosuvastatin > than or = to 20 mg Amlodipine + Atorvastatin > than or = to 2.5/40 mg Ezetimibe + Simvastatin 10/80 mg Simvastatin 80mg Discharge Plan Admission Admit Date/Time: 06/30/24 09:02 Attending Provider: Myron Rodriguez Primary Care Provider: Lucia Parmar Consulting Providers: Myron Light; Esa Mccurdy Instructions Additional Instructions / Restrictions: Stay off of flap. Make sure to lay on sides and stomach. Strip RANJAN drains 1-2 times per shift and keep track of drainage amount. Discharge Orders/Prescriptions Prescriptions: New meropenem 1 gram recon soln 1 g IV Q8H 34 Days Rx Instructions: stop date 08/11/24. Dx: sacral osteo. Weekly bmp, cbc, LFT, and ESR. fax to [phone]. Routine picc care per protocol. minocycline 100 mg capsule 100 mg PO BID Qty: 68 0RF Rx Instructions: Take two caps for 1st dose, then 1 cap bid after that No Action levetiracetam [Keppra] 500 mg tablet 500 mg PO BID Qty: 60 0RF ferrous sulfate [FeroSul] 325 mg (65 mg iron) Tablet 325 mg PO DAILY@1200 90 Days Qty: 90 0RF potassium 99 mg tablet 99 mg PO DAILY (DME) Bard Coude Tip Catheter 14 Fr misc See Rx Instructions .Route Qty: 120 5RF Rx Instructions: As directed Referrals / Follow Up: Lucia Parmar MD [Primary Care Provider] - Disposition Disposition (needs filled in before D/C Order can be placed): [facility]
[2024-07-09 13:44] LABS: Absolute Lymphocyte Count 1.67 X10^3/uL (0.83-4.51); Basophil# 0.05 X10^3/uL; Basophil% 0.4 % (0-1); Eosinophil# 0.35 X10^3/uL; Eosinophils% 2.5 % (0-5); Hematocrit 31.3 % (40-54); Hemoglobin 9.1 g/dL (13.0-16.5); Lymphocyte # 1.67 X10^3/ul (0.83-4.51); Lymphocyte % 11.9 % (19-41); Mean Corp Hgb Conc 29.1 g/dL (32-36); Mean Corpuscular Volume 72.1 fL (80-94); Mean Platelet Vol. 8.9 fl (6.2-12.0); Monocyte# 0.76 X10^3/uL; Monocyte% 5.4 % (0-10); NRBC Flagged by Analyzer 0 % (0-5); Neutrophil # 11.02 X10^3/uL (2.7-7.7); Neutrophil % 78.7 % (47-70); POSITIVE MORPHOLOGY YES; Platelet Count 360 K/mm3 (150-450); RBC Distribution Width CV 22.8 % (11.6-14.6); RBC Distribution Width SD 55.4 fl (35.1-43.9); Red Blood Count 4.34 M/mm3 (4.6-6.2)
[2024-07-09 13:46] LABS: Differential Indicated SCAN CRITERIA MET
[2024-07-09 13:59] LABS: Anion Gap 7 (5-15); BUN 8 mg/dL (7-18); BUN/Creat Ratio 8.6 RATIO (10-20); Calcium,Total 8.1 mg/dL (8.5-10.1); Chloride 108 mmol/L (98-107); Creatinine, Serum 0.93 mg/dL (0.70-1.30); EST Glomerular Filtration Rate 101 mL/min (>60); Est Glom Filt Rate - Afr Amer 122 mL/min (>60); Estimated Creatinine Clearance 101.52 ml/min; Glucose 115 mg/dL (74-106); Potassium 2.9 mmol/L (3.5-5.1); Sodium Level 137 mmol/L (136-145)
[2024-07-09] MEDS: Acetaminophen 500 MG Tablet 1000 MG PO (14:07)
[2024-07-09 14:09] LABS: Differential Comment SCANNED
[2024-07-09 14:12] LABS: Gentamicin, Random 4.6 ug/mL
--- NOTE | 2024-07-09 14:43 | PCM.RX.CS ---
Consult Antibiotic Management Pharmacy has been consulted to manage selected antibiotic: Gentamicin Type of Intervention Type of Consult: Follow-up Labs Labs: Sodium 137 mmol/L (136-145) 07/09/24 13:29 Potassium 2.9 mmol/L (3.5-5.1) L 07/09/24 13:29 Chloride 108 mmol/L (98-107) H 07/09/24 13:29 Carbon Dioxide 22.0 mmol/L (21.0-32.0) 07/09/24 13:29 Anion Gap 7 (5-15) 07/09/24 13:29 BUN 8 mg/dL (7-18) 07/09/24 13:29 Creatinine 0.93 mg/dL (0.70-1.30) 07/09/24 13:29 Est GFR (MDRD) Af Amer 122 mL/min (>60) 07/09/24 13:29 Est GFR (MDRD) Non-Af 101 mL/min (>60) 07/09/24 13:29 BUN/Creatinine Ratio 8.6 RATIO (10-20) L 07/09/24 13:29 Glucose 115 mg/dL (74-106) H 07/09/24 13:29 Random Gentamicin 4.6 ug/mL 07/09/24 13:29 Vancomycin Trough 14.9 ug/mL (5.0-15.0) 07/08/24 21:27 Random Vancomycin 15.6 ug/mL (0.0-15.0) H 07/05/24 21:05 Microbiology Microbiology: Microbiology 07/06/24 14:24 Tissue - Sacral Gram Stain - Final 07/06/24 14:24 Tissue - Sacral Wound Culture - Final No growth aerobically. 07/06/24 14:24 Tissue - Sacral Anaerobic Culture - Preliminary No growth in 48 hours. 07/06/24 14:31 Bone - Sacral Bone Gram Stain - Final 07/06/24 14:31 Bone - Sacral Bone Wound Culture - Final No growth aerobically. 07/06/24 14:31 Bone - Sacral Bone Anaerobic Culture - Preliminary No growth in 48 hours. 07/06/24 10:15 Stool Stool Occult Blood (LENARD) - Final Occult Blood Positive 06/30/24 Unknown Tissue - Sacral Gram Stain - Final 06/30/24 Unknown Tissue - Sacral Wound Culture - Final Staphylococcus sciuri Acinetobacter baumannii Enterococcus faecalis Corynebacterium jeikeium Corynebacterium striatum Yannrimaritza donald Staphylococcus epidermidis 06/30/24 Unknown Tissue - Sacral Anaerobic Culture - Final No anaerobic bacteria isolated. 06/30/24 Unknown Bone - Sacral Bone Gram Stain - Final 06/30/24 Unknown Bone - Sacral Bone Wound Culture - Final Acinetobacter baumannii Staphylococcus sciuri Staphylococcus epidermidis Corynebacterium jeikeium 06/30/24 Unknown Bone - Sacral Bone Anaerobic Culture - Final No anaerobic bacteria isolated. Pharmacy Plan for Drug Dosing Pharmacy Plan for Drug Dosing: GENTAMICIN LEVEL RECEIVED Current Gentamicin Dose: 310mg Q36H Number of Doses Received: 7 Gentamicin Level: 4.6 mg/dL Hours Since Last Dose: 10 Renal Function: Scr 0.93 mg/dL, CrCl 101 mL/min Renal Function Trend: stable Gentamicin Plan/Comments: 10 hour random level is 4.6mg/dL, continue 310mg Q36H per dosing nomogram. Will not schedule another level as this time as patient is supposed to be discharged tomorrow. If not discharged, next level will be in 5-7 days. Pending Level: none Pharmacy Service will continue to monitor and adjust dosing as required.
--- NOTE | 2024-07-09 15:45 | NURSING ---
DR CLAY NOTIFIED VIA TEXT, K+ 2.9
[2024-07-09] MEDS: Potassium Chloride Oral Tablet 20 MEQ 60 MEQ PO (16:21)
[2024-07-09] MEDS: 0.9% Normal Saline (100mL Bag) 100 ML 15 ML IV (20:51)
[2024-07-10 02:46] VITALS: BP 106/63; PULSE 93; RESP 14; TEMP 36.6; O2SAT 99
[2024-07-10] MEDS: metroNIDAZOLE 500 MG Tablet PO ×2 (06:23→14:48)
[2024-07-10 08:48] VITALS: BP 111/71; PULSE 95; RESP 18; TEMP 36.8; O2SAT 99
[2024-07-10] MEDS: Vancomycin IV 500 MG/100 ML BAG 100 MG IV (09:32)
[2024-07-10] MEDS: Pantoprazole Sodium 40 MG Tablet PO (09:32)
[2024-07-10] MEDS: Enoxaparin 40 MG/0.4 ML Syringe SC (09:32)
[2024-07-10] MEDS: levETIRAcetam 500 MG Tablet PO (09:32)
--- NOTE | 2024-07-10 13:22 | PCM.PROGNOTE ---
Subjective Subjective Doing well. Nursing and patient report good pressure offloading. Objective Data Objective Data Vital Signs: Vital Signs Temp Pulse Resp BP Pulse Ox O2 Del Method O2 Flow Rate 98.2 F 95 18 111/71 99 Room Air 2 07/10/24 08:48 07/10/24 08:48 07/10/24 08:48 07/10/24 08:48 07/10/24 08:48 07/10/24 10:00 07/06/24 15:55 Oxygen Flow Rate (L/min) 2 Oxygen Delivery Method Room Air Weight: 136 lb 3.931 oz Body Mass Index (BMI) 18.4 Intake & Output: Intake and Output for Last 24 Hours 07/08/24 07/09/24 07/10/24 23:59 23:59 23:59 Intake Total 650 / 850 557.75 / 607.75 1175 / 1175 Output Total 1030 / 1530 1565 / 1765 1340 / 1340 Balance -380 / -680 -1007.25 / -1157.25 -165 / -165 Lab / Micro Data 07/09/24 13:29 07/09/24 13:29 Labs: Laboratory Results - last 24 hr 07/09/24 13:29: WBC 14.0 H, RBC 4.34 L, Hgb 9.1 L, Hct 31.3 L, MCV 72.1 L, MCH 21.0 L, MCHC 29.1 L, RDW Std Deviation 55.4 H, RDW Coeff of Cathy 22.8 H, Plt Count 360, MPV 8.9, Immature Gran % (Auto) 1.100 H, Neut % (Auto) 78.7 H, Lymph % (Auto) 11.9 L, [place] % (Auto) 5.4, Eos % (Auto) 2.5, Baso % (Auto) 0.4, Absolute Neuts (auto) 11.0 H, Absolute Lymphs (auto) 1.67, Nucleated RBC % 0, Differential Comment SCANNED, Sodium 137, Potassium 2.9 L, Chloride 108 H, Carbon Dioxide 22.0, Anion Gap 7, BUN 8, Creatinine 0.93, Estim Creat Clear Calc 101.52, Est GFR (MDRD) Af Amer 122, Est GFR (MDRD) Non-Af 101, BUN/Creatinine Ratio 8.6 L, Glucose 115 H, Calcium 8.1 L, Random Gentamicin 4.6 Micro: Microbiology 07/06/24 14:24 Tissue - Sacral Gram Stain - Final 07/06/24 14:24 Tissue - Sacral Wound Culture - Final No growth aerobically. 07/06/24 14:24 Tissue - Sacral Anaerobic Culture - Preliminary No growth in 48 hours. 07/06/24 14:31 Bone - Sacral Bone Gram Stain - Final 07/06/24 14:31 Bone - Sacral Bone Wound Culture - Final No growth aerobically. 07/06/24 14:31 Bone - Sacral Bone Anaerobic Culture - Preliminary No growth in 48 hours. 07/06/24 10:15 Stool Stool Occult Blood (LENARD) - Final Occult Blood Positive 06/30/24 Unknown Tissue - Sacral Gram Stain - Final 06/30/24 Unknown Tissue - Sacral Wound Culture - Final Staphylococcus sciuri Acinetobacter baumannii Enterococcus faecalis Corynebacterium jeikeium Corynebacterium striatum Kocuria rosea Staphylococcus epidermidis 06/30/24 Unknown Tissue - Sacral Anaerobic Culture - Final No anaerobic bacteria isolated. 06/30/24 Unknown Bone - Sacral Bone Gram Stain - Final 06/30/24 Unknown Bone - Sacral Bone Wound Culture - Final Acinetobacter baumannii Staphylococcus sciuri Staphylococcus epidermidis Corynebacterium jeikeium 06/30/24 Unknown Bone - Sacral Bone Anaerobic Culture - Final No anaerobic bacteria isolated. Physical Exam Narrative VAC removed today. Flap looks good, pink in color with capillary refill <2 seconds. RANJAN drains draining serosanguineous drainage. Const alert General Appearance: cooperative Orientation / Consciousness: awake HEENT normocephalic Eyes General Eye: normal appearance of both eyes Neck full ROM Resp normal respiratory effort and normal air movement Effort and Inspection: able to speak in complete sentences Cardio regular rate and regular rhythm GI GI Narrative: colostomy with soft, green stool in bag. Extremity normal to inspection and normal capillary refill Neuro oriented x3 Assessment & Plan Assessment/Plan (1) Sacral osteomyelitis: (2) Decubitus ulcer of sacral area: QUALIFIERS: Pressure injury stage: stage 4 Qualified Code(s): L89.154 - Pressure ulcer of sacral region, stage 4 PLAN: Plan Continue pressure offloading and drain care Patient being transferred to the transitional care unit today for rehabilitation. Continue pressure offloading bed at all times. Neuro: Keppra for seizures. Hem/ID: Continue antibiotics per ID and continue SCDs and Lovenox for DVT pxx. Renal: Continue BMPs every other day to monitor kidneys while on broad-spectrum antibiotics PSU to follow Charges/Coding Procedures Integumentary [id number]: [id number] Global Visit
[2024-07-10] MEDS: Ferrous Sulfate 325 MG Tablet PO (14:49)
[2024-07-10 14:50] VITALS: BP 113/65; PULSE 99; RESP 18; TEMP 37.2; O2SAT 99
--- NOTE | 2024-07-10 14:52 | NURSING ---
talked with [facility] in TCU, aware they will notify [employer] of patient coming to them on special mattress for charging purposes.
[2024-07-10 14:57] VITALS: BP 113/65; PULSE 99; RESP 18; TEMP 37.2; O2SAT 99
== END 2024-07-10 15:05 | disposition skilled nursing facility (03) | DRG 574 ==
LOC: SDC 09:33 → MS3 09:33
PROVIDERS: Anesthesiology; Family Medicine; Internal Medicine; Internal Medicine Infectious Disease; Nurse Practitioner Family; Admitting Provider Surgery Plastic and Reconstructive Surgery; PCP Internal Medicine; Referring Provider Surgery Plastic and Reconstructive Surgery; Visit Provider Surgery Plastic and Reconstructive Surgery
PROC: 0QB10ZZ Excision of Sacrum, Open Approach (ICD-10-PCS; CPT 15999; principal; 2024-06-30 07:15)
PROC: 0JX90ZC Transfer Buttock Subcutaneous Tissue and Fascia with Skin, Subcutaneous Tissue and Fascia, Open Approach (ICD-10-PCS; principal; 2024-07-06 12:15)
DX: L89.154 Pressure ulcer of sacral region, stage 4 (principal); G82.20 Paraplegia, unspecified; M46.28 Osteomyelitis of vertebra, sacral and sacrococcygeal region; D63.8 Anemia in other chronic diseases classified elsewhere; G40.909 Epilepsy, unspecified, not intractable, without status epilepticus; Z93.3 Colostomy status; Q05.9 Spina bifida, unspecified; D50.9 Iron deficiency anemia, unspecified; Z99.3 Dependence on wheelchair; A48.8 Other specified bacterial diseases
CPT/HCPCS: 11043; 11046; 36415; 36569; 75805; 80048; 80053; 80170; 80202; 82274; 82728; 83540; 83550; 84134; 85025; 85027; 85730; 87015; 87070; 87075; 87077; 87102; 87116; 87176; 87186; 87205; 87206; 88305; 88307; 88311; 93005; 97110; 97161; 97166; 97802; A4216; J2405; J2916

== ENCOUNTER 2024-07-10 15:21 | Inpatient (IN) | payer MEDICARE, MEDICAID, SELFPAY ==
[2024-07-10 15:44] VITALS: BP 112/57; PULSE 108; RESP 16; TEMP 36.8; O2SAT 100
[2024-07-10 15:46] VITALS: BMI 14.8
--- NOTE | 2024-07-10 16:09 | NURSING ---
This nurse called [facility] to transfer pt. bed from [facility] to TCU Rm 6. Conformation code [id number]. This nurse tried to provide [facility] with new V number, [facility] stated they do not need it as V numbers do not change.
[2024-07-10] MEDS: 0.9% Saline Lock 10 ML Syringe IV (22:48)
[2024-07-10] MEDS: levETIRAcetam 500 MG Tablet PO (22:49)
[2024-07-10] MEDS: Meropenem 1 GM in 0.9% Normal Saline (100mL MB+) 100 ML IV (22:52)
[2024-07-10] MEDS: Minocycline 100 MG Capsule 200 MG PO (23:02)
[2024-07-11] MEDS: 0.9% Saline Lock 10 ML Syringe IV ×3 (06:04→21:26)
[2024-07-11] MEDS: Meropenem 1 GM in 0.9% Normal Saline (100mL MB+) 100 ML IV ×3 (06:05→21:26)
[2024-07-11 06:31] LABS: Absolute Lymphocyte Count 2.06 X10^3/uL (0.83-4.51); Absolute Neutrophil Count 8.1 X10^3/uL (2.0-7.7); Basophil# 0.07 X10^3/uL; Basophil% 0.6 % (0-1); Eosinophil# 0.49 X10^3/uL; Eosinophils% 4.2 % (0-5); Hematocrit 29.6 % (40-54); Hemoglobin 8.9 g/dL (13.0-16.5); Lymphocyte # 2.06 X10^3/ul (0.83-4.51); Lymphocyte % 17.6 % (19-41); Mean Corp Hgb Conc 30.1 g/dL (32-36); Mean Corpuscular Hgb 21.4 pg (27.0-32.0); Mean Corpuscular Volume 71.3 fL (80-94); Mean Platelet Vol. 8.8 fl (6.2-12.0); Monocyte# 0.79 X10^3/uL; Monocyte% 6.8 % (0-10); NRBC Flagged by Analyzer 0 % (0-5); Neutrophil # 8.09 X10^3/uL (2.7-7.7); Neutrophil % 69.1 % (47-70); POSITIVE MORPHOLOGY YES; Platelet Count 384 K/mm3 (150-450); RBC Distribution Width CV 23.8 % (11.6-14.6); RBC Distribution Width SD 59.7 fl (35.1-43.9); Red Blood Count 4.15 M/mm3 (4.6-6.2); White Blood Count 11.7 K/mm3 (4.4-11.0)
[2024-07-11 06:43] LABS: Differential Indicated SCAN CRITERIA MET
--- NOTE | 2024-07-11 07:10 | HP.PCM_ITS ---
HPI - General General Date of Admission: 07/10/24 Date of Service: 07/12/24 Chief Complaint: Here for rehabilitation. HPI Narrative INESSA ADAMES, is a 28 Male who presents with followin06/30/2024 Admit [facility]. 06/30/2024 Dr. Rodriguez performed excision of sacral wound, application of wound VAC. 06/30/2024 Monitor iron deficiency anemia. 07/01/2024 Gas pains. Order iron studies. Repeat surgery next week. 07/02/2024 Dr. Light recommended Vancomycin, Gentamicin, Flagyl for history of MDR AcB and Pseudomonas. 07/02/2024 No distress. IV Venofer for severe iron deficiency anemia. 07/03/2024 Feeling well, Eating well. Hemoglobin stable. Vancomycin, Gentamicin, Flagyl. Flap surgery next week. 07/04/2024 No acute events overnight. Hemoglobin 10.4 to 8.2. Culture growing Staph Sciuri, Acinetobacter Baumannii, Enterococcus Faecalis, Corynebacterium Jeikeium. 07/05/2024 Nausea. Venofer IV thru today, then ferrous sulfate PO. Continue Vancomycin, Gentamicin, Flagyl. 07/06/2024 Feeling better, has not eaten. Hemoccult positive, follow up GI outpatient. 07/06/2024 Dr. Rodriguez performed surgical preparation/excision of sacral wound, flap reconstruction. 07/07/2024 Feeling well, less nausea. 07/08/2024 Feeling well, no nausea, eating some. Discharge planning is 6 weeks of Meropenem, minocycline thru 08/11/2024. Hemglobin 7.6, no transfusion unless less than 7. 07/08/2024 Doing well, hard not to put pressure on flap. Continue Wound VAC, 125mm HG. Encourage protein intake. 07/09/2024 Feeling okay, trying to lie on side. Received 4 doses of Venofer, hemoccult positive, follow up GI outpatient. 07/10/2024 Admit to TCU with debility, here for rehabilitation, intravenous antibiotics, prior to discharge home with family. [facility] Medical History Multiple drug resistant organism (MDRO) culture positive Open wound Low iron Gastric reflux Methicillin resistant Staphylococcus epidermidis infection Cognitive decline Anxiety Psoriasis Uses wheelchair Kidney stone Seizures Incontinence of bowel Heartburn Non-smoker History of edema Hx of spina bifida Stage IV pressure ulcer of sacral region Congenital hip dysplasia Home Medications ?Medication ?Instructions ?Recorded ?Last Taken ?Type ferrous sulfate 325 mg (65 mg 325 mg PO DAILY@1200 supplement 90 01/31/23 Unknown Rx iron) tablet (FeroSul) days #90 tabs levetiracetam 500 mg tablet 500 mg PO BID seizures #60 tabs 03/27/23 06/29/24 03:30 Rx (Keppra) catheter 14 Fr (Bard Coude Tip #120 ea 04/02/23 Unknown Rx Catheter) potassium 99 mg tablet 99 mg PO DAILY SUPPLEMENT 06/30/24 Unknown History meropenem 1 gram intravenous 1 g IV Q8H sacral osteo 34 days 07/08/24 Unknown Rx solution minocycline 100 mg capsule 100 mg PO BID infection #68 caps 07/08/24 Unknown Rx Allergy/AdvReac Type Severity Reaction Status Date / Time latex Allergy Hives Verified 06/30/24 06:15 Penicillins Allergy Nausea/Vom/ Verified 06/30/24 06:15 Diarrhea levofloxacin (From Levaquin) AdvReac Mild Nausea/Vom/ Verified 06/30/24 06:15 Diarrhea Family History Other No significant family history Surgical History H/O bilateral hip replacements Colostomy in place Presence of urostomy S/P flap graft Ventricular shunt in place Social History household members: family current occupational status: disabled Smoking Status: Never smoker Electronic Cigarette Use: not used alcohol intake: never substance use type: does not use caffeine: Yes what type of physical activity do you participate in: none seatbelt use: always do you feel safe at home: Yes ROS Constitutional Constitutional: Reports weakness; Denies chills, fever(s) or weight gain ENT HEENT: Denies headache(s), nasal congestion or nasal discharge Cardiovascular Cardiovascular: Denies chest pain or palpitations Respiratory/Chest Respiratory/Chest: Denies cough, excessive phlegm production or shortness of breath with exertion Gastrointestinal Gastrointestinal: Denies abdominal pain, nausea or vomiting Genitourinary Genitourinary: Denies dysuria Musculoskeletal Musculoskeletal: Denies joint pain or joint swelling Integumentary Integumentary: Denies rash or wounds Neurologic Neurologic: Denies focal weakness, numbness or tingling Psychiatric Psychiatric: Denies anxiety, auditory hallucinations, depression, homicidal ideation or suicidal ideation Vital Signs Vital Signs Vital Signs: 07/10/24 15:44 07/10/24 15:44 07/10/24 17:09 Temperature 98.3 F Temperature Source Temporal Pulse Rate 108 H 108 H Pulse Rhythm Regular Pulse Strength Normal (2+) Normal (2+) Respiratory Rate 16 16 Respiratory Effort Normal Non-Labored Respiratory Depth Normal Respiratory Pattern Normal Blood Pressure 112/57 L Blood Pressure Mean 75 Blood Pressure Source Monitor Blood Pressure Position Sitting Blood Pressure Location Right Arm Pulse Ox 100 100 Oxygen Delivery Method Room Air Room Air 07/10/24 22:00 Temperature Temperature Source Pulse Rate Pulse Rhythm Pulse Strength Normal (2+) Respiratory Rate Respiratory Effort Respiratory Depth Respiratory Pattern Blood Pressure Blood Pressure Mean Blood Pressure Source Blood Pressure Position Blood Pressure Location Pulse Ox Oxygen Delivery Method Weight Weight: 56.699 kg Body Mass Index (BMI) 14.8 Physical Exam Const alert General Appearance: cooperative HEENT normocephalic Eyes PERRL and EOMs intact bilaterally Neck supple, no JVD and no carotid bruits Resp normal respiratory effort, normal air movement and clear to auscultation bilaterally Cardio regular rate and regular rhythm GI normal to inspection, nondistended, normoactive bowel sounds, non-tender and non-distended Bladder / Kidney Exam: catheter in place suprapubic Extremity normal capillary refill General Extremity: Negative for edema Skin no rashes or lesions noted Skin Narrative: Flap per wound nurse. General Skin Exam: no breakdown Psych affect normal Appearance: appropriate Results Lab / Micro Data 07/11/24 05:24 07/11/24 05:24 Labs: Laboratory Results - last 24 hr 07/11/24 05:24: WBC 11.7 H, RBC 4.15 L, Hgb 8.9 L, Hct 29.6 L, MCV 71.3 L, MCH 21.4 L, MCHC 30.1 L, RDW Std Deviation 59.7 H, RDW Coeff of Cathy 23.8 H, Plt Count 384, MPV 8.8, Immature Gran % (Auto) 1.700 H, Neut % (Auto) 69.1, Lymph % (Auto) 17.6 L, [place] % (Auto) 6.8, Eos % (Auto) 4.2, Baso % (Auto) 0.6, Absolute Neuts (auto) 8.1 H, Absolute Lymphs (auto) 2.06, Nucleated RBC % 0 Assessment & Plan Assessment/Plan (1) Debility: (2) Sacral osteomyelitis: (3) Decubitus ulcer of sacral area: QUALIFIERS: Pressure injury stage: stage 4 Qualified Code(s): L 89.154 - Pressure ulcer of sacral region, stage 4 (4) Iron deficiency anemia: (5) Spina bifida: QUALIFIERS: Presence of hydrocephalus: with hydrocephalus Spinal region: lumbosacral Qualified Code(s): Q05.2 - Lumbar spina bifida with hydrocephalus (6) Hypokalemia: (7) Neurogenic bladder: (8) Chronic indwelling Calderon catheter: (9) Seizure disorder: PLAN: Plan 28 year old male with below past medical history hospitalized for sacral pressure ulcer/chronic osteomyelitis, underwent flap surgery 07/07/[address] Rodriguez, complicated by iron deficiency anemia, admitted to TCU with debility, here for rehabilitation, strengthening, intravenous antibiotics, prior to discharge home with family. * Debility - PT/OT. * Pain - Tylenol 1000mg q6 prn pain (1-10). * Bowel - senna/colace 1 tablet bid prn. * Adult immunization - Administer pneumonia vaccine, covid vaccine, flu vaccine as appropriate. * DVT prophylaxis - Lovenox 40mg sc daily. * Nutrition - Ensure Plus 120mL po tidcm. * Iron deficiency anemia - Ferrous sulfate 325mg daily, Hemoccult +, consult DrJackie Cheng. * Seizure disorder - Keppra 500mg bid. * Chronic sacral osteomyelitis s/p debridement/flap - Meropenem 1gm iv q8 thru 08/11/2024, Minocycline 100mg bid thru 08/13/2024.
[2024-07-11 07:43] LABS: Anion Gap 9 (5-15); BUN 9 mg/dL (7-18); BUN/Creat Ratio 10.9 RATIO (10-20); Calcium,Total 8.2 mg/dL (8.5-10.1); Chloride 110 mmol/L (98-107); Creatinine, Serum 0.83 mg/dL (0.70-1.30); EST Glomerular Filtration Rate 115 mL/min (>60); Est Glom Filt Rate - Afr Amer 139 mL/min (>60); Estimated Creatinine Clearance 104.37 ml/min; Glucose 70 mg/dL (74-106); Potassium 3.4 mmol/L (3.5-5.1); Sodium Level 138 mmol/L (136-145)
--- NOTE | 2024-07-11 08:28 | NURSING ---
Each time RANJAN drains emptied during night time babysitter, characteristics noted as serosanguinous, primarily clear, and shreds of clear and bloody mucous. Resident denies any pain or discomfort to the drain sites. 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
[2024-07-11 09:01] LABS: Anisocytosis 3+; Differential Comment SCANNED; Macrocytosis 1+; Microcytosis 2+; Platelet Estimate ADEQUATE (ADEQ); Polychromasia 1+
[2024-07-11 11:01] VITALS: BP 98/57; PULSE 98; RESP 17; TEMP 36.9; O2SAT 93
[2024-07-11] MEDS: levETIRAcetam 500 MG Tablet PO ×2 (11:03→21:29)
[2024-07-11] MEDS: Minocycline 100 MG Capsule PO ×2 (13:10→21:35)
[2024-07-11] MEDS: Ferrous Sulfate 325 MG Tablet PO (13:15)
[2024-07-11] MEDS: Ensure Plus High Protein 120 ML LIQUID PO ×3 (13:23→21:29)
--- NOTE | 2024-07-11 13:47 | PN.SURG_ITS ---
Subjective Subjective Doing well overall in transitional care unit. Patient laying on flap again today though slightly, and had to reposition him (discussed with him importance of pressure offloading and being completely on one side or the other, or in prone position). Objective Data Objective Data Vital Signs: Vital Signs Temp Pulse Resp BP Pulse Ox O2 Del Method 98.4 F 98 17 98/57 L 93 Room Air 07/11/24 11:01 07/11/24 11:01 07/11/24 11:01 07/11/24 11:01 07/11/24 11:01 07/11/24 11:01 Oxygen Delivery Method Room Air Weight: 124 lb 15.998 oz Body Mass Index (BMI) 14.8 Intake & Output: Intake and Output for Last 24 Hours 07/09/24 07/10/24 07/11/24 23:59 23:59 23:59 Intake Total 120 / 120 722 / 722 Output Total 220 / 220 670 / 670 Balance -100 / -100 52 / 52 Lab / Micro Data 07/11/24 05:24 07/11/24 05:24 Labs: Laboratory Results - last 24 hr 07/11/24 05:24: WBC 11.7 H, RBC 4.15 L, Hgb 8.9 L, Hct 29.6 L, MCV 71.3 L, MCH 21.4 L, MCHC 30.1 L, RDW Std Deviation 59.7 H, RDW Coeff of Cathy 23.8 H, Plt Count 384, MPV 8.8, Immature Gran % (Auto) 1.700 H, Neut % (Auto) 69.1, Lymph % (Auto) 17.6 L, [place] % (Auto) 6.8, Eos % (Auto) 4.2, Baso % (Auto) 0.6, Absolute Neuts (auto) 8.1 H, Absolute Lymphs (auto) 2.06, Nucleated RBC % 0, Differential Comment SCANNED, Platelet Estimate ADEQUATE, Polychromasia 1+, Anisocytosis 3+, Microcytosis 2+, Macrocytosis 1+, Sodium 138, Potassium 3.4 L, Chloride 110 H, C arbon Dioxide 19.0 L, Anion Gap 9, BUN 9, Creatinine 0.83, Estim Creat Clear Calc 104.37, Est GFR (MDRD) Af Amer 139, Est GFR (MDRD) Non-Af 115, BUN/Creatinine Ratio 10.9, Glucose 70 L, Calcium 8.2 L Physical Exam Narrative Flap healthy, normal color with capillary refill <2 seconds. RANJAN drains draining serosanguineous drainage. Const alert General Appearance: cooperative Orientation / Consciousness: awake HEENT normocephalic Eyes General Eye: normal appearance of both eyes Neck full ROM Resp normal respiratory effort and normal air movement Effort and Inspection: able to speak in complete sentences Cardio regular rate and regular rhythm GI GI Narrative: colostomy with soft, brown stool in bag. Extremity normal to inspection and normal capillary refill Neuro oriented x3 Assessment & Plan Assessment/Plan (1) Sacral osteomyelitis: (2) Decubitus ulcer of sacral area: QUALIFIERS: Pressure injury stage: stage 4 Qualified Code(s): L 89.154 - Pressure ulcer of sacral region, stage 4 PLAN: Plan Continue pressure offloading and drain care Appreciate primary team (transitional care unit) Neuro: Keppra for seizures. Hem/ID: Continue antibiotics per ID and continue SCDs and Lovenox for DVT pxx. Renal: Continue BMPs every other day to monitor kidneys while on broad-spectrum antibiotics PSU to follow
--- NOTE | 2024-07-11 15:37 | NURSING ---
Addendum entered by Briseida Anguiano 07/11/24 19:22: Order clarification, Potassium 20meq ordered daily. Original Note: Potassium 3.4 this morning. Call placed to Dr. An, new order for K dur 20meq PO x1 and to repeat BMP on Friday. VORB.
[2024-07-11] MEDS: Tuberculin,Purif.prot.deriv. 50 TU/ML Vial 0.1 ML ID (16:02)
[2024-07-11] MEDS: Potassium Chloride Oral Tablet 20 MEQ PO (18:27)
[2024-07-12] MEDS: 0.9% Saline Lock 10 ML Syringe IV ×2 (05:24→22:45)
[2024-07-12] MEDS: Meropenem 1 GM in 0.9% Normal Saline (100mL MB+) 100 ML IV ×3 (05:26→22:47)
[2024-07-12] MEDS: Enoxaparin 40 MG/0.4 ML Syringe SC (05:29)
[2024-07-12] MEDS: Ensure Plus High Protein 120 ML LIQUID PO ×4 (05:33→22:45)
[2024-07-12 06:19] LABS: Erythrocyte Sedimentation Rate 71 mm/hr (0-20)
[2024-07-12 06:22] LABS: AST(SGOT) 8 U/L (15-37); Alanine Aminotransfer ALT/SGPT 14 U/L (16-61); Albumin, Serum 2.1 g/dL (3.2-5.0); Alkaline Phosphatase 58 U/L (45-117); Bilirubin, Direct 0.08 mg/dL (0.00-0.30); Globulin 4.2 g/dL (2.2-4.2); Protein, Total 6.3 g/dL (6.4-8.2)
[2024-07-12 07:41] VITALS: BP 128/74; PULSE 85; RESP 14; TEMP 36.9; O2SAT 99
--- NOTE | 2024-07-12 08:00 | NURSING ---
Dr. Cheng notified on need for Consult for Anemia and Positive Hemoccult at this time.
[2024-07-12] MEDS: Minocycline 100 MG Capsule PO ×2 (10:04→22:43)
[2024-07-12] MEDS: levETIRAcetam 500 MG Tablet PO ×2 (10:04→22:42)
[2024-07-12] MEDS: Potassium Chloride Oral Tablet 20 MEQ PO (10:19)
--- NOTE | 2024-07-12 11:44 | NURSING ---
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 His mom will bring him items he may need. Activities did leave him word puzzles and search and finds incase he wanted to try and work on them during his down times. Staff will remind him of weekly activities, encourage social activities and respect his right to say no.
[2024-07-12] MEDS: Ferrous Sulfate 325 MG Tablet PO (12:02)
--- NOTE | 2024-07-12 12:47 | PN_ITS ---
Subjective Subjective Reports good pressure offloading. Working with the therapy team. Objective Data Objective Data Vital Signs: Vital Signs Temp Pulse Resp BP Pulse Ox O2 Del Method 98.4 F 85 14 128/74 H 99 Room Air 07/12/24 07:41 07/12/24 07:41 07/12/24 07:41 07/12/24 07:41 07/12/24 07:41 07/12/24 07:41 Oxygen Delivery Method Room Air Weight: 124 lb 15.998 oz Body Mass Index (BMI) 14.8 Intake & Output: Intake and Output for Last 24 Hours 07/10/24 07/11/24 07/12/24 23:59 23:59 23:59 Intake Total 120 / 120 1202 / 1202 360 / 360 Output Total 220 / 220 685 / 685 500 / 500 Balance -100 / -100 517 / 517 -140 / -140 Lab / Micro Data 07/11/24 05:24 07/11/24 05:24 Labs: Laboratory Results - last 24 hr 07/12/24 05:04: ESR 71 H, Total Bilirubin 0.20, Direct Bilirubin 0.08, AST 8 L, ALT 14 L, Alkaline Phosphatase 58, Total Protein 6.3 L, Albumin 2.1 L, Globulin 4.2 Physical Exam Narrative Flap healthy, normal color with capillary refill <2 seconds. RANJAN drains draining serosanguineous drainage. Const alert General Appearance: cooperative Orientation / Consciousness: awake HEENT normocephalic Eyes General Eye: normal appearance of both eyes Neck full ROM Resp normal respiratory effort and normal air movement Effort and Inspection: able to speak in complete sentences Cardio regular rate and regular rhythm GI GI Narrative: colostomy with soft, brown stool in bag. Extremity normal to inspection and normal capillary refill Neuro oriented x3 Assessment & Plan Assessment/Plan (1) Sacral osteomyelitis: (2) Decubitus ulcer of sacral area: QUALIFIERS: Pressure injury stage: stage 4 Qualified Code(s): L 89.154 - Pressure ulcer of sacral region, stage 4 PLAN: Plan Continue pressure offloading and drain care Appreciate primary team (transitional care unit) Neuro: Keppra for seizures. Hem/ID: Continue antibiotics per ID and continue SCDs and Lovenox for DVT pxx. Renal: Continue BMPs every other day to monitor kidneys while on broad-spectrum antibiotics PSU to follow
--- NOTE | 2024-07-12 13:52 | PHA.CONS_ITS ---
TCU RX Drug Regimen Review Subjective/Objective Subjective/Objective Subjective: TCU Admission. 28 YOM presented to [facility] for surgery. Hospitalized for sacral pressure ulcer/chronic osteomyelitis, underwent flap surgery 07/07/[address] Rodriguez, complicated by iron deficiency anemia. Admitted to TCU with debility for strengthening, rehabilitation and IV antibiotics. Objective: Allergies latex Allergy (Verified 06/30/24 06:15) Hives Penicillins Allergy (Verified 06/30/24 06:15) Nausea/Vom/Diarrhea levofloxacin (From Levaquin) Adverse Reaction (Mild, Verified 06/30/24 06:15) Nausea/Vom/Diarrhea Current Medications Generic Name Dose Route Start Last Admin Trade Name Freq PRN Reason Stop Dose Admin Acetaminophen 1,000 mg 07/11/24 07:27 Acetaminophen 500 Mg Tablet PO Q6H PRN PRN Pain Score 1-10 Enoxaparin Sodium 40 mg 07/12/24 06:00 07/12/24 05:29 Enoxaparin 40 Mg/0.4 Ml Syringe SC 40 mg DAILY@0600 EMMANUEL Administration Ferrous Sulfate 325 mg 07/11/24 12:00 07/12/24 12:02 Ferrous Sulfate 325 Mg Tablet PO 325 mg DAILY@1200 EMMANUEL Administration Meropenem 1 gm/ Sodium 120 mls @ 33 mls/hr 07/10/24 22:00 07/12/24 09:15 Chloride IV 08/11/24 22:01 Infused Q8 EMMANUEL Infusion Sodium Chloride 500 mls @ 0 mls/hr 07/10/24 23:00 IV .Q0M EMMANUEL KVO Levetiracetam 500 mg 07/10/24 22:00 07/12/24 10:04 Levetiracetam 500 Mg Tablet PO 500 mg BID EMMANUEL Administration Minocycline HCl 100 mg 07/11/24 10:00 07/12/24 10:04 Minocycline 100 Mg Capsule PO 08/13/24 10:01 100 mg BID EMMANUEL Administration Nutritional Formula (Lactose Free) 120 ml 07/11/24 12:00 07/12/24 12:02 Ensure Plus High Protein 120 Ml Liquid PO 120 ml 4X/DAY EMMANUEL Administration Potassium Chloride 20 meq 07/11/24 15:33 07/12/24 10:19 Potassium Chloride Oral Tablet 20 Meq PO 20 meq DAILY EMMANUEL Administration Senna/Docusate Sodium 1 tablet 07/11/24 07:27 Senna/Docusate Sodium 1 Tablet PO BID PRN Constipation Sodium Chloride 10 - 40 ml 07/10/24 20:09 07/12/24 05:24 0.9% Saline Lock 10 Ml Syringe IV 20 ml UD PRN Administration SALINE FLUSH Tuberculin PPD 0.1 ml 07/18/24 10:00 Tuberculin,Purif.Prot.Deriv. 50 Tu/Ml Vial ID 07/18/24 10:01 X1 ONE Problem List Seizure disorder (Acute) Chronic indwelling Calderon catheter (Chronic) Neurogenic bladder (Acute) Hypokalemia (Acute) Debility (Acute) Sacral osteomyelitis (Acute) Iron deficiency anemia (Acute) Decubitus ulcer of sacral area (Acute) Spina bifida (Acute) Vital Signs Temp Pulse Resp BP Pulse Ox O2 Del Method 98.4 F 85 14 128/74 H 99 Room Air 07/12/24 07:41 07/12/24 07:41 07/12/24 07:41 07/12/24 07:41 07/12/24 07:41 07/12/24 07:41 Oxygen Delivery Method Room Air Weight: 56.699 kg Body Mass Index (BMI) 14.8 Sodium 138 mmol/L (136-145) 07/11/24 05:24 Potassium 3.4 mmol/L (3.5-5.1) L 07/11/24 05:24 Chloride 110 mmol/L (98-107) H 07/11/24 05:24 Carbon Dioxide 19.0 mmol/L (21.0-32.0) L 07/11/24 05:24 Anion Gap 9 (5-15) 07/11/24 05:24 BUN 9 mg/dL (7-18) 07/11/24 05:24 Creatinine 0.83 mg/dL (0.70-1.30) 07/11/24 05:24 Est GFR (MDRD) Af Amer 139 mL/min (>60) 07/11/24 05:24 Est GFR (MDRD) Non-Af 115 mL/min (>60) 07/11/24 05:24 BUN/Creatinine Ratio 10.9 RATIO (10-20) 07/11/24 05:24 Glucose 70 mg/dL (74-106) L 07/11/24 05:24 Assessment/Plan: 1. Pain: acetaminophen 1000mg PO Q6H PRN pain 1-10. Resident has not used any PRN doses. Please continue to monitor for increased pain and PRN usage. 2. Bowel: senna/docusate 1T PO BID PRN constipation. Resident has not used any PRN doses. Please continue to monitor for constipation and PRN usage. Last documented bowel movement was 07/12. 3. DVT prophylaxis: enoxaparin 40mg SC daily. Please continue to monitor for S/S of bleeding/DVT, platelets (last 384,000), hemoglobin (last 8.9g/dL) and renal function. 4. Chronic sacral osteomyelitis s/p debridement/flap: meropenem 1gm IV Q8 thru 08/11/24 and minocycline 100mg PO BID thru 08/13/24. Please continue to monitor for GI side effects, S/S of infection, renal function and diarrhea. 5. Seizure disorder: levetiracetam 500mg PO BID. Please continue to monitor for S/S of seizures, headache and dizziness. 6. Iron deficiency anemia: ferrous sulfate 325mg PO daily. Please continue to monitor hemoglobin (last 8.9g/dL), iron studies (last 07/01/24), constipation and dark stools. 7. Hypokalemia (based on potassium of 3.4mmol/L): potassium chloride 20mEq PO daily. Please continue to monitor potassium. Assessment/Plan for indications treated with psychotropic medications: None Medical chart and medication regimen reviewed. The following medication irregu larities or issues were identified: None Date Date of Note: 07/12/24
[2024-07-12 14:00] VITALS: PULSE 85; RESP 14; O2SAT 99
--- NOTE | 2024-07-12 14:01 | CHAPLAIN ---
Type of Pastoral Visit ___ Initial Visit _x__ Follow-up Visit ___ On-call Visit ___ General Patient Visit ___ Spiritual Assessment ___ Family Conference ___ Bereavement ___ Rapid Response ___ Code Blue ___ Other (describe below) Pastoral Care Referral From _x__ Patient ___ Family ___ Nurse ___ Physician ___ Termite Exterminator ___ Plant Puller ___ Other (describe below) Sacrament/Intervention _x__ Active listening ___ Anointing ___ Orthodoxy ___ Bereavement ___ Communion ___ Clementina exploration ___ ___ Life review _x__ Prayer ___ Reconciliation ___ Sacrament of Sick _x__ Supportive presence ___ Wedding ___ Other (describe below) Pastoral Comments follow up to this patient that was seen in [facility] last week; pt is looking at his phone and stating that he is doing well; casual conversation and encouragement to try some puzzles given to the patient; the patient denied any other needs at this time
--- NOTE | 2024-07-12 14:46 | NURSING ---
RANJAN drains emptied at 2pm. 20cc noted with each drain. Serosanguineous drainage noted. 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 Denies pain/discomfort. No concerns noted/voiced.
--- NOTE | 2024-07-12 15:08 | WOUNDNOTE ---
Colostomy appliance changed per pt request. some mild bleeding noted from the small granulomas to the stomal edges. peristomal skin is intact. cleansed with warm water. pat dry. applied a new Colosplast appliance with a paste ring and stoma paste per pt request. pt tolerated well. will monitor.
--- NOTE | 2024-07-12 18:55 | CON.PCM.GI_ITS ---
HPI Consult Data Date of Consult: 07/12/24 HPI Narrative Reason for Consultation: Anemia HPI Narrative: INESSA ADAMES, is a 28 M who was transferred to the TCU after a long stay in the hospital because of treatment of a sacral wound and application of a wound VAC. He was started on vancomycin, gentamicin, Flagyl for history of MDR, ACB and Pseudomonas. 06/30/2024 Admit [facility]. He was also discovered to have a severe iron deficiency anemia. He had been getting IV Venofer for for severeiron deficiency anemia. He was Hemoccult tested and was positive. I was called for his GI bleed. [facility] Medical History Multiple drug resistant organism (MDRO) culture positive Open wound Low iron Gastric reflux Methicillin resistant Staphylococcus epidermidis infection Cognitive decline Anxiety Psoriasis Uses wheelchair Kidney stone Seizures Incontinence of bowel Heartburn Non-smoker History of edema Hx of spina bifida Stage IV pressure ulcer of sacral region Congenital hip dysplasia Home Medications ?Medication ?Instructions ?Recorded ?Last Taken ?Type ferrous sulfate 325 mg (65 mg 325 mg PO DAILY@1200 supplement 90 01/31/23 Unknown Rx iron) tablet (FeroSul) days #90 tabs levetiracetam 500 mg tablet 500 mg PO BID seizures #60 tabs 03/27/23 06/29/24 03:30 Rx (Keppra) catheter 14 Fr (Bard Coude Tip #120 ea 04/02/23 Unknown Rx Catheter) potassium 99 mg tablet 99 mg PO DAILY SUPPLEMENT 06/30/24 Unknown History meropenem 1 gram intravenous 1 g IV Q8H sacral osteo 34 days 07/08/24 Unknown Rx solution minocycline 100 mg capsule 100 mg PO BID infection #68 caps 07/08/24 Unknown Rx Allergy/AdvReac Type Severity Reaction Status Date / Time latex Allergy Hives Verified 06/30/24 06:15 Penicillins Allergy Nausea/Vom/ Verified 06/30/24 06:15 Diarrhea levofloxacin (From Levaquin) AdvReac Mild Nausea/Vom/ Verified 06/30/24 06:15 Diarrhea Family History Other No significant family history Surgical History H/O bilateral hip replacements Colostomy in place Presence of urostomy S/P flap graft Ventricular shunt in place Social History household members: family current occupational status: disabled Smoking Status: Never smoker Electronic Cigarette Use: not used alcohol intake: never substance use type: does not use caffeine: Yes what type of physical activity do you participate in: none seatbelt use: always do you feel safe at home: Yes ROS Constitutional Constitutional: Denies fatigue, fever(s), poor appetite, weight gain or weight loss Gastrointestinal Gastrointestinal: Denies belching, bloating, change in bowel habits, change in stool character, chewing difficulty, coffee ground emesis, constipation, cramping, diarrhea, dyspepsia, dysphagia, early satiety, excessive flatus, fecal incontinence, heartburn, hematemesis, hematochezia, hemorrhoids, loose stools, melena, nausea, odynophagia, rectal bleeding, tenesmus, vomiting or weight changes Physical Exam Const alert, oriented x3, no apparent distress and healthy appearing General Appearance: cooperative GI normal to inspection, nondistended, normoactive bowel sounds, soft to palpation, non-tender and non-distended Percussion: normal to percussion Rectal Exam: deferred Lab / Micro Data 07/11/24 05:24 07/11/24 05:24 Labs: Laboratory Results - last 24 hr 07/12/24 05:04: ESR 71 H, Total Bilirubin 0.20, Direct Bilirubin 0.08, AST 8 L, ALT 14 L, Alkaline Phosphatase 58, Total Protein 6.3 L, Albumin 2.1 L, Globulin 4.2 Assessment & Plan Assessment/Plan (1) Debility: (2) Sacral osteomyelitis: (3) Decubitus ulcer of sacral area: QUALIFIERS: Pressure injury stage: stage 4 Qualified Code(s): L 89.154 - Pressure ulcer of sacral region, stage 4 (4) Iron deficiency anemia: (5) Spina bifida: QUALIFIERS: Spinal region: lumbosacral Presence of hydrocephalus: with hydrocephalus Qualified Code(s): Q05.2 - Lumbar spina bifida with hydrocephalus (6) Hypokalemia: (7) Neurogenic bladder: (8) Chronic indwelling Calderon catheter: (9) Seizure disorder: PLAN: Plan 28 year old male with multiple medical problems including a chronic sacral pressure ulcer/chronic osteomyelitis, underwent flap surgery 07/07/[address] Rodriguez, complicated by iron deficiency anemia. Since he does have a big sacral wound with a wound VAC I think will be best to not prep him for your colonoscopy at this time and pursue an upper endoscopy to evaluate his upper GI tract. We would likely perform a push enteroscopy to see if we can evaluate up into his jejunum. N.p.o. past midnight for upper endoscopy tomorrow. Charges/Coding Visit Charges Inpatient E&M: 91546 SNF Init L2
[2024-07-12] MEDS: 0.9% Normal Saline (100mL Bag) 100 ML 15 ML IV (23:31)
[2024-07-13] MEDS: 0.9% Saline Lock 10 ML Syringe IV ×5 (02:48→22:10)
[2024-07-13] MEDS: Meropenem 1 GM in 0.9% Normal Saline (100mL MB+) 100 ML IV ×3 (05:13→22:10)
[2024-07-13 08:52] VITALS: BP 100/62; PULSE 93; RESP 18; O2SAT 100
[2024-07-13 09:19] LABS: Anion Gap 9 (5-15); BUN 15 mg/dL (7-18); BUN/Creat Ratio 20.3 RATIO (10-20); Calcium,Total 9.1 mg/dL (8.5-10.1); Chloride 110 mmol/L (98-107); Creatinine, Serum 0.74 mg/dL (0.70-1.30); EST Glomerular Filtration Rate 131 mL/min (>60); Est Glom Filt Rate - Afr Amer 159 mL/min (>60); Estimated Creatinine Clearance 117.06 ml/min; Glucose 87 mg/dL (74-106); Potassium 3.3 mmol/L (3.5-5.1); Sodium Level 139 mmol/L (136-145)
--- NOTE | 2024-07-13 10:04 | PN.SURG_ITS ---
Subjective Subjective Latonya is now in TCU. He states he is doing well. He is currently NPO for upper endoscopy sometime today. He denies pain at this time. He states that he is trying not to lay on his flalp. Objective Data Objective Data Vital Signs: Vital Signs Temp Pulse Resp BP Pulse Ox O2 Del Method 98.4 F 93 18 100/62 100 Room Air 07/12/24 07:41 07/13/24 08:52 07/13/24 08:52 07/13/24 08:52 07/13/24 08:52 07/13/24 08:52 Oxygen Delivery Method Room Air Weight: 124 lb 15.998 oz Body Mass Index (BMI) 14.8 Intake & Output: Intake and Output for Last 24 Hours 07/11/24 07/12/24 07/13/24 23:59 23:59 23:59 Intake Total 1202 / 1202 540 / 540 240 / 240 Output Total 685 / 685 1230 / 1230 800 / 800 Balance 517 / 517 -690 / -690 -560 / -560 Lab / Micro Data 07/11/24 05:24 07/13/24 07:47 Labs: Laboratory Results - last 24 hr 07/13/24 07:47: Sodium 139, Potassium 3.3 L, Chloride 110 H, Carbon Dioxide 20.0 L, Anion Gap 9, BUN 15, Creatinine 0.74, Estim Creat Clear Calc 117.06, Est GFR (MDRD) Af Amer 159, Est GFR (MDRD) Non-Af 131, BUN/Creatinine Ratio 20.3 H, Glucose 87, Calcium 9.1 Physical Exam Narrative Sacral flap pink with capillary refill<2 seconds. He has a small area on the most distal portion of his incision that has some moisture. Will start placing Aquacel-Ag in this area to help absorb the moisture. Rest of the incision is dry and intact. Drains draining serosanguineous drainage. Const alert, oriented x3 and no apparent distress General Appearance: cooperative Orientation / Consciousness: awake HEENT normocephalic Eyes General Eye: normal appearance of both eyes Neck full ROM Resp normal respiratory effort and normal air movement Effort and Inspection: able to speak in complete sentences Cardio regular rate and regular rhythm GI GI Narrative: colostomy with soft, green stool in bag. Extremity normal to inspection and normal capillary refill Neuro oriented x3 Psych thought process normal and cooperative Assessment & Plan Assessment/Plan (1) Sacral osteomyelitis: (2) Decubitus ulcer of sacral area: QUALIFIERS: Pressure injury stage: stage 4 Qualified Code(s): L 89.154 - Pressure ulcer of sacral region, stage 4 PLAN: Plan Continue pressure offloading and drain care Will add Aquacel-Ag to the small area of moisture on the most distal portion of the incision to help prevent maceration. Change daily and cover entire incision with ABD. Appreciate primary team (transitional care unit) Neuro: Pretty for seizures. Hem/ID: Continue antibiotics per ID and continue SCDs and Lovenox for DVT pxx. Renal: Continue BMPs every other day to monitor kidneys while on broad-spectrum antibiotics GI: Scheduled for upper GI today for further evaluation of his his iron deficiency anemia. PSU to follow Charges/Coding Procedures Integumentary [id number]: [id number] Global Visit
--- NOTE | 2024-07-13 10:32 | NURSING ---
EARLINERN/WOUND NURSE AND SUPERVISOR HAIRSPRING FABRICATION SWINDEL UP TO SEE AND CHANGE PT DRESSING TO BUTTUCK.
--- NOTE | 2024-07-13 13:52 | NURSING ---
dr karol called, unable to do EGD today. pt updated, lunch called to dietary along with supper menu. pt will be NPO after MN tonight for EGD tomorrow.
--- NOTE | 2024-07-13 14:04 | NURSING ---
PT WILL HAVE UPPER EGD DONE ON 07/14/24 AT 6:55 AM. OK TO GIVE KEPPRA AND MERREM. HOLD THE LOVENOX. PT AWARE. WILL CALL HIS FAMILY. RN AWARE
[2024-07-13] MEDS: Potassium Chloride Oral Tablet 20 MEQ PO (14:57)
[2024-07-13] MEDS: Ferrous Sulfate 325 MG Tablet PO (14:58)
--- NOTE | 2024-07-13 15:09 | NURSING ---
Addendum entered by Blayne Traore 07/13/24 16:47: TALKED TO PT MOM MIGUEL ÁNGEL AND UPDATED HER ON HER SON PROCEDURE TOMORROW. MIGUEL ÁNGEL STATED SHE WONT BE HERE FOR PROCEDURE BUT WILL BE IN FOR THE POC AT 10 AM. Original Note: CALLED PT MOM TO UPDATE HER ON PT AND PROCEDURE TOMORROW, NO ANSWER SO LEFT MESSAGE TO CALL THE FLOOR. RN AWARE
[2024-07-13 15:21] VITALS: TEMP 36.4
[2024-07-13] MEDS: Ensure Plus High Protein 120 ML LIQUID PO (16:37)
[2024-07-13] MEDS: Potassium Chloride Oral Tablet 20 MEQ 40 MEQ PO (18:01)
--- NOTE | 2024-07-13 18:33 | NURSING ---
RANJAN DRAINS EMPTIED AT 10AM. 30 CC OUT OF RT SIDE AND 10 CC OUT OF LT SIDE OF SEROSANGUINEOUS DRAINAGE FROM BOTH. PT STRAIGHT CATHS SELF,COLOSTOMY EMPTED. PT TOLERATES WELL.
[2024-07-13 20:00] VITALS: PULSE 93; RESP 16; O2SAT 92
--- NOTE | 2024-07-13 22:00 | NURSING ---
Turn and reposition at this time per pt. request. Patient observed sitting on buttocks/flap, educated on importance of offloading pressure per order to promote healing, verbalizes understanding. RANJAN drains x2 patent, sites without drainage/heat/edema, slight redness. sacral wound dressing dry and intact, denies pain. Assisted to lay on right side per pt. preference. Denies further requests. Call light in reach.
[2024-07-13] MEDS: levETIRAcetam 500 MG Tablet PO (22:08)
[2024-07-13] MEDS: Minocycline 100 MG Capsule PO (22:09)
--- NOTE | 2024-07-14 00:01 | NURSING ---
NPO per order
[2024-07-14] MEDS: 0.9% Saline Lock 10 ML Syringe IV ×6 (02:52→22:00)
[2024-07-14] MEDS: Meropenem 1 GM in 0.9% Normal Saline (100mL MB+) 100 ML IV ×3 (05:37→22:01)
[2024-07-14] MEDS: levETIRAcetam 500 MG Tablet PO ×2 (05:43→22:01)
--- NOTE | 2024-07-14 05:53 | NURSING ---
RANJAN drains stripped per order, right buttock 40mL dark red drainage with clots observed, left buttock 15mL dark red drainage, not clots observed.
--- NOTE | 2024-07-14 06:10 | NURSING ---
Patient off unit with IN STORE REPRESENTATIVE transport x2 in bed to Endo for procedure with Dr. Cheng. IV Merrem infusing per order.
[2024-07-14 06:12] LABS: Anion Gap 10 (5-15); BUN 16 mg/dL (7-18); BUN/Creat Ratio 20.3 RATIO (10-20); Calcium,Total 8.4 mg/dL (8.5-10.1); Chloride 108 mmol/L (98-107); Creatinine, Serum 0.79 mg/dL (0.70-1.30); EST Glomerular Filtration Rate 122 mL/min (>60); Est Glom Filt Rate - Afr Amer 148 mL/min (>60); Estimated Creatinine Clearance 109.65 ml/min; Glucose 89 mg/dL (74-106); Potassium 3.7 mmol/L (3.5-5.1); Sodium Level 139 mmol/L (136-145)
[2024-07-14] MEDS: Potassium Chloride Oral Tablet 20 MEQ PO (09:16)
[2024-07-14] MEDS: Minocycline 100 MG Capsule PO ×2 (09:19→22:01)
[2024-07-14] MEDS: Pantoprazole Sodium 40 MG Tablet PO ×2 (09:21→22:01)
[2024-07-14 09:29] VITALS: BP 98/62; PULSE 86; RESP 16; O2SAT 100
--- NOTE | 2024-07-14 10:11 | CASEMGMT ---
Social Work IDT met with patient and mother for care plan meeting. Discussed patient's progress in PT/OT/ST/SN. Educated to Medicare benefit. Provided mother with written communication on insurance and copay coverage during stay. SW educated to day 21, which is the start of copays, but pt has Medicaid, and pt cannot remain in TCU under [facility] benefit. Day 21 is 07/30 and pt's IV ATB through 08/11. SW inquired to mother if she would be able to learn to administer the ATB three times a day at home, with training, or if pt will need to DC to another SNF for administration. Mother confirmed she can administer and have pt DC home. SW to have nursing coordinate scheduling training with wounds and IV ATB. Mother agreed. Mother denied any other needs at DC, aside from IV ATB. When mother was answering questions for KEG HEADER, she noted when pt gets agitated, he gets anxious, which leads to a seizure. SW explored statement further. Mother and pt reported increased anxiety. SW inquired about medication to assist with stabilization and to start while admitted to monitor for side effects/changes/improvement. Pt and mother agreeable. SW left written communication to for start of anti-anxiety medication. SW will continue to follow for DC planning and support. Sade Hernández ECONOMIC RESEARCH ASSISTANT FILTER WASHER AND PRESSER
--- NOTE | 2024-07-14 10:37 | NURSING ---
PT RETURNED TO FLOOR BY BED AT 0850 FROM PROCEDURE WITH . NEW ORDER FOR PROTONIX 40MG BID. FOUND NON BLEEDING GASTRIC ULCER,BIOPSIED. RETURN TO NORMAL ACTIVITY AND DIET. FOLLOW UP AFTER D/C. VITALS DONE, BREAKFAST GIVEN. WILL CONTINUE TO MONITOR. PT MOTHER IN FOR POC MEETING. UPDATED HER AND PT ON PROCEDURE. PER FLEXO PRESS OPERATOR,MARICRUZ SET UP DAYS TO TEACH PT MOM ON DRESSING CARE AND IV ANTIBIOTICS DUE TO D/C 07/30/24. PT MOM STATED SHE ONLY WANTS 2 DAYS OF TEACHING DUE TO DOING THIS BEFORE. OK DAYS WITH MOTHER ON 07/27/24 AND 07/29/24 AT 1300.
[2024-07-14] MEDS: Alteplase 2 MG/2 ML Vial IV (10:51)
[2024-07-14 11:30] VITALS: PULSE 91; RESP 16; O2SAT 95
--- NOTE | 2024-07-14 12:00 | CASEMGMT ---
Social Work SW inquired to mother if pt has advanced directives and mother denied. Pt cannot complete. Sade Hernández, AUTOMATIC DOOR MECHANIC INSURANCE SPECIALIST
[2024-07-14] MEDS: Ensure Plus High Protein 120 ML LIQUID PO ×2 (12:02→17:11)
[2024-07-14] MEDS: Ferrous Sulfate 325 MG Tablet PO (12:02)
[2024-07-14 14:06] VITALS: BP 98/58; PULSE 91; RESP 16; TEMP 37.2; O2SAT 95
--- NOTE | 2024-07-14 15:24 | NURSING ---
AT 1130AM DRESSING CHANGED TO BUTTOCKS PER ORDER. NO S/S OF INFECTION,NO DRAINAGE. RANJAN TUBBING STRIPPED AND BULBS EMPTIED PER ORDER. RT HAD 20 DK RED DRAINAGE AND LT HAD 20 REDDISH ORANGE DRAINAGE. NO CLOTS. SUTURES INTACT ON WOUND AREA AND AREAS TUBING TO BUTTOCKS. COLOSTOMY EMPTIED,LINEN TO BED CHANGE AND PT GOWN CHANGED. PT TOLERATED WELL.
[2024-07-14 15:46] VITALS: BP 101/56; PULSE 91; TEMP 37.1
[2024-07-14] MEDS: Citalopram 10 MG Tablet PO (17:11)
[2024-07-15] MEDS: 0.9% Saline Lock 10 ML Syringe IV ×5 (01:50→21:51)
--- NOTE | 2024-07-15 03:55 | NURSING ---
RANJAN drains stripped per order, right RANJAN drain emptied with 15mL dark red drainage and small clots observed, left RANJAN drain 25mL dark red drainage, no clots observed. RANJAN sites remain without heat/edema/or drainage, slight redness remains to insertion sites. T&R Q2H and upon patient request
[2024-07-15] MEDS: Enoxaparin 40 MG/0.4 ML Syringe SC (06:00)
[2024-07-15] MEDS: Meropenem 1 GM in 0.9% Normal Saline (100mL MB+) 100 ML IV ×3 (06:00→21:52)
--- NOTE | 2024-07-15 09:13 | PN_ITS ---
Subjective Subjective Latonya is now in TCU and continues pressure offloading. Had upper GI scope yesterday, no active bleeding. Objective Data Objective Data Vital Signs: Vital Signs Temp Pulse Resp BP Pulse Ox O2 Del Method 98.7 F 91 16 101/56 L 95 Room Air 07/14/24 15:46 07/14/24 15:46 07/14/24 14:06 07/14/24 15:46 07/14/24 14:06 07/14/24 14:06 Oxygen Delivery Method Room Air Weight: 124 lb 15.998 oz Body Mass Index (BMI) 14.8 Intake & Output: Intake and Output for Last 24 Hours 07/13/24 07/14/24 07/15/24 23:59 23:59 23:59 Intake Total 643.50 / 643.50 969.25 / 969.25 120 / 120 Output Total 2039 / 2039 995 / 995 Balance -1396.50 / -1396.50 -25.75 / -25.75 120 / 120 Lab / Micro Data 07/11/24 05:24 07/14/24 05:36 Physical Exam Narrative Flap healthy, normal color with capillary refill <2 seconds. RANJAN drains draining serosanguineous drainage. Const alert General Appearance: cooperative Orientation / Consciousness: awake HEENT normocephalic Eyes General Eye: normal appearance of both eyes Neck full ROM Resp normal respiratory effort and normal air movement Effort and Inspection: able to speak in complete sentences Cardio regular rate and regular rhythm GI GI Narrative: colostomy with soft, brown stool in bag. Extremity normal to inspection and normal capillary refill Neuro oriented x3 Assessment & Plan Assessment/Plan (1) Sacral osteomyelitis: (2) Decubitus ulcer of sacral area: QUALIFIERS: Pressure injury stage: stage 4 Qualified Code(s): L 89.154 - Pressure ulcer of sacral region, stage 4 PLAN: Plan Continue pressure offloading and drain care Appreciate primary team (transitional care unit) Neuro: Sergeyppra for seizures. Hem/ID: Continue antibiotics per ID and continue SCDs and Lovenox for DVT pxx. Renal: Continue BMPs every other day to monitor kidneys while on broad-spectrum antibiotics PSU to follow Charges/Coding Procedures Integumentary 111xxx-113xx: [id number] Global Visit
--- NOTE | 2024-07-15 09:31 | WOUNDNOTE ---
wound photo: sacrum
--- NOTE | 2024-07-15 09:31 | WOUNDNOTE ---
wound photo: sacrum
[2024-07-15] MEDS: Potassium Chloride Oral Tablet 20 MEQ PO (09:39)
[2024-07-15] MEDS: Citalopram 10 MG Tablet PO (09:39)
[2024-07-15] MEDS: levETIRAcetam 500 MG Tablet PO ×2 (09:39→21:43)
[2024-07-15] MEDS: Pantoprazole Sodium 40 MG Tablet PO ×2 (09:40→21:43)
[2024-07-15] MEDS: Minocycline 100 MG Capsule PO ×2 (09:41→21:43)
[2024-07-15 09:48] VITALS: BP 99/71; PULSE 90; RESP 16; O2SAT 100
--- NOTE | 2024-07-15 09:56 | CASEMGMT ---
Social Work SW placed referral for Care Coordination program through [facility] website for possible assistance in the home for pt and parents. Sade Hernández, HEAD OF TRANSPORT LOGISTICS EDUCATIONAL ADMINISTRATOR
[2024-07-15] MEDS: Ensure Plus High Protein 120 ML LIQUID PO (11:44)
[2024-07-15] MEDS: Ferrous Sulfate 325 MG Tablet PO (11:45)
[2024-07-15] MEDS: Senna/Docusate Sodium 1 Tablet PO (15:28)
--- NOTE | 2024-07-15 15:45 | NURSING ---
DRAIN TUBING STRIPPED PER ORDER. RT DRAIN HAD 20CC WITH ORANGE IN COLOR AND CLOTS. LT DRAIN HAD 10CC ORANGE IN COLOR WITH CLOTS. PRN SENNA GIVEN DO TO STOOL THICK AND STICKY DK BROWN. PT ALSO STATED HIS STOMACH HURT WITH GAS. RAMILA PATTEN/WOUND NURSE AND DR IN TO SEE PT AND CHANGE DRESSING TO BUTTOCKS.
[2024-07-15 16:00] VITALS: TEMP 36.6
[2024-07-16] MEDS: Enoxaparin 40 MG/0.4 ML Syringe SC (05:40)
[2024-07-16] MEDS: Meropenem 1 GM in 0.9% Normal Saline (100mL MB+) 100 ML IV ×3 (05:45→21:55)
[2024-07-16] MEDS: 0.9% Saline Lock 10 ML Syringe IV ×2 (05:45→21:55)
--- NOTE | 2024-07-16 08:17 | NURSING ---
Discussed covid vaccine with resident on 07/12/24- he reports his physician told him not to get any vaccines.
[2024-07-16 09:33] VITALS: BP 109/66; PULSE 80; RESP 18; TEMP 36.2; O2SAT 99
[2024-07-16] MEDS: Citalopram 10 MG Tablet PO (09:42)
[2024-07-16] MEDS: Potassium Chloride Oral Tablet 20 MEQ PO (09:45)
[2024-07-16] MEDS: levETIRAcetam 500 MG Tablet PO ×2 (09:47→21:55)
[2024-07-16] MEDS: Minocycline 100 MG Capsule PO ×2 (09:47→21:55)
[2024-07-16] MEDS: Pantoprazole Sodium 40 MG Tablet PO ×2 (09:48→21:55)
--- NOTE | 2024-07-16 09:53 | MDS.RN ---
MDS pain assessment completed.
[2024-07-16 10:00] VITALS: PULSE 80; RESP 18; O2SAT 99
[2024-07-16] MEDS: Ferrous Sulfate 325 MG Tablet PO (12:35)
[2024-07-16] MEDS: Ensure Plus High Protein 120 ML LIQUID PO ×2 (12:35→17:19)
--- NOTE | 2024-07-16 13:30 | PCM.PROGNOTE ---
Subjective Subjective Latonya is now in TCU and continues pressure offloading. Had upper GI scope yesterday, no active bleeding. Objective Data Objective Data Vital Signs: Vital Signs Temp Pulse Resp BP Pulse Ox O2 Del Method 97.2 F L 80 18 109/66 99 Room Air 07/16/24 09:33 07/16/24 10:00 07/16/24 10:00 07/16/24 09:33 07/16/24 10:00 07/16/24 10:00 Oxygen Delivery Method Room Air Weight: 124 lb 15.998 oz Body Mass Index (BMI) 14.8 Intake & Output: Intake and Output for Last 24 Hours 07/14/24 07/15/24 07/16/24 23:59 23:59 23:59 Intake Total 969.25 / 969.25 854.25 / 854.25 240 / 240 Output Total 995 / 995 2330 / 2930 1250 / 1250 Balance -25.75 / -25.75 -1475.75 / -2075.75 -1010 / -1010 Lab / Micro Data 07/11/24 05:24 07/14/24 05:36 Physical Exam Narrative Flap healthy, normal color with capillary refill <2 seconds. RANJAN drains draining serosanguineous drainage. Const alert General Appearance: cooperative Orientation / Consciousness: awake HEENT normocephalic Eyes General Eye: normal appearance of both eyes Neck full ROM Resp normal respiratory effort and normal air movement Effort and Inspection: able to speak in complete sentences Cardio regular rate and regular rhythm GI GI Narrative: colostomy with soft, brown stool in bag. Extremity normal to inspection and normal capillary refill Neuro oriented x3 Assessment & Plan Assessment/Plan (1) Sacral osteomyelitis: (2) Decubitus ulcer of sacral area: QUALIFIERS: Pressure injury stage: stage 4 Qualified Code(s): L89.154 - Pressure ulcer of sacral region, stage 4 PLAN: Plan Continue pressure offloading and drain care Appreciate primary team (transitional care unit) Neuro: Sergeyppra for seizures. Hem/ID: Continue antibiotics per ID and continue SCDs and Lovenox for DVT pxx. Renal: Continue BMPs every other day to monitor kidneys while on broad-spectrum antibiotics PSU to follow Charges/Coding Procedures Integumentary 111xxx-113xx: [id number] Global Visit
[2024-07-16 13:45] VITALS: PULSE 80; RESP 18; O2SAT 99
--- NOTE | 2024-07-16 14:28 | CASEMGMT ---
Social Work SW completed BIMS (03/30) and PHQ-2 () for MDS assessment. Sade Hernández MANAGER QUALITY IMPROVEMENT AEROSPACE CONTROL AND WARNING SYSTEMS
[2024-07-17] MEDS: Enoxaparin 40 MG/0.4 ML Syringe SC (06:26)
[2024-07-17] MEDS: Meropenem 1 GM in 0.9% Normal Saline (100mL MB+) 100 ML IV ×3 (06:27→22:20)
[2024-07-17] MEDS: Potassium Chloride Oral Tablet 20 MEQ PO (09:00)
[2024-07-17] MEDS: Citalopram 10 MG Tablet PO (09:00)
[2024-07-17] MEDS: Minocycline 100 MG Capsule PO ×2 (09:01→22:19)
[2024-07-17] MEDS: levETIRAcetam 500 MG Tablet PO ×2 (09:01→22:19)
[2024-07-17] MEDS: Pantoprazole Sodium 40 MG Tablet PO (09:01)
[2024-07-17 10:58] VITALS: BP 95/62; PULSE 83; RESP 18; TEMP 36.9; O2SAT 96
--- NOTE | 2024-07-17 11:10 | NURSING ---
DIGITAL MEDIA INTERN REPORTED PT C/O DECREASED APPETITE FEELS ITS FROM PROTONIX, DR HERNANDEZ NOTIFIED, NEW ORDER TO DC PROTONIX & START LANSOPRAZOLE BID
--- NOTE | 2024-07-17 11:23 | PCM.PN.BLA ---
Progress Note Reports that he's been doing his best to pressure offload and to work with therapy while in rehab. No complaints today. Physical Exam Narrative Flap healthy, normal color with capillary refill <2 seconds. Two small areas of dehiscence on the medial and lateral aspects of the incisions. RANJAN drains draining serosanguineous drainage. They strip well. 50 and 50 past 24 hours. Const alert General Appearance: cooperative Orientation / Consciousness: awake HEENT normocephalic Eyes General Eye: normal appearance of both eyes Neck full ROM Resp normal respiratory effort and normal air movement Effort and Inspection: able to speak in complete sentences Cardio regular rate GI GI Narrative: colostomy with soft, brown stool in bag. Extremity normal to inspection and normal capillary refill Neuro oriented x3 Assessment & Plan Assessment/Plan (1) Sacral osteomyelitis: (2) Decubitus ulcer of sacral area: QUALIFIERS: Pressure injury stage: stage 4 Qualified Code(s): L89.154 - Pressure ulcer of sacral region, stage 4 PLAN: Plan Continue pressure offloading and drain care Appreciate primary team (transitional care unit) Neuro: Pretty for seizures. Hem/ID: Continue antibiotics per ID and continue SCDs and Lovenox for DVT pxx. Renal: Continue BMPs every other day to monitor kidneys while on broad-spectrum antibiotics PSU to follow
[2024-07-17] MEDS: Ensure Plus High Protein 120 ML LIQUID PO ×2 (11:37→17:06)
[2024-07-17] MEDS: Ferrous Sulfate 325 MG Tablet PO (11:37)
--- NOTE | 2024-07-17 14:12 | NURSING ---
Patient complaining of poor intake and states he has not been eating a lot due to decreased appetite. Patient was asked if he was just not feeling hungry or if he did not like his food. Patient reports that he likes his food and that he is just not hungry. When asked if his intake has been less than what he normally ate at home he reports that it has not been and that he has been eating about the same. Awhile later he reported that his appetite has decreased since starting protonix. Dr. An updated and medication changed to lansoprazole. Nurse went in to turn and reposition and start IV antibiotics. Colostomy bag assessed and noted to be half full of stool. This nurse explained to patient that she was going to empty colostomy bag. Patient refused stating No I do not want it emptied right now, just leave it alone. I haven't had any output from my colostomy bag. This nurse explained that there was output and that the bag was half full. Explained to patient that when colotomy gets overly full it can cause the colostomy system to separate and need changed. Patient proceeded to ask why there was not a lot of output. This nurse explained that patient did have half of a bag of loose stool in his colostomy bag at this time but if his intake is low there may not be a large amount of output. Patient reported at this time that he has a low appetite because he does not like the food and that he ate more at home stating information different from the morning assessment on intake. Abdomen soft, non-distended, and non tender, bowel sounds normoactive x4 quadrants no acute concerns observed or reported no s/s of distress noted. PRN merrillna was offered and refused at this time.
[2024-07-17] MEDS: Senna/Docusate Sodium 1 Tablet PO (17:06)
[2024-07-17] MEDS: Lansoprazole 15 MG Capsule.DR 30 MG PO (22:20)
[2024-07-18] MEDS: Enoxaparin 40 MG/0.4 ML Syringe SC (06:15)
[2024-07-18] MEDS: Meropenem 1 GM in 0.9% Normal Saline (100mL MB+) 100 ML IV ×3 (06:15→21:29)
[2024-07-18] MEDS: 0.9% Saline Lock 10 ML Syringe IV ×3 (06:16→21:29)
[2024-07-18] MEDS: Citalopram 10 MG Tablet PO (09:30)
[2024-07-18] MEDS: Minocycline 100 MG Capsule PO ×2 (09:30→21:30)
[2024-07-18] MEDS: Lansoprazole 15 MG Capsule.DR 30 MG PO ×2 (09:30→21:30)
[2024-07-18] MEDS: Potassium Chloride Oral Tablet 20 MEQ PO (09:30)
[2024-07-18] MEDS: levETIRAcetam 500 MG Tablet PO ×2 (09:30→21:30)
--- NOTE | 2024-07-18 09:57 | NURSING ---
Patient continuously refusing AM care. Multiple attempts to provide AM care for patient offered. Patient states, I do not need to be cleaned up. Reported to ARNEL Smyth.
[2024-07-18 10:48] LABS: Absolute Lymphocyte Count 1.38 X10^3/uL (0.83-4.51); Absolute Neutrophil Count 6.1 X10^3/uL (2.0-7.7); Basophil# 0.05 X10^3/uL; Basophil% 0.6 % (0-1); Eosinophil# 0.21 X10^3/uL; Eosinophils% 2.5 % (0-5); Hemoglobin 11.1 g/dL (13.0-16.5); Lymphocyte # 1.38 X10^3/ul (0.83-4.51); Lymphocyte % 16.5 % (19-41); Mean Corp Hgb Conc 29.2 g/dL (32-36); Mean Corpuscular Volume 75.4 fL (80-94); Monocyte# 0.54 X10^3/uL; Monocyte% 6.5 % (0-10); NRBC Flagged by Analyzer 0 % (0-5); Neutrophil # 6.07 X10^3/uL (2.7-7.7); Neutrophil % 72.8 % (47-70); POSITIVE MORPHOLOGY YES; Platelet Count 468 K/mm3 (150-450); RBC Distribution Width CV 25.5 % (11.6-14.6); RBC Distribution Width SD 65.7 fl (35.1-43.9); Red Blood Count 5.04 M/mm3 (4.6-6.2); White Blood Count 8.3 K/mm3 (4.4-11.0)
[2024-07-18 10:52] LABS: Differential Indicated SCAN CRITERIA MET
[2024-07-18 10:57] LABS: Anion Gap 7 (5-15); BUN 38 mg/dL (7-18); BUN/Creat Ratio 53.3 RATIO (10-20); Calcium,Total 9.1 mg/dL (8.5-10.1); Chloride 106 mmol/L (98-107); Creatinine, Serum 0.71 mg/dL (0.70-1.30); EST Glomerular Filtration Rate 137 mL/min (>60); Est Glom Filt Rate - Afr Amer 166 mL/min (>60); Glucose 100 mg/dL (74-106); Potassium 3.4 mmol/L (3.5-5.1); Sodium Level 138 mmol/L (136-145)
[2024-07-18 11:03] LABS: Bacteria 0 SEEN /hpf (None Seen); Squamous Epithelial Cells - UA 0 SEEN /hpf (0-5)
[2024-07-18 11:06] LABS: Color, Urine Yellow (Yellow); Glucose, Dipstick Normal (Normal); Ketone-Dipstick 5 mg/dl (Negative); Leukocyte Esterase-Dipstick 100 /ul (Negative); Nitrite-Dipstick Negative (Negative); Occult Blood-Urine 150 /ul (Negative); Protein-Dipstick 30 mg/dl (Negative); Urine Bilirubin Dipstick Negative (Negative); Urine Clarity Cloudy (Clear); Urine Urobilinogen Normal (Normal)
[2024-07-18 11:13] LABS: White Blood Cells 25-50 SEEN /hpf (0-5)
[2024-07-18 11:14] LABS: Red Blood Cells-Urine 5-10 SEEN /hpf (0-5)
[2024-07-18 11:15] LABS: Amorphous Sediment 3+; Mucous, Urine 1+ /hpf (<or=2+)
[2024-07-18 11:17] LABS: Fine Granular Cast- Urine 0-5 SEEN /lpf (0-5); Hyaline Cast 0-5 SEEN /lpf (0-5); White Cell Cast 0-5 SEEN /lpf (None Seen)
[2024-07-18 11:25] LABS: Anisocytosis 2+; Ovalocyte 1+; Platelet Estimate SLT INC (ADEQ); Polychromasia 1+; Tear Drop Cell 1+
[2024-07-18] MEDS: Ensure Plus High Protein 120 ML LIQUID PO ×2 (12:22→17:10)
[2024-07-18] MEDS: Ferrous Sulfate 325 MG Tablet PO (12:22)
[2024-07-18] MEDS: Tuberculin,Purif.prot.deriv. 50 TU/ML Vial 0.1 ML ID (12:23)
[2024-07-18] MEDS: 0.9% Normal Saline (100mL Bag) 100 ML 15 ML IV (13:37)
--- NOTE | 2024-07-18 15:02 | PN_ITS ---
Subjective Subjective Patient reportedly having some issues with compliance with nursing staff. Was declining a straight cath and also reportedly not eating well and refusing food. I talked the patient on rounds today. He agreed to a bladder scan and a straight cath. There was 700 cc. He agreed to eat and continue to pressure offload. He reports that he is just getting frustrated. CT scan was also ordered as the patient was having some formed stool coming out of his anus and there was concern about this from the nursing staff since he had a diverting ostomy. The CT scan demonstrated a small fluid collection beneath the flap, but on my physical exam there is no signs of an abscess as I think this is just a pocket of fluid that is being drained by the drains. I talked to Dr. An who is the primary physician at the rehab floor (TCU, transitional care unit), and he is in agreement with the patient staying. Objective Data Objective Data Vital Signs: Vital Signs Temp Pulse Resp BP Pulse Ox O2 Del Method 98.4 F 83 18 95/62 96 Room Air 07/17/24 10:58 07/17/24 10:58 07/17/24 10:58 07/17/24 10:58 07/17/24 10:58 07/17/24 19:30 Oxygen Delivery Method Room Air Weight: 124 lb 15.998 oz Body Mass Index (BMI) 14.8 Intake & Output: Intake and Output for Last 24 Hours 07/16/24 07/17/24 07/18/24 23:59 23:59 23:59 Intake Total 733 / 733 720 / 720 480 / 480 Output Total 3650 / 3650 1030 / 1030 100 / 100 Balance -2917 / -2917 -310 / -310 380 / 380 Lab / Micro Data 07/18/24 10:34 07/18/24 10:34 Labs: Laboratory Results - last 24 hr 07/18/24 10:34: WBC 8.3, RBC 5.04, Hgb 11.1 L, Hct 38.0 L, MCV 75.4 L, MCH 22.0 L, MCHC 29.2 L, RDW Std Deviation 65.7 H, RDW Coeff of Cathy 25.5 H, Plt Count 468 H, MPV 9.0, Immature Gran % (Auto) 1.100 H, Neut % (Auto) 72.8 H, Lymph % (Auto) 16.5 L, [place] % (Auto) 6.5, Eos % (Auto) 2.5, Baso % (Auto) 0.6, Absolute Neuts (auto) 6.1, Absolute Lymphs (auto) 1.38, Nucleated RBC % 0, Platelet Estimate SLT INC, Polychromasia 1+, Anisocytosis 2+, Tear Drop Cells 1+, Ovalocytes 1+, Sodium 138, Potassium 3.4 L, Chloride 106, Carbon Dioxide 25.0, Anion Gap 7, BUN 38 H, Creatinine 0.71, Estim Creat Clear Calc 122.00, Est GFR (MDRD) Af Amer 166, Est GFR (MDRD) Non-Af 137, BUN/Creatinine Ratio 53.3 H, Glucose 100, Calcium 9.1 07/18/24 10:55: Urine Color Yellow, Urine Clarity Cloudy, Urine pH 7.0, Ur Specific Mallie 1.010, Urine Protein 30 H, Urine Glucose (UA) Normal, Urine Ketones 5 H, Urine Occult Blood 150 H, Urine Nitrite Negative, Urine Bilirubin Negative, Urine Urobilinogen Normal, Ur Leukocyte Esterase 100 H, Urine RBC 5-10 SEEN, Urine WBC 25-50 SEEN, Ur Squamous Epith Cells 0 SEEN, Amorphous Sediment 3+, Urine Bacteria 0 SEEN, Hyaline Casts 0-5 SEEN, Fine Granular Casts 0-5 SEEN, WBC Casts 0-5 SEEN, Urine Mucus 1+ Physical Exam Narrative Flap healthy, normal color with capillary refill <2 seconds. Two small areas of dehiscence on the medial and lateral aspects of the incisions. These areas are stable RANJAN drains draining serosanguineous drainage. They strip well. Drains are about 50 and 50 over the past 24 hours. Const alert General Appearance: cooperative Orientation / Consciousness: awake HEENT normocephalic Eyes General Eye: normal appearance of both eyes Neck full ROM Resp normal respiratory effort and normal air movement Effort and Inspection: able to speak in complete sentences Cardio regular rate GI GI Narrative: colostomy with soft, brown stool in bag. Abdomen is soft and nontender Anus is healthy appearing and no signs of drainage or fistula. No bleeding. Extremity normal to inspection and normal capillary refill Neuro oriented x3 Assessment & Plan Assessment/Plan (1) Sacral osteomyelitis: (2) Decubitus ulcer of sacral area: QUALIFIERS: Pressure injury stage: stage 4 Qualified Code(s): L 89.154 - Pressure ulcer of sacral region, stage 4 PLAN: Plan Continue pressure offloading and drain care Appreciate primary team (transitional care unit) Continue to work on physical therapy while taking care to pressure offload. Neuro: Keppra for seizures. Hem/ID: Continue antibiotics per ID and continue SCDs and Lovenox for DVT pxx. Renal: Continue BMPs every other day to monitor kidneys while on broad-spectrum antibiotics PSU to follow Charges/Coding Procedures Integumentary 111xxx-113xx: 11780 Global Visit
[2024-07-18 15:40] VITALS: BP 109/69; PULSE 88; RESP 17; TEMP 36.8; O2SAT 97
--- NOTE | 2024-07-18 18:07 | NURSING ---
Entered patient's room to bladder scan patient. Scanned bladder for 415cc of urine in bladder. Discussed the need to straight cath patient. Patient declines need for straight cath. Discussed and reviewed the risk of infection if patient is does not empty bladder. Patient states I don't straight cath until I'm leaking. Again, reinforced the risk of infection if urine remains sitting in the bladder. Patient refuses and states I don't want to use all my supplies up. RN discussed placing a Calderon catheter that stays in place to avoid using pt's own supplies. Patient refuses. Will continue to provide education and reinforce the importance of bladder emptying with patient. Call light within reach.
--- NOTE | 2024-07-18 18:46 | NURSING ---
Staff reported that resident had a large amount of stool passed from rectum throughout the night. Upon assessment this morning a small amount of stool noted to his dressing on his bottom, dressing was changed per order. This nurse asked resident if he was having urine output per normal, in which he reported he was. Minimal stool noted in colostomy bag. Resident was unable to verbalize how much urine output he has said. Dr. An updated on suspected low urine output, stool from rectum, and poor intake. N.O. CT with contrast of abdomen and pelvis, U/A C&S, CBC/BMP, and bladder scan. Bladder scan was over 800 and resident was instructed to straight cath. Minimal urine removed when straight cath was inserted. Resident refused vaca catheter and became upset stating he will continue to straight cath as he has been.Dr. An updated N.O. to irrigate straight that with NSS 60cc prn, Straight cath irrigated and a 710cc of cloudy yellow urine with blood clots, mucus, and sediment collected, rebladder scanned for [address] performed [address] An updated on results, N.O. to send to ED for eval for possible abcess so Dr. Rodriguez could be consulted. At this time Dr. Rodriguez came on floor to assess another patient and this nurse updated him on CT results. Dr. Rodriguez went to assess patient reviewed CT and has no concerns at this time and would like to keep the plan of care as scheduled. This nurse explained concerns with low colostomy output and bladder retention when in room and showed Dr. Rodriguez the colostomy bag. Dr. Rodriguez stated he was not concerned with the output at this time and after reviewing CT, labs, and assessed patient and did not think a trip to ED was warranted at this time and that he would update Dr. An. Dr. An then called TCU staff and stated cancel order to send to ED, ok for resident to remain on TCU. Dr. An updated on vaca refusal and stated if resident is able to empty himself suffiecently via straight cath he was ok with not placing a vaca at this time. Resident bladder scanned again around 1545 for 646 and resident was instructed to self cath again at this time with nurse at bedside. 625cc of straw colored urine with sediment and blood clots noted, rebladder scanned for 146cc. Resident rebladderscanned at 1805 for over 400cc, resident stated he would not self cath again until the urine is leaking out of his stomach because he is not going to waste his supplies. Message left for Dr. An with an update to review on refusing straight caths.
--- NOTE | 2024-07-18 22:10 | NURSING ---
Patient encouraged to cath at this time, offered assist. Patient refuses at this time. Not now. No distress observed or reported. Colostomy emptied with moderate amount of dark brown soft stool. IV ATB infusing per orde,. No adverse effects observed or reported, no rash, no gi distress.. Denies requests. Call light in reach. Patient encouraged to utilize call light at any time for staff assist, verbalizes understanding.
[2024-07-19] MEDS: Enoxaparin 40 MG/0.4 ML Syringe SC (05:15)
[2024-07-19] MEDS: 0.9% Saline Lock 10 ML Syringe IV ×2 (05:16→22:22)
[2024-07-19] MEDS: Meropenem 1 GM in 0.9% Normal Saline (100mL MB+) 100 ML IV ×3 (05:16→22:44)
--- NOTE | 2024-07-19 05:31 | NURSING ---
right RANJAN drain stripped and emptied per order, serosang drainage small clots observed 25mL, left RANJAN drain stripped and emptied, serosang draianage, no clots, 15mL. Repositioned for comfort per request. Refused bladder scan and offer to assist with straight cath, not right now despite education and encouragement. Pt. agrees to straight cath by breakfast. Denies requests. Call light in reach.
[2024-07-19 06:20] LABS: AST(SGOT) 16 U/L (15-37); Alanine Aminotransfer ALT/SGPT 15 U/L (16-61); Albumin, Serum 2.5 g/dL (3.2-5.0); Alkaline Phosphatase 88 U/L (45-117); Anion Gap 7 (5-15); BUN 31 mg/dL (7-18); BUN/Creat Ratio 36.5 RATIO (10-20); Calcium,Total 8.8 mg/dL (8.5-10.1); Chloride 107 mmol/L (98-107); Creatinine, Serum 0.85 mg/dL (0.70-1.30); EST Glomerular Filtration Rate 112 mL/min (>60); Est Glom Filt Rate - Afr Amer 135 mL/min (>60); Estimated Creatinine Clearance 101.91 ml/min; Globulin 4.4 g/dL (2.2-4.2); Glucose 98 mg/dL (74-106); Potassium 3.1 mmol/L (3.5-5.1); Protein, Total 6.9 g/dL (6.4-8.2); Sodium Level 140 mmol/L (136-145)
[2024-07-19 07:34] LABS: Erythrocyte Sedimentation Rate 22 mm/hr (0-20)
[2024-07-19 07:55] LABS: Absolute Lymphocyte Count 2.33 X10^3/uL (0.83-4.51); Basophil# 0.09 X10^3/uL; Eosinophil# 0.48 X10^3/uL; Eosinophils% 5.5 % (0-5); Hematocrit 37.6 % (40-54); Lymphocyte # 2.33 X10^3/ul (0.83-4.51); Lymphocyte % 26.8 % (19-41); Mean Corp Hgb Conc 29.3 g/dL (32-36); Mean Corpuscular Hgb 22.7 pg (27.0-32.0); Mean Corpuscular Volume 77.5 fL (80-94); Mean Platelet Vol. 9.5 fl (6.2-12.0); Monocyte% 8.1 % (0-10); NRBC Flagged by Analyzer 0 % (0-5); Neutrophil # 4.97 X10^3/uL (2.7-7.7); Neutrophil % 57.2 % (47-70); POSITIVE MORPHOLOGY YES; Platelet Count 501 K/mm3 (150-450); RBC Distribution Width CV 26.4 % (11.6-14.6); RBC Distribution Width SD 69.8 fl (35.1-43.9); Red Blood Count 4.85 M/mm3 (4.6-6.2); White Blood Count 8.7 K/mm3 (4.4-11.0)
[2024-07-19 07:59] LABS: Differential Indicated SCAN CRITERIA MET
[2024-07-19 08:14] VITALS: BP 103/67; PULSE 66; RESP 14; TEMP 36.9; O2SAT 98
--- NOTE | 2024-07-19 08:35 | NURSING ---
Operations Professional Note; MDS for 07/17/2024 Complete
[2024-07-19] MEDS: Potassium Chloride Oral Tablet 20 MEQ PO ×2 (09:35→17:35)
[2024-07-19] MEDS: Citalopram 10 MG Tablet PO (09:37)
[2024-07-19] MEDS: levETIRAcetam 500 MG Tablet PO ×2 (09:37→22:24)
[2024-07-19] MEDS: Lansoprazole 15 MG Capsule.DR 30 MG PO ×2 (09:38→22:24)
[2024-07-19] MEDS: Minocycline 100 MG Capsule PO ×2 (09:40→22:26)
[2024-07-19] MEDS: Potassium Chloride Oral Tablet 20 MEQ 40 MEQ PO (09:47)
[2024-07-19 10:00] VITALS: PULSE 66; RESP 14; O2SAT 98
[2024-07-19 10:52] LABS: Anisocytosis 1+
[2024-07-19] MEDS: Ferrous Sulfate 325 MG Tablet PO (12:02)
[2024-07-19] MEDS: Ensure Plus High Protein 120 ML LIQUID PO ×3 (12:02→22:23)
--- NOTE | 2024-07-19 12:45 | NURSING ---
Dr. Rodriguez in to visit with patient at this time. Dr. Rodriguez removed right buttock drain. Area left PRICING SUPERVISOR.
--- NOTE | 2024-07-19 13:22 | PN_ITS ---
Subjective Subjective Has been pressure offloading and eating high protein. Objective Data Objective Data Vital Signs: Vital Signs Temp Pulse Resp BP Pulse Ox O2 Del Method 98.5 F 66 14 103/67 98 Room Air 07/19/24 08:14 07/19/24 10:00 07/19/24 10:00 07/19/24 08:14 07/19/24 10:00 07/19/24 10:00 Oxygen Delivery Method Room Air Weight: 124 lb 15.998 oz Body Mass Index (BMI) 14.8 Intake & Output: Intake and Output for Last 24 Hours 07/17/24 07/18/24 07/19/24 23:59 23:59 23:59 Intake Total 720 / 720 658.75 / 658.75 640 / 640 Output Total 1030 / 1030 1470 / 2270 1185 / 1185 Balance -310 / -310 -811.25 / -1611.25 -545 / -545 Lab / Micro Data 07/19/24 05:06 07/19/24 05:06 Labs: Laboratory Results - last 24 hr 07/19/24 05:06: WBC 8.7, RBC 4.85, Hgb 11.0 L, Hct 37.6 L, MCV 77.5 L, MCH 22.7 L, MCHC 29.3 L, RDW Std Deviation 69.8 H, RDW Coeff of Cathy 26.4 H, Plt Count 501 H, MPV 9.5, Immature Gran % (Auto) 1.400 H, Neut % (Auto) 57.2, Lymph % (Auto) 26.8, [place] % (Auto) 8.1, Eos % (Auto) 5.5 H, Baso % (Auto) 1.0, Absolute Neuts (auto) 5.0, Absolute Lymphs (auto) 2.33, Nucleated RBC % 0, Anisocytosis 1+, ESR 22 H, Sodium 140, Potassium 3.1 L, Chloride 107, Carbon Dioxide 26.0, Anion Gap 7, BUN 31 H, Creatinine 0.85, Estim Creat Clear Calc 101.91, Est GFR (MDRD) Af Amer 135, Est GFR (MDRD) Non-Af 112, BUN/Creatinine Ratio 36.5 H, Glucose 98, Calcium 8.8, Total Bilirubin 0.20, Direct Bilirubin 0.10, AST 16, ALT 15 L, Alkaline Phosphatase 88, Total Protein 6.9, Albumin 2.5 L, Globulin 4.4 H Physical Exam Narrative Flap healthy, normal color with capillary refill <2 seconds. Two small areas of dehiscence on the medial and lateral aspects of the incisions. These areas are stable RANJAN drains draining serosanguineous drainage, no purulence.. They strip well. Drains are about 10 and 15 over the past 24 hours. Donor site drain removed. Const alert General Appearance: cooperative Orientation / Consciousness: awake HEENT normocephalic Eyes General Eye: normal appearance of both eyes Neck full ROM Resp normal respiratory effort and normal air movement Effort and Inspection: able to speak in complete sentences Cardio regular rate GI GI Narrative: colostomy with soft, brown stool in bag. Abdomen is soft and nontender Anus is healthy appearing and no signs of drainage or fistula. No bleeding. Extremity normal to inspection and normal capillary refill Neuro oriented x3 Assessment & Plan Assessment/Plan (1) Sacral osteomyelitis: (2) Decubitus ulcer of sacral area: QUALIFIERS: Pressure injury stage: stage 4 Qualified Code(s): L 89.154 - Pressure ulcer of sacral region, stage 4 PLAN: Plan Continue pressure offloading and drain care No signs of infection today Appreciate primary team (transitional care unit) Continue to work on physical therapy while taking care to pressure offload. Neuro: Keppra for seizures. Hem/ID: Continue antibiotics per ID and continue SCDs and Lovenox for DVT pxx. Renal: Continue BMPs every other day to monitor kidneys while on broad-spectrum antibiotics PSU to follow Charges/Coding Procedures Integumentary 111xxx-113xx: 78406 Global Visit
[2024-07-19 13:30] VITALS: PULSE 66; RESP 14; O2SAT 98
--- NOTE | 2024-07-19 13:30 | NURSING ---
This nurse in patients room to administer medications per orders. Patient stated he would like to try to cath while nurse was there. Assisted patient with opening cath and held urinal until patient was able to have urine output. Patient held urinal by self after inital urine output. Noted 150cc of straw colored urine. Offer patient to bladder scan to ensure we removed all the urine. Bladder scan preformed and noted 117ml residual.
--- NOTE | 2024-07-19 14:52 | NURSING ---
Dr. An in this morning, new orders received. 1) Potassium 40mEq x1 dose- now. 2) Potassium 20 mEq- BID. 3) Remeron 7.5mg daily at HS. Patient updated on all new orders.
--- NOTE | 2024-07-19 17:41 | NURSING ---
Dr. An updated on facial rash and new order received. 1) Lotrisone cream- apply small amount to face BID. Patient aware of new order.
[2024-07-19] MEDS: Clotrimazole/Betamethasone 1 Tube 1 APPLIC TOPICAL (22:24)
[2024-07-19] MEDS: Mirtazapine 15 MG Tablet 7.5 MG PO (22:26)
[2024-07-19] MEDS: 0.9% Normal Saline (100mL Bag) 100 ML 15 ML IV (22:45)
--- NOTE | 2024-07-20 02:30 | NURSING ---
Patient bladder scanned for 302cc, patient refused straight cath, states I will in the morning. encouragement ineffective, education provided on adverse effects of not empting bladder, ineffective.
[2024-07-20] MEDS: Meropenem 1 GM in 0.9% Normal Saline (100mL MB+) 100 ML IV ×3 (05:12→22:00)
[2024-07-20] MEDS: Ensure Plus High Protein 120 ML LIQUID PO ×3 (06:15→16:56)
[2024-07-20] MEDS: Enoxaparin 40 MG/0.4 ML Syringe SC (06:15)
--- NOTE | 2024-07-20 06:34 | NURSING ---
Patient bladder scanned for 414cc, straight cathed for 125cc, patient stated that is all he could get out with laying down, he said he will get more out later when he gets up.
[2024-07-20 06:40] LABS: Anion Gap 7 (5-15); BUN 28 mg/dL (7-18); BUN/Creat Ratio 44.5 RATIO (10-20); Calcium,Total 8.5 mg/dL (8.5-10.1); Chloride 110 mmol/L (98-107); Creatinine, Serum 0.63 mg/dL (0.70-1.30); EST Glomerular Filtration Rate 158 mL/min (>60); Est Glom Filt Rate - Afr Amer 192 mL/min (>60); Glucose 78 mg/dL (74-106); Potassium 3.5 mmol/L (3.5-5.1); Sodium Level 141 mmol/L (136-145)
--- NOTE | 2024-07-20 06:54 | PN_ITS ---
Subjective Subjective Doing well overall. Endorses good dressing changes with the Aquacel Ag on the flap edges. Has been pressure offloading as best as he can Objective Data Objective Data Vital Signs: Vital Signs Temp Pulse Resp BP Pulse Ox O2 Del Method 98.5 F 66 14 103/67 98 Room Air 07/19/24 08:14 07/19/24 13:30 07/19/24 13:30 07/19/24 08:14 07/19/24 13:30 07/19/24 13:30 Oxygen Delivery Method Room Air Weight: 124 lb 15.998 oz Body Mass Index (BMI) 14.8 Intake & Output: Intake and Output for Last 24 Hours 07/18/24 07/19/24 07/20/24 23:59 23:59 23:59 Intake Total 658.75 / 658.75 1165.50 / 1165.50 160.25 / 160.25 Output Total 1470 / 2270 2095 / 2095 150 / 150 Balance -811.25 / -1611.25 -929.50 / -929.50 10.25 / 10.25 Lab / Micro Data 07/19/24 05:06 07/20/24 05:15 Labs: Laboratory Results - last 24 hr 07/19/24 05:06: WBC 8.7, RBC 4.85, Hgb 11.0 L, Hct 37.6 L, MCV 77.5 L, MCH 22.7 L, MCHC 29.3 L, RDW Std Deviation 69.8 H, RDW Coeff of Cathy 26.4 H, Plt Count 501 H, MPV 9.5, Immature Gran % (Auto) 1.400 H, Neut % (Auto) 57.2, Lymph % (Auto) 26.8, [place] % (Auto) 8.1, Eos % (Auto) 5.5 H, Baso % (Auto) 1.0, Absolute Neuts (auto) 5.0, Absolute Lymphs (auto) 2.33, Nucleated RBC % 0, Anisocytosis 1+, ESR 22 H 07/20/24 05:15: Sodium 141, Potassium 3.5, Chloride 110 H, Carbon Dioxide 25.0, Anion Gap 7, BUN 28 H, Creatinine 0.63 L, Estim Creat Clear Calc 137.50, Est GFR (MDRD) Af Amer 192, Est GFR (MDRD) Non-Af 158, BUN/Creatinine Ratio 44.5 H, Glucose 78, Calcium 8.5 Physical Exam Narrative Flap healthy, normal color with capillary refill <2 seconds. Two small areas of dehiscence on the medial and lateral aspects of the incisions. These areas are stable RANJAN drain draining serosanguineous drainage, no purulence. Strips well. Remaining drain put out 20 over the past 24 hours. Const alert General Appearance: cooperative Orientation / Consciousness: awake HEENT normocephalic Eyes General Eye: normal appearance of both eyes Neck full ROM Resp normal respiratory effort and normal air movement Effort and Inspection: able to speak in complete sentences Cardio regular rate GI GI Narrative: colostomy with soft, brown stool in bag. Abdomen is soft and nontender Anus is healthy appearing and no signs of drainage or fistula. No bleeding. Extremity normal to inspection and normal capillary refill Neuro oriented x3 Assessment & Plan Assessment/Plan (1) Sacral osteomyelitis: (2) Decubitus ulcer of sacral area: QUALIFIERS: Pressure injury stage: stage 4 Qualified Code(s): L 89.154 - Pressure ulcer of sacral region, stage 4 PLAN: Postop week 2 from reconstruction 2 small open areas, but overall flap healing well. He continues on IV antibiotics per infectious disease PLAN: Plan Continue pressure offloading and drain liang Appreciate primary team (transitional care unit) Continue to work on physical therapy while taking care to pressure offload. Neuro: Keppra for seizures. Hem/ID: Continue antibiotics per ID and continue SCDs and Lovenox for DVT pxx. Renal: Continue BMPs every other day to monitor kidneys while on broad-spectrum antibiotics PSU to follow Charges/Coding Procedures Integumentary 111xxx-113xx: [id number] Global Visit
[2024-07-20] MEDS: 0.9% Saline Lock 10 ML Syringe IV ×3 (09:50→22:12)
[2024-07-20] MEDS: Citalopram 10 MG Tablet PO (09:53)
[2024-07-20] MEDS: Potassium Chloride Oral Tablet 20 MEQ PO ×2 (09:53→16:52)
[2024-07-20] MEDS: levETIRAcetam 500 MG Tablet PO ×2 (09:54→21:59)
[2024-07-20] MEDS: Clotrimazole/Betamethasone 1 Tube 1 APPLIC TOPICAL (09:55)
[2024-07-20] MEDS: Minocycline 100 MG Capsule PO ×2 (09:55→22:01)
[2024-07-20] MEDS: Lansoprazole 15 MG Capsule.DR 30 MG PO ×2 (09:55→21:59)
[2024-07-20 10:06] VITALS: BP 100/65; PULSE 94; RESP 16; O2SAT 99
[2024-07-20] MEDS: Ferrous Sulfate 325 MG Tablet PO (11:18)
[2024-07-20 16:00] VITALS: TEMP 36.9
[2024-07-20] MEDS: 0.9% Normal Saline (100mL Bag) 100 ML 15 ML IV (16:43)
--- NOTE | 2024-07-20 17:28 | NURSING ---
AND EARLINE,RN/ WOUND NURSE INTO SEE PT TODAY. RANJAN DRAIN STRIPPED AND EMPTIED 30 CC OF ORANGE COLOR FLUID WITH 1 LARGE CLOT. BLADDER SCANNED PER ORDER,PT STRAIGHT CATHED SELF. TURNED EVERY 2 HOURS. PT TOLERATED ALL WELL. PT SISTER IN TO SEE PT.
[2024-07-20] MEDS: Mirtazapine 15 MG Tablet 7.5 MG PO (22:01)
--- NOTE | 2024-07-21 01:43 | NURSING ---
Patient refused bladder scan when offered, stated No.
[2024-07-21] MEDS: 0.9% Saline Lock 10 ML Syringe IV ×3 (05:10→18:06)
[2024-07-21] MEDS: Meropenem 1 GM in 0.9% Normal Saline (100mL MB+) 100 ML IV ×3 (05:15→22:14)
[2024-07-21] MEDS: Ensure Plus High Protein 120 ML LIQUID PO ×3 (06:24→17:22)
[2024-07-21] MEDS: Enoxaparin 40 MG/0.4 ML Syringe SC (06:24)
[2024-07-21 06:47] LABS: Anion Gap 6 (5-15); BUN 38 mg/dL (7-18); BUN/Creat Ratio 62.1 RATIO (10-20); Calcium,Total 8.7 mg/dL (8.5-10.1); Chloride 110 mmol/L (98-107); Creatinine, Serum 0.61 mg/dL (0.70-1.30); EST Glomerular Filtration Rate 164 mL/min (>60); Est Glom Filt Rate - Afr Amer 198 mL/min (>60); Estimated Creatinine Clearance 142.01 ml/min; Glucose 77 mg/dL (74-106); Potassium 3.6 mmol/L (3.5-5.1); Sodium Level 142 mmol/L (136-145)
[2024-07-21 10:00] VITALS: BP 92/52; PULSE 79; RESP 18; O2SAT 97
[2024-07-21] MEDS: Citalopram 10 MG Tablet PO (10:32)
[2024-07-21] MEDS: Minocycline 100 MG Capsule PO ×2 (10:32→22:13)
[2024-07-21] MEDS: levETIRAcetam 500 MG Tablet PO ×2 (10:32→22:13)
[2024-07-21] MEDS: Potassium Chloride Oral Tablet 20 MEQ PO ×2 (10:32→17:22)
[2024-07-21] MEDS: Lansoprazole 15 MG Capsule.DR 30 MG PO ×2 (10:32→22:13)
[2024-07-21 10:40] VITALS: PULSE 79; RESP 18; O2SAT 97
[2024-07-21] MEDS: Ferrous Sulfate 325 MG Tablet PO (11:10)
[2024-07-21 13:46] VITALS: TEMP 36.6
--- NOTE | 2024-07-21 16:42 | NURSING ---
Addendum entered by Blayne Traore 07/21/24 17:11: RAMILA PATTEN/WOUND NURSE GOT BACK WITH THIS NURSE AND STATED SHE AND ARE AWARE OF AREA TO RT BUTTOCK. Original Note: PT STRAIGHT CATH SELF AND VOIDING WELL ,BLADDER SCAN PER ORDER. COLOSTOMY EMPTIED,LT DRAIN TUBING STRIPPED AND BULB EMPTIED FOR 30 CC ORANGE IN COLOR AND 1 LARGE BLOOD CLOT. DRESSING CHANGED PER ORDER, AREA TO RT BUTTOCK WHERE STITCHES ARE LOOKS TO HAVE DEHISCED. LEFT MESSAGE FOR RAMILA PATTEN/WOUND NURSE. PT LET THIS NURSE GIVE A SHOWER CAP/COMB HAIR AND WASH BOTTOM/GROIN UP. PT TOLERATED WELL. RN AWARE.
--- NOTE | 2024-07-21 17:03 | PCM.PN.SRG ---
Subjective Subjective Patient is doing well. He admits to sometimes not sitting/laying way over on his side as much as he should. He denies any other complaints at this time. Objective Data Objective Data Vital Signs: Vital Signs Temp Pulse Resp BP Pulse Ox O2 Del Method 97.9 F 79 18 92/52 L 97 Room Air 07/21/24 13:46 07/21/24 10:40 07/21/24 10:40 07/21/24 10:00 07/21/24 10:40 07/21/24 10:40 Oxygen Delivery Method Room Air Weight: 124 lb 15.998 oz Body Mass Index (BMI) 14.8 Intake & Output: Intake and Output for Last 24 Hours 07/19/24 07/20/24 07/21/24 23:59 23:59 23:59 Intake Total 1165.50 / 1165.50 1440.25 / 1440.25 739.75 / 739.75 Output Total 2095 / 2095 1888 / 1888 2080 / 2080 Balance -929.50 / -929.50 -447.75 / -447.75 -1340.25 / -1340.25 Lab / Micro Data Attestation: I reviewed the patient's lab results. 07/19/24 05:06 07/21/24 05:16 Labs: Laboratory Results - last 24 hr 07/21/24 05:16: Sodium 142, Potassium 3.6, Chloride 110 H, Carbon Dioxide 26.0, Anion Gap 6, BUN 38 H, Creatinine 0.61 L, Estim Creat Clear Calc 142.01, Est GFR (MDRD) Af Amer 198, Est GFR (MDRD) Non-Af 164, BUN/Creatinine Ratio 62.1 H, Glucose 77, Calcium 8.7 Micro: Microbiology 07/18/24 10:55 Urine, Catheterized Urine Culture - Final Culture exhibits no growth. Physical Exam Narrative Sacral flap with one small area of moisture on the right side, Continue to place Aquacel-Ag over the separation. No drainage currently from this area. The previous area has dried up and is healing nicely. He continues to have serous drainage from his one RANJAN. Capillary refill <2 seconds. Flap is healing nicely and is nice pink color. Const alert General Appearance: cooperative HEENT normocephalic Eyes General Eye: normal appearance of both eyes Resp normal respiratory effort Effort and Inspection: able to speak in complete sentences Extremity normal capillary refill Assessment & Plan Assessment/Plan (1) Sacral osteomyelitis: (2) Decubitus ulcer of sacral area: PLAN: Plan Continue pressure offloading and drain care Continue Aquacel-Ag to the 2 small area of moisture on the most distal portion of the incision to help prevent maceration. Change daily and cover entire incision with ABD. Neuro: Keppra for seizures. Hem/ID: Continue antibiotics per ID and continue SCDs and Lovenox for DVT pxx. Renal: Continue BMPs every other day to monitor kidneys while on broad-spectrum antibiotics GI: Scheduled for upper GI today for further evaluation of his his iron deficiency anemia. PSU to follow
[2024-07-21 17:30] VITALS: BP 109/71; PULSE 82
[2024-07-21] MEDS: Mirtazapine 15 MG Tablet 7.5 MG PO (22:13)
--- NOTE | 2024-07-22 02:22 | NURSING ---
Addendum entered by Adilene Paniagua 07/22/24 04:45: Pt agreed to self straight cath at this time, 450 drained from bladder. Bladder scanned for 507, when pt informed and asked if he would like to attempt to drain more from bladder he stated No that will come out later. Pts gown noted to be damp with urine and changed at this time. Pt compliant with turning to opposite side. Original Note: This nurse went to pts room to disconnect pt's IV and assist with repositioning and voiding needs. Pt was compliant with turning but refused to be bladder scanned or straight cath at this time. Pt educated on Q4H toileting scheduled but pt continued to refuse. No further needs voiced at this time.
[2024-07-22] MEDS: Meropenem 1 GM in 0.9% Normal Saline (100mL MB+) 100 ML IV ×3 (06:36→22:14)
[2024-07-22] MEDS: Enoxaparin 40 MG/0.4 ML Syringe SC (06:36)
[2024-07-22 06:52] LABS: Anion Gap 6 (5-15); BUN 31 mg/dL (7-18); BUN/Creat Ratio 48.5 RATIO (10-20); Calcium,Total 8.5 mg/dL (8.5-10.1); Chloride 111 mmol/L (98-107); Creatinine, Serum 0.64 mg/dL (0.70-1.30); EST Glomerular Filtration Rate 156 mL/min (>60); Est Glom Filt Rate - Afr Amer 188 mL/min (>60); Estimated Creatinine Clearance 135.35 ml/min; Glucose 77 mg/dL (74-106); Potassium 3.5 mmol/L (3.5-5.1); Sodium Level 144 mmol/L (136-145)
--- NOTE | 2024-07-22 08:55 | MDS.RN ---
Information for the MDS was obtained from review of the clinical record, interview of resident, staff, and direct observation of resident?s care.
[2024-07-22 10:06] VITALS: BP 99/60; PULSE 74; RESP 15; TEMP 36.7; O2SAT 100
[2024-07-22] MEDS: Citalopram 10 MG Tablet PO (10:09)
[2024-07-22] MEDS: Potassium Chloride Oral Tablet 20 MEQ PO ×2 (10:09→17:04)
[2024-07-22] MEDS: Lansoprazole 15 MG Capsule.DR 30 MG PO ×2 (10:09→21:50)
[2024-07-22] MEDS: levETIRAcetam 500 MG Tablet PO ×2 (10:09→21:50)
[2024-07-22] MEDS: Minocycline 100 MG Capsule PO ×2 (10:10→21:51)
--- NOTE | 2024-07-22 11:34 | NURSING ---
dressing changed to sacral area d/t liquid stool noted when turning pt, pt was unaware of incontinence. RANJAN drain emptied 15cc. repositioned on RT side, pillow behind back. SCDs intact. call light in reach. pleasant and cooperative with care. pt asked this nurse multiple times if wound on sacral area have any new areas. explained no new areas, sutures intact. no s/s infections or new redness. continues to drain at times.
[2024-07-22] MEDS: Ferrous Sulfate 325 MG Tablet PO (12:44)
[2024-07-22] MEDS: Ensure Plus High Protein 120 ML LIQUID PO ×3 (12:46→21:50)
[2024-07-22] MEDS: 0.9% Saline Lock 10 ML Syringe IV ×2 (14:38→21:52)
--- NOTE | 2024-07-22 15:58 | WOUNDNOTE ---
wound photo: sacrum
--- NOTE | 2024-07-22 15:58 | WOUNDNOTE ---
wound photo: sacrum
--- NOTE | 2024-07-22 16:01 | NURSING ---
pt st cath self w/minimal assist for 800cc clear yellow urine, bladder scanned for 40cc.
[2024-07-22 20:00] VITALS: PULSE 80; O2SAT 98
[2024-07-22] MEDS: Mirtazapine 15 MG Tablet 7.5 MG PO (21:52)
--- NOTE | 2024-07-22 22:00 | NURSING ---
Patient bladder scanned for 748ml, patient refused to straight cath.
[2024-07-23] MEDS: 0.9% Normal Saline (100mL Bag) 100 ML 15 ML IV (01:25)
[2024-07-23] MEDS: Meropenem 1 GM in 0.9% Normal Saline (100mL MB+) 100 ML IV ×3 (05:06→21:48)
[2024-07-23] MEDS: Enoxaparin 40 MG/0.4 ML Syringe SC (05:58)
[2024-07-23] MEDS: Ensure Plus High Protein 120 ML LIQUID PO ×3 (05:58→16:44)
--- NOTE | 2024-07-23 06:13 | NURSING ---
Patient bladder scanned for 485ml, refused to straight cath, states I don't feel anything in there, I will do it later.
[2024-07-23 07:40] VITALS: BP 110/72; PULSE 67; RESP 14; TEMP 36.8; O2SAT 99
--- NOTE | 2024-07-23 08:45 | CASEMGMT ---
Social Work SW sent IV ATB referral to [facility] to begin coordinating needs at DC 07/30. SW left VM with mother to follow up - need a [facility] agency, confirm DC date, and ensure training has been scheduled. JESSEE GutierrezW
[2024-07-23] MEDS: Potassium Chloride Oral Tablet 20 MEQ PO ×2 (08:57→16:43)
[2024-07-23] MEDS: Citalopram 10 MG Tablet PO (09:00)
[2024-07-23] MEDS: levETIRAcetam 500 MG Tablet PO ×2 (09:01→21:47)
[2024-07-23] MEDS: Lansoprazole 15 MG Capsule.DR 30 MG PO ×2 (09:02→21:47)
[2024-07-23] MEDS: Minocycline 100 MG Capsule PO ×2 (09:03→21:47)
--- NOTE | 2024-07-23 09:52 | NURSING ---
pt st cathed self with assist of students, pt 125cc clear straw color urine, then this nurse bladder scanned for >900cc. repositioned pt up in bed, HOB elevated, pt re cathed self and able to get 900cc. pt positioned on lt side
[2024-07-23 10:00] VITALS: PULSE 67; O2SAT 99
[2024-07-23 10:08] LABS: Albumin, Serum 2.4 g/dL (3.2-5.0)
[2024-07-23 10:41] VITALS: PULSE 88; RESP 15; O2SAT 99
--- NOTE | 2024-07-23 10:43 | PN.SURG_ITS ---
Subjective Subjective Doing well pressure offloading. Reports eating some breakfast, but minimal protein (Congolese toast only). Continued to reinforce the need for high protein diet while on rounds today. Objective Data Objective Data Vital Signs: Vital Signs Temp Pulse Resp BP Pulse Ox O2 Del Method 98.3 F 67 14 110/72 99 Room Air 07/23/24 07:40 07/23/24 10:00 07/23/24 07:40 07/23/24 07:40 07/23/24 10:00 07/23/24 10:00 Oxygen Delivery Method Room Air Weight: 124 lb 15.998 oz Body Mass Index (BMI) 14.8 Intake & Output: Intake and Output for Last 24 Hours 07/21/24 07/22/24 07/23/24 23:59 23:59 23:59 Intake Total 1001.50 / 1001.50 960 / 960 788.75 / 788.75 Output Total 2080 / 2080 2475 / 2475 2550 / 2550 Balance -1078.50 / -1078.50 -1515 / -1515 -1761.25 / -1761.25 Lab / Micro Data 07/19/24 05:06 07/22/24 05:17 Labs: Laboratory Results - last 24 hr 07/23/24 09:47: Albumin 2.4 L Micro: Microbiology 07/18/24 10:55 Urine, Catheterized Urine Culture - Final Culture exhibits no growth. Physical Exam Narrative Sacral flap with one area of opening near the donor site. No drainage currently from this area. The previous area has dried up and is healing nicely near the anus. He continues to have serous drainage from his one RANJAN (20 cc overnight) Capillary refill <2 seconds. Flap is healing nicely and is nice pink color. Const alert General Appearance: cooperative HEENT normocephalic Eyes General Eye: normal appearance of both eyes Resp normal respiratory effort Effort and Inspection: able to speak in complete sentences Extremity normal capillary refill Assessment & Plan Assessment/Plan (1) Sacral osteomyelitis: (2) Decubitus ulcer of sacral area: QUALIFIERS: Pressure injury stage: stage 4 Qualified Code(s): L 89.154 - Pressure ulcer of sacral region, stage 4 PLAN: Plan Continue pressure offloading and drain care Change to BID wet to dry dressings with Dakins to the open wound (1x 2 cm) Neuro: Keppra for seizures. Hem/ID: Continue antibiotics per ID and continue SCDs and Lovenox for DVT pxx. Renal: Continue BMPs every other day to monitor kidneys while on broad-spectrum antibiotics GI: Scheduled for upper GI today for further evaluation of his his iron deficiency anemia. PSU to follow Charges/Coding Procedures Integumentary 111xxx-113xx: 96326 Global Visit
--- NOTE | 2024-07-23 11:27 | NURSING ---
dr Light consulted for ATB managment and needing IV ATB prescription DC home next week
--- NOTE | 2024-07-23 12:43 | PN.ID_ITS ---
Physical Exam Narrative Feeling ok, wound improving, no fever, no n/v. Const alert and no apparent distress General Appearance: cooperative Resp normal air movement and clear to auscultation bilaterally Cardio regular rate and regular rhythm GI soft to palpation, non-tender and non-distended Skin Skin Narrative: reviewed recent wound photos. Picc in place. ID ID: Route of nutrition/ use of supplements: [] Nutritional Intake: [] IV Site: [] Calderon Catheter: [] Assessment & Plan Assessment/Plan (1) Sacral osteomyelitis: PLAN: Taken to OR 06/30/[address] Rodriguez, surg cx with CoNS x2, AcB, e faecalis, and corynebacter so far. Has remote h/o MDR AcB and pseudomonas. Covering with vanc, gent, flagyl for now. Plan is for 6 weeks iv abx at discharge, wrote for IV tip and po minocycline, stop date 08/11/24 with weekly labs and ID followup in 2 weeks. Wrote rx, d/w case finishing machine adjuster. Will follow, thank you
[2024-07-23] MEDS: Ferrous Sulfate 325 MG Tablet PO (12:51)
[2024-07-23] MEDS: 0.9% Saline Lock 10 ML Syringe IV ×2 (12:52→21:48)
--- NOTE | 2024-07-23 16:59 | NURSING ---
pt st cathed self for 950cc clear yellow urine with minimal assist. pt tolerated well. bladder scan for 24cc after. pt repositioned on lt side. call light in reach.
[2024-07-23] MEDS: DAKIN'S SOL HALF STRENGTH (=0.25%) TOPICAL (21:45)
[2024-07-23] MEDS: Mirtazapine 15 MG Tablet 7.5 MG PO (21:46)
[2024-07-24] MEDS: 0.9% Normal Saline (100mL Bag) 100 ML 15 ML IV ×2 (01:10→22:38)
[2024-07-24] MEDS: Enoxaparin 40 MG/0.4 ML Syringe SC (06:19)
[2024-07-24] MEDS: Meropenem 1 GM in 0.9% Normal Saline (100mL MB+) 100 ML IV ×3 (06:20→22:49)
[2024-07-24] MEDS: 0.9% Saline Lock 10 ML Syringe IV ×3 (06:20→22:25)
--- NOTE | 2024-07-24 07:23 | PCM.PN.SRG ---
Subjective Subjective Doing well. Reports good dressing changes and good pressure offloading. Trying to eat more protein. Objective Data Objective Data Vital Signs: Vital Signs Temp Pulse Resp BP Pulse Ox O2 Del Method 98.3 F 88 15 110/72 99 Room Air 07/23/24 07:40 07/23/24 10:41 07/23/24 10:41 07/23/24 07:40 07/23/24 10:41 07/23/24 10:41 Oxygen Delivery Method Room Air Weight: 124 lb 15.998 oz Body Mass Index (BMI) 14.8 Intake & Output: Intake and Output for Last 24 Hours 07/22/24 07/23/24 07/24/24 23:59 23:59 23:59 Intake Total 960 / 960 1318.75 / 1318.75 120 / 120 Output Total 2475 / 2475 3310 / 3310 100 / 100 Balance -1515 / -151 -1990. / - Lab / Micro Data 07/19/24 05:06 07/22/24 05:17 Labs: Laboratory Results - last 24 hr 07/23/24 09:47: Albumin 2.4 L Micro: Microbiology 07/18/24 10:55 Urine, Catheterized Urine Culture - Final Culture exhibits no growth. Physical Exam Narrative Sacral flap with one area of opening near the donor site. No drainage currently from this area. I changed dressing this morning. The previous open area has dried up and is healing nicely near the anus. He continues to have serous drainage from his remaining RANJAN Capillary refill <2 seconds. Flap is healing nicely and is nice pink color. Const alert General Appearance: cooperative HEENT normocephalic Eyes General Eye: normal appearance of both eyes Resp normal respiratory effort Effort and Inspection: able to speak in complete sentences Extremity normal capillary refill Assessment & Plan Assessment/Plan (1) Sacral osteomyelitis: PLAN: Appreciate ID recommendations: Plan is for 6 weeks iv abx at discharge, they wrote for IV tip and po minocycline, stop date 08/11/24 with weekly labs and ID followup in 2 weeks. They wrote rx, d/w rifle case repairer. Continue pressure offloading and Dakins WTD dressings BID to the open area near donor site. Anticipate DC on 30 Jul 2024 per case management will f/u at wound care center for small open area weekly after DC Continue RANJAN drain care and frequent turns/offloading with sand bed Charges/Coding Procedures Integumentary 111xxx-113xx: [id number] Global Visit
[2024-07-24] MEDS: Citalopram 10 MG Tablet PO (08:56)
[2024-07-24] MEDS: levETIRAcetam 500 MG Tablet PO ×2 (08:56→22:22)
[2024-07-24] MEDS: Potassium Chloride Oral Tablet 20 MEQ PO ×2 (08:56→17:40)
[2024-07-24] MEDS: Lansoprazole 15 MG Capsule.DR 30 MG PO ×2 (08:56→22:22)
[2024-07-24] MEDS: Minocycline 100 MG Capsule PO ×2 (08:56→22:23)
[2024-07-24 09:08] LABS: Prealbumin 22 mg/dL (14-35)
[2024-07-24] MEDS: Ferrous Sulfate 325 MG Tablet PO (12:07)
[2024-07-24] MEDS: Ensure Plus High Protein 120 ML LIQUID PO ×3 (12:07→22:21)
[2024-07-24 12:20] VITALS: BP 92/64; PULSE 79; RESP 14; TEMP 36.9; O2SAT 96
[2024-07-24 20:00] VITALS: PULSE 76; O2SAT 95
[2024-07-24] MEDS: DAKIN'S SOL HALF STRENGTH (=0.25%) TOPICAL (22:21)
[2024-07-24] MEDS: Mirtazapine 15 MG Tablet 7.5 MG PO (22:24)
--- NOTE | 2024-07-24 22:53 | NURSING ---
Patient bladder scanned for 484ml, patient refused to straight cath, states I don't feel anything in there, I will take care of it later. gentle encouragement ineffective.
--- NOTE | 2024-07-25 03:03 | NURSING ---
Patient straight cathed for 200ml, bladder scanned for 613ml, patient states that is all I can get out right now, I'll get it later.
[2024-07-25] MEDS: Meropenem 1 GM in 0.9% Normal Saline (100mL MB+) 100 ML IV ×3 (05:35→21:26)
[2024-07-25] MEDS: Enoxaparin 40 MG/0.4 ML Syringe SC (05:55)
[2024-07-25] MEDS: Ensure Plus High Protein 120 ML LIQUID PO ×4 (05:55→21:26)
--- NOTE | 2024-07-25 06:13 | NURSING ---
Patient refused bladder scan, states I don't feel anything in there. gentle encouragement ineffective.
[2024-07-25 06:35] VITALS: PULSE 70; O2SAT 98
--- NOTE | 2024-07-25 09:30 | NURSING ---
WENT IN ROOM TO ADMINISTER MEDS AND PT STATED I AM WET. PT LEAKED URINE VIA SUPRAPUBIC CATH SITE, INCONT CARE PROVIDED, CLEAN LINENS PLACED ON AIR SPECIALTY MATTRESS. EDUCATED PT ON NEEDING TO ST CATH SELF WHEN STAFF CHECK ON HIM AT 0400 OR 0600 TO ASSIST WITH DRAINING HIS BLADDER SOONER THAN LATER. PT VERBALIZED UNDERSTANDING. WILL MAKE NEXT SHIFT AWARE. PT ASSISTED WITH CATHING AND STILL HAD >1000 DRAINED CLEAR YELLOW. BURPED COLOSTOMY BAG. PT ON RT SIDE. SCD'S IN PLACE. CALL LIGHT IN REACH.
[2024-07-25] MEDS: 0.9% Saline Lock 10 ML Syringe IV ×3 (09:40→21:26)
[2024-07-25 09:42] VITALS: BP 92/57; PULSE 89; RESP 16; TEMP 37.1; O2SAT 99
[2024-07-25] MEDS: levETIRAcetam 500 MG Tablet PO ×2 (09:44→21:26)
[2024-07-25] MEDS: Lansoprazole 15 MG Capsule.DR 30 MG PO ×2 (09:44→21:26)
[2024-07-25] MEDS: Citalopram 10 MG Tablet PO (09:44)
[2024-07-25] MEDS: Potassium Chloride Oral Tablet 20 MEQ PO ×2 (09:44→17:16)
[2024-07-25] MEDS: Minocycline 100 MG Capsule PO ×2 (09:45→21:26)
[2024-07-25] MEDS: DAKIN'S SOL HALF STRENGTH (=0.25%) TOPICAL ×2 (09:45→21:27)
--- NOTE | 2024-07-25 10:43 | NURSING ---
DR AMBRIZ HERE AND REMOVED SUTURES, PT TOLERATED WELL. DENIED PAIN/DISCOMFORT. DRESSING CHANGED PER WOUND ORDERS. MINIMAL TAPE USED, DRAIN INTACT, EMPTIED 10CC. DID NOT REMOVE DRAIN D/T PT STILL HAVING TO MUCH OF NOW TO REMOVE. PT REPOSITIONED ON RT SIDE, CALL LIGHT IN REACH.
--- NOTE | 2024-07-25 10:45 | PN.SURG_ITS ---
Subjective Subjective Doing well overall. Sutures removed at bedside today and patient tolerated well. 40 cc from drain in past 24 hours. Objective Data Objective Data Vital Signs: Vital Signs Temp Pulse Resp BP Pulse Ox O2 Del Method 98.8 F 89 16 92/57 L 99 Room Air 07/25/24 09:42 07/25/24 09:42 07/25/24 09:42 07/25/24 09:42 07/25/24 09:42 07/25/24 09:42 Oxygen Delivery Method Room Air Weight: 124 lb 15.998 oz Body Mass Index (BMI) 14.8 Intake & Output: Intake and Output for Last 24 Hours 07/23/24 07/24/24 07/25/24 23:59 23:59 23:59 Intake Total 1318.75 / 1318.75 1160.25 / 1160.25 530.25 / 530.25 Output Total 3310 / 3310 2285 / 2285 1330 / 1330 Balance -1991.25 / -1991.25 -1124.75 / -1124.75 -799.75 / -799.75 Lab / Micro Data 07/19/24 05:06 07/22/24 05:17 Micro: Microbiology 07/18/24 10:55 Urine, Catheterized Urine Culture - Final Culture exhibits no growth. Physical Exam Narrative Sacral flap with one area of opening near the donor site. No drainage currently from this area. granulating well. Does not tunnel. He continues to have serous drainage from his remaining RANJAN Capillary refill <2 seconds. Flap is healing nicely and is nice pink color. NO SIGNS OF INFECTION. Const alert General Appearance: cooperative HEENT normocephalic Eyes General Eye: normal appearance of both eyes Resp normal respiratory effort Effort and Inspection: able to speak in complete sentences Extremity normal capillary refill Assessment & Plan Assessment/Plan (1) Sacral osteomyelitis: PLAN: Appreciate ID recommendations: Plan is for 6 weeks iv abx at discharge, they wrote for IV tip and po minocycline, stop date 08/11/24 with weekly labs and ID followup in 2 weeks. They wrote rx, d/w disability case manager. Continue pressure offloading and Dakins WTD dressings BID to the open area near donor site. Anticipate DC on 30 Jul 2024 per case management will f/u at wound care center for small open area weekly after DC Continue RANJAN drain care and frequent turns/offloading with sand bed Charges/Coding Procedures Integumentary 111xxx-113xx: [id number] Global Visit
[2024-07-25] MEDS: Ferrous Sulfate 325 MG Tablet PO (12:10)
[2024-07-25] MEDS: 0.9% Normal Saline (100mL Bag) 100 ML 15 ML IV (12:53)
[2024-07-25] MEDS: Mirtazapine 15 MG Tablet 7.5 MG PO (21:26)
[2024-07-26] MEDS: 0.9% Saline Lock 10 ML Syringe IV ×3 (02:25→22:05)
[2024-07-26] MEDS: Enoxaparin 40 MG/0.4 ML Syringe SC (05:29)
[2024-07-26] MEDS: 0.9% Normal Saline (100mL Bag) 100 ML 15 ML IV ×2 (05:31→13:23)
[2024-07-26] MEDS: Meropenem 1 GM in 0.9% Normal Saline (100mL MB+) 100 ML IV ×3 (05:41→22:06)
[2024-07-26] MEDS: Ensure Plus High Protein 120 ML LIQUID PO ×3 (05:44→17:45)
[2024-07-26 06:05] LABS: Absolute Lymphocyte Count 2.03 X10^3/uL (0.83-4.51); Absolute Neutrophil Count 3.2 X10^3/uL (2.0-7.7); Basophil# 0.06 X10^3/uL; Basophil% 0.9 % (0-1); Eosinophil# 0.47 X10^3/uL; Eosinophils% 7.3 % (0-5); Hematocrit 35.3 % (40-54); Hemoglobin 10.8 g/dL (13.0-16.5); Lymphocyte # 2.03 X10^3/ul (0.83-4.51); Lymphocyte % 31.6 % (19-41); Mean Corp Hgb Conc 30.6 g/dL (32-36); Mean Corpuscular Hgb 24.1 pg (27.0-32.0); Mean Corpuscular Volume 78.8 fL (80-94); Mean Platelet Vol. 10.2 fl (6.2-12.0); Monocyte# 0.57 X10^3/uL; Monocyte% 8.9 % (0-10); NRBC Flagged by Analyzer 0 % (0-5); Neutrophil # 3.22 X10^3/uL (2.7-7.7); Neutrophil % 50.2 % (47-70); POSITIVE MORPHOLOGY YES; Platelet Count 288 K/mm3 (150-450); RBC Distribution Width CV 25.7 % (11.6-14.6); RBC Distribution Width SD 70.4 fl (35.1-43.9); Red Blood Count 4.48 M/mm3 (4.6-6.2); White Blood Count 6.4 K/mm3 (4.4-11.0)
[2024-07-26 06:11] LABS: Differential Indicated SCAN CRITERIA MET
[2024-07-26 06:12] LABS: Erythrocyte Sedimentation Rate 17 mm/hr (0-20)
[2024-07-26 06:22] LABS: AST(SGOT) 24 U/L (15-37); Alanine Aminotransfer ALT/SGPT 32 U/L (16-61); Albumin, Serum 2.5 g/dL (3.2-5.0); Alkaline Phosphatase 92 U/L (45-117); Anion Gap 7 (5-15); BUN 43 mg/dL (7-18); BUN/Creat Ratio 77.1 RATIO (10-20); Bilirubin, Direct 0.13 mg/dL (0.00-0.30); Calcium,Total 8.7 mg/dL (8.5-10.1); Chloride 108 mmol/L (98-107); Creatinine, Serum 0.56 mg/dL (0.70-1.30); EST Glomerular Filtration Rate 182 mL/min (>60); Est Glom Filt Rate - Afr Amer 220 mL/min (>60); Estimated Creatinine Clearance 154.68 ml/min; Globulin 3.3 g/dL (2.2-4.2); Glucose 91 mg/dL (74-106); Potassium 3.9 mmol/L (3.5-5.1); Protein, Total 5.8 g/dL (6.4-8.2); Sodium Level 144 mmol/L (136-145)
[2024-07-26 07:23] LABS: Anisocytosis 1+
[2024-07-26 08:06] VITALS: BP 108/74; PULSE 60; RESP 16; TEMP 36.8; O2SAT 99
[2024-07-26] MEDS: Potassium Chloride Oral Tablet 20 MEQ PO ×2 (08:19→17:45)
[2024-07-26] MEDS: Citalopram 10 MG Tablet PO (08:21)
[2024-07-26] MEDS: Lansoprazole 15 MG Capsule.DR 30 MG PO ×2 (08:24→22:07)
[2024-07-26] MEDS: levETIRAcetam 500 MG Tablet PO ×2 (08:24→22:06)
[2024-07-26] MEDS: Minocycline 100 MG Capsule PO ×2 (08:26→22:07)
[2024-07-26 10:00] VITALS: PULSE 60; RESP 16; O2SAT 99
[2024-07-26] MEDS: DAKIN'S SOL HALF STRENGTH (=0.25%) TOPICAL ×2 (11:30→22:06)
[2024-07-26] MEDS: Ferrous Sulfate 325 MG Tablet PO (11:47)
--- NOTE | 2024-07-26 11:52 | WOUNDNOTE ---
wound photo: sacrum
--- NOTE | 2024-07-26 12:05 | CASEMGMT ---
Social Work No return call from mother. SW spoke with pt and provided contact information to pt. Requested mother contact this worker to coordinate DC plans. Pt agreed. [facility] signed for DC 07/30. Sade Hernández MSW BALLAST REGULATOR OPERATOR
--- NOTE | 2024-07-26 14:11 | NURSING ---
Patient attempted to straight cath but no output was noted. This nurse irrigated straight cath and noted there was sediment clogging cath. Straight cath irrigated with 50cc sterile water. 1100ml of clear yellow urine noted. Bladder scanned completed after and noted 82ml residual.
--- NOTE | 2024-07-26 18:52 | NURSING ---
Patient attempted to straight cath and had minimal output. This nurse irrigated straight cath and noted there was sediment clogging cath again. Straight cath irrigated with 40cc sterile water. 600ml of clear yellow urine noted. Bladder scanned completed after and noted 24ml residual.
--- NOTE | 2024-07-26 19:53 | NURSING ---
Dressing changed to sacral region open area as ordered at this time, no s/sx infection, wound bed beefy red, no heat, no edema, small amount serosang draiange observed to old dressing. Patient tolerated well. T&R at this time. Denies requests. Call light in reach. Personal items within reach.
[2024-07-26] MEDS: Mirtazapine 15 MG Tablet 7.5 MG PO (22:07)
--- NOTE | 2024-07-27 00:05 | NURSING ---
A&Ox3. T&R at this time. Patient encouraged to straight cath at this time, patient refuses x3 attempts despite education, states not now,later. Bladder scan offered at this time, patient declines, states no. Denies requests. Call light in reach.
[2024-07-27] MEDS: 0.9% Saline Lock 10 ML Syringe IV ×4 (02:53→22:40)
[2024-07-27] MEDS: Meropenem 1 GM in 0.9% Normal Saline (100mL MB+) 100 ML IV ×3 (06:27→22:39)
[2024-07-27] MEDS: Enoxaparin 40 MG/0.4 ML Syringe SC (06:27)
--- NOTE | 2024-07-27 06:33 | NURSING ---
A&Ox3, self caths at home. Patient encouraged to self cath at this time, declines, not yet. Educated on importance of emptying bladder, bladder scan offered, patient declines, states no, not yet. Patient declines bladder scan and assist with straight cath x3 attempts. Patient encouraged to straight cath no later than breakfast patient agrees, states I will. Denies requests. IV ATB continues as ordered, no adverse effects observed or reproted, no rash, no SOB, no n/v/d. Call light and personal items within reach. Offered to T&R patient at this time, patient declines, stating no, not yet. RANJAN drain emptied with 25cc serosang fluid observed, clot observed.
[2024-07-27] MEDS: Potassium Chloride Oral Tablet 20 MEQ PO ×2 (09:20→17:15)
[2024-07-27] MEDS: Citalopram 10 MG Tablet PO (09:21)
[2024-07-27] MEDS: DAKIN'S SOL HALF STRENGTH (=0.25%) TOPICAL ×2 (09:21→22:39)
[2024-07-27] MEDS: levETIRAcetam 500 MG Tablet PO ×2 (09:22→22:40)
[2024-07-27] MEDS: Lansoprazole 15 MG Capsule.DR 30 MG PO ×2 (09:22→22:40)
[2024-07-27] MEDS: Minocycline 100 MG Capsule PO ×2 (09:22→22:40)
[2024-07-27 09:38] VITALS: BP 102/65; PULSE 85; RESP 16; O2SAT 100
--- NOTE | 2024-07-27 09:48 | PCM.PN.SRG ---
Subjective Subjective Doing well overall. Pressure offloading. I spoke to his mother today on the phone about the open area and the plan for WTD dressings. She's comfortable with plan. He will be on pressure offloading bed at home. Objective Data Objective Data Vital Signs: Vital Signs Temp Pulse Resp BP Pulse Ox O2 Del Method 98.2 F 85 16 102/65 100 Room Air 07/26/24 08:06 07/27/24 09:38 07/27/24 09:38 07/27/24 09:38 07/27/24 09:38 07/27/24 09:38 Oxygen Delivery Method Room Air Weight: 124 lb 15.998 oz Body Mass Index (BMI) 14.8 Intake & Output: Intake and Output for Last 24 Hours 07/25/24 07/26/24 07/27/24 23:59 23:59 23:59 Intake Total 1399.75 / 1399.75 1368.75 / 1368.75 720 / 720 Output Total 3505 / 3505 2440 / 2440 100 / 100 Balance -2105.25 / -2105.25 -1071.25 / -1071.25 620 / 620 Lab / Micro Data 07/26/24 05:07 07/26/24 05:07 Micro: Microbiology 07/18/24 10:55 Urine, Catheterized Urine Culture - Final Culture exhibits no growth. Physical Exam Narrative Sacral flap with one area of opening near the donor site. No drainage currently from this area. granulating well. Does not tunnel. He continues to have serous drainage from his remaining RANJAN Capillary refill <2 seconds. Flap is healing nicely and is nice pink color. NO SIGNS OF INFECTION. Const alert General Appearance: cooperative HEENT normocephalic Eyes General Eye: normal appearance of both eyes Resp normal respiratory effort Effort and Inspection: able to speak in complete sentences Extremity normal capillary refill Assessment & Plan Assessment/Plan (1) Sacral osteomyelitis: PLAN: Appreciate ID recommendations: Plan is for 6 weeks iv abx at discharge, they wrote for IV tip and po minocycline, stop date 08/11/24 with weekly labs and ID followup in 2 weeks. They wrote rx, d/w piano case and bench assembler. Continue pressure offloading and Dakins WTD dressings BID to the open area near donor site. Anticipate DC on 30 Jul 2024 per case management will f/u at wound care center for small open area weekly after DC Continue RANJAN drain care and frequent turns/offloading with sand bed Charges/Coding Procedures Integumentary 111xxx-113xx: [id number] Global Visit
[2024-07-27] MEDS: Clotrimazole/Betamethasone 1 Tube 1 APPLIC TOPICAL (11:07)
[2024-07-27] MEDS: Ferrous Sulfate 325 MG Tablet PO (11:08)
[2024-07-27] MEDS: Ensure Plus High Protein 120 ML LIQUID PO ×2 (11:09→17:18)
[2024-07-27 11:10] VITALS: PULSE 85; RESP 18; O2SAT 100
--- NOTE | 2024-07-27 11:23 | NURSING ---
WHEN TURNING PT IN BED WITH AID THIS NURSE NOTICED THE SUTURES AT DRAIN SITE, ON LT BUTTOCK WAS NOT INTACT. RN CALLED TO ROOM,DR.SISKA ELLINGTON.
--- NOTE | 2024-07-27 13:59 | CASEMGMT ---
Social Work SW received call from mother. SW explained this worker referring to a skilled HHC agency for nursing services with wound care and IV ATB. Mother has no preference and accepted list via email. Mother stated she visited pt last evening and will not be back to obtain list until day of DC. Mother stated she will not need IV ATB training expect for day of DC. SW sent list of skilled HHC providers including quality and resource data via [employer] link. Mother aware to notify this worker of preferences by tomorrow for this worker to place referrals. SW will continue to follow. Sade Hernández MSW CALL CENTER PROFESSIONAL
--- NOTE | 2024-07-27 14:57 | CHAPLAIN ---
Type of Pastoral Visit ___ Initial Visit _x__ Follow-up Visit ___ On-call Visit ___ General Patient Visit ___ Spiritual Assessment ___ Family Conference ___ Bereavement ___ Rapid Response ___ Code Blue ___ Other (describe below) Pastoral Care Referral From _x__ Patient ___ Family ___ Nurse ___ Physician ___ Business Process Associate ___ Automatic Presser ___ Other (describe below) Sacrament/Intervention _x__ Active listening ___ Anointing ___ Moravian ___ Bereavement ___ Communion ___ Clementina exploration ___ ___ Life review ___ Prayer ___ Reconciliation ___ Sacrament of Sick _x__ Supportive presence ___ Wedding ___ Other (describe below) Pastoral Comments follow up to check on patient who has been in the hospital or TCU for a long time; pt is awake and welcoming; pt states that he doesn't have any concerns and that he is going home on Friday; pt is happy about going home; pt does not have concerns; pt has accepted his stay in the hospital
[2024-07-27 15:55] VITALS: TEMP 36.9
--- NOTE | 2024-07-27 16:14 | NURSING ---
UPDATED PT ON A STAFF MEMBER TESTED POSITIVE FOR COVID. THIS NURSE COULD NOT GET A HOLD OF PT MOM,PT STATED I WILL TRY AND CALL HER. PT MOM ALSO DID NOT COME IN FOR IV OR WOUND TRAINING TODAY AGREED ON. RN AWARE.
[2024-07-27] MEDS: 0.9% Normal Saline (100mL Bag) 100 ML 15 ML IV (17:13)
--- NOTE | 2024-07-27 19:05 | NURSING ---
JOB SETTER, EDILSON MARRERO FROM OFFICE CAME IN TO LOOK AT DRAIN SITE. ELIDA PULLED DRAIN OUT AND APPLIED DRY DRESSING.
--- NOTE | 2024-07-27 20:23 | DS.PCM_ITS ---
Providers Date of Admission: 07/10/24 Primary Care Physician: Dr. Lucia Parmar MD Consultations 07/10/24 16:30 Consult: Onc/Wound/bottom polisher Routine Comment: Reason for Consult:: Sacral Ulcer 07/11/24 07:19 Consult: Gastroenterology Routine Consulting Provider: Aniceto Cheng Reason for Consult: Iron deficiency anemia, hemoccult + EMERGENT Consult: No Notified: Yes Date Notified: 07/11/24 Time Notified: 07:45 Method of Notification: Text Consult: Plastic Surgery Routine Consulting Provider: Myron Rodriguez Reason for Consult: s/p Flap. EMERGENT Consult: No Notified: Yes Date Notified: 07/11/24 Time Notified: 07:19 Method of Notification: Text 07/23/24 11:23 Consult: Infectious Disease Routine Consulting Provider: Myron Light Reason for Consult: IV ATB/ need prescription for discharge home EMERGENT Consult: No Notified: Yes Date Notified: 07/23/24 Time Notified: 11:23 Method of Notification: Answering Service Reason For Visit: SACRAL ULCER SPINA BIFIDA Diagnosis Discharge Diagnosis (1) Sacral osteomyelitis: Status: Acute Code(s): M46.28 - Osteomyelitis of vertebra, sacral and sacrococcygeal region Plan 28 year old male with below past medical history hospitalized for sacral pressure ulcer/chronic osteomyelitis, underwent flap surgery 07/07/[address] Rodriguez, complicated by iron deficiency anemia, admitted to TCU with debility, here for rehabilitation, strengthening, intravenous antibiotics, prior to discharge home with family. * Debility - PT/OT. * Pain - Tylenol 1000mg q6 prn pain (1-10). * Bowel - senna/colace 1 tablet bid prn. * Adult immunization - Administer pneumonia vaccine, covid vaccine, flu vaccine as appropriate. * DVT prophylaxis - Lovenox 40mg sc daily. * Nutrition - Ensure Plus 120mL po tidcm. * Iron deficiency anemia - Ferrous sulfate 325mg daily, Hemoccult +, consult Dr. Cheng. * Seizure disorder - Keppra 500mg bid. * Chronic sacral osteomyelitis s/p debridement/flap - Meropenem 1gm iv q8 thru 08/11/2024, Minocycline 100mg bid thru 08/13/2024. Medications at Discharge Home Medications ferrous sulfate 325 mg (65 mg iron) tablet (FeroSul) 325 mg PO DAILY@1200 supplement 90 days #90 tabs 01/31/23 levetiracetam 500 mg tablet (Keppra) 500 mg PO BID seizures #60 tabs 03/27/23 catheter 14 Fr (Bard Coude Tip Catheter) #120 ea 04/02/23 meropenem 1 gram intravenous solution 1 g IV Q8H 18 days 07/23/24 minocycline 100 mg capsule 100 mg PO BID 18 days #36 caps 07/23/24 citalopram 10 mg tablet 10 mg PO DAILY 30 days #30 tabs 07/27/24 food supplemt, lactose-reduced 0.08 gram-1.5 kcal/mL oral liquid (Ensure Plus High Protein) 120 ml PO 4X/DAY 30 days #14,400 mL 07/27/24 lansoprazole 15 mg capsule,delayed release 30 mg (2 x 15 mg) PO BID 30 days #120 caps 07/27/24 mirtazapine 15 mg tablet 7.5 mg (1/2 x 15 mg) PO QHS 30 days #15 tabs 07/27/24 potassium chloride 20 mEq tablet,extended release(part/cryst) 20 meq PO BIDCM 30 days #60 tabs 07/27/24 Hospital Course Operations - (see below.) Procedures EGD Summary of Care Provided Minutes Spent on Discharge: 35 Hospital Course: 28 year old male with below past medical history hospitalized for sacral pressure ulcer/chronic osteomyelitis, underwent flap surgery 07/07/[address] Rodriguez, complicated by iron deficiency anemia, admitted to TCU with debility, here for rehabilitation, strengthening, intravenous antibiotics, prior to discharge home with family. 07/14/2024 Dr. 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 Biopsied. - Non-bleeding gastric ulcer with no stigmata of bleeding. Biopsied. - No gross lesions in the first portion of the duodenum. Recommendations : - Return patient to referring hospital for ongoing care. - Resume previous diet. - Continue present medications. - Await pathology results. - Repeat upper endoscopy in 3 months to check healing. - Return to GI office in 2 months. - Use Protonix (pantoprazole) 40 mg PO BID. 07/23/2024 Dr. Light: (1) Sacral osteomyelitis: PLAN: Taken to OR 06/30/[address] Rodriguez, surg cx with CoNS x2, AcB, e faecalis, and corynebacter so far. Has remote h/o MDR AcB and pseudomonas. Covering with vanc, gent, flagyl for now. Plan is for 6 weeks iv abx at discharge, wrote for IV tip and po minocycline, stop date 08/11/24 with weekly labs and ID followup in 2 weeks. Wrote rx, d/w family preservation caseworker. Discharge home with parents 07/30/2024, [facility] SN, IV ATB's. Physical Exam Const alert General Appearance: cooperative HEENT normocephalic Eyes PERRL and EOMs intact bilaterally Neck supple, no JVD and no carotid bruits Resp normal respiratory effort, normal air movement and clear to auscultation bilaterally Cardio regular rate and regular rhythm GI normal to inspection, nondistended, normoactive bowel sounds, non-tender and non-distended Bladder / Kidney Exam: catheter in place suprapubic Extremity normal capillary refill General Extremity: Negative for edema Skin no rashes or lesions noted Skin Narrative: Flap per wound nurse. General Skin Exam: no breakdown Psych affect normal Appearance: appropriate Weight / BMI Weight Weight: 56.699 kg Body Mass Index (BMI) 14.8 ABG / Lab / Microbiology Data 07/26/24 05:07 07/26/24 05:07 Microbiology: Microbiology 07/18/24 10:55 Urine, Catheterized Urine Culture - Final Culture exhibits no growth. D/C Instructions Discharge Diet: No restrictions Discharge Activity: Return to Normal Activity and May Shower Weight Bearing Status: No weight bearing (Complete bed rest.) Call your doctor if you observe: Fever of 101 or Higher, Inability to urinate, Inability to have a bowel movement, Shortness of breath, Dizziness, Fainting spells, Swelling in the ankles, Chest pain and Uncontrolled pain DC O2, CPAP, BIPAP Needs Home O2 Discharge instructions: No Additional Instructions: Discharge home with parents 07/30/2024, [facility], IV ATB's. Please Follow Up With: When: 09/11/2024. Meaningful Use Info Meaningful Use Meaningful Use Diagnoses (Choose all that apply): None applicable Ischemic Stroke Statin Dosing Therapy Reference: STATIN DOSE THERAPY REFERENCE: * Patients > 75 years receive moderate or high dose statin therapy. * Patients 75 years or YOUNGER should receive HIGH intensity statin dose unless contraindicated. You will be required to document reason for non-treatment if statin daily dose does not meet guidelines. HIGH DOSE STATIN THERAPY DAILY Atorvastatin > than or = to 40 mg Rosuvastatin > than or = to 20 mg Amlodipine + Atorvastatin > than or = to 2.5/40 mg Ezetimibe + Simvastatin 10/80 mg Simvastatin 80mg Discharge Plan Admission Admit Date/Time: 07/10/24 15:21 Primary Reason for Your Visit: Debility. Attending Provider: Simon An Chi Primary Care Provider: Lucia Parmar Consulting Providers: Myron Rodriguez; Friend,Aniceto; Myron Light Instructions Additional Instructions / Restrictions: Discharge home with parents 07/30/2024, [facility], IV ATB's. Discharge Orders/Prescriptions Prescriptions: New minocycline 100 mg Capsule 100 mg PO BID 18 Days Qty: 36 0RF Rx Instructions: stop date 08/11/24. meropenem 1 gram recon soln 1 g IV Q8H 18 Days Rx Instructions: stop date 08/11/24. Dx: sacral osteo. Weekly bmp, cbc, LFT, and ESR. fax to [phone]. Routine picc care per protocol. citalopram 10 mg Tablet 10 mg PO DAILY 30 Days Qty: 30 0RF potassium chloride 20 mEq Tablet,Er Particles/Crystals 20 meq PO BIDCM 30 Days Qty: 60 0RF lansoprazole 15 mg Capsule,Delayed Release(Dr/Ec) 30 mg PO BID 30 Days Qty: 120 0RF mirtazapine 15 mg Tablet 7.5 mg PO QHS 30 Days Qty: 15 0RF Ensure Plus High Protein 0.08 gram-1.5 kcal/mL Liquid 120 ml PO 4X/DAY 30 Days Qty: 33914 0RF Continued levetiracetam [Keppra] 500 mg tablet 500 mg PO BID Qty: 60 0RF ferrous sulfate [FeroSul] 325 mg (65 mg iron) Tablet 325 mg PO DAILY@1200 90 Days Qty: 90 0RF Discontinued potassium 99 mg tablet 99 mg PO DAILY meropenem 1 gram recon soln 1 g IV Q8H 34 Days Rx Instructions: stop date 08/11/24. Dx: sacral osteo. Weekly bmp, cbc, LFT, and ESR. fax to [phone]. Routine picc care per protocol. minocycline 100 mg capsule 100 mg PO BID Qty: 68 0RF Rx Instructions: Take two caps for 1st dose, then 1 cap bid after that No Action (DME) Bard Coude Tip Catheter 14 Fr misc See Rx Instructions .Route Qty: 120 5RF Rx Instructions: As directed Referrals / Follow Up: Lucia Parmar MD [Primary Care Provider] - Myron Rodriguez MD [Med Staff - Active Staff] - 08/06/24 (Wound center.) Disposition Disposition (needs filled in before D/C Order can be placed): Home Health Service
[2024-07-27] MEDS: Mirtazapine 15 MG Tablet 7.5 MG PO (22:41)
--- NOTE | 2024-07-27 23:35 | NURSING ---
Offered straight cath and bladder scan, patient refuses at this time despite education
[2024-07-28] MEDS: Enoxaparin 40 MG/0.4 ML Syringe SC (06:26)
[2024-07-28] MEDS: 0.9% Saline Lock 10 ML Syringe IV ×3 (06:26→22:56)
[2024-07-28] MEDS: Meropenem 1 GM in 0.9% Normal Saline (100mL MB+) 100 ML IV ×3 (06:26→22:50)
[2024-07-28] MEDS: Potassium Chloride Oral Tablet 20 MEQ PO ×2 (09:09→16:24)
[2024-07-28] MEDS: Citalopram 10 MG Tablet PO (09:10)
[2024-07-28] MEDS: Lansoprazole 15 MG Capsule.DR 30 MG PO ×2 (09:10→22:33)
[2024-07-28] MEDS: Minocycline 100 MG Capsule PO ×2 (09:10→22:33)
[2024-07-28] MEDS: levETIRAcetam 500 MG Tablet PO ×2 (09:10→22:33)
[2024-07-28 09:13] VITALS: BP 120/67; PULSE 99; RESP 16; O2SAT 100
[2024-07-28] MEDS: Ferrous Sulfate 325 MG Tablet PO (11:26)
[2024-07-28] MEDS: Ensure Plus High Protein 120 ML LIQUID PO ×2 (11:26→16:28)
[2024-07-28] MEDS: DAKIN'S SOL HALF STRENGTH (=0.25%) TOPICAL ×2 (13:57→22:36)
[2024-07-28 14:00] VITALS: PULSE 99; RESP 18; O2SAT 100
[2024-07-28 16:00] VITALS: TEMP 36.9
[2024-07-28] MEDS: Mirtazapine 15 MG Tablet 7.5 MG PO (22:34)
--- NOTE | 2024-07-28 22:40 | NURSING ---
Dressing to right buttock changed per order with dakins solution, ABD, and tape. Date, time, and initials on dressing. Old RANJAN site on left buttock dressing changed, old dressing was saturated with serous fluid. Gauze applied, secured with tape. Date, time, and initials present on dressing. Patient tolerated dressing changes well, denied pain. Patient repositioned to right side. Encouraged patient to straight cath, patient refused and said not yet, I'll let you know denies additional needs.
--- NOTE | 2024-07-29 04:00 | NURSING ---
Patient put photonics engineering technologist light stating he was leaking patient stated he needed to straight cath himself. Pt self cathed for 800mL of urine via suprapubic straight cath.
[2024-07-29] MEDS: Enoxaparin 40 MG/0.4 ML Syringe SC (06:34)
[2024-07-29] MEDS: Meropenem 1 GM in 0.9% Normal Saline (100mL MB+) 100 ML IV ×3 (06:35→23:05)
[2024-07-29] MEDS: 0.9% Normal Saline (100mL Bag) 100 ML 30 ML IV (06:36)
--- NOTE | 2024-07-29 09:03 | CASEMGMT ---
Addendum entered by Sade Hernández 07/29/24 11:26: [facility] DC paperwork and ATB needs sent via [facility]. Addendum entered by Sade Hernández 07/29/24 10:49: [facility] cannot accept d/t location. SW [facility] and given to mother. Original Note: Social Work SW placed two more phone calls to mother, with no return response. D/T need of safe DC, referral made to [facility] to follow for SN needs. Sade SCANLONW
--- NOTE | 2024-07-29 09:38 | PN.SURG_ITS ---
Subjective Subjective Endorses good wound care in the rehab floor (TCU). Ready to go home. Reports good pressure offloading. Objective Data Objective Data Vital Signs: Vital Signs Temp Pulse Resp BP Pulse Ox O2 Del Method 98.5 F 99 18 120/67 100 Room Air 07/28/24 16:00 07/28/24 14:00 07/28/24 14:00 07/28/24 09:13 07/28/24 14:00 07/29/24 06:25 Oxygen Delivery Method Room Air Weight: 124 lb 15.998 oz Body Mass Index (BMI) 14.8 Intake & Output: Intake and Output for Last 24 Hours 07/27/24 07/28/24 07/29/24 23:59 23:59 23:59 Intake Total 1365.00 / 1365.00 982 / 982 240 / 240 Output Total 1630 / 1630 3250 / 3250 800 / 800 Balance -265.00 / -265.00 -2268 / -2268 -560 / -560 Lab / Micro Data 07/26/24 05:07 07/26/24 05:07 Micro: Microbiology 07/28/24 06:24 Nasal Secretion SARS-CoV-2 Antigen (Rapid) - Final 07/18/24 10:55 Urine, Catheterized Urine Culture - Final Culture exhibits no growth. Physical Exam Narrative Sacral flap with one area of opening near the donor site. No drainage currently from this area. granulating well. Does not tunnel. Interval removal of the drain. No fluid collections. Capillary refill <2 seconds. Flap is healing nicely and is nice pink color. NO SIGNS OF INFECTION. Const alert General Appearance: cooperative HEENT normocephalic Eyes General Eye: normal appearance of both eyes Resp normal respiratory effort Effort and Inspection: able to speak in complete sentences Extremity normal capillary refill Assessment & Plan Assessment/Plan (1) Sacral osteomyelitis: PLAN: Appreciate ID recommendations: Plan is for 6 weeks iv abx at discharge, they wrote for IV tip and po minocycline, stop date 08/11/24 with weekly labs and ID followup in 2 weeks. They wrote rx, d/w case finishing machine adjuster. Continue pressure offloading and Dakins WTD dressings BID to the open area near donor site. Anticipate DC on 30 Jul 2024 per case management will f/u at wound care center for small open area weekly after DC Continue frequent turns/offloading with sand bed Charges/Coding Procedures Integumentary [id number]: [id number] Global Visit
[2024-07-29 10:45] VITALS: BP 94/56; PULSE 75; RESP 18; O2SAT 98
[2024-07-29] MEDS: DAKIN'S SOL HALF STRENGTH (=0.25%) TOPICAL ×2 (10:47→23:16)
[2024-07-29] MEDS: Citalopram 10 MG Tablet PO (10:49)
[2024-07-29] MEDS: Potassium Chloride Oral Tablet 20 MEQ PO ×2 (10:49→17:27)
[2024-07-29] MEDS: levETIRAcetam 500 MG Tablet PO ×2 (10:50→22:57)
[2024-07-29] MEDS: Lansoprazole 15 MG Capsule.DR 30 MG PO ×2 (10:51→22:57)
[2024-07-29] MEDS: Minocycline 100 MG Capsule PO ×2 (10:51→22:58)
[2024-07-29] MEDS: Ferrous Sulfate 325 MG Tablet PO (11:02)
[2024-07-29] MEDS: Ensure Plus High Protein 120 ML LIQUID PO ×2 (11:05→17:27)
--- NOTE | 2024-07-29 11:10 | NURSING ---
EARLINE RN,WOUND NURSE AND IN TO SEE PT AND CHANGE DRESSINGS.
--- NOTE | 2024-07-29 13:41 | MDS.RN ---
MDS pain assessment complete.
[2024-07-29 14:00] VITALS: BP 104/57; PULSE 84; RESP 18; TEMP 36.9
[2024-07-29] MEDS: 0.9% Saline Lock 10 ML Syringe IV ×2 (14:24→22:59)
--- NOTE | 2024-07-29 14:50 | NURSING ---
PT MOM DID NOT SHOW UP AGAIN PER AGREEMENT FOR TRAINING ON IV AND WOUND DRESSING CHANGE. PT STRAIGHT CATHED SELF AT 10AM FOR 750 CC,BLADDER SCANNED FOR 0. AGAIN AT 1430 FOR 600 CC AND BLADDER SCANNED FOR 53. PT TOLERATED WELL
[2024-07-29] MEDS: Mirtazapine 15 MG Tablet 7.5 MG PO (22:57)
[2024-07-30] MEDS: 0.9% Saline Lock 10 ML Syringe IV (05:20)
[2024-07-30] MEDS: Enoxaparin 40 MG/0.4 ML Syringe SC (05:21)
[2024-07-30] MEDS: Meropenem 1 GM in 0.9% Normal Saline (100mL MB+) 100 ML IV ×2 (05:23→11:45)
--- NOTE | 2024-07-30 05:29 | NURSING ---
This nurse encouraged patient to straight cath this morning since he had refused to all night. This patient said he will in the morning. This nurse encouraged patient to do it at this time especially with a high traffic morning between [id number]. Patient refused and said, again, he will do it in the morning and that he does not feel he needs to at this time.
[2024-07-30 05:39] VITALS: PULSE 88; RESP 16
[2024-07-30 10:00] VITALS: BP 91/53; PULSE 87; RESP 18; TEMP 36.5; O2SAT 98
[2024-07-30] MEDS: levETIRAcetam 500 MG Tablet PO (10:03)
[2024-07-30] MEDS: Lansoprazole 15 MG Capsule.DR 30 MG PO (10:03)
[2024-07-30] MEDS: Citalopram 10 MG Tablet PO (10:03)
[2024-07-30] MEDS: Potassium Chloride Oral Tablet 20 MEQ PO (10:03)
[2024-07-30] MEDS: Minocycline 100 MG Capsule PO (10:04)
[2024-07-30 11:10] VITALS: BP 91/53; PULSE 87; RESP 18; TEMP 36.5; O2SAT 98
--- NOTE | 2024-07-30 11:15 | NURSING ---
katelynn left with mother regarding IV ATB's/phone number and extension left.
[2024-07-30] MEDS: Ferrous Sulfate 325 MG Tablet PO (11:32)
[2024-07-30] MEDS: Ensure Plus High Protein 120 ML LIQUID PO (11:32)
[2024-07-30] MEDS: DAKIN'S SOL HALF STRENGTH (=0.25%) TOPICAL (11:33)
--- NOTE | 2024-07-30 11:38 | NURSING ---
Updated by SUE that need to give 1400 dose of merrem before resident DCs. RN spoke with Akin in pharmacy, ok to start 1400 dose now.
--- NOTE | 2024-07-30 14:01 | NURSING ---
Wound nurse completed treatment to sacral area per orders this shift.
--- NOTE | 2024-07-30 14:08 | NURSING ---
Updated that mother in room and asking about giving antibiotic. In room mother seemed upset, demanded to know why antibiotic already running instead of being started with her here. Let her know that nursing wasn't aware that she'd planned to do antibiotic today, but had planned 2 previous teaching sessions that she'd not shown up for. She said she'd cancelled those. 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 RN offered education and demonstration on flushing line, priming tubing etc, but she declined. Let her know RN unsure exactly what tubing and setup company would send. She was tearful about that and said that was what I came to find out. Discussed that home health would be her resource for any questions. She reports she doesn't want home health, says sometimes they don't even show up. Re-iterated with her that she needs to let HH come out, they will be a great resource and can draw labs, do PICC dressing changes etc. Offered encouragement asked her if there was anything else RN could go over with her. She declined at this time. Updated SUE Stuart that mother at bedside.
--- NOTE | 2024-07-30 14:48 | WOUNDNOTE ---
wound and old drain site dressings change with patient's mother. mother states she us able to change the dressing at home and denies questions or concerns. Pt tolerated dressing change well.
== END 2024-07-30 15:08 | disposition home health service (06) | DRG 949 ==
PROVIDERS: Surgery Plastic and Reconstructive Surgery; Admitting Provider Family Medicine Geriatric Medicine; PCP Internal Medicine; Referring Provider Family Medicine Geriatric Medicine; Visit Provider Family Medicine Geriatric Medicine
DX: Z48.817 Encounter for surgical aftercare following surgery on the skin and subcutaneous tissue (principal); L89.154 Pressure ulcer of sacral region, stage 4; E44.1 Mild protein-calorie malnutrition; Q05.2 Lumbar spina bifida with hydrocephalus; M46.28 Osteomyelitis of vertebra, sacral and sacrococcygeal region; T81.31XA Disruption of external operation (surgical) wound, not elsewhere classified, initial encounter; Z68.1 Body mass index [BMI] 19.9 or less, adult; G40.909 Epilepsy, unspecified, not intractable, without status epilepticus; D50.9 Iron deficiency anemia, unspecified; Z93.3 Colostomy status; K21.9 Gastro-esophageal reflux disease without esophagitis; F41.9 Anxiety disorder, unspecified; N31.9 Neuromuscular dysfunction of bladder, unspecified; Z79.899 Other long term (current) drug therapy; K25.9 Gastric ulcer, unspecified as acute or chronic, without hemorrhage or perforation; Y84.8 Other medical procedures as the cause of abnormal reaction of the patient, or of later complication, without mention of misadventure at the time of the procedure
CPT/HCPCS: 36415; 80048; 80076; 81001; 82040; 84134; 85025; 85652; 87086; 87811; 92507; 92523; 97110; 97129; 97130; 97162; 97530; 97802; J2185; J2997; A4216

== ENCOUNTER 2024-07-14 06:14 | Day surgery (SDC) | payer MEDICARE, MEDICAID, SELFPAY ==
--- NOTE | 2024-07-13 16:28 | PAT.ANESEVAL ---
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 When Was Last Pacemaker Check QUESTION #4 FULL TEXT: You/Your Family Experience fever (hyperthermia) with Anesthesia Last Oral Intake Last Oral intake: Last Oral Intake NPO since Meds taken in AM with sips of water? Meds patient instructed to take am of surgery PONV PONV - fuel cell systems engineer: PONV - fuel cell systems engineer Female No 07/13/24 13:56 HX of Motion Sickness No 07/13/24 13:56 HX of N/V After Surgery No 07/13/24 13:56 Non-Smoker Yes 07/13/24 13:56 Duration of Surgery greater No 07/13/24 13:56 than 60 minutes Number of Risk Factors 1 07/13/24 13:56 PONV Score Low Risk 07/13/24 13:56 Height & Weight Height & Weight: Anesthesia: Height & Weight Height 6 ft 07/11/24 10:02 Respiratory Assessment Respiratory Assessment - fuel cell systems engineer: Respiratory Tract Infection Hx - fuel cell systems engineer Hx Respiratory Tract Infection No 07/13/24 13:56 STOP Sleep Apnea STOP Sleep Apnea - fuel cell systems engineer: STOP Sleep Apnea - fuel cell systems engineer Hx Hypertension No 07/13/24 13:56 Hx Sleep Apnea No 07/13/24 13:56 CPAP BIPAP Do you snore loudly (louder No 07/13/24 13:56 than talking or can be heard Do you often feel tired/ No 07/13/24 13:56 fatigued/ sleepy during daytime? Has anyone observed you stop No 07/13/24 13:56 breathing during sleep? STOP Results Negative 07/13/24 13:56 QUESTION #5 FULL TEXT : Do you snore loudly (louder than talking or can be heard through closed doors)? 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 Specify any problems Hx of Preganancy in last 3 N/A 07/13/24 13:56 Months Nurse Filling Out Transfusion VCHRISTIN 07/13/24 13:56 & Questions: Date: 07/13/24 07/13/24 13:56 Time: 13:58 07/13/24 13:56 Patient unable to answer at this time (ie. confused, unrespo /Reproduction History /Reproductive History - fuel cell systems engineer: /Reproductive Hx- fuel cell systems engineer Hx Now Gestational Age (in weeks): EDC: Hx Hx Para Hx Section SAB No 07/13/24 13:56 PFSH Medical History (Updated 07/13/24 @ 13:56 by Nafisa Angel) PICC (peripherally inserted central catheter) in place Multiple drug resistant organism (MDRO) culture positive Open wound Low iron Gastric reflux Methicillin resistant Staphylococcus epidermidis infection Cognitive decline Anxiety Psoriasis Uses wheelchair Kidney stone Seizures Incontinence of bowel Heartburn Non-smoker History of edema Hx of spina bifida Stage IV pressure ulcer of sacral region Congenital hip dysplasia Home Medications ?Medication ?Instructions ?Recorded ?Last Taken ?Type ferrous sulfate 325 mg (65 mg 325 mg PO DAILY@1200 supplement 90 01/31/23 Unknown Rx iron) tablet (FeroSul) days #90 tabs levetiracetam 500 mg tablet 500 mg PO BID seizures #60 tabs 03/27/23 06/29/24 03:30 Rx (Keppra) catheter 14 Fr (Bard Coude Tip #120 ea 04/02/23 Unknown Rx Catheter) potassium 99 mg tablet 99 mg PO DAILY SUPPLEMENT 06/30/24 Unknown History meropenem 1 gram intravenous 1 g IV Q8H sacral osteo 34 days 07/08/24 Unknown Rx solution minocycline 100 mg capsule 100 mg PO BID infection #68 caps 07/08/24 Unknown Rx Allergy/AdvReac Type Severity Reaction Status Date / Time latex Allergy Hives Verified 06/30/24 06:15 Penicillins Allergy Nausea/Vom/ Verified 06/30/24 06:15 Diarrhea levofloxacin (From Levaquin) AdvReac Mild Nausea/Vom/ Verified 06/30/24 06:15 Diarrhea Family History Other No significant family history Surgical History (Updated 07/13/24 @ 13:56 by Nafisa Angel) Hx of surgical procedure H/O bilateral hip replacements Colostomy in place Presence of urostomy S/P flap graft Ventricular shunt in place Social History household members: family current occupational status: disabled Smoking Status: Never smoker Electronic Cigarette Use: not used alcohol intake: never substance use type: does not use caffeine: Yes what type of physical activity do you participate in: none seatbelt use: always do you feel safe at home: Yes Audit: Pertinent Findings Pertinent Findings EKG Perinent findings: July 12, 2024. Sinus tachycardia 103 bpm. Compared to EKG of January 2023. No significant change was found. Recommendation Anesthesia Recommendation Anesthesia recommendation: OPTIMIZED for anesthesia
[2024-07-14] VITALS (8 sets, daily range): BP systolic 86–105; BP diastolic 57–65; PULSE 76–94; RESP 14–16; TEMP 36.2–36.6; O2SAT 98–100; BMI 15.5
--- NOTE | 2024-07-14 06:39 | PRE.ANES_ITS ---
ASA Classification* ASA Classification ASA Classification: 3 Assessment & Plan Anesthesia* Anesthesia Assessment Anesthesia Assessment: Discussed sedation and/or anesthesia options, risks, benefits, and alternatives with patient/parents/legal guardian/POA. Questions invited. The patient/parents/legal guardian/POA seems to understand and agrees to proceed with anesthesia plan. Reviewed the physical assessment, medical history, allergy history and patient home medications list prior to surgery/procedure/anesthetic and documented any changes. Performed airway and anesthesia risk assessments. Anesthesia Type Anesthesia Type: MAC History Source History Obtained from:: Patient and Chart Anesthesia Focused Assessment* Temperature: 97.8 F Pulse Rate: 94 Blood Pressure: 105/65 Respiratory Rate: 16 Pulse Ox: 100 Oxygen Delivery Method: Room Air Airway Assessment Mouth opens: >3 cm Mallampati Score: II Teeth Condition: Intact Neck Range of motion (ROM): Full ROM Focused Labs Anesthesia Preop lab: CBC WBC 11.7 K/mm3 (4.4-11.0) H 07/11/24 05:24 RBC 4.15 M/mm3 (4.6-6.2) L 07/11/24 05:24 Hgb 8.9 g/dL (13.0-16.5) L 07/11/24 05:24 Hct 29.6 % (40-54) L 07/11/24 05:24 Plt Count 384 K/mm3 (150-450) 07/11/24 05:24 CHEMISTRY Potassium 3.7 mmol/L (3.5-5.1) 07/14/24 05:36 Sodium 139 mmol/L (136-145) 07/14/24 05:36 Magnesium 2.0 mg/dL (1.6-2.6) 01/29/23 12:20 BUN 16 mg/dL (7-18) 07/14/24 05:36 Creatinine 0.79 mg/dL (0.70-1.30) 07/14/24 05:36 Glucose 89 mg/dL (74-106) 07/14/24 05:36 COAG PT 16.8 SECONDS (11.7-14.9) H 01/29/23 12:20 Pre-Assessment Diagnosis/Proposed Procedure Planned Operative Procedure(s): EGD Anesthesia History 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 When Was Last Pacemaker Check QUESTION #4 FULL TEXT: You/Your Family Experience fever (hyperthermia) with Anesthesia Last Oral Intake Last Oral intake: Last Oral Intake NPO since 05:43 07/14/24 06:29 Meds taken in AM with sips of water? Meds patient instructed to keppra 0543 07/14/24 06:29 take am of surgery PONV PONV - neonatal pediatric nurse: PONV - neonatal pediatric nurse Female No 07/13/24 13:56 HX of Motion Sickness No 07/13/24 13:56 HX of N/V After Surgery No 07/13/24 13:56 Non-Smoker Yes 07/13/24 13:56 Duration of Surgery greater No 07/13/24 13:56 than 60 minutes Number of Risk Factors 1 07/13/24 13:56 PONV Score Low Risk 07/13/24 13:56 Height & Weight Height & Weight: Anesthesia: Height & Weight Height 6 ft 07/14/24 06:29 Weight: 52.163 kg 07/14/24 06:29 Body Mass Index (BMI) 15.5 07/14/24 06:29 Respiratory Assessment Respiratory Assessment - neonatal pediatric nurse: Respiratory Tract Infection Hx - neonatal pediatric nurse Hx Respiratory Tract Infection No 07/13/24 13:56 STOP Sleep Apnea STOP Sleep Apnea - neonatal pediatric nurse: STOP Sleep Apnea - neonatal pediatric nurse Hx Hypertension No 07/13/24 13:56 Hx Sleep Apnea No 07/13/24 13:56 CPAP BIPAP Do you snore loudly (louder No 07/13/24 13:56 than talking or can be heard Do you often feel tired/ No 07/13/24 13:56 fatigued/ sleepy during daytime? Has anyone observed you stop No 07/13/24 13:56 breathing during sleep? STOP Results Negative 07/13/24 13:56 QUESTION #5 FULL TEXT : Do you snore loudly (louder than talking or can be heard through closed doors)? 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 Specify any problems Hx of Preganancy in last 3 N/A 07/13/24 13:56 Months Nurse Filling Out Transfusion VCHRISTIN 07/13/24 13:56 & Questions: Date: 07/13/24 07/13/24 13:56 Time: 13:58 07/13/24 13:56 Patient unable to answer at this time (ie. confused, unrespo /Reproduction History /Reproductive History - neonatal pediatric nurse: /Reproductive Hx- neonatal pediatric nurse Hx Now Gestational Age (in weeks): EDC: Hx Hx Para Hx Section SAB No 07/13/24 13:56 [facility] Medical History PICC (peripherally inserted central catheter) in place Multiple drug resistant organism (MDRO) culture positive Open wound Low iron Gastric reflux Methicillin resistant Staphylococcus epidermidis infection Cognitive decline Anxiety Psoriasis Uses wheelchair Kidney stone Seizures Incontinence of bowel Heartburn Non-smoker History of edema Hx of spina bifida Stage IV pressure ulcer of sacral region Congenital hip dysplasia Home Medications ?Medication ?Instructions ?Recorded ?Last Taken ?Type ferrous sulfate 325 mg (65 mg 325 mg PO DAILY@1200 supplement 90 01/31/23 Unknown Rx iron) tablet (FeroSul) days #90 tabs levetiracetam 500 mg tablet 500 mg PO BID seizures #60 tabs 03/27/23 07/14/24 Rx (Keppra) catheter 14 Fr (Bard Coude Tip #120 ea 04/02/23 Unknown Rx Catheter) potassium 99 mg tablet 99 mg PO DAILY SUPPLEMENT 06/30/24 Unknown History meropenem 1 gram intravenous 1 g IV Q8H sacral osteo 34 days 07/08/24 Unknown Rx solution minocycline 100 mg capsule 100 mg PO BID infection #68 caps 07/08/24 Unknown Rx Allergy/AdvReac Type Severity Reaction Status Date / Time latex Allergy Hives Verified 07/14/24 06:28 Penicillins Allergy Nausea/Vom/ Verified 07/14/24 06:28 Diarrhea levofloxacin (From Levaquin) AdvReac Mild Nausea/Vom/ Verified 07/14/24 06:28 Diarrhea Family History Other No significant family history Surgical History (Updated 07/13/24 @ 13:56 by Nafisa Angel) Hx of surgical procedure H/O bilateral hip replacements Colostomy in place Presence of urostomy S/P flap graft Ventricular shunt in place Social History household members: family current occupational status: disabled Smoking Status: Never smoker Electronic Cigarette Use: not used alcohol intake: never substance use type: does not use caffeine: Yes what type of physical activity do you participate in: none seatbelt use: always do you feel safe at home: Yes Review of Systems (Anesthesia) ROS Narrative System reviewed and no additional complaints, except as documented.
--- NOTE | 2024-07-14 07:00 | EGD_PTH ---
PATIENT: INESSA ADAMES PETRONA LOC: [facility] U#:[id number] AGE/SX: 28/M ROOM: RE07/14/[address]: Dr. Aniceto Cheng DO : 1995 BED: DIS: 07/14/2024 SPEC #: [id number] RECD: 07/14/24 11:25 STATUS: ELENO ALEXYS #: [id number] JOSE ALFREDO: 07/14/24 07:[address]: Aniceto Cheng DEPT: SURGICAL PATHOLOGY RECD BY: Elle Parry ENTERED: 07/14/24 12:21 SP TYPE: EGD BIOPSY CHARIS DR: Dr. Lucia Parmar MD Tissues: A - Gastric mucous membrane B - Esophagus, NOS Procedures: Special Stain Group I Surgery Specimen Level IV Alcian Blue/PAS (control) HEADER OPERATION: EGD biopsy PRE-OP DIAGNOSIS: Anemia, debility, sacral osteomyelitis, decubitus ulcer of sacral area, iron deficiency anemia, spina bifida, hypokalemia, neurogenic bladder, chronic indwelling vaca catheter, seizure disorder TISSUE SUBMITTED: A- Gastric ulcer biopsy, B- Distal esophagus biopsy MICROSCOPIC DIAGNOSIS A. Gastric ulcer, biopsy: Moderate chronic active colitis. See comment. B. Distal esophagus, biopsy: Fragments of gastroesophageal mucosa with chronic inflammation. Intestinal metaplasia (goblet cell metaplasia) not identified. See comment. 07/15/2024 COMMENT A. The results of immunohistochemistry for Helicobacter pylori will be reported separately ([id number]). B. Alcian blue/PAS stain with matched control is used in the evaluation of the specimen. MICROSCOPIC DESCRIPTION Slides are reviewed. GROSS DESCRIPTION A. Received in fixative is one container labeled with the patient's name and designated Gastric ulcer biopsy. The specimen consists of multiple irregular fragments of light irwin soft tissue that in aggregate measure 1.1 x 0.3 x 0.2 cm. The specimen is totally submitted in one cassette. B. Received in fixative is one container labeled with the patient's name and designated Distal esophagus biopsy. The specimen consists of multiple irregular fragments of light irwin soft tissue that in aggregate measure 0.8 x 0.2 x 0.1 cm. The specimen is totally submitted in one cassette. 07/14/2024 TC:2 CPT:03714n2,55211
--- NOTE | 2024-07-14 07:00 | IMM_PTH ---
PATIENT: INESSA ADAMES PETRONA LOC: [facility] U#:[id number] AGE/SX: 28/M ROOM: RE07/14/[address]: Dr. Aniceto Cheng DO : 1995 BED: DIS: 07/14/2024 SPEC #: [id number] RECD: 07/14/24 11:58 STATUS: ELENO REVladislav #: [id number] JOSE ALFREDO: 07/14/24 07:[address]: Aniceto Cheng DEPT: IMMUNOHISTOCHEMISTRY RECD BY: Miguel A Flores ENTERED: 07/14/24 11:58 SP TYPE: IMMUNO OTHR DR: Dr. Lucia Parmar MD Tissues: A - Gastric mucous membrane Procedures: H Pylori (initial) PHYSICIAN & INSTITUTION [place] [id number] SPECIMEN INFORMATION: Tissue Source: A- Gastric ulcer biopsy Clinical Info: Anemia, debility, sacral osteomyelitis, decubitus ulcer of sacral area, iron deficiency anemia, spina bifida Specimen Number: [id number] CPT code: 71360 METHODOLOGY: Deparaffinized sections of prefer/formalin-fixed tissue or PAP/DQ stained slides are incubated with monoclonal/polyclonal antibodies/oligonucleotide probes. Localization is made via biotin free immunoperoxidase method. Appropriate controls are performed and reacted as expected. Results on target cell population are indicated in the following table: RESULTS: ANTIBODY / CLONE RESULT Block AH Pylori (polyclonal) negative These tests were developed and their performance characteristics determined by [facility]. They may not have been cleared or approved by the [place]. Food and Drug Administration. The FDA has determined that such clearance or approval is not necessary. The above immunohistochemical/dualISH markers are ordered and reviewed by the Pathologist. INTERPRETATION: A. Gastric ulcer, biopsy: Negative for Helicobacter pylori organisms. 07/15/2024
--- NOTE | 2024-07-14 07:25 | HP.PCM_ITS ---
HPI - General General Date of Admission: 07/14/24 Date of Service: 07/14/24 Chief Complaint: Anemia HPI Narrative INESSA ADAMES, is a 28 M who was transferred to the TCU after a long stay in the hospital because of treatment of a sacral wound and application of a wound VAC. He was started on vancomycin, gentamicin, Flagyl for history of MDR, ACB and Pseudomonas. 06/30/2024 Admit [facility]. He was also discovered to have a severe iron deficiency anemia. He had been getting IV Venofer for for severeiron deficiency anemia. He was Hemoccult tested and was positive. I was called for his GI bleed. REPLACED BY [facility] Medical History PICC (peripherally inserted central catheter) in place Multiple drug resistant organism (MDRO) culture positive Open wound Low iron Gastric reflux Methicillin resistant Staphylococcus epidermidis infection Cognitive decline Anxiety Psoriasis Uses wheelchair Kidney stone Seizures Incontinence of bowel Heartburn Non-smoker History of edema Hx of spina bifida Stage IV pressure ulcer of sacral region Congenital hip dysplasia Home Medications ?Medication ?Instructions ?Recorded ?Last Taken ?Type ferrous sulfate 325 mg (65 mg 325 mg PO DAILY@1200 supplement 90 01/31/23 Unknown Rx iron) tablet (FeroSul) days #90 tabs levetiracetam 500 mg tablet 500 mg PO BID seizures #60 tabs 03/27/23 07/14/24 Rx (Keppra) catheter 14 Fr (Bard Coude Tip #120 ea 04/02/23 Unknown Rx Catheter) potassium 99 mg tablet 99 mg PO DAILY SUPPLEMENT 06/30/24 Unknown History meropenem 1 gram intravenous 1 g IV Q8H sacral osteo 34 days 07/08/24 Unknown Rx solution minocycline 100 mg capsule 100 mg PO BID infection #68 caps 07/08/24 Unknown Rx Allergy/AdvReac Type Severity Reaction Status Date / Time latex Allergy Hives Verified 07/14/24 06:28 Penicillins Allergy Nausea/Vom/ Verified 07/14/24 06:28 Diarrhea levofloxacin (From Levaquin) AdvReac Mild Nausea/Vom/ Verified 07/14/24 06:28 Diarrhea Family History Other No significant family history Surgical History Hx of surgical procedure H/O bilateral hip replacements Colostomy in place Presence of urostomy S/P flap graft Ventricular shunt in place Social History household members: family current occupational status: disabled Smoking Status: Never smoker Electronic Cigarette Use: not used alcohol intake: never substance use type: does not use caffeine: Yes what type of physical activity do you participate in: none seatbelt use: always do you feel safe at home: Yes ROS Constitutional Constitutional: Denies fatigue, fever(s), poor appetite, weight gain or weight loss Gastrointestinal Gastrointestinal: Denies belching, bloating, change in bowel habits, change in stool character, chewing difficulty, coffee ground emesis, constipation, cramping, diarrhea, dyspepsia, dysphagia, early satiety, excessive flatus, fecal incontinence, heartburn, hematemesis, hematochezia, hemorrhoids, loose stools, melena, nausea, odynophagia, rectal bleeding, tenesmus, vomiting or weight changes Vital Signs Vital Signs Vital Signs: 07/14/24 06:29 07/14/24 06:29 07/14/24 06:41 Temperature 97.8 F 97.8 F Temperature Source Temporal Pulse Rate 94 94 Respiratory Rate 16 16 Respiratory Pattern Normal Blood Pressure 105/65 105/65 Blood Pressure Mean 78 Blood Pressure Source Monitor Blood Pressure Position Semi-Fowlers Blood Pressure Location Right Arm Pulse Ox 100 100 Oxygen Delivery Method Room Air Room Air Weight Weight: 115 lb Body Mass Index (BMI) 15.5 Physical Exam Const alert, oriented x3, no apparent distress and healthy appearing General Appearance: cooperative GI normal to inspection, nondistended, normoactive bowel sounds, soft to palpation, non-tender and non-distended Percussion: normal to percussion Rectal Exam: deferred Assessment & Plan Assessment/Plan (1) Anemia: PLAN: Assessment/Plan (1) Debility: (2) Sacral osteomyelitis: (3) Decubitus ulcer of sacral area: QUALIFIERS: Pressure injury stage: stage 4 Qualified Code(s): L89.154 - Pressure ulcer of sacral region, stage 4 (4) Iron deficiency anemia: (5) Spina bifida: QUALIFIERS: Spinal region: lumbosacral Presence of hydrocephalus: with hydrocephalus Qualified Code(s): Q05.2 - Lumbar spina bifida with hydrocephalus (6) Hypokalemia: (7) Neurogenic bladder: (8) Chronic indwelling Calderon catheter: (9) Seizure disorder: PLAN: Plan 28 year old male with multiple medical problems including a chronic sacral pres sure ulcer/chronic osteomyelitis, underwent flap surgery 07/07/[address] Rodriguez, complicated by iron deficiency anemia. Since he does have a big sacral wound with a wound VAC I think will be best to not prep him for your colonoscopy at this time and pursue an upper endoscopy to evaluate his upper GI tract. We would likely perform a push enteroscopy to see if we can evaluate up into his jejunum.
--- NOTE | 2024-07-14 07:52 | OP.EGD_ITS ---
Patient Name: Latonya Perez Procedure Date: 07/14/2024 7:31 AM Date of : 1995 Age: 28 Procedure: Upper GI endoscopy Indications: Acute post hemorrhagic anemia, Iron deficiency anemia, Heme positive stool, Melena Providers: Aniceto Cheng DO Medicines: Monitored Anesthesia Care Patient Profile: This is a 28 year old male. Refer to note in patient chart for documentation of history and physical. Patient has symptoms of acute epigastric abdominal pain. Complications: No immediate complications. Procedure: Pre-Anesthesia Assessment: - Prior to the procedure, a History and Physical was performed, and patient medications and allergies were reviewed. The patient is competent. The risks and benefits of the procedure and the sedation options and risks were discussed with the patient. All questions were answered and informed consent was obtained. Patient identification and proposed procedure were verified by the physician in the pre-procedure area. Mental Status Examination: alert and oriented. Airway Examination: normal oropharyngeal airway and neck mobility. Respiratory Examination: clear to auscultation. CV Examination: normal. Prophylactic Antibiotics: The patient does not require prophylactic antibiotics. Prior Anticoagulants: The patient has taken no anticoagulant or antiplatelet agents except for NSAID medication. ASA Grade Assessment: II - A patient with mild systemic disease. After reviewing the risks and benefits, the patient was deemed in satisfactory condition to undergo the procedure. The anesthesia plan was to use monitored anesthesia care (MAC). Immediately prior to administration of medications, the patient was re-assessed for adequacy to receive sedatives. The heart rate, respiratory rate, oxygen saturations, blood pressure, adequacy of pulmonary ventilation, and response to care were monitored throughout the procedure. The physical status of the patient was re-assessed after the procedure. After obtaining informed consent, the endoscope was passed under direct vision. Throughout the procedure, the patient's blood pressure, pulse, and oxygen saturations were monitored continuously. The Endoscope was introduced through the mouth, and advanced to the second part of duodenum. The upper GI endoscopy was accomplished without difficulty. The patient tolerated the procedure well. Scope In: 7:39:03 AM Scope Out: 7:42:40 AM Total Procedure Duration Time 0 hours 3 minutes 37 seconds Findings: The esophagus and gastroesophageal junction were examined with white light from a forward view and retroflexed position. There were esophageal mucosal changes consistent with long-segment Mcfarland's esophagus. These changes involved the mucosa at the upper extent of the gastric folds (39 cm from the incisors) extending to the Z-line (34 cm from the incisors). Woodbridge-colored mucosa was present. The maximum longitudinal extent of these esophageal mucosal changes was 5 cm in length. Mucosa was biopsied with a cold forceps for histology in a targeted manner at intervals of 1 cm in the lower third of the esophagus. One specimen bottle was sent to pathology. Verification of patient identification for the specimen was done. Estimated blood loss was minimal. One non-bleeding linear gastric ulcer with no stigmata of bleeding was found in the gastric body. The lesion was 6 mm in largest dimension. Biopsies were taken with a cold forceps for histology. Verification of patient identification for the specimen was done. Estimated blood loss was minimal. Biopsies were taken with a cold forceps for Helicobacter pylori testing. Verification of patient identification for the specimen was done. Estimated blood loss was minimal. No gross lesions were noted in the first portion of the duodenum. Impression: - Esophageal mucosal changes consistent with long-segment Mcfarland's esophagus. Biopsied. - Non-bleeding gastric ulcer with no stigmata of bleeding. Biopsied. - No gross lesions in the first portion of the duodenum. Recommendation: - Return patient to referring hospital for ongoing care. - Resume previous diet. - Continue present medications. - Await pathology results. - Repeat upper endoscopy in 3 months to check healing. - Return to GI office in 2 months. - Use Protonix (pantoprazole) 40 mg PO BID. Procedure Code(s): --- Professional --- 81170, Esophagogastroduodenoscopy, flexible, transoral; with biopsy, single or multiple CPT copyright 2021 [employer]. All rights reserved. The codes documented in this report are preliminary and upon track man review may be revised to meet current compliance requirements. Aniceto Cheng DO 07/14/2024 7:52:15 AM This report has been signed electronically. Number of Addenda: 0 Note Initiated On: 07/14/2024 7:31 AM
--- NOTE | 2024-07-14 07:53 | OP.CCLET_ITS ---
07/14/2024 Lucia Parmar Md Re : Upper GI endoscopy procedure for Latonya Perez Dear Ghulam This procedure was performed on Sunday, July 14, 2024. My impressions and recommendations are as follows: Impressions : - Esophageal mucosal changes consistent with long-segment Mcfarland's esophagus. Biopsied. - Non-bleeding gastric ulcer with no stigmata of bleeding. Biopsied. - No gross lesions in the first portion of the duodenum. Recommendations : - Return patient to referring hospital for ongoing care. - Resume previous diet. - Continue present medications. - Await pathology results. - Repeat upper endoscopy in 3 months to check healing. - Return to GI office in 2 months. - Use Protonix (pantoprazole) 40 mg PO BID. My findings are described in the full procedure note, which is enclosed. If I can be of further assistance, please feel free to contact me at . Sincerely, Aniceto Cheng, 07/14/2024 7:52:15 AM This report has been signed electronically.
--- NOTE | 2024-07-14 07:54 | PCM.POST.ANE ---
Anesthesia: Postop Eval I Current Vital Signs Temperature: 97.2 F Pulse Rate: 77 Blood Pressure: 90/57 Respiratory Rate: 14 Pulse Ox: 99 Oxygen Delivery Method: Room Air Assessment Airway patent: Yes Spontaneous unlabored respirations: Yes Mental status: Asleep nausea: No Vomiting: No Anesthesia Complication: No Fluid Hydration Crystalloid volume administer (ml): 20 Total IV fluid infused: 20 Progress Note Anesthesia document: Postop Eval 1 completed: Yes
--- NOTE | 2024-07-14 08:36 | PCM.POSTANE2 ---
Anesthesia Postop Eval I Sum Postop Eval Completion status Anesthesia document: Postop Eval 1 completed: Yes Anesthesia Postop Eval I Summary Anesthesia Postop Eval I Summary: Anesthesia Postop Eval I: Assessment Summary Airway patent Yes 07/14/24 07:58 [email or web address] Spontaneous unlabored Yes 07/14/24 07:58 [email or web address] respirations Mental status Asleep 07/14/24 07:58 [email or web address] nausea No 07/14/24 07:58 [email or web address] Vomiting No 07/14/24 07:58 [email or web address] Anesthesia Postop Eval I: Fluid Summary Crystalloid volume administer 20 07/14/24 07:58 [email or web address] (ml) Colloids volume administered ( ml) Blood Product volume administered (ml) Total IV fluid infused 20 07/14/24 07:58 [email or web address] Anesthesia Postop Eval I: Summary Notes Anesthesia Complication No 07/14/24 07:58 [email or web address] Anesthesia Complication Comment: Post-operative progress note Anesthesia: Postop Eval II Evaluation Mental status: Awake Pain Level: 0 nausea: No Vomiting: No Complications Anesthesia Complication: No
== END 2024-07-14 08:48 | disposition home or self-care (01) ==
LOC: EN 06:16 → AC 06:16
PROVIDERS: PCP Internal Medicine; Referring Provider Internal Medicine; Visit Provider Internal Medicine Gastroenterology
PROC: 0DJ08ZZ Inspection of Upper Intestinal Tract, Via Natural or Artificial Opening Endoscopic (ICD-10-PCS; CPT 43235; principal; 2024-07-14 06:55)
DX: K25.9 Gastric ulcer, unspecified as acute or chronic, without hemorrhage or perforation (principal); L89.154 Pressure ulcer of sacral region, stage 4; Q05.2 Lumbar spina bifida with hydrocephalus; G40.909 Epilepsy, unspecified, not intractable, without status epilepticus; R53.81 Other malaise; D50.9 Iron deficiency anemia, unspecified; E87.6 Hypokalemia; K52.9 Noninfective gastroenteritis and colitis, unspecified
CPT/HCPCS: 43239; 88305; 88312; 88342; A4216; J2405

== ENCOUNTER → 2024-07-18 | Outpatient (CLI) | payer MEDICARE, MEDICAID, SELFPAY ==
--- NOTE | 2024-07-18 12:01 | CT_ITS ---
PROCEDURE: ABDOMEN/PELVIS W IV CONT ONLY REASON FOR EXAM: Pain TECHNIQUE: Abdomen and pelvis CT with intravenous contrast. COMPARISON: 2022 FINDINGS: Lung bases: Clear Liver: Unremarkable. Gallbladder: Unremarkable. Spleen: Unremarkable. Pancreas: Unremarkable. Adrenals: Unremarkable. Kidneys: Chronic atrophic changes bilaterally. No focal mass apart from simple cystic change. Bladder: Distended with foci of air which is nonspecific. Correlate for recent instrumentation or inflammatory process Reproductive Organs: Unremarkable. Bowel: Midline ostomy. Catheter seen posteriorly adjacent to the gluteal folds with a low-attenuation peripherally enhancing 5.6 x 2.4 cm collection in the right parasagittal gluteal region with surrounding inflammatory change concerning for subcutaneous soft tissue abscess posteriorly. Lymph nodes: No suspicious lymph node enlargement. Vasculature: Major vascular structures are unremarkable. Peritoneum / Retroperitoneum: No ascites. No free air. Bones: Unremarkable. CT/Abdomen/Pelvis W IV Cont ONLY IMPRESSION: Catheter seen posteriorly adjacent to the gluteal folds with a low-attenuation peripherally enhancing 5.6 x 2.4 cm collection in the right parasagittal gluteal region with surrounding inflammatory change conc erning for subcutaneous soft tissue abscess posteriorly. Bladder is distended with foci of air which is nonspecific. Correlate for recen t instrumentation or inflammatory process One or more dose reduction techniques were used (e.g., Automated exposure contr ol, adjustment of the mA and/or kV according to patient size, use of iterative reconstruction technique). Reading Location: [facility]
== END | disposition home or self-care (01) ==
LOC: CT 11:40
PROVIDERS: PCP Internal Medicine; Referring Provider Family Medicine Geriatric Medicine; Visit Provider Family Medicine Geriatric Medicine
DX: R10.9 Unspecified abdominal pain (principal)
CPT/HCPCS: 74177; Q9967; A4216

== ENCOUNTER 2024-08-09 13:03 | Outpatient (RCR) | payer MEDICARE, MEDICAID, SELFPAY ==
[2024-08-09 13:12] VITALS: BP 117/70; PULSE 89; RESP 18; TEMP 37
--- NOTE | 2024-08-10 07:05 | PN.PCM_ITS ---
History of Present Illness Date of Service: 08/09/24 Chief Complaint: Recurrent left sacral pressure sore, Stage IV. History of Wound: History of Wound: 27 year old man with a history of Spina bifida presented to the Wound Center with a recurrent left sacral pressure sore that started a couple of months ago according to the patient. He bumped his buttocks sometime during the summer and did not tell his mother until it was infected and draining. He initially went to [facility] in April,, and was hospitalized 3 days for IV antibiotics with Meropenem and Clindamycin. Also received a dose of Vancomycin in the ED and had a skin rash. CT showed a rim-enhancing perirectal fluid collection measuring 3.9 x 6.2 cm, compatible with an abscess. He was transferred to [facility] where an I&D was performed. He has a history of Spina bifida which he has had bilateral hip surgery for hip dysplasia at age 8 and another surgery on legs bilaterally to help him wear braces to stand, which he never has been able to do. He had a sacral muscle flap at age 14 at [facility] for an ulcer. Also has a history of hydrocephalous with a shunt. Surgery 07/16/22 - Excision recurrent left sacral pressure sore, Stage IV, with partial ostectomy for osteomyelitis. Wound Care - [facility]. Operative tissue and bone cultures from 07/16/22 were positive for Enterobacter cloacae complex. He was treated with Levaquin. Pathology from 07/16/22 showed chronic reparative and reactive change. No evidence of acute osteomyelitis. Recent wound culture from 05/27/23 showed MDR Acinetobacter baumannii, Enterococcus faecalis, and Methicillin resistant Staphylococcus haemolyticus. Infectious Diseases has been consulted to assist with antibiotic management (PO vs IV). Prealbumin from 07/17/22 was 14.6. Encourage nutritional supplementation with protein to help the healing process. CT Abdomen/Pelvis from 01/29/23 - There is sclerosis of the underlying sacrum suggestive of possible chronic osteomyelitis. There is superior migration of the proximal left femur. There is deformity of the proximal left femur with the old fracture of the left femoral head. Today denies fever. His appetite is ok. Progress of Wound: 09 February 2024: Patient here for follow-up. He is here with his mother, who is his primary caregiver. Latonya was a patient of a previous member of our practice , Dr. Arechiga , who performed an excision of the patient's sacral pressure ulcer in June 2022. The patient has been doing wound care ever since at the wound care center. They are currently using the wound VAC. They have had some granulation tissue at the base of the wound but there is been limited progress overall. Latonya and his mother are frustrated and would like to potentially change the wound care as the VAC is leaking often. The patient has diverting ostomy, but there is still some mucus that comes from the anus that sometimes causes it to leak. Of note he was treated for osteomyelitis in the past from positive bone cultures, but the wound has not been biopsied. He also has a history of a pressure sore reconstruction during adolescence at [facility] which his mother reports went quite well. 24 FEB 2024: Patient presents today for evaluation of his wound with his mother present. She reports that there struggling to do wound care at home as they are living in a trailer (just the two of them) with limited resources. I talked her extensively about reconstruction today and I talked to him extensively about reconstruction and the process postoperatively. They had a reconstruction when he was an adolescent of a sacral wound that was successful at [facility] with what looks like a V to Y advancement flap and another V-Y (examined previous scars). He has an ostomy. His anus does make a small amount of mucus, but they are able to keep this of the wound pretty well. 01 Mar 2024: Labs reviewed with the patient. The patient has not seen his primary care physician in a while and she is on maternity leave. He is a patient of [facility] and is seeing Dakota Davila next week. I will talk to Dakota Davila personally in the meantime about my concerns about Latonya's labs, including his nutrition and his MCV (which was 66). His hemoglobin was 9.5 and I am concerned about a iron deficiency anemia. I think before reconstruction we need to address this. Latonya is also meeting with the holistic nutritionist today to discuss increased protein intake. His albumin is 2.8 based on last week's labs and his prealbumin is 16. 30 Feb 2024: Doing alright today. No new problems. Patient here today with his mother comes all of his appointment. I talked to them about their appointment with Dakota Davila, who is the primary care provider. They met with him and he is continuing the iron supplementation for the anemia and working with him on his diet to improve his overall protein intake, and decrease added sugar intake. 29 Mar 2024: Here today for evaluation of wound. I've been talking to Dakota Davila (PA at internal medicine practice) about the patient's anemia. They're continuing to treat with iron. We will plan for repeat labs now in preparation for surgery. Patient has been compliant with medications and compliant with offloading per patient and mother's report. 12 Apr 2024: Doing well overall with dressing changes. We are working on coordinating the MRI for pre-operative planning. 03 May 2024: Doing dressing changes. Has a head xray ordered to look at Shunt, then plan is for MRI for surgical planning. Subjective Subjective 06 JUL 2024: Surgery/Procedure Performed: 1) Surgical preparation/excision of sacral wound with skin flap closure (CPT: 74968) 2) Use of fluorescence angiography for assessment of flap (following dissection) intra-operatively (using SPY machine), (CPT: 28550) CURRENT ENCOUNTER, 10 AUG 2024: Doing well overall. Here for evaluation at the wound care center for the first time since reconstruction. There is a small wound at the donor site on the right lateral gluteal region that is being managed with WTD dressings. No fevers chills or drainage. He's been following with ID for antibiotics. Objective Data Objective Data Vital Signs: Vital Signs Temp Pulse Resp BP 98.6 F 89 18 117/70 08/09/24 13:12 08/09/24 13:12 08/09/24 13:12 08/09/24 13:12 Charges/Coding Procedures Integumentary [id number]: [id number] Global Visit Physical Exam Narrative Sacral flap with one area of opening near the donor site. No drainage currently from this area. granulating well. Does not tunnel. 2 x 1.9 and 1.4 cm deep Flap is healing nicely and is nice pink color. NO SIGNS OF INFECTION. Const alert General Appearance: cooperative HEENT normocephalic Eyes General Eye: normal appearance of both eyes Resp normal respiratory effort Effort and Inspection: able to speak in complete sentences Extremity normal capillary refill Debridement Note Debridement Note Wound debrided: R gluteal wound Laterality: Right Type of Debridement: Excisional debridement Anesthesia Used: 4% Lidocaine Solution Depth: in the subcutaneous layer Percentage of wound debrided: 100 Instrument Used: 7mm curette Severity: Fat Layer Exposed Amount of bleeding with debridement: Mild Bleeding Controlled with: Compression and gauze Patient tolerated procedure: Patient tolerated procedure well Post-Debridement Measurements and Additional Note: Post-Debridement Measurements/Treatment - Nurse 1 - General Ulcer Assessment Start: 08/09/24 13:12 Freq: Status: Active Protocol: ANDREW Activity Type Activity Date Activity User E-sign Co-sign Detail Recorded Client Recorded Date Recorded By Document 08/09/24 13:12 DL [id number] 08/09/24 13:25 DL 08/09/24 13:12 WC - Today's Visit Information Type of service Initial Visit Arrival Mode Wheelchair Transfer Assistance None Patient Identification Verified (Name & Yes ) Patient Requires Transmission-Based No Precautions Vital Signs Temperature (97.8 F-99.1 F) 98.6 F Temperature Source Temporal Pulse Rate (60-100) 89 Pulse Location Monitor Respiratory Rate (12-18) 18 Respiratory rate source Observation Blood Pressure (90/60-120/80) 117/70 Blood Pressure Mean (mm Hg) 85 Source Monitor History Since Last Visit- (Skip if this is Patient's initial visit) Have you changed medications since your No last visit? Any new allergies or adverse reactions No Had a fall/change in ADL's that may No increase risk of falls Signs or symptoms of abuse and/or No neglect since last visit Have you been in the hospital since your Yes last visit? Has dressing in place as prescribed Yes Has compression in place as prescribed N/A Has offloadiing in place as prescribed Yes Experienced any changes in pain level or No management Pain Scale: 0-10 Numeric Is Patient Pain Free? Yes - Nurse 1 - General Ulcer Measurement Start: 08/09/24 13:12 Freq: Status: Active Protocol: Activity Type Activity Date Activity User E-sign Co-sign Detail Recorded Client Recorded Date Recorded By Document 08/09/24 13:12 DL [id number] 08/09/24 13:25 DL 08/09/24 13:12 Wound Center Nurse 1 #5 R Buttocks -Current Size (cm) - Length 2.5 -Current Size (cm) - Width 1.6 -Current Size (cm) - Depth 1.7 -Total Square Cm 4.00 -Photo Taken Yes -Exudate Amt Medium -Exudate Type Serosanguineous -Wound Margin Distinct, Outline Attached -Granulation Amt Large (67-100%) -Granulation Quality Red -Necrosis Amt None Present (0 %) -Structure Exposed N/A -Texture (Meliza-wound Skin Appearance) Scarring -Moisture (Meliza-wound Skin Appearance) No Abnormality -Color (Meliza-wound Skin Appearance) No Abnormality -Temperature (Meliza-wound Skin No Abnormality Appearance) (Pt Warm) -Tenderness on Palpation (Meliza-wound No Skin Appearance) -Ulcer Cleansing Soap and Water -Foul Odor after Cleansing No -Anesthetic Used 5% Lidocaine Gel WC - Nurse 2 - General Ulcer CM Notes Start: 08/09/24 13:12 Freq: Status: Active Protocol: Activity Type Activity Date Activity User E-sign Co-sign Detail Recorded Client Recorded Date Recorded By Document 08/09/24 13:55 BILLY [id number] 08/09/24 13:58 BILLY 08/09/24 13:55 Wound Center Nurse 2 #1 sacrum -Correct Patient Yes -Correct Side, Site, Position No -Correct Procedure No -Procedure Performed No -Post Debridement (cm) - Length 0 -Post Debridement (cm) - Width 0 -Post Debridement (cm) - Depth 0 -Total Square (Post) (cm) 0 -Area of Debridement (cm) - Length 0 -Area of Debridement (cm) - Width 0 -Total Square (Area) (cm) 0 -Wound/Ulcer Outcome Healed- Flap #5 R Buttocks -Time 13:57 -Correct Patient Yes -Correct Side, Site, Position Yes -Correct Procedure Yes -Procedure Performed Yes -Type of Procedure Debridement -Clinical Debridement Subcutaneous -Tissue Removed Subcutaneous -Post Debridement (cm) - Length 2.8 -Post Debridement (cm) - Width 1.9 -Post Debridement (cm) - Depth 1.4 -Total Square (Post) (cm) 5.32 -Area of Debridement (cm) - Length 2.8 -Area of Debridement (cm) - Width 1.9 -Total Square (Area) (cm) 5.32 -Tunneling No -Undermining/Tunneling No -Circular Undermining No -Wound/Ulcer Outcome Not Healed -Ulcer Cleansing Rinsed/ Irrigated with Saline -Foul Odor after Cleansing No -Bioengineered Tissue No -Bleeding Controlled with Pressure -Treatment Response Procedure Tolerated Well -Offloading No -Pressure Reduction Wheelchair cushion -Debridement - Subq, 1st 20sq cm Yes Pain Scale: 0-10 Numeric Is Patient Pain Free? Yes - Nurse 3 - General Ulcer D/C NN Start: 08/09/24 13:12 Freq: Status: Active Protocol: Activity Type Activity Date Activity User E-sign Co-sign Detail Recorded Client Recorded Date Recorded By Document 08/09/24 14:08 DL [id number] 08/09/24 14:13 DL 08/09/24 14:08 Wound Care Center Nurse 3 #5 R Buttocks -Ulcer Cleansing Rinsed/ Irrigated with Saline -Foul Odor after Cleansing No -Primary Dressing Applied Hysept -Other Dressing dakins -Primary Dressing Covered/Secured with Dry Gauze, Secured with Tape -Other Covering ABD -Hysept 1 Treatment Response Procedure Tolerated Well Pain Scale: 0-10 Numeric Is Patient Pain Free? Yes - Visit Discharge Discharge Condition Stable Ambulatory Status Wheelchair Transportation Private Auto Facility Type Home Health Orders Sent Yes Assessment/Plan Assessment/Plan (1) Stage IV pressure ulcer of sacral region: CODE(S): L89.154 - Pressure ulcer of sacral region, stage 4 PLAN: Reconstructed on 06 Jul 2024 Small persistent wound at donor site, healing. Ordering three times per week wound VAC to promote granulation in this region Discussed sitting protocol. OK to start sitting this week 15 minutes per day three times per day. Re-asses next week in clinic
--- NOTE | 2024-08-10 09:56 | WC ---
PHOTO 08/09/24 POST OP
--- NOTE | 2024-08-10 10:10 | WC ---
PHOTO 08/09/24 POST OP
== END 2024-08-13 23:59 | disposition home or self-care (01) ==
LOC: WC 13:03
PROVIDERS: PCP Internal Medicine; Referring Provider Surgery Plastic and Reconstructive Surgery; Visit Provider Surgery Plastic and Reconstructive Surgery
DX: L89.154 Pressure ulcer of sacral region, stage 4 (principal); Q05.2 Lumbar spina bifida with hydrocephalus; D64.9 Anemia, unspecified
CPT/HCPCS: 11042; 99214; G0463

== ENCOUNTER 2024-08-30 14:15 | Outpatient (RCR) | payer MEDICARE, MEDICAID, SELFPAY ==
[2024-08-14 02:45] VITALS: BP 117/70; PULSE 89; RESP 18; TEMP 37
[2024-08-16 13:39] VITALS: BP 126/69; PULSE 96; RESP 18; TEMP 36.6
--- NOTE | 2024-08-16 18:07 | PCM.WC.PN ---
History of Present Illness Date of Service: 08/16/24 Chief Complaint: Recurrent left sacral pressure sore, Stage IV. History of Wound: History of Wound: 27 year old man with a history of Spina bifida presented to the Wound Center with a recurrent left sacral pressure sore that started a couple of months ago according to the patient. He bumped his buttocks sometime during the summer and did not tell his mother until it was infected and draining. He initially went to [facility] in April,, and was hospitalized 3 days for IV antibiotics with Meropenem and Clindamycin. Also received a dose of Vancomycin in the ED and had a skin rash. CT showed a rim-enhancing perirectal fluid collection measuring 3.9 x 6.2 cm, compatible with an abscess. He was transferred to [facility] where an I&D was performed. He has a history of Spina bifida which he has had bilateral hip surgery for hip dysplasia at age 8 and another surgery on legs bilaterally to help him wear braces to stand, which he never has been able to do. He had a sacral muscle flap at age 14 at [facility] for an ulcer. Also has a history of hydrocephalous with a shunt. Surgery 07/16/22 - Excision recurrent left sacral pressure sore, Stage IV, with partial ostectomy for osteomyelitis. Wound Care - [facility]. Operative tissue and bone cultures from 07/16/22 were positive for Enterobacter cloacae complex. He was treated with Levaquin. Pathology from 07/16/22 showed chronic reparative and reactive change. No evidence of acute osteomyelitis. Recent wound culture from 05/27/23 showed MDR Acinetobacter baumannii, Enterococcus faecalis, and Methicillin resistant Staphylococcus haemolyticus. Infectious Diseases has been consulted to assist with antibiotic management (PO vs IV). Prealbumin from 07/17/22 was 14.6. Encourage nutritional supplementation with protein to help the healing process. CT Abdomen/Pelvis from 01/29/23 - There is sclerosis of the underlying sacrum suggestive of possible chronic osteomyelitis. There is superior migration of the proximal left femur. There is deformity of the proximal left femur with the old fracture of the left femoral head. Today denies fever. His appetite is ok. Progress of Wound: 09 February 2024: Patient here for follow-up. He is here with his mother, who is his primary caregiver. aLtonya was a patient of a previous member of our practice , Dr. Arechiga , who performed an excision of the patient's sacral pressure ulcer in June 2022. The patient has been doing wound care ever since at the wound care center. They are currently using the wound VAC. They have had some granulation tissue at the base of the wound but there is been limited progress overall. Latonya and his mother are frustrated and would like to potentially change the wound care as the VAC is leaking often. The patient has diverting ostomy, but there is still some mucus that comes from the anus that sometimes causes it to leak. Of note he was treated for osteomyelitis in the past from positive bone cultures, but the wound has not been biopsied. He also has a history of a pressure sore reconstruction during adolescence at [facility] which his mother reports went quite well. 24 FEB 2024: Patient presents today for evaluation of his wound with his mother present. She reports that there struggling to do wound care at home as they are living in a trailer (just the two of them) with limited resources. I talked her extensively about reconstruction today and I talked to him extensively about reconstruction and the process postoperatively. They had a reconstruction when he was an adolescent of a sacral wound that was successful at [facility] with what looks like a V to Y advancement flap and another V-Y (examined previous scars). He has an ostomy. His anus does make a small amount of mucus, but they are able to keep this of the wound pretty well. 01 Mar 2024: Labs reviewed with the patient. The patient has not seen his primary care physician in a while and she is on maternity leave. He is a patient of [facility] and is seeing Dakota Davila next week. I will talk to Dakota Davila personally in the meantime about my concerns about Latonya's labs, including his nutrition and his MCV (which was 66). His hemoglobin was 9.5 and I am concerned about a iron deficiency anemia. I think before reconstruction we need to address this. Latonya is also meeting with the nutritional services cook today to discuss increased protein intake. His albumin is 2.8 based on last week's labs and his prealbumin is 16. 30 Feb 2024: Doing alright today. No new problems. Patient here today with his mother comes all of his appointment. I talked to them about their appointment with Dakota Davila, who is the primary care provider. They met with him and he is continuing the iron supplementation for the anemia and working with him on his diet to improve his overall protein intake, and decrease added sugar intake. 29 Mar 2024: Here today for evaluation of wound. I've been talking to Dakota Davila (PA at internal medicine practice) about the patient's anemia. They're continuing to treat with iron. We will plan for repeat labs now in preparation for surgery. Patient has been compliant with medications and compliant with offloading per patient and mother's report. 12 Apr 2024: Doing well overall with dressing changes. We are working on coordinating the MRI for pre-operative planning. 03 May 2024: Doing dressing changes. Has a head xray ordered to look at Shunt, then plan is for MRI for surgical planning. Subjective Subjective 06 JUL 2024: Surgery/Procedure Performed: 1) Surgical preparation/excision of sacral wound with skin flap closure (CPT: 19723) 2) Use of fluorescence angiography for assessment of flap (following dissection) intra-operatively (using SPY machine), (CPT: 73964) 10 AUG 2024: Doing well overall. Here for evaluation at the wound care center for the first time since reconstruction. There is a small wound at the donor site on the right lateral gluteal region that is being managed with WTD dressings. No fevers chills or drainage. He's been following with ID for antibiotics. CURRENT ENCOUNTER, 16 August 2024: Still does not have VAC. Compliant with offloading and with dressing changes to the donor site wound. Overall doing well. Objective Data Objective Data Vital Signs: Vital Signs Temp Pulse Resp BP 97.8 F 96 18 126/69 H 08/16/24 13:39 08/16/24 13:39 08/16/24 13:39 08/16/24 13:39 Charges/Coding Procedures Integumentary [id number]: [id number] Global Visit Physical Exam Narrative Sacral flap with one area of opening near the donor site. No drainage currently from this area. granulating well. Does not tunnel. 2 x 1.5 and 1 cm deep Flap is healing nicely and is nice pink color. NO SIGNS OF INFECTION. Const alert General Appearance: cooperative HEENT normocephalic Eyes General Eye: normal appearance of both eyes Resp normal respiratory effort Effort and Inspection: able to speak in complete sentences Extremity normal capillary refill Debridement Note Debridement Note Wound debrided: Right gluteal wound Laterality: Right Wound Grade/Stage: 3 Type of Debridement: Excisional debridement Anesthesia Used: 4% Lidocaine Solution Depth: in the subcutaneous layer Percentage of wound debrided: 100 Instrument Used: 7mm curette Severity: Fat Layer Exposed Amount of bleeding with debridement: Mild Bleeding Controlled with: Compression and gauze Patient tolerated procedure: Patient tolerated procedure well Post-Debridement Measurements and Additional Note: Post-Debridement Measurements/Treatment - Nurse 1 - General Ulcer Assessment Start: 08/16/24 13:39 Freq: Status: Active Protocol: ANDREW Activity Type Activity Date Activity User E-sign Co-sign Detail Recorded Client Recorded Date Recorded By Document 08/16/24 13:39 DL [id number] 08/16/24 13:46 DL 08/16/24 13:39 WC - Today's Visit Information Type of service Follow-up Visit (Physician/ENVIRONMENTAL SUSTAINABILITY MANAGER ) Arrival Mode Wheelchair Transfer Assistance None Patient Identification Verified (Name & Yes ) Patient Requires Transmission-Based No Precautions Safety Precautions NA Vital Signs Temperature (97.8 F-99.1 F) 97.8 F Temperature Source Temporal Pulse Rate (60-100) 96 Pulse Location Monitor Respiratory Rate (12-18) 18 Respiratory rate source Observation Blood Pressure (90/60-120/80) 126/69 H Blood Pressure Mean (mm Hg) 88 Source Monitor History Since Last Visit- (Skip if this is Patient's initial visit) Have you changed medications since your No last visit? Any new allergies or adverse reactions No Had a fall/change in ADL's that may No increase risk of falls Signs or symptoms of abuse and/or No neglect since last visit Have you been in the hospital since your No last visit? Has dressing in place as prescribed Yes Has compression in place as prescribed N/A Has offloadiing in place as prescribed Yes Experienced any changes in pain level or No management Pain Scale: 0-10 Numeric Is Patient Pain Free? Yes - Nurse 1 - General Ulcer Measurement Start: 08/16/24 13:39 Freq: Status: Active Protocol: Activity Type Activity Date Activity User E-sign Co-sign Detail Recorded Client Recorded Date Recorded By Document 08/16/24 13:39 DL [id number] 08/16/24 13:46 DL 08/16/24 13:39 Wound Center Nurse 1 #5 R Buttocks -Current Size (cm) - Length 1.8 -Current Size (cm) - Width 1.3 -Current Size (cm) - Depth 1.1 -Total Square Cm 2.34 -Photo Taken Yes -Exudate Amt Medium -Exudate Type Serosanguineous -Wound Margin Distinct, Outline Attached -Granulation Amt Large (67-100%) -Granulation Quality [place] -Necrosis Amt None Present (0 %) -Necrotic Tissue Type Adherent Slough -Structure Exposed N/A -Texture (Meliza-wound Skin Appearance) Scarring -Moisture (Meliza-wound Skin Appearance) No Abnormality -Color (Meliza-wound Skin Appearance) No Abnormality -Temperature (Meliza-wound Skin No Abnormality Appearance) (Pt Warm) -Tenderness on Palpation (Meliza-wound No Skin Appearance) -Ulcer Cleansing Soap and Water -Foul Odor after Cleansing No -Anesthetic Used 5% Lidocaine Gel WC - Nurse 2 - General Ulcer CM Notes Start: 08/16/24 13:39 Freq: Status: Active Protocol: Activity Type Activity Date Activity User E-sign Co-sign Detail Recorded Client Recorded Date Recorded By Document 08/16/24 14:37 BILLY [id number] 08/16/24 14:39 BILLY 08/16/24 14:37 Wound Center Nurse 2 -Time 14:37 -Correct Patient Yes -Correct Side, Site, Position Yes -Correct Procedure Yes -Procedure Performed Yes -Type of Procedure Debridement -Clinical Debridement Subcutaneous -Tissue Removed Subcutaneous -Post Debridement (cm) - Length 2 -Post Debridement (cm) - Width 1.5 -Post Debridement (cm) - Depth 1 -Total Square (Post) (cm) 3.0 -Area of Debridement (cm) - Length 2 -Area of Debridement (cm) - Width 1.5 -Total Square (Area) (cm) 3.0 -Tunneling No -Undermining/Tunneling No -Circular Undermining No -Wound/Ulcer Outcome Not Healed -Ulcer Cleansing Rinsed/ Irrigated with Saline -Foul Odor after Cleansing No -Bioengineered Tissue No -Bleeding Controlled with Pressure -Treatment Response Procedure Tolerated Well -Offloading No -Pressure Reduction Wheelchair cushion -Debridement - Subq, 1st 20sq cm Yes Pain Scale: 0-10 Numeric Is Patient Pain Free? Yes WC - Nurse 3 - General Ulcer D/C NN Start: 08/16/24 13:39 Freq: Status: Active Protocol: Activity Type Activity Date Activity User E-sign Co-sign Detail Recorded Client Recorded Date Recorded By Document 08/16/24 14:51 DL [id number] 08/16/24 14:52 DL 08/16/24 14:51 Wound Care Center Nurse 3 #5 R Buttocks -Ulcer Cleansing Rinsed/ Irrigated with Saline -Foul Odor after Cleansing No -Other Dressing dakins -Primary Dressing Covered/Secured with Dry Gauze, Secured with Tape -Other Covering ABD Treatment Response Procedure Tolerated Well Pain Scale: 0-10 Numeric Is Patient Pain Free? Yes WC - Visit Discharge Discharge Condition Stable Ambulatory Status Wheelchair Transportation Private Auto Assessment/Plan Assessment/Plan (1) Stage IV pressure ulcer of sacral region: CODE(S): L89.154 - Pressure ulcer of sacral region, stage 4 PLAN: Reconstructed on 06 Jul 2024 Small persistent wound at donor site, healing. Ordering three times per week wound VAC to promote granulation in this region Discussed sitting protocol. OK to start sitting this week 30 minutes per day three times per day. Re-asses next week in clinic
--- NOTE | 2024-08-18 14:04 | WC ---
PHOTO 08/16/24 RIGHT BUTTOCKS
--- NOTE | 2024-08-18 14:08 | WC ---
PHOTO 08/16/24 RIGHT BUTTOCKS
[2024-08-30 14:00] VITALS: BP 117/63; PULSE 84; RESP 18; TEMP 36.6
--- NOTE | 2024-08-30 15:34 | PN.PCM_ITS ---
History of Present Illness Date of Service: 08/30/24 Chief Complaint: Recurrent left sacral pressure sore, Stage IV. History of Wound: History of Wound: 27 year old man with a history of Spina bifida presented to the Wound Center with a recurrent left sacral pressure sore that started a couple of months ago according to the patient. He bumped his buttocks sometime during the summer and did not tell his mother until it was infected and draining. He initially went to [facility] in April,, and was hospitalized 3 days for IV antibiotics with Meropenem and Clindamycin. Also received a dose of Vancomycin in the ED and had a skin rash. CT showed a rim-enhancing perirectal fluid collection measuring 3.9 x 6.2 cm, compatible with an abscess. He was transferred to [facility] where an I&D was performed. He has a history of Spina bifida which he has had bilateral hip surgery for hip dysplasia at age 8 and another surgery on legs bilaterally to help him wear braces to stand, which he never has been able to do. He had a sacral muscle flap at age 14 at [facility] for an ulcer. Also has a history of hydrocephalous with a shunt. Surgery 07/16/22 - Excision recurrent left sacral pressure sore, Stage IV, with partial ostectomy for osteomyelitis. Wound Care - [facility]. Operative tissue and bone cultures from 07/16/22 were positive for Enterobacter cloacae complex. He was treated with Levaquin. Pathology from 07/16/22 showed chronic reparative and reactive change. No evidence of acute osteomyelitis. Recent wound culture from 05/27/23 showed MDR Acinetobacter baumannii, Enterococcus faecalis, and Methicillin resistant Staphylococcus haemolyticus. Infectious Diseases has been consulted to assist with antibiotic management (PO vs IV). Prealbumin from 07/17/22 was 14.6. Encourage nutritional supplementation with protein to help the healing process. CT Abdomen/Pelvis from 01/29/23 - There is sclerosis of the underlying sacrum suggestive of possible chronic osteomyelitis. There is superior migration of the proximal left femur. There is deformity of the proximal left femur with the old fracture of the left femoral head. Today denies fever. His appetite is ok. Progress of Wound: 09 February 2024: Patient here for follow-up. He is here with his mother, who is his primary caregiver. Latonya was a patient of a previous member of our practice , Dr. Arechiga , who performed an excision of the patient's sacral pressure ulcer in June 2022. The patient has been doing wound care ever since at the wound care center. They are currently using the wound VAC. They have had some granulation tissue at the base of the wound but there is been limited progress overall. Latonya and his mother are frustrated and would like to potentially change the wound care as the VAC is leaking often. The patient has diverting ostomy, but there is still some mucus that comes from the anus that sometimes causes it to leak. Of note he was treated for osteomyelitis in the past from positive bone cultures, but the wound has not been biopsied. He also has a history of a pressure sore reconstruction during adolescence at [facility] which his mother reports went quite well. 24 FEB 2024: Patient presents today for evaluation of his wound with his mother present. She reports that there struggling to do wound care at home as they are living in a trailer (just the two of them) with limited resources. I talked her extensively about reconstruction today and I talked to him extensively about reconstruction and the process postoperatively. They had a reconstruction when he was an adolescent of a sacral wound that was successful at [facility] with what looks like a V to Y advancement flap and another V-Y (examined previous scars). He has an ostomy. His anus does make a small amount of mucus, but they are able to keep this of the wound pretty well. 01 Mar 2024: Labs reviewed with the patient. The patient has not seen his primary care physician in a while and she is on maternity leave. He is a patient of [facility] and is seeing Dakota Davila next week. I will talk to Dakota Davila personally in the meantime about my concerns about Latonya's labs, including his nutrition and his MCV (which was 66). His hemoglobin was 9.5 and I am concerned about a iron deficiency anemia. I think before reconstruction we need to address this. Latonya is also meeting with the home energy consultant supervisor today to discuss increased protein intake. His albumin is 2.8 based on last week's labs and his prealbumin is 16. 30 Feb 2024: Doing alright today. No new problems. Patient here today with his mother comes all of his appointment. I talked to them about their appointment with Dakota Davila, who is the primary care provider. They met with him and he is continuing the iron supplementation for the anemia and working with him on his diet to improve his overall protein intake, and decrease added sugar intake. 29 Mar 2024: Here today for evaluation of wound. I've been talking to Dakota Davila (PA at internal medicine practice) about the patient's anemia. They're continuing to treat with iron. We will plan for repeat labs now in preparation for surgery. Patient has been compliant with medications and compliant with offloading per patient and mother's report. 12 Apr 2024: Doing well overall with dressing changes. We are working on coordinating the MRI for pre-operative planning. 03 May 2024: Doing dressing changes. Has a head xray ordered to look at Shunt, then plan is for MRI for surgical planning. Subjective Subjective 06 JUL 2024: Surgery/Procedure Performed: 1) Surgical preparation/excision of sacral wound with skin flap closure (CPT: 74242) 2) Use of fluorescence angiography for assessment of flap (following dissection) intra-operatively (using SPY machine), (CPT: 10147) 10 AUG 2024: Doing well overall. Here for evaluation at the wound care center for the first time since reconstruction. There is a small wound at the donor site on the right lateral gluteal region that is being managed with WTD dressings. No fevers chills or drainage. He's been following with ID for antibiotics. 16 August 2024: Still does not have VAC. Compliant with offloading and with dressing changes to the donor site wound. Overall doing well. CURRENT ENCOUNTER, 30 August 2024: Doing well. He was unable to attend appointment last week. Doing well overall. Mother reports wound is getting smaller. Objective Data Objective Data Vital Signs: Vital Signs Temp Pulse Resp BP 97.8 F 84 18 117/63 08/30/24 14:00 08/30/24 14:00 08/30/24 14:00 08/30/24 14:00 Charges/Coding Procedures Integumentary [id number]: [id number] Global Visit Physical Exam Narrative Sacral flap with one area of opening near the donor site. No drainage currently from this area. granulating well. Does not tunnel. 2 x 1 and 0.5 cm deep Flap is healing nicely and is nice pink color. NO SIGNS OF INFECTION. Const alert General Appearance: cooperative HEENT normocephalic Eyes General Eye: normal appearance of both eyes Resp normal respiratory effort Effort and Inspection: able to speak in complete sentences Extremity normal capillary refill Debridement Note Debridement Note Wound debrided: Right gluteal wound Laterality: Right Wound Grade/Stage: 3 Type of Debridement: Excisional debridement Anesthesia Used: 4% Lidocaine Solution Depth: Down to and including healthy tissue and in the subcutaneous layer Percentage of wound debrided: 100 Instrument Used: 7mm curette Severity: Fat Layer Exposed Amount of bleeding with debridement: Moderate Bleeding Controlled with: Compression and gauze Patient tolerated procedure: Patient tolerated procedure well Post-Debridement Measurements and Additional Note: Post-Debridement Measurements/Treatment - Nurse 1 - General Ulcer Assessment Start: 08/16/24 13:39 Freq: Status: Active Protocol: ANDREW Activity Type Activity Date Activity User E-sign Co-sign Detail Recorded Client Recorded Date Recorded By Document 08/16/24 13:39 DL [id number] 08/16/24 13:46 DL Document 08/23/24 10:37 KW [id number] 08/23/24 10:46 KW Undo 08/23/24 10:37 KW wrong pt [id number] 08/23/24 10:53 KW Document 08/30/24 14:00 DL [id number] 08/30/24 14:07 DL 08/16/24 08/30/24 13:39 14:00 - Today's Visit Information Type of service Follow-up Visit Follow-up Visit (Physician/CONSUMER LOAN MANAGER (Physician/CONSUMER LOAN MANAGER ) ) Arrival Mode Wheelchair Wheelchair Transfer Assistance None None Patient Identification Verified (Name & Yes Yes ) Patient Requires Transmission-Based No No Precautions Safety Precautions NA Vital Signs Temperature (97.8 F-99.1 F) 97.8 F 97.8 F Temperature Source Temporal Temporal Pulse Rate (60-100) 96 84 Pulse Location Monitor Monitor Respiratory Rate (12-18) 18 18 Respiratory rate source Observation Observation Blood Pressure (90/60-120/80) 126/69 H 117/63 Blood Pressure Mean (mm Hg) 88 81 Source Monitor Monitor History Since Last Visit- (Skip if this is Patient's initial visit) Have you changed medications since your No No last visit? Any new allergies or adverse reactions No No Had a fall/change in ADL's that may No No increase risk of falls Signs or symptoms of abuse and/or No No neglect since last visit Have you been in the hospital since your No No last visit? Has dressing in place as prescribed Yes Yes Has compression in place as prescribed N/A N/A Has offloadiing in place as prescribed Yes Yes Experienced any changes in pain level or No No management Pain Scale: 0-10 Numeric Is Patient Pain Free? Yes Yes WC - Nurse 1 - General Ulcer Measurement Start: 08/16/24 13:39 Freq: Status: Active Protocol: Activity Type Activity Date Activity User E-sign Co-sign Detail Recorded Client Recorded Date Recorded By Document 08/16/24 13:39 DL [id number] 08/16/24 13:46 DL Document 08/23/24 10:37 KW [id number] 08/23/24 10:46 KW Undo 08/23/24 10:37 KW wrong pt [id number] 08/23/24 10:53 KW Document 08/30/24 14:00 DL [id number] 08/30/24 14:07 DL 08/16/24 08/30/24 13:39 14:00 Wound Center Nurse 1 #5 R Buttocks -Current Size (cm) - Length 1.8 1.5 -Current Size (cm) - Width 1.3 0.8 -Current Size (cm) - Depth 1.1 0.1 -Total Square Cm 2.34 1.20 -Photo Taken Yes -Exudate Amt Medium Medium -Exudate Type Serosanguineous Serosanguineous -Wound Margin Distinct, Distinct, Outline Outline Attached Attached -Granulation Amt Large (67-100%) Small (1-33%) -Granulation Quality Pale,[place] -Necrosis Amt None Present (0 Small (1-33%) %) -Necrotic Tissue Type Adherent Slough Adherent Slough -Structure Exposed N/A N/A -Texture (Meliza-wound Skin Appearance) Scarring Scarring -Moisture (Meliza-wound Skin Appearance) No Abnormality No Abnormality -Color (Meliza-wound Skin Appearance) No Abnormality No Abnormality -Temperature (Meliza-wound Skin No Abnormality No Abnormality Appearance) (Pt Warm) (Pt Warm) -Tenderness on Palpation (Meliza-wound No Skin Appearance) -Ulcer Cleansing Soap and Water Soap and Water -Foul Odor after Cleansing No No -Anesthetic Used 5% Lidocaine 5% Lidocaine Gel Gel WC - Nurse 2 - General Ulcer CM Notes Start: 08/16/24 13:39 Freq: Status: Active Protocol: Activity Type Activity Date Activity User E-sign Co-sign Detail Recorded Client Recorded Date Recorded By Document 08/16/24 14:37 JF [id number] 08/16/24 14:39 JF Document 08/30/24 14:41 JF [id number] 08/30/24 14:43 JF 08/16/24 08/30/24 14:37 14:41 Wound Center Nurse 2 #5 R Buttocks -Time 14:37 14:42 -Correct Patient Yes Yes -Correct Side, Site, Position Yes Yes -Correct Procedure Yes Yes -Procedure Performed Yes Yes -Type of Procedure Debridement Debridement -Clinical Debridement Subcutaneous Subcutaneous -Tissue Removed Subcutaneous Subcutaneous -Post Debridement (cm) - Length 2 2 -Post Debridement (cm) - Width 1.5 1 -Post Debridement (cm) - Depth 1 0.5 -Total Square (Post) (cm) 3.0 2 -Area of Debridement (cm) - Length 2 2 -Area of Debridement (cm) - Width 1.5 1 -Total Square (Area) (cm) 3.0 2 -Tunneling No No -Undermining/Tunneling No No -Circular Undermining No No -Wound/Ulcer Outcome Not Healed Not Healed -Ulcer Cleansing Rinsed/ Rinsed/ Irrigated with Irrigated with Saline Saline -Foul Odor after Cleansing No No -Bioengineered Tissue No No -Bleeding Controlled with Pressure Pressure -Treatment Response Procedure Procedure Tolerated Well Tolerated Well -Offloading No No -Pressure Reduction Wheelchair cushion -Debridement - Subq, 1st 20sq cm Yes Yes Pain Scale: 0-10 Numeric Is Patient Pain Free? Yes Yes - Nurse 3 - General Ulcer D/C NN Start: 08/16/24 13:39 Freq: Status: Active Protocol: Activity Type Activity Date Activity User E-sign Co-sign Detail Recorded Client Recorded Date Recorded By Document 08/16/24 14:51 DL [id number] 08/16/24 14:52 DL Document 08/30/24 15:02 KW [id number] 08/30/24 15:03 KW 08/16/24 08/30/24 14:51 15:02 Wound Care Center Nurse 3 #5 R Buttocks -Ulcer Cleansing Rinsed/ Irrigated with Saline -Foul Odor after Cleansing No -Primary Dressing Applied Promogran Ewa Matter, Silicone Border Foam 4x4 -Other Dressing dakins -Primary Dressing Covered/Secured with Dry Gauze, Secured with Tape -Other Covering ABD -Promogran [place] Matter 1 -Silicone Border Foam 4x4 1 Treatment Response Procedure Tolerated Well Pain Scale: 0-10 Numeric Is Patient Pain Free? Yes Yes WC - Visit Discharge Discharge Condition Stable Stable Ambulatory Status Wheelchair Wheelchair Transportation Private Auto Private Auto Medication Reconcilliation completed & No provided to patient/care provider Clinical Summary of Care Provided Yes Assessment/Plan Assessment/Plan (1) Stage IV pressure ulcer of sacral region: CODE(S): L89.154 - Pressure ulcer of sacral region, stage 4 PLAN: Reconstructed on 06 Jul 2024 Small persistent wound at donor site, healing. Continue dressing changes (will defer VAC at this point). Plan for Ewa dressing changes. Discussed sitting protocol. OK to start sitting this week 45 minutes per day three times per day (albeit no pressure on the area of opening). Re-asses in 2 weeks in clinic
== END 2024-09-13 23:59 | disposition home or self-care (01) ==
LOC: WC 14:15
PROVIDERS: PCP Internal Medicine; Referring Provider Surgery Plastic and Reconstructive Surgery; Visit Provider Surgery Plastic and Reconstructive Surgery
DX: L89.154 Pressure ulcer of sacral region, stage 4 (principal); Q05.9 Spina bifida, unspecified; D64.9 Anemia, unspecified
CPT/HCPCS: 11042

== ENCOUNTER 2024-10-04 13:55 | Outpatient (RCR) | payer MEDICARE, MEDICAID, SELFPAY ==
[2024-09-14 00:30] VITALS: BP 117/63; PULSE 84; RESP 18; TEMP 36.6
[2024-10-04 14:01] VITALS: BP 128/84; PULSE 97; RESP 16; TEMP 36.6
--- NOTE | 2024-10-04 14:20 | PCM.WC.PN ---
History of Present Illness Date of Service: 10/04/24 Chief Complaint: Recurrent left sacral pressure sore, Stage IV. History of Wound: History of Wound: 27 year old man with a history of Spina bifida presented to the Wound Center with a recurrent left sacral pressure sore that started a couple of months ago according to the patient. He bumped his buttocks sometime during the summer and did not tell his mother until it was infected and draining. He initially went to [facility] in April,, and was hospitalized 3 days for IV antibiotics with Meropenem and Clindamycin. Also received a dose of Vancomycin in the ED and had a skin rash. CT showed a rim-enhancing perirectal fluid collection measuring 3.9 x 6.2 cm, compatible with an abscess. He was transferred to [facility] where an I&D was performed. He has a history of Spina bifida which he has had bilateral hip surgery for hip dysplasia at age 8 and another surgery on legs bilaterally to help him wear braces to stand, which he never has been able to do. He had a sacral muscle flap at age 14 at [facility] for an ulcer. Also has a history of hydrocephalous with a shunt. Surgery 07/16/22 - Excision recurrent left sacral pressure sore, Stage IV, with partial ostectomy for osteomyelitis. Wound Care - [facility]. Operative tissue and bone cultures from 07/16/22 were positive for Enterobacter cloacae complex. He was treated with Levaquin. Pathology from 07/16/22 showed chronic reparative and reactive change. No evidence of acute osteomyelitis. Recent wound culture from 05/27/23 showed MDR Acinetobacter baumannii, Enterococcus faecalis, and Methicillin resistant Staphylococcus haemolyticus. Infectious Diseases has been consulted to assist with antibiotic management (PO vs IV). Prealbumin from 07/17/22 was 14.6. Encourage nutritional supplementation with protein to help the healing process. CT Abdomen/Pelvis from 01/29/23 - There is sclerosis of the underlying sacrum suggestive of possible chronic osteomyelitis. There is superior migration of the proximal left femur. There is deformity of the proximal left femur with the old fracture of the left femoral head. Today denies fever. His appetite is ok. Progress of Wound: 09 February 2024: Patient here for follow-up. He is here with his mother, who is his primary caregiver. Latonya was a patient of a previous member of our practice , Dr. Arechiga , who performed an excision of the patient's sacral pressure ulcer in June 2022. The patient has been doing wound care ever since at the wound care center. They are currently using the wound VAC. They have had some granulation tissue at the base of the wound but there is been limited progress overall. Latonya and his mother are frustrated and would like to potentially change the wound care as the VAC is leaking often. The patient has diverting ostomy, but there is still some mucus that comes from the anus that sometimes causes it to leak. Of note he was treated for osteomyelitis in the past from positive bone cultures, but the wound has not been biopsied. He also has a history of a pressure sore reconstruction during adolescence at [facility] which his mother reports went quite well. 24 FEB 2024: Patient presents today for evaluation of his wound with his mother present. She reports that there struggling to do wound care at home as they are living in a trailer (just the two of them) with limited resources. I talked her extensively about reconstruction today and I talked to him extensively about reconstruction and the process postoperatively. They had a reconstruction when he was an adolescent of a sacral wound that was successful at [facility] with what looks like a V to Y advancement flap and another V-Y (examined previous scars). He has an ostomy. His anus does make a small amount of mucus, but they are able to keep this of the wound pretty well. 01 Mar 2024: Labs reviewed with the patient. The patient has not seen his primary care physician in a while and she is on maternity leave. He is a patient of [facility] and is seeing Dakota Davila next week. I will talk to Dakota Davila personally in the meantime about my concerns about Latonya's labs, including his nutrition and his MCV (which was 66). His hemoglobin was 9.5 and I am concerned about a iron deficiency anemia. I think before reconstruction we need to address this. Latonya is also meeting with the child nutrition manager today to discuss increased protein intake. His albumin is 2.8 based on last week's labs and his prealbumin is 16. 30 Feb 2024: Doing alright today. No new problems. Patient here today with his mother comes all of his appointment. I talked to them about their appointment with Dakota Davila, who is the primary care provider. They met with him and he is continuing the iron supplementation for the anemia and working with him on his diet to improve his overall protein intake, and decrease added sugar intake. 29 Mar 2024: Here today for evaluation of wound. I've been talking to Dakota Davila (PA at internal medicine practice) about the patient's anemia. They're continuing to treat with iron. We will plan for repeat labs now in preparation for surgery. Patient has been compliant with medications and compliant with offloading per patient and mother's report. 12 Apr 2024: Doing well overall with dressing changes. We are working on coordinating the MRI for pre-operative planning. 03 May 2024: Doing dressing changes. Has a head xray ordered to look at Shunt, then plan is for MRI for surgical planning. Subjective Subjective 06 JUL 2024: Surgery/Procedure Performed: 1) Surgical preparation/excision of sacral wound with skin flap closure (CPT: 18292) 2) Use of fluorescence angiography for assessment of flap (following dissection) intra-operatively (using SPY machine), (CPT: 52408) 10 AUG 2024: Doing well overall. Here for evaluation at the wound care center for the first time since reconstruction. There is a small wound at the donor site on the right lateral gluteal region that is being managed with WTD dressings. No fevers chills or drainage. He's been following with ID for antibiotics. 16 August 2024: Still does not have VAC. Compliant with offloading and with dressing changes to the donor site wound. Overall doing well. 30 August 2024: Doing well. He was unable to attend appointment last week. Doing well overall. Mother reports wound is getting smaller. 04 October 2024: Here for 90 day follow (surgery was exactly 90 days ago). Reports that he's healed. Mother was sick with URI and had to cancel last couple of appointments, but Latonya and his mother are doing well now. Objective Data Objective Data Vital Signs: Vital Signs Temp Pulse Resp BP O2 Del Method 97.9 F 97 16 128/84 H Room Air 10/04/24 14:01 10/04/24 14:01 10/04/24 14:01 10/04/24 14:01 10/04/24 14:01 Oxygen Delivery Method Room Air Charges/Coding Procedures Integumentary [id number]: [id number] Global Visit Physical Exam Narrative Flap is healing nicely and is nice pink color. No induration, no fluid collections. Healed. No wounds. Const alert General Appearance: cooperative HEENT normocephalic Eyes General Eye: normal appearance of both eyes Resp normal respiratory effort Effort and Inspection: able to speak in complete sentences Extremity normal capillary refill Debridement Note Debridement Note No debridement was completed: No debridement was completed today Post-Debridement Measurements and Additional Note: Post-Debridement Measurements/Treatment - Nurse 1 - General Ulcer Assessment Start: 10/04/24 13:58 Freq: Status: Active Protocol: ANDREW Activity Type Activity Date Activity User E-sign Co-sign Detail Recorded Client Recorded Date Recorded By Document 10/04/24 14:01 [facility] [id number] 10/04/24 14:02 [facility] 10/04/24 14:01 - Today's Visit Information Type of service Follow-up Visit (Physician/MANAGEMENT COORDINATOR ) Arrival Mode Wheelchair Transfer Assistance Other Transfer Assist (Other) stand by Patient Identification Verified (Name & Yes ) Patient Requires Transmission-Based No Precautions Vital Signs Temperature (97.8 F-99.1 F) 97.9 F Temperature Source Temporal Pulse Rate (60-100) 97 Pulse Location Monitor Respiratory Rate (12-18) 16 Respiratory rate source Observation Oxygen Delivery Method Room Air Blood Pressure (90/60-120/80) 128/84 H Blood Pressure Mean (mm Hg) 98 Source Monitor Position Sitting Blood Pressure Location Right Forearm History Since Last Visit- (Skip if this is Patient's initial visit) Have you changed medications since your No last visit? Any new allergies or adverse reactions No Had a fall/change in ADL's that may No increase risk of falls Signs or symptoms of abuse and/or No neglect since last visit Have you been in the hospital since your No last visit? Has dressing in place as prescribed Yes Has compression in place as prescribed N/A Has offloadiing in place as prescribed N/A Experienced any changes in pain level or No management Left Footwear Regular Shoe Right Footwear Regular Shoe Pain Scale: 0-10 Numeric Is Patient Pain Free? Yes - Nurse 1 - General Ulcer Measurement Start: 10/04/24 13:58 Freq: Status: Active Protocol: Activity Type Activity Date Activity User E-sign Co-sign Detail Recorded Client Recorded Date Recorded By Document 10/04/24 14:01 [facility] [id number] 10/04/24 14:02 [facility] 10/04/24 14:01 Wound Center Nurse 1 #5 R Buttocks -Combined with other wound No -Current Size (cm) - Length 0.1 -Current Size (cm) - Width 0.1 -Current Size (cm) - Depth 0.1 -Total Square Cm 0.01 -Date of Last Picture (Recall this 10/04/24 field) -Photo Taken Yes -Epithelialization Large 67-100% -Texture (Meliza-wound Skin Appearance) Assessed, Scarring -Moisture (Meliza-wound Skin Appearance) Assessed -Color (Meliza-wound Skin Appearance) Assessed Assessment/Plan Assessment/Plan (1) Stage IV pressure ulcer of sacral region: CODE(S): L89.154 - Pressure ulcer of sacral region, stage 4 PLAN: Healed No signs of infection. Discussed aqaufor to newly healed skin/skin care to dry skin Discussed pressure offloading to prevent ulcers, including q2 hour and PRN turns. Referring patient to PT today for pressure mapping for a new cushion for his wheelchair F/u in 3 months for skin check
--- NOTE | 2024-10-05 10:25 | WC ---
PHOTO 10/04/24 RIGHT BUTTOCK
== END 2024-10-13 23:59 | disposition home or self-care (01) ==
LOC: WC 13:55
PROVIDERS: PCP Internal Medicine; Referring Provider Surgery Plastic and Reconstructive Surgery; Visit Provider Surgery Plastic and Reconstructive Surgery
DX: L89.154 Pressure ulcer of sacral region, stage 4 (principal); Q05.9 Spina bifida, unspecified; Z99.3 Dependence on wheelchair
CPT/HCPCS: 99213; G0463